=== PATIENT | male | born 1945 | race Caucasian/White ===

== ENCOUNTER → 2016-06-14 | Outpatient (CLI) | payer OTHER, MEDICARE ==
[2016-06-14 18:01] LABS: BASO % 0.6 %; BASO ABS # 0.05 K/uL (0-0.2); COMPLETE YES; EOS % 3.2 %; HEMATOCRIT 39.1 % (42-52); IG% 0.3 %; LYMPH ABS # 1.35 K/uL (1.2-3.4); MEAN CELL VOLUME 96.5 fL (80-100); MEAN CORPUSCULAR HEMOGLOBIN 32.1 pg (25-34); MEAN CORPUSCULAR HGB CONC 33.2 g/dl (32-36); MEAN PLATELET VOLUME 11.1 fL (7.4-10.4); MONO % 9.1 %; NEUT % 69.8 %; PLATELET COUNT 233 K/uL (130-400); RED BLOOD COUNT 4.05 M/uL (4.7-6.1); WHITE BLOOD COUNT 7.92 K/uL (4.8-10.8)
[2016-06-14 18:08] LABS: ALT/SGPT 17 U/L (12-78); BLOOD UREA NITROGEN 52 mg/dl (7-18); BUN/CREATININE RATIO 22.4 (10-20); CALCIUM 9.2 mg/dl (8.5-10.1); CARBON DIOXIDE 27 mmol/L (21-32); CHLORIDE 107 mmol/L (98-107); CHOLESTEROL 186 mg/dl (0-200); GLUCOSE 126 mg/dl (70-99); POTASSIUM 4.8 mmol/L (3.5-5.1); SODIUM 144 mmol/L (136-145); TRIGLYCERIDES 156 mg/dl (0-150); VERY LOW DENSITY LIPOPROT CALC 31 mg/dl
[2016-06-14 18:17] LABS: ALB/GLOB RATIO 0.8 (0.9-2); ALKALINE PHOSPHATASE 82 U/L (45-117); AST/SGOT 15 U/L (15-37); CHOLESTEROL/HDL RATIO 4.1; HDL CHOLESTEROL 45 mg/dl; LDL CHOLESTEROL CALCULATED 110 mg/dl
[2016-06-15 06:09] LABS: ESTIMATED AVERAGE GLUCOSE 174 mg/dl; HA1C FLAG Normal (Normal)
== END | disposition home or self-care (01) ==
LOC: C.LABMFLN 11:18
PROVIDERS: ATTEND Family Medicine
DX: E11.9 Type 2 diabetes mellitus without complications (principal); E03.9 Hypothyroidism, unspecified; E78.5 Hyperlipidemia, unspecified

== ENCOUNTER → 2016-09-15 | Outpatient (CLI) | payer OTHER, MEDICARE ==
[2016-09-15 18:10] LABS: THYROID STIMULATING HORMONE 2.48 uIu/ml (0.300-4.500)
== END | disposition home or self-care (01) ==
LOC: C.LABMFLN 07:29
PROVIDERS: ATTEND Family Medicine
DX: E03.9 Hypothyroidism, unspecified (principal)

== ENCOUNTER → 2016-12-24 | Outpatient (CLI) | payer OTHER, MEDICARE ==
[2016-12-24 18:03] LABS: BLOOD UREA NITROGEN 51 mg/dl (7-18); BUN/CREATININE RATIO 19.6 (10-20); CALCIUM 9.4 mg/dl (8.5-10.1); CARBON DIOXIDE 30 mmol/L (21-32); CHLORIDE 109 mmol/L (98-107); GLUCOSE 158 mg/dl (70-99); PHOSPHORUS 3.1 mg/dl (2.5-4.9); POTASSIUM 4.7 mmol/L (3.5-5.1); SODIUM 143 mmol/L (136-145)
[2016-12-25 06:19] LABS: ESTIMATED AVERAGE GLUCOSE 166 mg/dl; HA1C FLAG Normal (Normal)
== END | disposition home or self-care (01) ==
LOC: C.LABMFLN 13:08
PROVIDERS: ATTEND Family Medicine
DX: E11.22 Type 2 diabetes mellitus with diabetic chronic kidney disease (principal); N18.9 Chronic kidney disease, unspecified

== ENCOUNTER → 2017-04-13 | Outpatient (CLI) | payer OTHER, MEDICARE ==
[2017-04-13 17:56] LABS: BLOOD UREA NITROGEN 47 mg/dl (7-18); BUN/CREATININE RATIO 18.6 (10-20); CARBON DIOXIDE 29 mmol/L (21-32); CHLORIDE 108 mmol/L (98-107); CREATININE 2.51 mg/dl (0.60-1.40); GLUCOSE 171 mg/dl (70-99); PHOSPHORUS 3.3 mg/dl (2.5-4.9); POTASSIUM 4.5 mmol/L (3.5-5.1); SODIUM 140 mmol/L (136-145)
[2017-04-13 18:19] LABS: BASO % 0.8 %; BASO ABS # 0.05 K/uL (0-0.2); HEMATOCRIT 40.2 % (42-52); IG% 0.2 %; LYMPH % 15.4 %; LYMPH ABS # 0.96 K/uL (1.2-3.4); MEAN CELL VOLUME 99.8 fL (80-100); MEAN CORPUSCULAR HEMOGLOBIN 32.8 pg (25-34); MEAN CORPUSCULAR HGB CONC 32.8 g/dl (32-36); MEAN PLATELET VOLUME 11.6 fL (7.4-10.4); MONO % 7.5 %; NEUT % 72.1 %; PLATELET COUNT 212 K/uL (130-400); RED BLOOD COUNT 4.03 M/uL (4.7-6.1); WHITE BLOOD COUNT 6.25 K/uL (4.8-10.8)
[2017-04-13 19:20] LABS: ANISOCYTOSIS PRESENT; COMPLETE YES
[2017-04-14 07:00] LABS: ESTIMATED AVERAGE GLUCOSE 169 mg/dl; HA1C FLAG Normal (Normal)
== END | disposition home or self-care (01) ==
LOC: C.LABMFLN 11:10
PROVIDERS: ATTEND Family Medicine
DX: N18.9 Chronic kidney disease, unspecified (principal); E11.9 Type 2 diabetes mellitus without complications

== ENCOUNTER → 2017-07-28 | Outpatient (CLI) | payer OTHER, MEDICARE ==
[2017-07-28 18:00] LABS: BASO % 0.8 %; BASO ABS # 0.06 K/uL (0-0.2); EOS % 4.2 %; EOS ABS # 0.31 K/uL (0-0.5); HEMATOCRIT 39.8 % (42-52); IG# 0.01 K/uL (0.00-0.02); LYMPH % 14.4 %; LYMPH ABS # 1.06 K/uL (1.2-3.4); MEAN CELL VOLUME 99.5 fL (80-100); MEAN CORPUSCULAR HEMOGLOBIN 32.5 pg (25-34); MEAN CORPUSCULAR HGB CONC 32.7 g/dl (32-36); MEAN PLATELET VOLUME 11.4 fL (7.4-10.4); MONO % 8.8 %; MONO ABS # 0.65 K/uL (0.11-0.59); NEUT % 71.7 %; NEUT ABS # 5.27 K/uL (1.4-6.5); PLATELET COUNT 235 K/uL (130-400); RED CELL DISTRIBUTION WIDTH CV 14.1 % (11.5-14.5); RED CELL DISTRIBUTION WIDTH SD 51.1 fL (36.4-46.3); WHITE BLOOD COUNT 7.36 K/uL (4.8-10.8)
[2017-07-28 18:13] LABS: ALT/SGPT 19 U/L (12-78); AST/SGOT 15 U/L (15-37); BLOOD UREA NITROGEN 38 mg/dl (7-18); CALCIUM 9.2 mg/dl (8.5-10.1); CARBON DIOXIDE 29 mmol/L (21-32); CREATININE 2.21 mg/dl (0.60-1.40); GLUCOSE 147 mg/dl (70-99); SODIUM 141 mmol/L (136-145)
[2017-07-28 18:17] LABS: ALKALINE PHOSPHATASE 101 U/L (45-117); CHOLESTEROL 216 mg/dl (0-200); LDL CHOLESTEROL CALCULATED 133 mg/dl; TOTAL PROTEIN 7.3 gm/dl (6.4-8.2)
[2017-07-29 06:36] LABS: HEMOGLOBIN A1C 7.9 % (4.5-5.6)
== END | disposition home or self-care (01) ==
LOC: C.LABMFLN 16:15
PROVIDERS: ATTEND Family Medicine
DX: I25.10 Atherosclerotic heart disease of native coronary artery without angina pectoris (principal); E11.9 Type 2 diabetes mellitus without complications; E78.5 Hyperlipidemia, unspecified; E03.9 Hypothyroidism, unspecified

== ENCOUNTER 2020-01-13 00:45 | Inpatient (IN) ==
[2020-01-13 01:40] LABS: Basophils # (auto) 0.03 K/uL (0-0.2); Basophils % (auto) 0.5 %; Eosinophils # (auto) 0.28 K/uL (0-0.5); Eosinophils % (auto) 4.5 %; Hemoglobin 11.4 g/dL (14.0-18.0); Lymphocytes # (auto) 0.97 K/uL (1.2-3.4); Lymphocytes % (auto) 15.6 %; Mean Corpuscular Hemoglobin 31.7 pg (25-34); Mean Corpuscular Hgb Conc 32.6 g/dL (32-36); Mean Corpuscular Volume 97.2 fL (80-100); Monocytes # (auto) 0.34 K/uL (0.11-0.59); Monocytes % (auto) 5.5 %; Neutrophils # (auto) 4.61 K/uL (1.4-6.5); Neutrophils % (auto) 73.9 %; Platelet Count 188 K/uL (130-400); RDW Coefficient of Variation 15.3 % (11.5-14.5); RDW Standard Deviation 54.6 fL (36.4-46.3); White Blood Count 6.23 K/uL (4.8-10.8)
[2020-01-13 01:56] LABS: Calcium 8.3 mg/dl (8.5-10.1); Creatinine Clr Calc Pharmacy 16.7 ml/min; Est GFR (African American) 17.5; Est GFR (Non-African American) 15.1; Potassium 4.3 mmol/L (3.5-5.1)
[2020-01-13 02:08] LABS: Appearance Urine Clear (Clear); Bacteria Urine Automated Negative (Negative); Bilirubin Urine Negative (Negative); Blood Urine 3+ (Negative); Epithelial Cell Urine Auto 0-5 /lpf (0-5); Glucose Urine UA Trace (Negative); Ketones Urine Negative (Negative); Leukocyte Esterase Urine Negative (Negative); Nitrite Urine Negative (Negative); Protein Urine 3+ (Negative); RBC Urine Automated >30 /hpf (0-4); Specific Gravity Urine 1.015 (1.000-1.030); Urobilinogen Urine Negative (Negative)
[2020-01-13 02:13] LABS: Color Urine Red
--- NOTE | 2020-01-13 02:15 | Emergency Department Note ---
Impression & Plan Hematuria, Acute urinary retention ED Provider Note NAME: JORGE CHOI AGE: 74 SEX: M ARRIVES VIA: Walk-In INFORMANT: Patient, patient's ED PROVIDER(S): Kelly Kenny DO CHIEF COMPLAINT: Hematuria and urinary retention PLAN: Disposition: Admission to the [facility] for evaluation by urology Condition: Stable MEDICAL DECISION MAKING: Patient presents to the emergency department unable to urinate. The patient has a history of bladder cancer and underwent a scope [address] Awan. Since that time, he has had hematuria. Around 4 PM this evening, the patient noted that he was having difficulty urinating and that he could only pass dribbles of urine. Later on in the evening, the patient could not pass any urine and became quite uncomfortable. Bladder scan showed 240 mL's of urine but the patient was quite uncomfortable. A Rosa catheter was placed and he passed a large amount of urine Triage Nursing notes reviewed and agree them. Additional history obtained from the patient's who was at the bedside Prior medical records reviewed Vital Signs: reviewed and remarkable for hypertension Differential diagnosis: Urinary retention, hematuria, obstructive uropathy, anemia ER treatment provided: Rosa catheter placement, bladder scan, Rosa catheter irrigation, IV normal saline Laboratory studies: See below Imaging studies: Bladder scan: 240 mL's of urine HPI: 74/M arrives for evaluation of urinary retention. The patient has a history of bladder cancer and underwent a scope [address] Awan. Since that time he has had hematuria. Around 4 PM this evening, the patient noted that he was having difficulty urinating and that he could only pass dribbles of urine. Later on in the evening, the patient could not pass any urine and became quite uncomfortable. The patient became quite nauseated when trying to urinate. ROS: See above HPI for pertinent positives & negatives. A total of 10 systems reviewed and were otherwise negative. PAST MEDICAL HISTORY:See Below PAST SURGICAL HISTORY:See Below FAMILY HISTORY:See Below SOCIAL HISTORY:See Below HOME MEDICATIONS:See list ALLERGIES:See VITALS:See Below PHYSICAL EXAMINATION: HEENT: Head - normocephalic and atraumatic Pupils are equal, round, and reactive to light. Extraocular eye muscles are intact, and sclera are anicteric. Nose - moist nasal mucosa without discharge. Mouth - moist buccal mucosa. Oropharynx is nonerythematous and there is no tonsillar exudate or edema noted. Neck: Supple; no cervical lymphadenopathy Heart: Regular rate and rhythm. There is a normal S1 and S2 with no murmurs, clicks, or gallops appreciated. Lungs: Clear to auscultation bilaterally with no wheezes, rales, or rhonchi. Abdomen: Extremely distended and protuberant. Moderate tenderness to palpation in suprapubic region. There are normal bowel sounds. Extremities: No evidence of cyanosis, clubbing, or edema. There are easily palpable peripheral pulses. Skin: warm and dry with good turgor and no rashes. ED COURSE: Times/Reassessments: 0100: The patient was evaluated in room a 9. A complete history and physical was performed. Previous electronic medical records were reviewed. Nursing staff did a bladder scan and then placed a Rosa catheter. Large amount of blood and urine came from the bladder. They attempted irrigation but the bleeding persisted. Laboratory studies were drawn as above. The patient was mildly anemic. He had stopped his baby aspirin 2 days ago because of the persistent bleeding. He was anticipating the need for cautery according to the discussion he had with Dr. Awan earlier in the week. Patient was noted to have an increased BUN and creatinine compared to last week. He was given a bolus of IV normal saline solution. A continuous bladder irrigation set up was performed and the catheter was switched out. The patient will require admission to the [facility] and then evaluation by urology. The patient remained hemodynamically stable. Patient started to have increased pain and was given a dose of Dilaudid here in the emergency department prior to admission. Kelly Kenny DO Past Med/Surg History Medical History (Updated 01/14/20 @ 01:32 by Kelly Kenny DO) Acid reflux Adenomatous polyp of colon Benign essential hypertension Benign prostatic hyperplasia CAD (coronary atherosclerotic disease) Cancer HX BLADDER CANCER SURGERY-CHEMO/RADIATION [facility] 2017 Chronic kidney disease F/U DR LARA Chronic obstructive pulmonary disease RARELY NEED TO USE RESCUE INHALER. INCREASED SHORTNESS OF BREATH CURRENTLY, BUT DUE TO ANEMIA. Diabetes mellitus Diabetes mellitus, type 2 Generalized osteoarthritis of multiple sites Gout Gross hematuria Hearing loss History of stroke without residual deficits OCCURRED DURING AAA REPAIR [facility] 5-6 YRS 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-NO ISSUES SINCE Hyperlipidemia Hypothyroidism Kidney stones Passed x1 Malignant neoplasm of lateral wall of bladder (01/16/18) Past myocardial infarction Port-A-Cath in place CURRENT FUNCTIONING A-PORT IN PLACE Secondary hyperparathyroidism Vitamin D deficiency Surgical History H/O arthroscopy of knee H/O colonoscopy History of biopsy of bladder History of cardiac cath NO STENTS (~10 YEARS AGO)-NO ISSUES SINCE History of carpal tunnel release RIGHT History of cataract surgery BILATERAL History of cystoscopy S/P AAA (abdominal aortic aneurysm) repair Status post biopsy of kidney Family History Grandfather , in his eighties No problems noted. Grandmother , young cause unknown No problems noted. Grandfather , in his eighties No problems noted. Grandmother , did have breast cancer but in her eighties of unknown cause No problems noted. Father , He in his sixties had had three strokes and high blood pressure He had had a kidney removed perhaps from cancer No problems noted. Mother , in her mid seventies complications from smoking No problems noted. Daughter Age: 48 No problems noted. Daughter Age: 45 No problems noted. Daughter Age: 40 No problems noted. Brother , at age 7 of a stroke No problems noted. Social History Smoking Status: Current every day smoker Cigarettes Per Day: 10; Second Hand Exposure: No; Hx Alcohol Use: No Hx Substance Use: No Preferred Language: Slovenian Communication Ability: Effective Visual Impairment: No Limitations Senior Occupational Therapist Required: No Beliefs That Will Affect Care: None Current Living Situation: Alone current occupational status: retired Feels Safe at Home: Yes Safety Concerns: Feels Safe At This Time Allergies Allergies Allergy/AdvReac Type Severity Reaction Status Date / Time atorvastatin [From Lipitor] AdvReac muscle Verified 01/13/20 02:20 aches RADIOACTIVE NUCLEAR STRESS Allergy Unknown "BP WENT Uncoded 01/13/20 02:20 TEST DYE OUT OF WHACK" Home Meds Home Medications Medication Instructions Recorded Confirmed albuterol sulfate 2 puff INHALATION Q6H PRN 02/27/19 01/13/20 aspirin 81 mg PO QAM 08/14/19 01/13/20 amlodipine 2.5 mg tablet 2.5 mg PO DAILY@18 tab 10/22/19 01/13/20 Previous Rx's Medication Instructions Recorded allopurinol 300 mg tablet 300 mg PO QAM #90 tab 03/16/19 valsartan 160 mg tablet 160 mg PO QAM #90 tab 07/02/19 metoprolol succinate 100 mg 100 mg PO QPM #90 tab 07/09/19 tablet,extended release 24 hr lancets 33 gauge #100 ea 08/17/19 dulaglutide 0.75 mg/0.5 mL 0.75 mg SQ WEEKLY #2 ml 09/19/19 subcutaneous pen injector levothyroxine 100 mcg tablet 100 mcg PO DAILY #90 tab 09/19/19 blood sugar diagnostic #100 ea 10/08/19 rosuvastatin 20 mg tablet 20 mg PO DAILY #90 tab 12/04/19 Results & Data (ED) Vital Signs Vital Signs - 24 hr 01/13/20 02:28 01/13/20 04:30 Pulse Rate [Right Finger] 70 82 Respiratory Rate 16 16 Blood Pressure [Right Arm] 163/92 H 157/95 H Blood Pressure Mean [Right Arm] 115 115 Pulse Oximetry 97 96 Oxygen Delivery Method Room Air Room Air Laboratory Data Result diagrams: 01/13/20 12:20 01/13/20 12:26 Lab Results 01/13/20 01/13/20 01/13/20 Range/Units 01:20 01:28 01:31 WBC 6.23 (4.8-10.8) K/uL RBC 3.60 L (4.7-6.1) M/uL Hgb 11.4 L (14.0-18.0) g/dL Hct 35.0 L (42-52) % MCV 97.2 (80-100) fL MCH 31.7 (25-34) pg MCHC 32.6 (32-36) g/dL RDW Std Deviation 54.6 H (36.4-46.3) fL RDW Coeff of Josie 15.3 H (11.5-14.5) % Plt Count 188 (130-400) K/uL MPV 10.0 (7.4-10.4) fL Immature Gran % (Auto) 0.0 % Neut % (Auto) 73.9 % Lymph % (Auto) 15.6 % [place] % (Auto) 5.5 % Eos % (Auto) 4.5 % Baso % (Auto) 0.5 % Neut # (Auto) 4.61 (1.4-6.5) K/uL Lymph # (Auto) 0.97 L (1.2-3.4) K/uL [place] # (Auto) 0.34 (0.11-0.59) K/uL Eos # (Auto) 0.28 (0-0.5) K/uL Baso # (Auto) 0.03 (0-0.2) K/uL Immature Gran # (Auto) 0.00 (0.00-0.02) K/uL Sodium 145 (136-145) mmol/L Potassium 4.3 (3.5-5.1) mmol/L Chloride 113 H (98-107) mmol/L Carbon Dioxide 28 (21-32) mmol/L Anion Gap 4.0 (3-11) BUN 60 H (7-18) mg/dl Creatinine 3.76 H (0.6-1.4) mg/dl Est Cr Clr Drug Dosing 16.7 ml/min Est GFR ( Amer) 17.5 Est GFR (Non-Af Amer) 15.1 BUN/Creatinine Ratio 16.0 (10-20) Glucose 176 H (70-99) mg/dl Calcium 8.3 L (8.5-10.1) mg/dl Urine Color Red Urine Appearance Clear (Clear) Urine pH 7.0 (4.5-7.5) Ur Specific [place] 1.015 (1.000-1.030) Urine Protein 3+ H (Negative) Urine Glucose (UA) Trace H (Negative) Urine Ketones Negative (Negative) Urine Blood 3+ H (Negative) Urine Nitrite Negative (Negative) Urine Bilirubin Negative (Negative) Urine Urobilinogen Negative (Negative) Ur Leukocyte Esterase Negative (Negative) Urine WBC (Auto) 1-5 (0-5) /hpf Urine RBC (Auto) >30 H (0-4) /hpf U Hyaline Cast (Auto) 1-5 (0-5) /lpf U Epithel Cells (Auto) 0-5 (0-5) /lpf Urine Bacteria (Auto) Negative (Negative) Urine Crystals Not Reportable Administered Medications Allopurinol (Allopurinol 300 Mg Tab) 300 mg PO QAM [facility] Stop: 02/12/20 08:59 Last Admin: 01/13/20 09:40 Dose: 300 mg Documented by: [id number] Amlodipine Besylate (Amlodipine Besylate 5 Mg Tab) 2.5 mg PO DAILY@1800 [facility] Stop: 02/12/20 17:59 Last Admin: 01/13/20 17:59 Dose: 2.5 mg Documented by: [id number] Glucose (Glucose 40% Gel 15 Gm Tube) 15 - 30 gm PO UD PRN; Protocol PRN Reason: Hypoglycemia Protocol Stop: 02/12/20 06:34 Last Admin: 01/14/20 00:55 Dose: 15 gm Documented by: [id number] Ceftriaxone Sodium 1,000 mg/ (Dextrose) 50 mls @ 100 mls/hr IV Q24H JESSE; Protocol Stop: 01/23/20 07:59 Last Infusion: 01/13/20 08:47 Dose: 0 mls/hr Documented by: [id number] Admin: 01/13/20 08:15 Dose: 100 mls/hr Documented by: [id number] Sodium Chloride (Nss 1000ml) 1,000 mls @ 80 mls/hr IV .[id number] [facility] Stop: 02/12/20 06:34 Last Admin: 01/13/20 19:20 Dose: 80 mls/hr Documented by: [id number] Infusion: 01/13/20 19:20 Dose: 0 mls/hr Documented by: [id number] Admin: 01/13/20 07:55 Dose: 80 mls/hr Documented by: [id number] Insulin Glargine (Insulin Glargine Solostar 100 Units/Ml 3 Ml Pen) 13 units SC BID [facility] Stop: 02/12/20 08:59 Last Admin: 01/13/20 20:32 Dose: 13 units Documented by: [id number] Cosigned by: [id number] Admin: 01/13/20 09:41 Dose: 13 units Documented by: [id number] Cosigned by: [id number] Metoprolol Succinate (Metoprolol Succ 50mg Ext Rel Tab) 100 mg PO QPM [facility] Stop: 02/12/20 20:59 Last Admin: 01/13/20 19:22 Dose: 100 mg Documented by: [id number] Rosuvastatin Calcium (Rosuvastatin Calcium 20 Mg Tab) 20 mg PO DAILY@1800 [facility] Stop: 02/12/20 17:59 Last Admin: 01/13/20 17:59 Dose: 20 mg Documented by: [id number] Valsartan (Valsartan 80 Mg Tab) 160 mg PO QAM JESSE Stop: 02/12/20 08:59 Last Admin: 01/13/20 09:41 Dose: 160 mg Documented by: [id number] Discontinued Medications Hydromorphone HCl (Hydromorphone Inj 0.5 Mg/0.5 Ml Syr) 0.5 mg IV NOW STA Stop: 01/13/20 04:58 Last Admin: 01/13/20 05:17 Dose: 0.5 mg Documented by: [id number] Sodium Chloride (Nss) 500 mls @ 999 mls/hr IV .Q31M ONE Stop: 01/13/20 03:02 Last Infusion: 01/13/20 03:41 Dose: 0 mls/hr Documented by: [id number] Admin: 01/13/20 03:16 Dose: 999 mls/hr Documented by: [id number] Insulin Aspart (Insulin Aspart 100 Units/Ml 3 Ml Pen) 0 units SC ACHS JESSE Stop: 02/12/20 07:29 Last Admin: 01/13/20 20:32 Dose: Not Given Documented by: [id number] Cosigned by: [id number] Admin: 01/13/20 17:45 Dose: 5 units Documented by: [id number] Cosigned by: [id number] Admin: 01/13/20 12:46 Dose: 1 units Documented by: [id number] Cosigned by: [id number] Admin: 01/13/20 09:41 Dose: 2 units Documented by: [id number] Cosigned by: [id number] Insulin Human NPH (Insulin Human Nph) 20 units SC NOW ONE Stop: 01/13/20 16:31 Last Admin: 01/13/20 17:45 Dose: 20 units Documented by: [id number] Cosigned by: [id number] Lidocaine HCl (Lidocaine 2% Jelly 5 Ml Tube) Confirm Administered Dose 5 ml .ROUTE .STK-MED ONE Stop: 01/13/20 03:19 Last Admin: 01/13/20 03:20 Dose: 5 ml Documented by: [id number] Prednisone (Prednisone 20 Mg Tab) 40 mg PO NOW ONE Stop: 01/13/20 16:16 Last Admin: 01/13/20 17:06 Dose: 40 mg Documented by: [id number] Discharge Plan Visit Data Chief Complaint: Unable to Void Stated Complaint: UNABLE TO VOID ED Provider: Kelly Kenny Discharge Problem: Hematuria, Acute urinary retention Patient Disposition: Admitted As Inpatient Discharge Instructions Interventions: ED Discharge Assessment Last Done: 01/13/20 06:20 Discharge Problem: Hematuria Qualifiers: Hematuria type: gross Qualified Code(s): R31.0 - Gross hematuria
[2020-01-13] MEDS ORDERED: SODIUM CHLORIDE 0.9% 500 ML IV ONE (02:32)
[2020-01-13] MEDS ORDERED: LIDOCAINE 2% JELLY 5 ML TUBE ONE (03:18)
--- NOTE | 2020-01-13 04:46 | History & Physical Report ---
Date of Service January 13, 2020 Assessment & Plan (1) Gross hematuria: 74-year-old male with past medical history hyperlipidemia, coronary artery disease, hypertension, hypothyroidism, type 2 diabetes, chronic kidney disease stage IV, gout, BPH, T2 bladder cancer with TURBT in December 2017 and chemoradiation presents with concerns of hematuria and inability to void. Hematuria UA showing 3+ blood, >30 RBC with no markers of concern for infection Patient was seen by urology Dr. Awan on January 07, 2020 and had clear cystoscopy showing radiation cystitis, no papillary tumors, no active bleeding Most recent PSA was 0.551 last week We will start CBI here We will start IV Rocephin for now Holding ASA 81 mg Appreciate urology consult Concern for metastasis Recent CT on 12/24/19 showed: 2 sclerotic lesions in the bony pelvis that were highly concerning for osseous metastatic disease PET scan 01/07/20 showed: Mildly enlarged 12 mm FDG avid AP window lymph node and bilateral FDG avid adrenal nodules. No evidence of FDG avid abdominal or pelvic lymphadenopathy. The preceding described sclerotic skeletal lesions are not FDG avid Patient wants to see oncology as outpatient, however this has yet to happen. Appreciate oncology consult while inpatient ALESSANDRA in setting of CKD IV Creatinine 3.76 admission. Baseline creatinine ~2.2-3.0 mg/dL IVF with NSS@80 mls/hr. Avoid nephrotoxins where able Daily BMP HLD/CAD/HTN Continue amlodipine 2.5 mg, metoprolol succinate ER 100 mg, rosuvastatin 20 mg, valsartan 160 mg. Holding ASA 81 as above DM 2 A1c 6.30 November 2019 Holding home dulaglutide. Will place on SSI Hypothyroidism TSH WNL 0.756 December 2019 Continue levothyroxine 100 mcg Gout Continue allopurinol 300 mg Tobacco abuse Patient was strongly advised to quit smoking. Continue cessation education FEN/GI: HH/DM2 diet. NSS@80 DVT prophylaxis: Chemoprophylaxis deferred. SCDs Full code Dispo: MedSurg History of Present Illness Chief Complaint: Hematuria Primary Care Provider: Hilda Berry MD 74-year-old male with past medical history hyperlipidemia, coronary artery disease, hypertension, hypothyroidism, type 2 diabetes, chronic kidney disease stage IV, gout, BPH, T2 bladder cancer with TURBT in December 2017 and chemoradiation presents with concerns of hematuria and inability to void. Patient was seen by urology Dr. Awan on January 07, 2020 for cystoscopy (showing radiation cystitis, no papillary tumors, no active bleeding) for recurrent bleeding. Patient noted small amount of blood on rare occasions. Before in the prior several months he was well controlled. Earlier this year he had cauterization secondary to refractory bleeding. Since the cystoscopy patient notes ongoing worsening hematuria. Today patient noted an inability to urinate with last urination occurring about 4 PM, which prompted ER visit. Patient notes associated nausea when attempting to urinate and had some diarrhea in the ED. Patient otherwise denies any fevers, chills, sweats, dysuria, urinary urgency/frequency, other urethral discharge, abdominal pain, chest pain, shortness of breath, known sick contacts or recent travel anywhere. Patient with no other acute concerns or complaints. No pelvic injury. Recent CT on 12/24/19 showed: 2 sclerotic lesions in the bony pelvis that were highly concerning for osseous metastatic disease. Most recent PSA was 0.551 on 01/04/20. PET scan 01/07/20 showed: Mildly enlarged 12 mm FDG avid AP window lymph node and bilateral FDG avid adrenal nodules. No evidence of FDG avid abdominal or pelvic lymphadenopathy. The preceding described sclerotic skeletal lesions are not FDG avid. Plan was for patient to follow-up with oncology later this week, but this has not occurred yet. Pertinent labs: Hemoglobin 11.4, BUN 60, creatinine 3.76, glucose 176, otherwise largely unremarkable UA: 3+ blood, >30 RBC ER course: Rosa placed draining large amount of urine after bladder scan showed 240 mL of urine Social history: Tobacco1/2 pack/day smoker. Denies any alcohol or illicit drug use. Allergies Allergy/AdvReac Type Severity Reaction Status Date / Time atorvastatin [From Lipitor] AdvReac muscle Verified 01/13/20 02:20 aches RADIOACTIVE NUCLEAR STRESS Allergy Unknown "BP WENT Uncoded 01/13/20 02:20 TEST DYE OUT OF WHACK" Home Medications Home Medications Medication Instructions Recorded Confirmed Type albuterol sulfate 2 puff INHALATION Q6H PRN 02/27/19 01/13/20 History allopurinol 300 mg tablet 300 mg PO QAM #90 tab 03/16/19 01/13/20 Rx valsartan 160 mg tablet 160 mg PO QAM #90 tab 07/02/19 01/13/20 Rx metoprolol succinate 100 mg 100 mg PO QPM #90 tab 07/09/19 01/13/20 Rx tablet,extended release 24 hr aspirin 81 mg PO QAM 08/14/19 01/13/20 History lancets 33 gauge #100 ea 08/17/19 01/07/20 Rx dulaglutide 0.75 mg/0.5 mL 0.75 mg SQ WEEKLY #2 ml 09/19/19 01/13/20 Rx subcutaneous pen injector levothyroxine 100 mcg tablet 100 mcg PO DAILY #90 tab 09/19/19 01/13/20 Rx blood sugar diagnostic #100 ea 10/08/19 01/07/20 Rx amlodipine 2.5 mg tablet 2.5 mg PO DAILY@18 tab 10/22/19 01/13/20 History rosuvastatin 20 mg tablet 20 mg PO DAILY #90 tab 12/04/19 01/13/20 Rx Past Med/Surg History Medical History (Updated 01/14/20 @ 01:32 by Kelly Kenny DO) Acid reflux Adenomatous polyp of colon Benign essential hypertension Benign prostatic hyperplasia CAD (coronary atherosclerotic disease) Cancer HX BLADDER CANCER SURGERY-CHEMO/RADIATION [facility] 2018 Chronic kidney disease F/U DR LARA Chronic obstructive pulmonary disease RARELY NEED TO USE RESCUE INHALER. INCREASED SHORTNESS OF BREATH CURRENTLY, BUT DUE TO ANEMIA. Diabetes mellitus Diabetes mellitus, type 2 Generalized osteoarthritis of multiple sites Gout Gross hematuria Hearing loss History of stroke without residual deficits OCCURRED DURING AAA REPAIR [facility] 5-6 YRS 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-NO ISSUES SINCE Hyperlipidemia Hypothyroidism Kidney stones Passed x1 Malignant neoplasm of lateral wall of bladder (01/16/18) Past myocardial infarction Port-A-Cath in place CURRENT FUNCTIONING A-PORT IN PLACE Secondary hyperparathyroidism Vitamin D deficiency Surgical History H/O arthroscopy of knee H/O colonoscopy History of biopsy of bladder History of cardiac cath NO STENTS (~10 YEARS AGO)-NO ISSUES SINCE History of carpal tunnel release RIGHT History of cataract surgery BILATERAL History of cystoscopy S/P AAA (abdominal aortic aneurysm) repair Status post biopsy of kidney Family History Grandfather , in his eighties No problems noted. Grandmother , young cause unknown No problems noted. Grandfather , in his eighties No problems noted. Grandmother , did have breast cancer but in her eighties of unknown cause No problems noted. Father , He in his sixties had had three strokes and high blood pressure He had had a kidney removed perhaps from cancer No problems noted. Mother , in her mid seventies complications from smoking No problems noted. Daughter Age: 48 No problems noted. Daughter Age: 45 No problems noted. Daughter Age: 40 No problems noted. Brother , at age 7 of a stroke No problems noted. Social History Smoking Status: Current every day smoker Cigarettes Per Day: 10; Second Hand Exposure: No; Hx Alcohol Use: No Hx Substance Use: No Preferred Language: Sami Communication Ability: Effective Visual Impairment: No Limitations Deicer Finisher Required: No Beliefs That Will Affect Care: None Current Living Situation: Alone current occupational status: retired Feels Safe at Home: Yes Safety Concerns: Feels Safe At This Time Review of Systems Review of Systems: All systems reviewed & are unremarkable except as noted in HPI & below Results & Data Results & Data ([facility]) Vital Signs (Past 12 Hours) Vital Signs Temp Pulse Pulse Resp BP BP Pulse Ox 01/13/20 02:28 70 16 163/92 H 97 01/13/20 00:53 36.6 C 87 18 160/85 H 95 Laboratory Results Laboratory Results - last 24 hr 01/13/20 01/13/20 01/13/20 01:20 01:28 01:31 WBC 6.23 RBC 3.60 L Hgb 11.4 L Hct 35.0 L MCV 97.2 MCH 31.7 MCHC 32.6 RDW Std Deviation 54.6 H RDW Coeff of Josie 15.3 H Plt Count 188 MPV 10.0 Immature Gran % (Auto) 0.0 Neut % (Auto) 73.9 Lymph % (Auto) 15.6 [place] % (Auto) 5.5 Eos % (Auto) 4.5 Baso % (Auto) 0.5 Neut # (Auto) 4.61 Lymph # (Auto) 0.97 L [place] # (Auto) 0.34 Eos # (Auto) 0.28 Baso # (Auto) 0.03 Immature Gran # (Auto) 0.00 Sodium 145 Potassium 4.3 Chloride 113 H Carbon Dioxide 28 Anion Gap 4.0 BUN 60 H Creatinine 3.76 H Est Cr Clr Drug Dosing 16.7 Est GFR ( Amer) 17.5 Est GFR (Non-Af Amer) 15.1 BUN/Creatinine Ratio 16.0 Glucose 176 H Calcium 8.3 L Urine Color Red Urine Appearance Clear Urine pH 7.0 Ur Specific [place] 1.015 Urine Protein 3+ H Urine Glucose (UA) Trace H Urine Ketones Negative Urine Blood 3+ H Urine Nitrite Negative Urine Bilirubin Negative Urine Urobilinogen Negative Ur Leukocyte Esterase Negative Urine WBC (Auto) 1-5 Urine RBC (Auto) >30 H U Hyaline Cast (Auto) 1-5 U Epithel Cells (Auto) 0-5 Urine Bacteria (Auto) Negative Urine Crystals Not Reportable Code Status & VTE Plan Code Status Full Supervising Physician Co-Signing Physician Notes Attending addendum: I have physically seen this patient, have supervised the medical residents activities, and agree with the H&P unless as otherwise noted. Assessment and Plan: Gross hematuria- Start CBI Ceftriaxone 1 g IV daily Hold aspirin If bleeding persists give DDAVP Metastatic disease- Has outpatient oncology appointment scheduled. Consult oncology see inpatient. ALESSANDRA on CKD- Creatinine 3.76 upon admission with baseline 2.2-3.0. NSS 80 mils per hour. Repeat BMP in a.m. CAD/hypertension- Continue amlodipine, metoprolol succinate and valsartan with hold parameters. Hyperlipidemia- Continue simvastatin 20 mg daily Diabetes mellitus- Hold dulaglutide. Placed on Accu-Cheks before meals and at bedtime with NovoLog coverage for scale Remaining orders and notations as noted Resident Activity Tracking Resident Involvement: Resident Care Provided Care Provided: Adult [facility] Medicine
[2020-01-13] MEDS ORDERED: HYDROmorphone INJ 0.5 MG/0.5 ML SYR IV STA (04:57)
[2020-01-13] MEDS ORDERED: ACETAMINOPHEN 325 MG TAB PO PRN (06:35)
[2020-01-13] MEDS ORDERED: ALUMINUM/MAGNESIUM SUSP 30 ML UDC PO PRN (06:35)
[2020-01-13] MEDS ORDERED: ONDANSETRON INJ 2 MG/ML 2 ML VIAL IV PRN (06:35)
[2020-01-13] MEDS ORDERED: DEXTROSE 50% 50 ML SYRINGE IV PRN (06:35)
[2020-01-13] MEDS ORDERED: GLUCAGON FOR INJ 1 MG VIAL SQ PRN (06:35)
[2020-01-13] MEDS ORDERED: GLUCOSE 10 TABS/TUBE PO PRN (06:35)
[2020-01-13] MEDS ORDERED: ALBUTEROL HFA 8 GM INHALER INH PRN (06:35)
[2020-01-13] MEDS: SODIUM CHLORIDE 0.9% 1000ML 1,000 ML IV SCH ×2 (07:55→19:20)
[2020-01-13] MEDS: cefTRIAXone SODIUM 1,000 MG in DEXTROSE 5% 50 ML IV SCH (08:15)
[2020-01-13] MEDS ORDERED: ROSUVASTATIN CALCIUM 20 MG TAB PO SCH (09:00)
[2020-01-13] MEDS ORDERED: AMLODIPINE BESYLATE 5 MG TAB PO SCH (09:00)
[2020-01-13] MEDS: allopurinoL 300 MG TAB PO SCH (09:40)
[2020-01-13] MEDS: INSULIN GLARGINE SOLOSTAR 100 UNITS/ML 3 ML PEN SC SCH ×2 (09:41→20:32)
[2020-01-13] MEDS: VALSARTAN 80 MG TAB PO SCH (09:41)
[2020-01-13] MEDS: INSULIN ASPART 100 UNITS/ML 3 ML PEN SC SCH ×4 (09:41→20:32)
[2020-01-13] MEDS ORDERED: Nursing to Pharmacy Communication SCH (10:30)
--- NOTE | 2020-01-13 11:44 | Urology Consultation ---
Date of Consultation January 13, 2020 Assessment & Plan (1) Gross hematuria: Patient flushes easily and is on a medium drip of CBI. Patient wants Dr. Aawn informed LUCY of his condition - assured that I would sign out tonight. Will make patient NPO after midnight incase he would need an intervention based on his history. Continue PRN flushing by nursing staff Continue abx Present on Admission?: Yes History of Present Illness Reason for Consultation: Hematuria Patient with a history of gross hematuria in the past requiring clot evac and fulguration. He has had XRT in the past. He states that he had a cystoscopy in the office with Dr. Awan last Tuesday and things have worsened. Most of the history of is provided by the as the patient is visibly upset during the encounter. She states that he began to have pain last night and problems emptying his bladder. She took him to the ER. He was admitted and CBI started. He is having some small clots when he is irrigated by nursing. He is running at a medium drip. He has no pain unless the catheter is blocked. He reports that he had a fulguration in the spring with Dr. Awan. No SOB or CP. He denies fever, N/V. He is adamant that he wants Dr. Awan contacted regarding his case. Attending Physician: Eleuterio Alba, Allergies Allergy/AdvReac Type Severity Reaction Status Date / Time atorvastatin [From Lipitor] AdvReac muscle Verified 01/13/20 02:20 aches RADIOACTIVE NUCLEAR STRESS Allergy Unknown "BP WENT Uncoded 01/13/20 02:20 TEST DYE OUT OF WHACK" Home Medications Home Medications Medication Instructions Recorded Confirmed Type albuterol sulfate 2 puff INHALATION Q6H PRN 02/27/19 01/13/20 History allopurinol 300 mg tablet 300 mg PO QAM #90 tab 03/16/19 01/13/20 Rx valsartan 160 mg tablet 160 mg PO QAM #90 tab 07/02/19 01/13/20 Rx metoprolol succinate 100 mg 100 mg PO QPM #90 tab 07/09/19 01/13/20 Rx tablet,extended release 24 hr aspirin 81 mg PO QAM 08/14/19 01/13/20 History lancets 33 gauge #100 ea 08/17/19 01/07/20 Rx dulaglutide 0.75 mg/0.5 mL 0.75 mg SQ WEEKLY #2 ml 09/19/19 01/13/20 Rx subcutaneous pen injector levothyroxine 100 mcg tablet 100 mcg PO DAILY #90 tab 09/19/19 01/13/20 Rx blood sugar diagnostic #100 ea 10/08/19 01/07/20 Rx amlodipine 2.5 mg tablet 2.5 mg PO DAILY@18 tab 10/22/19 01/13/20 History rosuvastatin 20 mg tablet 20 mg PO DAILY #90 tab 12/04/19 01/13/20 Rx Patient History Medical History Acid reflux Adenomatous polyp of colon Benign essential hypertension Benign prostatic hyperplasia CAD (coronary atherosclerotic disease) Cancer HX BLADDER CANCER SURGERY-CHEMO/RADIATION [facility] 2017 Chronic kidney disease F/U DR LARA Chronic obstructive pulmonary disease RARELY NEED TO USE RESCUE INHALER. INCREASED SHORTNESS OF BREATH CURRENTLY, BUT DUE TO ANEMIA. Diabetes mellitus Diabetes mellitus, type 2 Generalized osteoarthritis of multiple sites Gout Gross hematuria Hearing loss History of stroke without residual deficits OCCURRED DURING [place] [facility] [place]6 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-NO ISSUES SINCE Hyperlipidemia Hypothyroidism Kidney stones Passed x1 Malignant neoplasm of lateral wall of bladder (01/16/18) Past myocardial infarction Port-A-Cath in place CURRENT FUNCTIONING A-PORT IN PLACE Secondary hyperparathyroidism Vitamin D deficiency Surgical History H/O arthroscopy of knee H/O colonoscopy History of biopsy of bladder History of cardiac cath NO STENTS (~10 YEARS AGO)-NO ISSUES SINCE History of carpal tunnel release RIGHT History of cataract surgery BILATERAL History of cystoscopy S/P AAA (abdominal aortic aneurysm) repair Status post biopsy of kidney Family History Grandfather , in his eighties No problems noted. Grandmother , young cause unknown No problems noted. Grandfather , in his eighties No problems noted. Grandmother , did have breast cancer but in her eighties of unknown cause No problems noted. Father , He in his sixties had had three strokes and high blood pressure He had had a kidney removed perhaps from cancer No problems noted. Mother , in her mid seventies complications from smoking No problems noted. Daughter Age: 48 No problems noted. Daughter Age: 45 No problems noted. Daughter Age: 40 No problems noted. Brother , at age 7 of a stroke No problems noted. 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 In the restroom there was about 100cc of urine in a container with small clots. I flushed the catheter with about 300 cc of saline. I removed about 30cc of small clot. He was uncomfortable during the flush. CBI restarted at a medium rate and completely clear. angry affect Results & Data ([facility]) Vital Signs (Past 12 Hours) Vital Signs Temp Pulse Pulse Resp BP BP Pulse Ox 01/13/20 06:29 36.8 C 87 16 165/86 H 98 01/13/20 06:20 76 16 145/73 H 96 01/13/20 05:44 79 14 135/79 95 01/13/20 04:30 82 16 157/95 H 96 01/13/20 02:28 70 16 163/92 H 97 01/13/20 00:53 36.6 C 87 18 160/85 H 95 PG Care Time/CCT Total # of Minutes Spent Total Time Spent with Patient: Total time spent is greater than 50% in coordination of care (as documented) at patient's floor/unit and/or counseling patient: Coding Level of Care Code 59453 Initial Inpt Care Lvl 3 Medical Decision Making High Complexity Diagnoses Gross hematuria R31.0 Time Spent (min) 30
--- NOTE | 2020-01-13 11:47 | Consultation Report ---
DATE OF CONSULTATION: 01/13/2020 HISTORY OF PRESENT ILLNESS: The patient is a 74-year-old man admitted for hematuria. He has a history of bladder cancer. In 2018, the patient had an evaluation for the left lower quadrant abdominal pain. His evaluation included a CT of the abdomen and pelvis. The CT scans showed evidence of diverticulitis, but also an area of nodular thickening at the lateral aspect on the right side of bladder. A cystoscopy was performed on 12/29/2017 showing a papillary bladder tumor on right lateral wall. On 01/16, patient underwent a TURBT with resection of all evidence of disease. Pathology showed a high-grade urothelial cancer with a clear cell appearance. Immunohistochemistry showed a GATA3 strongly positive. In summary, the patient was felt to have a urothelial cancer with clear cell features. Staging CT scans showed a 6 mm right upper lobe nodule and a 4 mm perifissural nodule in the right middle lobe. No metastatic disease was seen. It was elected to treat the patient with chemoradiation. He thus received mitomycin C along with 5-FU and radiation. The patient recently has been plagued with persistent hematuria. He was recystoscoped 6 days ago and no evidence of recurrent cancer was seen. The patient had a PET scan recently, which showed avid aortopulmonary window node as well as small avid areas in both adrenal glands. The patient it should be known has diabetes as well as chronic kidney disease. His urologist is Dr. Awan. IMPRESSION: 1. High-grade invasive bladder cancer diagnosed in 2018 as described above. 2. Status post chemoradiation therapy with mitomycin and 5-FU. 3. Hematuria, most likely due to effects of radiation therapy. 4. Avid lesions, aortopulmonary node as well as bilateral adrenal nodules. FOLLOWING RECOMMENDATIONS ARE MADE: 1. The patient should be seen by urology. 2. Repeat cystoscopy should be considered with the hope of cauterizing any bleeding lesion that is visualized. 3. A tapering course of prednisone should be initiated. Since the patient is diabetic, close monitoring of his glucoses will be necessary. 4. The patient should follow through on his appointment (as I understand it one has already been made) with interventional radiology at [place] to biopsy one of his PET avid lesions. 5. He will then follow up here at [facility].
[2020-01-13 12:34] LABS: Basophils # (auto) 0.03 K/uL (0-0.2); Basophils % (auto) 0.4 %; Eosinophils # (auto) 0.21 K/uL (0-0.5); Hematocrit (blood only) 35.1 % (42-52); Hemoglobin 11.2 g/dL (14.0-18.0); Immature Granulocytes # (auto) 0.01 K/uL (0.00-0.02); Immature Granulocytes % (auto) 0.1 %; Lymphocytes # (auto) 0.79 K/uL (1.2-3.4); Lymphocytes % (auto) 11.4 %; Mean Corpuscular Hemoglobin 31.3 pg (25-34); Mean Platelet Volume 10.3 fL (7.4-10.4); Monocytes # (auto) 0.71 K/uL (0.11-0.59); Monocytes % (auto) 10.3 %; Neutrophils # (auto) 5.17 K/uL (1.4-6.5); Neutrophils % (auto) 74.8 %; Platelet Count 203 K/uL (130-400); RDW Coefficient of Variation 15.4 % (11.5-14.5); RDW Standard Deviation 55.6 fL (36.4-46.3); Red Blood Count 3.58 M/uL (4.7-6.1); White Blood Count 6.92 K/uL (4.8-10.8)
[2020-01-13 12:44] LABS: Mean Corpuscular Hgb Conc 31.9 g/dL (32-36)
[2020-01-13 12:52] LABS: BUN Creatinine Ratio 16.2 (10-20); Calcium 8.5 mg/dl (8.5-10.1); Creatinine Clr Calc Pharmacy 20.4 ml/min; Est GFR (African American) 22.4; Est GFR (Non-African American) 19.4; Potassium 4.3 mmol/L (3.5-5.1)
[2020-01-13] MEDS ORDERED: predniSONE 20 MG TAB PO ONE (16:15)
[2020-01-13] MEDS ORDERED: INSULIN HUMAN NPH SC ONE (16:30)
[2020-01-13] MEDS: AMLODIPINE BESYLATE 5 MG TAB PO SCH (17:59)
[2020-01-13] MEDS: ROSUVASTATIN CALCIUM 20 MG TAB PO SCH (17:59)
[2020-01-13] MEDS: METOPROLOL SUCC 50MG EXT REL TAB PO SCH (19:22)
--- NOTE | 2020-01-13 20:10 | History & Physical Bridge Note ---
Date of Service January 13, 2020 History & Physical Bridge Note I have examined the patient, reviewed the History & Physical and in the interval since the performance of the History & Physical I have noted the following changes of clinical significance: patient feeling better this morning appreciate oncology and urology consults will start Prednisone for possible radiation cystitis plan for cystoscopy tomorrow to look for active bleeding that could be cauterized for the Prednisone, he is diabetic, so we will add NPH insulin 20 units at the same time as Prednisone check labs in the AM discharge will depend on cystoscopy results and recommendations from urology
[2020-01-14] MEDS ORDERED: Nursing to Pharmacy Communication SCH ×2 (00:45→11:45)
[2020-01-14] MEDS: GLUCOSE 40% GEL 15 GM TUBE PO PRN ×3 (00:55→10:14)
--- NOTE | 2020-01-14 05:13 | Billing Data ---
Date of Service January 14, 2020 Coding Level of Care Code 06830 Initial Inpt Care Lvl 3
[2020-01-14] MEDS: LEVOTHYROXINE SODIUM 100 MCG TABLET PO SCH (05:28)
[2020-01-14] MEDS ORDERED: INSULIN ASPART 100 UNITS/ML 3 ML PEN SC SCH (06:00)
[2020-01-14] MEDS: SODIUM CHLORIDE 0.9% 1000ML 1,000 ML IV SCH (07:11)
[2020-01-14] MEDS: cefTRIAXone SODIUM 1,000 MG in DEXTROSE 5% 50 ML IV SCH (07:56)
[2020-01-14] MEDS: VALSARTAN 80 MG TAB PO SCH (08:05)
[2020-01-14] MEDS: allopurinoL 300 MG TAB PO SCH (08:05)
[2020-01-14] MEDS ORDERED: INSULIN HUMAN NPH SC SCH (09:00)
[2020-01-14] MEDS ORDERED: predniSONE 20 MG TAB PO SCH (09:00)
[2020-01-14] MEDS: INSULIN GLARGINE SOLOSTAR 100 UNITS/ML 3 ML PEN SC SCH ×2 (09:57→21:08)
[2020-01-14 10:18] LABS: Hematocrit (blood only) 30.2 % (42-52); Mean Corpuscular Hemoglobin 31.8 pg (25-34); Mean Corpuscular Hgb Conc 33.1 g/dL (32-36); Mean Corpuscular Volume 96.2 fL (80-100); Mean Platelet Volume 10.6 fL (7.4-10.4); Platelet Count 198 K/uL (130-400); RDW Coefficient of Variation 15.3 % (11.5-14.5); RDW Standard Deviation 53.4 fL (36.4-46.3); Red Blood Count 3.14 M/uL (4.7-6.1); White Blood Count 8.54 K/uL (4.8-10.8)
[2020-01-14 10:52] LABS: Folate (Folic Acid) 10.39 ng/ml (>5.38)
[2020-01-14 11:02] LABS: BUN Creatinine Ratio 16.8 (10-20); Calcium 8.6 mg/dl (8.5-10.1); Creatinine Clr Calc Pharmacy 22.8 ml/min; Est GFR (African American) 25.7; Est GFR (Non-African American) 22.1; Ferritin 106.6 ng/ml (8-388); Magnesium 1.9 mg/dl (1.8-2.4); Potassium 3.8 mmol/L (3.5-5.1)
[2020-01-14] MEDS ORDERED: D5W AND 1/2NSS 1,000 ML IV SCH (11:15)
[2020-01-14] MEDS: INSULIN ASPART 100 UNITS/ML 3 ML PEN SC SCH ×3 (13:11→21:09)
--- NOTE | 2020-01-14 14:11 | Urology Progress Note ---
Date of Service January 14, 2020 Assessment & Plan (1) Gross hematuria: Patient was flushed after found to be in clot retention with CBI placed by ER. Patient had tolerated better after this. He is on minimal CBI at this point with good drainage and no clots. Urine is light pink with very low setting. Patient is tolerating without major problems or issues. Does have a history of considerable bleed with acute blood loss anemia. He is very anxious about this but overall is been doing well. He is also frustrated and concerned about his prednisone causing issues especially with his blood sugars. Discussed different options and concerns. Plan will be to continue may need to consider tapering but will allow medicine to decide further management. Patient is a longtime patient of Dr. Awan. We will plan to continue to monitor. We will plan for n.p.o. after midnight tonight with plans to intervene if patient is not cleared completely by tomorrow. Otherwise we will continue CBI with plans to titrate down clear. Flush if needed for clot removal Admission and Anticipated Discharge Date Admission Date: January 13, 2020 Subjective Patient admitted with clot retention and hematuria with history of bladder cancer with recent scope. Patient has had severe bleed and hematuria in the past. He currently has a catheter in place on CBI which is running at a minimal rate with a light pink urine. No major clots or issues. Had considerable issue last night after catheter was placed where the catheter would not drain but was still having CBI running. This causes considerable distention and discomfort. Patient has since been doing well after getting flushed and large amount of clots removed. Has not had considerable problems or issues. Patient is afebrile. H supportive therapy with with oral medications, IV medications, IV fluids, and oral intake. Is doing better without considerable increase in pain or major issues. Has not developed severe vomiting or other issues. Has not experienced fever or chills. Has been tolerating oral medications. Is tolerating fluids. Has noticed some frequency and urgency. Has not had severe pain in the back and flank. Does have occasional burning and irritation. No severe episodes or major changes. Patient is very interested in starting back to a diet. He has multiple questions related to his care. Patient is very frustrated with the prednisone which is caused some issues symptoms side effects and has increased his blood sugar which is caused some concern and anxiety. Review of Systems Review of Systems: All systems reviewed & are unremarkable except as noted in HPI & below Physical Exam Physical Exam: General: Alert in no acute distress. HEENT: Normocephalic Atraumatic. Inspection normal. Cranial Nerves 2-12 Grossly intact. Normal inspection of face. Normal inspection of neck. Psychologic: Normal affect. Anxious Respiratory: Nonlabored. No use of accessory muscles. No tachypnea or dyspnea. Cardiovascular: No tachycardia Skin: [place] and Dry. No rashes or visible lesions. Extremities/Lymphatics: No edema Abdomen: Soft Non-distended. No rebound or guarding. : Rosa in place draining light pink urine Results & Data ([facility]) Vital Signs (Past 12 Hours) Vital Signs Temp Pulse Resp BP Pulse Ox 01/14/20 07:07 36.8 C 84 16 168/93 H 95 PG Care Time/CCT Total # of Minutes Spent Total Time Spent with Patient: Total time spent is greater than 50% in coordination of care (as documented) at patient's floor/unit and/or counseling patient: Coding Level of Care Code 09873 Subseq Hosp Care Lvl 3 Diagnoses Gross hematuria R31.0
[2020-01-14] MEDS: AMLODIPINE BESYLATE 5 MG TAB PO SCH (17:15)
[2020-01-14] MEDS: ROSUVASTATIN CALCIUM 20 MG TAB PO SCH (17:16)
--- NOTE | 2020-01-14 18:05 | Hospitalist Progress Note ---
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 continue CBI. appreciate Dr Piper consultation. NPO after MN for potential cystoscopy tomorrow if hematuria persists. CBC in am. (2) Malignant neoplasm of lateral wall of bladder: s/p chemoradiation. now w/ radiation cystitis. (3) Radiation cystitis: ongoing. cont CBI. daily CBC. urology following - potential cystoscopy tomorrow for intervention if bleeding persists. placed on prednisone for such by heme/onc - will wean this. (4) Acute blood loss anemia: 2nd to radiation cystitis. cbc in am. checked b12/folate - b12 is low-normal & thus will supplement. MCV on cbc is high 90s despite blood loss suggesting mixed anemic picture. (5) Hypoglycemia: 2nd to NPO status in face of lantus and NPH dextrose infusion -- resolved his hypoglycemia; fluids d/c (6) Hypothyroidism: TSH 12/2019 wnl cont synthroid (7) Hyperlipidemia: cont statin (8) Diabetes mellitus: likely will not need NPH since we are weaning steroids cont lantus-novolog (9) Benign prostatic hyperplasia: ortiz in place (10) Benign essential hypertension: uncontrolled increase norvasc to 2.5mg BID cont ARB cautiously in face of CKD cont metoprolol xl (11) Chronic kidney disease, stage IV (severe): baseline Cr about 2.7 to 3/3.1 daily BMP while hospitalized follows with Dr Jose VILLALOBOS Nephrology (12) DVT prophylaxis: SCDs chemical means contraindicated in face of active urinary tract bleeding Admission and Anticipated Discharge Date Admission Date: January 13, 2020 Subjective patient with minimal lower abdominal / suprapubic discomfort. gross hematuria has been waxing/waning with CBI. no dyspnea. no chest pain. eating ok. he is frustrated by the hematuria. he is adamant that Dr Awan be the surgeon to intervene if needed. Review of Systems Constitutional: no fever, no chills, no fatigue and no anorexia Respiratory: no cough and no dyspnea Cardiovascular: no chest pain Gastrointestinal: no nausea and no vomiting Physical Exam Constitutional: well developed and well nourished; no acute distress and no altered mental status ENMT: external ear and nose normal, oropharynx normal Respiratory: normal respiratory effort, lungs clear to auscultation Cardiovascular: Rate/Rhythm: regular rate and regular rhythm Heart Sounds: normal S1 and normal S2; no murmur Vessels: posterior tibial pulses present and dorsalis pedis pulses present; no JVD Extremities: no edema Gastrointestinal (Abdomen): Inspection/Auscultation: abdomen not distended Percussion/Palpation: + abdomen tender (suprapubic ); no hepatosplenomegaly Skin: + pallor Psychiatric: A+Ox3, euthymic affect Results & Data Results & Data ([facility]) Vital Signs (Past 12 Hours) Vital Signs Temp Pulse Resp BP Pulse Ox 01/14/20 17:20 166/80 H 01/14/20 15:43 36.7 C 95 H 18 195/84 H 97 01/14/20 07:07 36.8 C 84 16 168/93 H 95 Laboratory Results Laboratory Results - last 24 hr 01/13/20 01/14/20 01/14/20 20:26 00:47 00:51 WBC RBC Hgb Hct MCV MCH MCHC RDW Std Deviation RDW Coeff of Josie Plt Count MPV Sodium Potassium Chloride Carbon Dioxide Anion Gap BUN Creatinine Est Cr Clr Drug Dosing Est GFR ( Amer) Est GFR (Non-Af Amer) BUN/Creatinine Ratio Glucose POC Glucose 131 H 63 L* 74 Calcium Magnesium Ferritin Vitamin B12 Folate 01/14/20 01/14/20 01/14/20 01:15 05:50 05:53 WBC RBC Hgb Hct MCV MCH MCHC RDW Std Deviation RDW Coeff of Josie Plt Count MPV Sodium Potassium Chloride Carbon Dioxide Anion Gap BUN Creatinine Est Cr Clr Drug Dosing Est GFR ( Amer) Est GFR (Non-Af Amer) BUN/Creatinine Ratio Glucose POC Glucose 95 68 L* 70 Calcium Magnesium Ferritin Vitamin B12 Folate 01/14/20 01/14/20 01/14/20 06:08 06:12 09:59 WBC 8.54 RBC 3.14 L Hgb 10.0 L Hct 30.2 L MCV 96.2 MCH 31.8 MCHC 33.1 RDW Std Deviation 53.4 H RDW Coeff of Josie 15.3 H Plt Count 198 MPV 10.6 H Sodium Potassium Chloride Carbon Dioxide Anion Gap BUN Creatinine Est Cr Clr Drug Dosing Est GFR ( Amer) Est GFR (Non-Af Amer) BUN/Creatinine Ratio Glucose POC Glucose 63 L* 71 Calcium Magnesium Ferritin Vitamin B12 Folate 01/14/20 01/14/20 01/14/20 09:59 09:59 10:00 WBC RBC Hgb Hct MCV MCH MCHC RDW Std Deviation RDW Coeff of Josie Plt Count MPV Sodium 147 H Potassium 3.8 Chloride 117 H Carbon Dioxide 24 Anion Gap 6.0 BUN 46 H Creatinine 2.74 H D Est Cr Clr Drug Dosing 22.8 Est GFR ( Amer) 25.7 Est GFR (Non-Af Amer) 22.1 BUN/Creatinine Ratio 16.8 Glucose 52 L* POC Glucose 60 L* Calcium 8.6 Magnesium 1.9 Ferritin 106.6 Vitamin B12 339 Folate 10.39 01/14/20 01/14/20 01/14/20 10:01 10:31 11:57 WBC RBC Hgb Hct MCV MCH MCHC RDW Std Deviation RDW Coeff of Josie Plt Count MPV Sodium Potassium Chloride Carbon Dioxide Anion Gap BUN Creatinine Est Cr Clr Drug Dosing Est GFR ( Amer) Est GFR (Non-Af Amer) BUN/Creatinine Ratio Glucose POC Glucose 66 L* 78 104 H Calcium Magnesium Ferritin Vitamin B12 Folate 01/14/20 17:14 WBC RBC Hgb Hct MCV MCH MCHC RDW Std Deviation RDW Coeff of Josie Plt Count MPV Sodium Potassium Chloride Carbon Dioxide Anion Gap BUN Creatinine Est Cr Clr Drug Dosing Est GFR ( Amer) Est GFR (Non-Af Amer) BUN/Creatinine Ratio Glucose POC Glucose 275 H Calcium Magnesium Ferritin Vitamin B12 Folate PG Care Time/CCT Total # of Minutes Spent Total Time Spent with Patient: Total time spent is greater than 50% in coordination of care (as documented) at patient's floor/unit and/or counseling patient: Coding Level of Care Code 68515 Subseq Hosp Care Lvl 3 Diagnoses Gross hematuria R31.0 Malignant neoplasm of lateral wall of bladder C67.2 Radiation cystitis N30.40 Acute blood loss anemia D62 Hypoglycemia E16.2 Hypothyroidism E03.9 Hypothyroidism type: acquired Hyperlipidemia E78.2 Hyperlipidemia type: mixed hyperlipidemia Diabetes mellitus E11.69 Diabetes mellitus type: type 2 Diabetes mellitus detention insulin use: without training development director use Diabetes mellitus complication status: with other specified complication Benign prostatic hyperplasia N40.1; R33.8 Lower urinary tract symptom presence: symptoms present Lower urinary tract symptom detail: urinary retention Benign essential hypertension I10 Chronic kidney disease, stage IV (severe) N18.4 DVT prophylaxis Z29.9 (1) Hypothyroidism Hypothyroidism type: acquired Qualified Code(s): E03.9 - Hypothyroidism, unspecified (2) Hyperlipidemia Hyperlipidemia type: mixed hyperlipidemia Qualified Code(s): E78.2 - Mixed hyperlipidemia (3) Diabetes mellitus Diabetes mellitus type: type 2 Diabetes mellitus training development director insulin use: without detention use Diabetes mellitus complication status: with other specified complication Qualified Code(s): E11.69 - Type 2 diabetes mellitus with other specified complication (4) Benign prostatic hyperplasia Lower urinary tract symptom presence: symptoms present Lower urinary tract symptom detail: urinary retention Qualified Code(s): N40.1 - Benign prostatic hyperplasia with lower urinary tract symptoms; R33.8 - Other retention of urine
[2020-01-14] MEDS: METOPROLOL SUCC 50MG EXT REL TAB PO SCH (21:11)
[2020-01-15] MEDS: HEPARIN 100 UNIT/ML 5ML FLUSH FLUSH PRN ×2 (05:45→22:02)
[2020-01-15 06:10] LABS: Hematocrit (blood only) 29.3 % (42-52); Hemoglobin 9.6 g/dL (14.0-18.0); Mean Corpuscular Hemoglobin 31.5 pg (25-34); Mean Corpuscular Hgb Conc 32.8 g/dL (32-36); Mean Corpuscular Volume 96.1 fL (80-100); Mean Platelet Volume 10.8 fL (7.4-10.4); Platelet Count 192 K/uL (130-400); RDW Coefficient of Variation 15.3 % (11.5-14.5); RDW Standard Deviation 53.3 fL (36.4-46.3); Red Blood Count 3.05 M/uL (4.7-6.1); White Blood Count 9.98 K/uL (4.8-10.8)
[2020-01-15] MEDS: LEVOTHYROXINE SODIUM 100 MCG TABLET PO SCH (06:22)
[2020-01-15] MEDS ORDERED: INSULIN ASPART 100 UNITS/ML 3 ML PEN SC SCH (06:30)
[2020-01-15] MEDS ORDERED: Nursing to Pharmacy Communication SCH ×2 (06:30→11:15)
[2020-01-15 06:47] LABS: BUN Creatinine Ratio 17.2 (10-20); Calcium 8.3 mg/dl (8.5-10.1); Creatinine Clr Calc Pharmacy 21.7 ml/min; Est GFR (African American) 24.2; Est GFR (Non-African American) 20.8; Potassium 3.6 mmol/L (3.5-5.1)
[2020-01-15] MEDS: AMLODIPINE BESYLATE 5 MG TAB PO SCH ×2 (09:02→21:30)
[2020-01-15] MEDS: CYANOCOBALAMIN 500 MCG TABLET (VITAMIN B-12) PO SCH (09:02)
[2020-01-15] MEDS: predniSONE 20 MG TAB PO SCH (09:02)
[2020-01-15] MEDS: allopurinoL 300 MG TAB PO SCH (09:02)
[2020-01-15] MEDS: VALSARTAN 80 MG TAB PO SCH (09:03)
[2020-01-15] MEDS: cefTRIAXone SODIUM 1,000 MG in DEXTROSE 5% 50 ML IV SCH (09:03)
[2020-01-15] MEDS: INSULIN GLARGINE SOLOSTAR 100 UNITS/ML 3 ML PEN SC SCH ×2 (10:20→21:32)
--- NOTE | 2020-01-15 10:20 | Urology Progress Note ---
Date of Service January 15, 2020 Assessment & Plan (1) Malignant neoplasm of lateral wall of bladder: Suspected metastatic bladder cancer, status post radiation to the bladder with refractory radiation cystitis Current bleeding is under control, however I have high suspicion that he will have recurrence I have suggested that we use alum irrigation now with the hope of limiting the likelihood of repeat bleeds in the near future likely will need at least 48hrs of treatment He is awaiting oncology evaluation at [facility] (adrenal lesions and bone lesions (not PET avid) Advance diet now Admission and Anticipated Discharge Date Admission Date: January 13, 2020 Subjective [id number] Patient admitted over the weekend with hematuria and retention Has been on continuous bladder irrigation for 3 days A long history of radiation cystitis secondary to substantial bladder cancer which was treated with primary radiation Most recent imaging (PET) showing PET avid lesions in adrenals - other sclerotic lesions in the bone did not prove to be PET avid - leaving some uncertaintly about his exact disease state at present. Pending eval with oncology at [facility] From an acute standpoint he is progressing His CBI is off at present and his urine is relatively clear I have fully anticipate that he will bleed again given his history, and have suggested we pursue alum irrigation now with the hope of preventing a repeat episode of bleeding in the near future Physical Exam Physical Exam: Urine relatively clear in the tubing, clears immediately when opening CBI Constitutional: well developed and well nourished Respiratory: no respiratory distress Cardiovascular: Extremities: no pedal edema Gastrointestinal (Abdomen): Inspection/Auscultation: abdomen normal to inspection Results & Data ([facility]) Vital Signs (Past 12 Hours) Vital Signs Temp Pulse Resp BP Pulse Ox 01/15/20 07:57 36.8 C 73 17 164/84 H 94 01/14/20 23:08 36.4 C L 76 15 156/81 H 95 PG Care Time/CCT Total # of Minutes Spent Total Time Spent with Patient: Total time spent is greater than 50% in coordination of care (as documented) at patient's floor/unit and/or counseling patient: Coding Level of Care Code 59899 Subseq Hosp Care Lvl 2 Diagnoses Malignant neoplasm of lateral wall of bladder C67.2
[2020-01-15] MEDS: AMMONIUM ALUM 30 GM in SODIUM CHLORIDE 0.9% IRRIG 3,000 ML IR SCH ×3 (12:24→22:58)
[2020-01-15] MEDS: INSULIN ASPART 100 UNITS/ML 3 ML PEN SC SCH ×3 (12:33→21:33)
[2020-01-15] MEDS ORDERED: OXYBUTYNIN CHLORIDE 5 MG TAB PO STA (18:33)
[2020-01-15] MEDS: SENNA 8.6 MG TAB PO SCH (18:42)
[2020-01-15] MEDS: HYDROCODONE/ACETAMOPHEN 5/325MG TAB PO PRN (18:43)
[2020-01-15] MEDS: POLYETHYLENE (MIRALAX) 17 GM PACK PO SCH (18:43)
[2020-01-15] MEDS: ROSUVASTATIN CALCIUM 20 MG TAB PO SCH (18:43)
[2020-01-15] MEDS: METOPROLOL SUCC 50MG EXT REL TAB PO SCH (21:31)
--- NOTE | 2020-01-15 21:46 | Hospitalist Progress Note ---
Date of Service January 15, 2020 Assessment & Plan (1) Radiation cystitis: ongoing. cont CBI. Alum infusion added by Dr Awan today to promote cessation of bleeding. 48-hour infusion of Alum advised by Dr Awan. daily CBC. potential cystoscopy next few days if bleeding worsens/persists. placed on prednisone for such by heme/onc - will stop after tomorrow AM's dose. (2) Gross hematuria: 2nd to radiation cystitis. continue CBI. appreciate [facility] urology assistance. as above. 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 now w/ radiation cystitis. see above. (4) Acute blood loss anemia: 2nd to radiation cystitis. H/H trending down but no indication for PRBCs at this time. checked b12/folate - b12 is low-normal & thus will supplement. cbc again in am. (5) Hypothyroidism: TSH 12/2019 wnl cont synthroid (6) Hyperlipidemia: cont statin (7) Diabetes mellitus: cont lantus-novolog controlled (8) Benign prostatic hyperplasia: ortiz in place (9) Benign essential hypertension: uncontrolled increase norvasc to 2.5mg BID today cont ARB cautiously in face of CKD cont metoprolol xl if needs additional control then norvasc 5mg BID (10) Chronic kidney disease, stage IV (severe): baseline Cr about 2.7 to 3/3.1 daily BMP while hospitalized - Cr today stable follows with Dr Garcia - [facility] Nephrology (11) DVT prophylaxis: SCDs chemical means contraindicated in face of active urinary tract bleeding significant other updated at bedside for constipation - senna with miralax Admission and Anticipated Discharge Date Admission Date: January 13, 2020 Subjective patient continues with bladder discomfort/spasms. also wants something for constipation. started on Alum infusion this am by Dr Awan to stop the hematuria. eating ok. denies dyspnea. Review of Systems Constitutional: no fever, no chills, no fatigue, no weakness and no anorexia Respiratory: + wheezing; no cough and no dyspnea Cardiovascular: no chest pain Gastrointestinal: as per Subjective / HPI; no nausea and no vomiting Physical Exam Constitutional: well developed and well nourished; no acute distress and no altered mental status ENMT: external ear and nose normal, oropharynx normal Respiratory: no respiratory distress Auscultation: + wheezes (end-exp - mild ); no crackles Cardiovascular: Rate/Rhythm: regular rate and regular rhythm Heart Sounds: normal S1 and normal S2; no murmur Vessels: posterior tibial pulses present and dorsalis pedis pulses present; no JVD Extremities: no edema Gastrointestinal (Abdomen): Inspection/Auscultation: + abdomen distended (suprapubic region ) Percussion/Palpation: + abdomen tender (suprapubic ); no guarding and no hepatosplenomegaly Skin: + pallor Psychiatric: A+Ox3, euthymic affect Results & Data Results & Data ([facility]) Vital Signs (Past 12 Hours) Vital Signs Temp Pulse Resp BP Pulse Ox 01/15/20 15:03 36.4 C L 77 18 164/88 H 94 Laboratory Results Laboratory Results - last 24 hr 01/15/20 01/15/20 01/15/20 05:50 05:50 05:50 WBC 9.98 RBC 3.05 L Hgb 9.6 L Hct 29.3 L MCV 96.1 MCH 31.5 MCHC 32.8 RDW Std Deviation 53.3 H RDW Coeff of Josie 15.3 H Plt Count 192 MPV 10.8 H Sodium 146 H Potassium 3.6 Chloride 115 H Carbon Dioxide 25 Anion Gap 6.0 BUN 50 H Creatinine 2.88 H Est Cr Clr Drug Dosing 21.7 Est GFR ( Amer) 24.2 Est GFR (Non-Af Amer) 20.8 BUN/Creatinine Ratio 17.2 Glucose 97 POC Glucose Calcium 8.3 L HIV 1&2 Ab/P24 Ag 4thGn Neg 01/15/20 01/15/20 01/15/20 06:22 09:19 11:33 WBC RBC Hgb Hct MCV MCH MCHC RDW Std Deviation RDW Coeff of Josie Plt Count MPV Sodium Potassium Chloride Carbon Dioxide Anion Gap BUN Creatinine Est Cr Clr Drug Dosing Est GFR ( Amer) Est GFR (Non-Af Amer) BUN/Creatinine Ratio Glucose POC Glucose 108 H 98 112 H Calcium HIV 1&2 Ab/P24 Ag 4thGn 01/15/20 01/15/20 17:05 20:24 WBC RBC Hgb Hct MCV MCH MCHC RDW Std Deviation RDW Coeff of Josie Plt Count MPV Sodium Potassium Chloride Carbon Dioxide Anion Gap BUN Creatinine Est Cr Clr Drug Dosing Est GFR ( Amer) Est GFR (Non-Af Amer) BUN/Creatinine Ratio Glucose POC Glucose 158 H 233 H Calcium HIV 1&2 Ab/P24 Ag 4thGn PG Care Time/CCT Total # of Minutes Spent Total Time Spent with Patient: Total time spent is greater than 50% in coordination of care (as documented) at patient's floor/unit and/or counseling p atient: Coding Level of Care Code 38240 Subseq Hosp Care Lvl 2 Diagnoses Radiation cystitis N30.40 Gross hematuria R31.0 Malignant neoplasm of lateral wall of bladder C67.2 Acute blood loss anemia D62 Hypothyroidism E03.9 Hypothyroidism type: acquired Hyperlipidemia E78.2 Hyperlipidemia type: mixed hyperlipidemia Diabetes mellitus E11.69 Diabetes mellitus type: type 2 Diabetes mellitus intermediate project manager insulin use: without intermediate project manager use Diabetes mellitus complication status: with other specified complication Benign prostatic hyperplasia N40.1; R33.8 Lower urinary tract symptom presence: symptoms present Lower urinary tract symptom detail: urinary retention Benign essential hypertension I10 Chronic kidney disease, stage IV (severe) N18.4 DVT prophylaxis Z29.9 (1) Hypothyroidism Hypothyroidism type: acquired Qualified Code(s): E03.9 - Hypothyroidism, unsp ecified (2) Hyperlipidemia Hyperlipidemia type: mixed hyperlipidemia Qualified Code(s): E78.2 - Mixed hyperlipidemia (3) Diabetes mellitus Diabetes mellitus type: type 2 Diabetes mellitus intermediate project manager insulin use: without fdc use Diabetes mellitus complication status: with other specified complication Qualified Code(s): E11.69 - Type 2 diabetes mellitus with other specified complication (4) Benign prostatic hyperplasia Lower urinary tract symptom presence: symptoms present Lower urinary tract symptom detail: urinary retention Qualified Code(s): N40.1 - Benign prostatic hyperplasia with lower urinary tract symptoms; R33.8 - Other retention of urine
[2020-01-15] MEDS ORDERED: MoRPHine SULFATE 2 MG/ML CARP IV STA (21:49)
[2020-01-16] MEDS: BELLADONNA/OPIUM SUPP 60 MG SUPP PR PRN (00:53)
[2020-01-16 01:57] LABS: Hematocrit (blood only) 30.1 % (42-52); Hemoglobin 9.8 g/dL (14.0-18.0); Mean Corpuscular Hemoglobin 31.4 pg (25-34); Mean Corpuscular Hgb Conc 32.6 g/dL (32-36); Mean Corpuscular Volume 96.5 fL (80-100); Mean Platelet Volume 10.7 fL (7.4-10.4); Platelet Count 220 K/uL (130-400); RDW Coefficient of Variation 15.4 % (11.5-14.5); RDW Standard Deviation 54.2 fL (36.4-46.3); Red Blood Count 3.12 M/uL (4.7-6.1); White Blood Count 12.13 K/uL (4.8-10.8)
[2020-01-16] MEDS: HYDROCODONE/ACETAMOPHEN 5/325MG TAB PO PRN ×3 (02:01→11:45)
[2020-01-16 02:17] LABS: Est GFR (African American) 18.3; Potassium 3.9 mmol/L (3.5-5.1)
[2020-01-16 02:18] LABS: BUN Creatinine Ratio 16.2 (10-20); Calcium 8.4 mg/dl (8.5-10.1); Creatinine Clr Calc Pharmacy 17.2 ml/min; Est GFR (Non-African American) 15.8
[2020-01-16] MEDS ORDERED: COUGH DROP (SUGAR FREE) LOZ 24 LOZ/1 BOX BUCCAL PRN (05:14)
[2020-01-16] MEDS ORDERED: MoRPHine SULFATE 2 MG/ML CARP IV STA (05:16)
[2020-01-16] MEDS: LEVOTHYROXINE SODIUM 100 MCG TABLET PO SCH (05:30)
[2020-01-16] MEDS: HEPARIN 100 UNIT/ML 5ML FLUSH FLUSH PRN ×4 (05:32→22:15)
[2020-01-16] MEDS: AMMONIUM ALUM 30 GM in SODIUM CHLORIDE 0.9% IRRIG 3,000 ML IR SCH ×4 (08:00→23:26)
--- NOTE | 2020-01-16 09:31 | Urology Progress Note ---
Date of Service January 16, 2020 Assessment & Plan (1) Hematuria: (2) Radiation cystitis: 74yo M with a hx of bladder cancer with gross hematuria related to radiation cystitis -Reviewed plan of care with Dr. Piper -Patient remains afebrile -Increased WBC and Cr - Will check a renal ultrasound today and continue to trend labs -Continue Alum infusion for at least 48 hours of treatment -Continue bladder scan and irrigation as needed -Oxybutynin 5mg as needed for bladder spasms/pain -Will continue to follow while inpatient Admission and Anticipated Discharge Date Admission Date: January 13, 2020 Subjective 74yo M with a hx of bladder cancer admitted on 01/12 with gross hematuria related to radiation cystitis Chart review: Afebrile BP 140/82, P66 WBC- 12.13 ( previously 9.98) HgB-9.8 (previously 9.6) Cr- 3.63 (previously 2.88) Bladder scan (01/14)- 21ml Patient alert, resting in bed Continues to have bladder discomfort/spams B&O Supp given overnight Denies fevers or chills Tolerating PO diet without nausea or vomiting Ortiz catheter intact, draining blood-tinged urine with Alum irrigation solution infusing into [address] way ortiz catheter LBM 01/13 Anxious to go home Review of Systems Constitutional: as per Subjective / HPI Gastrointestinal: as per Subjective / HPI Genitourinary: + as per Subjective / HPI Psychiatric: as per Subjective / HPI Physical Exam Constitutional: well developed and well nourished; no acute distress Respiratory: normal respiratory effort and able to speak in complete sentences Gastrointestinal (Abdomen): Inspection/Auscultation: abdomen normal to inspection; abdomen not distended Skin: Warm and dry, normal color Neurologic: moves all extremities and awake; not confused Psychiatric: A+Ox3, euthymic affect Genitourinary: Ortiz catheter intact, draining blood-tinged urine Results & Data ([facility]) Vital Signs (Past 12 Hours) Vital Signs Temp Pulse Resp BP BP Pulse Ox 01/16/20 07:28 36.5 C 66 17 140/82 98 01/15/20 23:08 36.4 C L 81 18 174/87 H 92 01/15/20 21:30 99 H 163/94 H PG Care Time/CCT Total # of Minutes Spent Total Time Spent with Patient: Total time spent is greater than 50% in coordination of care (as documented) at patient's floor/unit and/or counseling patient: Coding Level of Care Code 11234 Subseq Hosp Care Lvl 2 Diagnoses Hematuria R31.0 Hematuria type: gross Radiation cystitis N30.40 (1) Hematuria Hematuria type: gross Qualified Code(s): R31.0 - Gross hematuria
[2020-01-16] MEDS: AMLODIPINE BESYLATE 5 MG TAB PO SCH ×2 (09:47→21:29)
[2020-01-16] MEDS: VALSARTAN 80 MG TAB PO SCH (09:47)
[2020-01-16] MEDS: POLYETHYLENE (MIRALAX) 17 GM PACK PO SCH (09:47)
[2020-01-16] MEDS: SENNA 8.6 MG TAB PO SCH (09:48)
[2020-01-16] MEDS: allopurinoL 300 MG TAB PO SCH (09:48)
[2020-01-16] MEDS: INSULIN GLARGINE SOLOSTAR 100 UNITS/ML 3 ML PEN SC SCH ×2 (09:48→21:27)
[2020-01-16] MEDS: CYANOCOBALAMIN 500 MCG TABLET (VITAMIN B-12) PO SCH (09:48)
[2020-01-16] MEDS: predniSONE 20 MG TAB PO SCH (09:48)
[2020-01-16] MEDS: INSULIN ASPART 100 UNITS/ML 3 ML PEN SC SCH ×4 (09:49→21:37)
[2020-01-16] MEDS: OXYBUTYNIN CHLORIDE 5 MG TAB PO PRN ×2 (11:43→22:39)
--- NOTE | 2020-01-16 14:51 | Ultrasound Report ---
EXAMINATION: RENAL ULTRASOUND CLINICAL HISTORY: Elevated creatinine COMPARISON STUDY: CT scan the abdomen and pelvis dated 12/24/2019 FINDINGS: The right kidney measures 9.4 cm. The left kidney measures 10.5 cm. There is no evidence o f hydronephrosis. There are multiple small bilateral renal cysts measuring up to 2 cm in diameter. T he renal cortices are somewhat echogenic suggesting chronic renal disease. There is mild renal cortic al thinning. Patient was catheterized the time of scanning. The bladder was empty. IMPRESSION : 1. Bilateral renal cysts 2. Increased renal cortical echogenicity consistent with medical renal disease 3. No evidence of hydronephrosis ACT 112: Negative or not required by law. Electronically signed by: Olu Wen M.D. 01/16/2020 2:50 PM
[2020-01-16] MEDS ORDERED: bisacodyL 10 MG SUPP PR STA (16:36)
[2020-01-16] MEDS: MoRPHine SULFATE 2 MG/ML CARP IV PRN ×2 (16:54→22:12)
[2020-01-16] MEDS: ROSUVASTATIN CALCIUM 20 MG TAB PO SCH (16:54)
--- NOTE | 2020-01-16 21:21 | Hospitalist Progress Note ---
Date of Service January 16, 2020 Assessment & Plan (1) Radiation cystitis: ongoing. cont CBI. cont Alum infusion added by Dr Awan yesterday. plan is for 48-hour infusion (end-date tomorrow). daily CBC. potential cystoscopy next few days if bleeding worsens/persists. placed on prednisone for such by heme/onc - stop prednisone after today's dose. appreciate urology assistance. treat bladder spasms with oxybutinin prn, morphine prn; treat the constipation as well. (2) Acute kidney injury: baseline Cr high 2's/low 3's. now 3.6. renal u/s noted - no hydronephrosis despite the issues with bladder. BMP in am. avoid nephrotoxic agents. hold ARB. avoid hypotension. (3) Chronic kidney disease, stage IV (severe): baseline Cr about 2.7 to 3.1 daily BMP while hospitalized follows with Dr Garcia - [facility] [facility] - may need to involve him in his care if Cr worsens (4) Constipation: severe likely due to narcotics, etc may need x-rays to r/o ileus in face of bladder issues cont senna cont miralax give dulcolax suppos x 1 now if no results then KUB x-ray, enema, etc (5) Gross hematuria: 2nd to radiation cystitis. continue CBI. appreciate [facility] urology assistance. as above. 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 now w/ radiation cystitis. see above. (7) Acute blood loss anemia: 2nd to radiation cystitis. H/H trending down but no indication for PRBCs at this time. checked b12/folate - b12 was low-normal & thus will supplement. cbc again in am for stability. consider Fe replacement if any worsening H/H. (8) Hypothyroidism: TSH 12/2019 wnl cont synthroid (9) Hyperlipidemia: cont statin (10) Diabetes mellitus: cont lantus-novolog controlled today control should improve even further w/ stopping of prednisone (11) Benign prostatic hyperplasia: ortiz in place (12) Benign essential hypertension: uncontrolled increased norvasc to 2.5mg BID hold ARB due to rising Cr cont metoprolol xl if needs additional control then norvasc 5mg BID (13) DVT prophylaxis: SCDs chemical means contraindicated in face of active urinary tract bleeding significant other updated at bedside again today Admission and Anticipated Discharge Date Admission Date: January 13, 2020 Subjective patient c/o severe spasms of his bladder today. norco not helping. oxybutinin not helping. morphine did help last night. urine is clearing (hematuria improved) w/ use of CBI w/ alum. lower abdominal pain persists. c/o severe constipation as well - had "3 small balls" last night only. Review of Systems Constitutional: no fever, no chills, no fatigue and no anorexia Respiratory: + cough; no dyspnea Cardiovascular: no chest pain Gastrointestinal: + abdominal pain and + constipation; no nausea and no vomiting Physical Exam Constitutional: well developed, well nourished and + acute distress (when he has bladder spasms (these last about 10 seconds)); no altered mental status ENMT: external ear and nose normal, oropharynx normal Respiratory: no respiratory distress Auscultation: + wheezes (end-exp - mild ); no crackles Cardiovascular: Rate/Rhythm: regular rate and regular rhythm Heart Sounds: normal S1 and normal S2; no murmur Vessels: posterior tibial pulses present and dorsalis pedis pulses present; no JVD Extremities: no edema Gastrointestinal (Abdomen): Inspection/Auscultation: + abdomen distended (generalized tday) Percussion/Palpation: + abdomen tender (suprapubic ); no guarding and no hepatosplenomegaly Skin: + pallor Psychiatric: A+Ox3, euthymic affect Genitourinary: urine in ortiz bag clear today Results & Data Results & Data ([facility]) Vital Signs (Past 12 Hours) Vital Signs Temp Pulse Resp BP Pulse Ox 01/16/20 15:27 36.9 C 73 16 126/79 95 Laboratory Results Laboratory Results - last 24 hr 01/16/20 01/16/20 01/16/20 01:45 01:45 07:56 WBC 12.13 H RBC 3.12 L Hgb 9.8 L Hct 30.1 L MCV 96.5 MCH 31.4 MCHC 32.6 RDW Std Deviation 54.2 H RDW Coeff of Josie 15.4 H Plt Count 220 MPV 10.7 H Sodium 143 Potassium 3.9 Chloride 112 H Carbon Dioxide 24 Anion Gap 7.0 BUN 59 H Creatinine 3.63 H D Est Cr Clr Drug Dosing 17.2 Est GFR ( Amer) 18.3 Est GFR (Non-Af Amer) 15.8 BUN/Creatinine Ratio 16.2 Glucose 160 H POC Glucose 119 H Calcium 8.4 L 01/16/20 01/16/20 01/16/20 11:51 17:23 21:09 WBC RBC Hgb Hct MCV MCH MCHC RDW Std Deviation RDW Coeff of Josie Plt Count MPV Sodium Potassium Chloride Carbon Dioxide Anion Gap BUN Creatinine Est Cr Clr Drug Dosing Est GFR ( Amer) Est GFR (Non-Af Amer) BUN/Creatinine Ratio Glucose POC Glucose 115 H 168 H 133 H Calcium PG Care Time/CCT Total # of Minutes Spent Total Time Spent with Patient: Total time spent is greater than 50% in coordination of care (as documented) at patient's floor/unit and/or counseling patient: Coding Level of Care Code 45353 Subseq Hosp Care Lvl 3 Diagnoses Radiation cystitis N30.40 Acute kidney injury N17.9 Chronic kidney disease, stage IV (severe) N18.4 Constipation K59.09 Constipation type: other constipation type Gross hematuria R31.0 Malignant neoplasm of lateral wall of bladder C67.2 Acute blood loss anemia D62 Hypothyroidism E03.9 Hypothyroidism type: acquired Hyperlipidemia E78.2 Hyperlipidemia type: mixed hyperlipidemia Diabetes mellitus E11.69 Diabetes mellitus complication status: with other specified complication Diabetes mellitus extermination supervisor insulin use: without extermination supervisor use Diabetes mellitus type: type 2 Benign prostatic hyperplasia N40.1; R33.8 Lower urinary tract symptom detail: urinary retention Lower urinary tract symptom presence: symptoms present Benign essential hypertension I10 DVT prophylaxis Z29.9 (1) Benign prostatic hyperplasia Lower urinary tract symptom detail: urinary retention Lower urinary tract symptom presence: symptoms present Qualified Code(s): N40.1 - Benign prostatic hyperplasia with lower urinary tract symptoms; R33.8 - Other retention of urine (2) Diabetes mellitus Diabetes mellitus complication status: with other specified complication Diabetes mellitus extermination supervisor insulin use: without extermination supervisor use Diabetes mellitus type: type 2 Qualified Code(s): E11.69 - Type 2 diabetes mellitus with other specified complication (3) Hyperlipidemia Hyperlipidemia type: mixed hyperlipidemia Qualified Code(s): E78.2 - Mixed hyperlipidemia (4) Hypothyroidism Hypothyroidism type: acquired Qualified Code(s): E03.9 - Hypothyroidism, unspecified (5) Constipation Constipation type: other constipation type Qualified Code(s): K59.09 - Other constipation
[2020-01-16] MEDS: METOPROLOL SUCC 50MG EXT REL TAB PO SCH (21:32)
[2020-01-16] MEDS: bisacodyL 5 MG TABEC PO PRN (21:36)
[2020-01-17] MEDS: bisacodyL 5 MG TABEC PO PRN (03:05)
[2020-01-17] MEDS: AMMONIUM ALUM 30 GM in SODIUM CHLORIDE 0.9% IRRIG 3,000 ML IR SCH ×4 (03:42→21:15)
[2020-01-17] MEDS: BELLADONNA/OPIUM SUPP 60 MG SUPP PR PRN (03:51)
[2020-01-17] MEDS ORDERED: SOD PHOSPHATE/SOD BIPHOSPHATE ENEMA 132 ML BTL PR STA (04:01)
[2020-01-17] MEDS: OXYBUTYNIN CHLORIDE 5 MG TAB PO PRN ×2 (04:41→14:13)
[2020-01-17] MEDS: LEVOTHYROXINE SODIUM 100 MCG TABLET PO SCH (06:03)
[2020-01-17 06:25] LABS: Hematocrit (blood only) 30.1 % (42-52); Hemoglobin 9.9 g/dL (14.0-18.0); Mean Corpuscular Hemoglobin 31.5 pg (25-34); Mean Corpuscular Hgb Conc 32.9 g/dL (32-36); Mean Corpuscular Volume 95.9 fL (80-100); Mean Platelet Volume 11.2 fL (7.4-10.4); Platelet Count 224 K/uL (130-400); RDW Coefficient of Variation 15.7 % (11.5-14.5); RDW Standard Deviation 54.5 fL (36.4-46.3); Red Blood Count 3.14 M/uL (4.7-6.1); White Blood Count 15.42 K/uL (4.8-10.8)
[2020-01-17 07:23] LABS: BUN Creatinine Ratio 15.5 (10-20); Calcium 8.3 mg/dl (8.5-10.1); Creatinine Clr Calc Pharmacy 12.2 ml/min; Est GFR (African American) 12.1; Est GFR (Non-African American) 10.4; Potassium 4.2 mmol/L (3.5-5.1)
[2020-01-17] MEDS: MoRPHine SULFATE 2 MG/ML CARP IV PRN ×4 (08:02→22:25)
[2020-01-17] MEDS: AMLODIPINE BESYLATE 5 MG TAB PO SCH (08:13)
[2020-01-17] MEDS: VALSARTAN 80 MG TAB PO SCH (08:13)
[2020-01-17] MEDS: CYANOCOBALAMIN 500 MCG TABLET (VITAMIN B-12) PO SCH (08:14)
[2020-01-17] MEDS: SENNA 8.6 MG TAB PO SCH (08:14)
[2020-01-17] MEDS: allopurinoL 300 MG TAB PO SCH (08:15)
[2020-01-17] MEDS: POLYETHYLENE (MIRALAX) 17 GM PACK PO SCH (08:15)
[2020-01-17 08:38] LABS: Appearance Urine Clear (Clear); Bacteria Urine Automated Negative (Negative); Bilirubin Urine Negative (Negative); Blood Urine 3+ (Negative); Cast Urine Automated 0 /lpf (0-5); Color Urine Yellow; Glucose Urine UA Negative (Negative); Ketones Urine Negative (Negative); Leukocyte Esterase Urine 2+ (Negative); Nitrite Urine Negative (Negative); Protein Urine Trace (Negative); Urobilinogen Urine Negative (Negative)
[2020-01-17 08:58] LABS: RBC Urine Automated >30 /hpf (0-4)
[2020-01-17] MEDS: INSULIN ASPART 100 UNITS/ML 3 ML PEN SC SCH ×4 (09:23→20:58)
[2020-01-17] MEDS: INSULIN GLARGINE SOLOSTAR 100 UNITS/ML 3 ML PEN SC SCH (09:23)
[2020-01-17] MEDS ORDERED: LACTATED RINGER'S 500 ML IV ONE (09:59)
--- NOTE | 2020-01-17 10:13 | Nephrology Consultation ---
Date of Consultation January 17, 2020 Assessment & Plan (1) Acute kidney injury: Clinically consistent with post obstructive versus ATN. No obvious obstruction on US. Hematuria clearing. Valsartan has been appropriately held. Electrolytes are normal. Volume status acceptable. No emergent role for dialysis at this time. Rosuvastatin will be dose adjusted for kidney dysfunction (20 mg daily to 10 mg daily). CK added to AM labs. 500 ml LR bolus provided. Follow up labs ordered. If no evidence of renal recovery in next 1-2 days, may benefit from follow up cysto to completely exclude obstruction. (2) Chronic kidney disease, stage IV (severe): CKD IV A3. Baseline creatinine 2.6-3.2 mg/dL. Nephrotic range proteinuria. 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 I have followed Sawyer in the clinic, most recently September 2019. Sawyer has acknowledged the advanced nature of his kidney dysfunction and high calculated lifetime risk of requiring renal replacement therapy. He previously deferred formal pre- dialysis education. He has chronic anemia but has not required POLA therapy. Venofer infusions provided in the past. He has a history of hyperparathyroidism treated with calcitriol in the past. (3) Radiation cystitis: Treatment has included CBI + alum infusion as well as prednisone. Gross hematuria clearing. Urology following. No definitive plan for repeat cystoscopy at this time. (4) Gross hematuria: (5) Malignant neoplasm of lateral wall of bladder: As above. (6) Acute blood loss anemia: H/H stable. Tsat 31 and ferritin 106, acceptable. POLA therapy held pending monitoring. (7) Diabetes mellitus: (8) Benign prostatic hyperplasia: Rosa in place. (9) Benign essential hypertension: BP slightly low this AM, will monitor and adjust amlodipine and metoprolol as needed. Valsartan held. History of Present Illness Reason for Consultation: ALESSANDRA/CKD Requesting Physician: Kev Morales Attending Physician: Kev Morales History of Present Illness Mr. Sawyer Crews is a 74-year-old male with advanced chronic kidney disease. Creatinine at baseline has been ~2.6-3.2 mg/dL. Medial history is notable for muscle invasive bladder cancer and radiation cystitis. He thus received chemotherapy with mitomycin C and 5-FU. Unfortunately, he has continues to struggle with persistent hematuria. Thankfully, most recent cystoscopy did not show concerning tumor burden in the bladder. PET scan earlier this month demonstrated an avid aortopulmonary node as well as small areas in both adrenal glands. There are also a couple non-FDG avid bone lesions. Recent medical history includes gross hematuria requiring clot evacuation and fulguration. Sawyer underwent cystoscopy in the office with Dr. Awan on 01/06. He presented to the ER at [facility] on 01/12 with gross hematuria, lower pelvic pain, and urinary retention. He was admitted and CBI started with passage of clots. Aluminium irrigation then provided. Hematuria is clearing. No persistent clots at this time. Renal ultrasound obtained yesterday did not demonstrate any evidence of hydroureteronephrosis. Unfortunately, creatinine has been rising over the past few days (2.8 --> 3.6 --> 5.1 mg/dL). Thankfully, Sawyer feels well. He wants to go home. He denies any significant concerns at this time. Urine is clearing and he feels well. Appetite is good. No fevers or chills. Persistent bladder spasms and pain associated with the catheter but otherwise no complaints. Sawyer has CKD IV A3. He has had proteinuric kidney disease since at least 1989. Sawyer was initially evaluated in the nephrology clinic [place] [address] Laboy. In 2005, a kidney biopsy was obtained. At that time, proteinuria quantified at 3.7 grams/day. Biopsy demonstrated 12 glomeruli on LM (3 globally sclerosed and 2 with segmental sclerosis) with notable thickening of capillary loops and mesangial expansion. IFTA was mild. IF was negative. EM was limited due to sampling but demonstrated evidence of segmental sclerosis and fusion of foot processes consistent with FSGS. Sawyer has been managed with RAAS blockade and prospective monitoring. Despite having advanced CKD, kidney function had been relatively stable kidney function. He has had an episode of ALESSANDRA in the past related to partial obstruction from gross hematuria. He is treated for hypertension. CKD predominately consistent with secondary FSGS. Medical history is notable for diabetes mellitus II, hypertension, gout, bladder cancer, smoking history, and a history of kidney stones. He is being treated for hypothyroidism as well as BPH with some LUTS. Sawyer was diagnosed with T2 bladder cancer in December 2017. TURBT was performed on 01/16/18. The patient then received treatment with chemotherapy and radiation. Treatments started in February. IV infusions of mitomycin C and 5 FU. He tolerated treatments well. Sawyer was diagnosed with diabetes mellitus approximately 5 years ago. He does not have retinopathy or neuropathy. Sawyer underwent aneurysm repair in the past that was complicated by an acute CVA. He has residual visual filed defect. Sawyer has not been hypoalbuminemic. Blood pressure has been well controlled. Since admission, valsartan has been held and amlodipine increased for blood pressure control. Allergies Allergy/AdvReac Type Severity Reaction Status Date / Time atorvastatin [From Lipitor] AdvReac muscle Verified 01/13/20 02:20 aches RADIOACTIVE NUCLEAR STRESS Allergy Unknown "BP WENT Uncoded 01/13/20 02:20 TEST DYE OUT OF WHACK" Home Medications Home Medications Medication Instructions Recorded Confirmed Type albuterol sulfate 2 puff INHALATION Q6H PRN 02/27/19 01/13/20 History allopurinol 300 mg tablet 300 mg PO QAM #90 tab 03/16/19 01/13/20 Rx valsartan 160 mg tablet 160 mg PO QAM #90 tab 07/02/19 01/13/20 Rx metoprolol succinate 100 mg 100 mg PO QPM #90 tab 07/09/19 01/13/20 Rx tablet,extended release 24 hr aspirin 81 mg PO QAM 08/14/19 01/13/20 History lancets 33 gauge #100 ea 08/17/19 01/07/20 Rx dulaglutide 0.75 mg/0.5 mL 0.75 mg SQ WEEKLY #2 ml 09/19/19 01/13/20 Rx subcutaneous pen injector levothyroxine 100 mcg tablet 100 mcg PO DAILY #90 tab 09/19/19 01/13/20 Rx blood sugar diagnostic #100 ea 10/08/19 01/07/20 Rx amlodipine 2.5 mg tablet 2.5 mg PO DAILY@18 tab 10/22/19 01/13/20 History rosuvastatin 20 mg tablet 20 mg PO DAILY #90 tab 12/04/19 01/13/20 Rx Patient History Medical History Acid reflux Adenomatous polyp of colon Benign essential hypertension Benign prostatic hyperplasia CAD (coronary atherosclerotic disease) Cancer HX BLADDER CANCER SURGERY-CHEMO/RADIATION [facility] 2017 Chronic kidney disease F/U DR GARCIA Chronic obstructive pulmonary disease RARELY NEED TO USE RESCUE INHALER. INCREASED SHORTNESS OF BREATH CURRENTLY, BUT DUE TO ANEMIA. Diabetes mellitus Diabetes mellitus, type 2 Generalized osteoarthritis of multiple sites Gout Gross hematuria Hearing loss History of stroke without residual deficits OCCURRED DURING AAA REPAIR [facility] 5-6 YRS 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-NO ISSUES SINCE Hyperlipidemia Hypothyroidism Kidney stones Passed x1 Malignant neoplasm of lateral wall of bladder (01/16/18) Past myocardial infarction Port-A-Cath in place CURRENT FUNCTIONING A-PORT IN PLACE Secondary hyperparathyroidism Vitamin D deficiency Surgical History H/O arthroscopy of knee H/O colonoscopy History of biopsy of bladder History of cardiac cath NO STENTS (~10 YEARS AGO)-NO ISSUES SINCE History of carpal tunnel release RIGHT History of cataract surgery BILATERAL History of cystoscopy S/P AAA (abdominal aortic aneurysm) repair Status post biopsy of kidney Family History Grandfather , in his eighties No problems noted. Grandmother , young cause unknown No problems noted. Grandfather , in his eighties No problems noted. Grandmother , did have breast cancer but in her eighties of unknown cause No problems noted. Father , He in his sixties had had three strokes and high blood pressure He had had a kidney removed perhaps from cancer No problems noted. Mother , in her mid seventies complications from smoking No problems noted. Daughter Age: 48 No problems noted. Daughter Age: 45 No problems noted. Daughter Age: 40 No problems noted. Brother , at age 7 of a stroke No problems noted. Social History Smoking Status: Current every day smoker Cigarettes Per Day: 10; Second Hand Exposure: No; Hx Alcohol Use: No Hx Substance Use: No Preferred Language: Portuguese Communication Ability: Effective Visual Impairment: No Limitations Tile Sorter Required: No Beliefs That Will Affect Care: None Current Living Situation: Alone current occupational status: retired Feels Safe at Home: Yes Safety Concerns: Feels Safe At This Time Assistive Devices: None Review of Systems Review of Systems: All systems reviewed & are unremarkable except as noted in HPI & below Physical Exam 2 Constitutional: well developed; no acute distress and not edematous Eyes: + anicteric sclerae; no corneal abnormality ENMT: Mouth: no oral mucosal abnormality and oral mucous membranes not dry Neck: normal visual inspection and trachea midline Respiratory: normal respiratory effort Auscultation: lungs clear to auscultation bilaterally Cardiovascular: Rate/Rhythm: regular rate Heart Sounds: normal S1 and normal S2 Extremities: no edema R chest wall port-a-cath Gastrointestinal (Abdomen): Percussion/Palpation: abdomen soft; abdomen nonte nder Musculoskeletal: Extremities: no cyanosis and no clubbing Skin: normal turgor; no lesions Neurologic: Motor/Sensory: no tremor and no asterixis Psychiatric: Orientation: alert and oriented x 3 Genitourinary: urine catheter with slightly pink urine in bag Results & Data ([facility]) Vital Signs (Past 12 Hours) Vital Signs Temp Pulse Resp BP BP Pulse Ox 01/17/20 07:17 36.4 C L 91 H 18 93/49 L 93 01/16/20 23:24 36.4 C L 79 18 108/69 93 Laboratory Results Laboratory Results - last 24 hr 01/16/20 01/16/20 01/16/20 11:51 17:23 21:09 WBC RBC Hgb Hct MCV MCH MCHC RDW Std Deviation RDW Coeff of Josie Plt Count MPV Sodium Potassium Chloride Carbon Dioxide Anion Gap BUN Creatinine Est Cr Clr Drug Dosing Est GFR ( Amer) Est GFR (Non-Af Amer) BUN/Creatinine Ratio Glucose POC Glucose 115 H 168 H 133 H Calcium Total Creatine Kinase Urine Color Urine Appearance Urine pH Ur Specific [place] Urine Protein Urine Glucose (UA) Urine Ketones Urine Blood Urine Nitrite Urine Bilirubin Urine Urobilinogen Ur Leukocyte Esterase Urine WBC (Auto) Urine RBC (Auto) U Hyaline Cast (Auto) U Epithel Cells (Auto) Urine Bacteria (Auto) Urine Yeast 01/17/20 01/17/20 01/17/20 05:31 05:31 08:36 WBC 15.42 H RBC 3.14 L Hgb 9.9 L Hct 30.1 L MCV 95.9 MCH 31.5 MCHC 32.9 RDW Std Deviation 54.5 H RDW Coeff of Josie 15.7 H Plt Count 224 MPV 11.2 H Sodium 140 Potassium 4.2 Chloride 106 Carbon Dioxide 21 Anion Gap 13.0 H BUN 79 H Creatinine 5.11 H* D Est Cr Clr Drug Dosing 12.2 Est GFR ( Amer) 12.1 Est GFR (Non-Af Amer) 10.4 BUN/Creatinine Ratio 15.5 Glucose 70 POC Glucose 88 Calcium 8.3 L Total Creatine Kinase 211 Urine Color Urine Appearance Urine pH Ur Specific [place] Urine Protein Urine Glucose (UA) Urine Ketones Urine Blood Urine Nitrite Urine Bilirubin Urine Urobilinogen Ur Leukocyte Esterase Urine WBC (Auto) Urine RBC (Auto) U Hyaline Cast (Auto) U Epithel Cells (Auto) Urine Bacteria (Auto) Urine Yeast 01/17/20 Unknown WBC RBC Hgb Hct MCV MCH MCHC RDW Std Deviation RDW Coeff of Josie Plt Count MPV Sodium Potassium Chloride Carbon Dioxide Anion Gap BUN Creatinine Est Cr Clr Drug Dosing Est GFR ( Amer) Est GFR (Non-Af Amer) BUN/Creatinine Ratio Glucose POC Glucose Calcium Total Creatine Kinase Urine Color Yellow Urine Appearance Clear Urine pH 5.0 Ur Specific [place] 1.010 Urine Protein Trace H Urine Glucose (UA) Negative Urine Ketones Negative Urine Blood 3+ H Urine Nitrite Negative Urine Bilirubin Negative Urine Urobilinogen Negative Ur Leukocyte Esterase 2+ H Urine WBC (Auto) 1-5 Urine RBC (Auto) >30 H U Hyaline Cast (Auto) 0 U Epithel Cells (Auto) 5-10 H Urine Bacteria (Auto) Negative Urine Yeast Not Reportable Diagnostic Findings Renal US demonstrates cortical thinning, bilateral renal cysts, and increased renal cortical echogenicity consistent with medical renal disease PG Care Time/CCT Total # of Minutes Spent Total Time Spent with Patient: Total time spent is greater than 50% in coordination of care (as documented) at patient's floor/unit and/or counseling patient: Coding Level of Care Code 28302 Inpt Consult Level 5 Diagnoses Acute kidney injury N17.9 Chronic kidney disease, stage IV (severe) N18.4 Radiation cystitis N30.40 Gross hematuria R31.0 Malignant neoplasm of lateral wall of bladder C67.2 Acute blood loss anemia D62 Diabetes mellitus E11.69 Diabetes mellitus type: type 2 Diabetes mellitus assisted insulin use: without lobsterman use Diabetes mellitus complication status: with other specified complication Benign prostatic hyperplasia N40.1; R33.8 Lower urinary tract symptom presence: symptoms present Lower urinary tract symptom detail: urinary retention Benign essential hypertension I10 (1) Diabetes mellitus Diabetes mellitus type: type 2 Diabetes mellitus lobsterman insulin use: without assisted use Diabetes mellitus complication status: with other specified complication Qualified Code(s): E11.69 - Type 2 diabetes mellitus with other specified complication (2) Benign prostatic hyperplasia Lower urinary tract symptom presence: symptoms present Lower urinary tract symptom detail: urinary retention Qualified Code(s): N40.1 - Benign prostatic hyperplasia with lower urinary tract symptoms; R33.8 - Other retention of urine
[2020-01-17] MEDS: CARBOHYDRATES FOR HYPOGLYCEMIA PO PRN ×5 (11:57→18:12)
[2020-01-17] MEDS: HEPARIN 100 UNIT/ML 5ML FLUSH FLUSH PRN ×3 (12:32→16:36)
--- NOTE | 2020-01-17 12:35 | Urology Progress Note ---
Date of Service January 17, 2020 Assessment & Plan (1) Hematuria: Urine has largely cleared. Did have a considerable increase in his creatinine and is being followed by nephrology. Patient is extremely motivated to go home. He is not complaining of major issues. Is tolerating catheter. From urologic standpoint as long as patient remains clear and can tolerate catheter not necessarily need to be in the hospital. Did discuss his kidney function overall. He understands risks and is considering different options. Is going to speak further with hospitalist to discuss his options moving forward. We will continue to monitor. Call if any changes or issues Admission and Anticipated Discharge Date Admission Date: January 13, 2020 Subjective Patient with gross hematuria with history of radiation cystitis and bladder cancer. Was started in alum however his creatinine had increased. He has seen nephrology this morning. Patient is highly motivated to go home. He is ambulating. He is tolerating catheter. Has clear urine at this point without major problems or issues. Is not complaining of any major complaints or problems issues is mostly motivated to go home so he can rest as he states he is having pain discomfort from decreased activity and being in the hospital. No other major changes. No fevers or infection Review of Systems Review of Systems: All systems reviewed & are unremarkable except as noted in HPI & below Physical Exam Physical Exam: General: Alert in no acute distress. HEENT: Normocephalic Atraumatic. Inspection normal. Cranial Nerves 2-12 Grossly intact. Normal inspection of face. Normal inspection of neck. Psychologic: Normal affect. Respiratory: Nonlabored. No use of accessory muscles. No tachypnea or dyspnea. Cardiovascular: No tachycardia Skin: [place] and Dry. No rashes or visible lesions. Extremities/Lymphatics: No edema Abdomen: Soft Non-distended. No rebound or guarding. : Rosa in place draining clear urine without tinge or clots Results & Data ([facility]) Vital Signs (Past 12 Hours) Vital Signs Temp Pulse Resp BP Pulse Ox 01/17/20 07:17 36.4 C L 91 H 18 93/49 L 93 PG Care Time/CCT Total # of Minutes Spent Total Time Spent with Patient: Total time spent is greater than 50% in coordination of care (as documented) at patient's floor/unit and/or counseling patient: Coding Level of Care Code 44134 Subseq Hosp Care Lvl 3 Diagnoses Hematuria R31.0 Hematuria type: gross (1) Hematuria Hematuria type: gross Qualified Code(s): R31.0 - Gross hematuria
--- NOTE | 2020-01-17 16:03 | XRay Report ---
XR abdomen 2V w PA chest HISTORY: 74 years-old Male abd distension; ileus?? Generalized abdominal pain and distention with il eus COMPARISON: PET CT 01/07/2020 TECHNIQUE: PA view the chest with erect and supine views of the chest FINDINGS: Cardiac silhouette is enlarged. Unchanged positioning of the right IJ [id number] catheter. Calcifi ed plaque of the thoracic aortic arch. No pneumothorax, pleural effusion, airspace consolidation or o vert pulmonary edema. Minimal bibasilar atelectasis. Degenerative changes of the shoulders and spine. Mild convex right curvature of mid lumbar spine. No acute fracture. Bowel gas pattern is nonobstructi ve. There is moderate gaseous distention involving the left aspect of the transverse colon and stomac h. Moderate fecal retention of the right hemicolon. Numerous pelvic basin calcifications suggest phle boliths. Left nephrolithiasis without ureteral calculi identified. Nonobstructive bowel gas pattern w ithout pneumoperitoneum. Previously described skeletal lesions are not appreciated. IMPRESSION: 1. Cardiomegaly without acute process of the chest. 2. Nonobstructive bowel gas pattern without pneumoperitoneum. 3. Left nephrolithiasis. 4. Moderate fecal retention of the right hemicolon. ACT 112: Negative or not required by law. The above report was generated using voice recognition software. It may contain grammatical, syntax o r spelling errors. Electronically signed by: Rios Rosas M.D. 01/17/2020 4:02 PM
[2020-01-17] MEDS ORDERED: MAGNESIUM CITRATE 296 ML/BTL PO ONE (17:15)
[2020-01-17 17:18] LABS: BUN Creatinine Ratio 15.2 (10-20); Calcium 8.3 mg/dl (8.5-10.1); Est GFR (African American) 10.7; Est GFR (Non-African American) 9.2; Potassium 3.9 mmol/L (3.5-5.1)
[2020-01-17] MEDS ORDERED: STAT IV STA (17:52)
[2020-01-17] MEDS: ROSUVASTATIN CALCIUM 10 MG TAB PO SCH (17:56)
[2020-01-17] MEDS ORDERED: D5W AND NSS 1,000 ML IV SCH (18:00)
[2020-01-17] MEDS ORDERED: SODIUM BICARBONATE 8.4% 100 MEQ in DEXTROSE 5% 1,000 ML IV SCH (18:15)
--- NOTE | 2020-01-17 21:00 | Hospitalist Progress Note ---
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 gross hematuria improved with such; H/H stable last 2 days. Urology saw patient today - CBI and Alum d/c. 3-way ortiz to remain for now. prednisone weaned off (had been started by heme/onc earlier this week). appreciate urology assistance. treat bladder spasms with oxybutinin prn, morphine prn. (2) Hypoglycemia: now that prednisone has been d/c he likely will not need basal insulin. will d/c lantus completely. cont novolog for correction. if hypoglycemia persists then start Dextrose infusion. (3) Acute kidney injury: baseline Cr high 2's/low 3's. was 3.6 yesterday - now >5. renal u/s 01/16/20 - no hydronephrosis despite the issues with bladder. hold ARB. I formally consulted Dr Garcia today due to the ARF in setting of CKD stage 4. repeat u/a without casts. ALESSANDRA/ARF - 2nd to combination of intrinsic injury/ATN with obstructive issues ? concerning that Cr has worsened this rapidly in the last 48 hours. to start bicarbonate infusion in light of developing acidosis. mix bicarbonate in dextrose to maintain euglycemia. BMP am. (4) Chronic kidney disease, stage IV (severe): baseline Cr about 2.7 to 3.1 now with ALESSANDRA/ARF appreciate Dr Garcia's consultation and recs (5) Constipation: severe ongoing obtained abd x-rays today - moderate constipation, especially right-sided no ileus or SBO cont senna cont miralax mag citrate x 1 if not effective may need miralax "prep" or similar (6) Gross hematuria: 2nd to radiation cystitis. 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 now w/ radiation cystitis. see above. (8) Acute blood loss anemia: 2nd to radiation cystitis. CBC am. H/H have been acceptable last 2-3 days. (9) Hypothyroidism: TSH 12/2019 wnl cont synthroid (10) Hyperlipidemia: cont statin (11) Diabetes mellitus: now with hypoglycemia (had hyperglycemia with prednisone; but prednisone now discontinued) HOLD lantus dextrose infusion to maintain euglycemia (12) Benign prostatic hyperplasia: ortiz in place (13) Benign essential hypertension: BPs now low reduce amlodipine to 2.5mg daily (from BID dosing) HOLD ARB (14) DVT prophylaxis: SCDs chemical means contraindicated in face of active urinary tract bleeding significant other updated at bedside again today rising Cr is quite worrisome Admission and Anticipated Discharge Date Admission Date: January 13, 2020 Subjective patient feeling poorly today. having ongoing issues with constipation. did have BM this am but again it was scant amount (balls). gross hematuria much improved overnight and into this am. seen by urology - CBI with alum turned off this afternoon. ortiz to remain. he is upset that he will need the ortiz at discharge from hospital. patient ate good breakfast, but then wasn't hungry at lunch-time. Review of Systems Constitutional: no fever and no chills Respiratory: no cough and no dyspnea Cardiovascular: no chest pain Gastrointestinal: + abdominal pain (suprapubic ), + bloating, + constipation and + constant urge to pass stools; no nausea and no vomiting Genitourinary: + hematuria Physical Exam Constitutional: well developed and well nourished; no acute distress and no altered mental status ENMT: external ear and nose normal, oropharynx normal Respiratory: normal respiratory effort, lungs clear to auscultation no respiratory distress Auscultation: no crackles Cardiovascular: Rate/Rhythm: regular rate and regular rhythm Heart Sounds: normal S1 and normal S2; no murmur Vessels: posterior tibial pulses present and dorsalis pedis pulses present; no JVD Extremities: no edema Gastrointestinal (Abdomen): Inspection/Auscultation: + abdomen distended (generalized - worse than yesterday ) Percussion/Palpation: + abdomen tender (suprapubic ); no guarding and no hepatosplenomegaly Skin: + pallor Psychiatric: A+Ox3, euthymic affect Results & Data Results & Data ([facility]) Vital Signs (Past 12 Hours) Vital Signs Temp Pulse Resp BP Pulse Ox 01/17/20 20:07 36.6 C 83 16 114/67 96 01/17/20 16:21 36.8 C 77 16 123/74 98 Laboratory Results Laboratory Results - last 24 hr 01/16/20 01/17/20 01/17/20 21:09 05:31 05:31 WBC 15.42 H RBC 3.14 L Hgb 9.9 L Hct 30.1 L MCV 95.9 MCH 31.5 MCHC 32.9 RDW Std Deviation 54.5 H RDW Coeff of Josie 15.7 H Plt Count 224 MPV 11.2 H Sodium 140 Potassium 4.2 Chloride 106 Carbon Dioxide 21 Anion Gap 13.0 H BUN 79 H Creatinine 5.11 H* D Est Cr Clr Drug Dosing 12.2 Est GFR ( Amer) 12.1 Est GFR (Non-Af Amer) 10.4 BUN/Creatinine Ratio 15.5 Glucose 70 POC Glucose 133 H Calcium 8.3 L Total Creatine Kinase 211 Urine Color Urine Appearance Urine pH Ur Specific [place] Urine Protein Urine Glucose (UA) Urine Ketones Urine Blood Urine Nitrite Urine Bilirubin Urine Urobilinogen Ur Leukocyte Esterase Urine WBC (Auto) Urine RBC (Auto) U Hyaline Cast (Auto) U Epithel Cells (Auto) Urine Bacteria (Auto) Urine Yeast 01/17/20 01/17/20 01/17/20 08:36 11:57 12:16 WBC RBC Hgb Hct MCV MCH MCHC RDW Std Deviation RDW Coeff of Josie Plt Count MPV Sodium Potassium Chloride Carbon Dioxide Anion Gap BUN Creatinine Est Cr Clr Drug Dosing Est GFR ( Amer) Est GFR (Non-Af Amer) BUN/Creatinine Ratio Glucose POC Glucose 88 62 L* 66 L* Calcium Total Creatine Kinase Urine Color Urine Appearance Urine pH Ur Specific [place] Urine Protein Urine Glucose (UA) Urine Ketones Urine Blood Urine Nitrite Urine Bilirubin Urine Urobilinogen Ur Leukocyte Esterase Urine WBC (Auto) Urine RBC (Auto) U Hyaline Cast (Auto) U Epithel Cells (Auto) Urine Bacteria (Auto) Urine Yeast 01/17/20 01/17/20 01/17/20 12:31 16:32 17:20 WBC RBC Hgb Hct MCV MCH MCHC RDW Std Deviation RDW Coeff of Josie Plt Count MPV Sodium 139 Potassium 3.9 Chloride 107 Carbon Dioxide 19 L Anion Gap 13.0 H BUN 87 H Creatinine 5.66 H* D Est Cr Clr Drug Dosing 11.0 Est GFR ( Amer) 10.7 Est GFR (Non-Af Amer) 9.2 BUN/Creatinine Ratio 15.2 Glucose 50 L* POC Glucose 97 54 L* Calcium 8.3 L Total Creatine Kinase Urine Color Urine Appearance Urine pH Ur Specific [place] Urine Protein Urine Glucose (UA) Urine Ketones Urine Blood Urine Nitrite Urine Bilirubin Urine Urobilinogen Ur Leukocyte Esterase Urine WBC (Auto) Urine RBC (Auto) U Hyaline Cast (Auto) U Epithel Cells (Auto) Urine Bacteria (Auto) Urine Yeast 01/17/20 01/17/20 01/17/20 17:52 18:10 18:31 WBC RBC Hgb Hct MCV MCH MCHC RDW Std Deviation RDW Coeff of Josie Plt Count MPV Sodium Potassium Chloride Carbon Dioxide Anion Gap BUN Creatinine Est Cr Clr Drug Dosing Est GFR ( Amer) Est GFR (Non-Af Amer) BUN/Creatinine Ratio Glucose POC Glucose 68 L* 68 L* 80 Calcium Total Creatine Kinase Urine Color Urine Appearance Urine pH Ur Specific [place] Urine Protein Urine Glucose (UA) Urine Ketones Urine Blood Urine Nitrite Urine Bilirubin Urine Urobilinogen Ur Leukocyte Esterase Urine WBC (Auto) Urine RBC (Auto) U Hyaline Cast (Auto) U Epithel Cells (Auto) Urine Bacteria (Auto) Urine Yeast 01/17/20 01/17/20 20:49 Unknown WBC RBC Hgb Hct MCV MCH MCHC RDW Std Deviation RDW Coeff of Josie Plt Count MPV Sodium Potassium Chloride Carbon Dioxide Anion Gap BUN Creatinine Est Cr Clr Drug Dosing Est GFR ( Amer) Est GFR (Non-Af Amer) BUN/Creatinine Ratio Glucose POC Glucose 71 Calcium Total Creatine Kinase Urine Color Yellow Urine Appearance Clear Urine pH 5.0 Ur Specific [place] 1.010 Urine Protein Trace H Urine Glucose (UA) Negative Urine Ketones Negative Urine Blood 3+ H Urine Nitrite Negative Urine Bilirubin Negative Urine Urobilinogen Negative Ur Leukocyte Esterase 2+ H Urine WBC (Auto) 1-5 Urine RBC (Auto) >30 H U Hyaline Cast (Auto) 0 U Epithel Cells (Auto) 5-10 H Urine Bacteria (Auto) Negative Urine Yeast Not Reportable PG Care Time/CCT Total # of Minutes Spent Total Time Spent with Patient: Total time spent is greater than 50% in coordination of care (as documented) at patient's floor/unit and/or counseling patient: Coding Level of Care Code 71178 Subseq Hosp Care Lvl 3 Diagnoses Radiation cystitis N30.40 Hypoglycemia E16.2 Acute kidney injury N17.9 Chronic kidney disease, stage IV (severe) N18.4 Constipation K59.09 Constipation type: other constipation type Gross hematuria R31.0 Malignant neoplasm of lateral wall of bladder C67.2 Acute blood loss anemia D62 Hypothyroidism E03.9 Hypothyroidism type: acquired Hyperlipidemia E78.2 Hyperlipidemia type: mixed hyperlipidemia Diabetes mellitus E11.69 Diabetes mellitus type: type 2 Diabetes mellitus residential insulin use: without residential use Diabetes mellitus complication status: with other specified complication Benign prostatic hyperplasia N40.1; R33.8 Lower urinary tract symptom presence: symptoms present Lower urinary tract symptom detail: urinary retention Benign essential hypertension I10 DVT prophylaxis Z29.9 (1) Constipation Constipation type: other constipation type Qualified Code(s): K59.09 - Other constipation (2) Hypothyroidism Hypothyroidism type: acquired Qualified Code(s): E03.9 - Hypothyroidism, unspecified (3) Hyperlipidemia Hyperlipidemia type: mixed hyperlipidemia Qualified Code(s): E78.2 - Mixed hyperlipidemia (4) Diabetes mellitus Diabetes mellitus type: type 2 Diabetes mellitus machine long goods helper insulin use: without machine long goods helper use Diabetes mellitus complication status: with other specified complication Qualified Code(s): E11.69 - Type 2 diabetes mellitus with other specified complication (5) Benign prostatic hyperplasia Lower urinary tract symptom presence: symptoms present Lower urinary tract symptom detail: urinary retention Qualified Code(s): N40.1 - Benign prostatic hyperplasia with lower urinary tract symptoms; R33.8 - Other retention of urine
[2020-01-17] MEDS: METOPROLOL SUCC 50MG EXT REL TAB PO SCH (21:16)
[2020-01-17] MEDS: HYDROCODONE/ACETAMOPHEN 5/325MG TAB PO PRN (23:37)
[2020-01-18] MEDS: AMMONIUM ALUM 30 GM in SODIUM CHLORIDE 0.9% IRRIG 3,000 ML IR SCH (04:05)
[2020-01-18] MEDS: OXYBUTYNIN CHLORIDE 5 MG TAB PO PRN ×2 (04:09→11:36)
[2020-01-18] MEDS: LEVOTHYROXINE SODIUM 100 MCG TABLET PO SCH (05:37)
[2020-01-18 06:30] LABS: Hematocrit (blood only) 26.4 % (42-52); Hemoglobin 8.8 g/dL (14.0-18.0); Mean Corpuscular Hemoglobin 31.7 pg (25-34); Mean Corpuscular Hgb Conc 33.3 g/dL (32-36); Mean Platelet Volume 11.1 fL (7.4-10.4); Platelet Count 208 K/uL (130-400); RDW Coefficient of Variation 15.6 % (11.5-14.5); RDW Standard Deviation 53.9 fL (36.4-46.3); Red Blood Count 2.78 M/uL (4.7-6.1); White Blood Count 13.82 K/uL (4.8-10.8)
[2020-01-18 07:15] LABS: Albumin Level 2.9 gm/dl (3.4-5.0); BUN Creatinine Ratio 15.7 (10-20); Calcium 8.2 mg/dl (8.5-10.1); Creatinine Clr Calc Pharmacy 10.8 ml/min; Est GFR (African American) 10.4; Magnesium 2.2 mg/dl (1.8-2.4); Phosphorus 7.1 mg/dl (2.5-4.9); Potassium 3.9 mmol/L (3.5-5.1)
[2020-01-18] MEDS: CARBOHYDRATES FOR HYPOGLYCEMIA PO PRN (07:15)
[2020-01-18] MEDS: POLYETHYLENE (MIRALAX) 17 GM PACK PO SCH (07:55)
[2020-01-18] MEDS: allopurinoL 300 MG TAB PO SCH (07:56)
[2020-01-18] MEDS: CYANOCOBALAMIN 500 MCG TABLET (VITAMIN B-12) PO SCH (07:56)
[2020-01-18] MEDS: SENNA 8.6 MG TAB PO SCH (07:56)
[2020-01-18] MEDS: INSULIN ASPART 100 UNITS/ML 3 ML PEN SC SCH ×4 (08:22→22:39)
[2020-01-18] MEDS: DEXTROSE 10% IV SCH ×2 (08:29→22:47)
[2020-01-18] MEDS: SODIUM BICARBONATE IV SCH ×2 (08:29→22:47)
[2020-01-18] MEDS ORDERED: INSULIN GLARGINE SOLOSTAR 100 UNITS/ML 3 ML PEN SC SCH (09:00)
--- NOTE | 2020-01-18 10:29 | Urology Progress Note ---
Date of Service January 18, 2020 Assessment & Plan (1) Malignant neoplasm of lateral wall of bladder: radiation cystitis - bleeding seems to be well controlled now ALESSANDRA - much more concerning overall - plan for repeat imaging now (CT) to r/o obstruction - if his ALESSANDRA is felt to be obstructive yet there is no hydro on CT (no hydro on US earlier this week) - there is the possibility that fibrosis from the radiation maybe preventing upper tract dilation and hiding a true obstruction. In turn, consideration of nephrostomy tubes may be reasonable - I feel that stents would be very problematic for a variety of reasons - bleeding, low likelihood of success, etc. Admission and Anticipated Discharge Date Admission Date: January 13, 2020 Subjective Doing ok restarted CBI overnight relatively clear this AM Alum clamped when he was seen unfortunately, Cr continues to climb Review of Systems Review of Systems: All systems reviewed & are unremarkable except as noted in HPI & below Physical Exam Physical Exam: pacing the room catheter twisted around the iv pole urine mostly clear with some granular old clot Constitutional: well developed and well nourished Respiratory: no respiratory distress Cardiovascular: Extremities: no pedal edema Gastrointestinal (Abdomen): Inspection/Auscultation: abdomen normal to inspection Results & Data ([facility]) Vital Signs (Past 12 Hours) Vital Signs Temp Pulse Resp BP Pulse Ox 01/18/20 07:25 72 18 105/66 95 01/18/20 03:20 36.5 C 67 16 98/63 L 96 01/17/20 23:05 36.6 C 96 H 16 113/67 94 PG Care Time/CCT Total # of Minutes Spent Total Time Spent with Patient: Total time spent is greater than 50% in coordination of care (as documented) at patient's floor/unit and/or counseling patient: Coding Level of Care Code 92005 Subseq Hosp Care Lvl 2 Diagnoses Malignant neoplasm of lateral wall of bladder C67.2
--- NOTE | 2020-01-18 10:33 | Nephrology Progress Note ---
Date of Service January 18, 2020 Assessment & Plan (1) Acute kidney injury: Clinically consistent with post obstructive versus ATN. No obvious obstruction on US however. Hematuria persists with CBI clearing today. May require follow up cysto. Valsartan has been appropriately held. Electrolytes are normal. Volume status acceptable. No emergent role for dialysis at this time. I have discussed potential future indications with Sawyer in detail. Rosuvastatin dose reduced to 10 mg daily for kidney dysfunction. Medications are otherwise appropriately dosed for kidney function. Mild hyponatremia on hypotonic infusion. Once complete, I would switch mIVF to dextrose + isotonic balanced solution such as normosol. Follow up labs ordered for tomorrow. (2) Chronic kidney disease, stage IV (severe): CKD IV A3. Baseline creatinine 2.6-3.2 mg/dL. Nephrotic range proteinuria. 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 I have discussed the advanced nature of his kidney dysfunction and high lifetime risk of requiring renal replacement therapy. He previously deferred formal pre- dialysis education. He has chronic anemia but has not required POLA therapy. Venofer infusions provided in the past. Will provide a dose of Epogen 83786 units today. (3) Radiation cystitis: Treatment has included CBI + alum infusion as well as prednisone. Urology following. No definitive plan for repeat cystoscopy at this time. (4) Gross hematuria: (5) Malignant neoplasm of lateral wall of bladder: (6) Acute blood loss anemia: H/H stable. Tsat 31 and ferritin 106, acceptable. POLA therapy held pending monitoring. (7) Diabetes mellitus: (8) Benign prostatic hyperplasia: Rosa in place. (9) Benign essential hypertension: BP slightly low this AM, will monitor and adjust amlodipine and metoprolol as needed. Valsartan held. Admission and Anticipated Discharge Date Admission Date: January 13, 2020 Subjective No acute events overnight. CBI restarted overnight due to recurrent hematuria. Sawyer remains frustrated. Irritation from catheter noted. No fevers or chills. Constipated. Decreased appetite. Repeatedly told me that he thinks everything will work itself out if he can just go home. Hypoglycemia despite D10 infusion. Review of Systems Review of Systems: All systems reviewed & are unremarkable except as noted in HPI & below Physical Exam Constitutional: well developed; no acute distress and not edematous Eyes: + anicteric sclerae; no corneal abnormality ENMT: Mouth: no oral mucosal abnormality and oral mucous membranes not dry Neck: normal visual inspection and trachea midline Respiratory: normal respiratory effort Auscultation: lungs clear to auscultation bilaterally Cardiovascular: Rate/Rhythm: regular rate Heart Sounds: normal S1 and normal S2 Extremities: no edema Gastrointestinal (Abdomen): Percussion/Palpation: abdomen soft; abdomen nontender Musculoskeletal: Extremities: no cyanosis and no clubbing Skin: normal turgor; no lesions Neurologic: Motor/Sensory: no tremor and no asterixis Psychiatric: Orientation: alert and oriented x 3 Results & Data ([facility]) Vital Signs (Past 12 Hours) Vital Signs Temp Pulse Resp BP Pulse Ox 01/18/20 07:25 72 18 105/66 95 01/18/20 03:20 36.5 C 67 16 98/63 L 96 01/17/20 23:05 36.6 C 96 H 16 113/67 94 Laboratory Results Laboratory Results - last 24 hr 01/17/20 01/17/20 01/17/20 11:57 12:16 12:31 WBC RBC Hgb Hct MCV MCH MCHC RDW Std Deviation RDW Coeff of Josie Plt Count MPV Sodium Potassium Chloride Carbon Dioxide Anion Gap BUN Creatinine Est Cr Clr Drug Dosing Est GFR ( Amer) Est GFR (Non-Af Amer) BUN/Creatinine Ratio Glucose POC Glucose 62 L* 66 L* 97 Calcium Phosphorus Magnesium Albumin 01/17/20 01/17/20 01/17/20 16:32 17:20 17:52 WBC RBC Hgb Hct MCV MCH MCHC RDW Std Deviation RDW Coeff of Josie Plt Count MPV Sodium 139 Potassium 3.9 Chloride 107 Carbon Dioxide 19 L Anion Gap 13.0 H BUN 87 H Creatinine 5.66 H* D Est Cr Clr Drug Dosing 11.0 Est GFR ( Amer) 10.7 Est GFR (Non-Af Amer) 9.2 BUN/Creatinine Ratio 15.2 Glucose 50 L* POC Glucose 54 L* 68 L* Calcium 8.3 L Phosphorus Magnesium Albumin 01/17/20 01/17/20 01/17/20 18:10 18:31 20:49 WBC RBC Hgb Hct MCV MCH MCHC RDW Std Deviation RDW Coeff of Josie Plt Count MPV Sodium Potassium Chloride Carbon Dioxide Anion Gap BUN Creatinine Est Cr Clr Drug Dosing Est GFR ( Amer) Est GFR (Non-Af Amer) BUN/Creatinine Ratio Glucose POC Glucose 68 L* 80 71 Calcium Phosphorus Magnesium Albumin 01/18/20 01/18/20 01/18/20 05:23 05:23 07:48 WBC 13.82 H RBC 2.78 L Hgb 8.8 L Hct 26.4 L MCV 95.0 MCH 31.7 MCHC 33.3 RDW Std Deviation 53.9 H RDW Coeff of Josie 15.6 H Plt Count 208 MPV 11.1 H Sodium 135 L Potassium 3.9 Chloride 100 Carbon Dioxide 21 Anion Gap 14.0 H BUN 90 H Creatinine 5.78 H* Est Cr Clr Drug Dosing 10.8 Est GFR ( Amer) 10.4 Est GFR (Non-Af Amer) 9.0 BUN/Creatinine Ratio 15.7 Glucose 44 L* POC Glucose 52 L* Calcium 8.2 L Phosphorus 7.1 H Magnesium 2.2 Albumin 2.9 L 01/18/20 08:23 WBC RBC Hgb Hct MCV MCH MCHC RDW Std Deviation RDW Coeff of Josie Plt Count MPV Sodium Potassium Chloride Carbon Dioxide Anion Gap BUN Creatinine Est Cr Clr Drug Dosing Est GFR ( Amer) Est GFR (Non-Af Amer) BUN/Creatinine Ratio Glucose POC Glucose 64 L* Calcium Phosphorus Magnesium Albumin PG Care Time/CCT Total # of Minutes Spent Total Time Spent with Patient: Total time spent is greater than 50% in coordination of care (as documented) at patient's floor/unit and/or counseling patient: Coding Level of Care Code 28173 Subseq Hosp Care Lvl 3 Diagnoses Acute kidney injury N17.9 Chronic kidney disease, stage IV (severe) N18.4 Radiation cystitis N30.40 Gross hematuria R31.0 Malignant neoplasm of lateral wall of bladder C67.2 Acute blood loss anemia D62 Diabetes mellitus E11.69 Diabetes mellitus type: type 2 Diabetes mellitus retirement insulin use: without equipment operator intermodal yard use Diabetes mellitus complication status: with other specified complication Benign prostatic hyperplasia N40.1; R33.8 Lower urinary tract symptom presence: symptoms present Lower urinary tract symptom detail: urinary retention Benign essential hypertension I10 (1) Diabetes mellitus Diabetes mellitus type: type 2 Diabetes mellitus equipment operator intermodal yard insulin use: without equipment operator intermodal yard use Diabetes mellitus complication status: with other specified complication Qualified Code(s): E11.69 - Type 2 diabetes mellitus with other specified complication (2) Benign prostatic hyperplasia Lower urinary tract symptom presence: symptoms present Lower urinary tract symptom detail: urinary retention Qualified Code(s): N40.1 - Benign prostatic hyperplasia with lower urinary tract symptoms; R33.8 - Other retention of urine
--- NOTE | 2020-01-18 10:42 | CT Scan Report ---
CT SCAN OF THE ABDOMEN AND PELVIS WITHOUT CONTRAST CLINICAL HISTORY: Elevated Creatinine ABDOMINAL DISTENTION, GENERALIZED ABDOMINAL PAIN, HISTORY OF BL ADDER CARCINOMA. COMPARISON STUDY: 12/24/2019 TECHNIQUE: CT scan of the abdomen and pelvis was performed from the lung bases to the proximal femurs . Images are reviewed in the axial, sagittal, and coronal planes. IV contrast was not administered fo r this examination. A dose lowering technique was utilized adhering to the principles of ALARA. CT DOSE: 491.89 mGy.cm FINDINGS: Lower chest: The heart is enlarged. There are coronary artery calcifications. There is minor basilar atelectasis. There is trace pericardial fluid. Liver: The unenhanced liver is normal in size, contour, and attenuation. There is no intrahepatic magaly iary ductal dilatation. Gallbladder: Unremarkable. Spleen: Normal in size and attenuation. Pancreas: Unremarkable. Adrenal glands: There is a 3.5 cm left adrenal nodule, likely representing an adenoma. There is a 14 mm right adrenal nodule also likely represent an adenoma. Kidneys: There are renal vascular calcifications. In addition there is a 5 mm lower pole left renal c alculus. There are bilateral low-density renal masses which cannot be further characterized on this n oncontrast study but statistically represent cysts. There is no hydronephrosis. No ureteral calculi a re visualized. Bowel: There are no transition zones to indicate bowel obstruction. There is colonic diverticulosis. There is no evidence of acute diverticulitis. There are no findings to indicate acute appendicitis. Peritoneum: There is no intraperitoneal free air or abdominal ascites. Is a fat-containing umbilical hernia Vasculature: There is no evidence of abdominal aortic aneurysm. There are aortoiliac atheromatous [place] nges. Adenopathy: None. Pelvic viscera: There is an indwelling Rosa catheter. There is a thick-walled bladder. There is a shaver spected bladder mass, possibly necrotic as there are areas of gas present. There is also gas present within the bladder wall. There is a small left posterior lateral bladder diverticulum. There is infil tration of the perivesical fat. Skeletal structures: No destructive osseous lesions are seen. IMPRESSION: 1. No evidence of bowel obstruction. No evidence of free air 2. Nonobstructing lower pole 5 mm left renal calculus 3. No significant hydronephrosis 4. Stable bilateral adrenal nodules likely representing adenomatous 5. Markedly abnormal bladder characterized by bladder wall thickening, infiltration of perivesical fa t, and gas present within the bladder and bladder wall. Given the history of a bladder neoplasm, this could represent a necrotic tumor. Infection must also be considered with foci of emphysematous cysti tis not excluded. ACT 112: Negative or not required by law. Electronically signed by: Olu Wen M.D. 01/18/2020 10:41 AM
[2020-01-18] MEDS: HYDROCODONE/ACETAMOPHEN 5/325MG TAB PO PRN ×2 (11:42→15:53)
[2020-01-18] MEDS ORDERED: EPOETIN ALFA 20,000 UNITS/ML VIAL SQ ONE (12:00)
--- NOTE | 2020-01-18 15:29 | Hospitalist Progress Note ---
Date of Service January 18, 2020 Assessment & Plan (1) Acute kidney injury: baseline Cr high 2's/low 3's. creatinine has risen significantly in the last 48 hours, now 5.8 today. quite worrisome. renal u/s 01/16/20 - no hydronephrosis despite the issues with bladder. CT today without hydronephrosis but, speaking with urology, there appears to be significant clot in the bladder. ALESSANDRA/ARF - 2nd to combination of intrinsic injury/ATN with obstructive issues ? no casts on u/a, however. continue bicarbonate infusion. thus far no hyperkalemia and volume status is appropriate. BMP in am. NPO after MN for possible cystoscopy in am. Appreciate Dr Garcia's consultation and recommendations. 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 treated this week with CBI and Alum (Tuesday-). both stopped yesterday but had recurrent bleeding. bleeding improved overnight; CBI shut off again today. H/H trending down. treat bladder spasms with oxybutinin prn, morphine prn. urology recommending NPO after MN tonight with possible cystoscopy tomorrow AM. (3) Gross hematuria: see above in "radiation cystitis" H/H trending down, repeat CBC in am. If Hb approaches 8 recommend PRBCs. (4) Hypoglycemia: 2nd to lantus. lantus now d/c. novolog on hold as well. hypoglycemia persisted even with D5 containing fluids. increase dextrose to 10% (mixed with bicarbonate). 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 now w/ radiation cystitis. see above. (8) Acute blood loss anemia: 2nd to radiation cystitis. Hb today 8.8; was 11.4 at admission. CBC in am. Tx at level of 8 or less. Consider IV Venofer as well. (9) Hypothyroidism: TSH 12/2019 wnl cont synthroid (10) Hyperlipidemia: cont statin (11) Diabetes mellitus: most recent a1c 6.7% now with hypoglycemia (had hyperglycemia with prednisone; but prednisone now discontinued) HOLD lantus HOLD novolog dextrose infusion to maintain euglycemia (12) Benign prostatic hyperplasia: ortiz in place (13) Benign essential hypertension: BPs now low HOLD amlodipine HOLD ARB (14) Hemorrhoids: anusol cream q6h anusol suppository q6h prn bowel maintenance (15) DVT prophylaxis: SCDs chemical means contraindicated in face of active urinary tract bleeding significant other updated at bedside again today Admission and Anticipated Discharge Date Admission Date: January 13, 2020 Subjective last pm patient developed gross hematuria again. on-call urology contacted -- CBI restarted; Alum resumed. urine cleared by this am - seen by urology and CBI shut off again. patient continues with bladder spasms, ongoing constipation and straining (although had small BM this am), and overall just is uncomfortable in his lower abdomen. has been able to tolerate meals without nausea/emesis, however. he now has irritated hemorrhoids. he is frustrated by his lack of progress and simply wants to go home. Review of Systems Constitutional: no fever and no chills Respiratory: + cough and + dyspnea on exertion (baseline); no dyspnea Cardiovascular: no chest pain Physical Exam Constitutional: well developed and well nourished; no acute distress and no altered mental status ENMT: external ear and nose normal, oropharynx normal Respiratory: normal respiratory effort, lungs clear to auscultation no respiratory distress Auscultation: no crackles and no wheezes Cardiovascular: Rate/Rhythm: regular rate and regular rhythm Heart Sounds: normal S1 and normal S2; no murmur Vessels: posterior tibial pulses present and dorsalis pedis pulses present; no JVD Extremities: + edema (<1+ b/l ) Gastrointestinal (Abdomen): Inspection/Auscultation: + abdomen distended (generalized - similar to yesterday) Percussion/Palpation: + abdomen tender (suprapubic region mainly ); no guarding and no hepatosplenomegaly Skin: + pallor Psychiatric: A+Ox3, euthymic affect Results & Data Results & Data ([facility]) Vital Signs (Past 12 Hours) Vital Signs Pulse Resp BP Pulse Ox 01/18/20 07:25 72 18 105/66 95 Laboratory Results Laboratory Results - last 24 hr 01/17/20 01/17/20 01/17/20 16:32 17:20 17:52 WBC RBC Hgb Hct MCV MCH MCHC RDW Std Deviation RDW Coeff of Josie Plt Count MPV Sodium 139 Potassium 3.9 Chloride 107 Carbon Dioxide 19 L Anion Gap 13.0 H BUN 87 H Creatinine 5.66 H* D Est Cr Clr Drug Dosing 11.0 Est GFR ( Amer) 10.7 Est GFR (Non-Af Amer) 9.2 BUN/Creatinine Ratio 15.2 Glucose 50 L* POC Glucose 54 L* 68 L* Calcium 8.3 L Phosphorus Magnesium Albumin 01/17/20 01/17/20 01/17/20 18:10 18:31 20:49 WBC RBC Hgb Hct MCV MCH MCHC RDW Std Deviation RDW Coeff of Josie Plt Count MPV Sodium Potassium Chloride Carbon Dioxide Anion Gap BUN Creatinine Est Cr Clr Drug Dosing Est GFR ( Amer) Est GFR (Non-Af Amer) BUN/Creatinine Ratio Glucose POC Glucose 68 L* 80 71 Calcium Phosphorus Magnesium Albumin 01/18/20 01/18/20 01/18/20 05:23 05:23 07:48 WBC 13.82 H RBC 2.78 L Hgb 8.8 L Hct 26.4 L MCV 95.0 MCH 31.7 MCHC 33.3 RDW Std Deviation 53.9 H RDW Coeff of Josie 15.6 H Plt Count 208 MPV 11.1 H Sodium 135 L Potassium 3.9 Chloride 100 Carbon Dioxide 21 Anion Gap 14.0 H BUN 90 H Creatinine 5.78 H* Est Cr Clr Drug Dosing 10.8 Est GFR ( Amer) 10.4 Est GFR (Non-Af Amer) 9.0 BUN/Creatinine Ratio 15.7 Glucose 44 L* POC Glucose 52 L* Calcium 8.2 L Phosphorus 7.1 H Magnesium 2.2 Albumin 2.9 L 01/18/20 01/18/20 08:23 11:48 WBC RBC Hgb Hct MCV MCH MCHC RDW Std Deviation RDW Coeff of Josie Plt Count MPV Sodium Potassium Chloride Carbon Dioxide Anion Gap BUN Creatinine Est Cr Clr Drug Dosing Est GFR ( Amer) Est GFR (Non-Af Amer) BUN/Creatinine Ratio Glucose POC Glucose 64 L* 74 Calcium Phosphorus Magnesium Albumin PG Care Time/CCT Total # of Minutes Spent Total Time Spent with Patient: Total time spent is greater than 50% in coordination of care (as documented) at patient's floor/unit and/or counseling patient: Coding Level of Care Code 72690 Subseq Hosp Care Lvl 3 Diagnoses Acute kidney injury N17.9 Radiation cystitis N30.40 Gross hematuria R31.0 Hypoglycemia E16.2 Chronic kidney disease, stage IV (severe) N18.4 Constipation K59.09 Constipation type: other constipation type Malignant neoplasm of lateral wall of bladder C67.2 Acute blood loss anemia D62 Hypothyroidism E03.9 Hypothyroidism type: acquired Hyperlipidemia E78.2 Hyperlipidemia type: mixed hyperlipidemia Diabetes mellitus E11.69 Diabetes mellitus complication status: with other specified complication 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 insulin use: without detention use Diabetes mellitus type: type 2 Benign prostatic hyperplasia N40.1; R33.8 Lower urinary tract symptom detail: urinary retention Lower urinary tract symptom presence: symptoms present Benign essential hypertension I10 Hemorrhoids K64.9 Hemorrhoid type: unspecified DVT prophylaxis Z29.9 (1) Benign prostatic hyperplasia Lower urinary tract symptom detail: urinary retention Lower urinary tract symptom presence: symptoms present Qualified Code(s): N40.1 - Benign prostatic hyperplasia with lower urinary tract symptoms; R33.8 - Other retention of urine (2) Diabetes mellitus Diabetes mellitus complication status: with other specified complication Diabetes mellitus detention insulin use: without terminal make up operator use Diabetes mellitus type: type 2 Qualified Code(s): E11.69 - Type 2 diabetes mellitus with other specified complication (3) Hyperlipidemia Hyperlipidemia type: mixed hyperlipidemia Qualified Code(s): E78.2 - Mixed hyperlipidemia (4) Hypothyroidism Hypothyroidism type: acquired Qualified Code(s): E03.9 - Hypothyroidism, unspecified (5) Constipation Constipation type: other constipation type Qualified Code(s): K59.09 - Other constipation (6) Hemorrhoids Hemorrhoid type: unspecified Qualified Code(s): K64.9 - Unspecified hemorrhoids
[2020-01-18] MEDS: ROSUVASTATIN CALCIUM 10 MG TAB PO SCH (18:17)
--- NOTE | 2020-01-18 20:08 | Anesthesiology Consultation ---
Date of Service January 18, 2020 Assessment & Plan Chart Review Chart Review: Acceptable Risk for Surgery Will need COVID-19 test preoperatively. Ordered. Consults Requested none History Surgery Operation Date: 01/19/20 10:30 Proposed Procedures p Cystoscopy, clot evacuation - Santosh Piper DO Height/Weight Height: 5 ft 4 in Weight: 76.4 kg Allergies Allergy/AdvReac Type Severity Reaction Status Date / Time atorvastatin [From Lipitor] AdvReac muscle Verified 01/13/20 02:20 aches RADIOACTIVE NUCLEAR STRESS Allergy Unknown "BP WENT Uncoded 01/13/20 02:20 TEST DYE OUT OF WHACK" Medications Home Medications Medication Instructions Recorded Confirmed Last Taken albuterol sulfate 2 puff INHALATION Q6H PRN 02/27/19 01/13/20 Unknown allopurinol 300 mg tablet 300 mg PO QAM #90 tab 03/16/19 01/13/20 08/17/19 04:30 valsartan 160 mg tablet 160 mg PO QAM #90 tab 07/02/19 01/13/20 08/16/19 07:00 metoprolol succinate 100 mg 100 mg PO QPM #90 tab 07/09/19 01/13/20 08/16/19 19:00 tablet,extended release 24 hr aspirin 81 mg PO QAM 08/14/19 01/13/20 08/10/19 07:00 lancets 33 gauge #100 ea 08/17/19 01/07/20 Unknown dulaglutide 0.75 mg/0.5 mL 0.75 mg SQ WEEKLY #2 ml 09/19/19 01/13/20 Unknown subcutaneous pen injector levothyroxine 100 mcg tablet 100 mcg PO DAILY #90 tab 09/19/19 01/13/20 Unknown blood sugar diagnostic #100 ea 10/08/19 01/07/20 Unknown amlodipine 2.5 mg tablet 2.5 mg PO DAILY@18 tab 10/22/19 01/13/20 Unknown rosuvastatin 20 mg tablet 20 mg PO DAILY #90 tab 12/04/19 01/13/20 Unknown Active Medications Generic Name Dose Route Start Last Admin Trade Name Freq PRN Reason Stop Dose Admin Hydrocodone Bitart/Acetaminophen 1 tab 01/15/20 18:16 01/18/20 15:53 Hydrocodone/Acetamophen 5/325mg Tab PO 01/29/20 18:15 1 tab Q4H PRN Administration Pain Allopurinol 300 mg 01/13/20 09:00 01/18/20 07:56 Allopurinol 300 Mg Tab PO 02/12/20 08:59 300 mg QAM JESSE Administration Belladonna Alkaloids/Opium 60 mg 01/16/20 00:34 01/17/20 03:51 Belladonna/Opium Supp 60 Mg Supp GA 01/30/20 00:33 60 mg Q8H PRN Administration spasms Bisacodyl 5 mg 01/16/20 20:17 01/17/20 03:05 Bisacodyl 5 Mg Tabec PO 02/15/20 20:16 5 mg Q6H PRN Administration Constipation Cyanocobalamin 1,000 mcg 01/15/20 09:00 01/18/20 07:56 Cyanocobalamin 500 Mcg Tablet (Vitamin B-12) PO 02/14/20 08:59 1,000 mcg QAM JESSE Administration Glucose 15 - 30 gm 01/13/20 06:35 01/14/20 10:14 Glucose 40% Gel 15 Gm Tube PO 02/12/20 06:34 15 gm UD PRN Administration Hypoglycemia Protocol Protocol Heparin Sodium (Porcine) 5 ml 01/14/20 00:45 01/17/20 16:36 Heparin 100 Unit/Ml 5ml Flush FLUSH 02/13/20 00:44 5 ml PRN PRN Administration Flush Sodium Bicarbonate 100 meq/ 1,100 mls @ 75 mls/hr 01/18/20 08:45 01/18/20 08:29 Dextrose IV 02/17/20 08:44 75 mls/hr .[id number] JESSE Administration Insulin Aspart 0 units 01/15/20 11:30 01/18/20 18:02 Insulin Aspart 100 Units/Ml 3 Ml Pen SC 02/14/20 11:29 Not Given ACHS JESSE Levothyroxine Sodium 100 mcg 01/14/20 06:30 01/18/20 05:37 Levothyroxine Sodium 100 Mcg Tablet PO 02/13/20 06:29 100 mcg DAILYBB JESSE Administration Menthol 1 shante 01/16/20 05:14 01/16/20 05:30 Cough Drop (Sugar Free) Shante 24 Shante/1 Box BUCCAL 02/15/20 05:13 1 shante PRN PRN Administration nursing decision Metoprolol Succinate 100 mg 01/13/20 21:00 01/17/20 21:16 Metoprolol Succ 50mg Ext Rel Tab PO 02/12/20 20:59 100 mg QPM JESSE Administration Miscellaneous 15 - 30 gm 01/13/20 06:35 01/18/20 07:15 Carbohydrates For Hypoglycemia PO 02/12/20 06:34 30 gm UD PRN Administration Hypoglycemia Protocol Morphine Sulfate 2 mg 01/16/20 16:37 01/17/20 22:25 Morphine Sulfate 2 Mg/Ml Carp IV 01/30/20 16:36 2 mg Q3H PRN Administration Pain Oxybutynin Chloride 5 mg 01/16/20 10:48 01/18/20 11:36 Oxybutynin Chloride 5 Mg Tab PO 02/15/20 10:47 5 mg TID PRN Administration Bladder pain Polyethylene Glycol 17 gm 01/15/20 18:00 01/18/20 07:55 Polyethylene (Miralax) 17 Gm Pack PO 02/14/20 17:59 17 gm DAILY JESSE Administration Rosuvastatin Calcium 10 mg 01/17/20 18:00 01/18/20 18:17 Rosuvastatin Calcium 10 Mg Tab PO 02/16/20 17:59 10 mg DAILY@1800 JESSE Administration Sennosides 17.2 mg 01/15/20 17:45 01/18/20 07:56 Senna 8.6 Mg Tab PO 02/14/20 17:44 17.2 mg QAM JESSE Administration Valsartan 160 mg 01/13/20 09:00 01/17/20 08:13 Valsartan 80 Mg Tab PO 02/12/20 08:59 Not Given QAM JESSE NPO Date Last Intake of Fluids: 01/14/20 Time Last Intake of Fluids: 05:58 Last Intake of Fluids Comment: glucose gel Date Last Intake of Solids: 01/14/20 Time Last Intake of Solids: 00:00 Past Medical History Medical History Acid reflux Adenomatous polyp of colon Benign essential hypertension Benign prostatic hyperplasia CAD (coronary atherosclerotic disease) Cancer HX BLADDER CANCER SURGERY-CHEMO/RADIATION [facility] 2018 Chronic kidney disease F/U DR LARA Chronic obstructive pulmonary disease RARELY NEED TO USE RESCUE INHALER. INCREASED SHORTNESS OF BREATH CURRENTLY, BUT DUE TO ANEMIA. Diabetes mellitus Diabetes mellitus, type 2 Generalized osteoarthritis of multiple sites Gout Gross hematuria Hearing loss History of stroke without residual deficits OCCURRED DURING AAA REPAIR [facility] 5-6 YRS 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-NO ISSUES SINCE Hyperlipidemia Hypothyroidism Kidney stones Passed x1 Malignant neoplasm of lateral wall of bladder (01/16/18) Past myocardial infarction Port-A-Cath in place CURRENT FUNCTIONING A-PORT IN PLACE Secondary hyperparathyroidism Vitamin D deficiency Past Family History Family History Grandfather , in his eighties No problems noted. Grandmother , young cause unknown No problems noted. Grandfather , in his eighties No problems noted. Grandmother , did have breast cancer but in her eighties of unknown cause No problems noted. Father , He in his sixties had had three strokes and high blood pressure He had had a kidney removed perhaps from cancer No problems noted. Mother , in her mid seventies complications from smoking No problems noted. Daughter Age: 48 No problems noted. Daughter Age: 45 No problems noted. Daughter Age: 40 No problems noted. Brother , at age 7 of a stroke No problems noted. Past Surgical History Surgical History H/O arthroscopy of knee H/O colonoscopy History of biopsy of bladder History of cardiac cath NO STENTS (~10 YEARS AGO)-NO ISSUES SINCE History of carpal tunnel release RIGHT History of cataract surgery BILATERAL History of cystoscopy S/P AAA (abdominal aortic aneurysm) repair Status post biopsy of kidney Social History Smoking Status: Current every day smoker tobacco type: cigarettes Smoking cigarettes per day: 10 Hx Alcohol Use: No Hx Substance Use: No substance use type: does not use Physical Exam Vital Signs Last Vital Signs Temp 37 C 01/18/20 15:47 Pulse 93 H 01/18/20 15:47 Resp 16 01/18/20 15:47 BP 105/53 L 01/18/20 15:47 Pulse Ox 95 01/18/20 15:47 Testing Laboratory Results 01/18/20 05:23 01/18/20 05:23 Urine Color Yellow 01/17/20 Unknown Urine Appearance Clear (Clear) 01/17/20 Unknown Urine pH 5.0 (4.5-7.5) 01/17/20 Unknown Ur Specific [place] 1.010 (1.000-1.030) 01/17/20 Unknown Urine Protein Trace (Negative) H 01/17/20 Unknown Urine Glucose (UA) Negative (Negative) 01/17/20 Unknown Urine Ketones Negative (Negative) 01/17/20 Unknown Urine Nitrite Negative (Negative) 01/17/20 Unknown Ur Leukocyte Esterase 2+ (Negative) H 01/17/20 Unknown Urine WBC (Auto) 1-5 /hpf (0-5) 01/17/20 Unknown Urine RBC (Auto) >30 /hpf (0-4) H 01/17/20 Unknown U Hyaline Cast (Auto) 0 /lpf (0-5) 01/17/20 Unknown U Epithel Cells (Auto) 5-10 /lpf (0-5) H 01/17/20 Unknown Urine Bacteria (Auto) Negative (Negative) 01/17/20 Unknown 01/18/20 01/18/20 01/18/20 17:10 11:48 08:23 POC Glucose 97 74 64 L*
[2020-01-18] MEDS ORDERED: HYDROCORTISONE ACETATE 25 MG SUPP PR PRN (21:05)
[2020-01-18] MEDS: METOPROLOL SUCC 50MG EXT REL TAB PO SCH (22:04)
[2020-01-18] MEDS: HYDROCORTISONE HC 2.5% CRM 30GM TUBE EXT SCH (22:18)
[2020-01-19] MEDS: HYDROCORTISONE HC 2.5% CRM 30GM TUBE EXT SCH ×4 (03:51→20:53)
[2020-01-19 06:15] LABS: Hematocrit (blood only) 25.9 % (42-52); Hemoglobin 8.6 g/dL (14.0-18.0); Mean Corpuscular Hemoglobin 31.3 pg (25-34); Mean Corpuscular Hgb Conc 33.2 g/dL (32-36); Mean Corpuscular Volume 94.2 fL (80-100); Mean Platelet Volume 11.3 fL (7.4-10.4); Platelet Count 200 K/uL (130-400); RDW Coefficient of Variation 15.5 % (11.5-14.5); Red Blood Count 2.75 M/uL (4.7-6.1)
[2020-01-19] MEDS: LEVOTHYROXINE SODIUM 100 MCG TABLET PO SCH (06:25)
[2020-01-19 06:52] LABS: BUN Creatinine Ratio 15.6 (10-20); Calcium 7.6 mg/dl (8.5-10.1); Creatinine Clr Calc Pharmacy 11.5 ml/min; Est GFR (African American) 11.2; Est GFR (Non-African American) 9.7; Potassium 3.9 mmol/L (3.5-5.1)
--- NOTE | 2020-01-19 08:10 | Anesthesiology Consultation ---
Date of Service January 19, 2020 Assessment & Plan (1) Encounter for pre-operative examination: Chart Review Chart Review: Acceptable Risk for Surgery Consults Requested none ASA ASA4 Proposed Anesthesia Anesthesia Type: General Risk / Benefits Reviewed With: PT / POA / Parent / Guardian, Accepts Plan and Informed Consent Obtained History Surgery Operation Date: 01/19/20 10:30 Proposed Procedures p Cystoscopy, clot evacuation - Santosh Piper, DO Height/Weight Height: 5 ft 4 in Weight: 76.4 kg Allergies Allergy/AdvReac Type Severity Reaction Status Date / Time atorvastatin [From Lipitor] AdvReac muscle Verified 01/13/20 02:20 aches RADIOACTIVE NUCLEAR STRESS Allergy Unknown "BP WENT Uncoded 01/13/20 02:20 TEST DYE OUT OF WHACK" Medications Home Medications Medication Instructions Recorded Confirmed Last Taken albuterol sulfate 2 puff INHALATION Q6H PRN 02/27/19 01/13/20 Unknown allopurinol 300 mg tablet 300 mg PO QAM #90 tab 03/16/19 01/13/20 08/17/19 04:30 valsartan 160 mg tablet 160 mg PO QAM #90 tab 07/02/19 01/13/20 08/16/19 07:00 metoprolol succinate 100 mg 100 mg PO QPM #90 tab 07/09/19 01/13/20 08/16/19 19:00 tablet,extended release 24 hr aspirin 81 mg PO QAM 08/14/19 01/13/20 08/10/19 07:00 lancets 33 gauge #100 ea 08/17/19 01/07/20 Unknown dulaglutide 0.75 mg/0.5 mL 0.75 mg SQ WEEKLY #2 ml 09/19/19 01/13/20 Unknown subcutaneous pen injector levothyroxine 100 mcg tablet 100 mcg PO DAILY #90 tab 09/19/19 01/13/20 Unknown blood sugar diagnostic #100 ea 10/08/19 01/07/20 Unknown amlodipine 2.5 mg tablet 2.5 mg PO DAILY@18 tab 10/22/19 01/13/20 Unknown rosuvastatin 20 mg tablet 20 mg PO DAILY #90 tab 12/04/19 01/13/20 Unknown Active Medications Generic Name Dose Route Start Last Admin Trade Name Freq PRN Reason Stop Dose Admin Hydrocodone Bitart/Acetaminophen 1 tab 01/15/20 18:16 01/18/20 15:53 Hydrocodone/Acetamophen 5/325mg Tab PO 01/29/20 18:15 1 tab Q4H PRN Administration Pain Allopurinol 300 mg 01/13/20 09:00 01/18/20 07:56 Allopurinol 300 Mg Tab PO 02/12/20 08:59 300 mg QAM JESSE Administration Belladonna Alkaloids/Opium 60 mg 01/16/20 00:34 01/17/20 03:51 Belladonna/Opium Supp 60 Mg Supp RI 01/30/20 00:33 60 mg Q8H PRN Administration spasms Bisacodyl 5 mg 01/16/20 20:17 01/17/20 03:05 Bisacodyl 5 Mg Tabec PO 02/15/20 20:16 5 mg Q6H PRN Administration Constipation Cyanocobalamin 1,000 mcg 01/15/20 09:00 01/18/20 07:56 Cyanocobalamin 500 Mcg Tablet (Vitamin B-12) PO 02/14/20 08:59 1,000 mcg QAM JESSE Administration Glucose 15 - 30 gm 01/13/20 06:35 01/14/20 10:14 Glucose 40% Gel 15 Gm Tube PO 02/12/20 06:34 15 gm UD PRN Administration Hypoglycemia Protocol Protocol Heparin Sodium (Porcine) 5 ml 01/14/20 00:45 01/17/20 16:36 Heparin 100 Unit/Ml 5ml Flush FLUSH 02/13/20 00:44 5 ml PRN PRN Administration Flush Hydrocortisone 1 appln 01/18/20 21:15 01/19/20 03:51 Hydrocortisone Hc 2.5% Crm 30gm Tube EXT 02/17/20 21:14 Not Given Q6H JESSE Hydrocortisone 25 mg 01/18/20 21:05 01/19/20 04:39 Hydrocortisone Acetate 25 Mg Supp RI 02/17/20 21:04 25 mg Q6H PRN Administration Hemorrhoids Sodium Bicarbonate 100 meq/ 1,100 mls @ 75 mls/hr 01/18/20 08:45 01/18/20 22:47 Dextrose IV 02/17/20 08:44 75 mls/hr .[id number] JESSE Administration Insulin Aspart 0 units 01/15/20 11:30 01/18/20 22:39 Insulin Aspart 100 Units/Ml 3 Ml Pen SC 02/14/20 11:29 Not Given ACHS JESSE Levothyroxine Sodium 100 mcg 01/14/20 06:30 01/19/20 06:25 Levothyroxine Sodium 100 Mcg Tablet PO 02/13/20 06:29 Not Given DAILYBB JESSE Menthol 1 shante 01/16/20 05:14 01/16/20 05:30 Cough Drop (Sugar Free) Shante 24 Shante/1 Box BUCCAL 02/15/20 05:13 1 shante PRN PRN Administration nursing decision Metoprolol Succinate 100 mg 01/13/20 21:00 01/18/20 22:04 Metoprolol Succ 50mg Ext Rel Tab PO 02/12/20 20:59 100 mg QPM JESSE Administration Miscellaneous 15 - 30 gm 01/13/20 06:35 01/18/20 07:15 Carbohydrates For Hypoglycemia PO 02/12/20 06:34 30 gm UD PRN Administration Hypoglycemia Protocol Morphine Sulfate 2 mg 01/16/20 16:37 01/17/20 22:25 Morphine Sulfate 2 Mg/Ml Carp IV 01/30/20 16:36 2 mg Q3H PRN Administration Pain Oxybutynin Chloride 5 mg 01/16/20 10:48 01/18/20 11:36 Oxybutynin Chloride 5 Mg Tab PO 02/15/20 10:47 5 mg TID PRN Administration Bladder pain Polyethylene Glycol 17 gm 01/15/20 18:00 01/18/20 07:55 Polyethylene (Miralax) 17 Gm Pack PO 02/14/20 17:59 17 gm DAILY JESSE Administration Rosuvastatin Calcium 10 mg 01/17/20 18:00 01/18/20 18:17 Rosuvastatin Calcium 10 Mg Tab PO 02/16/20 17:59 10 mg DAILY@1800 JESSE Administration Sennosides 17.2 mg 01/15/20 17:45 01/18/20 07:56 Senna 8.6 Mg Tab PO 02/14/20 17:44 17.2 mg QAM JESSE Administration Valsartan 160 mg 01/13/20 09:00 01/17/20 08:13 Valsartan 80 Mg Tab PO 02/12/20 08:59 Not Given QAM JESSE NPO Date Last Intake of Fluids: 01/18/20 Time Last Intake of Fluids: 00:00 Last Intake of Fluids Comment: glucose gel Date Last Intake of Solids: 01/18/20 Time Last Intake of Solids: 00:00 Past Medical History Medical History Acid reflux Adenomatous polyp of colon Benign essential hypertension Benign prostatic hyperplasia CAD (coronary atherosclerotic disease) Cancer HX BLADDER CANCER SURGERY-CHEMO/RADIATION [facility] 2017 Chronic kidney disease F/U DR LARA Chronic obstructive pulmonary disease RARELY NEED TO USE RESCUE INHALER. INCREASED SHORTNESS OF BREATH CURRENTLY, BUT DUE TO ANEMIA. Diabetes mellitus Diabetes mellitus, type 2 Generalized osteoarthritis of multiple sites Gout Gross hematuria Hearing loss History of stroke without residual deficits OCCURRED DURING AAA REPAIR [facility] [place] 5-6 YRS 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-NO ISSUES SINCE Hyperlipidemia Hypothyroidism Kidney stones Passed x1 Malignant neoplasm of lateral wall of bladder (01/16/18) Past myocardial infarction Port-A-Cath in place CURRENT FUNCTIONING A-PORT IN PLACE Secondary hyperparathyroidism Vitamin D deficiency Exercise / Class Metabolic Activity II 4-5 Yardwork/Stairs/Walk up hill Past Family History Family History Grandfather , in his eighties No problems noted. Grandmother , young cause unknown No problems noted. Grandfather , in his eighties No problems noted. Grandmother , did have breast cancer but in her eighties of unknown cause No problems noted. Father , He in his sixties had had three strokes and high blood pressure He had had a kidney removed perhaps from cancer No problems noted. Mother , in her mid seventies complications from smoking No problems noted. Daughter Age: 48 No problems noted. Daughter Age: 45 No problems noted. Daughter Age: 40 No problems noted. Brother , at age 7 of a stroke No problems noted. Past Surgical History Surgical History H/O arthroscopy of knee H/O colonoscopy History of biopsy of bladder History of cardiac cath NO STENTS (~10 YEARS AGO)-NO ISSUES SINCE History of carpal tunnel release RIGHT History of cataract surgery BILATERAL History of cystoscopy S/P AAA (abdominal aortic aneurysm) repair Status post biopsy of kidney Past Anesthesia History No Hx of Anesthesia Complications and No Family Hx of Anesthesia Complications History of PONV No Hx of PONV and No Hx of Motion Sickness Social History Smoking Status: Current every day smoker tobacco type: cigarettes Smoking cigarettes per day: 10 Hx Alcohol Use: No Hx Substance Use: No substance use type: does not use Physical Exam Vital Signs Last Vital Signs Temp 98.6 F 01/19/20 07:18 Pulse 74 01/19/20 07:18 Resp 18 01/19/20 07:18 BP 116/69 01/19/20 07:18 Pulse Ox 95 01/19/20 07:18 ENMT Mouth: no dentition abnormality Thyromental Distance: > or= 3.5 Finger Breadths Mallampati Class: II Neck normal visual inspection Respiratory normal respiratory effort Auscultation: lungs clear to auscultation bilaterally Cardiovascular Rate/Rhythm: regular rate and regular rhythm Testing Laboratory Results 01/19/20 05:43 01/19/20 05:43 Urine Color Yellow 01/17/20 Unknown Urine Appearance Clear (Clear) 01/17/20 Unknown Urine pH 5.0 (4.5-7.5) 01/17/20 Unknown Ur Specific [place] 1.010 (1.000-1.030) 01/17/20 Unknown Urine Protein Trace (Negative) H 01/17/20 Unknown Urine Glucose (UA) Negative (Negative) 01/17/20 Unknown Urine Ketones Negative (Negative) 01/17/20 Unknown Urine Nitrite Negative (Negative) 01/17/20 Unknown Ur Leukocyte Esterase 2+ (Negative) H 01/17/20 Unknown Urine WBC (Auto) 1-5 /hpf (0-5) 01/17/20 Unknown Urine RBC (Auto) >30 /hpf (0-4) H 01/17/20 Unknown U Hyaline Cast (Auto) 0 /lpf (0-5) 01/17/20 Unknown U Epithel Cells (Auto) 5-10 /lpf (0-5) H 01/17/20 Unknown Urine Bacteria (Auto) Negative (Negative) 01/17/20 Unknown 01/18/20 20:56 POC Glucose 90 Electrocardiogram Date: 08/17/19 Normal sinus rhythm, rate 74 bpm Poor R wave progression, consider anterior IA vs. lead placement vs. LVH Mild ST elevations in the inferior leads, unchanged from prior Abnormal ECG When compared with ECG of 03-JAN-2018 11:04, No significant change was found Confirmed by Juarez Conway ([id number]) on 08/17/2019 3:25:29 PM
[2020-01-19] MEDS ORDERED: ONDANSETRON INJ 2 MG/ML 2 ML VIAL ONE (08:15)
[2020-01-19] MEDS ORDERED: DEXAMETHASONE SOD INJ 4 MG/ML VIAL ONE (08:15)
[2020-01-19] MEDS ORDERED: PROPOFOL IV EMULSION 10 MG/ML 20 ML VIAL IV ONE (08:15)
[2020-01-19] MEDS ORDERED: LIDOCAINE HCL 2% 2 ML VIAL/AMP(20MG/ML) INFIL ONE (08:15)
[2020-01-19] MEDS ORDERED: ePHEDrine sulfate 50 MG/ML AMP IV PRN (08:22)
[2020-01-19] MEDS ORDERED: fentaNYL citrate 100 MCG/2 ML VIAL IV PRN (08:22)
[2020-01-19] MEDS ORDERED: ATROPINE SULFATE 0.1 MG/ML 10ML SYR IV PRN (08:22)
[2020-01-19] MEDS ORDERED: ONDANSETRON INJ 2 MG/ML 2 ML VIAL IV PRN (08:22)
--- NOTE | 2020-01-19 08:32 | Urology Progress Note ---
Date of Service January 19, 2020 Assessment & Plan (1) Malignant neoplasm of lateral wall of bladder: Repeat CT completed. Patient found to have some clot material and air within bladder. Continues to have major bothersome lower urinary tract issues. Has not had full return of bowel function. Is n.p.o. Risk and benefits are discussed at length for intervention. Patient has worsening renal function with concern for obstruction Risks and benefits discussed at length for procedure. These include bleeding, infection, injury to surrounding tissues or organs, and risks associated with anesthesia. Patient states understanding and agrees to proceed. Will sign consent and schedule. Plan for cystoscopy with clot evacuation and possible fulguration Admission and Anticipated Discharge Date Admission Date: January 13, 2020 Subjective Patient with history of bladder cancer with history of multiple episodes of clot retention and continued issues with intermittent bleeding and need for CBI as well as worsening renal function which continues to fluctuate without considerable improvement. Patient has had worsening issues over the last few months. Patient continues to have problems with clots still remaining bladder on most recent CT scan. Had previously been ambulating regularly. Continues to have a slow return of bowel function. Patient was tolerating diet up until n.p.o. at midnight Review of Systems Review of Systems: All systems reviewed & are unremarkable except as noted in HPI & below Physical Exam Physical Exam: General: Alert in no acute distress. HEENT: Normocephalic Atraumatic. Inspection normal. Cranial Nerves 2-12 Grossly intact. Normal inspection of face. Normal inspection of neck. Psychologic: Normal affect. Respiratory: Nonlabored. No use of accessory muscles. No tachypnea or dyspnea. Cardiovascular: No tachycardia Skin: [place] and Dry. No rashes or visible lesions. Extremities/Lymphatics: No edema Abdomen: Soft Non-distended. No rebound or guarding. : Rosa in place draining light red urine Results & Data ([facility]) Vital Signs (Past 12 Hours) Vital Signs Temp Pulse Pulse Resp BP BP Pulse Ox 01/19/20 07:18 37.0 C 74 18 116/69 95 01/18/20 23:24 37.3 C 79 18 131/88 94 01/18/20 22:00 105 H 132/67 PG Care Time/CCT Total # of Minutes Spent Total Time Spent with Patient: Total time spent is greater than 50% in coordination of care (as documented) at patient's floor/unit and/or counseling patient: Coding Level of Care Code 83680 Subseq Hosp Care Lvl 3 Diagnoses Malignant neoplasm of lateral wall of bladder C67.2
[2020-01-19] MEDS: INSULIN ASPART 100 UNITS/ML 3 ML PEN SC SCH ×4 (08:33→20:54)
[2020-01-19] MEDS ORDERED: SODIUM CHLORIDE 0.9% INJ 10 ML VIAL ONE (08:54)
[2020-01-19] MEDS ORDERED: CEFAZOLIN 250 MG/ML 1 GM VIAL ONE (08:54)
[2020-01-19] MEDS ORDERED: BELLADONNA/OPIUM SUPP 60 MG SUPP PR ONE (09:14)
[2020-01-19] MEDS: allopurinoL 300 MG TAB PO SCH (09:26)
[2020-01-19] MEDS: POLYETHYLENE (MIRALAX) 17 GM PACK PO SCH (09:26)
[2020-01-19] MEDS: SENNA 8.6 MG TAB PO SCH (09:26)
[2020-01-19] MEDS: CYANOCOBALAMIN 500 MCG TABLET (VITAMIN B-12) PO SCH (09:26)
--- NOTE | 2020-01-19 09:42 | Operative Report ---
PG Post Operative Report Pre & Post Diagnosis Operation Date: 01/19/20 10:30 Pre-Op Diagnosis: HEMATURIA Post-Op Diagnosis: HEMATURIA I identified the patient and participated in the time-out.: Yes Procedure Operation Date: 01/19/20 10:30 Actual Procedures p Cystoscopy, clot evacuation, Fulguration, TURP/TURBT (bladder neck) - Santosh Piper DO Surgeon Santosh Piper, II, DO Fruit [employer] None Estimated Blood Loss 5 Findings Consistent with Post-Op Diagnosis Bleeding lesion at 11-1 oclock position of bladder neck and prostatic urethra. Multiple irritated and bleeding areas through bladder. Large thick coagulated clot material. Specimens Resected Bladder neck/prostate lesions Drains [address] Anesthesia Type MAC Complications none Disposition Disposition: Recovery Room Indications Patient with bladder cancer with bleeding due to irritation with lesions and hematuria. Risks and benefits discussed at length. Description of Procedure Patient was consented and brought back to the operating room. Patient was placed under anesthesia in the supine position and moved to the dorsal lithotomy position. Patient was prepped and draped in the regular sterile fashion. A time out was completed. A 30degree Cystoscope was placed into the bladder and the entire bladder was examined. A considerable amount of very thick clot material was irrigated multiple times to clear the bladder. The UO's were identified as well as the bladder neck, trigone, dome, and the other important landmarks. Multiple areas of healing with sloughing tissue and moderate ulceration with mild bleeding were noted. The lesions and areas of concern were identified and area/size was assessed. A considerable area was at the prostate urethra/bladder neck at the 11 to 1 oclock position. The resection scope with the fine bipolar loop was selected. The entire lesion was assessed. The lesion was resected. The resected tissue was removed and sent for analysis. The resection bed and edges of the resection were fulgurated and the entire area inspected. Approx 16 areas on the posterior wall, dome, and trigone were also found to be irritated and ulcerated. Sloughing tissue was removed and the underlying areas were fulgurated. All bleeding was controlled. The bladder was inspected a final time. The bladder was emptied. The scope was removed. A [address] catheter was placed. The patient was cleaned, aroused from anesthesia, and transferred to the pacu in stable condition having tolerated the procedure well with no complications. I was present and participated in all aspects of the procedure. The patient will be monitored in the PACU until transferred. I attest to the content of the Intraoperative Record and any orders documented therein. Any exceptions are noted below.
--- NOTE | 2020-01-19 10:14 | Anesthesiology Progress Note ---
Date of Service January 19, 2020 Anesthesia Post Procedure Vital Signs Vital Signs: Temp Pulse Pulse Pulse Resp BP BP 01/19/20 10:05 95 H 25 H 129/73 01/19/20 09:55 90 19 138/87 01/19/20 09:45 93 H 20 147/70 H 01/19/20 09:38 97.9 F 92 H 18 137/89 01/19/20 07:18 98.6 F 74 18 116/69 01/18/20 23:24 99.1 F 79 18 131/88 01/18/20 22:00 105 H 132/67 01/18/20 15:47 98.6 F 93 H 16 105/53 L Pulse Ox 01/19/20 10:05 93 01/19/20 09:55 100 01/19/20 09:45 96 01/19/20 09:38 96 01/19/20 07:18 95 01/18/20 23:24 94 01/18/20 22:00 01/18/20 15:47 95 Pain Intensity Abdomen: Pain Intensity: 10 Pelvic: Pain Intensity: 9 Transfer of Care Handoff Completed per policy Notes Mental Status: alert / awake / arousable and participated in evaluation Patient Amnestic to Procedure: Yes Nausea / Vomiting: adequately controlled Pain: adequately controlled Airway Patency, RR, SpO2: stable & adequate BP & HR: stable & adequate Hydration State: stable & adequate Anesthetic Complications: no major complications apparent and Pt Satisfied with anesthetic care
--- NOTE | 2020-01-19 10:51 | Nephrology Progress Note ---
Date of Service January 19, 2020 Assessment & Plan (1) Acute kidney injury: * Obstructive uropathy due to bladder CA (h/o chemo, rad tx) * Cr increased following cystoscopy w/ fulguration * Required follow up cystoscopy 01/18 w/ evacuation of clot * Remains on CBI * Volume status and electrolyte balance remain acceptable at this time (2) Chronic kidney disease, stage IV (severe): * CKD IV A3 w/ baseline Cr 2.6-3.2 mg/dL due to secondary FSGS and/or diabetic nephropathy (3) Acute blood loss anemia: * H/H stable * Tsat 31 and ferritin 106, acceptable * Epogen 20,000 units SQ admin 01/18/20 (4) Benign essential hypertension: * Valsartan held * BP acceptable at this time. No change to current BP regimen Admission and Anticipated Discharge Date Admission Date: January 13, 2020 Subjective Mr. Crews was seen & examined in his hospital room this morning. He has just returned from the OR. CBI continues. Clear urine is present in ortiz collection bag. Mr. Crews voices no medical concerns. Review of Systems Constitutional: no fever Eyes: no problem reported Ear, Nose, Mouth, Throat: no problem reported Respiratory: no dyspnea Cardiovascular: no chest pain, no palpitations and no edema Gastrointestinal: no abdominal pain and no diarrhea/loose stools Musculoskeletal: no back pain Integumentary: no rash Neurologic: no dizziness and no confusion Physical Exam Constitutional: not in distress Eyes: PERRL and EOM intact bilaterally ENMT: external ear and nose normal, oropharynx normal Neck: trachea midline, no thyromegaly Respiratory: normal respiratory effort, lungs clear to auscultation Cardiovascular: RRR, no murmur, no edema Gastrointestinal (Abdomen): normal bowel sounds, soft, nontender, no hepatosplenomegaly Musculoskeletal: Extremities: no cyanosis Skin: no rashes, warm and dry Neurologic: awake; not confused Results & Data ([facility]) Vital Signs (Past 12 Hours) Vital Signs Temp Pulse Pulse Pulse Resp BP BP 01/19/20 10:15 37.1 C 90 19 114/65 01/19/20 10:05 95 H 25 H 129/73 01/19/20 09:55 90 19 138/87 01/19/20 09:45 93 H 20 147/70 H 01/19/20 09:38 36.6 C 92 H 18 137/89 01/19/20 07:18 37.0 C 74 18 116/69 01/18/20 23:24 37.3 C 79 18 131/88 Pulse Ox 01/19/20 10:15 94 01/19/20 10:05 93 01/19/20 09:55 100 01/19/20 09:45 96 01/19/20 09:38 96 01/19/20 07:18 95 01/18/20 23:24 94 Laboratory Results Laboratory Tests 01/18/20 01/19/20 01/19/20 05:23 05:43 05:43 WBC 13.80 H Hgb 8.6 L Hct 25.9 L Plt Count 200 Sodium 136 Potassium 3.9 Chloride 100 Carbon Dioxide 28 BUN 85 H Creatinine 5.44 H* D Glucose 128 H Calcium 7.6 L Albumin 2.9 L PG Care Time/CCT Total # of Minutes Spent Total Time Spent with Patient: Total time spent is greater than 50% in coordination of care (as documented) at patient's floor/unit and/or counseling patient: Coding Level of Care Code 91053 Subseq Hosp Care Lvl 3 Diagnoses Acute kidney injury N17.9 Chronic kidney disease, stage IV (severe) N18.4 Acute blood loss anemia D62 Benign essential hypertension I10
--- NOTE | 2020-01-19 12:19 | Hospitalist Progress Note ---
Date of Service January 19, 2020 Assessment & Plan (1) Acute kidney injury: Baseline Cr 2-3. - Peaked at 5.8 on 01/17 - Renal u/s on 01/16/20 - no hydronephrosis despite the issues with bladder. - Down slightly today at 5.4; discussed with nephrology. Hoping this is a post-renal/obstructive and now that clot has been evacuated will improve. - Continue bicarbonate infusion. 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 - S/p cystoscopy and clot evacuation by Dr. Piper on 01/18. Per operative note, there was considerable areas of ulceration and one area was removed and sent to pathology. Other areas were fulgurated. - Continue CBI per urology - Follow up pathology from 01/18 cystoscopy (3) Diabetes mellitus: Most recent a1c was 6.7%. - Now with hypoglycemia (had hyperglycemia with prednisone; but prednisone now discontinued). - Holding Lantus & Novolog - Dextrose infusion to maintain euglycemia -> Blood sugars have been 100 - 130 in last 24 hours. (4) Constipation: CT a/p on 01/17 was w/o ileus or obstruction. - Cont senna & Miralax - Ongoing - but modestly improved today. Formed BM. (5) Acute blood loss anemia: 2nd to radiation cystitis & hematuria. Hgb was 11.4 at admission. - Hgb was 8.6 today. - Will give one dose of IV iron today. (6) Benign essential hypertension: BP has been 115-160/50-80 in the last 1-2 days. - Continue amlodipine & beta-reynaldo - Hold ARB for ALESSANDRA. (Had been ongoing). (7) Chronic kidney disease, stage IV (severe): Baseline Cr about 2.7 to 3.1. - Now with ALESSANDRA/ARF as above. 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 - See above. (9) Hypothyroidism: TSH in 12/2019 was wnl. - Cont Synthroid 100 mcg daily (10) Hyperlipidemia: - Cont statin (11) Benign prostatic hyperplasia: Rosa in place at present. - Monitor for retention after Rosa out. (12) Hemorrhoids: No active bleeding at present. - Continue Anusol cream q6h & Anusol suppository q6h PRN - Bowel maintenance (13) DVT prophylaxis: SCDs - Chemical means contraindicated in face of active urinary tract bleeding Admission and Anticipated Discharge Date Admission Date: January 13, 2020 Subjective Pleasant this morning. No pain after cystoscopy. Had BM today as well. Reports no fevers/chills, chest pain, shortness of breath, abdominal pain, nausea, or vomiting. Physical Exam Constitutional: WD/WN, vitals as above Eyes: EOM intact bilaterally; no conjunctival abnormality ENMT: external ear and nose normal, oropharynx normal Neck: trachea midline, no thyromegaly normal visual inspection Respiratory: normal respiratory effort, lungs clear to auscultation no resp iratory distress Cardiovascular: RRR, no murmur, no edema Gastrointestinal (Abdomen): Inspection/Auscultation: abdomen normal to inspection; abdomen not distended Musculoskeletal: no cyanosis or clubbing, extremities motor strength 5/5 Skin: no rashes, warm and dry Neurologic: moves all extremities and awake Psychiatric: Orientation: alert, oriented to person and cooperative Genitourinary: + penis abnormality (Rosa in place) Results & Data Results & Data ([facility]) Vital Signs (Past 12 Hours) Vital Signs Temp Pulse Pulse Pulse Resp BP Pulse Ox 01/19/20 11:30 36.9 C 85 20 123/76 98 01/19/20 11:04 37.2 C 90 20 119/57 L 94 01/19/20 10:30 37.0 C 92 H 15 116/69 94 01/19/20 10:15 37.1 C 90 19 114/65 94 01/19/20 10:05 95 H 25 H 129/73 93 01/19/20 09:55 90 19 138/87 100 01/19/20 09:45 93 H 20 147/70 H 96 01/19/20 09:38 36.6 C 92 H 18 137/89 96 01/19/20 07:18 37.0 C 74 18 116/69 95 PG Care Time/CCT Total # of Minutes Spent Total Time Spent with Patient: Total time spent is greater than 50% in coordination of care (as documented) at patient's floor/unit and/or counseling patient: Coding Level of Care Code 16640 Subseq Hosp Care Lvl 3 Diagnoses Acute kidney injury N17.9 Radiation cystitis N30.40 Diabetes mellitus E11.69 Diabetes mellitus type: type 2 Diabetes mellitus retirement insulin use: without retirement use Diabetes mellitus complication status: with other specified complication Constipation K59.09 Constipation type: other constipation type Acute blood loss anemia D62 Benign essential hypertension I10 Chronic kidney disease, stage IV (severe) N18.4 Malignant neoplasm of lateral wall of bladder C67.2 Hypothyroidism E03.9 Hypothyroidism type: acquired Hyperlipidemia E78.2 Hyperlipidemia type: mixed hyperlipidemia Benign prostatic hyperplasia N40.1; R33.8 Lower urinary tract symptom presence: symptoms present Lower urinary tract symptom detail: urinary retention Hemorrhoids K64.9 Hemorrhoid type: unspecified DVT prophylaxis Z29.9 (1) Constipation Constipation type: other constipation type Qualified Code(s): K59.09 - Other constipation (2) Hypothyroidism Hypothyroidism type: acquired Qualified Code(s): E03.9 - Hypothyroidism, unspecified (3) Hyperlipidemia Hyperlipidemia type: mixed hyperlipidemia Qualified Code(s): E78.2 - Mixed hyperlipidemia (4) Diabetes mellitus Diabetes mellitus type: type 2 Diabetes mellitus retirement insulin use: without retirement use Diabetes mellitus complication status: with other specified complication Qualified Code(s): E11.69 - Type 2 diabetes mellitus with other specified complication (5) Benign prostatic hyperplasia Lower urinary tract symptom presence: symptoms present Lower urinary tract symptom detail: urinary retention Qualified Code(s): N40.1 - Benign prostatic hyperplasia with lower urinary tract symptoms; R33.8 - Other retention of urine (6) Hemorrhoids Hemorrhoid type: unspecified Qualified Code(s): K64.9 - Unspecified hemorrhoids
[2020-01-19] MEDS ORDERED: IRON SUCROSE 300 MG in SODIUM CHLORIDE 0.9% 250 ML IV STA (12:20)
[2020-01-19] MEDS: SODIUM BICARBONATE IV SCH (13:49)
[2020-01-19] MEDS: DEXTROSE 10% IV SCH (13:49)
[2020-01-19] MEDS: ROSUVASTATIN CALCIUM 10 MG TAB PO SCH (17:51)
[2020-01-19] MEDS: METOPROLOL SUCC 50MG EXT REL TAB PO SCH (20:52)
[2020-01-19] MEDS ORDERED: PHARMACY GLYCEMIC MGMT CONSULT PRN (23:46)
[2020-01-20] MEDS: SODIUM BICARBONATE 8.4% 100 MEQ in DEXTROSE 5% 1,000 ML IV SCH ×2 (00:34→14:07)
[2020-01-20] MEDS: INSULIN ASPART 100 UNITS/ML 3 ML PEN SC SCH ×7 (00:35→21:15)
[2020-01-20] MEDS: HYDROCORTISONE HC 2.5% CRM 30GM TUBE EXT SCH ×4 (03:38→20:16)
[2020-01-20] MEDS: LEVOTHYROXINE SODIUM 100 MCG TABLET PO SCH (05:48)
[2020-01-20 06:09] LABS: Hematocrit (blood only) 24.8 % (42-52); Hemoglobin 8.1 g/dL (14.0-18.0); Mean Corpuscular Hemoglobin 31.4 pg (25-34); Mean Corpuscular Hgb Conc 32.7 g/dL (32-36); Mean Corpuscular Volume 96.1 fL (80-100); Mean Platelet Volume 10.9 fL (7.4-10.4); Platelet Count 196 K/uL (130-400); RDW Coefficient of Variation 15.9 % (11.5-14.5); RDW Standard Deviation 55.5 fL (36.4-46.3); Red Blood Count 2.58 M/uL (4.7-6.1); White Blood Count 11.38 K/uL (4.8-10.8)
[2020-01-20 07:02] LABS: Albumin Globulin Ratio 0.7 (0.9-2); Albumin Level 2.3 gm/dl (3.4-5.0); BUN Creatinine Ratio 15.3 (10-20); Bilirubin,Total 0.2 mg/dl (0.2-1); Calcium 8.1 mg/dl (8.5-10.1); Creatinine Clr Calc Pharmacy 12.7 ml/min; Est GFR (African American) 12.6; Est GFR (Non-African American) 10.9; Globulin 3.4 gm/dl (2.5-4.0); Magnesium 2.4 mg/dl (1.8-2.4); Potassium 3.6 mmol/L (3.5-5.1); Total Protein 5.7 gm/dl (6.4-8.2)
[2020-01-20] MEDS: POLYETHYLENE (MIRALAX) 17 GM PACK PO SCH (10:03)
[2020-01-20] MEDS: SENNA 8.6 MG TAB PO SCH (10:03)
[2020-01-20] MEDS: allopurinoL 300 MG TAB PO SCH (10:05)
[2020-01-20] MEDS: AMLODIPINE BESYLATE 5 MG TAB PO SCH (10:05)
[2020-01-20] MEDS: CYANOCOBALAMIN 500 MCG TABLET (VITAMIN B-12) PO SCH (10:06)
--- NOTE | 2020-01-20 10:57 | Nephrology Progress Note ---
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 One dose IV iron administered 01/20/20 * Epogen 20,000 units SQ admin 01/18/20 (4) Benign essential hypertension: * Continue to hold Valsartan * BP acceptable at this time. No change to current BP regimen Admission and Anticipated Discharge Date Admission Date: January 13, 2020 Subjective Mr. Crews was seen & examined in his hospital room this morning. CBI continues. Clear urine is present in ortiz collection bag. Mr. Crews voices no medical concerns. Review of Systems Constitutional: no fever Eyes: no problem reported Ear, Nose, Mouth, Throat: no problem reported Respiratory: no dyspnea Cardiovascular: no chest pain and no edema Gastrointestinal: no abdominal pain and no diarrhea/loose stools Musculoskeletal: no back pain Integumentary: no rash Neurologic: no dizziness and no confusion Physical Exam Constitutional: not in distress Eyes: PERRL, conjunctivae normal, anicteric sclerae PERRL and EOM intact bilaterally ENMT: external ear and nose normal, oropharynx normal Neck: trachea midline, no thyromegaly Respiratory: normal respiratory effort, lungs clear to auscultation Cardiovascular: RRR, no murmur, no edema Gastrointestinal (Abdomen): normal bowel sounds, soft, nontender, no hepatosplenomegaly Musculoskeletal: no cyanosis or clubbing, extremities motor strength 5/5 Extremities: no cyanosis Skin: no rashes, warm and dry Neurologic: awake; not confused Results & Data ([facility]) Vital Signs (Past 12 Hours) Vital Signs Temp Pulse Resp BP Pulse Ox 01/20/20 07:31 36.7 C 20 159/80 H 94 01/20/20 03:42 36.6 C 79 16 147/85 H 95 Laboratory Results Laboratory Tests 01/20/20 01/20/20 05:30 05:30 WBC 11.38 H Hgb 8.1 L Hct 24.8 L Plt Count 196 Sodium 145 D Potassium 3.6 Chloride 107 Carbon Dioxide 30 BUN 75 H Creatinine 4.92 H* D Glucose 111 H PG Care Time/CCT Total # of Minutes Spent Total Time Spent with Patient: Total time spent is greater than 50% in coordination of care (as documented) at patient's floor/unit and/or counseling patient: Coding Level of Care Code 81009 Subseq Hosp Care Lvl 3 Diagnoses Acute kidney injury N17.9 Chronic kidney disease, stage IV (severe) N18.4 Acute blood loss anemia D62 Benign essential hypertension I10
--- NOTE | 2020-01-20 11:01 | Urology Progress Note ---
Date of Service January 20, 2020 Assessment & Plan (1) Hematuria: (2) Radiation cystitis: Postop day1 status post clot evacuation with a resection of bladder neck/prostate and fulguration of multiple bladder lesions. Patient tolerated without considerable problems or issues. Creatinine has slightly improved this morning. Is tolerating minimal CBI at this point. Plan will be to turn off CBI and allow patient to continue to clear. May be able to remove catheter prior to discharge however will need to monitor urine output as well as kidney function over time. At this point will defer plans for discharge and further management to primary team and nephrology from a urological standpoint can maintain catheter and continue with drainage. Otherwise we will continue to monitor and would be available if any further issues or major concerns. Call if any changes or problems. Admission and Anticipated Discharge Date Admission Date: January 13, 2020 Subjective Postop from clot evacuation and fulguration and resection of bladder neck/prostate for obstruction issues. Patient has been tolerating well. Has noticed some frequency and urgency. Has not had severe pain in the back and flank. Does have occasional burning and irritation. No severe episodes or major changes. No new nausea or vomiting. Had tolerated anesthesia without major problems. Patient has CBI running at a very minimal with very light pink urine. Will turn off completely this morning Creatinine has slightly improved. Patient had a large ball of clot/material within the bladder that was irrigated at time of procedure Review of Systems Review of Systems: All systems reviewed & are unremarkable except as noted in HPI & below Physical Exam Physical Exam: General: Alert in no acute distress. HEENT: Normocephalic Atraumatic. Inspection normal. Cranial Nerves 2-12 Grossly intact. Normal inspection of face. Normal inspection of neck. Psychologic: Normal affect. Respiratory: Nonlabored. No use of accessory muscles. No tachypnea or dyspnea. Cardiovascular: No tachycardia Skin: Brethren and Dry. No rashes or visible lesions. Extremities/Lymphatics: No edema Abdomen: Soft Non-distended. No rebound or guarding. : Rosa in place with CBI off with extremely mild pink tinge Results & Data ([facility]) Vital Signs (Past 12 Hours) Vital Signs Temp Pulse Resp BP Pulse Ox 01/20/20 07:31 36.7 C 20 159/80 H 94 01/20/20 03:42 36.6 C 79 16 147/85 H 95 PG Care Time/CCT Total # of Minutes Spent Total Time Spent with Patient: Total time spent is greater than 50% in coordination of care (as documented) at patient's floor/unit and/or counseling patient: Coding Level of Care Code 23779 Subseq Hosp Care Lvl 3 Diagnoses Hematuria R31.0 Hematuria type: gross Radiation cystitis N30.40 (1) Hematuria Hematuria type: gross Qualified Code(s): R31.0 - Gross hematuria
--- NOTE | 2020-01-20 12:44 | Hospitalist Progress Note ---
Date of Service January 20, 2020 Assessment & Plan (1) Acute kidney injury: Baseline Cr 2-3. - Peaked at 5.8 on 01/17 - Renal u/s on 01/16/20 - no hydronephrosis despite the issues with bladder. - Down slightly today at 4.9; discussed with nephrology today. - Stop bicarbonate infusion. 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 - S/p cystoscopy and clot evacuation by Dr. Piper on 01/18. Per operative note, there was considerable areas of ulceration and one area was removed and sent to pathology. Other areas were fulgurated. - Stopped CBI per urology on 01/19. - Follow up pathology from 01/18 cystoscopy (3) Diabetes mellitus: Most recent A1c was 6.7%. - Now with hypoglycemia (had hyperglycemia with prednisone; but prednisone now discontinued). - Held Lantus - Sliding scale insulin - Dextrose infusion to maintain euglycemia -> Blood sugars jumped up to 400s in last 24 hours. Stopped dextrose infusion. Will hold off on Lantus for now given recent lows. (4) Constipation: CT a/p on 01/17 was w/o ileus or obstruction. - Cont senna & Miralax - Ongoing - but modestly improved today. Formed BM. (5) Acute blood loss anemia: 2nd to radiation cystitis & hematuria. Hgb was 11.4 at admission. - Hgb was 8.1 today. (6) Benign essential hypertension: BP has been 115-160/50-80 in the last 1-2 days. - Continue amlodipine & beta-reynaldo - Hold ARB for ALESSANDRA. (Had been ongoing). (7) Chronic kidney disease, stage IV (severe): Baseline Cr about 2.7 to 3.1. - Now with ALESSANDRA/ARF as above. 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 - See above. (9) Hypothyroidism: TSH in 12/2019 was wnl. - Cont Synthroid 100 mcg daily (10) Hyperlipidemia: - Cont statin (11) Benign prostatic hyperplasia: Rosa in place at present. - Monitor for retention after Rosa out. (12) Hemorrhoids: No active bleeding at present. - Continue Anusol cream q6h & Anusol suppository q6h PRN - Bowel maintenance (13) DVT prophylaxis: SCDs - Chemical means contraindicated in face of active urinary tract bleeding Admission and Anticipated Discharge Date Admission Date: January 13, 2020 Subjective Feeling well today. No major concerns. Very much wants to go home. Reports no fevers/chills, chest pain, shortness of breath, abdominal pain, nausea, or vomiting. Physical Exam Constitutional: WD/WN, vitals as above Eyes: EOM intact bilaterally; no conjunctival abnormality ENMT: external ear and nose normal, oropharynx normal Neck: trachea midline, no thyromegaly normal visual inspection Respiratory: normal respiratory effort, lungs clear to auscultation no respiratory distress Cardiovascular: RRR, no murmur, no edema Gastrointestinal (Abdomen): Inspection/Auscultation: abdomen normal to inspection; abdomen not distended Musculoskeletal: no cyanosis or clubbing, extremities motor strength 5/5 Skin: no rashes, warm and dry Neurologic: moves all extremities and awake Psychiatric: Orientation: alert, oriented to person and cooperative Genitourinary: + penis abnormality (Rosa in place) Results & Data Results & Data ([facility]) Vital Signs (Past 12 Hours) Vital Signs Temp Pulse Pulse Resp BP Pulse Ox 01/20/20 12:04 36.7 C 78 20 124/69 94 01/20/20 07:31 36.7 C 20 159/80 H 94 01/20/20 03:42 36.6 C 79 16 147/85 H 95 PG Care Time/CCT Total # of Minutes Spent Total Time Spent with Patient: Total time spent is greater than 50% in coordination of care (as documented) at patient's floor/unit and/or counseling patient: Coding Level of Care Code 02193 Subseq Hosp Care Lvl 2 Diagnoses Acute kidney injury N17.9 Radiation cystitis N30.40 Diabetes mellitus E11.69 Diabetes mellitus complication status: with other specified complication 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: without laborer marine terminal use Diabetes mellitus type: type 2 Constipation K59.09 Constipation type: other constipation type Acute blood loss anemia D62 Benign essential hypertension I10 Chronic kidney disease, stage IV (severe) N18.4 Malignant neoplasm of lateral wall of bladder C67.2 Hypothyroidism E03.9 Hypothyroidism type: acquired Hyperlipidemia E78.2 Hyperlipidemia type: mixed hyperlipidemia Benign prostatic hyperplasia N40.1; R33.8 Lower urinary tract symptom detail: urinary retention Lower urinary tract symptom presence: symptoms present Hemorrhoids K64.9 Hemorrhoid type: unspecified DVT prophylaxis Z29.9 (1) Benign prostatic hyperplasia Lower urinary tract symptom detail: urinary retention Lower urinary tract symptom presence: symptoms present Qualified Code(s): N40.1 - Benign prostatic hyperplasia with lower urinary tract symptoms; R33.8 - Other retention of urine (2) Diabetes mellitus Diabetes mellitus complication status: with other specified complication 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
--- NOTE | 2020-01-20 14:28 | Pharmacy Report ---
Glycemic Control Consultation - Date of Service January 20, 2020 - Scope Scope: Glycemic Pharmacist consulted for glycemic control and to write orders per [facility] inpatient glycemic control protocol. - Objective Weight: 76.4 kg Accuchecks BSG (last 24hrs): 01/19/20 01/19/20 01/19/20 17:15 17:17 20:42 Glucose POC Glucose 386 H* 387 H* 417 H* 01/19/20 01/19/20 01/20/20 20:49 23:07 00:17 Glucose POC Glucose 411 H* 329 H* 288 H 01/20/20 01/20/20 01/20/20 03:38 05:30 08:56 Glucose 111 H POC Glucose 183 H 209 H 01/20/20 11:49 Glucose POC Glucose 284 H Laboratory Data (last 24hrs): 01/20/20 05:30 Potassium 3.6 Carbon Dioxide 30 Anion Gap 8.0 Creatinine 4.92 H* D Est Cr Clr Drug Dosing 12.7 - Recent Pertinent Medications Outpatient Anti-diabetic Regimen: * Victoza 1.8 mg * A1c = 6.7 % 12/24/19 The patient is currently receiving: * Basal insulin: Lantus -- units every -- hours * Correctional Insulin: Novolog Correction per scale ACHS Goal Range: Low 110 mg/dL - High 140 mg/dL Correction Factor: 30 mg/dL/unit * Prandial insulin: Per carb ratio of 1 unit per 10 grams CHO consumed * Oral Agents: Risk Factors for Insulin Resistance: * IVF: D10 with bicarbonate @ 75 cc/hr that is changed to D5 with bicarbonate @ 75 cc/hr; now stopped * Diet: T2DM - Assessment & Plan Assessment & Plan: ASSESSMENT: * Mr Crews is a 74 y/o M with a PMH of T2DM on one injectable medication as an outpatient. * Patient's hospitalization has been complicated by hyperglycemia with steroids and then hypoglycemia once steroids stopped. Patient was started on D10W with bicarbonate for two days then blood sugars increased to over 400 mg/dL yesterday evening. Infusion was changed to D5 yesterday evening and blood sugars improved. Currently BSGs are in the 200s mg/dL. * Fasting this morning was 209 mg/dL -- did not provide Lantus due to severe lows and dextrose infusion. * Tightened Novolog to weight-based stress of 2 for lunch. * Provided d/c'ed dextrose infusion which should improve blood sugars. Expect that patient may need some Lantus (~10 units) starting tomorrow since he is on one injectable at home and HbA1C is 6.7%. PLAN FOR INPATIENT GLYCEMIC CONTROL: * Bolus insulin * NovoLog per scale ACHS or Q6hrs while NPO * Goal Range: Low 110 mg/dL - High 140 mg/dL * Correction Factor: 30 mg/dL/unit * Nutritional / Prandial insulin per carb ratio of 1 unit per 10 grams CHO consumed * Please note that the plan above was derived based on current level of insulin resistance and hospital stress. These recommendations are appropriate for inpatient admission only. Plan of care upon discharge will need to be reassessed to avoid potential outpatient hypo/hyperglycemia. Thank you.
[2020-01-20] MEDS ORDERED: LIDOCAINE 2% JELLY 5 ML TUBE EXT PRN (15:45)
[2020-01-20] MEDS: CARBOHYDRATES FOR HYPOGLYCEMIA PO PRN (17:17)
[2020-01-20] MEDS: ROSUVASTATIN CALCIUM 10 MG TAB PO SCH (17:58)
[2020-01-20] MEDS: METOPROLOL SUCC 50MG EXT REL TAB PO SCH (20:15)
[2020-01-21] MEDS: HYDROCORTISONE HC 2.5% CRM 30GM TUBE EXT SCH ×2 (02:01→10:13)
[2020-01-21] MEDS: HEPARIN 100 UNIT/ML 5ML FLUSH FLUSH PRN ×2 (05:44→11:43)
[2020-01-21] MEDS: LEVOTHYROXINE SODIUM 100 MCG TABLET PO SCH (06:16)
[2020-01-21 06:23] LABS: Hematocrit (blood only) 27.5 % (42-52); Mean Corpuscular Hemoglobin 32.1 pg (25-34); Mean Corpuscular Hgb Conc 32.7 g/dL (32-36); Mean Corpuscular Volume 98.2 fL (80-100); Platelet Count 238 K/uL (130-400); RDW Standard Deviation 56.2 fL (36.4-46.3); White Blood Count 12.84 K/uL (4.8-10.8)
[2020-01-21 06:45] LABS: BUN Creatinine Ratio 14.9 (10-20); Calcium 7.8 mg/dl (8.5-10.1); Creatinine Clr Calc Pharmacy 14.8 ml/min; Est GFR (African American) 15.2; Est GFR (Non-African American) 13.1; Magnesium 2.2 mg/dl (1.8-2.4); Potassium 3.6 mmol/L (3.5-5.1)
[2020-01-21] MEDS ORDERED: INSULIN GLARGINE SOLOSTAR 100 UNITS/ML 3 ML PEN SC SCH (09:00)
--- NOTE | 2020-01-21 09:39 | Nephrology Progress Note ---
Date of Service January 21, 2020 Assessment & Plan (1) Acute kidney injury: * Obstructive uropathy due to bladder CA (h/o chemo, rad tx) * Required follow up cystoscopy 01/18 w/ evacuation of clot * Cr continues to trend down (Cr 4.9 --> 4.2) * Remains on CBI * Volume status and electrolyte balance remain acceptable at this time (2) Chronic kidney disease, stage IV (severe): * CKD IV A3 w/ baseline Cr 2.6 - 3.2 mg/dL due to secondary FSGS and/or di abetic nephropathy (3) Acute blood loss anemia: * H/H stable * Tsat 31 and ferritin 106. One dose IV iron administered 01/20/20 * Epogen 20,000 units SQ admin 01/18/20 (4) Benign essential hypertension: * Continue to hold Valsartan * BP acceptable at this time. No change to current BP regimen Admission and Anticipated Discharge Date Admission Date: January 13, 2020 Subjective Mr. Crews was seen & examined in his hospital room this morning. CBI continues. Blood tinged urine is present in ortiz collection bag. Mr. Crews voices no medical concerns. Review of Systems Constitutional: no fever Eyes: no problem reported Ear, Nose, Mouth, Throat: no problem reported Respiratory: no dyspnea Cardiovascular: no chest pain and no edema Gastrointestinal: no abdominal pain and no diarrhea/loose stools Musculoskeletal: no back pain Integumentary: no rash Neurologic: no dizziness and no confusion Physical Exam Constitutional: not in distress Eyes: PERRL, conjunctivae normal, anicteric sclerae PERRL and EOM intact bilaterally ENMT: external ear and nose normal, oropharynx normal Neck: trachea midline, no thyromegaly Respiratory: normal respiratory effort, lungs clear to auscultation Cardiovascular: RRR, no murmur, no edema Gastrointestinal (Abdomen): normal bowel sounds, soft, nontender, no hepatosplenomegaly Musculoskeletal: no cyanosis or clubbing, extremities motor strength 5/5 Extremities: no cyanosis Skin: no rashes, warm and dry Neurologic: awake; not confused Results & Data ([facility]) Vital Signs (Past 12 Hours) Vital Signs Temp Pulse Resp BP Pulse Ox 01/21/20 08:43 36.7 C 99 H 22 143/71 H 88 L 09/27/20 23:22 37.1 C 93 H 20 131/71 91 Laboratory Results Laboratory Tests 01/21/20 01/21/20 05:44 05:44 WBC 12.84 H Hgb 9.0 L Hct 27.5 L Plt Count 238 Sodium 147 H Potassium 3.6 Chloride 109 H Carbon Dioxide 32 BUN 63 H Creatinine 4.22 H D Glucose 215 H PG Care Time/CCT Total # of Minutes Spent Total Time Spent with Patient: Total time spent is greater than 50% in coordination of care (as documented) at patient's floor/unit and/or counseling patient: Coding Level of Care Code 23647 Subseq Hosp Care Lvl 3 Diagnoses Acute kidney injury N17.9 Chronic kidney disease, stage IV (severe) N18.4 Acute blood loss anemia D62 Benign essential hypertension I10
[2020-01-21] MEDS: SENNA 8.6 MG TAB PO SCH (10:04)
[2020-01-21] MEDS: POLYETHYLENE (MIRALAX) 17 GM PACK PO SCH (10:04)
[2020-01-21] MEDS: CYANOCOBALAMIN 500 MCG TABLET (VITAMIN B-12) PO SCH (10:05)
[2020-01-21] MEDS: allopurinoL 300 MG TAB PO SCH (10:05)
[2020-01-21] MEDS: AMLODIPINE BESYLATE 5 MG TAB PO SCH (10:05)
[2020-01-21] MEDS: INSULIN ASPART 100 UNITS/ML 3 ML PEN SC SCH ×2 (10:08→13:12)
--- NOTE | 2020-01-21 12:12 | Pharmacy Report ---
Pharmacy Glycemic Short Note 2 - Date of Service January 21, 2020 - Glycemic Short BSG Results (Last 24 hours): OUTPATIENT ANTIDIABETIC REGIMEN: * Victoza 1.8 mg * A1c = 6.7% 12/24/19 ASSESSMENT: 01/20: * BSGs elevated yesterday with exception of dinner: [phone] mg/dL * Received a total of 18 units of insulin yesterday (all bolus) * Patient had a hypoglycemic event at dinner time when BSG was 59 mg/dL. Treated with 15 gm CHO and BSG improved to 74 mg/dL. Patient does appear to be very labile. Believe hypoglycemia may have occurred secondary to stacking of Novolog doses as AM dose was administered a little later than usual. Spoke with attending physician today regarding patient and BSG control. * Fasting BSG this AM was uncontrolled at 208 mg/dL. * Planned to give a small dose of basal insulin but order was discontinued by attending. After discussion, will monitor BSGs throughout today and if they would continue to trend upwards then attending is okay with a small Lantus dose. * Lunchtime BSG was elevated at 255 mg/dL. 01/19: * Mr Cerws is a 74 y/o M with a PMH of T2DM on one injectable medication as an outpatient. * Patient's hospitalization has been complicated by hyperglycemia with steroids and then hypoglycemia once steroids stopped. Patient was started on D10W with bicarbonate for two days then blood sugars increased to over 400 mg/dL yesterday evening. Infusion was changed to D5 yesterday evening and blood sugars improved. Currently BSGs are in the 200s mg/dL. * Fasting this morning was 209 mg/dL -- did not provide Lantus due to severe lows and dextrose infusion. * Tightened Novolog to weight-based stress of 2 for lunch. * Provided d/c'ed dextrose infusion which should improve blood sugars. Expect that patient may need some Lantus (~10 units) starting tomorrow since he is on one injectable at home and HbA1C is 6.7%. PLAN FOR INPATIENT GLYCEMIC CONTROL: * Basal insulin - initiated * Lantus 10 units SQ x 1 * Bolus insulin - tightened CF/CR * NovoLog per scale ACHS or Q6hrs while NPO * Goal Range: Low 110 mg/dL - High 140 mg/dL * Correction Factor: 30 mg/dL/unit * Nutritional / Prandial insulin per carb ratio of 1 unit per 10 grams CHO consumed PLAN FOR DISCHARGE: * A1c of 6.7% demonstrates excellent outpatient control of T2DM on Victoza monotherapy. * Given age and comorbidities, would recommend a goal A1c < 8.0%. * Continue Victoza monotherapy upon discharge. Patient should SMBG at least 2 x day and follow up with PCP closely in the event that patient begins to have hypoglycemia.
[2020-01-21] MEDS ORDERED: INSULIN GLARGINE SOLOSTAR 100 UNITS/ML 3 ML PEN SC ONE (12:45)
[2020-01-21 15:14] VITALS: BP 165/77; PULSE 85; TEMP 98.2; O2SAT 97
--- NOTE | 2020-01-21 16:34 | Urology Progress Note ---
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 -Patient status post cystoscopy, clot evacuation, fulguration, and TURP/TURBT (bladder neck) on 01/[address] Piper. -He is clinically progressing post procedure. -Creatinine has improved, does have an outpatient follow-up scheduled with nephrology. -Rosa catheter discontinued today, voiding spontaneously. Discussed signs/symptoms to monitor for after discharge. -Will arrange outpatient follow-up with urology service for continued care. -Patient planning to be discharged this evening. -He is agreeable to monitor symptoms closely and call the office with any changes/worsening of symptoms post discharge. Admission and Anticipated Discharge Date Admission Date: January 13, 2020 Subjective Patient status post cystoscopy, clot evacuation, fulguration, and TURP/TURBT (bladder neck) on 01/[address] Piper. Patient feeling good overall. Denies fevers or chills. Denies nausea or vomiting. No reported flank pain. Rosa catheter was removed today, patient has been voiding small amounts of yellow/pink tinged urine. PVRs after voiding were minimal. Does report some dysuria and hesitancy, otherwise voiding okay. He is anxious to go home this evening, discharged by primary team. Chart review: Afebrile. Wbc 12.84 (previously 11.38) Hgb 9.0 (previously 8.1) Creatinine 4.22 (previously 4.92) Denies additional urologic concerns today. Review of Systems Constitutional: as per Subjective / HPI; no fever and no chills Gastrointestinal: as per Subjective / HPI; no nausea and no vomiting Genitourinary: + as per Subjective / HPI Physical Exam Constitutional: well developed and well nourished; no acute distress and not ill appearing Respiratory: normal respiratory effort and able to speak in complete sentences; no respiratory distress and no audible wheezes Gastrointestinal (Abdomen): Inspection/Auscultation: abdomen normal to inspection; abdomen not distended Percussion/Palpation: abdomen soft; abdomen nontender and no guarding Psychiatric: Orientation: alert, oriented x 3 and cooperative Affect: euthymic affect Genitourinary: no CVA tenderness Urine clear yellow, slightly pink-tinged. No visible clots. Results & Data ([facility]) Vital Signs (Past 12 Hours) Vital Signs Temp Pulse Pulse Resp BP Pulse Ox 01/21/20 15:26 36.8 C 78 85 18 165/77 H 97 01/21/20 15:14 36.8 C 85 18 165/77 H 97 01/21/20 10:02 71 163/85 H 01/21/20 08:43 36.7 C 99 H 22 143/71 H 88 L PG Care Time/CCT Total # of Minutes Spent Total Time Spent with Patient: Total time spent is greater than 50% in c oordination of care (as documented) at patient's floor/unit and/or counseling patient: Coding Level of Care Code 81697 Subseq Hosp Care Lvl 2 Diagnoses Hematuria R31.0 Hematuria type: gross Radiation cystitis N30.40 (1) Hematuria Hematuria type: gross Qualified Code(s): R31.0 - Gross hematuria
--- NOTE | 2020-01-21 16:51 | Discharge Summary ---
Date of Service January 21, 2020 Admission HPI Per Admitting Provider 74-year-old male with past medical history hyperlipidemia, coronary artery disease, hypertension, hypothyroidism, type 2 diabetes, chronic kidney disease stage IV, gout, BPH, T2 bladder cancer with TURBT in December 2017 and chemoradiation presents with concerns of hematuria and inability to void. Patient was seen by urology Dr. Awan on January 07, 2020 for cystoscopy (showing radiation cystitis, no papillary tumors, no active bleeding) for recurrent bleeding. Patient noted small amount of blood on rare occasions. Before in the prior several months he was well controlled. Earlier this year he had cauterization secondary to refractory bleeding. Since the cystoscopy patient notes ongoing worsening hematuria. Today patient noted an inability to urinate with last urination occurring about 4 PM, which prompted ER visit. Patient notes associated nausea when attempting to urinate and had some diarrhea in the ED. Patient otherwise denies any fevers, chills, sweats, dysuria, urinary urgency/frequency, other urethral discharge, abdominal pain, chest pain, shortness of breath, known sick contacts or recent travel anywhere. Patient with no other acute concerns or complaints. No pelvic injury. Recent CT on 12/24/19 showed: 2 sclerotic lesions in the bony pelvis that were highly concerning for osseous metastatic disease. Most recent PSA was 0.551 on 01/04/20. PET scan 01/07/20 showed: Mildly enlarged 12 mm FDG avid AP window lymph node and bilateral FDG avid adrenal nodules. No evidence of FDG avid abdominal or pelvic lymphadenopathy. The preceding described sclerotic skeletal lesions are not FDG avid. Plan was for patient to follow-up with oncology later this week, but this has not occurred yet. Pertinent labs: Hemoglobin 11.4, BUN 60, creatinine 3.76, glucose 176, otherwise largely unremarkable UA: 3+ blood, >30 RBC ER course: Rosa placed draining large amount of urine after bladder scan showed 240 mL of urine Social history: Tobacco1/2 pack/day smoker. Denies any alcohol or illicit drug use. Principal Diagnosis Radiation cystitis Discharge Exam Constitutional WD/WN, vitals as above Eyes EOM intact bilaterally; no conjunctival abnormality ENMT external ear and nose normal, oropharynx normal Neck trachea midline, no thyromegaly normal visual inspection Respiratory normal respiratory effort, lungs clear to auscultation no respiratory distress Cardiovascular RRR, no murmur, no edema Gastrointestinal (Abdomen) Inspection/Auscultation: abdomen normal to inspection; abdomen not distended Musculoskeletal no cyanosis or clubbing, extremities motor strength 5/5 Skin no rashes, warm and dry Neurologic moves all extremities and awake Psychiatric Orientation: alert, oriented to person and cooperative Genitourinary + penis abnormality (Rosa in place) Discharge Data Allergies Allergy/AdvReac Type Severity Reaction Status Date / Time Iodinated Contrast Media AdvReac Intermediate Hypertensio Verified 01/21/20 07:33 n atorvastatin [From Lipitor] AdvReac Mild muscle Verified 01/21/20 07:33 aches Consultations 01/13/20 03:58 ED Decision to Admit Stat 01/13/20 06:35 Consult Oncology Routine Consult Urology Routine 01/17/20 08:22 Consult Nephrology Routine Procedures Performed Operation Date: 01/19/20 10:30 Actual Procedures s Cystoscopy, clot evacuation, Fulguration, (Not Applicable) - Santosh Ppier DO p TURP(Not Applicable) - Santosh Piper DO Ordered Studies 01/16/20 14:00 US renal/blad retro comp Routine 01/18/20 09:56 CT abd pelvis wo con Stat Hospital Course (1) Acute kidney injury: Baseline Cr 2-3. - Peaked at 5.8 on 01/17 - Renal u/s on 01/16/20 - no hydronephrosis despite the issues with bladder. - By discharge, down to 4.2 with normal Bicarb. Nephrology was ok with discharge and follow up BMP as outpatient. Making good urine. 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 - S/p cystoscopy and clot evacuation by Dr. Piper on 01/18. Per operative note, there was considerable areas of ulceration and one area was removed and sent to pathology. Other areas were fulgurated. - Stopped CBI per urology on 01/19. - Follow up pathology from 01/18 cystoscopy - On 01/20, catheter was removed with urology approval. He was able to void without issue. PVR was 25 mL after void. He very much wanted to go home, and specialists agreed it was acceptable to discharge. He will follow up with urology in the office. (3) Diabetes mellitus: Most recent A1c was 6.7%. - Had very high ups and downs as his Lantus was adjusted. In the end, given his great A1c, no change on discharge. (4) Constipation: CT a/p on 01/17 was w/o ileus or obstruction. - Cont senna & Miralax - Ongoing - but modestly improved today. Formed BM. (5) Acute blood loss anemia: 2nd to radiation cystitis & hematuria. Hgb was 11.4 at admission. - Hgb was 9.0 on discharge. No indication that bleeding was fast enough to require transfusion, and bleeding was improving by discharge. (6) Benign essential hypertension: BP has been 115-160/50-80 in the last 1-2 days. - Continue amlodipine & beta-reynaldo - Held ARB for ALESSANDRA; can restart on discharge. (7) Chronic kidney disease, stage IV (severe): Baseline Cr about 2.7 to 3.1. - Now with ALESSANDRA/ARF as above. 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 - See above. (9) Hypothyroidism: TSH in 12/2019 was wnl. - Cont Synthroid 100 mcg daily (10) Hyperlipidemia: - Cont statin (11) Benign prostatic hyperplasia: Rosa in place at present. - No retention after removal of catheter. (12) Hemorrhoids: No active bleeding at present. - Continue Anusol cream q6h & Anusol suppository q6h PRN - Bowel maintenance (13) DVT prophylaxis: SCDs - Chemical means contraindicated in face of active urinary tract bleeding Total Time Total Time Spent Total Time Spent (In Minutes): 35 Total Time Includes: Examination of the Patient, Discharge Planning, Medication Reconciliation and Communication With Other Providers Discharge Plan Discharge Items Patient Disposition: Home - Self-Care Reason For Visit: HEMATURIA Discharge Diagnosis: Radiation cystitis / irritation of the bladder from radiation treatment Activity: Resume your previous activity Non-emergency contact: Primary Care Provider and Urologist Call non-emergency contact if: your symptoms worsen, your pain is not controlled and your temperature is above 101 Follow-up/Referrals: Lennox Awan MD [Family Provider] - (A community advocate from [facility] will be in touch with you to inform you of your upcoming appt. Office was closed at your time of discharge.) Hilda Berry MD [Primary Care Provider] - 01/25/20 11:30 am () Cody Garcia DO [Physician] - 01/25/20 3:20 pm (Please see Dr. Garcia in 2 weeks for a kidney check.) Diet: Carb Consistent or DM2 Addtl Attending Provider Instructions: Mr. Crews, You were admitted to the hospital with blood in the urine. This was caused by irritation of your bladder from your prior radiation treatments. Dr. Piper removed quite a bit of blood clot from your bladder and tried to remove some of the inflamed/irritated tissue. Please follow up with Dr. Piper or another provider in the urology office in the next 1-2 weeks to be sure your bladder is healing well. Please hold your baby aspirin (81 mg) for now until you are cleared by Dr. Awan or Dr. Piper to restart it. We wouldn't want it to cause more bladder bleeding. If you stop urinating, have more suprapubic pain, start having darker red urine (more bleeding), please call their office right away or come back to the hospital. Please follow up with Dr. Garcia in 2 weeks to check on your kidneys. Pending Studies at Discharge: Yes Studies:: Bladder tissue results Stand-Alone Forms: My [facility] [employer] Apps, Smoking Cessation Medications and DC Order Prescriptions: Continued allopurinol 300 mg tablet 300 mg PO QAM Qty: 90 RF: 3 valsartan 160 mg tablet 160 mg PO QAM Qty: 90 RF: 3 Hold Instructions: Home Medication placed on hold at Doctor's office metoprolol succinate 100 mg tablet extended release 24 hr 100 mg PO QPM Qty: 90 RF: 3 (DME) lancets [OneTouch Delica Lancets] 33 gauge misc See Dose Instructions .ROUTE .MEDSUPPLY Qty: 100 RF: 5 levothyroxine [Synthroid] 100 mcg tablet 100 mcg PO DAILY Qty: 90 RF: 3 (DME) OneTouch Verio test strips Strip See Dose Instructions .ROUTE .MEDSUPPLY Qty: 100 RF: 5 rosuvastatin 20 mg tablet 20 mg PO DAILY Qty: 90 RF: 3 Trulicity 0.75 mg/0.5 mL pen injector 0.75 mg SQ WEEKLY Qty: 2 RF: 0 amlodipine 2.5 mg tablet 2.5 mg PO DAILY@18 RF: 0 albuterol sulfate 90 mcg/actuation Hfa Aerosol Inhaler 2 puff INHALATION Q6H PRN (Reason: Wheezing) RF: 0 Discontinued aspirin 81 mg Tablet,Delayed Release (Dr/Ec) 81 mg PO QAM RF: 0 Discharge Orders: Discharge Order (Routine); Ordered 01/21/20 Ordered By: Raymond Ornelas Admission Data Admit Date/Time: 01/13/20 05:37 Attending Provider: Raymond Ornelas Admit Provider: Wilfrido Montero Primary Care Provider: Hilda Berry Other Providers: Raymond Ornelas ; Arun Cobb ; Lon Khan ; Nancy Mas ; Cody Garica Other Interventions: Discharge Summary Assessment (RN) Last Done: 01/21/20 15:26 Coding Level of Care Code D/C Day Management >30 mins Diagnoses Acute kidney injury N17.9 Radiation cystitis N30.40 Diabetes mellitus E11.69 Diabetes mellitus type: type 2 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: without c2 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 technician use Diabetes mellitus complication status: with other specified complication Constipation K59.09 Constipation type: other constipation type Acute blood loss anemia D62 Benign essential hypertension I10 Chronic kidney disease, stage IV (severe) N18.4 Malignant neoplasm of lateral wall of bladder C67.2 Hypothyroidism E03.9 Hypothyroidism type: acquired Hyperlipidemia E78.2 Hyperlipidemia type: mixed hyperlipidemia Benign prostatic hyperplasia N40.1; R33.8 Lower urinary tract symptom presence: symptoms present Lower urinary tract symptom detail: urinary retention Hemorrhoids K64.9 Hemorrhoid type: unspecified DVT prophylaxis Z29.9
== END 2020-01-21 16:43 | disposition home or self-care (01) | DRG 665 ==
LOC: ED 00:45 → 3N 05:37 → SUATTDRO 05:37 → 3N 06:20

== ENCOUNTER 2021-02-02 12:38 | Observation (INO) ==
[2021-02-02] MEDS ORDERED: STAT IV Infusion **Titration per Protocol STA (13:00)
[2021-02-02] MEDS ORDERED: dilTIAZem HCl 5 MG/ML 5 ML VIAL IV STA (13:00)
[2021-02-02] MEDS ORDERED: SODIUM CHLORIDE 0.9% 1000ML 500 ML IV ONE ×2 (13:00→13:44)
[2021-02-02] MEDS: dilTIAZem HCL 125 MG in DEXTROSE 5% 100 ML IV SCH ×2 (13:15→21:11)
--- NOTE | 2021-02-02 13:35 | Emergency Department Note ---
Impression & Plan Atrial fibrillation with rapid ventricular response, Acute dehydration, Neutropenia, Anemia, Hypomagnesemia ED Provider Note NAME: JORGE CHOI AGE: 75 SEX: M : 1945 ARRIVES VIA: Walk-In INFORMANT: [Patient][family] ED PROVIDER(S): [Jun Mays MD] CHIEF COMPLAINT: Weakness HISTORY OF PRESENT ILLNESS: The patient is a 75-year-old male who presents to the ED with 5 days of fatigue, weakness and exertional shortness of breath. He has had some nausea. He is undergoing chemotherapy for bladder cancer. Last chemo was on 21 January, around 12 days ago. The patient feels his heart race at times with exertion. He has no chest pain. He has had no cough or cold or congestion. No diarrhea. The patient thinks the chemotherapy has put him down. His thinks he is dehydrated. The patient was at the [facility]. He received IV Zofran for nausea, he was given 1 L of IV saline, he was referred to the ED. He was noted to be tachycardic at the [facility]. Of note, the patient is vaccinated against COVID-19, no recent exposures. REVIEW OF SYSTEMS: See HPI for pertinent positives and negatives. A total of ten systems were reviewed and were otherwise negative. PMHx/PSHx: See Below SOCIAL HISTORY: See Below. PHYSICAL EXAM: GENERAL: Patient is in no acute distress. HEENT: No acute trauma, normocephalic atraumatic, mucous membranes dry, no nasal congestion, no scleral icterus. NECK: No stridor, no adenopathy, no meningismus, trachea is midline. LUNGS: Clear to auscultation bilaterally, no wheeze, no rhonchi, breath sounds equal. HEART: Tachycardic and irregular, no murmurs. ABDOMEN: Soft, nontender, bowel sounds positive, no hernias, no peritonitis. EXTREMITIES: No cyanosis or edema, full range of motion of all the joints without pain or difficulty, no signs for acute trauma. NEUROLOGIC: Oriented x 3, no acute motor or sensory deficits, no focal weakness. SKIN: No rash, no jaundice, no diaphoresis. DIFFERENTIAL DIAGNOSIS: Infection, dehydration, metabolic abnormality, hypo/hyperglycemia, electrolyte disturbance, anemia, hypoxia, cardiac sources, atrial fibrillation, SVT, atrial flutter, intracerebral event, toxicologic issues, stroke, TIA, as well as other pathologies. EMERGENCY DEPARTMENT COURSE/PROCEDURES: ECG: Indication was tachycardia. The ECG shows a rapid atrial fibrillation. The rate is 168. There is no ST elevation, no PVCs. The QTc is 488. Continuous Cardiac Monitoring: An order was placed for continuous cardiac monitoring. The monitor shows a rate of 145 with rapid atrial fibrillation. Critical Care Note: I have personally spent 45 minutes of critical care time in the direct management of this patient. This includes bedside care, interpretation of diagnostic studies, and testing, discussion with consultants, patient, and family members, and other required patient management activities. This 45 minutes is in excess of all separately billable procedures. MEDICAL DECISION MAKING: The patient does have a low white count, he is neutropenic, likely from his chemotherapy. He has a low hemoglobin as well, again likely from his chemotherapy. His platelet count was normal. No coagulopathy. Renal panel testing shows an elevation to the creatinine, he does have renal insufficiency but today's value is slightly higher than baseline--I suspect he is dehydrated. Calcium and magnesium were both somewhat low. ECG showed a rapid atrial fibr illation, no acute ischemia. Chest film did not show pneumonia or CHF. No concerning liver enzyme elevation. The patient appeared to be in a euthyroid state. Cardiac troponin testing did return slightly elevated, this certainly would be consistent with cardiac injury or strain from the rapid atrial fibrillation. Covid testing returned negative. The patient had received some IV saline prior to arrival. He received additional IV saline while here in the ER, I ordered for 1 L. Patient was given IV magnesium. He was given a bolus of IV diltiazem and placed on a diltiazem drip. The patient has improved with the above medications. His heart rate has improved. I do think a hospital stay is warranted. He has new onset atrial fibrillation. He is dehydrated. He is neutropenic and anemic. I did speak with the patient and case management. The on-call hospitalist has been consulted. 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 CAD (coronary atherosclerotic disease) Cancer HX BLADDER CANCER SURGERY-CHEMO/RADIATION [facility] 2017 Chronic obstructive pulmonary disease Diabetes mellitus, type 2 Generalized osteoarthritis of multiple sites Gout Hearing loss History of stroke without residual deficits OCCURRED DURING AAA REPAIR [facility] 5-6 YRS 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-NO ISSUES SINCE Hyperlipidemia Hypothyroidism Insomnia Kidney stones Passed x1 Malignant neoplasm of lateral wall of bladder (01/16/18) Past myocardial infarction Port-A-Cath in place CURRENT FUNCTIONING A-PORT IN PLACE Secondary hyperparathyroidism Vitamin D deficiency Surgical History H/O arthroscopy of knee H/O colonoscopy History of biopsy of bladder History of cardiac cath NO STENTS (~10 YEARS AGO)-NO ISSUES SINCE History of carpal tunnel release RIGHT History of cataract surgery BILATERAL History of cystoscopy History of lymph node biopsy S/P AAA (abdominal aortic aneurysm) repair Status post biopsy of kidney Family History Grandfather , in his eighties No problems noted. Grandmother , young cause unknown No problems noted. Grandfather , in his eighties No problems noted. Grandmother , did have breast cancer but in her eighties of unknown cause No problems noted. Father , He in his sixties had had three strokes and high blood pressure He had had a kidney removed perhaps from cancer Stroke Mother , in her mid seventies complications from smoking No problems noted. Daughter Age: 49 No problems noted. Daughter Age: 46 No problems noted. Daughter Age: 42 No problems noted. Brother , at age 7 of a stroke Stroke Other No family history of adverse response to anesthesia No family history of bleeding disorder Social History Smoking Status: Current some day smoker Tobacco Type: Cigarettes Age Started Using Tobacco: 10; packs per day: 0.5; Cigarettes Per Day: 10; Second Hand Exposure: Yes (Both parents smoked); Hx Alcohol Use: No Hx Substance Use: No Preferred Language: Czech Communication Ability: Effective Visual Impairment: Partially Limited Hearing Ability: Use of Hearing Aid Master Yacht Required: No Beliefs That Will Affect Care: None marital status: Current Living Situation: Alone current occupational status: retired How many Children do You have: 3 Feels Safe at Home: Yes Childhood Exposure to Second-Hand Smoke: Yes (Both parents smoked ) Diet Comment: Diabetic diet caffeine: Yes (Coffee tea) during the past year weight has: remained stable Dental Care, Regularly: No Physical Activity Frequency: Does not Exercise Seatbelt Use: always Sunscreen Use: No Do you think of yourself as: straight/heterosexual Assistive Devices: Denture - Upper, Denture - Lower, Glasses and Hearing Aid - Bilateral Allergies Allergies Allergy/AdvReac Type Severity Reaction Status Date / Time Iodinated Contrast Media AdvReac Intermediate Hypertensio Verified 02/02/21 14:31 n atorvastatin [From Lipitor] AdvReac Mild muscle Verified 02/02/21 14:31 aches Home Meds Home Medications Medication Instructions Recorded Confirmed calcitriol 0.25 mcg capsule 0.25 mcg PO UD 02/02/21 02/02/21 cinacalcet 30 mg tablet (Sensipar) 30 mg PO UD 02/02/21 02/02/21 Previous Rx's Medication Instructions Recorded dulaglutide 0.75 mg/0.5 mL 0.75 mg SQ WEEKLY #2 ml 09/19/19 subcutaneous pen injector (Trulicity) allopurinol 300 mg tablet 300 mg PO QAM #90 tab 03/11/20 albuterol sulfate 90 mcg/actuation 2 puff INHALATION QID PRN #18 g 05/22/20 aerosol inhaler (Ventolin HFA) metoprolol succinate 100 mg 100 mg PO QPM #90 tab 07/22/20 tablet,extended release 24 hr vitamin B complex-vitamin C-folic 1 tab PO DAILY #90 tab 08/29/20 acid 0.8 mg tablet (Nephro-Abbie) levothyroxine 100 mcg tablet 100 mcg PO DAILY #90 tab 09/26/20 (Synthroid) amlodipine 10 mg tablet 10 mg PO DAILY #90 tab 12/03/20 rosuvastatin 20 mg tablet 20 mg PO DAILY #90 tab 12/17/20 Results & Data (ED) Vital Signs Vital Signs - 24 hr 02/02/21 12:48 02/02/21 13:50 02/02/21 13:51 Temperature 36.6 C Temperature Source Temporal Artery Scan Oral Pulse Rate 168 H Pulse Rate [Right Finger] Pulse Rhythm Irregular Pulse Rhythm [Right Finger] Pulse Strength [Right Finger] Respiratory Rate 18 Respiratory Effort / Characteristics Spontaneous Respiratory Depth Respiratory Pattern Regular Blood Pressure 108/69 Blood Pressure [Right Arm] Blood Pressure Mean 82 Blood Pressure Mean [Right Arm] Blood Pressure Position [Right Arm] Pulse Oximetry 96 Oxygen Delivery Method Room Air Room Air Room Air Sepsis Recent Fever Within 48 Hours No Sepsis New/Unexplained Change in Mental Status No Sepsis Action Taken by Nursing No Action Required 02/02/21 15:00 Temperature Temperature Source Pulse Rate Pulse Rate [Right Finger] 120 H Pulse Rhythm Pulse Rhythm [Right Finger] Irregular Pulse Strength [Right Finger] Normal Respiratory Rate 16 Respiratory Effort / Characteristics Non-Labored Respiratory Depth Normal Respiratory Pattern Regular Blood Pressure Blood Pressure [Right Arm] 122/79 Blood Pressure Mean Blood Pressure Mean [Right Arm] 93 Blood Pressure Position [Right Arm] Lying Pulse Oximetry 96 Oxygen Delivery Method Room Air Sepsis Recent Fever Within 48 Hours Sepsis New/Unexplained Change in Mental Status Sepsis Action Taken by Snf Medications Current Medication List: was personally reviewed by me Laboratory Data Attestation: I reviewed the patient's lab results. Result diagrams: 02/02/21 14:15 02/02/21 14:15 Lab Results 02/02/21 02/02/21 02/02/21 Range/Units 13:49 13:49 14:15 WBC 0.99 L* (4.8-10.8) K/uL RBC 2.22 L (4.7-6.1) M/uL Hgb 7.3 L (14.0-18.0) g/dL Hct 21.3 L (42-52) % MCV 95.9 (80-100) fL MCH 32.9 (25-34) pg MCHC 34.3 (32-36) g/dL RDW Std Deviation 47.1 H (36.4-46.3) fL RDW Coeff of Josie 13.6 (11.5-14.5) % Plt Count 177 (130-400) K/uL MPV 10.2 (7.4-10.4) fL Absolute Nucleated RBC 0.10 H (0-0) K/uL Nucleated RBC % (auto) 10.4 % Neutrophils % (Manual) 64.2 % Lymphocytes % (Manual) 11.9 % Monocytes % (Manual) 16.4 % Basophils % (Manual) 1.5 % Metamyelocytes % (Man) 1.5 % Myelocytes % (Man) 1.5 % Blast Cells % (Manual) 3.0 % Neutrophils # (Manual) 0.64 L (1.4-6.5) K/uL Total Absolute Neuts 0.64 L* (1.4-6.5) K/uL Lymphocytes # (Manual) 0.12 L (1.2-3.4) K/uL Total Abs Lymphocytes 0.12 L (1.2-3.4) K/uL Monocytes # (Manual) 0.16 (0.11-0.59) K/uL Basophils # (Manual) 0.01 (0-0.2) K/uL Metamyelocytes # (Man) 0.01 H (0-0) K/uL Myelocytes # (Manual) 0.01 H (0-0) K/uL Blast Cells # (Man) 0.03 H (0-0) K/uL Dohle Bodies 1+ Giant Platelets 1+ PT (9.0-12.0) Seconds INR (0.9-1.1) APTT (21.0-31.0) Seconds PTT Ratio Sodium (136-145) mmol/L Potassium (3.5-5.1) mmol/L Chloride (98-107) mmol/L Carbon Dioxide (21-32) mmol/L Anion Gap (3-11) BUN (7-18) mg/dl Creatinine (0.6-1.4) mg/dl Est Cr Clr Drug Dosing Est GFR ( Amer) ml/min Est GFR (Non-Af Amer) ml/min BUN/Creatinine Ratio (10-20) Glucose (70-99) mg/dl Calcium (8.5-10.1) mg/dl Magnesium (1.8-2.4) mg/dl Total Bilirubin (0.2-1) mg/dl AST (15-37) U/L ALT (12-78) U/L Alkaline Phosphatase (45-117) U/L Troponin I (0-0.045) ng/ml Total Protein (6.4-8.2) gm/dl Albumin (3.4-5.0) gm/dl Globulin (2.5-4.0) gm/dl Albumin/Globulin Ratio (0.9-2) TSH (0.300-4.500) uIu/ml COVID-19 Eval Order Covid19 at [facility] SARS-CoV-2 (PCR) NEGATIVE (Negative) 02/02/21 02/02/21 Range/Units 14:15 14:15 WBC (4.8-10.8) K/uL RBC (4.7-6.1) M/uL Hgb (14.0-18.0) g/dL Hct (42-52) % MCV (80-100) fL MCH (25-34) pg MCHC (32-36) g/dL RDW Std Deviation (36.4-46.3) fL RDW Coeff of Josie (11.5-14.5) % Plt Count (130-400) K/uL MPV (7.4-10.4) fL Absolute Nucleated RBC (0-0) K/uL Nucleated RBC % (auto) % Neutrophils % (Manual) % Lymphocytes % (Manual) % Monocytes % (Manual) % Basophils % (Manual) % Metamyelocytes % (Man) % Myelocytes % (Man) % Blast Cells % (Manual) % Neutrophils # (Manual) (1.4-6.5) K/uL Total Absolute Neuts (1.4-6.5) K/uL Lymphocytes # (Manual) (1.2-3.4) K/uL Total Abs Lymphocytes (1.2-3.4) K/uL Monocytes # (Manual) (0.11-0.59) K/uL Basophils # (Manual) (0-0.2) K/uL Metamyelocytes # (Man) (0-0) K/uL Myelocytes # (Manual) (0-0) K/uL Blast Cells # (Man) (0-0) K/uL Dohle Bodies Giant Platelets PT 10.6 (9.0-12.0) Seconds INR 1.0 (0.9-1.1) APTT 34.7 H (21.0-31.0) Seconds PTT Ratio 1.3 Sodium 141 (136-145) mmol/L Potassium 4.4 (3.5-5.1) mmol/L Chloride 115 H (98-107) mmol/L Carbon Dioxide 19 L (21-32) mmol/L Anion Gap 7.0 (3-11) BUN 43 H (7-18) mg/dl Creatinine 3.69 H D (0.6-1.4) mg/dl Est Cr Clr Drug Dosing Not Reportable Est GFR ( Amer) 17.8 ml/min Est GFR (Non-Af Amer) 15.3 ml/min BUN/Creatinine Ratio 11.6 (10-20) Glucose 212 H (70-99) mg/dl Calcium 7.9 L (8.5-10.1) mg/dl Magnesium 1.7 L (1.8-2.4) mg/dl Total Bilirubin 0.3 (0.2-1) mg/dl AST 22 (15-37) U/L ALT 42 (12-78) U/L Alkaline Phosphatase 74 (45-117) U/L Troponin I 0.154 H* (0-0.045) ng/ml Total Protein 5.8 L (6.4-8.2) gm/dl Albumin 1.9 L (3.4-5.0) gm/dl Globulin 3.9 (2.5-4.0) gm/dl Albumin/Globulin Ratio 0.5 L (0.9-2) TSH 1.380 (0.300-4.500) uIu/ml COVID-19 Eval Order SARS-CoV-2 (PCR) (Negative) Administered Medications Diltiazem HCl 125 mg/ Dextrose 125 mls @ 10 mls/hr IV .[id number] [facility]; Protocol Stop: 03/04/21 12:59 Last Titration: 02/02/21 14:16 Dose: 15 mg/hr, 15 mls/hr Documented by: [id number] Cosigned by: [id number] Titration: 02/02/21 13:20 Dose: 10 mg/hr, 10 mls/hr Documented by: [id number] Cosigned by: [id number] Admin: 02/02/21 13:15 Dose: 5 mg/hr, 5 mls/hr Documented by: [id number] Cosigned by: [id number] Discontinued Medications Diltiazem HCl (Diltiazem Hcl 5 Mg/Ml 5 Ml Vial) 15 mg IV NOW STA Stop: 02/02/21 13:01 Last Admin: 02/02/21 13:05 Dose: 15 mg Documented by: [id number] Cosigned by: [id number] Sodium Chloride (Nss 1000ml) 500 mls @ 999 mls/hr IV .Q31M ONE Stop: 02/02/21 13:30 Last Infusion: 02/02/21 14:22 Dose: 0 mls/hr Documented by: [id number] Admin: 02/02/21 13:11 Dose: 999 mls/hr Documented by: [id number] Magnesium Sulfate/Dextrose (Magnesium Sulfate / D5w) 1 gm in 100 mls @ 100 mls/hr IV NOW STA Stop: 02/02/21 14:43 Last Infusion: 02/02/21 16:06 Dose: 0 mls/hr Documented by: [id number] Admin: 02/02/21 14:07 Dose: 100 mls/hr Documented by: [id number] Sodium Chloride (Nss 1000ml) 500 mls @ 999 mls/hr IV .Q31M ONE Stop: 02/02/21 14:14 Last Admin: 02/02/21 14:07 Dose: Not Given Documented by: [id number] Imaging Data Radiologist's Impression: Chest X-Ray 02/02/21 12:51 XR chest 1V portable CLINICAL HISTORY: Atypical chest pain. COMPARISON STUDY: Chest CT September 24, 2020. FINDINGS: The right internal jugular [id number] is in place. Lung volumes are normal. Lungs are clear. There is no pneumothorax or pleural effusion. Cardiomegaly is unchanged. Mediastinal contours are normal. There is no evidence for pulmonary edema. IMPRESSION: No acute cardiopulmonary findings. ACT 112: Negative or not required by law. Electronically signed by: Bunny Hilario M.D. 02/02/2021 1:36 PM Discharge Plan Visit Data Chief Complaint: Arrhythmia/Palpitations Stated Complaint: HIGH HEART RATE ED Provider: Jun Mays Discharge Problem: Atrial fibrillation with rapid ventricular response, Acute dehydration, Vini tropenia, Anemia, Hypomagnesemia Patient Disposition: Admitted As Inpatient Condition: Fair Forms Stand Alone Forms: My [facility] Prescriptions Prescriptions: No Action allopurinol 300 mg tablet 300 mg PO QAM Qty: 90 RF: 3 metoprolol succinate 100 mg tablet extended release 24 hr 100 mg PO QPM Qty: 90 RF: 3 Nephro-Abbie 0.8 mg tablet 1 tab PO DAILY Qty: 90 RF: 3 levothyroxine [Synthroid] 100 mcg tablet 100 mcg PO DAILY Qty: 90 RF: 3 rosuvastatin 20 mg tablet 20 mg PO DAILY Qty: 90 RF: 3 Trulicity 0.75 mg/0.5 mL pen injector 0.75 mg SQ WEEKLY Qty: 2 RF: 0 albuterol sulfate [Ventolin HFA] 90 mcg/actuation HFA aerosol inhaler 2 puff inhalation QID PRN (Reason: shortness of breath or wheezing) Qty: 18 RF: 2 amlodipine 10 mg tablet 10 mg PO DAILY Qty: 90 RF: 3 calcitriol 0.25 mcg capsule 0.25 mcg PO UD RF: 0 cinacalcet [Sensipar] 30 mg tablet 30 mg PO UD RF: 0 Referrals Referrals: Hilda Berry MD [Primary Care Provider] - Discharge Problem: Neutropenia Qualifiers: Neutropenia type: secondary to cancer chemotherapy Qualified Code(s): D70.1 - Agranulocytosis secondary to cancer chemotherapy Anemia Qualifiers: Anemia type: unspecified type Qualified Code(s): D64.9 - Anemia, unspecified
--- NOTE | 2021-02-02 13:38 | XRay Report ---
XR chest 1V portable CLINICAL HISTORY: Atypical chest pain. COMPARISON STUDY: Chest CT September 24, 2020. FINDINGS: The right internal jugular [id number] is in place. Lung volumes are normal. Lungs are cl ear. There is no pneumothorax or pleural effusion. Cardiomegaly is unchanged. Mediastinal contours ar e normal. There is no evidence for pulmonary edema. IMPRESSION: No acute cardiopulmonary findings. ACT 112: Negative or not required by law. Electronically signed by: Bunny Hilario M.D. 02/02/2021 1:36 PM
[2021-02-02] MEDS ORDERED: MAGNESIUM SULFATE / D5W 1 GM/100 ML BAG IV STA (13:44)
[2021-02-02 14:32] LABS: Hematocrit (blood only) 21.3 % (42-52); Hemoglobin 7.3 g/dL (14.0-18.0); Mean Corpuscular Hemoglobin 32.9 pg (25-34); Mean Corpuscular Hgb Conc 34.3 g/dL (32-36); Mean Corpuscular Volume 95.9 fL (80-100); Mean Platelet Volume 10.2 fL (7.4-10.4); Nucleated RBC % (auto) 10.4 %; Platelet Count 177 K/uL (130-400); RDW Coefficient of Variation 13.6 % (11.5-14.5); RDW Standard Deviation 47.1 fL (36.4-46.3); Red Blood Count 2.22 M/uL (4.7-6.1); White Blood Count 0.99 K/uL (4.8-10.8)
[2021-02-02 14:40] LABS: Partial Thromboplastin Ratio 1.3; Partial Thromboplastin Time 34.7 Seconds (21.0-31.0); Prothrombin Time 10.6 Seconds (9.0-12.0)
--- NOTE | 2021-02-02 14:40 | Electrocardiogram Report ---
Test Reason : Blood Pressure : / mmHG Vent. Rate : 168 BPM Atrial Rate : 352 BPM P-R Int : 000 ms QRS Dur : 074 ms QT Int : 292 ms P-R-T Axes : 000 028 053 degrees QTc Int : 488 ms Possible Atrial flutter with variable A-V block Nonspecific ST and T wave abnormality Abnormal ECG When compared with ECG of 17-AUG-2019 05:53, Atrial flutter has replaced Sinus rhythm Vent. rate has increased BY 94 BPM Non-specific change in ST segment in Inferior leads ST now depressed in Anterior leads Confirmed by Scot Madrid ([id number]) on 02/02/2021 2:40:14 PM Referred By: Chiquis Barragan Confirmed By:Scot Madrid
[2021-02-02 14:44] LABS: Alanine Aminotransferase 42 U/L (12-78); Albumin Level 1.9 gm/dl (3.4-5.0); Aspartate Aminotransferase 22 U/L (15-37); BUN Creatinine Ratio 11.6 (10-20); Blood Urea Nitrogen 43 mg/dl (7-18); Calcium 7.9 mg/dl (8.5-10.1); Carbon Dioxide 19 mmol/L (21-32); Chloride 115 mmol/L (98-107); Est GFR (African American) 17.8 ml/min; Est GFR (Non-African American) 15.3 ml/min; Glucose 212 mg/dl (70-99); Magnesium 1.7 mg/dl (1.8-2.4); Potassium 4.4 mmol/L (3.5-5.1); Sodium 141 mmol/L (136-145)
[2021-02-02 15:23] LABS: Dohle Bodies 1+; Giant Platelets 1+
[2021-02-02 15:25] LABS: ALC (manual) 0.12 K/uL (1.2-3.4); ANC (manual) 0.64 K/uL (1.4-6.5); Basophils # (manual) 0.01 K/uL (0-0.2); Basophils % (manual) 1.5 %; Blast # (manual) 0.03 K/uL (0-0); Lymphocytes # (manual) 0.12 K/uL (1.2-3.4); Lymphocytes % (manual) 11.9 %; Metamyelocytes # (manual) 0.01 K/uL (0-0); Metamyelocytes % (manual) 1.5 %; Monocytes # (manual) 0.16 K/uL (0.11-0.59); Monocytes % (manual) 16.4 %; Myelocytes # (manual) 0.01 K/uL (0-0); Myelocytes % (manual) 1.5 %; Neutrophils # (manual) 0.64 K/uL (1.4-6.5); Neutrophils % (manual) 64.2 %
--- NOTE | 2021-02-02 15:31 | History & Physical Report ---
Date of Service February 02, 2021 Assessment & Plan (1) Atrial fibrillation with rapid ventricular response: Plan: Admit to a PCU bed Continue Cardizem drip as noted. Patient is also on Toprol-XL 100 mg daily, will continue this as well Will start heparin drip as well, [id number] score is 4 based on available information, will need to discuss long-term anticoagulant with the patient prior to discharge Check 2D echo Correct anemia as discussed below Follow magnesium Check TSH, fasting lipids We will ask cardiology to evaluate for further recommendations (2) Pancytopenia due to antineoplastic chemotherapy: Plan: This is likely secondary to chemotherapy, exacerbated by hemodilution check Fe/TIBC Monitor WBC count, may need to consider neutropenic precautions at this worsens I did obtain informed consent from the patient for blood transfusion. Will infuse 1 unit packed red blood cells and follow CBC Will ask heme-onc to evaluate further recommendations. Patient follows with Dr. Allan (3) Hypertension: Plan: Appears to be stable at this juncture, continue to monitor on medications including metoprolol and amlodipine (4) Diabetes mellitus, type 2: Plan: Patient is on dulaglutide, will hold for now Start sliding scale insulin Check hemoglobin A1c (5) CAD (coronary atherosclerotic disease): Plan: Continue Crestor or pharmacy equivalent Check a fasting lipid panel (6) Malignant neoplasm of lateral wall of bladder: Plan: Heme-onc follow-up as noted above History of Present Illness Chief Complaint: Atrial fibrillation Primary Care Provider: Hilda Berry MD This is a 75-year-old male with past medical history of bladder cancer, type 2 diabetes mellitus, hypertension that presents today with atrial fibrillation. Patient is a somewhat limited historian, is at bedside. Patient tells me he has been feeling quite poorly for approximately 1 week. This is mostly characterized as lethargy and generalized weakness. He has had a significant nausea which is worsened over the past 48 hours. He has been having difficulty ambulating over this time as well. He denies any shortness of breath, palpitations, or chest pain. Patient was somewhat resistant to seeking medical attention went to the cancer center this morning I will received IV Zofran as well as some IV hydration. He was significantly tachycardic at that time and they recommended that he come to the emergency room for further evaluation. In the ER, he was found to be in rapid atrial fibrillation with a rate of 168. He had been given a bolus dose of diltiazem 15 mg x 1 and started on a drip. At the time my evaluation, he remained in atrial fibrillation with a rate between 120 and 140. Blood pressure was low normal but is improved to 122/79. Laboratory work reveals some pancytopenia with minimal neutropenia. Patient is now being admitted for treatment of new onset atrial fibrillation. Of note, after IV hydration in the ER, I noted that his laboratory work to change considerably and is anemia worse with a hemoglobin of 7.3. I did discuss with the patient he is agreeable to packed red blood cell transfusion. Allergies Allergy/AdvReac Type Severity Reaction Status Date / Time Iodinated Contrast Media AdvReac Intermediate Hypertensio Verified 02/02/21 14:31 n atorvastatin [From Lipitor] AdvReac Mild muscle Verified 02/02/21 14:31 aches Home Medications Medication Instructions Recorded Confirmed Type dulaglutide 0.75 mg/0.5 mL 0.75 mg SQ WEEKLY #2 ml 09/19/19 02/02/21 Rx subcutaneous pen injector (Trulicity) allopurinol 300 mg tablet 300 mg PO QAM #90 tab 03/11/20 02/02/21 Rx albuterol sulfate 90 mcg/actuation 2 puff INHALATION QID PRN #18 g 05/22/20 02/02/21 Rx aerosol inhaler (Ventolin HFA) metoprolol succinate 100 mg 100 mg PO QPM #90 tab 07/22/20 02/02/21 Rx tablet,extended release 24 hr vitamin B complex-vitamin C-folic 1 tab PO DAILY #90 tab 08/29/20 02/02/21 Rx acid 0.8 mg tablet (Nephro-Abbie) levothyroxine 100 mcg tablet 100 mcg PO DAILY #90 tab 09/26/20 02/02/21 Rx (Synthroid) amlodipine 10 mg tablet 10 mg PO DAILY #90 tab 12/03/20 02/02/21 Rx rosuvastatin 20 mg tablet 20 mg PO DAILY #90 tab 12/17/20 02/02/21 Rx calcitriol 0.25 mcg capsule 0.25 mcg PO UD 02/02/21 02/02/21 History cinacalcet 30 mg tablet (Sensipar) 30 mg PO UD 02/02/21 02/02/21 History 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 CAD (coronary atherosclerotic disease) Cancer HX BLADDER CANCER SURGERY-CHEMO/RADIATION [facility] 2017 Chronic obstructive pulmonary disease Diabetes mellitus, type 2 Generalized osteoarthritis of multiple sites Gout Hearing loss History of stroke without residual deficits OCCURRED DURING AAA REPAIR [facility] [place] 5-6 YRS 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-NO ISSUES SINCE Hyperlipidemia Hypothyroidism Insomnia Kidney stones Passed x1 Malignant neoplasm of lateral wall of bladder (01/16/18) Past myocardial infarction Port-A-Cath in place CURRENT FUNCTIONING A-PORT IN PLACE Secondary hyperparathyroidism Vitamin D deficiency Surgical History H/O arthroscopy of knee H/O colonoscopy History of biopsy of bladder History of cardiac cath NO STENTS (~10 YEARS AGO)-NO ISSUES SINCE History of carpal tunnel release RIGHT History of cataract surgery BILATERAL History of cystoscopy History of lymph node biopsy S/P AAA (abdominal aortic aneurysm) repair Status post biopsy of kidney Family History Grandfather , in his eighties No problems noted. Grandmother , young cause unknown No problems noted. Grandfather , in his eighties No problems noted. Grandmother , did have breast cancer but in her eighties of unknown cause No problems noted. Father , He in his sixties had had three strokes and high blood pressure He had had a kidney removed perhaps from cancer Stroke Mother , in her mid seventies complications from smoking No problems noted. Daughter Age: 49 No problems noted. Daughter Age: 46 No problems noted. Daughter Age: 42 No problems noted. Brother , at age 7 of a stroke Stroke Other No family history of adverse response to anesthesia No family history of bleeding disorder Social History Smoking Status: Current some day smoker Tobacco Type: Cigarettes Age Started Using Tobacco: 10; packs per day: 0.5; Cigarettes Per Day: 10; Second Hand Exposure: Yes (Both parents smoked); Hx Alcohol Use: No Hx Substance Use: No Preferred Language: Scottish Communication Ability: Effective Visual Impairment: Partially Limited Hearing Ability: Use of Hearing Aid Tool And Die Technician Required: No Beliefs That Will Affect Care: None marital status: Current Living Situation: Alone current occupational status: retired How many Children do You have: 3 Feels Safe at Home: Yes Childhood Exposure to Second-Hand Smoke: Yes (Both parents smoked ) Diet Comment: Diabetic diet caffeine: Yes (Coffee tea) during the past year weight has: remained stable Dental Care, Regularly: No Physical Activity Frequency: Does not Exercise Seatbelt Use: always Sunscreen Use: No Do you think of yourself as: straight/heterosexual Assistive Devices: Denture - Upper, Denture - Lower, Glasses and Hearing Aid - Bilateral Review of Systems Constitutional: + fatigue, + malaise, + weakness and + anorexia; no weight loss and no weight gain Eyes: as per Subjective / HPI Respiratory: no cough, no chest congestion, no dyspnea and no dyspnea on exertion Cardiovascular: no chest pain, no orthopnea, no palpitations, no lightheadedness and no edema Gastrointestinal: no abdominal pain, no nausea, no vomiting, no constipation and no diarrhea/loose stools Musculoskeletal: no back pain, no neck pain, no joint pain, no stiffness and no myalgia Integumentary: no rash Neurologic: no gait abnormality, no unsteadiness, no falls and no generalized weakness Physical Exam Constitutional: cooperative; no acute distress Neck: trachea midline, no thyromegaly Respiratory: normal respiratory effort Auscultation: + wheezes; no crackles, no rales and no rhonchi Cardiovascular: Rate/Rhythm: + tachycardic and + irregularly irregular Heart Sounds: normal S1 and normal S2 Gastrointestinal (Abdomen): Inspection/Auscultation: abdomen normal to inspec tion Percussion/Palpation: abdomen soft; abdomen nontender, no guarding, abdomen not rigid and no hepatosplenomegaly Skin: no rashes, warm and dry Results & Data Results & Data ([facility]) Vital Signs (Past 12 Hours) Vital Signs Temp Pulse Pulse Resp BP BP Pulse Ox 02/02/21 15:00 120 H 16 122/79 96 02/02/21 12:48 36.6 C 168 H 18 108/69 96 Laboratory Results Laboratory Results WBC 0.99 K/uL (4.8-10.8) L* 02/02/21 14:15 RBC 2.22 M/uL (4.7-6.1) L 02/02/21 14:15 Hgb 7.3 g/dL (14.0-18.0) L 02/02/21 14:15 Hct 21.3 % (42-52) L 02/02/21 14:15 MCV 95.9 fL (80-100) 02/02/21 14:15 MCH 32.9 pg (25-34) 02/02/21 14:15 MCHC 34.3 g/dL (32-36) 02/02/21 14:15 RDW Std Deviation 47.1 fL (36.4-46.3) H 02/02/21 14:15 RDW Coeff of Josie 13.6 % (11.5-14.5) 02/02/21 14:15 Plt Count 177 K/uL (130-400) 02/02/21 14:15 MPV 10.2 fL (7.4-10.4) 02/02/21 14:15 Absolute Nucleated RBC 0.10 K/uL (0-0) H 02/02/21 14:15 Nucleated RBC % (auto) 10.4 % 02/02/21 14:15 Neutrophils % (Manual) 64.2 % 02/02/21 14:15 Lymphocytes % (Manual) 11.9 % 02/02/21 14:15 Monocytes % (Manual) 16.4 % 02/02/21 14:15 Basophils % (Manual) 1.5 % 02/02/21 14:15 Metamyelocytes % (Man) 1.5 % 02/02/21 14:15 Myelocytes % (Man) 1.5 % 02/02/21 14:15 Blast Cells % (Manual) 3.0 % 02/02/21 14:15 Neutrophils # (Manual) 0.64 K/uL (1.4-6.5) L 02/02/21 14:15 Total Absolute Neuts 0.64 K/uL (1.4-6.5) L* 02/02/21 14:15 Lymphocytes # (Manual) 0.12 K/uL (1.2-3.4) L 02/02/21 14:15 Total Abs Lymphocytes 0.12 K/uL (1.2-3.4) L 02/02/21 14:15 Monocytes # (Manual) 0.16 K/uL (0.11-0.59) 02/02/21 14:15 Basophils # (Manual) 0.01 K/uL (0-0.2) 02/02/21 14:15 Metamyelocytes # (Man) 0.01 K/uL (0-0) H 02/02/21 14:15 Myelocytes # (Manual) 0.01 K/uL (0-0) H 02/02/21 14:15 Blast Cells # (Man) 0.03 K/uL (0-0) H 02/02/21 14:15 Dohle Bodies 1+ 02/02/21 14:15 Giant Platelets 1+ 02/02/21 14:15 PT 10.6 Seconds (9.0-12.0) 02/02/21 14:15 INR 1.0 (0.9-1.1) 02/02/21 14:15 APTT 34.7 Seconds (21.0-31.0) H 02/02/21 14:15 PTT Ratio 1.3 02/02/21 14:15 Sodium 141 mmol/L (136-145) 02/02/21 14:15 Potassium 4.4 mmol/L (3.5-5.1) 02/02/21 14:15 Chloride 115 mmol/L (98-107) H 02/02/21 14:15 Carbon Dioxide 19 mmol/L (21-32) L 02/02/21 14:15 Anion Gap 7.0 (3-11) 02/02/21 14:15 BUN 43 mg/dl (7-18) H 02/02/21 14:15 Creatinine 3.69 mg/dl (0.6-1.4) H D 02/02/21 14:15 Est Cr Clr Drug Dosing Not Reportable 02/02/21 14:15 Est GFR ( Amer) 17.8 ml/min 02/02/21 14:15 Est GFR (Non-Af Amer) 15.3 ml/min 02/02/21 14:15 BUN/Creatinine Ratio 11.6 (10-20) 02/02/21 14:15 Glucose 212 mg/dl (70-99) H 02/02/21 14:15 Calcium 7.9 mg/dl (8.5-10.1) L 02/02/21 14:15 Magnesium 1.7 mg/dl (1.8-2.4) L 02/02/21 14:15 AST 22 U/L (15-37) 02/02/21 14:15 ALT 42 U/L (12-78) 02/02/21 14:15 Albumin 1.9 gm/dl (3.4-5.0) L 02/02/21 14:15 COVID-19 Eval Order Covid19 at [facility] 02/02/21 13:49 Impressions Chest X-Ray 02/02/21 12:51 XR chest 1V portable CLINICAL HISTORY: Atypical chest pain. COMPARISON STUDY: Chest CT September 24, 2020. FINDINGS: The right internal jugular [id number] is in place. Lung volumes are normal. Lungs are clear. There is no pneumothorax or pleural effusion. Cardiomegaly is unchanged. Mediastinal contours are normal. There is no evidence for pulmonary edema. IMPRESSION: No acute cardiopulmonary findings. ACT 112: Negative or not required by law. Electronically signed by: Bunny Hilario M.D. 02/02/2021 1:36 PM PG Care Time/CCT Total # of Minutes Spent Total Time Spent with Patient: Total time spent is greater than 50% in coordination of care (as documented) at patient's floor/unit and/or counseling patient: Coding Level of Care Code 97384 Initial Inpt Care Lvl 3 Diagnoses Hypertension I10 Diabetes mellitus, type 2 E11.9 CAD (coronary atherosclerotic disease) I25.10 Malignant neoplasm of lateral wall of bladder C67.2 Pancytopenia due to antineoplastic chemotherapy D61.810; T45.1X5A Atrial fibrillation with rapid ventricular response I48.91
[2021-02-02 16:08] LABS: Albumin Globulin Ratio 0.5 (0.9-2); Alkaline Phosphatase 74 U/L (45-117); Bilirubin,Total 0.3 mg/dl (0.2-1); Globulin 3.9 gm/dl (2.5-4.0); Total Protein 5.8 gm/dl (6.4-8.2); Troponin I 0.154 ng/ml (0-0.045)
[2021-02-02] MEDS ORDERED: METOPROLOL SUCC 50MG EXT REL TAB PO SCH (21:51)
[2021-02-02] MEDS ORDERED: ACETAMINOPHEN 325 MG TAB PO PRN (21:51)
[2021-02-02] MEDS ORDERED: SODIUM CHLORIDE 0.9% 250 ML IV PRN (21:51)
[2021-02-02] MEDS ORDERED: ONDANSETRON INJ 2 MG/ML 2 ML VIAL IV PRN (21:51)
[2021-02-02] MEDS ORDERED: GLUCAGON FOR INJ 1 MG VIAL SQ PRN (21:51)
[2021-02-02] MEDS ORDERED: SODIUM CHLORIDE 0.9% 1000ML 1,000 ML IV SCH (21:51)
[2021-02-02] MEDS ORDERED: GLUCOSE 40% GEL 15 GM TUBE PO PRN (21:51)
[2021-02-02] MEDS ORDERED: DEXTROSE 50% 50 ML SYRINGE IV PRN (21:51)
[2021-02-02] MEDS ORDERED: CARBOHYDRATES FOR HYPOGLYCEMIA PO PRN (21:51)
[2021-02-02] MEDS ORDERED: GLUCOSE 10 TABS/TUBE PO PRN (21:51)
[2021-02-02] MEDS ORDERED: ALBUTEROL HFA 8 GM INHALER INH PRN (21:51)
[2021-02-02 22:56] LABS: Iron 31 mcg/dl (35-175); Total Iron Binding Capacity 146 mcg/dl (250-450)
[2021-02-02] MEDS: INSULIN GLARGINE SOLOSTAR 100 UNITS/ML 3 ML PEN SC SCH (23:14)
[2021-02-02] MEDS: INSULIN ASPART 100 UNITS/ML 3 ML PEN SC SCH (23:21)
[2021-02-03] MEDS ORDERED: HEPARIN 100 UNIT/ML 5ML FLUSH FLUSH PRN (01:33)
[2021-02-03 04:25] VITALS: TEMP 97.5
[2021-02-03] MEDS ORDERED: LEVOTHYROXINE SODIUM 100 MCG TABLET PO SCH (06:30)
[2021-02-03 07:06] LABS: Hematocrit (blood only) 24.4 % (42-52); Hemoglobin 8.4 g/dL (14.0-18.0); Mean Corpuscular Hemoglobin 31.5 pg (25-34); Mean Corpuscular Hgb Conc 34.4 g/dL (32-36); Mean Corpuscular Volume 91.4 fL (80-100); Mean Platelet Volume 10.4 fL (7.4-10.4); Nucleated RBC # (auto) 0.16 K/uL (0-0); Nucleated RBC % (auto) 7.7 %; Platelet Count 218 K/uL (130-400); RDW Coefficient of Variation 14.4 % (11.5-14.5); RDW Standard Deviation 48.2 fL (36.4-46.3); Red Blood Count 2.67 M/uL (4.7-6.1); White Blood Count 2.09 K/uL (4.8-10.8)
[2021-02-03 07:13] LABS: Estimated Average Glucose 163 mg/dl; Hemoglobin A1C 7.3 % (4.5-5.6)
[2021-02-03 07:22] LABS: BUN Creatinine Ratio 13.2 (10-20); Calcium 8.2 mg/dl (8.5-10.1); Creatinine Clr Calc Pharmacy 15.8 ml/min; Est GFR (African American) 16.7 ml/min; Est GFR (Non-African American) 14.4 ml/min; Potassium 4.4 mmol/L (3.5-5.1)
[2021-02-03 07:46] LABS: ALC (manual) 0.22 K/uL (1.2-3.4); ANC (manual) 1.44 K/uL (1.4-6.5); Dohle Bodies 1+; Eosinophils # (manual) 0.02 K/uL (0-0.5); Eosinophils % (manual) 0.9 %; Giant Platelets 1+; Lymphocytes # (manual) 0.22 K/uL (1.2-3.4); Lymphocytes % (manual) 10.4 %; Metamyelocytes # (manual) 0.07 K/uL (0-0); Metamyelocytes % (manual) 3.5 %; Monocytes # (manual) 0.27 K/uL (0.11-0.59); Myelocytes # (manual) 0.07 K/uL (0-0); Myelocytes % (manual) 3.5 %; Neutrophils # (manual) 1.44 K/uL (1.4-6.5); Neutrophils % (manual) 68.7 %; Polychromasia 1+
[2021-02-03] MEDS: INSULIN ASPART 100 UNITS/ML 3 ML PEN SC SCH ×2 (08:09→12:07)
[2021-02-03] MEDS: INSULIN GLARGINE SOLOSTAR 100 UNITS/ML 3 ML PEN SC SCH (08:10)
[2021-02-03] MEDS ORDERED: amLODIPine BESYLATE 5 MG TAB PO SCH (09:00)
[2021-02-03] MEDS ORDERED: NEPHROCAPS PO SCH (09:00)
[2021-02-03] MEDS ORDERED: allopurinoL 300 MG TAB PO SCH (09:00)
--- NOTE | 2021-02-03 09:47 | Cardiology Consultation ---
Date of Consultation February 03, 2021 Assessment & Plan (1) Atrial fibrillation with rapid ventricular response: He spontaneously converted to normal sinus rhythm. He has been feeling better symptomatically since converting to sinus. Recommend weaning off the diltiazem drip and titrating his PO Toprol XL for better rate control of any future episodes of the arrhythmia. He does have an elevated CHADSVASc score, and anticoagulation therapy is therefore indicated for stroke risk reduction. He is hesitant to begin an anticoagulant. He is also anemic secondary to chemotherapy and has intermittent hematuria related to his bladder CA. Would therefore be very cautious with starting long-term anticoagulation therapy and would monitor blood counts closely as an outpatient. He has been ordered an echocardiogram, which is still pending. (2) CAD (coronary atherosclerotic disease): He reportedly has a history of nonobstructive CAD. His troponin was mildly elevated upon arrival, which is likely secondary to demand ischemia. He denies angina. Continue risk factor modification. (3) Benign essential hypertension: BP is elevated this morning but has been well controlled otherwise. Recommend weaning the diltiazem drip and titrating Toprol XL, as noted above. (4) Hyperlipidemia: Continue statin therapy. Patient discussed with Dr. Madrid. History of Present Illness Reason for Consultation: atrial fibrillation with RVR Requesting Physician: Dr. Blanco History of Present Illness Mr. Crews is a 75-year-old male with a past medical history significant for AAA with repair in 2012, remote history of atrial fibrillation, diabetes mellitus on insulin, hypertension, dyslipidemia, tobacco abuse, CKD stage IV, and metastatic bladder cancer who was admitted yesterday in the setting of atrial fibrillation with RVR. The patient has bladder CA with metastasis to the mediastinum. He is currently undergoing chemotherapy and was in the cancer center yesterday when he was noted to be tachycardic. The patient reports that he had been feeling poorly for about a week. He noted significant weakness and fatigue as well as shortness of breath. He noted palpitations where he felt as though his heart was pounding and had some mild lightheadedness. He denies syncope, chest pain, edema, or cerebrovascular symptoms. He notes intermittent hematuria secondary to his bladder cancer. He denies melena or hematochezia. He was administered a bolus of diltiazem and initiated on a diltiazem drip with spontaneous conversion to sinus rhythm. He reports that he has been feeling much better symptomatically since converting to sinus rhythm. He was also noted to be pancytopenic secondary to his chemotherapy. His hemoglobin was 7.3 on arrival and was transfused 1 unit PRBC with improvement in his hemoglobin to 8.4 today. Family history: Father and brother with history of stroke. Social history: He currently smokes 1 pack every 2-3 days. He has a longstanding history of smoking dating back to the age of 12 or 13 at up to 2 ppd. No current alcohol use. Allergies Allergy/AdvReac Type Severity Reaction Status Date / Time Iodinated Contrast Media AdvReac Intermediate Hypertensio Verified 02/02/21 14:31 n atorvastatin [From Lipitor] AdvReac Mild muscle Verified 02/02/21 14:31 aches Home Medications Medication Instructions Recorded Confirmed Type dulaglutide 0.75 mg/0.5 mL 0.75 mg SQ WEEKLY #2 ml 09/19/19 02/02/21 Rx subcutaneous pen injector (Trulicity) allopurinol 300 mg tablet 300 mg PO QAM #90 tab 03/11/20 02/02/21 Rx albuterol sulfate 90 mcg/actuation 2 puff INHALATION QID PRN #18 g 05/22/20 02/02/21 Rx aerosol inhaler (Ventolin HFA) metoprolol succinate 100 mg 100 mg PO QPM #90 tab 07/22/20 02/02/21 Rx tablet,extended release 24 hr vitamin B complex-vitamin C-folic 1 tab PO DAILY #90 tab 08/29/20 02/02/21 Rx acid 0.8 mg tablet (Nephro-Abbie) levothyroxine 100 mcg tablet 100 mcg PO DAILY #90 tab 09/26/20 02/02/21 Rx (Synthroid) amlodipine 10 mg tablet 10 mg PO DAILY #90 tab 12/03/20 02/02/21 Rx rosuvastatin 20 mg tablet 20 mg PO DAILY #90 tab 12/17/20 02/02/21 Rx calcitriol 0.25 mcg capsule 0.25 mcg PO UD 02/02/21 02/02/21 History cinacalcet 30 mg tablet (Sensipar) 30 mg PO UD 02/02/21 02/02/21 History Patient History Medical History Acid reflux Adenomatous polyp of colon Benign essential hypertension Benign prostatic hyperplasia 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 CAD (coronary atherosclerotic disease) Cancer HX BLADDER CANCER SURGERY-CHEMO/RADIATION [facility] 2017 Chronic obstructive pulmonary disease Diabetes mellitus, type 2 Generalized osteoarthritis of multiple sites Gout Hearing loss History of stroke without residual deficits OCCURRED D[place] [facility] 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-NO ISSUES SINCE Hyperlipidemia Hypothyroidism Insomnia Kidney stones Passed x1 Malignant neoplasm of lateral wall of bladder (01/16/18) Past myocardial infarction Port-A-Cath in place CURRENT FUNCTIONING A-PORT IN PLACE Secondary hyperparathyroidism Vitamin D deficiency Surgical History H/O arthroscopy of knee H/O colonoscopy History of biopsy of bladder History of cardiac cath NO STENTS (~10 YEARS AGO)-NO ISSUES SINCE History of carpal tunnel release RIGHT History of cataract surgery BILATERAL History of cystoscopy History of lymph node biopsy S/P AAA (abdominal aortic aneurysm) repair Status post biopsy of kidney Family History Grandfather , in his eighties No problems noted. Grandmother , young cause unknown No problems noted. Grandfather , in his eighties No problems noted. Grandmother , did have breast cancer but in her eighties of unknown cause No problems noted. Father , He in his sixties had had three strokes and high blood pressure He had had a kidney removed perhaps from cancer Stroke Mother , in her mid seventies complications from smoking No problems noted. Daughter Age: 49 No problems noted. Daughter Age: 46 No problems noted. Daughter Age: 42 No problems noted. Brother , at age 7 of a stroke Stroke Other No family history of adverse response to anesthesia No family history of bleeding disorder Social History Smoking Status: Current every day smoker Tobacco Type: Cigarettes Age Started Using Tobacco: 10; packs per day: 0.5; Cigarettes Per Day: 10; Second Hand Exposure: Yes (Both parents smoked); Hx Alcohol Use: No Hx Substance Use: No Preferred Language: Northern Irish Communication Ability: Effective Visual Impairment: Partially Limited Hearing Ability: Use of Hearing Aid Major Account Representative Required: No Beliefs That Will Affect Care: None marital status: Current Living Situation: Alone current occupational status: retired How many Children do You have: 3 Other Information That Helps Us Care for You: No Feels Safe at Home: Yes Safety Concerns: Feels Safe At This Time Childhood Exposure to Second-Hand Smoke: Yes (Both parents smoked ) Diet Comment: Diabetic diet caffeine: Yes (Coffee tea) during the past year weight has: remained stable Dental Care, Regularly: No Physical Activity Frequency: Does not Exercise Seatbelt Use: always Sunscreen Use: No Do you think of yourself as: straight/heterosexual Assistive Devices: Denture - Upper, Denture - Lower, Glasses and Hearing Aid - Bilateral Review of Systems Review of Systems: As noted in HPI. All other ROS are reviewed and otherwise negative at this time. Physical Exam Physical Exam: Constitutional: Alert, oriented, in no acute distress HEENT: Head is atraumatic and normocephalic. EOMs intact. Sclera non-icteric. Face is symmetric. No perioral cyanosis. Mucous membranes moist Neck: Supple, no JVD Pulmonary: Normal respiratory effort, scattered wheezing Cardiac: Regular rate and rhythm, normal S1 and S2, no gallops, no rubs, no murmurs Extremities: No edema. No clubbing or cyanosis. Pulses intact Abdomen: Normal bowel sounds, soft, non-tender, no abdominal masses palpated Skin: Normal skin color, turgor, and pigmentation. No rash or skin lesions Neurological: Oriented to person, place, and time Results & Data ([facility]) Vital Signs (Past 12 Hours) Vital Signs Temp Pulse Pulse Resp BP BP Pulse Ox 02/03/21 07:50 97.5 F L 65 20 151/89 H 93 02/03/21 04:10 97.5 F L 70 18 168/83 H 96 02/03/21 03:35 97.7 F 69 16 149/83 H 96 02/03/21 02:35 97.7 F 62 18 139/79 96 02/03/21 01:35 97.3 F L 70 16 124/71 97 02/03/21 01:05 97.5 F L 69 16 121/74 96 02/03/21 00:50 97.5 F L 68 18 116/75 96 02/03/21 00:34 97.7 F 70 18 149/71 H 98 02/02/21 21:51 97.7 F 81 20 134/71 96 Laboratory Results Laboratory Results WBC 2.09 K/uL (4.8-10.8) L 02/03/21 06:28 RBC 2.67 M/uL (4.7-6.1) L 02/03/21 06:28 Hgb 8.4 g/dL (14.0-18.0) L 02/03/21 06:28 Hct 24.4 % (42-52) L 02/03/21 06:28 MCV 91.4 fL (80-100) 02/03/21 06:28 MCH 31.5 pg (25-34) 02/03/21 06:28 MCHC 34.4 g/dL (32-36) 02/03/21 06:28 RDW Std Deviation 48.2 fL (36.4-46.3) H 02/03/21 06:28 RDW Coeff of Josie 14.4 % (11.5-14.5) 02/03/21 06:28 Plt Count 218 K/uL (130-400) 02/03/21 06:28 MPV 10.4 fL (7.4-10.4) 02/03/21 06:28 Absolute Nucleated RBC 0.16 K/uL (0-0) H 02/03/21 06:28 Nucleated RBC % (auto) 7.7 % 02/03/21 06:28 Neutrophils % (Manual) 68.7 % 02/03/21 06:28 Lymphocytes % (Manual) 10.4 % 02/03/21 06:28 Monocytes % (Manual) 13.0 % 02/03/21 06:28 Eosinophils % (Manual) 0.9 % 02/03/21 06:28 Basophils % (Manual) 1.5 % 02/02/21 14:15 Metamyelocytes % (Man) 3.5 % 02/03/21 06:28 Myelocytes % (Man) 3.5 % 02/03/21 06:28 Blast Cells % (Manual) 3.0 % 02/02/21 14:15 Neutrophils # (Manual) 1.44 K/uL (1.4-6.5) 02/03/21 06:28 Total Absolute Neuts 1.44 K/uL (1.4-6.5) 02/03/21 06:28 Lymphocytes # (Manual) 0.22 K/uL (1.2-3.4) L 02/03/21 06:28 Total Abs Lymphocytes 0.22 K/uL (1.2-3.4) L 02/03/21 06:28 Monocytes # (Manual) 0.27 K/uL (0.11-0.59) 02/03/21 06:28 Eosinophils # (Manual) 0.02 K/uL (0-0.5) 02/03/21 06:28 Basophils # (Manual) 0.01 K/uL (0-0.2) 02/02/21 14:15 Metamyelocytes # (Man) 0.07 K/uL (0-0) H 02/03/21 06:28 Myelocytes # (Manual) 0.07 K/uL (0-0) H 02/03/21 06:28 Blast Cells # (Man) 0.03 K/uL (0-0) H 02/02/21 14:15 Dohle Bodies 1+ 02/03/21 06:28 Giant Platelets 1+ 02/03/21 06:28 Polychromasia 1+ 02/03/21 06:28 PT 10.6 Seconds (9.0-12.0) 02/02/21 14:15 INR 1.0 (0.9-1.1) 02/02/21 14:15 APTT 34.7 Seconds (21.0-31.0) H 02/02/21 14:15 PTT Ratio 1.3 02/02/21 14:15 Sodium 145 mmol/L (136-145) 02/03/21 06:28 Potassium 4.4 mmol/L (3.5-5.1) 02/03/21 06:28 Chloride 116 mmol/L (98-107) H 02/03/21 06:28 Carbon Dioxide 20 mmol/L (21-32) L 02/03/21 06:28 Anion Gap 9.0 (3-11) 02/03/21 06:28 BUN 51 mg/dl (7-18) H 02/03/21 06:28 Creatinine 3.88 mg/dl (0.6-1.4) H 02/03/21 06:28 Est Cr Clr Drug Dosing 15.8 ml/min 02/03/21 06:28 Est GFR ( Amer) 16.7 ml/min 02/03/21 06:28 Est GFR (Non-Af Amer) 14.4 ml/min 02/03/21 06:28 BUN/Creatinine Ratio 13.2 (10-20) 02/03/21 06:28 Glucose 171 mg/dl (70-99) H 02/03/21 06:28 POC Glucose 174 mg/dl (70-99) H 02/03/21 07:08 Estimat Average Glucose 163 mg/dl 02/03/21 06:28 Hemoglobin A1c 7.3 % (4.5-5.6) H 02/03/21 06:28 Calcium 8.2 mg/dl (8.5-10.1) L 02/03/21 06:28 Magnesium 1.7 mg/dl (1.8-2.4) L 02/02/21 14:15 Iron 31 mcg/dl (35-175) L 02/02/21 22:12 TIBC 146 mcg/dl (250-450) L 02/02/21 22:12 Total Bilirubin 0.3 mg/dl (0.2-1) 02/02/21 14:15 AST 22 U/L (15-37) 02/02/21 14:15 ALT 42 U/L (12-78) 02/02/21 14:15 Alkaline Phosphatase 74 U/L (45-117) 02/02/21 14:15 Troponin I 0.154 ng/ml (0-0.045) H* 02/02/21 14:15 Total Protein 5.8 gm/dl (6.4-8.2) L 02/02/21 14:15 Albumin 1.9 gm/dl (3.4-5.0) L 02/02/21 14:15 Globulin 3.9 gm/dl (2.5-4.0) 02/02/21 14:15 Albumin/Globulin Ratio 0.5 (0.9-2) L 02/02/21 14:15 Triglycerides 87 mg/dl (0-150) 02/03/21 06:28 Cholesterol 116 mg/dl (0-200) 02/03/21 06:28 LDL Cholesterol, Calc 60 mg/dl 02/03/21 06:28 VLDL Cholesterol, Calc 17 mg/dl 02/03/21 06:28 HDL Cholesterol 39 mg/dl 02/03/21 06:28 Cholesterol/HDL Ratio 3 02/03/21 06:28 TSH 1.380 uIu/ml (0.300-4.500) 02/02/21 14:15 COVID-19 Eval Order Covid19 at [facility] 02/02/21 13:49 SARS-CoV-2 (PCR) NEGATIVE (Negative) 02/02/21 13:49 Blood Type O Positive 02/02/21 22:12 Antibody Screen NEGATIVE 02/02/21 22:12 Crossmatch See Detail 02/02/21 22:12 Diagnostic Findings Chest X-Ray 02/02/21 12:51 XR chest 1V portable CLINICAL HISTORY: Atypical chest pain. COMPARISON STUDY: Chest CT September 24, 2020. FINDINGS: The right internal jugular [id number] is in place. Lung volumes are normal. Lungs are clear. There is no pneumothorax or pleural effusion. Cardiomegaly is unchanged. Mediastinal contours are normal. There is no evidence for pulmonary edema. IMPRESSION: No acute cardiopulmonary findings. Telemetry: Sinus rhythm in the 60s-70s ECG 02/02/21 @ 12:53: Atrial fibrillation vs flutter at [address]- T wave abnormality. ECG 02/02/21 @ 18:49: Sinus rhythm at 86 bpm. Possible inferior AR. Poor R wave progression. ECG today: Sinus rhythm at 66 bpm. Possible inferior AR. PG Care Time/CCT Total # of Minutes Spent Total Time Spent with Patient: Total time spent is greater than 50% in coordination of care (as documented) at patient's floor/unit and/or counseling patient: Coding Level of Care Code 51016 Initial Inpt Care Lvl 3 Diagnoses Atrial fibrillation with rapid ventricular response I48.91 CAD (coronary atherosclerotic disease) I25.10 Benign essential hypertension I10 Hyperlipidemia E78.2 Hyperlipidemia type: mixed hyperlipidemia (1) Hyperlipidemia Hyperlipidemia type: mixed hyperlipidemia Qualified Code(s): E78.2 - Mixed hyperlipidemia
--- NOTE | 2021-02-03 10:09 | Consultation Report ---
MEDICAL ONCOLOGY CONSULTATION DATE OF CONSULTATION: 02/03/2021. REASON FOR CONSULTATION: A 75-year-old gentleman with metastatic high-grade urothelial carcinoma. HISTORY OF PRESENT ILLNESS: Mr. Sawyer Crews is a very pleasant 75-year-old gentleman well known to [facility], originally a patient of Dr. Bryant Espitia, more recently seen by our physician extenders aft er diagnosis of metastatic high-grade urothelial carcinoma. This gentleman recently started salvage gemcitabine and carboplatin. Last dose administered on 01/21/2021. For the most part, he tolerated chemo initially; however, not uncommonly began to feel some of the effects of treatment characterized as generalized weakness with lethargy and just overall feeling poorly. During the previous 48 hours from admission, he was experiencing nausea. He apparently contacted our office, received IV Zofran and hydration at [facility] when he developed tachycardia. He was subsequently sent to the emergency room a nd found to be in rapid atrial fibrillation with a ventricular rate near 170. He was administered di ltiazem and started on drip. His heart rate has returned to normal at bedside, presently around 70 b eats per minute. His hemoglobin was also quite low on admission. Again, this gentleman was original ly diagnosed with stage II urothelial carcinoma with clear cell features in the right lateral bladde r wall in December of 2017 and had been on surveillance. He in September of this year underwent CT scan of the chest, abdomen and pelvis, which showed interval enlargement of the previously seen prevascula r mediastinal lymph node and a prevascular lymph node measuring 2.0 x 1.2 cm. He underwent robotic b iopsy and excision at the [facility]. Pathology was consistent with high-grade urothelia l carcinoma. Thus, the rationale for current treatment. PAST MEDICAL HISTORY: Significant for secondary hyperparathyroidism, coronary artery disease, bladde r cancer, renal stones, hypothyroidism, hyperlipidemia, gout, osteoarthritis, type 2 diabetes mellitu s, benign prostatic hyperplasia, gastroesophageal reflux disease. PAST SURGICAL HISTORY: Includes arthroscopy of the knee, colonoscopy, history of superficial bladder tumors excised, history of carpal tunnel release, cataract surgery, cystoscopy, abdominal aortic ane urysm repair. CURRENT MEDICATIONS: Include dulaglutide 0.75 mg subcu q. weekly, allopurinol 300 mg p.o. q. daily, albuterol 2 puffs inhaled q.i.d. p.r.n., metoprolol 100 mg p.o. q. daily, vitamin B complex 1 tablet p.o. q. daily, levothyroxine 100 mcg p.o. q. daily, amlodipine 10 mg p.o. q. daily, rosuvastatin 20 m g p.o.q. daily, calcitriol 0.25 mcg p.o. UD, and Sensipar 30 mg p.o. UD. ALLERGIES: IV CONTRAST AND ATORVASTATIN. FAMILY HISTORY: Father in his 60s from CVA and hypertension and had a history of kidney cancer. Mother in her 70s, complications for smoking. SOCIAL HISTORY: The patient is . He lives independently. He is an active smoker, half pack per day. Negative for alcohol. REVIEW OF SYSTEMS: GENERAL: Positive for asthenia, generalized weakness, tachycardia, atrial fibrillation, nausea, nega tive for fevers, chills, or sweats. SKIN: No rashes or lesions. No history of dermatoses. HEENT: Negative for headaches, lightheadedness, or dizziness. No dysphagia or sore throat. LYMPHATICS: No history of lymphoproliferative disease. CARDIAC: Positive history of coronary artery disease, no angina or palpitations. PULMONARY: Negative for COPD. He is not short of breath, dyspneic, or orthopneic. No cough or hemo ptysis. GASTROINTESTINAL: Negative for abdominal pain. Positive for nausea. No diarrhea or constipation, he matochezia or melena stools. GENITOURINARY: Positive for history of bladder cancer. Positive for BPH. No current hematuria, dys uria, urinary incontinence. PSYCHIATRIC: Negative for anxiety, depression, or psychoses. ENDOCRINE: Positive for type 2 diabetes mellitus and hypothyroidism. MUSCULOSKELETAL: No arthralgias or myalgias. No focal muscle weakness. NEUROLOGIC: Negative for seizure, stroke, or migraine headache. HEMATOLOGIC: Positive for pancytopenia attributable to treatment effect. PHYSICAL EXAMINATION: GENERAL: A very pleasant 75-year-old gentleman, awake, alert, and appropriate, in no acute distress. VITAL SIGNS: Temperature 36.4, pulse 79, respiratory rate 18, blood pressure 168/83. SKIN: Warm, dry, noncyanotic without petechiae, rash, or ecchymosis. HEENT: Head atraumatic, normocephalic. Eyes: PERRLA. EOMI. Sclerae are nonicteric. No conjunctiv al injection. Nares are patent without rhinorrhea or discharge. Throat clear. Tongue midline. Muc ous membranes are moist. NECK: Supple without JVD or thyromegaly. LYMPHATICS: No cervical, supraclavicular, axillary, or inguinal palpable nodes. HEART: Regular rate and rhythm. No clicks, rubs, murmurs, or gallops. LUNGS: Clear to auscultation bilaterally. ABDOMEN: Soft, nontender, nondistended, without palpable hepatosplenomegaly. EXTREMITIES: No clubbing, cyanosis, or edema. MUSCULOSKELETAL: Strength and pulses are equal in all 4 quadrants. NEUROLOGIC: He is awake, alert, and oriented x3. Cranial nerves are grossly intact. LABORATORY DATA: WBC count 2090, hemoglobin 8.4, platelet count 218,000, absolute neutrophil count 6 40,000. Sodium 145, potassium 4.4, chloride 116, carbon dioxide 20, BUN 51, creatinine 3.88. His ir on is low at 31, magnesium 1.7, albumin 1.9. IMPRESSION: 1. Atrial fibrillation with rapid ventricular response. 2. Metastatic high-grade urothelial carcinoma. 3. Pancytopenia attributable to chemotherapeutic effect. 4. Neutropenia. 5. Hypoalbuminemia. 6. Iron deficiency/anemia of chronic renal insufficiency. 7. Chronic kidney disease. PLAN: Mr. Crews is a very pleasant 75-year-old gentleman well known to [facility], currently under our car e, newly diagnosed metastatic high-grade urothelial carcinoma. He was recently started on salvage ge mcitabine and carboplatin. This regimen generally is not terribly myelosuppressive, but certainly in his case his WBCs and hemoglobin both fell precipitously. Thus, we will need to consider dose reduc tion. I would recommend 25% with incorporation of granulocyte colony stimulating growth factor in shaver bsequent courses moving forward. As for his current issues, his cardiac rhythm seems to have stabili zed. I would correct his electrolytes. I would like him to receive a dose of iron sucrose before he departs today or within the next 24 hours. His nutritional status needs to be addressed and I agree with medical management otherwise. We will advise Chiquis Barragan who is managing Mr. Crews of the patient's admission and any of these outstanding issues that would need to be addressed upon discharg e. I have nothing further to add at this point. Thank you very much for allowing me to participate in his care. Job ID: [id number]
[2021-02-03 11:51] VITALS: BP 149/90; O2SAT 96
--- NOTE | 2021-02-03 12:38 | Discharge Summary ---
Date of Service February 03, 2021 Admission HPI Per Admitting Provider This is a 75-year-old male with past medical history of bladder cancer, type 2 diabetes mellitus, hypertension that presents today with atrial fibrillation. Patient is a somewhat limited historian, is at bedside. Patient tells me he has been feeling quite poorly for approximately 1 week. This is mostly characterized as lethargy and generalized weakness. He has had a significant nausea which is worsened over the past 48 hours. He has been having difficulty ambulating over this time as well. He denies any shortness of breath, palpitations, or chest pain. Patient was somewhat resistant to seeking medical attention went to the cancer center this morning I will received IV Zofran as well as some IV hydration. He was significantly tachycardic at that time and they recommended that he come to the emergency room for further evaluation. In the ER, he was found to be in rapid atrial fibrillation with a rate of 168. He had been given a bolus dose of diltiazem 15 mg x 1 and started on a drip. At the time my evaluation, he remained in atrial fibrillation with a rate between 120 and 140. Blood pressure was low normal but is improved to 122/79. Laboratory work reveals some pancytopenia with minimal neutropenia. Patient is now being admitted for treatment of new onset atrial fibrillation. Of note, after IV hydration in the ER, I noted that his laboratory work to change considerably and is anemia worse with a hemoglobin of 7.3. I did discuss with the patient he is agreeable to packed red blood cell transfusion. Principal Diagnosis Paroxysmal atrial fibrillation with rapid response Discharge Exam General: well developed, well nourished, frail elderly male, no distress EENT: hoarse voice Neck: supple, trachea midline, normal thyroid Lungs: clear to auscultation bilaterally, normal respiratory effort, no accessory muscle use, no distress Heart: regular S1 and S2, no murmur, peripheral pulses normal, capillary refill normal, no edema Abdomen: soft, NT, ND, + BS, no hepatomegaly, normal to percussion Extremities: normal in appearance, no cyanosis, no petechiae, strength is 5/5 bilaterally Neuro: awake, cooperative, moves all extremities, no focal motor deficits, CN II-XII intact, sensation in extremities intact, normal speech Skin: warm, dry, no rash, normal turgor Psych: Awake, alert oriented x 3, euthymic affect Discharge Data Allergies Allergy/AdvReac Type Severity Reaction Status Date / Time Iodinated Contrast Media AdvReac Intermediate Hypertensio Verified 02/02/21 14:31 n atorvastatin [From Lipitor] AdvReac Mild muscle Verified 02/02/21 14:31 aches Consultations 02/02/21 13:51 ED Decision to Admit Stat 02/02/21 21:51 Consult Cardiology Routine Consult Hematology Routine Hospital Course (1) Atrial fibrillation with rapid ventricular response: converted to normal sinus rhythm on Cardizem drip and he got Toprol 100mg last evening he admits he was not taking the Toprol at home as prescribed told him it is very important that he take that cardiology discussed pros and cons of anticoagulation he wants to hold off given his ongoing chemotherapy and pancytopenia, that seems reasonable understands he is at risk of stroke without it echocardiogram with intact LV function he can follow up with cardiology in the future, Dr. Madrid (2) Pancytopenia due to antineoplastic chemotherapy: This is likely secondary to chemotherapy, exacerbated by hemodilution WBC is 2k, Hb is 8, plts normal he has a follow up with oncology office tomorrow, expecting to hold off on treatment (3) Hypertension: continue metoprolol and amlodipine (4) Diabetes mellitus, type 2: Patient is on dulaglutide, resume on discharge Novolog SS while admitted (5) CAD (coronary atherosclerotic disease): Continue Crestor or pharmacy equivalent Check a fasting lipid panel (6) Malignant neoplasm of lateral wall of bladder: Heme-onc follow-up as noted above Total Time Total Time Spent Total Time Spent (In Minutes): 25 Total Time Includes: Examination of the Patient, Discharge Planning, Medication Reconciliation and Communication With Other Providers Discharge Plan Discharge Items Patient Disposition: Home - Self-Care Reason For Visit: ATRIAL FIB Discharge Diagnosis: Atrial fibrillation Condition on Discharge: Good Goals: control heart rate and rhythm with metoprolol Activity: Resume your previous activity Driving/Machine Use: No limitations Weightbearing: Full weightbearing Non-emergency contact: Primary Care Provider Call non-emergency contact if: you have any medication questions Follow-up/Referrals: Hilda Berry MD [Primary Care Provider] - (one week) Diet: Carb Consistent or DM2 Addtl Attending Provider Instructions: Medications: - METOPROLOL: you NEED to take this medication every night, 100mg, will help control heart rate and keep you in normal rhythm, do not miss doses you got a dose last night, due this evening Atrial fibrillation: converted to normal rhythm for several hours can be discharged to home, continue on metoprolol XL 100mg every evening, take this evening discussed anticoagulation with Dr. Madrid, do NOT recommend blood thinner at this time due to chemotherapy, anemia, risk of bleeding echocardiogram shows that heart function is intact Pending Studies at Discharge: No Stand-Alone Forms: My [facility] [place], Smoking Cessation Medications and DC Order Prescriptions: Continued allopurinol 300 mg tablet 300 mg PO QAM Qty: 90 RF: 3 metoprolol succinate 100 mg tablet extended release 24 hr 100 mg PO QPM Qty: 90 RF: 3 Nephro-Abbie 0.8 mg tablet 1 tab PO DAILY Qty: 90 RF: 3 levothyroxine [Synthroid] 100 mcg tablet 100 mcg PO DAILY Qty: 90 RF: 3 rosuvastatin 20 mg tablet 20 mg PO DAILY Qty: 90 RF: 3 Trulicity 0.75 mg/0.5 mL pen injector 0.75 mg SQ WEEKLY Qty: 2 RF: 0 albuterol sulfate [Ventolin HFA] 90 mcg/actuation HFA aerosol inhaler 2 puff inhalation QID PRN (Reason: shortness of breath or wheezing) Qty: 18 RF: 2 amlodipine 10 mg tablet 10 mg PO DAILY Qty: 90 RF: 3 calcitriol 0.25 mcg capsule 0.25 mcg PO UD RF: 0 cinacalcet [Sensipar] 30 mg tablet 30 mg PO UD RF: 0 Discharge Orders: Discharge Order (Routine); Ordered 02/03/21 Ordered By: Eleuterio Alba Admission Data Admit Date/Time: 02/02/21 15:58 Attending Provider: Eleuterio Alba Admit Provider: Александр Blanco Primary Care Provider: Hilda Berry Other Providers: Александр Blanco ; Scot Madrid ; Rashi Allan V. Coding Level of Care Code 69641 OBS Care - Discharge Diagnoses Atrial fibrillation with rapid ventricular response I48.91 Pancytopenia due to antineoplastic chemotherapy D61.810; T45.1X5A Hypertension I10 Diabetes mellitus, type 2 E11.9 CAD (coronary atherosclerotic disease) I25.10 Malignant neoplasm of lateral wall of bladder C67.2
[2021-02-03 12:47] VITALS: PULSE 110
--- NOTE | 2021-02-03 14:44 | XCELERA ---
[id number]
--- NOTE | 2021-02-03 15:16 | Electrocardiogram Report ---
Test Reason : Blood Pressure : / mmHG Vent. Rate : 086 BPM Atrial Rate : 086 BPM P-R Int : 192 ms QRS Dur : 072 ms QT Int : 380 ms P-R-T Axes : 052 006 073 degrees QTc Int : 454 ms Normal sinus rhythm Possible Inferior infarct , age undetermined Poor R wave progression, consider anterior GA vs. lead placement vs. LVH Abnormal ECG When compared with ECG of 02-FEB-2021 12:53, Sinus rhythm has replaced Atrial flutter Vent. rate has decreased BY 82 BPM Borderline criteria for Inferior infarct are now Present Confirmed by Scot Madrid ([id number]) on 02/03/2021 3:15:50 PM Referred By: Chiquis Barragan Confirmed By:Scot Madrid
--- NOTE | 2021-02-03 15:26 | Electrocardiogram Report ---
Test Reason : Blood Pressure : / mmHG Vent. Rate : 066 BPM Atrial Rate : 066 BPM P-R Int : 000 ms QRS Dur : 072 ms QT Int : 430 ms P-R-T Axes : 000 004 048 degrees QTc Int : 450 ms Poor data quality, interpretation may be adversely affected Normal sinus rhythm Poor R wave progression, consider anterior VT vs. lead placement vs. LVH Abnormal ECG When compared with ECG of 02-FEB-2021 18:49, (unconfirmed) No significant change Confirmed by Scot Madrid ([id number]) on 02/03/2021 3:25:49 PM Referred By: Chiquis Barragan Confirmed By:Scot Madrid
[2021-02-03] MEDS ORDERED: ROSUVASTATIN CALCIUM 20 MG TAB PO SCH (18:00)
[2021-02-04] MEDS ORDERED: CALCITRIOL 0.25 MCG CAPSULE PO SCH (09:00)
[2021-02-04] MEDS ORDERED: CINACALCET HCL 30 MG TAB PO SCH (09:00)
== END 2021-02-03 13:18 | disposition home or self-care (01) ==
LOC: ED 12:38 → 2S 15:58 → INTOOBSV 15:58 → SUATTDRO 15:58 → 2S 21:05

== ENCOUNTER 2021-11-16 03:18 | Inpatient (IN) ==
[2021-11-16] MEDS ORDERED: FAMOTIDINE 20MG IV PUSH 20 MG/5 ML SYR IV STA (03:39)
[2021-11-16] MEDS ORDERED: SODIUM CHLORIDE 0.9% 500 ML IV STA (03:39)
[2021-11-16] MEDS ORDERED: ONDANSETRON INJ 2 MG/ML 2 ML VIAL IV STA (03:39)
--- NOTE | 2021-11-16 03:44 | Emergency Department Note ---
History of Present Illness General Chief complaint: Diarrhea Stated complaint: DIARRHEA,ABDOMINAL PAIN,SHAKING Time Seen by Provider: 11/16/21 03:30 History of Present Illness This 76-year-old with a history of bladder cancer no longer on chemotherapy presents to the ER complaining of abdominal discomfort nausea and diarrhea for the past few days Location: Abdomen Quality: Nauseated Severity: Moderate Duration: Past 2 days Timing: Started 2 days ago Context: Symptoms got much worse and patient came in Modifying factors: better with nothing; worse with eating patient states everything just runs right through him. The diarrhea is got much worse. He has a history of GI bleed earlier this year and required multiple units of blood. Patient denies any black or blood in the stool. No recent ant ibiotics. No well water. Patient also feels quite nauseated. He has a right nephrostomy tube present. No problems with his urine. Patient denies chest pain, dyspnea, fevers, flulike illness. No bad smell to the diarrhea. Home Medications Medication Instructions Recorded Confirmed Type dulaglutide 0.75 mg/0.5 mL 0.75 mg (0.5 mL) subcut WEEKLY #2 09/19/19 10/30/21 Rx subcutaneous pen injector mL (Trulicity) albuterol sulfate 90 mcg/actuation 2 puff inhalation QID PRN 05/22/20 10/30/21 Rx aerosol inhaler (Ventolin HFA) shortness of breath or wheezing #18 grams calcitriol 0.25 mcg capsule 0.25 mcg PO QPM 07/17/21 10/30/21 History metoprolol succinate 100 mg 100 mg PO QPM #90 tabs 07/30/21 10/30/21 Rx tablet,extended release 24 hr rosuvastatin 5 mg tablet 5 mg PO DAILY #90 tabs 08/21/21 10/30/21 Rx cinacalcet 30 mg tablet (Sensipar) 30 mg PO 3XWK 09/18/21 10/30/21 History amlodipine 2.5 mg tablet 2.5 mg PO DAILY 09/23/21 10/30/21 History allopurinol 300 mg tablet 300 mg PO DAILY #90 tabs 10/12/21 10/30/21 Rx levothyroxine 100 mcg tablet 100 mcg PO QAM #90 tabs 10/12/21 10/30/21 Rx (Synthroid) fluticasone propionate 50 2 spray intranasal DAILY #15.8 mL 10/19/21 10/30/21 Rx mcg/actuation nasal spray,suspension cetirizine 10 mg tablet 10 mg PO BID #30 tabs 10/30/21 10/30/21 Rx prednisone 10 mg tablet 10 mg PO .COMPLEX #20 tabs 10/30/21 10/30/21 Rx Allergies Allergy/AdvReac Type Severity Reaction Status Date / Time Iodinated Contrast Media AdvReac Intermediate Hypertensio Verified 10/19/21 10:56 n atorvastatin [From Lipitor] AdvReac Mild muscle Verified 10/19/21 10:56 aches Past Med/Surg History Medical History Acid reflux Acute duodenal ulcer with hemorrhage Adenomatous polyp of colon Anemia Atrial fibrillation with rapid ventricular response Benign essential hypertension Benign prostatic hyperplasia 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 Blood loss anemia CAD (coronary atherosclerotic disease) Chronic kidney disease STAGE IV Chronic obstructive pulmonary disease Diabetes mellitus, type 2 Diarrhea Hearing loss History of blood transfusion 01/2021 [facility] History of stroke without residual deficits OCCURRED DURING AAA REPA[place] [facility] [place] 5[place]6 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-NO ISSUES SINCE Hyperlipidemia Hypothyroidism Past myocardial infarction Port-A-Cath in place Secondary hyperparathyroidism Subclavian artery aneurysm Vocal fold paralysis, left Surgical History H/O arthroscopy of knee H/O transurethral destruction of bladder lesion 08/17/2019 History of biopsy of bladder History of cardiac cath History of carpal tunnel release RIGHT History of cataract surgery BILATERAL History of colonoscopy History of cystoscopy 01/19/2020 History of lymph node biopsy Nephrostomy status R PCN placed by IR 10/23/2021 S/P AAA (abdominal aortic aneurysm) repair Status post biopsy of kidney Family History Grandfather , in his eighties No problems noted. Grandmother , young cause unknown No problems noted. Grandfather , in his eighties No problems noted. Grandmother , did have breast cancer but in her eighties of unknown cause No problems noted. Father , He in his sixties had had three strokes and high blood pressure He had had a kidney removed perhaps from cancer Stroke Mother , in her mid seventies complications from smoking No problems noted. Daughter Age: 50 No problems noted. Daughter Age: 47 No problems noted. Daughter Age: 42 No problems noted. Brother , at age 7 of a stroke Stroke Grandmother (Maternal) Breast cancer Other No family history of adverse response to anesthesia No family history of bleeding disorder Denies family history of Ovarian cancer Prostate cancer Myocardial infarction Colorectal cancer Social History Smoking Status: Current every day smoker Tobacco Type: Cigarettes Age Started Using Tobacco: 10; packs per day: 0.5; Cigarettes Per Day: 10; Second Hand Exposure: No; Hx Alcohol Use: No Hx Substance Use: No Preferred Language: Croatian Communication Ability: Effective Visual Impairment: Partially Limited Hearing Ability: Use of Hearing Aid 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 Beliefs That Will Affect Care: None marital status: Current Living Situation: Alone current occupational status: retired How many Children do You have: 3 Feels Safe at Home: Yes Childhood Exposure to Second-Hand Smoke: Yes (Both parents smoked ) Diet Comment: Diabetic diet caffeine: Yes (Coffee tea) during the past year weight has: remained stable Dental Care, Regularly: No Physical Activity Frequency: Does not Exercise Seatbelt Use: always Sunscreen Use: No Do you think of yourself as: straight/heterosexual Assistive Devices: Denture - Upper, Denture - Lower, Glasses and Hearing Aid - Bilateral Review of Systems A total of 10 systems reviewed and were otherwise negative Physical Exam Vital Signs Vital Signs - 24 hr 11/16/21 03:22 11/16/21 04:29 11/16/21 05:00 Temperature 36.7 C Temperature Source Temporal Artery Scan Pulse Rate 82 69 69 Respiratory Rate 20 20 17 Respiratory Effort / Characteristics Non-Labored Spontaneous Respiratory Depth Normal Blood Pressure 155/85 H 155/82 H 177/91 H Blood Pressure Mean 108 106 119 Blood Pressure Position Sitting Pulse Oximetry 97 100 99 Oxygen Delivery Method Room Air Room Air Room Air Sepsis Recent Fever Within 48 Hours No Sepsis New/Unexplained Change in Mental Status N/A Sepsis Action Taken by Nursing No Action Required VITALS: Vitals are noted on the nurse's note and reviewed by myself. Vital signs stable. GENERAL: Pleasant gentleman, in no acute distress, nondiaphoretic, well- developed well-nourished. SKIN: The skin was without rashes, erythema, edema, or bruising. There is no tenting of the skin. Capillary reflex less than 2 seconds. HEAD: Normocephalic atraumatic. EARS: External auditory canals clear, EYES: Pupils equal round and reactive to light and accommodation. Conjunctivae without injection, sclerae without icterus. Extraocular movements intact. NOSE: Patent, turbinates without inflammation or discharge. MOUTH: Mucous membranes moist. Pharynx without erythema or exudate. Uvula midline. Airway patent. Tongue does not deviate. NECK: Supple without nuchal rigidity. No lymphadenopathy. No thyromegaly. Cervical spine is nontender. No JVD. HEART: Regular rate and rhythm LUNGS: Clear to auscultation bilaterally without wheezes, rales or rhonchi. No retractions or accessory muscle use. ABDOMEN: Positive bowel sounds x 4. Normal tympanic percussion. Soft, mild diffuse tenderness, without masses or organomegaly. Arteaga sign negative. No guarding or rebound tenderness. No CVA tenderness Rectal exam: Dark brown stool guaiac positive nurse chicken raiser present MUSCULOSKELETAL: No muscle atrophy, erythema, or edema noted. NEURO: Patient was alert and oriented to person place and time. Normal sensation to light and sharp touch. No focal neurological deficits. Course Administered Medications Discontinued Medications Sodium Chloride (Nss) 500 mls @ 999 mls/hr IV .Q31M STA Stop: 11/16/21 04:09 Last Infusion: 11/16/21 04:59 Dose: 0 mls/hr Documented By: Admin: 11/16/21 04:28 Dose: 999 mls/hr Documented By: DP Famotidine (Pepcid 20mg Iv Push) 20 mg in 5 mls @ 2.5 mls/min IV NOW STA Stop: 11/16/21 03:40 Last Admin: 11/16/21 04:08 Dose: 2.5 mls/min Documented By: DP Pantoprazole Sodium 80 mg/ (Dextrose) 100 mls @ 400 mls/hr IV ONE STA Stop: 11/16/21 04:48 Last Admin: 11/16/21 05:20 Dose: 400 mls/hr Documented By: MARISELA Ondansetron HCl (Ondansetron Inj 2 Mg/Ml 2 Ml Vial) 4 mg IV NOW STA Stop: 11/16/21 03:40 Last Admin: 11/16/21 04:11 Dose: 4 mg Documented By: MARISELA Phenazopyridine HCl (Phenazopyridine Hcl 200 Mg Tab) 200 mg PO NOW STA Stop: 11/16/21 05:11 Last Admin: 11/16/21 05:19 Dose: 200 mg Documented By: MARISELA Phenazopyridine HCl (Phenazopyridine Hcl 200 Mg Tab) 200 mg PO NOW STA Stop: 11/16/21 05:13 Last Admin: 11/16/21 05:20 Dose: Not Given Documented By: MARISELA Medical Decision Making Medical Records Attestation: I reviewed the patient's medical records. Home Medications Current Medication List: was personally reviewed by me Laboratory Data Attestation: I reviewed the patient's lab results. Result diagrams: 11/16/21 03:50 11/16/21 03:50 Lab Results 11/16/21 11/16/21 11/16/21 Range/Units 03:50 03:50 03:58 WBC 5.91 (4.8-10.8) K/ul RBC 2.54 L (4.63-6.08) M/uL Hgb 7.7 L (14.0-18.0) g/dl POC Hgb 8.2 L (14.0-18.0) g/dl Hct 24.9 L (40.1-51.0) % POC Hct 24 L (42-52) % MCV 98.0 (80.0-100.0) fL MCH 30.3 (25.0-34.0) pg MCHC 30.9 L (32.0-36.0) g/dL RDW Std Deviation 58.9 H (36.4-46.3) fL RDW Coeff of Josie 16.6 H (11.5-14.5) % Plt Count 152 (130-400) K/uL MPV 11.6 (9.4-12.4) fL Immature Gran % (Auto) 0.3 % Neut % (Auto) 73.8 % Lymph % (Auto) 10.2 % Day % (Auto) 9.8 % Eos % (Auto) 5.1 % Baso % (Auto) 0.8 % Neut # (Auto) 4.36 (1.4-6.5) K/uL Lymph # (Auto) 0.60 L (1.2-3.4) K/uL Day # (Auto) 0.58 (0.24-0.82) K/uL Eos # (Auto) 0.30 (0-0.50) K/uL Baso # (Auto) 0.05 (0-0.2) K/uL Immature Gran # (Auto) 0.02 (0.00-0.02) K/uL Polychromasia 1+ Tear Drop Cells 1+ Ovalocytes 1+ POC Sodium 143 (135-144) mmol/L Sodium 142 (136-145) mmol/L POC Potassium 4.6 (3.3-5.0) mmol/L Potassium 4.5 (3.5-5.1) mmol/L POC Chloride 114 H (101-112) mmol/L Chloride 112 H (98-107) mmol/L Carbon Dioxide 20 L (21-32) mmol/L POC Total CO2 19 L (24-31) mmol/L Anion Gap 10 (3-11) POC Anion Gap 16.0 (16-25) mmol/L POC BUN 66 H (7-18) mg/dl BUN 67 H (6-23) mg/dl Creatinine 4.26 H (0.6-1.4) mg/dl POC Creatinine 5.1 H* (0.6-1.3) mg/dl Est Cr Clr Drug Dosing 12.7 ml/min Est GFR ( Amer) 14.8 ml/min Est GFR (Non-Af Amer) 12.8 ml/min BUN/Creatinine Ratio 15.7 (10-20) Glucose 113 H (70-99(Fasting)) mg/dl POC Glucose (other) 115 H (70-99) mg/dl Calcium 7.5 L (8.5-10.1) mg/dl POC Ioniz Calcium Dave 1.09 L (1.12-1.32) mmol/l Phosphorus 4.8 (2.5-4.9) mg/dl Magnesium 1.4 L (1.7-2.4) mg/dl Total Bilirubin 0.3 (0.2-1.0) mg/dl AST 9 L (13-39) U/L ALT 8 (7-52) U/L Alkaline Phosphatase 74 (34-104) U/L Total Protein 5.7 L (6.0-8.3) gm/dl Albumin 3.0 L (3.4-5.0) gm/dl Globulin 2.7 (2.5-4.0) gm/dl Albumin/Globulin Ratio 1.1 (0.9-2) Lipase 70 (11-82) U/L Urine Color Urine Appearance (Clear) Urine pH (4.5-7.5) Ur Specific [place] (1.000-1.030) Urine Protein (Negative) Urine Glucose (UA) (Negative) Urine Ketones (Negative) Urine Blood (Negative) Urine Nitrite (Negative) Urine Bilirubin (Negative) Urine Urobilinogen (Negative) Ur Leukocyte Esterase (Negative) Urine WBC (Auto) (0-5) /hpf Urine RBC (Auto) (0-4) /hpf U Hyaline Cast (Auto) (0-5) /lpf U Epithel Cells (Auto) (0-5) /lpf Urine Bacteria (Auto) (Negative) Urine Yeast SARS-CoV-2, RNA, NAAT (NEGATIVE) 11/16/21 11/16/21 Range/Units 04:22 05:03 WBC (4.8-10.8) K/ul RBC (4.63-6.08) M/uL Hgb (14.0-18.0) g/dl POC Hgb (14.0-18.0) g/dl Hct (40.1-51.0) % POC Hct (42-52) % MCV (80.0-100.0) fL MCH (25.0-34.0) pg MCHC (32.0-36.0) g/dL RDW Std Deviation (36.4-46.3) fL RDW Coeff of Josie (11.5-14.5) % Plt Count (130-400) K/uL MPV (9.4-12.4) fL Immature Gran % (Auto) % Neut % (Auto) % Lymph % (Auto) % Day % (Auto) % Eos % (Auto) % Baso % (Auto) % Neut # (Auto) (1.4-6.5) K/uL Lymph # (Auto) (1.2-3.4) K/uL Day # (Auto) (0.24-0.82) K/uL Eos # (Auto) (0-0.50) K/uL Baso # (Auto) (0-0.2) K/uL Immature Gran # (Auto) (0.00-0.02) K/uL Polychromasia Tear Drop Cells Ovalocytes POC Sodium (135-144) mmol/L Sodium (136-145) mmol/L POC Potassium (3.3-5.0) mmol/L Potassium (3.5-5.1) mmol/L POC Chloride (101-112) mmol/L Chloride (98-107) mmol/L Carbon Dioxide (21-32) mmol/L POC Total CO2 (24-31) mmol/L Anion Gap (3-11) POC Anion Gap (16-25) mmol/L POC BUN (7-18) mg/dl BUN (6-23) mg/dl Creatinine (0.6-1.4) mg/dl POC Creatinine (0.6-1.3) mg/dl Est Cr Clr Drug Dosing ml/min Est GFR ( Amer) ml/min Est GFR (Non-Af Amer) ml/min BUN/Creatinine Ratio (10-20) Glucose (70-99(Fasting)) mg/dl POC Glucose (other) (70-99) mg/dl Calcium (8.5-10.1) mg/dl POC Ioniz Calcium Dave (1.12-1.32) mmol/l Phosphorus (2.5-4.9) mg/dl Magnesium (1.7-2.4) mg/dl Total Bilirubin (0.2-1.0) mg/dl AST (13-39) U/L ALT (7-52) U/L Alkaline Phosphatase (34-104) U/L Total Protein (6.0-8.3) gm/dl Albumin (3.4-5.0) gm/dl Globulin (2.5-4.0) gm/dl Albumin/Globulin Ratio (0.9-2) Lipase (11-82) U/L Urine Color Yellow Urine Appearance Turbid A (Clear) Urine pH 6.5 (4.5-7.5) Ur Specific [place] 1.015 (1.000-1.030) Urine Protein 3+ H (Negative) Urine Glucose (UA) Negative (Negative) Urine Ketones Negative (Negative) Urine Blood 2+ H (Negative) Urine Nitrite Negative (Negative) Urine Bilirubin Negative (Negative) Urine Urobilinogen Negative (Negative) Ur Leukocyte Esterase 3+ H (Negative) Urine WBC (Auto) >30 H (0-5) /hpf Urine RBC (Auto) 0-4 (0-4) /hpf U Hyaline Cast (Auto) 0 (0-5) /lpf U Epithel Cells (Auto) 10-20 H (0-5) /lpf Urine Bacteria (Auto) Negative (Negative) Urine Yeast Not Reportable SARS-CoV-2, RNA, NAAT NEGATIVE (NEGATIVE) Imaging Data Attestation: I personally reviewed and interpreted this imaging study as follows: MDM Narrative Prior records/ancillary studies reviewed. Triage Nursing notes reviewed. Additional history obtained from the family. The patient's history was concerning for nausea, diarrhea, and abdominal pain. Differential diagnosis: Etiologies such as gastroenteritis, food borne illness, infections, appendicitis, diverticulitis, inflammatory bowel disease, obstruction, GI bleed, biliary pathology, as well as others were entertained. Physical examination findings: As above. Abdominal examination revealed mild diffuse tenderness. Vital signs reviewed and revealed stable. ER treatment provided: IV hydration NSS. Zofran, Pepcid, Protonix, magnesium On reassessment the patient felt better. Patient was tolerating p.o. intake. Diagnostics interpretation by me: EKG ordered for weakness EKG: Normal sinus, Q waves in the inferior leads, no acute ST-T wave changes. Impression normal sinus rhythm with Q waves in the inferior leads interpreted by myself I think arrhythmia is unlikely. EKG shows normal sinus rhythm with no interval abnormalities such as QT prolongation or WPW. There are no findings to suggest Brugada syndrome. Cardiac monitoring in the emergency department reveals no tachycardic or bradycardic dysrhythmia. Hypertrophic cardiomyopathy was considered but there are no clear historical elements pointing toward this. EKG is not suggestive. The QRS voltage is not extremely large The labs revealed worsening anemia, stable creatinine per chart review Hemoccult positive Hypomagnesia Imaging studies: Preliminary Findings Only See Final Report For Complete Findings CT ABDOMEN & PELVIS Without Contrast: Limited evaluation in the absence of contrast. Thickening of the and rectum extending from the transverse colon to the rectum. This is most prominent at the rectum with adjacent inflammatory change. Findings are concerning for proctocolitis. No evidence of bowel obstruction. No evidence of free air. Hiatal hernia with thickening which may be reactive in nature. Embolization retried the expected location of the gastroduodenal artery. Loop of bowel within the falciform ligament. Right nephroureteral stent noted with proximal coil in the right renal pelvis and distal coil within the bladder. Adjacent stranding noted which may be reactive in nature. Infection not excluded. No evidence of hydronephrosis. Diffuse irregular bladder wall thickening. Findings may relate to reported history of neoplasm. Contour abnormality within the inferior pole the posterior left kidney measuring up to 2.6 cm. Consider MRI if there is further concern. Radiologist: Zeus Vang MD Consultation: A consultation was placed with the hospitalist. The case was discussed and diagnostics were reviewed. The patient was evaluated in the ER for further treatment. This appears to be consistent with diarrhea with blood in the stool worsening anemia and hypomagnesia. Patient was typed and screened. He was medicated as above. He was given magnesium. Medicine will evaluate for admission. By the evaluation outlined above emergent etiologies such as appendicitis, diverticulitis, obstruction, cardiac sources, mesenteric ischemia, aortic pathology, inflammatory bowel disease, renal colic, PUD, biliary pathology, UTI, as well as others were deemed relatively unlikely. The pt informed about the findings as listed above. All questions were answered and pleased with the treatment. The chart was completed utilizing [employer] Speech voice recognition software. Grammatical errors, random word insertions, pronoun errors, and incomplete sentences are an occassional consequence of this system due to software l imitations, ambient noise, and hardware issues. Any formal questions or concerns about the content, text, or information contained within the body of this dictation should be directly addressed to the physician virtual customer assistant for clarification. Impression & Plan Acute GI bleeding, Diarrhea, Hypomagnesemia Discharge Plan Visit Data Chief Complaint: Diarrhea Stated Complaint: DIARRHEA,ABDOMINAL PAIN,SHAKING ED Provider: Felecia Moses ED Midlevel Provider: Hilda Russo Discharge Problem: Acute GI bleeding, Diarrhea, Hypomagnesemia Patient Disposition: Admitted As Inpatient Condition: Fair
--- NOTE | 2021-11-16 04:13 | Emergency Department Note ---
ED Visit Note I agree with the diagnosis and management decisions and have been personally involved in the case. Please see Marcelina Russo PA-C's notes for further details of the history, physical and visit. .
[2021-11-16 04:14] LABS: iSTAT Creatinine 5.1 mg/dl (0.6-1.3); iSTAT Hemoglobin 8.2 g/dl (14.0-18.0); iSTAT Ionized Calcium 1.09 mmol/l (1.12-1.32); iSTAT Potassium 4.6 mmol/L (3.3-5.0)
[2021-11-16 04:18] LABS: Basophils # (auto) 0.05 K/uL (0-0.2); Basophils % (auto) 0.8 %; Eosinophils % (auto) 5.1 %; Hematocrit (blood only) 24.9 % (40.1-51.0); Hemoglobin 7.7 g/dl (14.0-18.0); Immature Granulocytes # (auto) 0.02 K/uL (0.00-0.02); Immature Granulocytes % (auto) 0.3 %; Lymphocytes % (auto) 10.2 %; Mean Corpuscular Hemoglobin 30.3 pg (25.0-34.0); Mean Corpuscular Hgb Conc 30.9 g/dL (32.0-36.0); Mean Platelet Volume 11.6 fL (9.4-12.4); Monocytes # (auto) 0.58 K/uL (0.24-0.82); Monocytes % (auto) 9.8 %; Neutrophils # (auto) 4.36 K/uL (1.4-6.5); Neutrophils % (auto) 73.8 %; Platelet Count 152 K/uL (130-400); RDW Coefficient of Variation 16.6 % (11.5-14.5); RDW Standard Deviation 58.9 fL (36.4-46.3); Red Blood Count 2.54 M/uL (4.63-6.08); White Blood Count 5.91 K/ul (4.8-10.8)
[2021-11-16] MEDS ORDERED: PANTOprazole 80 MG in DEXTROSE 5% 100 ML IV STA (04:34)
[2021-11-16 04:38] LABS: Albumin Globulin Ratio 1.1 (0.9-2); BUN Creatinine Ratio 15.7 (10-20); Bilirubin,Total 0.3 mg/dl (0.2-1.0); Calcium 7.5 mg/dl (8.5-10.1); Creatinine Clr Calc Pharmacy 12.7 ml/min; Est GFR (African American) 14.8 ml/min; Est GFR (Non-African American) 12.8 ml/min; Globulin 2.7 gm/dl (2.5-4.0); Magnesium 1.4 mg/dl (1.7-2.4); Phosphorus 4.8 mg/dl (2.5-4.9); Potassium 4.5 mmol/L (3.5-5.1); Total Protein 5.7 gm/dl (6.0-8.3)
[2021-11-16 04:43] LABS: Ovalocytes 1+; Polychromasia 1+; Tear Drop Cells 1+
[2021-11-16] MEDS: MAGNESIUM SULFATE / D5W 1 GM/100 ML BAG IV SCH ×2 (05:00→07:07)
[2021-11-16 05:05] LABS: Appearance Urine Turbid (Clear); Bacteria Urine Automated Negative (Negative); Bilirubin Urine Negative (Negative); Blood Urine 2+ (Negative); Color Urine Yellow; Glucose Urine UA Negative (Negative); Ketones Urine Negative (Negative); Leukocyte Esterase Urine 3+ (Negative); Nitrite Urine Negative (Negative); Protein Urine 3+ (Negative); Specific Gravity Urine 1.015 (1.000-1.030); Urobilinogen Urine Negative (Negative); WBC Urine Automated >30 /hpf (0-5); pH Urine 6.5 (4.5-7.5)
[2021-11-16] MEDS ORDERED: PHENAZOPYRIDINE HCL 200 MG TAB PO STA ×2 (05:10→05:12)
[2021-11-16 05:27] LABS: Cast Urine Automated 0 /lpf (0-5); RBC Urine Automated 0-4 /hpf (0-4)
--- NOTE | 2021-11-16 05:41 | History & Physical Report ---
Date of Service November 16, 2021 Assessment & Plan (1) Acute GI bleeding: Plan: Acute GI bleeding/proctocolitis- CT with inflammation of colon from transverse colon to rectum No history of C. difficile, and no recent antibiotic exposures No questionable food ingestions Stool PCR ordered and pending H&H every 6 hours Patient reports having diarrhea ever since he had the acute duodenal ulcer with hemorrhaging on 09/09/2021 at [facility]. He reports needing more than 10 units of PRBCs during that admission Patient was scheduled for endoscopy on 11/28/2021 with [facility] gastroenterology, who will be consulted this admission Type and screen pending The symptoms that brought him in today, were acute shaking that developed after his last BM this morning while at home (2) Proctocolitis with rectal bleeding: Plan: Zosyn 4.5 g IV every 8 hours, to cover proctocolitis and UTI infections, until further results of studies pending (3) Diarrhea: Plan: Chronic diarrhea as noted (4) Hypomagnesemia: Plan: Magnesium 1.4 upon admission Has ordered 2 g magnesium sulfate IV from the ED Repeat laboratories in the a.m. (5) Chronic kidney disease, stage IV (severe): Plan: Creatinine 4.26 upon admission, with range 4.08-6.53 Follow laboratories every morning Follows with Dr. Cody Garcia nephrology (6) Malignant neoplasm of lateral wall of bladder: Plan: Bladder cancer/UTI/right nephroureteral stent/bladder wall thickness- Follow urine culture and sensitivity Antibiotics as above (7) UTI (urinary tract infection): (8) Hypertension: Plan: While n.p.o., will hold amlodipine 2.5 mg daily, metoprolol succinate 100 mg daily Lopressor 5 mg IV every 4 hours as needed systolic blood pressure greater than 160 (9) Acute duodenal ulcer with hemorrhage: Plan: Acute duodenal ulcer with hemorrhage/GERD-detected on 09/09/2021 at [facility] Required at least 10 units PRBCs per patient's account Protonix 40 mg IV twice daily (10) Subclavian artery aneurysm: Plan: He was just seen at [facility] last week, and reportedly is to undergo repair, but he was going to wait until January to allow healing from previous duodenal ulcer (11) Diabetes mellitus, type 2: Plan: Hold dulaglutide Place on Accu-Cheks before meals and at bedtime/every 6 hours, with NovoLog coverage per scale (12) Secondary hyperparathyroidism: (13) Hyperlipidemia: Plan: Holding rosuvastatin while n.p.o. (14) Hypothyroidism: Plan: Holding levothyroxine 1 p.o. (15) CAD (coronary atherosclerotic disease): Plan: No acute issues (16) Benign prostatic hyperplasia: Plan: Monitor urine output (17) Acid reflux: Plan: See above History of Present Illness Chief Complaint: The patient presents to the emergency department with 3 days of persistent diarrhea. After a diarrheal episode early this morning, he developed severe shakes, which scared him, and he and his came to the emergency department for assessment Primary Care Provider: Hilda Berry MD The patient is a 76-year-old male with a past medical history including SNHL, ETD, chronic diarrhea, acute duodenal ulcer with hemorrhage requiring transfusion, blood loss anemia, left vocal cord paralysis, radiation cystitis, CKD stage IV, hypertension, subclavian artery aneurysm, bladder cancer metastasized to lung, diabetes mellitus type 2, past [place], secondary hyperparathyroidism, kidney stones, status post AAA repair, hypothyroidism, hyperlipidemia, history of stroke without residual deficits, gout, CAD, BPH, acid reflux and malignant neoplasm of lateral wall of bladder. The patient repo rts that he has had chronic diarrhea since his duodenal ulcer bleeding on 09/09/2021 at [facility]. He reports being scheduled for a repeat endoscopy on 11/28/2021 with [facility], having recently been seen by RHODA Montelongo. Allergies Allergy/AdvReac Type Severity Reaction Status Date / Time Iodinated Contrast Media AdvReac Intermediate Hypertensio Verified 10/19/21 10:56 n atorvastatin [From Lipitor] AdvReac Mild muscle Verified 10/19/21 10:56 aches Home Medications Medication Instructions Recorded Confirmed Type dulaglutide 0.75 mg/0.5 mL 0.75 mg (0.5 mL) subcut WEEKLY #2 09/19/19 10/30/21 Rx subcutaneous pen injector mL (Trulicity) albuterol sulfate 90 mcg/actuation 2 puff inhalation QID PRN 05/22/20 10/30/21 Rx aerosol inhaler (Ventolin HFA) shortness of breath or wheezing #18 grams calcitriol 0.25 mcg capsule 0.25 mcg PO QPM 07/17/21 10/30/21 History metoprolol succinate 100 mg 100 mg PO QPM #90 tabs 07/30/21 10/30/21 Rx tablet,extended release 24 hr rosuvastatin 5 mg tablet 5 mg PO DAILY #90 tabs 08/21/21 10/30/21 Rx cinacalcet 30 mg tablet (Sensipar) 30 mg PO 3XWK 09/18/21 10/30/21 History amlodipine 2.5 mg tablet 2.5 mg PO DAILY 09/23/21 10/30/21 History allopurinol 300 mg tablet 300 mg PO DAILY #90 tabs 10/12/21 10/30/21 Rx levothyroxine 100 mcg tablet 100 mcg PO QAM #90 tabs 10/12/21 10/30/21 Rx (Synthroid) fluticasone propionate 50 2 spray intranasal DAILY #15.8 mL 10/19/21 10/30/21 Rx mcg/actuation nasal spray,suspension cetirizine 10 mg tablet 10 mg PO BID #30 tabs 10/30/21 10/30/21 Rx prednisone 10 mg tablet 10 mg PO .COMPLEX #20 tabs 10/30/21 10/30/21 Rx Past Med/Surg History Medical History Acid reflux Acute duodenal ulcer with hemorrhage Adenomatous polyp of colon Anemia Atrial fibrillation with rapid ventricular response Benign essential hypertension Benign prostatic hyperplasia 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 Blood loss anemia CAD (coronary atherosclerotic disease) Chronic kidney disease STAGE IV Chronic obstructive pulmonary disease Diabetes mellitus, type 2 Diarrhea Hearing loss History of blood transfusion 01/2021 [facility] History of stroke without residual deficits [place]CCUR[place] D[place] [facility] 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-NO ISSUES SINCE Hyperlipidemia Hypothyroidism Past myocardial infarction Port-A-Cath in place Secondary hyperparathyroidism Subclavian artery aneurysm Vocal fold paralysis, left Surgical History H/O arthroscopy of knee H/O transurethral destruction of bladder lesion 08/17/2019 History of biopsy of bladder History of cardiac cath History of carpal tunnel release RIGHT History of cataract surgery BILATERAL History of colonoscopy History of cystoscopy 01/19/2020 History of lymph node biopsy Nephrostomy status R PCN placed by IR 10/23/2021 S/P AAA (abdominal aortic aneurysm) repair Status post biopsy of kidney Family History Grandfather , in his eighties No problems noted. Grandmother , young cause unknown No problems noted. Grandfather , in his eighties No problems noted. Grandmother , did have breast cancer but in her eighties of unknown cause No problems noted. Father , He in his sixties had had three strokes and high blood pressure He had had a kidney removed perhaps from cancer Stroke Mother , in her mid seventies complications from smoking No problems noted. Daughter Age: 50 No problems noted. Daughter Age: 47 No problems noted. Daughter Age: 42 No problems noted. Brother , at age 7 of a stroke Stroke Grandmother (Maternal) Breast cancer Other No family history of adverse response to anesthesia No family history of bleeding disorder Denies family history of Ovarian cancer Prostate cancer Myocardial infarction Colorectal cancer Social History Smoking Status: Current every day smoker Tobacco Type: Cigarettes Age Started Using Tobacco: 10; packs per day: 0.5; Cigarettes Per Day: 10; Second Hand Exposure: No; Hx Alcohol Use: No Hx Substance Use: No Preferred Language: Malay Communication Ability: Effective Visual Impairment: Partially Limited Hearing Ability: Use of Hearing Aid Bicycle Designer Required: No Beliefs That Will Affect Care: None marital status: Current Living Situation: Alone current occupational status: retired How many Children do You have: 3 Feels Safe at Home: Yes Childhood Exposure to Second-Hand Smoke: Yes (Both parents smoked ) Diet Comment: Diabetic diet caffeine: Yes (Coffee tea) during the past year weight has: remained stable Dental Care, Regularly: No Physical Activity Frequency: Does not Exercise Seatbelt Use: always Sunscreen Use: No Do you think of yourself as: straight/heterosexual Assistive Devices: Denture - Upper, Denture - Lower, Glasses and Hearing Aid - Bilateral Review of Systems Review of Systems: The patient denies chest pain, palpitations, shortness of breath, dyspnea on exertion, cough, lower extremity swelling, sore throat, fevers, chills, sweats, nausea, vomiting blood in urine, lightheadedness, dizziness, headache, memory loss, loss of consciousness, imbalance, focal weakness, numbness or tingling in arms or legs, generalized arthralgias or myalgias, neck pain, or night sweats. The review of systems is otherwise negative other than for that already noted above, and at least 10 systems have been reviewed. Physical Exam Physical Exam: The patient is awake, alert and oriented 3, well developed and well nourished, normocephalic and atraumatic, lying in bed and in no acute distress. HEENT--PERRL, EOMI, mucous membranes and oropharynx normal. Neck--supple. No JVD. No bruits. Thyroid normal, trachea midline, no adenopathy. Heart--normal S1 and S2. No murmurs, rubs or gallops. Lungs--clear bilaterally, no respiratory distress, no accessory muscle use. Abdomen--hyperactive bowel sounds and soft. Nontender. Nondistended. Extremities--no cyanosis or clubbing. No edema. Dermatologic--normal skin turgor, normal color, no abnormal lymph nodes, no rash. Neurologic--cranial nerves II through XII grossly intact. Rheumatologic--normal range of motion. Psychiatric--normal affect. Results & Data Results & Data ([facility]) Vital Signs (Past 12 Hours) Vital Signs Temp Pulse Resp BP Pulse Ox O2 Del Method 11/16/21 05:00 69 17 177/91 H 99 Room Air 11/16/21 04:29 69 20 155/82 H 100 Room Air 11/16/21 03:22 36.7 C 82 20 155/85 H 97 Room Air Laboratory Results Laboratory Results WBC 5.91 K/ul (4.8-10.8) 11/16/21 03:50 RBC 2.54 M/uL (4.63-6.08) L 11/16/21 03:50 Hgb 7.7 g/dl (14.0-18.0) L 11/16/21 03:50 POC Hgb 8.2 g/dl (14.0-18.0) L 11/16/21 03:58 Hct 24.9 % (40.1-51.0) L 11/16/21 03:50 POC Hct 24 % (42-52) L 11/16/21 03:58 MCV 98.0 fL (80.0-100.0) 11/16/21 03:50 MCH 30.3 pg (25.0-34.0) 11/16/21 03:50 MCHC 30.9 g/dL (32.0-36.0) L 11/16/21 03:50 RDW Std Deviation 58.9 fL (36.4-46.3) H 11/16/21 03:50 RDW Coeff of Josie 16.6 % (11.5-14.5) H 11/16/21 03:50 Plt Count 152 K/uL (130-400) 11/16/21 03:50 MPV 11.6 fL (9.4-12.4) 11/16/21 03:50 Immature Gran % (Auto) 0.3 % 11/16/21 03:50 Neut % (Auto) 73.8 % 11/16/21 03:50 Lymph % (Auto) 10.2 % 11/16/21 03:50 [place] % (Auto) 9.8 % 11/16/21 03:50 Eos % (Auto) 5.1 % 11/16/21 03:50 Baso % (Auto) 0.8 % 11/16/21 03:50 Neut # (Auto) 4.36 K/uL (1.4-6.5) 11/16/21 03:50 Lymph # (Auto) 0.60 K/uL (1.2-3.4) L 11/16/21 03:50 [place] # (Auto) 0.58 K/uL (0.24-0.82) 11/16/21 03:50 Eos # (Auto) 0.30 K/uL (0-0.50) 11/16/21 03:50 Baso # (Auto) 0.05 K/uL (0-0.2) 11/16/21 03:50 Immature Gran # (Auto) 0.02 K/uL (0.00-0.02) 11/16/21 03:50 Polychromasia 1+ 11/16/21 03:50 Tear Drop Cells 1+ 11/16/21 03:50 Ovalocytes 1+ 11/16/21 03:50 POC Sodium 143 mmol/L (135-144) 11/16/21 03:58 Sodium 142 mmol/L (136-145) 11/16/21 03:50 POC Potassium 4.6 mmol/L (3.3-5.0) 11/16/21 03:58 Potassium 4.5 mmol/L (3.5-5.1) 11/16/21 03:50 POC Chloride 114 mmol/L (101-112) H 11/16/21 03:58 Chloride 112 mmol/L (98-107) H 11/16/21 03:50 Carbon Dioxide 20 mmol/L (21-32) L 11/16/21 03:50 POC Total CO2 19 mmol/L (24-31) L 11/16/21 03:58 Anion Gap 10 (3-11) 11/16/21 03:50 POC Anion Gap 16.0 mmol/L (16-25) 11/16/21 03:58 POC BUN 66 mg/dl (7-18) H 11/16/21 03:58 BUN 67 mg/dl (6-23) H 11/16/21 03:50 Creatinine 4.26 mg/dl (0.6-1.4) H 11/16/21 03:50 POC Creatinine 5.1 mg/dl (0.6-1.3) H* 11/16/21 03:58 Est Cr Clr Drug Dosing 12.7 ml/min 11/16/21 03:50 Est GFR ( Amer) 14.8 ml/min 11/16/21 03:50 Est GFR (Non-Af Amer) 12.8 ml/min 11/16/21 03:50 BUN/Creatinine Ratio 15.7 (10-20) 11/16/21 03:50 Glucose 113 mg/dl (70-99(Fasting)) H 11/16/21 03:50 POC Glucose (other) 115 mg/dl (70-99) H 11/16/21 03:58 Calcium 7.5 mg/dl (8.5-10.1) L 11/16/21 03:50 POC Ioniz Calcium Dave 1.09 mmol/l (1.12-1.32) L 11/16/21 03:58 Phosphorus 4.8 mg/dl (2.5-4.9) 11/16/21 03:50 Magnesium 1.4 mg/dl (1.7-2.4) L 11/16/21 03:50 Total Bilirubin 0.3 mg/dl (0.2-1.0) 11/16/21 03:50 AST 9 U/L (13-39) L 11/16/21 03:50 ALT 8 U/L (7-52) 11/16/21 03:50 Alkaline Phosphatase 74 U/L (34-104) 11/16/21 03:50 Total Protein 5.7 gm/dl (6.0-8.3) L 11/16/21 03:50 Albumin 3.0 gm/dl (3.4-5.0) L 11/16/21 03:50 Globulin 2.7 gm/dl (2.5-4.0) 11/16/21 03:50 Albumin/Globulin Ratio 1.1 (0.9-2) 11/16/21 03:50 Lipase 70 U/L (11-82) 11/16/21 03:50 Urine Color Yellow 11/16/21 04:22 Urine Appearance Turbid (Clear) A 11/16/21 04:22 Urine pH 6.5 (4.5-7.5) 11/16/21 04:22 Ur Specific [place] 1.015 (1.000-1.030) 11/16/21 04:22 Urine Protein 3+ (Negative) H 11/16/21 04:22 Urine Glucose (UA) Negative (Negative) 11/16/21 04:22 Urine Ketones Negative (Negative) 11/16/21 04:22 Urine Blood 2+ (Negative) H 11/16/21 04:22 Urine Nitrite Negative (Negative) 11/16/21 04:22 Urine Bilirubin Negative (Negative) 11/16/21 04:22 Urine Urobilinogen Negative (Negative) 11/16/21 04:22 Ur Leukocyte Esterase 3+ (Negative) H 11/16/21 04:22 Urine WBC (Auto) >30 /hpf (0-5) H 11/16/21 04:22 Urine RBC (Auto) 0-4 /hpf (0-4) 11/16/21 04:22 U Hyaline Cast (Auto) 0 /lpf (0-5) 11/16/21 04:22 U Epithel Cells (Auto) 10-20 /lpf (0-5) H 11/16/21 04:22 Urine Bacteria (Auto) Negative (Negative) 11/16/21 04:22 Urine Yeast Not Reportable 11/16/21 04:22 SARS-CoV-2, RNA, NAAT NEGATIVE (NEGATIVE) 11/16/21 05:03 Diagnostic Findings Preliminary Findings Only See Final Report For Complete Findings CT ABDOMEN & PELVIS Without Contrast: Limited evaluation in the absence of contrast. Thickening of the and rectum extending from the transverse colon to the rectum. This is most prominent at the rectum with adjacent inflammatory change. Findings are concerning for proctocolitis. No evidence of bowel obstruction. No evidence of free air. Hiatal hernia with thickening which may be reactive in nature. Embolization retried the expected location of the gastroduodenal artery. Loop of bowel within the falciform ligament. Right nephroureteral stent noted with proximal coil in the right renal pelvis and distal coil within the bladder. Adjacent stranding noted which may be reactive in nature. Infection not excluded. No evidence of hydronephrosis. Diffuse irregular bladder wall thickening. Findings may relate to reported history of neoplasm. Contour abnormality within the inferior pole the posterior left kidney measuring up to 2.6 cm. Consider MRI if there is further concern. Radiologist: Zeus Vang MD Study ready at 04:37 and initial results transmitted at 04:55 *This report constitutes a preliminary interpretation only. Non-acute findings felt to be unrelated to the clinical presentation may not be discussed in this report. The study will be interpreted and a final report will be generated by the local Radiologist the following shift. To reach the [facility] radiology department call [phone]. If a discrepancy is found between the preliminary and final interpretations of this study, please notify us via our Client Portal at [email or web address], under QA Exams. You can also fax this report with a description of the discrepancy, or include the final report, to our daytime fax number [phone]. If faxing, please indicate the severity of discrepancy using one of the following categories: [ ] 1 - Agree/Informational [ ] 2 - Unlikely to Affect Management [ ] 3 - Possible Eventual Change of Management [ ] 4 - Probable Immediate Change of Management Code Status & VTE Plan Code Status Full code VTE Prophylaxis Plan VTE Prophylaxis will be ordered: Yes PG Care Time/CCT Total # of Minutes Spent Total Time Spent with Patient: Total time spent is greater than 50% in coordination of care (as documented) at patient's floor/unit and/or counseling patient: Coding Level of Care Code 89916 Initial Inpt Care Lvl 3 Diagnoses Acute GI bleeding K92.2 Proctocolitis with rectal bleeding K52.9; K62.5 Diarrhea R19.7 Hypomagnesemia E83.42 Chronic kidney disease, stage IV (severe) N18.4 Malignant neoplasm of lateral wall of bladder C67.2 UTI (urinary tract infection) N39.0 Hypertension I10 Acute duodenal ulcer with hemorrhage K26.0 Subclavian artery aneurysm I72.8 Diabetes mellitus, type 2 E11.9 Secondary hyperparathyroidism N25.81 Hyperlipidemia E78.2 Hyperlipidemia type: mixed hyperlipidemia Hypothyroidism E03.9 Hypothyroidism type: acquired CAD (coronary atherosclerotic disease) I25.10 Benign prostatic hyperplasia N40.1; R33.8 Lower urinary tract symptom presence: symptoms present Lower urinary tract symptom detail: urinary retention Acid reflux K21.9 (1) Hyperlipidemia Hyperlipidemia type: mixed hyperlipidemia Qualified Code(s): E78.2 - Mixed hyperlipidemia (2) Hypothyroidism Hypothyroidism type: acquired Qualified Code(s): E03.9 - Hypothyroidism, unspecified (3) Benign prostatic hyperplasia Lower urinary tract symptom presence: symptoms present Lower urinary tract symptom detail: urinary retention Qualified Code(s): N40.1 - Benign prostatic hyperplasia with lower urinary tract symptoms; R33.8 - Other retention of urine
[2021-11-16] MEDS ORDERED: HEPARIN 100 UNIT/ML 5ML FLUSH ONE ×2 (05:56→06:05)
[2021-11-16] MEDS ORDERED: ONDANSETRON INJ 2 MG/ML 2 ML VIAL IV PRN (06:07)
[2021-11-16] MEDS ORDERED: ACETAMINOPHEN 325 MG TAB PO PRN (06:07)
[2021-11-16] MEDS ORDERED: GLUCOSE 10 TAB/TUBE PO PRN (06:10)
[2021-11-16] MEDS ORDERED: GLUCOSE 40% GEL 15 GM TUBE PO PRN (06:10)
[2021-11-16] MEDS ORDERED: DEXTROSE 50% 50 ML SYRINGE IV PRN (06:10)
[2021-11-16] MEDS ORDERED: GLUCAGON FOR INJ 1 MG VIAL SQ PRN (06:10)
[2021-11-16] MEDS ORDERED: CARBOHYDRATES FOR HYPOGLYCEMIA PO PRN (06:10)
[2021-11-16] MEDS ORDERED: SODIUM CHLORIDE 0.9% 1000ML 1,000 ML IV SCH (06:45)
[2021-11-16] MEDS ORDERED: PIPERACILLIN/TAZOBACTAM 4.5 GM in DEXTROSE 5% 100 ML IV SCH (06:45)
[2021-11-16] MEDS ORDERED: PIPERACILLIN/TAZOBACTAM 4.5 GM in DEXTROSE 5% 100 ML IV ONE (07:00)
[2021-11-16 07:29] LABS: Hemoglobin 8.1 g/dl (14.0-18.0)
[2021-11-16] MEDS: INSULIN ASPART PER UNIT SC SCH ×4 (08:05→21:31)
[2021-11-16] MEDS: METOPROLOL TARTRATE 1 MG/ML VIAL IV SCH ×2 (08:09→20:00)
[2021-11-16] MEDS: PANTOprazole 40 MG in SYRINGE 0 ML IV SCH ×2 (08:39→20:03)
--- NOTE | 2021-11-16 08:50 | CT Scan Report ---
ABDOMEN AND PELVIS CT WITHOUT CONTRAST CT DOSE: 356.19 mGy.cm HISTORY: Acute weakness with diarrhea. History of bladder carcinoma. pain, D, hx bladder CA TECHNIQUE: Multiaxial CT images of the abdomen and pelvis were performed without contrast. A dose lo wering technique was utilized adhering to the principles of ALARA. COMPARISON STUDY: PET CT 11/11/2021. FINDINGS: Cardiomegaly with coronary arterial calcifications. Trace pericardial effusion. The lung ba ses are generally clear. There is no pneumatosis or pneumoperitoneum. The unenhanced spleen, pancreas and gallbladder appear unremarkable. Hypodense bilateral adrenal gland lesions are redemonstrated an d appear stable from the prior study measuring up to 3.1 cm on the left and 1.3 cm on the right. Unre markable liver. Cortical thinning of the bilateral kidneys. Subcentimeter bilateral renal calcifications are redemons trated which are likely vascular. Nonobstructing renal calculi could appear similarly. Simple and mil dly hyperdense bilateral renal lesions are again noted suggestive of simple and complex cysts. These however are incompletely characterized on this noncontrast study. There is mild right-sided hydrouret eronephrosis with right-sided percutaneous nephrostomy which appears to be in satisfactory positionin g. Mild urothelial thickening of the right renal collecting system and ureter with mild adjacent infl ammatory stranding. No ureteral calculi are identified. Moderate urinary bladder wall thickening with partial distention and perivesicular stranding. Mild prostamegaly. Soft tissue thickening involves t he lateral right aspect of the urinary bladder. Extensive atherosclerosis of the abdominal aorta and branch vessels. 9 mm right iliac chain lymph nod e on image 248 series 3 is similar in size to the prior study with mild adjacent stranding. There is no definite new or progressive lymphadenopathy identified. Embolization coils are noted within the region of the gastroduodenal artery. Nonspecific distal esoph ageal wall thickening. Colonic diverticulosis. There is mild wall thickening noted throughout the madhav ority of the colon, most pronounced within the mid transverse colon to the rectum. Mild associated pe rirectal and pericolonic inflammatory stranding. No CT evidence of acute appendicitis. Degenerative c hanges of the spine, pelvis and hips. IMPRESSION: 1. Wall thickening of the colon and rectum is suggestive of a nonspecific proctocolitis. 2. No bowel obstruction or pneumoperitoneum. 3. Right-sided percutaneous nephroureteral stent in place with unchanged mild hydroureteronephrosis. Urothelial thickening of the right renal pelvis and ureter may represent associated infection. Correl ate with urinalysis. 4. Urinary bladder wall thickening with perivesicular stranding redemonstrated. 5. Unchanged right iliac chain lymph node. No new or progressive lymphadenopathy. 6. Additional findings as above. ACT 112: Negative or not required by law. The above report was generated using voice recognition software. It may contain grammatical, syntax o r spelling errors. Dictated: 11/16/2021 8:10 AM Transcribed: 11/16/2021 8:38 AM Juanita [id number] [email or web address] Electronically signed by: Elroy Rosas M.D. 11/16/2021 8:48 AM
[2021-11-16] MEDS ORDERED: METOPROLOL TARTRATE 1 MG/ML VIAL IV PRN (12:13)
--- NOTE | 2021-11-16 12:45 | Gastrointestinal Consultation ---
Date of Consultation November 16, 2021 Assessment & Plan (1) Acute GI bleeding: (2) Diarrhea: Plan 76-year-old male with a past medical history including SNHL, ETD, chronic diarrhea, acute duodenal ulcer with hemorrhage requiring transfusion, blood loss anemia, left vocal cord paralysis, radiation cystitis, CKD stage IV, hypertension, subclavian artery aneurysm, bladder cancer metastasized to lung, diabetes mellitus type 2, past VT, secondary hyperparathyroidism, kidney stones, status post AAA repair, hypothyroidism, hyperlipidemia, history of stroke without residual deficits, gout, CAD, BPH, acid reflux and malignant neoplasm of lateral wall of bladder. The patient reports that he has had chronic diarrhea issues since he had a duodenal ulcer bleed on 09/09/2021 at [facility]. He had EGD at that time revealing 2 large duodenal ulcers. He was then transferred to [facility] for IR intervention where he had embolization coils placed at that time. He did have on and off diarrhea since that time. He had diarrhea for the past 3 days and felt weak so proceeded to the ED where he tested heme negative and found to be anemic. He has not had any more bowel movements since admission per patient and . - discussed case with Dr. Espinosa who advised on plan. - await stool studies that have been ordered for diarrhea. - Will plan for egd for tomorrow. Keep NPO after midnight. - monitor H/H and transfuse as needed. - continue protonix 40mg bid. Supervising Physician Co-Signing Physician Notes I personally evaluated the patient and agree with the findings as documented by Zaki Mac PAC Exam: Constitutional: WD/WN, vitals as above General: EOM intact bilaterally Neck: normal visual inspection Respiratory: normal respiratory effort, lungs clear to auscultation Cardiovascular: RRR, no murmur, no edema Gastrointestinal: abdomennormal to inspection, nondistended, soft, nontender, no hepatosplenomegaly Musculoskeletal: no cyanosis, head normal to inspection Skin: no rashes, warm and dry Neurologic: moves all extremities Psychiatric: A and O x3, euthymic affect also with dysphagia in addition to gi bleeding, EGD tomorrow with dilation and tx of possible bleeding ulcer. History of Present Illness Reason for Consultation: proctocolitis, anemia, history of duodenal ulcer Requesting Physician: Dr. Cobb Attending Physician: Kev Oliver MD History of Present Illness 76-year-old male with a past medical history including SNHL, ETD, chronic diarrhea, acute duodenal ulcer with hemorrhage requiring transfusion, blood loss anemia, left vocal cord paralysis, radiation cystitis, CKD stage IV, hypertension, subclavian artery aneurysm, bladder cancer metastasized to lung, diabetes mellitus type 2, past VT, secondary hyperparathyroidism, kidney stones, status post AAA repair, hypothyroidism, hyperlipidemia, history of stroke without residual deficits, gout, CAD, BPH, acid reflux and malignant neoplasm of lateral wall of bladder. The patient reports that he has had chronic diarrhea issues since he had a duodenal ulcer bleed on 09/09/2021 at [facility]. He had EGD at that time revealing 2 large duodenal ulcers. He was then transferred to [facility] for IR intervention where he had embolization coils placed. He tells me that since that time he has had diarrhea off and on. using imodium. He has been doing well on this until about 3 days ago when Diarrhea worsened. He tells me he has 4 Bowel movements a day. no brbpr. stools have been black. He woke up last night with a large loose bowel movement and felt weak, nauseated, and shaky so he proceeded to the ED for evaluation. In ED he had rectal exam showing dark brown, heme positive stools. He denies any vomiting, heartburn, dysphagia, abdominal pain. Allergies Allergy/AdvReac Type Severity Reaction Status Date / Time Iodinated Contrast Media AdvReac Intermediate Hypertensio Verified 10/19/21 10:56 n atorvastatin [From Lipitor] AdvReac Mild muscle Verified 10/19/21 10:56 aches Home Medications Medication Instructions Recorded Confirmed Type dulaglutide 0.75 mg/0.5 mL 0.75 mg (0.5 mL) subcut WEEKLY #2 09/19/19 11/16/21 Rx subcutaneous pen injector mL (Trulicity) albuterol sulfate 90 mcg/actuation 2 puff inhalation QID PRN 05/22/20 11/16/21 Rx aerosol inhaler (Ventolin HFA) shortness of breath or wheezing #18 grams calcitriol 0.25 mcg capsule 0.25 mcg PO QPM 07/17/21 11/16/21 History metoprolol succinate 100 mg 100 mg PO QPM #90 tabs 07/30/21 11/16/21 Rx tablet,extended release 24 hr allopurinol 300 mg tablet 300 mg PO DAILY #90 tabs 10/12/21 11/16/21 Rx levothyroxine 100 mcg tablet 100 mcg PO QAM #90 tabs 10/12/21 11/16/21 Rx (Synthroid) cetirizine 10 mg capsule 10 mg PO DAILY 11/16/21 11/16/21 History cinacalcet 30 mg tablet 30 mg PO 3XWK 11/16/21 11/16/21 History fluticasone propionate 50 2 spray intranasal PRN Dyspnea 11/16/21 History mcg/actuation nasal spray,suspension lactobacillus combination no.4 3 3,000 mmu cells PO DAILY 11/16/21 11/16/21 History billion cell capsule (Probiotic) rosuvastatin 5 mg tablet 5 mg PO QPM 11/16/21 11/16/21 History Patient History Medical History Acid reflux Acute duodenal ulcer with hemorrhage Adenomatous polyp of colon Anemia Atrial fibrillation with rapid ventricular response Benign essential hypertension Benign prostatic hyperplasia 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 Blood loss anemia CAD (coronary atherosclerotic disease) Chronic kidney disease STAGE IV Chronic obstructive pulmonary disease Diabetes mellitus, type 2 Diarrhea Hearing loss History of blood transfusion 01/2021 [facility] History of stroke without residual deficits OCCURRED DURING [place] 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-NO ISSUES SINCE Hyperlipidemia Hypothyroidism Past myocardial infarction Port-A-Cath in place Secondary hyperparathyroidism Subclavian artery aneurysm Vocal fold paralysis, left Surgical History H/O arthroscopy of knee H/O transurethral destruction of bladder lesion 08/17/2019 History of biopsy of bladder History of cardiac cath History of carpal tunnel release RIGHT History of cataract surgery BILATERAL History of colonoscopy History of cystoscopy 01/19/2020 History of lymph node biopsy Nephrostomy status R PCN placed by IR 10/23/2021 S/P AAA (abdominal aortic aneurysm) repair Status post biopsy of kidney Family History Grandfather , in his eighties No problems noted. Grandmother , young cause unknown No problems noted. Grandfather , in his eighties No problems noted. Grandmother , did have breast cancer but in her eighties of unknown cause No problems noted. Father , He in his sixties had had three strokes and high blood pressure He had had a kidney removed perhaps from cancer Stroke Mother , in her mid seventies complications from smoking No problems noted. Daughter Age: 50 No problems noted. Daughter Age: 47 No problems noted. Daughter Age: 42 No problems noted. Brother , at age 7 of a stroke Stroke Grandmother (Maternal) Breast cancer Other No family history of adverse response to anesthesia No family history of bleeding disorder Denies family history of Ovarian cancer Prostate cancer Myocardial infarction Colorectal cancer Social History Smoking Status: Current every day smoker Tobacco Type: Cigarettes Age Started Using Tobacco: 10; packs per day: 0.5; Cigarettes Per Day: 10; Second Hand Exposure: No; Do You Dip or Chew Tobacco: No; Tobacco Cessation Education Requested by Patient: No Hx Alcohol Use: No Hx Substance Use: No Preferred Language: Divehi Communication Ability: Effective Visual Impairment: Partially Limited Hearing Ability: Use of Hearing Aid Packing Machine Feeder Required: No Beliefs That Will Affect Care: None marital status: Current Living Situation: Alone current occupational status: retired How many Children do You have: 3 Other Information That Helps Us Care for You: No Feels Safe at Home: Yes Safety Concerns: Feels Safe At This Time Childhood Exposure to Second-Hand Smoke: Yes (Both parents smoked ) Diet Comment: Diabetic diet caffeine: Yes (Coffee tea) during the past year weight has: remained stable Dental Care, Regularly: No Physical Activity Frequency: Does not Exercise Seatbelt Use: always Sunscreen Use: No Do you think of yourself as: straight/heterosexual Assistive Devices: Denture - Upper, Denture - Lower, Glasses and Hearing Aid - Bilateral Review of Systems Constitutional: no fever, no chills, no sweats and no body aches Physical Exam Constitutional: WD/WN, vitals as above Eyes: + anicteric sclerae and PERRL ENMT: external ear and nose normal, oropharynx normal Respiratory: normal respiratory effort, lungs clear to auscultation Cardiovascular: RRR, no murmur, no edema Gastrointestinal (Abdomen): normal bowel sounds, soft, nontender, no hepatosplenomegaly Skin: no rashes, warm and dry Psychiatric: A+Ox3, euthymic affect Results & Data ([facility]) Vital Signs (Past 12 Hours) Vital Signs Temp Pulse Pulse Resp BP BP Pulse Ox 11/16/21 11:21 36.3 C L 68 16 161/81 H 96 11/16/21 09:51 11/16/21 09:51 20 11/16/21 08:11 68 20 156/86 H 97 11/16/21 08:09 70 153/86 H 11/16/21 07:02 76 20 152/92 H 97 11/16/21 06:23 79 23 178/92 H 96 11/16/21 06:15 76 23 166/83 H 99 11/16/21 05:00 69 17 177/91 H 99 11/16/21 04:29 69 20 155/82 H 100 11/16/21 03:22 36.7 C 82 20 155/85 H 97 O2 Del Method 11/16/21 11:21 Room Air 11/16/21 09:51 Room Air 11/16/21 09:51 Room Air 11/16/21 08:11 Room Air 11/16/21 08:09 11/16/21 07:02 11/16/21 06:23 Room Air 11/16/21 06:15 Room Air 11/16/21 05:00 Room Air 11/16/21 04:29 Room Air 11/16/21 03:22 Room Air Diagnostic Findings ABDOMEN AND PELVIS CT WITHOUT CONTRAST CT DOSE: 356.19 mGy.cm HISTORY: Acute weakness with diarrhea. History of bladder carcinoma. pain, D, hx bladder CA TECHNIQUE: Multiaxial CT images of the abdomen and pelvis were performed without contrast. A dose lowering technique was utilized adhering to the principles of ALARA. COMPARISON STUDY: PET CT 11/11/2021. FINDINGS: Cardiomegaly with coronary arterial calcifications. Trace pericardial effusion. The lung bases are generally clear. There is no pneumatosis or pneumoperitoneum. The unenhanced spleen, pancreas and gallbladder appear unremarkable. Hypodense bilateral adrenal gland lesions are redemonstrated and appear stable from the prior study measuring up to 3.1 cm on the left and 1.3 cm on the right. Unremarkable liver. Cortical thinning of the bilateral kidneys. Subcentimeter bilateral renal calcifications are redemonstrated which are likely vascular. Nonobstructing renal calculi could appear similarly. Simple and mildly hyperdense bilateral renal lesions are again noted suggestive of simple and complex cysts. These however are incompletely characterized on this noncontrast study. There is mild right-sided hydroureteronephrosis with right-sided percutaneous nephrostomy which appears to be in satisfactory positioning. Mild urothelial thickening of the right renal collecting system and ureter with mild adjacent inflammatory stranding. No ureteral calculi are identified. Moderate urinary bladder wall thickening with partial distention and perivesicular stranding. Mild prostamegaly. Soft tissue thickening involves the lateral right aspect of the urinary bladder. Extensive atherosclerosis of the abdominal aorta and branch vessels. 9 mm right iliac chain lymph node on image 248 series 3 is similar in size to the prior study with mild adjacent stranding. There is no definite new or progressive lymphadenopathy identified. Embolization coils are noted within the region of the gastroduodenal artery. Nonspecific distal esophageal wall thickening. Colonic diverticulosis. There is mild wall thickening noted throughout the majority of the colon, most pronounced within the mid transverse colon to the rectum. Mild associated perirectal and pericolonic inflammatory stranding. No CT evidence of acute appendicitis. Degenerative changes of the spine, pelvis and hips. IMPRESSION: 1. Wall thickening of the colon and rectum is suggestive of a nonspecific proctocolitis. 2. No bowel obstruction or pneumoperitoneum. 3. Right-sided percutaneous nephroureteral stent in place with unchanged mild hydroureteronephrosis. Urothelial thickening of the right renal pelvis and ureter may represent associated infection. Correlate with urinalysis. 4. Urinary bladder wall thickening with perivesicular stranding redemonstrated. 5. Unchanged right iliac chain lymph node. No new or progressive lymphadenopathy. 6. Additional findings as above. PG Care Time/CCT Total # of Minutes Spent Total Time Spent with Patient: Total time spent is greater than 50% in coordination of care (as documented) at patient's floor/unit and/or counseling patient: Coding Level of Care Code 58057 Initial Inpt Care Lvl 3 Diagnoses Acute GI bleeding K92.2 Diarrhea R19.7
[2021-11-16] MEDS: allopurinoL 300 MG TAB PO SCH (13:29)
[2021-11-16] MEDS: CETIRIZINE HCL 10 MG TABLET PO SCH (13:29)
--- NOTE | 2021-11-16 14:12 | Communication Note ---
Date of Service: November 16, 2021 Patient admitted the same day therefore he was seen and examined but I will not be billing for this encounter. Hgb stable 7.7 -> 8.1. Abdo SNT. Had one BM since admission - black. GI planning on EGD tomorrow. NPO after midnight. Of note: Has percutaneous urostomy but currently capped per interventional radiology. He does note dysuria since capping the urostomy however no bacteria on urine micro. Urine culture pending. CT - Urothelial thickening of the right renal pelvis and ureter may represent associated infection. Currently on Zosyn for proctocolitis which is adequate coverage.
[2021-11-16 14:23] LABS: Hematocrit (blood only) 23.4 % (40.1-51.0); Hemoglobin 7.2 g/dl (14.0-18.0)
--- NOTE | 2021-11-16 14:40 | Electrocardiogram Report ---
Test Reason : Blood Pressure : / mmHG Vent. Rate : 066 BPM Atrial Rate : 066 BPM P-R Int : 154 ms QRS Dur : 076 ms QT Int : 414 ms P-R-T Axes : 000 -13 033 degrees QTc Int : 434 ms Normal sinus rhythm Inferior infarct (cited on or before 16-NOV-2021) Anterior infarct , age undetermined Abnormal ECG When compared with ECG of 03-FEB-2021 06:29, Questionable change in initial forces of Inferior leads Nonspecific T wave abnormality no longer evident in Anterior leads Confirmed by Lauro Chandra ([id number]) on 11/16/2021 2:40:22 PM Referred By: REFERRED SELF Confirmed By:Lauro Chandra
[2021-11-16] MEDS: PIPERACILLIN/TAZOBACTAM 3.375 GM in DEXTROSE 5% 100 ML IV SCH (16:30)
[2021-11-16] MEDS: ROSUVASTATIN CALCIUM 5 MG TAB PO SCH (20:03)
[2021-11-16] MEDS: CALCITRIOL 0.25 MCG CAPSULE PO SCH (20:03)
[2021-11-16 20:42] LABS: Hemoglobin 8.1 g/dl (14.0-18.0)
[2021-11-17] MEDS: PIPERACILLIN/TAZOBACTAM 3.375 GM in DEXTROSE 5% 100 ML IV SCH ×2 (03:22→16:16)
[2021-11-17] MEDS: LEVOTHYROXINE SODIUM 100 MCG TABLET PO SCH ×2 (05:39→08:36)
[2021-11-17 06:08] LABS: Basophils # (auto) 0.03 K/uL (0-0.2); Basophils % (auto) 0.6 %; Eosinophils # (auto) 0.22 K/uL (0-0.50); Eosinophils % (auto) 4.6 %; Hematocrit (blood only) 23.8 % (40.1-51.0); Hemoglobin 7.5 g/dl (14.0-18.0); Immature Granulocytes # (auto) 0.01 K/uL (0.00-0.02); Immature Granulocytes % (auto) 0.2 %; Lymphocytes # (auto) 0.43 K/uL (1.2-3.4); Mean Corpuscular Hemoglobin 30.6 pg (25.0-34.0); Mean Corpuscular Hgb Conc 31.5 g/dL (32.0-36.0); Mean Corpuscular Volume 97.1 fL (80.0-100.0); Mean Platelet Volume 11.4 fL (9.4-12.4); Monocytes # (auto) 0.43 K/uL (0.24-0.82); Neutrophils # (auto) 3.67 K/uL (1.4-6.5); Neutrophils % (auto) 76.6 %; Platelet Count 162 K/uL (130-400); RDW Coefficient of Variation 16.4 % (11.5-14.5); RDW Standard Deviation 58.5 fL (36.4-46.3); Red Blood Count 2.45 M/uL (4.63-6.08); White Blood Count 4.79 K/ul (4.8-10.8)
[2021-11-17 06:42] LABS: RBC Morphology Unremarkable
[2021-11-17 06:53] LABS: Albumin Globulin Ratio 1.1 (0.9-2); Albumin Level 2.8 gm/dl (3.4-5.0); BUN Creatinine Ratio 12.4 (10-20); Bilirubin,Total 0.3 mg/dl (0.2-1.0); Calcium 7.7 mg/dl (8.5-10.1); Est GFR (African American) 13.8 ml/min; Est GFR (Non-African American) 11.9 ml/min; Globulin 2.6 gm/dl (2.5-4.0); Magnesium 1.8 mg/dl (1.7-2.4); Potassium 4.6 mmol/L (3.5-5.1); Total Protein 5.4 gm/dl (6.0-8.3)
[2021-11-17 07:22] LABS: Estimated Average Glucose 143 mg/dl; Hemoglobin A1C 6.6 % (4.5-5.6)
[2021-11-17] MEDS: INSULIN ASPART PER UNIT SC SCH ×4 (08:02→19:47)
[2021-11-17] MEDS: allopurinoL 300 MG TAB PO SCH (08:36)
[2021-11-17] MEDS: CETIRIZINE HCL 10 MG TABLET PO SCH (08:37)
--- NOTE | 2021-11-17 08:54 | History & Physical Bridge Note ---
Date of Service November 17, 2021 History & Physical Bridge Note I have examined the patient, reviewed the History & Physical and in the interval since the performance of the History & Physical I have noted the following changes of clinical significance: no changes noted Patient tells me he has had 2 dark bowel movements since last night. hgb dropped from 8.1 to 7.5 today. he has been NPO since midnight. He denies any dysphagia today but did mention to MD yesterday that this has been an issue. he denies any nausea, vomiting, abdominal pain, heartburn, brbpr, chest pain, shortness of breath. he is planned for egd today.
[2021-11-17] MEDS: PANTOprazole 40 MG in SYRINGE 0 ML IV SCH ×2 (08:57→19:50)
--- NOTE | 2021-11-17 11:32 | Hospitalist Progress Note ---
Date of Service November 17, 2021 Assessment & Plan (1) Acute GI bleeding: Plan: Acute GI bleeding/proctocolitis- Wall thickening of the colon and rectum suggestive of proctocolitis -continue on intravenous Zosyn No history of C. difficile, and no recent antibiotic exposures No questionable food ingestions Stool PCR negative for infective etiology CBC daily -hemoglobin appears to be stable without needing blood transfusion Patient reports having diarrhea ever since he had the acute duodenal ulcer with hemorrhaging on 09/09/2021 at [facility]. He reports needing more than 10 units of PRBCs during that admission EGD later today with gastroenterology (2) Acute duodenal ulcer with hemorrhage: Plan: Acute duodenal ulcer with hemorrhage/GERD-detected on 09/09/2021 at [facility] Required at least 10 units PRBCs per patient's account Protonix 40 mg IV twice daily EGD later today (3) Proctocolitis with rectal bleeding: Plan: Zosyn 4.5 g IV every 8 hours, to cover proctocolitis and UTI infections (4) UTI (urinary tract infection): Plan: Possible diagnosis with dysuria. Continue intravenous Zosyn as above. Awaiting urine culture. (5) Diarrhea: Plan: Chronic diarrhea as noted (6) Hypomagnesemia: Plan: Resolved at 1.8 today. (7) Chronic kidney disease, stage IV (severe): Plan: Creatinine 4.26 upon admission, with range 4.08-6.53 Follow laboratories every morning - stable, will restart on slow IV fluids due to mild increase today Follows with Dr. Cody Garcia nephrology (8) Malignant neoplasm of lateral wall of bladder: Plan: Bladder cancer/UTI/right nephroureteral stent/bladder wall thickness- Follow urine culture and sensitivity Antibiotics as above (9) Hypertension: Plan: Patient reports not taking his metoprolol succinate at home. We will treat with hydralazine 10 mg IV every 4 hourly as needed for systolic blood pressure greater than 180 (10) Subclavian artery aneurysm: Plan: He was just seen at [facility] last week, and reportedly is to undergo repair, but he was going to wait until January to allow healing from previous duodenal ulcer (11) Diabetes mellitus, type 2: Plan: Hold dulaglutide Place on Accu-Cheks before meals and at bedtime/every 6 hours, with NovoLog coverage per scale (12) Secondary hyperparathyroidism: (13) Hyperlipidemia: Plan: Restart rosuvastatin 5 mg p.o. every afternoon (14) Hypothyroidism: Plan: Restart levothyroxine 100 mcg p.o. daily (15) CAD (coronary atherosclerotic disease): Plan: No acute issues (16) Benign prostatic hyperplasia: Plan: Monitor urine output (17) Acid reflux: Plan: See above Plan VTE prophylaxis -contraindicated given acute GI bleed Diet -NPO pending EGD Disposition -continued admission on PCU Admission and Anticipated Discharge Date Admission Date: November 16, 2021 Subjective Additional 2 melanic BM today. No nausea, vomiting, abdominal pain. Continued dysuria. Awaiting EGD when seen. Review of Systems Review of Systems: All systems reviewed & are unremarkable except as noted in Subjective Physical Exam Constitutional: WD/WN, vitals as above Eyes: + anicteric sclerae and PERRL ENMT: external ear and nose normal, oropharynx normal Respiratory: normal respiratory effort, lungs clear to auscultation Cardiovascular: RRR, no murmur, no edema Gastrointestinal (Abdomen): normal bowel sounds, soft, nontender, no hepatosplenomegaly Skin: no rashes, warm and dry Psychiatric: A+Ox3, euthymic affect Results & Data Results & Data ([facility]) Vital Signs (Past 12 Hours) Vital Signs Temp Pulse Pulse Resp BP Pulse Ox O2 Del Method 11/17/21 07:52 66 11/17/21 07:52 Room Air 11/17/21 07:27 36.6 C 75 16 171/85 H 96 Room Air 11/17/21 03:25 36.6 C 74 12 169/83 H 98 Room Air PG Care Time/CCT Total # of Minutes Spent Total Time Spent with Patient: Total time spent is greater than 50% in coordination of care (as documented) at patient's floor/unit and/or counseling patient: Coding Level of Care Code 14317 Subseq Hosp Care Lvl 2 Diagnoses Acute GI bleeding K92.2 Acute duodenal ulcer with hemorrhage K26.0 Proctocolitis with rectal bleeding K52.9; K62.5 UTI (urinary tract infection) N39.0 Diarrhea R19.7 Hypomagnesemia E83.42 Chronic kidney disease, stage IV (severe) N18.4 Malignant neoplasm of lateral wall of bladder C67.2 Hypertension I10 Subclavian artery aneurysm I72.8 Diabetes mellitus, type 2 E11.9 Secondary hyperparathyroidism N25.81 Hyperlipidemia E78.2 Hyperlipidemia type: mixed hyperlipidemia Hypothyroidism E03.9 Hypothyroidism type: acquired CAD (coronary atherosclerotic disease) I25.10 Benign prostatic hyperplasia N40.1; R33.8 Lower urinary tract symptom detail: urinary retention Lower urinary tract symptom presence: symptoms present Acid reflux K21.9 (1) Benign prostatic hyperplasia Lower urinary tract symptom detail: urinary retention Lower urinary tract symptom presence: symptoms present Qualified Code(s): N40.1 - Benign prostatic hyperplasia with lower urinary tract symptoms; R33.8 - Other retention of urine (2) Hyperlipidemia Hyperlipidemia type: mixed hyperlipidemia Qualified Code(s): E78.2 - Mixed hyperlipidemia (3) Hypothyroidism Hypothyroidism type: acquired Qualified Code(s): E03.9 - Hypothyroidism, unspecified
[2021-11-17] MEDS: LACTATED RINGER'S 1,000 ML IV SCH ×2 (11:45→19:48)
[2021-11-17] MEDS ORDERED: LIDOCAINE 2% MPF LOCAL 5 ML VIAL INFIL ONE (14:18)
[2021-11-17] MEDS ORDERED: PROPOFOL IV EMULSION 10 MG/ML 20 ML VIAL IV ONE (14:18)
--- NOTE | 2021-11-17 14:37 | Anesthesiology Consultation ---
Date of Service November 17, 2021 Assessment & Plan Chart Review Chart Review: Acceptable Risk for Surgery and Patient NOT seen in Pre Admission Testing Consults Requested none ASA ASA4 Proposed Anesthesia Anesthesia Type: MAC Risk / Benefits Reviewed With: PT / POA / Parent / Guardian, Accepts Plan and Informed Consent Obtained History Surgery Operation Date: 11/17/21 16:30 Proposed Procedures p Esophagogastroduodenoscopy Dr. Jesús Espinosa MD Height/Weight Height: 5 ft 4 in Weight: 69.1 kg Allergies Allergy/AdvReac Type Severity Reaction Status Date / Time Iodinated Contrast Media AdvReac Intermediate Hypertensio Verified 11/17/21 14:31 n atorvastatin [From Lipitor] AdvReac Mild muscle Verified 11/17/21 14:31 aches Medications Home Medications Medication Instructions Recorded Confirmed Last Taken dulaglutide 0.75 mg/0.5 mL 0.75 mg (0.5 mL) subcut WEEKLY #2 09/19/19 11/16/21 11/15/21 subcutaneous pen injector mL (Trulicity) albuterol sulfate 90 mcg/actuation 2 puff inhalation QID PRN 05/22/20 11/16/21 02/01/21 aerosol inhaler (Ventolin HFA) shortness of breath or wheezing #18 grams calcitriol 0.25 mcg capsule 0.25 mcg PO QPM 07/17/21 11/16/21 11/15/21 metoprolol succinate 100 mg 100 mg PO QPM #90 tabs 07/30/21 11/16/21 11/15/21 tablet,extended release 24 hr allopurinol 300 mg tablet 300 mg PO DAILY #90 tabs 10/12/21 11/16/21 11/15/21 levothyroxine 100 mcg tablet 100 mcg PO QAM #90 tabs 10/12/21 11/16/21 11/15/21 (Synthroid) cetirizine 10 mg capsule 10 mg PO DAILY 11/16/21 11/16/21 11/15/21 cinacalcet 30 mg tablet 30 mg PO 3XWK 11/16/21 11/16/21 11/13/21 fluticasone propionate 50 2 spray intranasal PRN Dyspnea 11/16/21 Unknown mcg/actuation nasal spray,suspension lactobacillus combination no.4 3 3,000 mmu cells PO DAILY 11/16/21 11/16/21 11/15/21 billion cell capsule (Probiotic) rosuvastatin 5 mg tablet 5 mg PO QPM 11/16/21 11/16/21 11/15/21 Active Medications Generic Name Dose Route Start Last Admin Trade Name Shahrzad PRN Reason Stop Dose Admin Allopurinol 300 mg 11/16/21 12:15 11/17/21 08:36 Allopurinol 300 Mg Tab PO 12/16/21 12:14 300 mg DAILY JESSE Administration Calcitriol 0.25 mcg 11/16/21 21:00 11/16/21 20:03 Calcitriol 0.25 Mcg Capsule PO 12/16/21 20:59 0.25 mcg QPM JESSE Administration Cetirizine HCl 10 mg 11/16/21 12:30 11/17/21 08:37 Cetirizine Hcl 10 Mg Tablet PO 12/16/21 12:29 10 mg DAILY JESSE Administration Pantoprazole Sodium 40 mg/ 10 mls @ 5 mls/min 11/16/21 09:00 11/17/21 08:57 Syringe IV 12/16/21 08:59 5 mls/min BID JESSE Administration Piperacillin Sod/Tazobactam 115 mls @ 28.75 mls/hr 11/16/21 15:00 11/17/21 07:22 Sod 3.375 gm/ Dextrose IV 11/26/21 14:59 Infused Q12H JESSE Infusion Protocol Lactated Ringer's 1,000 mls @ 100 mls/hr 11/17/21 11:30 11/17/21 11:45 Lr IV 11/18/21 07:29 100 mls/hr .Q10H JESSE Administration Insulin Aspart 0 units 11/16/21 07:30 11/17/21 11:52 Insulin Aspart Per Unit SC 12/16/21 07:29 Not Given ACHS JESSE Levothyroxine Sodium 100 mcg 11/17/21 06:30 11/17/21 08:36 Levothyroxine Sodium 100 Mcg Tablet PO 12/17/21 06:29 100 mcg DAILYBB JESSE Administration Rosuvastatin Calcium 5 mg 11/16/21 21:00 11/16/21 20:03 Rosuvastatin Calcium 5 Mg Tab PO 12/16/21 20:59 5 mg QPM JESSE Administration NPO Date Last Intake of Fluids: 11/17/21 Time Last Intake of Fluids: 08:30 Date Last Intake of Solids: 11/16/21 Time Last Intake of Solids: 17:00 Past Medical History Medical History Acid reflux Acute duodenal ulcer with hemorrhage Adenomatous polyp of colon Anemia Atrial fibrillation with rapid ventricular response Benign essential hypertension Benign prostatic hyperplasia 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 Blood loss anemia CAD (coronary atherosclerotic disease) Chronic kidney disease STAGE IV Chronic obstructive pulmonary disease Diabetes mellitus, type 2 Diarrhea Hearing loss History of blood transfusion 01/2021 [facility] History of stroke without residual deficits OCCURRED DURING AAA REPAIR [facility] [place] 5-6 YRS 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-NO ISSUES SINCE Hyperlipidemia Hypothyroidism Past myocardial infarction Port-A-Cath in place Secondary hyperparathyroidism Subclavian artery aneurysm Vocal fold paralysis, left Exercise / Class Metabolic Activity II 4-5 Yardwork/Stairs/Walk up hill Past Family History Family History Grandfather , in his eighties No problems noted. Grandmother , young cause unknown No problems noted. Grandfather , in his eighties No problems noted. Grandmother , did have breast cancer but in her eighties of unknown cause No problems noted. Father , He in his sixties had had three strokes and high blood pressure He had had a kidney removed perhaps from cancer Stroke Mother , in her mid seventies complications from smoking No problems noted. Daughter Age: 50 No problems noted. Daughter Age: 47 No problems noted. Daughter Age: 42 No problems noted. Brother , at age 7 of a stroke Stroke Grandmother (Maternal) Breast cancer Other No family history of adverse response to anesthesia No family history of bleeding disorder Denies family history of Ovarian cancer Prostate cancer Myocardial infarction Colorectal cancer Past Surgical History Surgical History H/O arthroscopy of knee H/O transurethral destruction of bladder lesion 08/17/2019 History of biopsy of bladder History of cardiac cath History of carpal tunnel release RIGHT History of cataract surgery BILATERAL History of colonoscopy History of cystoscopy 01/19/2020 History of lymph node biopsy Nephrostomy status R PCN placed by IR 10/23/2021 S/P AAA (abdominal aortic aneurysm) repair Status post biopsy of kidney Past Anesthesia History No Hx of Anesthesia Complications and No Family Hx of Anesthesia Complications History of PONV No Hx of PONV and No Hx of Motion Sickness Social History Smoking Status: Current every day smoker tobacco type: cigarettes Smoking cigarettes per day: 10 Do You Dip or Chew Tobacco: No Hx Alcohol Use: No Hx Substance Use: No substance use type: does not use Physical Exam Vital Signs Last Vital Signs Temp 36.8 C 11/17/21 14:21 Pulse 83 11/17/21 14:21 Resp 16 11/17/21 14:21 BP 186/81 H 11/17/21 14:21 Pulse Ox 99 11/17/21 14:21 O2 Del Method 11/17/21 14:21 ENMT Mouth: no dentition abnormality Thyromental Distance: > or= 3.5 Finger Breadths Mallampati Class: II Neck normal visual inspection Respiratory normal respiratory effort Auscultation: lungs clear to auscultation bilaterally Cardiovascular Rate/Rhythm: regular rate and regular rhythm Chest (Breasts) Chest: + vascular access device or port Psychiatric Orientation: alert Testing Laboratory Results 11/17/21 05:32 11/17/21 05:32 Hemoglobin A1c 6.6 % (4.5-5.6) H 11/17/21 05:32 Urine Color Yellow 11/16/21 04:22 Urine Appearance Turbid (Clear) A 11/16/21 04:22 Urine pH 6.5 (4.5-7.5) 11/16/21 04:22 Ur Specific Donald 1.015 (1.000-1.030) 11/16/21 04:22 Urine Protein 3+ (Negative) H 11/16/21 04:22 Urine Glucose (UA) Negative (Negative) 11/16/21 04:22 Urine Ketones Negative (Negative) 11/16/21 04:22 Urine Nitrite Negative (Negative) 11/16/21 04:22 Ur Leukocyte Esterase 3+ (Negative) H 11/16/21 04:22 Urine WBC (Auto) >30 /hpf (0-5) H 11/16/21 04:22 Urine RBC (Auto) 0-4 /hpf (0-4) 11/16/21 04:22 U Hyaline Cast (Auto) 0 /lpf (0-5) 07/25/22 04:22 U Epithel Cells (Auto) 10-20 /lpf (0-5) H 11/16/21 04:22 Urine Bacteria (Auto) Negative (Negative) 11/16/21 04:22 Blood Type O Positive 11/16/21 05:35 Antibody Screen NEGATIVE 11/16/21 05:35 11/16/21 04:22 Urine Culture - Preliminary Urine,Clean Catch Pin-point growth present, reincubating. 11/17/21 11/17/21 11/17/21 11:30 07:17 06:18 POC Glucose 78 90 97
--- NOTE | 2021-11-17 15:09 | GI REPORT ---
Patient Name: Sawyer Crews Procedure Date: 11/17/2021 2:32 PM Date of : 1945 Admit Type: Inpatient Age: 76 Gender: Male Attending MD: Ortega Espinosa MD Procedure: Upper GI endoscopy Providers: Ortega Espinosa MD Referring MD: Kev Oliver Md Indications: Dysphagia, Melena Medicines: Monitored Anesthesia Care Complications: No immediate complications. Estimated blood loss: None. Estimated Blood Loss: Estimated blood loss: none. Procedure: Pre-Anesthesia Assessment: - Prior Anticoagulants: The patient has taken no previous anticoagulant or antiplatelet agents. - ASA Grade Assessment: II - A patient with mild systemic disease. After obtaining informed consent, the endoscope was passed under direct vision. Throughout the procedure, the patient's blood pressure, pulse, and oxygen saturations were monitored continuously. The Endoscope was introduced through the mouth, and advanced to the second part of duodenum. The upper GI endoscopy was accomplished without difficulty. The patient tolerated the procedure well. Findings: No endoscopic abnormality was evident in the esophagus to explain the patient's complaint of dysphagia. there were significant possibly hyperperistaltic contractions however. Diffuse moderate inflammation characterized by erythema and shallow ulcerations was found in the stomach. Biopsies were taken with a cold forceps for Helicobacter pylori testing. Estimated blood loss: none. One non-bleeding cratered duodenal ulcer with no stigmata of bleeding was found in the duodenal bulb. Diffuse mildly erythematous mucosa without active bleeding and with no stigmata of bleeding was found in the duodenal bulb. The second portion of the duodenum was normal. A medium-sized hiatal hernia was present. Impression: - No endoscopic esophageal abnormality to explain patient's dysphagia. - Gastritis. Biopsied. - Non-bleeding duodenal ulcer with no stigmata of bleeding. - Erythematous duodenopathy. - Normal second portion of the duodenum. Recommendation: - [facility] care. clear liquid diet today and tomorrow colonoscopy on 11/19 prep with golytely 4 L starting at 6 pm on saturday 11/18 -consider starting diltiazem 60 mg QID for esophageal spasms to help with his dysphagia. -will need outpatient esophageal manometry protonix 40 mg BID Ortega Espinosa MD 11/17/2021 3:08:34 PM This report has been signed electronically. Note Initiated On: 11/17/2021 2:32 PM Number of Addenda: 0 I attest to the content of the Intraoperative Record and orders documented therein, exceptions below {[id number]}
[2021-11-17] MEDS ORDERED: HEPARIN 100 UNIT/ML 5ML FLUSH ONE (15:18)
--- NOTE | 2021-11-17 15:18 | Anesthesiology Progress Note ---
Date of Service November 17, 2021 Anesthesia Post Procedure Vital Signs Vital Signs: Temp Pulse Pulse Resp BP BP Pulse Ox 11/17/21 15:04 85 16 144/83 H 98 11/17/21 14:21 98.2 F 83 16 186/81 H 99 11/17/21 12:16 97.7 F 75 16 175/87 H 98 11/17/21 07:52 66 11/17/21 07:52 11/17/21 07:27 97.9 F 75 16 171/85 H 96 11/16/21 22:17 65 11/17/21 03:25 97.9 F 74 12 169/83 H 98 11/16/21 21:00 11/16/21 23:21 98.2 F 70 20 158/79 H 97 11/16/21 20:05 97.7 F 80 18 92/57 L 98 11/16/21 19:55 98.1 F 71 22 159/78 H 93 11/16/21 16:00 77 11/16/21 15:34 98.2 F 72 18 169/82 H 179/81 H 97 O2 Del Method 11/17/21 15:04 Room Air 11/17/21 14:21 Room Air 11/17/21 12:16 Room Air 11/17/21 07:52 11/17/21 07:52 Room Air 11/17/21 07:27 Room Air 11/16/21 22:17 11/17/21 03:25 Room Air 11/16/21 21:00 Room Air 11/16/21 23:21 Room Air 11/16/21 20:05 Room Air 11/16/21 19:55 Room Air 11/16/21 16:00 11/16/21 15:34 Room Air Transfer of Care Handoff Completed per policy Notes Mental Status: alert / awake / arousable and participated in evaluation Patient Amnestic to Procedure: Yes Nausea / Vomiting: adequately controlled Pain: adequately controlled Airway Patency, RR, SpO2: stable & adequate BP & HR: stable & adequate Hydration State: stable & adequate Anesthetic Complications: no major complications apparent and Pt Satisfied with anesthetic care
[2021-11-17] MEDS: hydrALAZINE HCL 20 MG/ML VIAL IV PRN (18:40)
[2021-11-17] MEDS: CALCITRIOL 0.25 MCG CAPSULE PO SCH (19:50)
[2021-11-17] MEDS: ROSUVASTATIN CALCIUM 5 MG TAB PO SCH (19:50)
[2021-11-17] MEDS ORDERED: LIDOCAINE 4% CREAM 15 GM TUBE EXT PRN (20:07)
[2021-11-17 21:48] LABS: Adenovirus F 40/41 PCR Not Detected (NotDetected); Astrovirus PCR Not Detected (NotDetected); Campylobacter PCR Not Detected (NotDetected); Clostridium diff Toxin A/B PCR Not Detected (NotDetected); Cryptosporidium PCR Not Detected (NotDetected); Cyclospora cayetanensis PCR Not Detected (NotDetected); Entamoeba histolytica PCR Not Detected (NotDetected); Enteroaggregative E.coli(EAEC) Not Detected (NotDetected); Enteropathogenic E.coli (EPEC) Not Detected (NotDetected); Enterotoxigenic E.coli (ETEC) Not Detected (NotDetected); Giardia lamblia PCR Not Detected (NotDetected); Norovirus GI/GII PCR Not Detected (NotDetected); Plesiomonas shigelloides PCR Not Detected (NotDetected); Rotavirus A PCR Not Detected (NotDetected); Salmonella PCR Not Detected (NotDetected); Sapovirus PCR Not Detected (NotDetected); Shiga-like Toxin E.coli (STEC) Not Detected (NotDetected); Shigella/Enteroinvasive E.coli Not Detected (NotDetected); Vibrio cholerae PCR Not Detected (NotDetected); Vibrio species PCR Not Detected (NotDetected); Yersinia enterocolitica PCR Not Detected (NotDetected)
[2021-11-18] MEDS: PIPERACILLIN/TAZOBACTAM 3.375 GM in DEXTROSE 5% 100 ML IV SCH ×2 (02:16→15:32)
[2021-11-18] MEDS: LEVOTHYROXINE SODIUM 100 MCG TABLET PO SCH (06:39)
[2021-11-18] MEDS: allopurinoL 300 MG TAB PO SCH (07:40)
[2021-11-18] MEDS: CETIRIZINE HCL 10 MG TABLET PO SCH (07:40)
[2021-11-18 08:11] LABS: Basophils # (auto) 0.03 K/uL (0-0.2); Basophils % (auto) 0.6 %; Eosinophils # (auto) 0.33 K/uL (0-0.50); Eosinophils % (auto) 6.5 %; Hematocrit (blood only) 24.3 % (40.1-51.0); Hemoglobin 7.5 g/dl (14.0-18.0); Immature Granulocytes # (auto) 0.02 K/uL (0.00-0.02); Immature Granulocytes % (auto) 0.4 %; Lymphocytes # (auto) 0.38 K/uL (1.2-3.4); Lymphocytes % (auto) 7.5 %; Mean Corpuscular Hemoglobin 30.2 pg (25.0-34.0); Mean Corpuscular Hgb Conc 30.9 g/dL (32.0-36.0); Mean Platelet Volume 11.2 fL (9.4-12.4); Monocytes # (auto) 0.37 K/uL (0.24-0.82); Monocytes % (auto) 7.3 %; Neutrophils # (auto) 3.95 K/uL (1.4-6.5); Neutrophils % (auto) 77.7 %; Platelet Count 162 K/uL (130-400); RDW Coefficient of Variation 16.7 % (11.5-14.5); RDW Standard Deviation 59.9 fL (36.4-46.3); Red Blood Count 2.48 M/uL (4.63-6.08); White Blood Count 5.08 K/ul (4.8-10.8)
[2021-11-18] MEDS: INSULIN ASPART PER UNIT SC SCH ×4 (08:15→20:35)
[2021-11-18] MEDS: PANTOprazole 40 MG in SYRINGE 0 ML IV SCH ×2 (08:22→20:52)
[2021-11-18 08:40] LABS: Ovalocytes 1+
[2021-11-18 08:46] LABS: Albumin Globulin Ratio 1.1 (0.9-2); Albumin Level 2.8 gm/dl (3.4-5.0); BUN Creatinine Ratio 10.7 (10-20); Bilirubin,Total 0.3 mg/dl (0.2-1.0); Calcium 7.9 mg/dl (8.5-10.1); Creatinine Clr Calc Pharmacy 11.6 ml/min; Est GFR (African American) 13.3 ml/min; Est GFR (Non-African American) 11.5 ml/min; Globulin 2.6 gm/dl (2.5-4.0); Magnesium 1.8 mg/dl (1.7-2.4); Potassium 4.3 mmol/L (3.5-5.1); Total Protein 5.4 gm/dl (6.0-8.3)
--- NOTE | 2021-11-18 09:24 | Gastroenterology Progress Note ---
Date of Service November 18, 2021 Assessment & Plan (1) Anemia: Plan 76-year-old male with a past medical history including SNHL, ETD, chronic diarrhea, acute duodenal ulcer with hemorrhage requiring transfusion, blood loss anemia, left vocal cord paralysis, radiation cystitis, CKD stage IV, hypertension, subclavian artery aneurysm, bladder cancer metastasized to lung, diabetes mellitus type 2, past PR, secondary hyperparathyroidism, kidney stones, status post AAA repair, hypothyroidism, hyperlipidemia, history of stroke without residual deficits, gout, CAD, BPH, acid reflux and malignant neoplasm of lateral wall of bladder. The patient reports that he has had chronic diarrhea i ssues since he had a duodenal ulcer bleed on 09/09/2021 at [facility]. He had EGD at that time revealing 2 large duodenal ulcers. He was then transferred to [facility] for IR intervention where he had embolization coils placed at that time. He did have on and off diarrhea since that time. He had diarrhea for the 3 days prior to admission and felt weak so proceeded to the ED where he tested heme negative and found to be anemic. S/p egd 11/17/21 showing gastritis, nonbleeding duodenal ulcer, erythematous duodenopathy. hgb stable at 7.5 today. stool studies unremarkable. Dr. Espinosa is recommending colonoscopy for further evaluation and he is agreeable. Will prep today and plan for colonoscopy for tomorrow. - Will plan for colonoscopy for tomorrow. continue clears today. - monitor H/H, and transfuse as needed. - continue protonix 40mg bid. Admission and Anticipated Discharge Date Admission Date: November 16, 2021 Subjective Patient is s/p egd 11/17/21 gastritis, nonbleeding duodenal ulcer, erythematous duodenopathy. hgb has been stable at 7.5. He has had another bowel movement but no blood or melena that he noticed. he had liquid breakfast which he tolerated. he denies any current nausea, vomiting, heartburn, dysphagia. Dr. Espinosa recommending colonoscopy to further evaluation. patient is agreeable to have done tomorrow. Review of Systems Review of Systems: All systems reviewed & are unremarkable except as noted in Subjective Physical Exam Constitutional: WD/WN, vitals as above Eyes: + anicteric sclerae and PERRL ENMT: external ear and nose normal, oropharynx normal Respiratory: normal respiratory effort, lungs clear to auscultation Cardiovascular: RRR, no murmur, no edema Gastrointestinal (Abdomen): normal bowel sounds, soft, nontender, no hepatosplenomegaly Skin: no rashes, warm and dry Psychiatric: A+Ox3, euthymic affect Results & Data Results & Data ([facility]) Vital Signs (Past 12 Hours) Vital Signs Temp Pulse Pulse Resp BP BP Pulse Ox 11/18/21 07:35 36.6 C 87 14 152/81 H 96 11/18/21 06:00 11/17/21 22:22 107 H 11/18/21 03:01 36.8 C 92 H 18 149/84 H 96 11/17/21 23:03 37.0 C 93 H 20 149/72 H 97 Pulse Ox O2 Del Method O2 Del Method 11/18/21 07:35 Room Air 11/18/21 06:00 96 Room Air 11/17/21 22:22 11/18/21 03:01 Room Air 11/17/21 23:03 PG Care Time/CCT Total # of Minutes Spent Total Time Spent with Patient: Total time spent is greater than 50% in coordination of care (as documented) at patient's floor/unit and/or counseling patient: Coding Level of Care Code 83251 Subseq Hosp Care Lvl 3 Diagnoses Anemia D64.9 Anemia type: unspecified type (1) Anemia Anemia type: unspecified type Qualified Code(s): D64.9 - Anemia, unspecified
--- NOTE | 2021-11-18 13:38 | Hospitalist Progress Note ---
Date of Service November 18, 2021 Assessment & Plan (1) Acute GI bleeding: Plan: Acute GI bleeding/proctocolitis- Wall thickening of the colon and rectum suggestive of proctocolitis - will switch to IV ceftriaxone + metronidazole for total duration of 5 days Stool PCR negative for infective etiology CBC daily - hemoglobin appears to be stable without needing blood transfusion, current Hgb 7.5. Patient reports having diarrhea ever since he had the acute duodenal ulcer with hemorrhaging on 09/09/2021 at [facility]. He reports needing more than 10 units of PRBCs during that admission EGD - gastritis, non-bleeding duodenal ulcer with no stigmata of bleeding, erythematous duodenopathy. Continue Protonix 40 mg IV twice daily Planning on colonoscopy tomorrow (2) Acute duodenal ulcer with hemorrhage: Plan: As above (3) Proctocolitis with rectal bleeding: Plan: IV ceftriaxone and metronidazole as above pending coloscopy findings (4) UTI (urinary tract infection): Plan: Possible diagnosis given dysuria but given this has not improved with an tibiotics unclear what is causing this. Urine culture with mixed pedro Will consult urology (5) Diarrhea: Plan: Chronic diarrhea as noted. Consider Imodium following colonoscopy. Continue lactobacillus (6) Hypomagnesemia: Plan: Resolved at 1.8 today. (7) Chronic kidney disease, stage IV (severe): Plan: Creatinine 4.26 upon admission, with range 4.08-6.53 Follow laboratories every morning - stable, will restart on slow IV fluids due to mild increase today Follows with Dr. Cody Garcia nephrology (8) Malignant neoplasm of lateral wall of bladder: Plan: Bladder cancer/UTI/right nephroureteral stent/bladder wall thickness- Urostomy currently clamped. (9) Hypertension: Plan: Patient reports not taking his metoprolol succinate at home. We will treat with hydralazine 10 mg IV every 4 hourly as needed for systolic blood pressure greater than 180. In August he was prescribed amlodipine 10mg PO daily which I suspect was stopped at the time of his GI bleed Will restart this at half his previous dose with amlodipine 5mg PO daily (10) Subclavian artery aneurysm: Plan: He was just seen at [facility] last week, and reportedly is to undergo repair, but he was going to wait until January to allow healing from previous duodenal ulcer (11) Diabetes mellitus, type 2: Plan: Hold dulaglutide Not needing any insulin this admission Will stop BSG ACHS at this time (12) Secondary hyperparathyroidism: (13) Hyperlipidemia: Plan: Continue rosuvastatin 5 mg p.o. every afternoon (14) Hypothyroidism: Plan: Continue levothyroxine 100 mcg p.o. daily (15) CAD (coronary atherosclerotic disease): Plan: No acute issues (16) Benign prostatic hyperplasia: Plan: Monitor urine output (17) Acid reflux: Plan: See above Plan VTE prophylaxis - contraindicated given acute GI bleed Diet -N clear liquids, NPO @ midnight Disposition - stable for transfer to med/surg Admission and Anticipated Discharge Date Admission Date: November 16, 2021 Subjective No abdominal pain, fever or chills. Watery black stool. Still having mild dysuria. Urine culture showing mixed hrowth. With regards to his anemia he denies any chest pain, shortness of breath of dizziness. Review of Systems Review of Systems: All systems reviewed & are unremarkable except as noted in Subjective Physical Exam Constitutional: WD/WN, vitals as above Respiratory: normal respiratory effort, lungs clear to auscultation Cardiovascular: RRR, no murmur, no edema Gastrointestinal (Abdomen): normal bowel sounds, soft, nontender, no hepatosplenomegaly Skin: no rashes, warm and dry Psychiatric: A+Ox3, euthymic affect Results & Data Results & Data ([facility]) Vital Signs (Past 12 Hours) Vital Signs Temp Pulse Pulse Resp BP BP Pulse Ox 11/18/21 11:40 36.8 C 71 14 156/84 H 97 11/18/21 07:30 95 H 11/18/21 09:44 11/18/21 07:35 36.6 C 87 14 152/81 H 96 11/18/21 06:00 11/18/21 03:01 36.8 C 92 H 18 149/84 H 96 Pulse Ox O2 Del Method O2 Del Method 11/18/21 11:40 Room Air 11/18/21 07:30 11/18/21 09:44 Room Air 11/18/21 07:35 Room Air 11/18/21 06:00 96 Room Air 11/18/21 03:01 Room Air PG Care Time/CCT Total # of Minutes Spent Total Time Spent with Patient: Total time spent is greater than 50% in coordination of care (as documented) at patient's floor/unit and/or counseling patient: Coding Level of Care Code 58663 Subseq Hosp Care Lvl 2 Diagnoses Acute GI bleeding K92.2 Acute duodenal ulcer with hemorrhage K26.0 Proctocolitis with rectal bleeding K52.9; K62.5 UTI (urinary tract infection) N39.0 Diarrhea R19.7 Hypomagnesemia E83.42 Chronic kidney disease, stage IV (severe) N18.4 Malignant neoplasm of lateral wall of bladder C67.2 Hypertension I10 Subclavian artery aneurysm I72.8 Diabetes mellitus, type 2 E11.9 Secondary hyperparathyroidism N25.81 Hyperlipidemia E78.2 Hyperlipidemia type: mixed hyperlipidemia Hypothyroidism E03.9 Hypothyroidism type: acquired CAD (coronary atherosclerotic disease) I25.10 Benign prostatic hyperplasia N40.1; R33.8 Lower urinary tract symptom detail: urinary retention Lower urinary tract symptom presence: symptoms present Acid reflux K21.9 (1) Benign prostatic hyperplasia Lower urinary tract symptom detail: urinary retention Lower urinary tract symptom presence: symptoms present Qualified Code(s): N40.1 - Benign prostatic hyperplasia with lower urinary tract symptoms; R33.8 - Other retention of urine (2) Hyperlipidemia Hyperlipidemia type: mixed hyperlipidemia Qualified Code(s): E78.2 - Mixed hyperlipidemia (3) Hypothyroidism Hypothyroidism type: acquired Qualified Code(s): E03.9 - Hypothyroidism, unspecified
[2021-11-18] MEDS: metroNIDAZOLE 500 MG/100 ML BAG IV SCH ×2 (15:47→23:58)
[2021-11-18] MEDS: cefTRIAXone SODIUM 2,000 MG in DEXTROSE 5% 50 ML IV SCH (15:47)
[2021-11-18] MEDS: LAVAGE SOLUTION 4000ML PO SCH (17:30)
[2021-11-18] MEDS: hydrALAZINE HCL 20 MG/ML VIAL IV PRN (20:51)
[2021-11-18] MEDS: CALCITRIOL 0.25 MCG CAPSULE PO SCH (20:52)
[2021-11-18] MEDS: ROSUVASTATIN CALCIUM 5 MG TAB PO SCH (20:52)
--- NOTE | 2021-11-18 22:02 | Urology Consultation ---
Date of Consultation November 18, 2021 Assessment & Plan (1) Dysuria: Patient has been admitted on the hospitalist service primarily to undergo GI work-up. From a urology perspective we recommend the following: His underlying dysuria and urinary frequency may be due to underlying radiation cystitis as well as irritation from his ureteral nephrostomy tube Recommend treating the patient symptomatically. Modalities such as analgesics, oxybutynin, or Belladonna & Opium suppositories can be attempted. Patient's most recent urine culture did not reveal urinary tract infection. If there is ongoing concern the patient may have an underlying urinary tract infection a repeat urine culture can be collected If these measures fail to improve the patient's dysuria consideration can be given to uncapping his ureter nephrostomy tube to see if this alleviates any of his symptoms. Supervising Physician Co-Signing Physician Notes I have discussed Mr. Crews's case with Blair Klein PA-C and agree with the above documentation. Several possible explanations for urinary symptoms include radiation cystitis, irritation from nephroureteral catheter, lower suspicion for infection. For now would treat based on symptoms using Ty lenol/oxybutynin, belladonna and opium suppositories as needed. Would also be reasonable to try uncapping nephrostomy tube if he was not having irritation prior to the capping trial. History of Present Illness Attending Physician: Kev Oliver MD History of Present Illness 76-year-old male who was admitted to [facility] on 11/16/2021 secondary to chronic diarrhea. Patient notes that he has had this diarrhea since he was diagnosed with a bleeding duodenal ulcer on 09/09/2021 at [facility]. Patient presented to the emergency department secondary to diarrhea as noted above and he was noted to be anemic and therefore admission was recommended. He is currently undergoing a GI evaluation for this problem and there is a plan for a colonoscopy tomorrow. The patient notes that he does have significant urologic history is a history of bladder cancer. Patient says that he has had radiation therapy that concluded approximately 5 years ago. Patient says approximately 3 weeks ago he had to have a percutaneous right nephroureterostomy tube placed which was done at [facility]. He said that this was performed as he had deterioration his right kidney function. Patient states a few days ago they decided to The nephr oureterostomy tube as his renal function was improving. He does note however that since his nephrostomy tube has been capped he has had dysuria as well as urinary frequency. He denies hematuria. He denies any nausea or vomiting. He denies any fevers, shakes, or chills. Patient reports that he does follow locally with Dr. Eloy Awan of urology. Patient's chart was reviewed and most recent visit with Dr. Awan was on 07/21/2021 at which time patient underwent a cystoscopy. The cystoscopy was being performed secondary to hydronephrosis. The cystoscopy revealed that patient had findings consistent with radiation cystitis and attempts to perform stent placement were unsuccessful due to either tumor or scar tissue. For this reason that the patient was referred for the nephroureterostomy tube described above. According to notes that were reviewed the patient initially refused to have this procedure done but ultimately consented as his renal function continued to deteriorate. Since admission to [facility] currently the patient has undergone labs and imaging which I independently reviewed. He did undergo a CT scan of the abdomen and pelvis that showed findings consistent with a nonspecific proctocolitis. He was noted to have a right percutaneous nephrostomy nephroureteral stent in place with mild hydroureteronephrosis that was present on previous scans. There is thickened and perivascular stranding of the urinary bladder as well as urothelial thickening of the right renal pelvis. Most recent labs from today and include include a CBC and which white blood cell count was normal. His hemoglobin and hematocrit were 7.5 and 24.3 and platelet count is normal. Chemistry profile did show a normal sodium and potassium with a BUN and creatinine of 50 and 4.6. This level of creatinine was near patient's current baseline. Patient did have a urinalysis on 11/16/2021 that showed turbid urine with 2+ blood and 3+ leukocyte Estrace. It was negative for nitrites and did show greater than 30 white blood cells per high-power field. No bacteria was noted on the study. A urine culture was performed that was showing more than 3 types of organisms all of moderate count with probable skin pedro. At the time of my interview the patient was resting comfortably in bed and he was in no distress. Allergies Allergy/AdvReac Type Severity Reaction Status Date / Time Iodinated Contrast Media AdvReac Intermediate Hypertensio Verified 11/17/21 14:31 n atorvastatin [From Lipitor] AdvReac Mild muscle Verified 11/17/21 14:31 aches Home Medications Medication Instructions Recorded Confirmed Type dulaglutide 0.75 mg/0.5 mL 0.75 mg (0.5 mL) subcut WEEKLY #2 09/19/19 11/16/21 Rx subcutaneous pen injector mL (Trulicity) albuterol sulfate 90 mcg/actuation 2 puff inhalation QID PRN 05/22/20 11/16/21 Rx aerosol inhaler (Ventolin HFA) shortness of breath or wheezing #18 grams calcitriol 0.25 mcg capsule 0.25 mcg PO QPM 07/17/21 11/16/21 History metoprolol succinate 100 mg 100 mg PO QPM #90 tabs 07/30/21 11/16/21 Rx tablet,extended release 24 hr allopurinol 300 mg tablet 300 mg PO DAILY #90 tabs 10/12/21 11/16/21 Rx levothyroxine 100 mcg tablet 100 mcg PO QAM #90 tabs 10/12/21 11/16/21 Rx (Synthroid) cetirizine 10 mg capsule 10 mg PO DAILY 11/16/21 11/16/21 History cinacalcet 30 mg tablet 30 mg PO 3XWK 11/16/21 11/16/21 History fluticasone propionate 50 2 spray intranasal PRN Dyspnea 11/16/21 History mcg/actuation nasal spray,suspension lactobacillus combination no.4 3 3,000 mmu cells PO DAILY 11/16/21 11/16/21 History billion cell capsule (Probiotic) rosuvastatin 5 mg tablet 5 mg PO QPM 11/16/21 11/16/21 History Patient History Medical History Acid reflux Acute duodenal ulcer with hemorrhage Adenomatous polyp of colon Anemia Atrial fibrillation with rapid ventricular response Benign essential hypertension Benign prostatic hyperplasia 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 Blood loss anemia CAD (coronary atherosclerotic disease) Chronic kidney disease STAGE IV Chronic obstructive pulmonary disease Diabetes mellitus, type 2 Diarrhea Hearing loss History of blood transfusion 01/2021 [facility] History of stroke without residual deficits OCCURRED DURING AAA REPAIR [facility] 5-6 YRS 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-NO ISSUES SINCE Hyperlipidemia Hypothyroidism Past myocardial infarction Port-A-Cath in place Secondary hyperparathyroidism Subclavian artery aneurysm Vocal fold paralysis, left Surgical History H/O arthroscopy of knee H/O transurethral destruction of bladder lesion 08/17/2019 History of biopsy of bladder History of cardiac cath History of carpal tunnel release RIGHT History of cataract surgery BILATERAL History of colonoscopy History of cystoscopy 01/19/2020 History of lymph node biopsy Nephrostomy status R PCN placed by IR 10/23/2021 S/P AAA (abdominal aortic aneurysm) repair Status post biopsy of kidney Family History Grandfather , in his eighties No problems noted. Grandmother , young cause unknown No problems noted. Grandfather , in his eighties No problems noted. Grandmother , did have breast cancer but in her eighties of unknown cause No problems noted. Father , He in his sixties had had three strokes and high blood pressure He had had a kidney removed perhaps from cancer Stroke Mother , in her mid seventies complications from smoking No problems noted. Daughter Age: 50 No problems noted. Daughter Age: 47 No problems noted. Daughter Age: 42 No problems noted. Brother , at age 7 of a stroke Stroke Grandmother (Maternal) Breast cancer Other No family history of adverse response to anesthesia No family history of bleeding disorder Denies family history of Ovarian cancer Prostate cancer Myocardial infarction Colorectal cancer Social History Smoking Status: Current every day smoker Tobacco Type: Cigarettes Age Started Using Tobacco: 10; packs per day: 0.5; Cigarettes Per Day: 10; Second Hand Exposure: No; Do You Dip or Chew Tobacco: No; Tobacco Cessation Education Requested by Patient: No Hx Alcohol Use: No Hx Substance Use: No Preferred Language: [place]al[place] Communication Ability: Effective Visual Impairment: Partially Limited Hearing Ability: Use of Hearing Aid Automatic Clipper And Stripper Required: No Beliefs That Will Affect Care: None marital status: Current Living Situation: Alone current occupational status: retired How many Children do You have: 3 Other Information That Helps Us Care for You: No Feels Safe at Home: Yes Safety Concerns: Feels Safe At This Time Childhood Exposure to Second-Hand Smoke: Yes (Both parents smoked ) Diet Comment: Diabetic diet caffeine: Yes (Coffee tea) during the past year weight has: remained stable Dental Care, Regularly: No Physical Activity Frequency: Does not Exercise Seatbelt Use: always Sunscreen Use: No Do you think of yourself as: straight/heterosexual Assistive Devices: None Review of Systems Constitutional: no fever and no chills Eyes: no eye pain Ear, Nose, Mouth, Throat: no ear pain Respiratory: no cough Cardiovascular: no chest pain Gastrointestinal: + diarrhea/loose stools; no abdominal pain, no nausea and no vomiting Genitourinary: no dysuria Musculoskeletal: no back pain Integumentary: no rash Neurologic: no localized weakness Physical Exam Constitutional: WD/WN, vitals as above Eyes: no conjunctival abnormality ENMT: Ears: no hearing impairment Mouth: no oropharynx abnormality Neck: trachea midline Respiratory: normal respiratory effort; no respiratory distress and no labored breathing Cardiovascular: Rate/Rhythm: regular rate and regular rhythm Gastrointestinal (Abdomen): Abdomen soft, nonrigid, nontender, nondistended. There is no pain with palpation in the region of the abdomen. Musculoskeletal: No calf tenderness Skin: no rashes Neurologic: moves all extremities Psychiatric: A+Ox3, euthymic affect Genitourinary: no CVA tenderness A right cutaneous ureteral nephrostomy tube is present in the right flank. There is no pus or drainage from the insertion site. The surrounding skin does not appear erythematous. No signs of infection. Results & Data ([facility]) Vital Signs (Past 12 Hours) Vital Signs Temp Pulse Pulse Pulse Resp BP Pulse Ox 11/18/21 19:46 11/18/21 19:23 36.8 C 96 H 16 181/86 H 96 11/18/21 15:25 36.4 C L 82 20 166/78 H 98 11/18/21 14:52 84 11/18/21 11:40 36.8 C 71 14 156/84 H 97 O2 Del Method 11/18/21 19:46 Room Air 11/18/21 19:23 Room Air 11/18/21 15:25 Room Air 11/18/21 14:52 11/18/21 11:40 Room Air PG Care Time/CCT Total # of Minutes Spent Total Time Spent with Patient: Total time spent is greater than 50% in coordination of care (as documented) at patient's floor/unit and/or counseling patient: Coding Level of Care Code 93172 Inpt Consult Level 5 Diagnoses Dysuria R30.0
[2021-11-19] MEDS: LAVAGE SOLUTION 4000ML PO SCH (01:59)
[2021-11-19] MEDS: LEVOTHYROXINE SODIUM 100 MCG TABLET PO SCH (05:57)
[2021-11-19 07:51] LABS: Basophils # (auto) 0.05 K/uL (0-0.2); Basophils % (auto) 1.2 %; Eosinophils # (auto) 0.33 K/uL (0-0.50); Eosinophils % (auto) 7.7 %; Hematocrit (blood only) 24.7 % (40.1-51.0); Hemoglobin 7.8 g/dl (14.0-18.0); Immature Granulocytes # (auto) 0.01 K/uL (0.00-0.02); Immature Granulocytes % (auto) 0.2 %; Lymphocytes # (auto) 0.48 K/uL (1.2-3.4); Lymphocytes % (auto) 11.2 %; Mean Corpuscular Hemoglobin 30.7 pg (25.0-34.0); Mean Corpuscular Hgb Conc 31.6 g/dL (32.0-36.0); Mean Corpuscular Volume 97.2 fL (80.0-100.0); Monocytes # (auto) 0.45 K/uL (0.24-0.82); Monocytes % (auto) 10.5 %; Neutrophils # (auto) 2.98 K/uL (1.4-6.5); Neutrophils % (auto) 69.2 %; Platelet Count 159 K/uL (130-400); RDW Coefficient of Variation 16.4 % (11.5-14.5); RDW Standard Deviation 59.3 fL (36.4-46.3); Red Blood Count 2.54 M/uL (4.63-6.08)
[2021-11-19] MEDS: CETIRIZINE HCL 10 MG TABLET PO SCH (08:13)
[2021-11-19] MEDS: allopurinoL 300 MG TAB PO SCH (08:13)
[2021-11-19 08:14] LABS: Albumin Level 2.8 gm/dl (3.4-5.0); Bilirubin,Total 0.3 mg/dl (0.2-1.0); Calcium 7.9 mg/dl (8.5-10.1); Creatinine Clr Calc Pharmacy 12.1 ml/min; Est GFR (African American) 13.9 ml/min; Globulin 2.7 gm/dl (2.5-4.0); Magnesium 1.6 mg/dl (1.7-2.4); Potassium 3.9 mmol/L (3.5-5.1); Total Protein 5.5 gm/dl (6.0-8.3)
[2021-11-19] MEDS: metroNIDAZOLE 500 MG/100 ML BAG IV SCH ×2 (08:14→15:55)
[2021-11-19] MEDS: PANTOprazole 40 MG in SYRINGE 0 ML IV SCH (08:14)
[2021-11-19 08:22] LABS: Ovalocytes 1+
--- NOTE | 2021-11-19 08:47 | History & Physical Bridge Note ---
Date of Service November 19, 2021 History & Physical Bridge Note I have examined the patient, reviewed the History & Physical and in the interval since the performance of the History & Physical I have noted the following changes of clinical significance: Patient is refusing to move forward with his colonoscopy. He notes that he doesn't want to wait until 2 PM for his procedure. Discussed the risk of not moving forward and not completely evaluating his anemia. Patient notes, "I don't care, I'm leaving this hospital." Patient was refusing bowel prep overnight so it is likely he has a suboptimal prep. Per nursing documentation, while giving him his prep he noted to nursing that they should not even bother pouring it because he was not going to drink it. It appears the RN overnight educated patient about the importance of a good bowel prep. He claims to me that he did the bowel prep, however he did not c ooperate with elaborating further details about quality of his prep. Discussed with RN. Notified hospitalist physician. After my encounter, endoscopy unit was notified by RN that patient is now agreeable to moving forward. Keep NPO and move forward with colonoscopy if patient is agreeable this afternoon.
[2021-11-19] MEDS ORDERED: amLODIPine BESYLATE 5 MG TAB PO SCH (09:00)
[2021-11-19] MEDS ORDERED: METOPROLOL TARTRATE 1 MG/ML VIAL IV STA ×2 (10:11→10:34)
[2021-11-19] MEDS ORDERED: METOPROLOL TARTRATE 50 MG TAB PO STA (11:43)
--- NOTE | 2021-11-19 13:00 | Anesthesiology Consultation ---
Date of Service November 19, 2021 Assessment & Plan (1) Encounter for pre-operative examination: Chart Review Chart Review: Acceptable Risk for Surgery and Patient NOT seen in Pre Admission Testing Consults Requested none Additional Notes afib with RVR noted earlier this morning, treated successfully with beta reynaldo therapy and rate controlled appropriately History Surgery Operation Date: 11/17/21 16:30 Proposed Procedures p Esophagogastroduodenoscopy Dr. Jesús Espinosa MD Operation Date: 11/19/21 16:30 Proposed Procedures p Colonoscopy Dr. Jesús Espinosa MD Height/Weight Height: 5 ft 4 in Weight: 68.4 kg Allergies Allergy/AdvReac Type Severity Reaction Status Date / Time Iodinated Contrast Media AdvReac Intermediate Hypertensio Verified 11/17/21 14:31 n atorvastatin [From Lipitor] AdvReac Mild muscle Verified 11/17/21 14:31 aches Medications Home Medications Medication Instructions Recorded Confirmed Last Taken dulaglutide 0.75 mg/0.5 mL 0.75 mg (0.5 mL) subcut WEEKLY #2 09/19/19 11/16/21 11/15/21 subcutaneous pen injector mL (Trulicity) albuterol sulfate 90 mcg/actuation 2 puff inhalation QID PRN 05/22/20 11/16/21 02/01/21 aerosol inhaler (Ventolin HFA) shortness of breath or wheezing #18 grams calcitriol 0.25 mcg capsule 0.25 mcg PO QPM 07/17/21 11/16/21 11/15/21 metoprolol succinate 100 mg 100 mg PO QPM #90 tabs 07/30/21 11/16/21 11/15/21 tablet,extended release 24 hr allopurinol 300 mg tablet 300 mg PO DAILY #90 tabs 10/12/21 11/16/21 11/15/21 levothyroxine 100 mcg tablet 100 mcg PO QAM #90 tabs 10/12/21 11/16/21 11/15/21 (Synthroid) cetirizine 10 mg capsule 10 mg PO DAILY 11/16/21 11/16/21 11/15/21 cinacalcet 30 mg tablet 30 mg PO 3XWK 11/16/21 11/16/21 11/13/21 fluticasone propionate 50 2 spray intranasal PRN Dyspnea 11/16/21 Unknown mcg/actuation nasal spray,suspension lactobacillus combination no.4 3 3,000 mmu cells PO DAILY 11/16/21 11/16/21 11/15/21 billion cell capsule (Probiotic) rosuvastatin 5 mg tablet 5 mg PO QPM 11/16/21 11/16/21 11/15/21 Active Medications Generic Name Dose Route Start Last Admin Trade Name Freq PRN Reason Stop Dose Admin Allopurinol 300 mg 11/16/21 12:15 11/19/21 08:13 Allopurinol 300 Mg Tab PO 12/16/21 12:14 300 mg DAILY JESSE Administration Amlodipine Besylate 5 mg 11/19/21 09:00 11/19/21 08:12 Amlodipine Besylate 5 Mg Tab PO 12/19/21 08:59 5 mg QAM JESSE Administration Calcitriol 0.25 mcg 11/16/21 21:00 11/18/21 20:52 Calcitriol 0.25 Mcg Capsule PO 12/16/21 20:59 0.25 mcg QPM JESSE Administration Cetirizine HCl 10 mg 11/16/21 12:30 11/19/21 08:13 Cetirizine Hcl 10 Mg Tablet PO 12/16/21 12:29 10 mg DAILY JESSE Administration Hydralazine HCl 10 mg 11/17/21 18:27 11/18/21 20:51 Hydralazine Hcl 20 Mg/Ml Vial IV 12/17/21 18:26 10 mg Q4H PRN Administration sBP > 180 Pantoprazole Sodium 40 mg/ 10 mls @ 5 mls/min 11/16/21 09:00 11/19/21 08:14 Syringe IV 12/16/21 08:59 5 mls/min BID JESSE Administration Ceftriaxone Sodium 2,000 mg/ 70 mls @ 100 mls/hr 11/18/21 15:15 11/18/21 17:15 Dextrose IV 11/20/21 15:14 Infused Q24H JESSE Infusion Protocol Metronidazole 500 mg in 100 mls @ 100 mls/hr 11/18/21 15:30 11/19/21 10:11 Flagyl IV 11/20/21 15:29 Infused Q8H JESSE Infusion Levothyroxine Sodium 100 mcg 11/17/21 06:30 11/19/21 05:57 Levothyroxine Sodium 100 Mcg Tablet PO 12/17/21 06:29 100 mcg DAILYBB JESSE Administration Lidocaine 1 appln 11/17/21 20:07 11/17/21 22:57 Lidocaine 4% Cream 15 Gm Tube EXT 12/17/21 20:06 1 appln Q8H PRN Administration Affected Skin Folds Rosuvastatin Calcium 5 mg 11/16/21 21:00 11/18/21 20:52 Rosuvastatin Calcium 5 Mg Tab PO 12/16/21 20:59 5 mg QPM JESSE Administration NPO Date Last Intake of Fluids: 11/17/21 Time Last Intake of Fluids: 08:30 Date Last Intake of Solids: 11/16/21 Time Last Intake of Solids: 17:00 Past Medical History Medical History Acid reflux Acute duodenal ulcer with hemorrhage Adenomatous polyp of colon Anemia Atrial fibrillation with rapid ventricular response Benign essential hypertension Benign prostatic hyperplasia 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 Blood loss anemia CAD (coronary atherosclerotic disease) Chronic kidney disease STAGE IV Chronic obstructive pulmonary disease Diabetes mellitus, type 2 Diarrhea Hearing loss History of blood transfusion 01/2021 [facility] History of stroke without residual deficits OCCURRED DURING AAA REPAIR [facility] 5-6 YRS 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-NO ISSUES SINCE Hyperlipidemia Hypothyroidism Past myocardial infarction Port-A-Cath in place Secondary hyperparathyroidism Subclavian artery aneurysm Vocal fold paralysis, left Past Family History Family History Grandfather , in his eighties No problems noted. Grandmother , young cause unknown No problems noted. Grandfather , in his eighties No problems noted. Grandmother , did have breast cancer but in her eighties of unknown cause No problems noted. Father , He in his sixties had had three strokes and high blood pressure He had had a kidney removed perhaps from cancer Stroke Mother , in her mid seventies complications from smoking No problems noted. Daughter Age: 50 No problems noted. Daughter Age: 47 No problems noted. Daughter Age: 42 No problems noted. Brother , at age 7 of a stroke Stroke Grandmother (Maternal) Breast cancer Other No family history of adverse response to anesthesia No family history of bleeding disorder Denies family history of Ovarian cancer Prostate cancer Myocardial infarction Colorectal cancer Past Surgical History Surgical History H/O arthroscopy of knee H/O transurethral destruction of bladder lesion 08/17/2019 History of biopsy of bladder History of cardiac cath History of carpal tunnel release RIGHT History of cataract surgery BILATERAL History of colonoscopy History of cystoscopy 01/19/2020 History of lymph node biopsy Nephrostomy status R PCN placed by IR 10/23/2021 S/P AAA (abdominal aortic aneurysm) repair Status post biopsy of kidney Social History Smoking Status: Current every day smoker tobacco type: cigarettes Smoking cigarettes per day: 10 Do You Dip or Chew Tobacco: No Hx Alcohol Use: No Hx Substance Use: No substance use type: does not use Physical Exam Vital Signs Last Vital Signs Temp 98.4 F 11/19/21 10:17 Pulse 96 H 11/19/21 11:08 Resp 16 11/19/21 10:17 BP 132/61 11/19/21 10:17 Pulse Ox 95 11/19/21 10:17 O2 Del Method 11/19/21 11:03 Testing Laboratory Results 11/19/21 07:18 11/19/21 07:18 Hemoglobin A1c 6.6 % (4.5-5.6) H 11/17/21 05:32 Urine Color Yellow 11/16/21 04:22 Urine Appearance Turbid (Clear) A 11/16/21 04:22 Urine pH 6.5 (4.5-7.5) 11/16/21 04:22 Ur Specific [place] 1.015 (1.000-1.030) 11/16/21 04:22 Urine Protein 3+ (Negative) H 11/16/21 04:22 Urine Glucose (UA) Negative (Negative) 11/16/21 04:22 Urine Ketones Negative (Negative) 11/16/21 04:22 Urine Nitrite Negative (Negative) 11/16/21 04:22 Ur Leukocyte Esterase 3+ (Negative) H 11/16/21 04:22 Urine WBC (Auto) >30 /hpf (0-5) H 11/16/21 04:22 Urine RBC (Auto) 0-4 /hpf (0-4) 11/16/21 04:22 U Hyaline Cast (Auto) 0 /lpf (0-5) 11/16/21 04:22 U Epithel Cells (Auto) 10-20 /lpf (0-5) H 11/16/21 04:22 Urine Bacteria (Auto) Negative (Negative) 11/16/21 04:22 Blood Type O Positive 11/16/21 05:35 Antibody Screen NEGATIVE 11/16/21 05:35 11/16/21 04:22 Urine Culture - Final Urine,Clean Catch More than three types of organisms present, all moderate counts mixed probable skin pedro. No further identifications or sensitivities to follow. 11/19/21 11/19/21 11:17 07:00 POC Glucose 98 92
--- NOTE | 2021-11-19 14:00 | Communication Note ---
Date of Service: November 19, 2021 Attempted to see patient at bedside this afternoon, however he was off the floor for procedure. Chart reviewed. 76yo M admitted for acute GI bleed/proctocolitis undergoing GI work-up. Urology consulted for dysuria. From a urology perspective we recommend the following- His underlying urinary symptoms may be due to underlying radiation cystitis, irritation from nephroureteral catheter, lower suspicion for infection. Recommend treating the patient symptomatically with analgesics, oxybutynin, or Belladonna & Opium suppositories as needed. Patient's most recent urine culture did not reveal UTI. If there is ongoing concern the patient may have an underlying urinary tract infection, a repeat urine culture can be collected. It would also be reasonable to try uncapping nephrostomy tube if he was not having irritation prior to the capping trial. Plan for outpatient follow-up with urology as scheduled. Urology will sign-off. Please contact us with any further questions, concerns, or changes in patient status. Agree with note above. Attempted to round with TEENA but patient was getting GI procedure.
--- NOTE | 2021-11-19 14:59 | GI REPORT ---
Patient Name: Sawyer Crews Procedure Date: 11/19/2021 1:38 PM Date of : 1945 Admit Type: Inpatient Age: 76 Gender: Male Attending MD: Ortega Espinosa MD Procedure: Colonoscopy Providers: Ortega Espinosa MD Referring MD: Edvin Monroe M.d. Indications: Hematochezia, Melena Medicines: Monitored Anesthesia Care Complications: No immediate complications. Estimated blood loss: None. Estimated Blood Loss: Estimated blood loss: none. Procedure: Pre-Anesthesia Assessment: - Prior Anticoagulants: The patient has taken no previous anticoagulant or antiplatelet agents. - ASA Grade Assessment: III - A patient with severe systemic disease. After I obtained informed consent, the scope was passed under direct vision. Throughout the procedure, the patient's blood pressure, pulse, and oxygen saturations were monitored continuously. The scope was introduced through the anus and advanced to the cecum, identified by appendiceal orifice and ileocecal valve. The colonoscopy was performed without difficulty. The patient tolerated the procedure well. The quality of the bowel preparation was poor. Findings: A 11 mm polyp was found in the sigmoid colon. The polyp was pedunculated. The polyp was removed with a hot snare. Resection and retrieval were complete. To prevent bleeding after the polypectomy, two hemostatic clips were successfully placed. There was no bleeding at the end of the procedure. A 5 mm polyp was found in the ascending colon. The polyp was sessile. The polyp was removed with a cold snare. Resection was complete, but the polyp tissue was not retrieved. Estimated blood loss: none. A 4 mm polyp was found in the descending colon. The polyp was sessile. The polyp was removed with a cold snare. Resection and retrieval were complete. Estimated blood loss: none. A 4 mm polyp was found in the transverse colon. The polyp was sessile. The polyp was removed with a cold snare. Resection and retrieval were complete. Estimated blood loss: none. Multiple small and large-mouthed diverticula were found in the sigmoid colon and descending colon. A single large localized angioectasia without bleeding was found in the cecum. Coagulation for hemostasis using argon plasma at 1.2 liters/minute and 30 herrera was successful. Estimated blood loss: none. Impression: - Preparation of the colon was poor. - One 11 mm polyp in the sigmoid colon, removed with a hot snare. Resected and retrieved. Clips were placed. - One 5 mm polyp in the ascending colon, removed with a cold snare. Complete resection. Polyp tissue not retrieved. - One 4 mm polyp in the descending colon, removed with a cold snare. Resected and retrieved. - One 4 mm polyp in the transverse colon, removed with a cold snare. Resected and retrieved. - Severe diverticulosis in the sigmoid colon and in the descending colon. - A single non-bleeding colonic angioectasia. Treated with argon plasma coagulation (APC). Recommendation: - [facility]. - Await pathology results. - Advance diet as tolerated today. if stable from cardiac/afib perspective, ok for discharge from GI perspective, will defer to primary team. Ortega Espinosa MD 11/19/2021 2:58:45 PM This report has been signed electronically. Note Initiated On: 11/19/2021 1:38 PM Number of Addenda: 0 I attest to the content of the Intraoperative Record and orders documented therein, exceptions below {[id number]}
[2021-11-19] MEDS: cefTRIAXone SODIUM 2,000 MG in DEXTROSE 5% 50 ML IV SCH (15:54)
[2021-11-19 16:12] VITALS: BP 114/68; TEMP 97.3; O2SAT 94
[2021-11-19] MEDS ORDERED: ADVANCED PROBIOTIC 1250 MG CAPSULE PO SCH (16:30)
--- NOTE | 2021-11-19 16:48 | Electrocardiogram Report ---
Test Reason : Blood Pressure : / mmHG Vent. Rate : 092 BPM Atrial Rate : 092 BPM P-R Int : 202 ms QRS Dur : 078 ms QT Int : 366 ms P-R-T Axes : 044 -16 023 degrees QTc Int : 452 ms Normal sinus rhythm Low voltage QRS Old Inferior infarct (cited on or before 16-NOV-2021) Old Anterior infarct (cited on or before 16-NOV-2021) Abnormal ECG When compared with ECG of 19-NOV-2021 11:59, No significant change Confirmed by Radames Astorga ([id number]) on 11/19/2021 4:48:32 PM Referred By: REFERRED SELF Confirmed By:Radames Astorga
--- NOTE | 2021-11-19 16:50 | Anesthesiology Progress Note ---
Date of Service November 19, 2021 Anesthesia Post Procedure Vital Signs Vital Signs: Temp Pulse Pulse Pulse Resp BP BP 11/19/21 16:21 96 H 11/19/21 16:11 36.3 C L 91 H 14 114/68 11/19/21 15:26 82 18 147/79 H 11/19/21 15:11 82 18 111/74 11/19/21 14:56 81 18 99/59 L 11/19/21 13:30 36.8 C 84 18 146/74 H 11/19/21 11:08 96 H 11/19/21 11:03 11/19/21 10:47 134 H 11/19/21 10:22 161 H 11/19/21 10:17 36.9 C 161 H 16 132/61 11/19/21 07:49 36.6 C 89 16 173/74 H 11/19/21 07:48 102 H 11/19/21 06:00 11/19/21 03:43 36.9 C 101 H 16 149/79 H 11/18/21 22:17 110 H 11/19/21 00:28 37.0 C 109 H 16 115/68 11/18/21 19:46 11/18/21 19:23 36.8 C 96 H 16 181/86 H Pulse Ox Pulse Ox O2 Del Method O2 Del Method 11/19/21 16:21 11/19/21 16:11 94 Room Air 11/19/21 15:26 97 Room Air 11/19/21 15:11 95 Room Air 11/19/21 14:56 96 Room Air 11/19/21 13:30 96 Room Air 11/19/21 11:08 11/19/21 11:03 Room Air 11/19/21 10:47 11/19/21 10:22 11/19/21 10:17 95 Room Air 11/19/21 07:49 98 Room Air 11/19/21 07:48 11/19/21 06:00 96 Room Air 11/19/21 03:43 97 Room Air 11/18/21 22:17 11/19/21 00:28 96 Room Air 11/18/21 19:46 Room Air 11/18/21 19:23 96 Room Air Pain Intensity Abdomen: Pain Intensity: 3 Transfer of Care Handoff Completed per policy Notes Mental Status: alert / awake / arousable Patient Amnestic to Procedure: Yes Nausea / Vomiting: adequately controlled Pain: adequately controlled Airway Patency, RR, SpO2: stable & adequate BP & HR: stable & adequate Hydration State: stable & adequate Anesthetic Complications: no major complications apparent
[2021-11-19 16:55] VITALS: PULSE 91
--- NOTE | 2021-11-19 17:07 | Discharge Summary ---
Date of Service November 19, 2021 Admission HPI Per Admitting Provider The patient is a 76-year-old male with a past medical history including SNHL, ETD, chronic diarrhea, acute duodenal ulcer with hemorrhage requiring transfusion, blood loss anemia, left vocal cord paralysis, radiation cystitis, CKD stage IV, hypertension, subclavian artery aneurysm, bladder cancer metastasized to lung, diabetes mellitus type 2, past CO, secondary hyperparathyroidism, kidney stones, status post AAA repair, hypothyroidism, hyperlipidemia, history of stroke without residual deficits, gout, CAD, BPH, acid reflux and malignant neoplasm of lateral wall of bladder. The patient reports that he has had chronic diarrhea since his duodenal ulcer bleeding on 09/09/2021 at [facility]. He reports being scheduled for a repeat endoscopy on 11/28/2021 with [facility], having recently been seen by RHODA Montelongo. Principal Diagnosis Acute GI bleeding Discharge Exam Constitutional: WD/WN, vitals as above Respiratory: normal respiratory effort, lungs clear to auscultation Cardiovascular: RRR, no murmur, no edema Gastrointestinal (Abdomen): normal bowel sounds, soft, nontender, no hepa tosplenomegaly Skin: no rashes, warm and dry Psychiatric: A+Ox3, euthymic affect Discharge Data Allergies Allergy/AdvReac Type Severity Reaction Status Date / Time Iodinated Contrast Media AdvReac Intermediate Hypertensio Verified 11/17/21 14:31 n atorvastatin [From Lipitor] AdvReac Mild muscle Verified 11/17/21 14:31 aches Consultations 11/16/21 05:12 ED Decision to Admit Stat 11/16/21 06:44 Consult Gastroenterology Routine 11/18/21 21:31 Consult Urology Routine Procedures Performed Operation Date: 11/17/21 16:30 Actual Procedures p EGD Biopsy Cytology - Ortega Espinosa MD Operation Date: 11/19/21 16:30 Actual Procedures p Colonoscopy Polypectomy - Ortega Espinosa MD Ordered Studies 11/16/21 03:39 CT abd pelvis wo con Urgent Hospital Course (1) Acute GI bleeding: Acute GI bleeding/proctocolitis- Wall thickening of the colon and rectum suggestive of proctocolitis - will switch to IV ceftriaxone + metronidazole for total duration of 5 days Stool PCR negative for infective etiology CBC daily - hemoglobin appears to be stable without needing blood transfusion, current Hgb 7.5. Patient reports having diarrhea ever since he had the acute duodenal ulcer with hemorrhaging on 09/09/2021 at [facility]. He reports needing more than 10 units of PRBCs during that admission EGD - gastritis, non-bleeding duodenal ulcer with no stigmata of bleeding, erythematous duodenopathy. TREATED ON Protonix 40 mg IV twice daily, will transtion to PO. Colonscopy results noted below: Preparation of the colon was poor. - One 11 mm polyp in the sigmoid colon, removed with a hot snare. Resected and retrieved. Clips were placed. - One 5 mm polyp in the ascending colon, removed with a cold snare. Complete resection. Polyp tissue not retrieved. - One 4 mm polyp in the descending colon, removed with a cold snare. Resected and retrieved. - One 4 mm polyp in the transverse colon, removed with a cold snare. Resected and retrieved. - Severe diverticulosis in the sigmoid colon and in the descending colon. - A single non-bleeding colonic angioectasia. Treated with argon plasma coagulation (APC). (2) Acute duodenal ulcer with hemorrhage: As above (3) Proctocolitis with rectal bleeding: IV ceftriaxone and metronidazole / however antibitoics will be discontinued at discharge due to no infection noted on colonoscopy. (4) UTI (urinary tract infection): Possible diagnosis given dysuria but given this has not improved with antibiotics unclear what is causing this. Urine culture with mixed pedro Will consult urology (5) Diarrhea: Chronic diarrhea as noted. Consider Imodium following colonoscopy. Continue lactobacillus (6) Hypomagnesemia: Resolved (7) Chronic kidney disease, stage IV (severe): Creatinine 4.26 upon admission, with range 4.08-6.53 Follow laboratories every morning - stable, will restart on slow IV fluids due to mild increase today Follows with Dr. Cody Garcia nephrology (8) Malignant neoplasm of lateral wall of bladder: Bladder cancer/UTI/right nephroureteral stent/bladder wall thickness- Urostomy currently clamped. (9) Hypertension: Patient reports not taking his metoprolol succinate at home. We will treat with hydralazine 10 mg IV every 4 hourly as needed for systolic blood pressure greater than 180. In August he was prescribed amlodipine 10mg PO daily which I suspect was stopped at the time of his GI bleed Will restart this at half his previous dose with amlodipine 5mg PO daily (10) Subclavian artery aneurysm: He was just seen at [facility] last week, and reportedly is to undergo repair, but he was going to wait until January to allow healing from previous duodenal ulcer (11) Diabetes mellitus, type 2: held PO meds, will resume home regiemn at discharge. (12) Secondary hyperparathyroidism: (13) Hyperlipidemia: Continued rosuvastatin 5 mg p.o. every afternoon during hospital stay/ (14) Hypothyroidism: Continue levothyroxine 100 mcg p.o. daily (15) CAD (coronary atherosclerotic disease): No acute issues (16) Benign prostatic hyperplasia: Urine output was stable during stay. (17) Acid reflux: See above Total Time Total Time Spent Total Time Spent (In Minutes): 35 Discharge Plan Discharge Items Patient Disposition: Home - Self-Care Reason For Visit: DIARRHEA,ABDOMINAL PAIN,SHAKING Discharge Diagnosis: diarrhea Condition on Discharge: Fair Activity: Resume your previous activity Non-emergency contact: Primary Care Provider Call non-emergency contact if: you have any medication questions Follow-up/Referrals: Hilda Berry MD [Primary Care Provider] - Diet: Low Fiber Addtl Attending Provider Instructions: Please take medications as prescribed below. Recommend followup with GI in 1 month. Recommend followup with Urology in 1 month. If symptoms do not improve with oxybutynin, please call for a sooner appointment. Recommend followup with your PCP in 1-2 weeks. Will need to recheck your blood work. Pending Studies at Discharge: No Stand-Alone Forms: My [facility], Smoking Cessation Medications and DC Order Prescriptions: New oxybutynin chloride 5 mg tablet extended release 24 hr 5 mg PO DAILY Qty: 30 0RF pantoprazole [Protonix] 40 mg tablet,delayed release (DR/EC) 40 mg PO BID Qty: 60 0RF ferrous sulfate 325 mg (65 mg iron) tablet 325 mg PO .mwf Qty: 14 0RF Rx Instructions: Take one tablet Tuesday Continued metoprolol succinate 100 mg tablet extended release 24 hr 100 mg PO QPM Qty: 90 3RF Label Comments: 08/14/19 - PT STATES CURRENTLY NOT TAKING MEDICATION Trulicity 0.75 mg/0.5 mL pen injector 0.75 mg SQ WEEKLY Qty: 2 0RF Rx Instructions: PT TAKES ON TUESDAY albuterol sulfate [Ventolin HFA] 90 mcg/actuation HFA aerosol inhaler 2 puff inhalation QID PRN (Reason: shortness of breath or wheezing) Qty: 18 2 RF allopurinol 300 mg tablet 300 mg PO DAILY Qty: 90 3RF levothyroxine [Synthroid] 100 mcg tablet 100 mcg PO QAM Qty: 90 3RF calcitriol 0.25 mcg capsule 0.25 mcg PO QPM fluticasone propionate 50 mcg/actuation spray,suspension 2 spray intranasal PRN (Reason: Dyspnea) Rx Instructions: uses for sob rosuvastatin 5 mg Tablet 5 mg PO QPM cinacalcet 30 mg Tablet 30 mg PO [id number] Rx Instructions: tue cetirizine 10 mg Capsule 10 mg PO DAILY Probiotic 3 billion cell Capsule 3,000 mmu cells PO DAILY Rx Instructions: administer with a meal Discharge Orders: Discharge Order (Routine); Ordered 11/19/21 Ordered By: Edvin Monroe Admission Data Admit Date/Time: 11/16/21 05:51 Attending Provider: Edvin Monroe Admit Provider: Arun Cobb Primary Care Provider: Hilda Berry. Other Providers: Arun Cobb ; Ortega Espinosa ; Franklyn Martin Other Interventions: Discharge Summary Assessment (RN) Last Done: 11/19/21 16:54 Coding Level of Care Code D/C DAY MANAGEMENT >30 MINS Diagnoses Acute GI bleeding K92.2 Acute duodenal ulcer with hemorrhage K26.0 Proctocolitis with rectal bleeding K52.9; K62.5 UTI (urinary tract infection) N39.0 Diarrhea R19.7 Hypomagnesemia E83.42 Chronic kidney disease, stage IV (severe) N18.4 Malignant neoplasm of lateral wall of bladder C67.2 Hypertension I10 Subclavian artery aneurysm I72.8 Diabetes mellitus, type 2 E11.9 Secondary hyperparathyroidism N25.81 Hyperlipidemia E78.2 Hyperlipidemia type: mixed hyperlipidemia Hypothyroidism E03.9 Hypothyroidism type: acquired CAD (coronary atherosclerotic disease) I25.10 Benign prostatic hyperplasia N40.1; R33.8 Lower urinary tract symptom detail: urinary retention Lower urinary tract symptom presence: symptoms present Acid reflux K21.9
== END 2021-11-19 17:49 | disposition home or self-care (01) | DRG 386 ==
LOC: ED 03:18 → SUATTDRO 05:51 → ASUINP 05:51 → 2S 06:22

== ENCOUNTER 2021-11-29 00:23 | Inpatient (IN) ==
[2021-11-29 02:43] LABS: Appearance Urine Turbid (Clear); Bilirubin Urine Negative (Negative); Blood Urine 3+ (Negative); Color Urine Red; Glucose Urine UA Trace (Negative); Ketones Urine Negative (Negative); Protein Urine 3+ (Negative); Specific Gravity Urine 1.025 (1.000-1.030); Urobilinogen Urine Negative (Negative)
[2021-11-29 02:44] LABS: Leukocyte Esterase Urine 1+ (Negative); Nitrite Urine Negative (Negative)
[2021-11-29 02:46] LABS: Albumin Globulin Ratio 1.1 (0.9-2); Albumin Level 3.3 gm/dl (3.4-5.0); BUN Creatinine Ratio 12.6 (10-20); Bilirubin,Total 0.3 mg/dl (0.2-1.0); Calcium 7.8 mg/dl (8.5-10.1); Creatinine Clr Calc Pharmacy 13.1 ml/min; Est GFR (African American) 15.4 ml/min; Est GFR (Non-African American) 13.3 ml/min; Total Protein 6.3 gm/dl (6.0-8.3)
[2021-11-29 02:48] LABS: RBC Urine >30 /hpf (0-4)
[2021-11-29 02:49] LABS: Bacteria Urine Negative (Negative); Epithelial Cell Urine 0-5 /lpf (0-5); WBC Urine >30 /hpf (0-5)
[2021-11-29 03:09] LABS: Basophils # (auto) 0.03 K/uL (0-0.2); Basophils % (auto) 0.4 %; Eosinophils # (auto) 0.22 K/uL (0-0.50); Eosinophils % (auto) 3.2 %; Hematocrit (blood only) 22.4 % (40.1-51.0); Immature Granulocytes # (auto) 0.08 K/uL (0.00-0.02); Immature Granulocytes % (auto) 1.2 %; Lymphocytes # (auto) 0.61 K/uL (1.2-3.4); Lymphocytes % (auto) 8.8 %; Mean Corpuscular Hemoglobin 30.6 pg (25.0-34.0); Mean Corpuscular Hgb Conc 31.3 g/dL (32.0-36.0); Mean Corpuscular Volume 97.8 fL (80.0-100.0); Mean Platelet Volume 10.9 fL (9.4-12.4); Monocytes # (auto) 0.76 K/uL (0.24-0.82); Neutrophils # (auto) 5.23 K/uL (1.4-6.5); Neutrophils % (auto) 75.4 %; Nucleated RBC # (auto) 0.03 K/uL (0-0); Nucleated RBC % (auto) 0.4 %; Platelet Count 198 K/uL (130-400); RDW Coefficient of Variation 17.4 % (11.5-14.5); RDW Standard Deviation 60.6 fL (36.4-46.3); Red Blood Count 2.29 M/uL (4.63-6.08); White Blood Count 6.93 K/ul (4.8-10.8)
[2021-11-29 03:28] LABS: Anisocytosis Present; Basophilic Stippling 1+; Polychromasia 1+; Tear Drop Cells 1+
[2021-11-29] MEDS ORDERED: LIDOCAINE 2% JELLY 5 ML TUBE EXT ONE (04:02)
[2021-11-29] MEDS ORDERED: fentaNYL citrate 100 MCG/2 ML VIAL IV PRN (04:50)
[2021-11-29] MEDS ORDERED: SODIUM CHLORIDE 0.9% 250 ML IV PRN ×2 (05:15→06:07)
--- NOTE | 2021-11-29 05:22 | Emergency Department Note ---
History of Present Illness General Chief complaint: Hematuria Stated complaint: BLOOD IN URINE Time Seen by Provider: 11/29/21 02:04 Source: patient and family Mode of arrival: ambulatory Limitations: no limitations History of Present Illness Provider complaint: Unable to urinate, blood in urine This is a 76-year-old male presents emergency department with concern for inability to urinate and recent blood in his urine. Patient does have a history of bladder cancer and is being treated by urology. He has previously had blood in his urine and needed cauterization in his bladder. He states he has been intermittently seeing blood in his urine over the last several weeks. He states he did notice clots with urination earlier today and then this evening between 9 and 10:00 was unable to urinate. He began noticing lower abdominal pain and pressure. Patient does have a right-sided percutaneous nephrostomy tube. He states that was capped 3 weeks ago. When he realized his symptoms were worsening and he was unable to urinate normally, with the assistance of family they uncapped his nephrostomy tube and hooked up a bag and were able to drain 200 mL. Patient states this coming week he was scheduled to see Dr. Martinez for labs as well as a blood transfusion as his counts have been running low, between 8 and 9. He was then scheduled to start chemotherapy again later this week. Patient denies fevers, chills, chest pain, shortness of breath or cough. He states he did feel more fatigued over the last several days and was a little more unsteady on his feet. Patient does not take any antiplatelet or anticoagulation therapy as he recently had bleeding stomach ulcers. Pt seen during a time of high acuity and national emergency pandemic while wearing PPE. Home Medications Medication Instructions Recorded Confirmed Type dulaglutide 0.75 mg/0.5 mL 0.75 mg (0.5 mL) subcut WEEKLY #2 09/19/19 11/29/21 Rx subcutaneous pen injector mL (Trulicity) albuterol sulfate 90 mcg/actuation 2 puff inhalation QID PRN 05/22/20 11/29/21 Rx aerosol inhaler (Ventolin HFA) shortness of breath or wheezing #18 grams calcitriol 0.25 mcg capsule 0.25 mcg PO QPM 07/17/21 11/29/21 History metoprolol succinate 100 mg 100 mg PO QPM #90 tabs 07/30/21 11/29/21 Rx tablet,extended release 24 hr levothyroxine 100 mcg tablet 100 mcg PO QAM #90 tabs 10/12/21 11/29/21 Rx (Synthroid) cetirizine 10 mg capsule 10 mg PO QAM 11/16/21 11/29/21 History cinacalcet 30 mg tablet 30 mg PO 3XWK 11/16/21 11/29/21 History fluticasone propionate 50 2 spray intranasal DAILY PRN 11/16/21 11/29/21 History mcg/actuation nasal Dyspnea spray,suspension lactobacillus combination no.4 3 3,000 mmu cells PO QAM 11/16/21 11/29/21 History billion cell capsule (Probiotic) rosuvastatin 5 mg tablet 5 mg PO QPM 11/16/21 11/29/21 History pantoprazole 40 mg tablet,delayed 40 mg PO BID #60 tabs 11/19/21 11/29/21 Rx release (Protonix) allopurinol 300 mg tablet 300 mg PO QAM 11/29/21 11/29/21 History ferrous sulfate 325 mg (65 mg 325 mg PO 3XWK 11/29/21 11/29/21 History iron) tablet oxybutynin chloride 5 mg 5 mg PO QAM 11/29/21 11/29/21 History tablet,extended release 24 hr tamsulosin 0.4 mg capsule 0.4 mg PO BID 11/29/21 11/29/21 History Allergies Allergy/AdvReac Type Severity Reaction Status Date / Time Iodinated Contrast Media AdvReac Intermediate Hypertensio Verified 11/29/21 02:32 n atorvastatin [From Lipitor] AdvReac Mild muscle Verified 11/29/21 02:32 aches Past Med/Surg History Medical History Acid reflux Acute duodenal ulcer with hemorrhage Adenomatous polyp of colon Anemia Atrial fibrillation with rapid ventricular response Benign essential hypertension Benign prostatic hyperplasia 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 Blood loss anemia CAD (coronary atherosclerotic disease) Chronic kidney disease STAGE IV Chronic obstructive pulmonary disease Diabetes mellitus, type 2 Diarrhea Hearing loss History of blood transfusion 01/2021 [facility] History of stroke without residual deficits OCCURRED DURING AAA REPAIR [facility] 5-6 YRS 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-NO ISSUES SINCE Hyperlipidemia Hypothyroidism Past myocardial infarction Port-A-Cath in place Secondary hyperparathyroidism Subclavian artery aneurysm Vocal fold paralysis, left Surgical History H/O arthroscopy of knee H/O transurethral destruction of bladder lesion 08/17/2019 History of biopsy of bladder History of cardiac cath History of carpal tunnel release RIGHT History of cataract surgery BILATERAL History of colonoscopy History of cystoscopy 01/19/2020 History of esophagogastroduodenoscopy (EGD) History of lymph node biopsy Nephrostomy status R PCN placed by IR 10/23/2021 S/P AAA (abdominal aortic aneurysm) repair Status post biopsy of kidney Family History Grandfather , in his eighties No problems noted. Grandmother , young cause unknown No problems noted. Grandfather , in his eighties No problems noted. Grandmother , did have breast cancer but in her eighties of unknown cause No problems noted. Father , He in his sixties had had three strokes and high blood pressure He had had a kidney removed perhaps from cancer Stroke Mother , in her mid seventies complications from smoking No problems noted. Daughter Age: 50 No problems noted. Daughter Age: 47 No problems noted. Daughter Age: 42 No problems noted. Brother , at age 7 of a stroke Stroke Grandmother (Maternal) Breast cancer Other No family history of adverse response to anesthesia No family history of bleeding disorder Denies family history of Ovarian cancer Prostate cancer Myocardial infarction Colorectal cancer Social History Smoking Status: Former smoker Tobacco Type: Cigarettes Age Started Using Tobacco: 10; packs per day: 0.5; Cigarettes Per Day: 10; Second Hand Exposure: No; Hx Alcohol Use: No Hx Substance Use: No Preferred Language: [place]er Communication Ability: Effective Visual Impairment: Partially Limited Hearing Ability: Use of Hearing Aid Ampoule Filler Required: No Beliefs That Will Affect Care: None marital status: Current Living Situation: Alone current occupational status: retired How many Children do You have: 3 Feels Safe at Home: Yes Childhood Exposure to Second-Hand Smoke: Yes (Both parents smoked ) Diet Comment: Diabetic diet caffeine: Yes (Coffee tea) during the past year weight has: remained stable Dental Care, Regularly: No Physical Activity Frequency: Does not Exercise Seatbelt Use: always Sunscreen Use: No Do you think of yourself as: straight/heterosexual Assistive Devices: None Review of Systems A total of 10 systems reviewed and were otherwise negative All systems reviewed & are unremarkable except as noted in HPI & below Physical Exam Vital Signs Vital Signs - 24 hr 11/29/21 05:56 Pulse Rate [Apical] 69 Respiratory Rate 16 Respiratory Effort / Characteristics Non-Labored Respiratory Depth Normal Respiratory Pattern Regular Blood Pressure [Right Arm] 155/76 H Blood Pressure Mean [Right Arm] 102 Blood Pressure Position [Right Arm] Lying Pulse Oximetry 97 Oxygen Delivery Method Room Air GENERAL: alert, well appearing, well nourished, no distress, non-toxic EYE EXAM: normal conjunctiva, PERRL and EOM's grossly intact OROPHARYNX: no exudate, no erythema, lips, buccal mucosa, and tongue normal and mucous membranes are moist NECK: supple, no nuchal rigidity, no adenopathy, non-tender LUNGS: Clear to auscultation. Normal chest wall mechanics, no w/r/r HEART: no murmurs, S1 normal and S2 normal ABDOMEN: abdomen soft, non-tender, normo-active bowel sounds, no masses, no rebound or guarding. BACK: Back is symmetrical on inspection and there is no deformity, no midline tenderness, no CVA tenderness. Right-sided percutaneous nephrostomy tube noted in the right low back, skin site without erythema, bleeding, or discharge. Attached bag does have obvious hematuria. SKIN: no rashes and no bruising UPPER EXTREMITIES: upper extremities are grossly normal. FROM, nml pulses b/l. LOWER EXTREMITIES: No pitting edema. FROM, nml pulses b/l. NEURO EXAM: Normal sensorium, cranial nerves II-XII grossly intact, normal speech, no gross weakness of arms, no gross weakness of legs. Gross sensation intact. Course Course 050: Three-way catheter was placed and several blood clots able to be irrigated from out of the bladder. 704: Discussed with Dr. Piper, urology. Administered Medications Hydromorphone HCl (Hydromorphone Inj 0.5 Mg/0.5 Ml Syr) 0.1 mg IV Q6H PRN PRN Reason: Severe Pain Stop: 12/13/21 09:51 Last Admin: 11/29/21 23:03 Dose: 0.1 mg Documented By: Admin: 11/29/21 14:30 Dose: 0.1 mg Documented By: REGINA Sodium Chloride (Nss 1000ml) 1,000 mls @ 125 mls/hr IV .Q8H [facility] Stop: 11/30/21 06:14 Last Admin: 11/29/21 22:33 Dose: 125 mls/hr Documented By: SHANI Insulin Aspart (Insulin Aspart Per Unit) 0 units SC ACHS JESSE Stop: 12/29/21 16:29 Last Admin: 11/29/21 20:41 Dose: Not Given Documented By: SHANI Co-signed By: FROILAN Admin: 11/29/21 16:50 Dose: Not Given Documented By: WAQAR Insulin Glargine (Lantus Per Unit Charge) 6 units SQ BID [facility] Stop: 12/29/21 20:59 Last Admin: 11/29/21 20:45 Dose: 6 units Documented By: SHANI Co-signed By: FROILAN Levothyroxine Sodium (Levothyroxine Sodium 100 Mcg Tablet) 100 mcg PO QAM [facility] Stop: 12/29/21 09:59 Last Admin: 11/29/21 14:31 Dose: 100 mcg Documented By: REGINA Metoprolol Succinate (Metoprolol Succ 50mg Ext Rel Tab) 100 mg PO QPM [facility] Stop: 12/29/21 20:59 Last Admin: 11/29/21 20:45 Dose: 100 mg Documented By: SHANI Rosuvastatin Calcium (Rosuvastatin Calcium 5 Mg Tab) 5 mg PO QPM JESSE Stop: 12/29/21 20:59 Last Admin: 11/29/21 20:44 Dose: 5 mg Documented By: SHANI Tamsulosin HCl (Tamsulosin Hcl 0.4 Mg Cap) 0.4 mg PO BID [facility] Stop: 12/29/21 09:51 Last Admin: 11/29/21 20:44 Dose: 0.4 mg Documented By: Admin: 11/29/21 14:31 Dose: 0.4 mg Documented By: REGINA Discontinued Medications Fentanyl Citrate (Fentanyl Citrate 100 Mcg/2 Ml Vial) 50 mcg IV Q15M PRN PRN Reason: Pain Stop: 12/13/21 04:49 Last Admin: 11/29/21 04:55 Dose: 50 mcg Documented By: KADE Hydromorphone HCl (Hydromorphone Inj 0.5 Mg/0.5 Ml Syr) Confirm Administered Dose 0.5 mg .ROUTE .STK-MED ONE Stop: 11/29/21 07:44 Last Admin: 11/29/21 07:46 Dose: 0.1 mg Documented By: REGINA Sodium Chloride (Nss 1000ml) 1,000 mls @ 125 mls/hr IV .Q8H [facility]ESSE Stop: 12/29/21 06:44 Last Admin: 11/29/21 12:22 Dose: Not Given Documented By: REGINA Ceftriaxone Sodium (Rocephin) 1,000 mg in 50 mls @ 100 mls/hr IV NOW STA Stop: 11/29/21 07:35 Last Infusion: 11/29/21 09:55 Dose: 0 mls/hr Documented By: Admin: 11/29/21 09:19 Dose: 100 mls/hr Documented By: REGINA Sodium Chloride (Nss 1000ml) 1,000 mls @ 125 mls/hr IV .Q8H JESSE Stop: 11/29/21 20:29 Last Infusion: 11/29/21 22:35 Dose: 0 mls/hr Documented By: Admin: 11/29/21 14:32 Dose: 125 mls/hr Documented By: REGINA Lidocaine HCl (Lidocaine 2% Jelly 5 Ml Tube) 5 ml EXT NOW ONE Stop: 11/29/21 04:03 Last Admin: 11/29/21 04:18 Dose: 5 ml Documented By: KADE Critical Care Time Critical Care Time: Yes Total Critical Care Time: 38 Critical care of 38 min performed to assess and manage high likelihood of life- threatening anemia, involving labs and imaging performed with assessment to evaluate anemia and hematuria diagnosis with frequent reassessment. This time includes bedside time, treatment discussions with patient/family/consultants, documentation time and excludes procedure time. Medical Decision Making Differential Diagnosis Urinary retention, UTI, ALESSANDRA, bladder cancer, prostatitis, trauma, as well as others were considered Medical Records Attestation: I reviewed the patient's medical records. Home Medications Current Medication List: was personally reviewed by me Laboratory Data Attestation: I reviewed the patient's lab results. Result diagrams: 11/29/21 10:55 11/29/21 02:06 Lab Results 11/29/21 11/29/21 11/29/21 Range/Units 02:06 02:06 02:50 WBC 6.93 (4.8-10.8) K/ul RBC 2.29 L (4.63-6.08) M/uL Hgb 7.0 L (14.0-18.0) g/dl Hct 22.4 L (40.1-51.0) % MCV 97.8 (80.0-100.0) fL MCH 30.6 (25.0-34.0) pg MCHC 31.3 L (32.0-36.0) g/dL RDW Std Deviation 60.6 H (36.4-46.3) fL RDW Coeff of Josie 17.4 H (11.5-14.5) % Plt Count 198 (130-400) K/uL MPV 10.9 (9.4-12.4) fL Immature Gran % (Auto) 1.2 % Neut % (Auto) 75.4 % Lymph % (Auto) 8.8 % Sharkey % (Auto) 11.0 % Eos % (Auto) 3.2 % Baso % (Auto) 0.4 % Neut # (Auto) 5.23 (1.4-6.5) K/uL Lymph # (Auto) 0.61 L (1.2-3.4) K/uL Sharkey # (Auto) 0.76 (0.24-0.82) K/uL Eos # (Auto) 0.22 (0-0.50) K/uL Baso # (Auto) 0.03 (0-0.2) K/uL Immature Gran # (Auto) 0.08 H (0.00-0.02) K/uL Absolute Nucleated RBC 0.03 H (0-0) K/uL Nucleated RBC % (auto) 0.4 % Polychromasia 1+ Basophilic Stippling 1+ Anisocytosis Present Tear Drop Cells 1+ Sodium 138 (136-145) mmol/L Potassium 4.0 (3.5-5.1) mmol/L Chloride 110 H (98-107) mmol/L Carbon Dioxide 16 L (21-32) mmol/L Anion Gap 12 H (3-11) BUN 52 H (6-23) mg/dl Creatinine 4.13 H (0.6-1.4) mg/dl Est Cr Clr Drug Dosing 13.1 ml/min Est GFR ( Amer) 15.4 ml/min Est GFR (Non-Af Amer) 13.3 ml/min BUN/Creatinine Ratio 12.6 (10-20) Glucose 204 H (70-99(Fasting)) mg/dl Calcium 7.8 L (8.5-10.1) mg/dl Total Bilirubin 0.3 (0.2-1.0) mg/dl AST 16 (13-39) U/L ALT 6 L (7-52) U/L Alkaline Phosphatase 76 (34-104) U/L Total Protein 6.3 (6.0-8.3) gm/dl Albumin 3.3 L (3.4-5.0) gm/dl Globulin 3.0 (2.5-4.0) gm/dl Albumin/Globulin Ratio 1.1 (0.9-2) Urine Color Red Urine Appearance Turbid A (Clear) Urine pH 7.0 (4.5-7.5) Ur Specific [place] 1.025 (1.000-1.030) Urine Protein 3+ H (Negative) Urine Glucose (UA) Trace H (Negative) Urine Ketones Negative (Negative) Urine Blood 3+ H (Negative) Urine Nitrite Negative (Negative) Urine Bilirubin Negative (Negative) Urine Urobilinogen Negative (Negative) Ur Leukocyte Esterase 1+ H (Negative) Urine RBC >30 H (0-4) /hpf Urine WBC >30 H (0-5) /hpf Ur Epithelial Cells 0-5 (0-5) /lpf Urine Bacteria Negative (Negative) SARS-CoV-2, RNA, NAAT (NEGATIVE) Blood Type Antibody Screen Crossmatch 11/29/21 11/29/21 Range/Units 04:04 05:57 WBC (4.8-10.8) K/ul RBC (4.63-6.08) M/uL Hgb (14.0-18.0) g/dl Hct (40.1-51.0) % MCV (80.0-100.0) fL MCH (25.0-34.0) pg MCHC (32.0-36.0) g/dL RDW Std Deviation (36.4-46.3) fL RDW Coeff of Josie (11.5-14.5) % Plt Count (130-400) K/uL MPV (9.4-12.4) fL Immature Gran % (Auto) % Neut % (Auto) % Lymph % (Auto) % Sharkey % (Auto) % Eos % (Auto) % Baso % (Auto) % Neut # (Auto) (1.4-6.5) K/uL Lymph # (Auto) (1.2-3.4) K/uL Sharkey # (Auto) (0.24-0.82) K/uL Eos # (Auto) (0-0.50) K/uL Baso # (Auto) (0-0.2) K/uL Immature Gran # (Auto) (0.00-0.02) K/uL Absolute Nucleated RBC (0-0) K/uL Nucleated RBC % (auto) % Polychromasia Basophilic Stippling Anisocytosis Tear Drop Cells Sodium (136-145) mmol/L Potassium (3.5-5.1) mmol/L Chloride (98-107) mmol/L Carbon Dioxide (21-32) mmol/L Anion Gap (3-11) BUN (6-23) mg/dl Creatinine (0.6-1.4) mg/dl Est Cr Clr Drug Dosing ml/min Est GFR ( Amer) ml/min Est GFR (Non-Af Amer) ml/min BUN/Creatinine Ratio (10-20) Glucose (70-99(Fasting)) mg/dl Calcium (8.5-10.1) mg/dl Total Bilirubin (0.2-1.0) mg/dl AST (13-39) U/L ALT (7-52) U/L Alkaline Phosphatase (34-104) U/L Total Protein (6.0-8.3) gm/dl Albumin (3.4-5.0) gm/dl Globulin (2.5-4.0) gm/dl Albumin/Globulin Ratio (0.9-2) Urine Color Urine Appearance (Clear) Urine pH (4.5-7.5) Ur Specific [place] (1.000-1.030) Urine Protein (Negative) Urine Glucose (UA) (Negative) Urine Ketones (Negative) Urine Blood (Negative) Urine Nitrite (Negative) Urine Bilirubin (Negative) Urine Urobilinogen (Negative) Ur Leukocyte Esterase (Negative) Urine RBC (0-4) /hpf Urine WBC (0-5) /hpf Ur Epithelial Cells (0-5) /lpf Urine Bacteria (Negative) SARS-CoV-2, RNA, NAAT NEGATIVE (NEGATIVE) Blood Type O Positive Antibody Screen NEGATIVE Crossmatch See Detail MDM Narrative An order was placed for continuous cardiac monitoring. The monitor shows a rate of 72__ with _normal sinus_ rhythm. This is a 76-year-old male who presents due to concern for inability to void. Patient with history of chronic kidney disease, recent intermittent hematuria, and indwelling percutaneous nephrostomy tube. Patient was afebrile and hemodynamically stable on arrival. No evidence of acute urinary retention on bladder scan. Patient did uncap his PERC nephrostomy tube and did have 200 mL of drainage from that which did relieve his initial symptoms. A three-way catheter was placed and irrigation begun with removal of several clots. Patient also found to have significant anemia. While he does have a history of anemia this was worse compared to prior and due to concern for ongoing blood loss, I did discuss with him transfusion of a unit. Patient was in agreement and signed consent form. Case discussed with hospitalist for additional evaluation and management. Urology also consulted, and additionally advised empiric antibiotics as a precaution. Patient remained hemodynamically stable in the emergency room. Renal function stable compared to prior. Blood transfusion started while patient still in the emergency room. Impression & Plan Hematuria, Anemia, Unable to void, CKD (chronic kidney disease) Discharge Plan Visit Data Chief Complaint: Hematuria Stated Complaint: BLOOD IN URINE ED Provider: Marifer Ocasio Discharge Problem: Hematuria, Anemia, Unable to void, CKD (chronic kidney disease) Patient Disposition: Admitted As Inpatient Discharge Instructions Interventions: ED Discharge Assessment Last Done: 11/29/21 15:54
--- NOTE | 2021-11-29 05:34 | History & Physical Report ---
Date of Service November 29, 2021 Assessment & Plan (1) Hematuria: Plan: 76 year old male w/ bladder cancer w/ lung mets, BPH, CAD, HTN, HLD, DM2, GI bleeding ([facility] admission 11/16/21-11/19/21), and CKD4 who presents w/ hematuria and obstructive urinary symptoms. - continue prn manual irrigation - ortiz inserted by ED - urine culture pending. no systemic symptoms of infection such as fever/chills - consult urology - NPO - pain control w/ prn dilaudid 0.1mg IV q6h prn for severe pain. d/c'd fentanyl IV (2) Anemia: Plan: transfuse 1u now for Hb of 7.0. likely 2/2 hematuria which may be 2/2 bladder cancer - recent [facility] admission for GI bleeding, though less likely etiology of current anemia (3) Chronic kidney disease, stage IV (severe): Plan: Avoid nephrotoxic agents. Renally dose meds. (4) Diabetes mellitus, type 2: Plan: monitor bsgs for now. weekly dulaglutide injections as outpatient (5) 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: Plan: follows oncology as outpatient (6) Hypothyroidism: Plan: - continue home levothyroxine (7) Hyperlipidemia: Plan: - continue home statin (8) History of stroke without residual deficits: Plan: noted (9) CAD (coronary atherosclerotic disease): Plan: - continue home statin (10) Benign essential hypertension: Plan: - continue home regimen (11) Acid reflux: Plan: - continue home regimen Plan Diet, fluids:NPO, other dialysis renal diet when diet resumed. no iv fluids. ppx: SCDs. Hold chemoppx in setting of hematuria and significant anemia code: full dispo: med surg History of Present Illness Chief Complaint: hematuria Primary Care Provider: Hilda Berry MD 76 year old male w/ bladder cancer w/ lung mets, BPH, CAD, HTN, HLD, DM2, GI bleeding ([facility] admission 11/16/21-11/19/21), and CKD4 who presents w/ hematuria and obstructive urinary symptoms. He has had intermittent gross hematuria x 2 days. During 11/28/21, he passed some clots and has been unable to urinate. Denies illness symptoms like fever/chills. No bloody or black stool. Denies anemia symptoms other than slight lightheadedness. Last meds last PM. + dysuria, new. He uncapped his nephrostomy tube site and attached to bag w/ some relief after 200mL drainage. ED course: pain control w/ Fentanyl IV. Ortiz insertion. VSS. Wbc 6.93. Hb 7.0, has been 7s-8s in past month. AG 12. Cr 4.13, at baseline. UA turbid >30 wbc. urine culture pending. Allergies Allergy/AdvReac Type Severity Reaction Status Date / Time Iodinated Contrast Media AdvReac Intermediate Hypertensio Verified 11/29/21 02:32 n atorvastatin [From Lipitor] AdvReac Mild muscle Verified 11/29/21 02:32 aches Home Medications Medication Instructions Recorded Confirmed Type dulaglutide 0.75 mg/0.5 mL 0.75 mg (0.5 mL) subcut WEEKLY #2 09/19/19 11/29/21 Rx subcutaneous pen injector mL (Trulicity) albuterol sulfate 90 mcg/actuation 2 puff inhalation QID PRN 05/22/20 11/29/21 Rx aerosol inhaler (Ventolin HFA) shortness of breath or wheezing #18 grams calcitriol 0.25 mcg capsule 0.25 mcg PO QPM 07/17/21 11/29/21 History metoprolol succinate 100 mg 100 mg PO QPM #90 tabs 07/30/21 11/29/21 Rx tablet,extended release 24 hr levothyroxine 100 mcg tablet 100 mcg PO QAM #90 tabs 10/12/21 11/29/21 Rx (Synthroid) cetirizine 10 mg capsule 10 mg PO QAM 11/16/21 11/29/21 History cinacalcet 30 mg tablet 30 mg PO 3XWK 11/16/21 11/29/21 History fluticasone propionate 50 2 spray intranasal DAILY PRN 11/16/21 11/29/21 History mcg/actuation nasal Dyspnea spray,suspension lactobacillus combination no.4 3 3,000 mmu cells PO QAM 11/16/21 11/29/21 History billion cell capsule (Probiotic) rosuvastatin 5 mg tablet 5 mg PO QPM 11/16/21 11/29/21 History pantoprazole 40 mg tablet,delayed 40 mg PO BID #60 tabs 11/19/21 11/29/21 Rx release (Protonix) allopurinol 300 mg tablet 300 mg PO QAM 11/29/21 11/29/21 History ferrous sulfate 325 mg (65 mg 325 mg PO 3XWK 11/29/21 11/29/21 History iron) tablet oxybutynin chloride 5 mg 5 mg PO QAM 11/29/21 11/29/21 History tablet,extended release 24 hr tamsulosin 0.4 mg capsule 0.4 mg PO BID 11/29/21 11/29/21 History Past Med/Surg History Medical History Acid reflux Acute duodenal ulcer with hemorrhage Adenomatous polyp of colon Anemia Atrial fibrillation with rapid ventricular response Benign essential hypertension Benign prostatic hyperplasia 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 Blood loss anemia CAD (coronary atherosclerotic disease) Chronic kidney disease STAGE IV Chronic obstructive pulmonary disease Diabetes mellitus, type 2 Diarrhea Hearing loss History of blood transfusion 01/2021 [facility] History of stroke without residual deficits OCCURRED DURING AAA REPAIR [facility] [place] 5-6 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-NO ISSUES SINCE Hyperlipidemia Hypothyroidism Past myocardial infarction Port-A-Cath in place Secondary hyperparathyroidism Subclavian artery aneurysm Vocal fold paralysis, left Surgical History H/O arthroscopy of knee H/O transurethral destruction of bladder lesion 08/17/2019 History of biopsy of bladder History of cardiac cath History of carpal tunnel release RIGHT History of cataract surgery BILATERAL History of colonoscopy History of cystoscopy 01/19/2020 History of esophagogastroduodenoscopy (EGD) History of lymph node biopsy Nephrostomy status R PCN placed by IR 10/23/2021 S/P AAA (abdominal aortic aneurysm) repair Status post biopsy of kidney Family History Grandfather , in his eighties No problems noted. Grandmother , young cause unknown No problems noted. Grandfather , in his eighties No problems noted. Grandmother , did have breast cancer but in her eighties of unknown cause No problems noted. Father , He in his sixties had had three strokes and high blood pressure He had had a kidney removed perhaps from cancer Stroke Mother , in her mid seventies complications from smoking No problems noted. Daughter Age: 50 No problems noted. Daughter Age: 47 No problems noted. Daughter Age: 42 No problems noted. Brother , at age 7 of a stroke Stroke Grandmother (Maternal) Breast cancer Other No family history of adverse response to anesthesia No family history of bleeding disorder Denies family history of Ovarian cancer Prostate cancer Myocardial infarction Colorectal cancer Social History Smoking Status: Former smoker Tobacco Type: Cigarettes Age Started Using Tobacco: 10; packs per day: 0.5; Cigarettes Per Day: 10; Second Hand Exposure: No; Hx Alcohol Use: No Hx Substance Use: No Preferred Language: Belgian Communication Ability: Effective Visual Impairment: Partially Limited Hearing Ability: Use of Hearing Aid Equip Tech Required: No Beliefs That Will Affect Care: None marital status: Current Living Situation: Alone current occupational status: retired How many Children do You have: 3 Feels Safe at Home: Yes Childhood Exposure to Second-Hand Smoke: Yes (Both parents smoked ) Diet Comment: Diabetic diet caffeine: Yes (Coffee tea) during the past year weight has: remained stable Dental Care, Regularly: No Physical Activity Frequency: Does not Exercise Seatbelt Use: always Sunscreen Use: No Do you think of yourself as: straight/heterosexual Assistive Devices: None Review of Systems Review of Systems: All systems reviewed & are unremarkable except as noted in HPI & below Denies confusion. Physical Exam Physical Exam: General: Grossly A&O. NAD. Cooperative. HEENT: Atraumatic, normocephalic. EOMI Pulm: CTAB. Mildly diminished at bases. Mild wheezes. No significant crackles. No accessory muscle use. Cardiac: RRR, -mrg. Radial pulses intact and symmetrical. 1 to 2+ pretibial ble. Abdominal: Nontender, nondistended, soft. Integ. Mild abrasions at bilat shins. Msk: Moving all extrem. Results & Data Results & Data ([facility]) Vital Signs (Past 12 Hours) Vital Signs Temp Pulse Resp BP Pulse Ox O2 Del Method 11/29/21 00:32 36.3 C L 83 16 114/67 98 Room Air Laboratory Results Cardiac Enzymes 11/29/21 Range/Units 02:06 AST 16 (13-39) U/L CBC 11/29/21 Range/Units 02:50 WBC 6.93 (4.8-10.8) K/ul RBC 2.29 L (4.63-6.08) M/uL Hgb 7.0 L (14.0-18.0) g/dl Hct 22.4 L (40.1-51.0) % Plt Count 198 (130-400) K/uL Neut # (Auto) 5.23 (1.4-6.5) K/uL Lymph # (Auto) 0.61 L (1.2-3.4) K/uL [place] # (Auto) 0.76 (0.24-0.82) K/uL Eos # (Auto) 0.22 (0-0.50) K/uL Baso # (Auto) 0.03 (0-0.2) K/uL Comprehensive Metabolic Panel 11/29/21 Range/Units 02:06 Sodium 138 (136-145) mmol/L Potassium 4.0 (3.5-5.1) mmol/L Chloride 110 H (98-107) mmol/L Carbon Dioxide 16 L (21-32) mmol/L BUN 52 H (6-23) mg/dl Creatinine 4.13 H (0.6-1.4) mg/dl Glucose 204 H (70-99(Fasting)) mg/dl Calcium 7.8 L (8.5-10.1) mg/dl AST 16 (13-39) U/L ALT 6 L (7-52) U/L Alkaline Phosphatase 76 (34-104) U/L Total Protein 6.3 (6.0-8.3) gm/dl Albumin 3.3 L (3.4-5.0) gm/dl Intake and Output 11/28/21 11/28/21 11/29/21 14:59 22:59 06:59 Other: Weight 70.2 kg Weight Measurement Method Chair Scale Patient Weight 11/29/21 06:59 Weight 70.2 kg Code Status & VTE Plan Code Status full VTE Prophylaxis Plan VTE Prophylaxis will be ordered: Yes Supervising Physician Co-Signing Physician Notes Attending addendum: I have physically seen this patient, have supervised the medical residents activities, and agree with the H&P unless as otherwise noted. Assessment and Plan: Gross hematuria- Ortiz placed in ED Continue manual irrigation as needed Follow urine culture sensitivities Empiric IV antibiotics Pain control with Dilaudid as noted Urology consulted Anemia- Hemoglobin 7.0, unit lower than his baseline Transfuse 1 PRBCs now Repeat laboratories in a.m. CKD stage IV- Gentle rehydration Avoiding nephrotoxic agents Diabetes mellitus- Hold weekly dulaglutide Placed on Accu-Cheks before meals and at bedtime with NovoLog coverage per scale Metastatic bladder cancer to lung- Following with oncology Remaining orders and notations as noted Resident Activity Tracking Resident Involvement: Resident Care Provided Care Provided: Adult Hospital Medicine (1) Anemia Anemia type: unspecified type Qualified Code(s): D64.9 - Anemia, unspecified (2) Hyperlipidemia Hyperlipidemia type: mixed hyperlipidemia Qualified Code(s): E78.2 - Mixed hyperlipidemia (3) Hypothyroidism Hypothyroidism type: acquired Qualified Code(s): E03.9 - Hypothyroidism, unspecified
[2021-11-29] MEDS ORDERED: SODIUM CHLORIDE 0.9% 1000ML 1,000 ML IV SCH ×3 (06:45→22:15)
[2021-11-29] MEDS ORDERED: cefTRIAXone SODIUM 1,000 MG/50 ML BAG IV STA (07:06)
[2021-11-29] MEDS ORDERED: HYDROmorphone INJ 0.5 MG/0.5 ML SYR ONE (07:43)
--- NOTE | 2021-11-29 10:19 | Hospitalist Progress Note ---
Date of Service November 29, 2021 Assessment & Plan (1) Hematuria: Plan: 76 year old male w/ bladder cancer w/ lung mets, BPH, CAD, HTN, HLD, DM2, GI bleeding ([facility] admission 11/16/21-11/19/21), and CKD4 who presents w/ hematuria and obstructive urinary symptoms. - UA- +blood, leukocyte esterase, 30+ WBCs, 30+ RBCs - Ceftriaxone x1 dose given in ED - Rosa catheter in place, draining blood-tinged urine - UCx pending - Urology consulted- recommend continuing IVF, antibiotic therapy - Suspect symptoms are secondary to active bladder cancer in background of previous radiation cystitis - Pt currently hemodynamically stable without any systemic symptoms - Continue ceftriaxone, NSS 1000 ml x1 bag (2) Anemia: Plan: -Hgb 7.0 on admission, most likely due to recent hematuria -S/p 1u pRBC transfusion in ED, Hgb 7.7 after -Trend CBC (3) Chronic kidney disease, stage IV (severe): Plan: -Cr 4.13 on admission, baseline appears 3-4 -Avoid nephrotoxic agents. Renally dose meds. (4) Diabetes mellitus, type 2: Plan: -Home regimen- weekly dulaglutide injections -MARY ALICE Do (5) 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 Hold chemoprophylaxis in setting of hematuria and significant anemia code: full dispo: medical/surgical Admission and Anticipated Discharge Date Admission Date: November 29, 2021 Supervising Physician Co-Signing Physician Notes I personally examined the patient and verified all stanton points of history and exam, discussed case, and agree with decision making with Dr Austin. Seen in follow-up from early a.m. admission Still with hematuria, but pain better. Otherwise as above, appreciate urology input. Subjective No acute events overnight. Pt evaluated while receiving blood transfusion. He denies any acute complaints aside from ongoing hematuria and some discomfort due to the catheter. No pain or current dysuria, though he did have painful burning urination less than 2 days prior. No other acute complaints. Review of Systems Review of Systems: All systems reviewed & are unremarkable except as noted in HPI & below Physical Exam Physical Exam: General: Grossly A&O. NAD. Cooperative. HEENT: Atraumatic, normocephalic. EOMI, moist mucous membranes Pulm: CTAB. Mildly diminished at bases, mild expiratory wheezes. No significant crackles. No accessory muscle use. Cardiac: RRR, normal S1 and S2, no murmurs noted Abdominal: Soft, nondistended, +suprapubic tenderness : Rosa draining urine + blood, R nephrostomy tube draining urine Results & Data Results & Data ([facility]) Vital Signs (Past 12 Hours) Vital Signs Temp Pulse Pulse Resp BP BP Pulse Ox 11/29/21 09:50 105 H 17 111/74 98 11/29/21 09:19 62 17 168/79 H 98 11/29/21 07:57 104 H 17 115/76 97 11/29/21 07:42 36.8 C 69 17 133/82 97 11/29/21 07:12 36.8 C 69 17 133/82 99 11/29/21 06:57 36.8 C 69 16 133/68 99 11/29/21 05:56 69 16 155/76 H 97 11/29/21 06:41 36.8 C 71 16 133/67 98 11/29/21 00:32 36.3 C L 83 16 114/67 98 O2 Del Method 11/29/21 09:50 Room Air 11/29/21 09:19 Room Air 11/29/21 07:57 Room Air 11/29/21 07:42 11/29/21 07:12 11/29/21 06:57 11/29/21 05:56 Room Air 11/29/21 06:41 11/29/21 00:32 Room Air Resident Activity Tracking Resident Involvement: Resident Care Provided Care Provided: Adult Hospital Medicine (1) Anemia Anemia type: unspecified type Qualified Code(s): D64.9 - Anemia, unspecified (2) Hypothyroidism Hypothyroidism type: acquired Qualified Code(s): E03.9 - Hypothyroidism, unspecified
[2021-11-29 11:15] LABS: Hemoglobin 7.7 g/dl (14.0-18.0); Mean Corpuscular Hgb Conc 32.1 g/dL (32.0-36.0); Mean Corpuscular Volume 93.4 fL (80.0-100.0); Mean Platelet Volume 10.9 fL (9.4-12.4); Nucleated RBC # (auto) 0.03 K/uL (0-0); Nucleated RBC % (auto) 0.5 %; Platelet Count 183 K/uL (130-400); RDW Coefficient of Variation 18.8 % (11.5-14.5); RDW Standard Deviation 63.4 fL (36.4-46.3); Red Blood Count 2.57 M/uL (4.63-6.08); White Blood Count 5.73 K/ul (4.8-10.8)
--- NOTE | 2021-11-29 11:27 | Urology Consultation ---
Date of Consultation November 29, 2021 Assessment & Plan (1) Hematuria: (2) UTI (urinary tract infection): (3) Dysuria: (4) Hydronephrosis: (5) Blood loss anemia: (6) Radiation cystitis: (7) Past myocardial infarction: (8) S/P AAA (abdominal aortic aneurysm) repair: (9) History of stroke without residual deficits: (10) Malignant neoplasm of lateral wall of bladder: Plan Patient of Dr. Awan. History [place] [facility] [place]. Previously had obstruction and hydronephrosis. Has neph Tube in place. Was clamped and draining to bladder with development of GH. History of significant bleeding and blood loss from Radiation Cystitis. Developed clot retention. Unable to void. Neph Tube was unclamped by family and relieved some of issue. Draining significant from Neph Tube at this time. Still significant urinary issues. Trouble voiding. Had catheter placed and irrigated. Imaging was reviewed and interpreted by myself. Significant issue with likely exacerbation of known issue.s obstruction. Neph tube in good position. Labs monitoring. Significant CKD with mild ALESSANDRA. Cr. typically over 4. Hydration. Improving with symptom control. Draining well with catheter in place after irrigation. Plan for supportive care. Monitoring of labs. Will need to consider options with Neph Tube. will need supportive care and abx for now. Patient's complex medical and surgical history is reviewed and summarized above. All imaging was reviewed interpreted by myself. Lab work was reviewed and assessed. Patient's creatinine has been in better level than typical. We will plan to continue to monitor and plan for continued supportive care History of Present Illness Attending Physician: Arun Cobb MD History of Present Illness Consult for urinary issues with hematuria. Patient has mild to moderate discomfort in pelvis and groin going to back and side in waves. Is dealing with acute illness. Has been deconditioned from this. Has decreased mobility significantly with acute issues. Denies significant previous episodes of hematuria. Is still able to void. Has had some minor urinary issues in the past. No severe nausea or vomiting. Currently no fevers. No significant family history of malignancy. Very well-known patient to the urology service with multiple issues in the past. Patient has had significant issues with gross hematuria. Has a history of metastatic UC C. Had radiation. Has been following with Dr. Awan for a number of years. Allergies Allergy/AdvReac Type Severity Reaction Status Date / Time Iodinated Contrast Media AdvReac Intermediate Hypertensio Verified 11/29/21 02:32 n atorvastatin [From Lipitor] AdvReac Mild muscle Verified 11/29/21 02:32 aches Home Medications Medication Instructions Recorded Confirmed Type dulaglutide 0.75 mg/0.5 mL 0.75 mg (0.5 mL) subcut WEEKLY #2 09/19/19 11/29/21 Rx subcutaneous pen injector mL (Trulicity) albuterol sulfate 90 mcg/actuation 2 puff inhalation QID PRN 05/22/20 11/29/21 Rx aerosol inhaler (Ventolin HFA) shortness of breath or wheezing #18 grams calcitriol 0.25 mcg capsule 0.25 mcg PO QPM 07/17/21 11/29/21 History metoprolol succinate 100 mg 100 mg PO QPM #90 tabs 07/30/21 11/29/21 Rx tablet,extended release 24 hr levothyroxine 100 mcg tablet 100 mcg PO QAM #90 tabs 10/12/21 11/29/21 Rx (Synthroid) cetirizine 10 mg capsule 10 mg PO QAM 11/16/21 11/29/21 History cinacalcet 30 mg tablet 30 mg PO 3XWK 11/16/21 11/29/21 History fluticasone propionate 50 2 spray intranasal DAILY PRN 11/16/21 11/29/21 History mcg/actuation nasal Dyspnea spray,suspension lactobacillus combination no.4 3 3,000 mmu cells PO QAM 11/16/21 11/29/21 History billion cell capsule (Probiotic) rosuvastatin 5 mg tablet 5 mg PO QPM 11/16/21 11/29/21 History pantoprazole 40 mg tablet,delayed 40 mg PO BID #60 tabs 11/19/21 11/29/21 Rx release (Protonix) allopurinol 300 mg tablet 300 mg PO QAM 11/29/21 11/29/21 History ferrous sulfate 325 mg (65 mg 325 mg PO 3XWK 11/29/21 11/29/21 History iron) tablet oxybutynin chloride 5 mg 5 mg PO QAM 11/29/21 11/29/21 History tablet,extended release 24 hr tamsulosin 0.4 mg capsule 0.4 mg PO BID 11/29/21 11/29/21 History Patient History Medical History Acid reflux Acute duodenal ulcer with hemorrhage Adenomatous polyp of colon Anemia Atrial fibrillation with rapid ventricular response Benign essential hypertension Benign prostatic hyperplasia 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 Blood loss anemia CAD (coronary atherosclerotic disease) Chronic kidney disease STAGE IV Chronic obstructive pulmonary disease Diabetes mellitus, type 2 Diarrhea Hearing loss History of blood transfusion 01/2021 [facility] History of stroke without residual deficits OCCURRED DURING AAA REPAIR [facility] [place] 5-6 YRS 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-NO ISSUES SINCE Hyperlipidemia Hypothyroidism Past myocardial infarction Port-A-Cath in place Secondary hyperparathyroidism Subclavian artery aneurysm Vocal fold paralysis, left Surgical History H/O arthroscopy of knee H/O transurethral destruction of bladder lesion 08/17/2019 History of biopsy of bladder History of cardiac cath History of carpal tunnel release RIGHT History of cataract surgery BILATERAL History of colonoscopy History of cystoscopy 01/19/2020 History of esophagogastroduodenoscopy (EGD) History of lymph node biopsy Nephrostomy status R PCN placed by IR 10/23/2021 S/P AAA (abdominal aortic aneurysm) repair Status post biopsy of kidney Family History Grandfather , in his eighties No problems noted. Grandmother , young cause unknown No problems noted. Grandfather , in his eighties No problems noted. Grandmother , did have breast cancer but in her eighties of unknown cause No problems noted. Father , He in his sixties had had three strokes and high blood pressure He had had a kidney removed perhaps from cancer Stroke Mother , in her mid seventies complications from smoking No problems noted. Daughter Age: 50 No problems noted. Daughter Age: 47 No problems noted. Daughter Age: 42 No problems noted. Brother , at age 7 of a stroke Stroke Grandmother (Maternal) Breast cancer Other No family history of adverse response to anesthesia No family history of bleeding disorder Denies family history of Ovarian cancer Prostate cancer Myocardial infarction Colorectal cancer Social History Smoking Status: Current every day smoker Tobacco Type: Cigarettes Age Started Using Tobacco: 10; packs per day: 0.5; Cigarettes Per Day: 10; Second Hand Exposure: No; Hx Alcohol Use: No Hx Substance Use: No Preferred Language: Luxembourgish Communication Ability: Effective Visual Impairment: Partially Limited Hearing Ability: Use of Hearing Aid Casino Cashier Required: No Beliefs That Will Affect Care: None marital status: Current Living Situation: Alone current occupational status: retired How many Children do You have: 3 Feels Safe at Home: Yes Childhood Exposure to Second-Hand Smoke: Yes (Both parents smoked ) Diet Comment: Diabetic diet caffeine: Yes (Coffee tea) during the past year weight has: remained stable Dental Care, Regularly: No Physical Activity Frequency: Does not Exercise Seatbelt Use: always Sunscreen Use: No Do you think of yourself as: straight/heterosexual Assistive Devices: None Review of Systems Review of Systems: All systems reviewed & are unremarkable except as noted in HPI & below Physical Exam Physical Exam: General: Alert and oriented x 3 in no acute distress. Advanced age. HEENT: Normocephalic Atraumatic. Inspection normal. Cranial Nerves 2-12 Grossly intact. Nares are clear. Neck is supple. Normal inspection of face. Normal inspection of neck. Neurologic: No deficits on inspection. Baseline for motor function and sensory. Psychologic: Normal affect. Respiratory: Nonlabored. No use of accessory muscles. No tachypnea or dyspnea. Cardiovascular: No tachycardia Skin: [place] and Dry. No rashes or visible lesions. Extremities: Moving without issues. No motor deficits on inspection Lymphatics: No edema Abdomen: Soft Non-distended. Neph Tube in place. Drainging clear urine. No rebound or guarding. Results & Data ([facility]) Vital Signs (Past 12 Hours) Vital Signs Temp Pulse Pulse Resp BP BP Pulse Ox 11/29/21 10:29 65 17 169/80 H 98 11/29/21 09:50 105 H 17 111/74 98 11/29/21 09:19 62 17 168/79 H 98 11/29/21 07:57 104 H 17 115/76 97 11/29/21 07:42 36.8 C 69 17 133/82 97 11/29/21 07:12 36.8 C 69 17 133/82 99 11/29/21 06:57 36.8 C 69 16 133/68 99 08/07/22 05:56 69 16 155/76 H 97 11/29/21 06:41 36.8 C 71 16 133/67 98 11/29/21 00:32 36.3 C L 83 16 114/67 98 O2 Del Method 11/29/21 10:29 Room Air 11/29/21 09:50 Room Air 11/29/21 09:19 Room Air 11/29/21 07:57 Room Air 11/29/21 07:42 11/29/21 07:12 11/29/21 06:57 11/29/21 05:56 Room Air 11/29/21 06:41 11/29/21 00:32 Room Air PG Care Time/CCT Total # of Minutes Spent Total Time Spent with Patient: Total time spent is greater than 50% in coordination of care (as documented) at patient's floor/unit and/or counseling patient: Coding Level of Care Code 80586 Inpt Consult Level 5 Diagnoses Hematuria R31.9 UTI (urinary tract infection) N39.0 Dysuria R30.0 Hydronephrosis N13.30 Blood loss anemia D50.0 Radiation cystitis N30.40 Past myocardial infarction I25.2 S/P AAA (abdominal aortic aneurysm) repair Z98.890; Z86.79 History of stroke without residual deficits Z86.73 Malignant neoplasm of lateral wall of bladder C67.2
[2021-11-29] MEDS ORDERED: GLUCAGON FOR INJ 1 MG VIAL SQ PRN (12:26)
[2021-11-29] MEDS ORDERED: DEXTROSE 50% 50 ML SYRINGE IV PRN (12:26)
[2021-11-29] MEDS ORDERED: GLUCOSE 10 TAB/TUBE PO PRN (12:26)
[2021-11-29] MEDS ORDERED: GLUCOSE 40% GEL 15 GM TUBE PO PRN (12:26)
[2021-11-29] MEDS: HYDROmorphone INJ 0.5 MG/0.5 ML SYR IV PRN ×2 (14:30→23:03)
[2021-11-29] MEDS: LEVOTHYROXINE SODIUM 100 MCG TABLET PO SCH (14:31)
[2021-11-29] MEDS: TAMSULOSIN HCL 0.4 MG CAP PO SCH ×2 (14:31→20:44)
[2021-11-29] MEDS: INSULIN ASPART PER UNIT SC SCH ×2 (16:50→20:41)
--- NOTE | 2021-11-29 20:15 | Billing Data ---
Date of Service November 29, 2021 Coding Level of Care Code 81299 Initial Inpt Care Lvl 3
[2021-11-29] MEDS: ROSUVASTATIN CALCIUM 5 MG TAB PO SCH (20:44)
[2021-11-29] MEDS: LANTUS PER UNIT CHARGE SQ SCH (20:45)
[2021-11-29] MEDS: METOPROLOL SUCC 50MG EXT REL TAB PO SCH (20:45)
[2021-11-30 06:25] LABS: BUN Creatinine Ratio 12.2 (10-20); Calcium 7.2 mg/dl (8.5-10.1); Creatinine Clr Calc Pharmacy 14.1 ml/min; Est GFR (African American) 16.7 ml/min; Est GFR (Non-African American) 14.4 ml/min; Potassium 3.7 mmol/L (3.5-5.1)
[2021-11-30 06:27] LABS: Hematocrit (blood only) 21.2 % (40.1-51.0); Hemoglobin 6.8 g/dl (14.0-18.0); Mean Corpuscular Hgb Conc 32.1 g/dL (32.0-36.0); Mean Corpuscular Volume 93.4 fL (80.0-100.0); Mean Platelet Volume 11.1 fL (9.4-12.4); Nucleated RBC # (auto) 0.03 K/uL (0-0); Nucleated RBC % (auto) 0.5 %; Platelet Count 173 K/uL (130-400); RDW Coefficient of Variation 18.9 % (11.5-14.5); RDW Standard Deviation 63.8 fL (36.4-46.3); Red Blood Count 2.27 M/uL (4.63-6.08); White Blood Count 6.14 K/ul (4.8-10.8)
[2021-11-30] MEDS ORDERED: SODIUM CHLORIDE 0.9% 250 ML IV PRN (06:36)
[2021-11-30] MEDS ORDERED: POTASSIUM CHLORIDE CRTAB 20 MEQ TABCR PO STA (07:11)
--- NOTE | 2021-11-30 07:27 | Hospitalist Progress Note ---
Date of Service November 30, 2021 Assessment & Plan (1) Hematuria: Plan: 76 year old male w/ bladder cancer w/ lung mets, BPH, CAD, HTN, HLD, DM2, GI bleeding ([facility] admission 11/16/21-11/19/21), and CKD4 who presents w/ hematuria and obstructive urinary symptoms. - UA on admission- +blood, leukocyte esterase, 30+ WBCs, 30+ RBCs - Ceftriaxone x1 dose given in ED - Rosa catheter in place, draining blood-tinged urine- continue manual irrigation of clots - UCx preliminary negative, await final reports - Urology consulted -Recommend continuing IVF, antibiotic therapy - Suspect symptoms are secondary to active bladder cancer in background of previous radiation cystitis - Pt currently hemodynamically stable without any systemic symptoms - Continue ceftriaxone until UCx final negative (2) Anemia: Plan: -Hgb 7.0 on admission, most likely due to recent hematuria -S/p 1u pRBC transfusion in ED, Hgb 7.7 after -Hgb 7.7 to 6.8 today, 1u pRBC administered with Hgb improved to 8.1 -Trend CBC (3) Chronic kidney disease, stage IV (severe): Plan: -Cr 4.13 on admission, baseline appears 3-4 -Cr 3.9 today, at baseline -Trend BMP (4) Diabetes mellitus, type 2: Plan: -Home regimen- weekly dulaglutide injections -MARY ALICE Do (5) 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 Hold chemoprophylaxis in setting of hematuria and significant anemia code: full dispo: medical/surgical Admission and Anticipated Discharge Date Admission Date: November 29, 2021 Supervising Physician Co-Signing Physician Notes I also saw the patient and confirmed stanton portions of the history and physical examination. Agree with the impression and plan as noted in the resident documentation. Upon our mid afternoon exam, the patient was resting comfortably in bed with a friend at bedside. He had no new complaints. Exam 121/71, 63, 20, 36.7, 92% on room air Heart regular Respirations nonlabored Abdomen soft. Nontender. Data WBC 7.54, hemoglobin 8.1, platelet 173 BUN 47, creatinine 3.86 Assessment and Plan Gross hematuria secondary to bladder cancer with pulmonary metastatic disease Obstructive uropathy Urology consultation appreciated Continue ceftriaxone, urine culture pending Pain control with Dilaudid as noted Acute blood loss anemia Hemoglobin 7.0, unit lower than his baseline Status post a second unit of packed red blood cells this admission, current hemoglobin 8.1 Trend CBC Additional per resident documentation Subjective No acute events overnight Hgb noted earlier this AM to be 6.9, 1u pRBC ordered. Pt evaluated while receiving blood transfusion. He denies any acute complaints aside from ongoing hematuria and some moderate discomfort around catheter. Denies any abdominal pain or other urinary symptoms at present. Review of Systems Review of Systems: Per subjective Physical Exam Physical Exam: General: well-appearing, laying in bed, no acute distress HEENT: Atraumatic, normocephalic. EOMI, moist mucous membranes Pulm: CTAB. Mildly diminished at bases, mild expiratory wheezes, no crackles or increased work of breathing Cardiac: RRR, normal S1 and S2, no murmurs noted Abdominal: Soft, nondistended, nontender, no suprapubic tenderness : Rosa draining urine + blood, R nephrostomy tube draining urine Skin: no pallor or cyanosis of extremities Results & Data Results & Data ([facility]) Vital Signs (Past 12 Hours) Vital Signs Temp Pulse Pulse Resp BP BP Pulse Ox 11/30/21 07:14 36.8 C 70 18 141/67 H 95 11/30/21 04:39 67 11/30/21 04:39 11/30/21 02:57 36.8 C 67 18 158/78 H 96 11/29/21 20:39 36.7 C 70 18 163/79 H 97 O2 Del Method 11/30/21 07:14 11/30/21 04:39 11/30/21 04:39 Room Air 11/30/21 02:57 11/29/21 20:39 Room Air Resident Activity Tracking Resident Involvement: Resident Care Provided Care Provided: Adult Hospital Medicine (1) Anemia Anemia type: unspecified type Qualified Code(s): D64.9 - Anemia, unspecified (2) Hypothyroidism Hypothyroidism type: acquired Qualified Code(s): E03.9 - Hypothyroidism, unspecified
[2021-11-30] MEDS: LANTUS PER UNIT CHARGE SQ SCH ×2 (08:43→21:06)
[2021-11-30] MEDS: INSULIN ASPART PER UNIT SC SCH ×4 (08:43→21:06)
[2021-11-30] MEDS: cefTRIAXone SODIUM 1,000 MG in DEXTROSE 5% 50 ML IV SCH (08:43)
[2021-11-30] MEDS: LEVOTHYROXINE SODIUM 100 MCG TABLET PO SCH (08:44)
[2021-11-30] MEDS: TAMSULOSIN HCL 0.4 MG CAP PO SCH ×2 (08:44→21:03)
--- NOTE | 2021-11-30 11:05 | Urology Progress Note ---
Date of Service November 30, 2021 Assessment & Plan (1) Hematuria: Plan 76yo M with a hx of bladder ca w/lung mets and right neph tube admitted with gross hematuria and obstructive urinary symptoms. - Afebrile. - Labs reviewed - WBC 6.14, Creatinine down to 3.86 (previous 4.13), Hemoglobin 6.8 (receiving transfusion this AM). - Urine culture 11/29 prelim no growth. - Rosa catheter intact, draining w/hematuria. - Right neph tube intact, draining w/hematuria. Plan- - No acute urological intervention warranted at this time. - Continue Rosa catheter. Okay to gently hand irrigate prn clots, retention, suprapubic pain. - Maintain right nephrostomy tube. Okay to flush/aspirate prn. - Continue supportive care and antibiotic therapy, follow culture. - Continue to trend labs, transfuse as felt necessary per primary team. - Urology will follow. Admission and Anticipated Discharge Date Admission Date: November 29, 2021 Supervising Physician Co-Signing Physician Notes Discussed patient with TEENA. Agree with plan. Subjective Patient examined at bedside this AM. Awake, resting in bed on arrival. No acute distress. Currently receiving a blood transfusion. Rsoa catheter intact draining dark red urine. Right nephrostomy tube intact, draining dark red urine. Denies dysuria. Denies abdominal, flank, or suprapubic pain. No fevers or chills. Denies nausea or vomiting. Nursing irrigated Rosa catheter overnight due to pain/fullness. After removing clots from tubing, pt reported the pressure was better. Pt bladder scannedmultiple times by nursing with no more than 2 ml. Rosa catheter output overnight 850 mL. Right nephrostomy tube output overnight 100 mL Review of Systems Constitutional: as per Subjective / HPI Gastrointestinal: as per Subjective / HPI Genitourinary: + as per Subjective / HPI Physical Exam Constitutional: no acute distress Respiratory: no respiratory distress and no labored breathing Gastrointestinal (Abdomen): Percussion/Palpation: abdomen soft; abdomen nontender Neurologic: awake Psychiatric: Orientation: alert, oriented x 3 and cooperative Genitourinary: Rosa catheter intact, draining with hematuria. Right nephrostomy tube intact, draining with hematuria. Results & Data ([facility]) Vital Signs (Past 12 Hours) Vital Signs Temp Pulse Pulse Resp BP BP Pulse Ox 11/30/21 09:35 36.7 C 71 19 157/89 H 96 11/30/21 09:15 36.9 C 71 19 164/80 H 96 11/30/21 08:15 36.9 C 71 18 154/78 H 94 11/30/21 07:45 36.8 C 62 19 163/83 H 94 11/30/21 07:30 36.9 C 62 18 160/74 H 95 11/30/21 07:14 36.8 C 70 18 141/67 H 95 11/30/21 04:39 67 11/30/21 04:39 11/30/21 02:57 36.8 C 67 18 158/78 H 96 O2 Del Method 11/30/21 09:35 11/30/21 09:15 11/30/21 08:15 11/30/21 07:45 11/30/21 07:30 11/30/21 07:14 11/30/21 04:39 11/30/21 04:39 Room Air 11/30/21 02:57 PG Care Time/CCT Total # of Minutes Spent Total Time Spent with Patient: Total time spent is greater than 50% in coordination of care (as documented) at patient's floor/unit and/or counseling patient: Coding Level of Care Code 84383 Subseq Hosp Care Lvl 2 Diagnoses Hematuria R31.9
[2021-11-30 12:41] LABS: Basophils # (auto) 0.06 K/uL (0-0.2); Basophils % (auto) 0.8 %; Eosinophils % (auto) 2.7 %; Hematocrit (blood only) 25.5 % (40.1-51.0); Hemoglobin 8.1 g/dl (14.0-18.0); Immature Granulocytes # (auto) 0.04 K/uL (0.00-0.02); Immature Granulocytes % (auto) 0.5 %; Lymphocytes # (auto) 0.63 K/uL (1.2-3.4); Lymphocytes % (auto) 8.4 %; Mean Corpuscular Hemoglobin 28.7 pg (25.0-34.0); Mean Corpuscular Hgb Conc 31.8 g/dL (32.0-36.0); Mean Corpuscular Volume 90.4 fL (80.0-100.0); Mean Platelet Volume 10.9 fL (9.4-12.4); Monocytes # (auto) 0.69 K/uL (0.24-0.82); Monocytes % (auto) 9.2 %; Neutrophils # (auto) 5.92 K/uL (1.4-6.5); Neutrophils % (auto) 78.4 %; Nucleated RBC # (auto) 0.03 K/uL (0-0); Nucleated RBC % (auto) 0.4 %; Platelet Count 173 K/uL (130-400); RDW Coefficient of Variation 20.7 % (11.5-14.5); Red Blood Count 2.82 M/uL (4.63-6.08); White Blood Count 7.54 K/ul (4.8-10.8)
[2021-11-30] MEDS: HYDROmorphone INJ 0.5 MG/0.5 ML SYR IV PRN (13:08)
[2021-11-30 13:14] LABS: Anisocytosis Present; Ovalocytes 1+; Polychromasia 1+; Tear Drop Cells 1+
[2021-11-30] MEDS: ACETAMINOPHEN 500 MG TAB PO SCH ×2 (13:40→21:02)
[2021-11-30] MEDS: ROSUVASTATIN CALCIUM 5 MG TAB PO SCH (21:03)
[2021-11-30] MEDS: METOPROLOL SUCC 50MG EXT REL TAB PO SCH (21:03)
[2021-12-01] MEDS: ACETAMINOPHEN 500 MG TAB PO SCH ×3 (05:49→20:56)
--- NOTE | 2021-12-01 06:57 | Hospitalist Progress Note ---
Date of Service December 01, 2021 Assessment & Plan (1) Hematuria: Plan: 76 year old male w/ bladder cancer w/ lung mets, BPH, CAD, HTN, HLD, DM2, GI bleeding ([facility] admission 11/16/21-11/19/21), and CKD4 who presents w/ hematuria and obstructive urinary symptoms. - UA on admission- +blood, leukocyte esterase, 30+ WBCs, 30+ RBCs - Suspect symptoms are secondary to active bladder cancer in background of previous radiation cystitis - Rosa catheter in place, draining blood-tinged urine- continue manual irrigation of clots - UCx final negative, ceftriaxone completed 11/29-12/01 - Urology consulted -Recommend transfusion and overnight monitoring -If Hgb drops tomorrow, will obtain CTAP -May require surgical intervention pending CTAP results - Pt currently hemodynamically stable without any systemic symptoms (2) Anemia: Plan: -Hgb 7.0 on admission, most likely due to recent hematuria -S/p 1u pRBC transfusion in ED on 11/29, Hgb 7.7 after -Hgb 7.7 to 6.8, 1u pRBC administered with Hgb improved to 8.1 on 11/30 -Hgb 8.1 to 6.9 on 12/01, receiving 2u pRBC -Trend CBC (3) Chronic kidney disease, stage IV (severe): Plan: -Cr 4.13 on admission, baseline appears 3-4 -Cr 3.9 to 4.2 today, slightly above baseline -Trend BMP (4) Diabetes mellitus, type 2: Plan: -Home regimen- weekly dulaglutide injections -MARY ALICE Do (5) 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 Hold chemoprophylaxis in setting of hematuria and significant anemia code: full dispo: medical/surgical Admission and Anticipated Discharge Date Admission Date: November 29, 2021 Supervising Physician Co-Signing Physician Notes I also saw the patient and confirmed stanton portions of the history and physical examination. Agree with the impression and plan as noted in the resident documentation. I also discussed the case with the urology data virtualization consultant. Exam 157/81, 61, 18, 36.7, 96% on room air Heart regular Respirations nonlabored Abdomen soft. Nontender. Data Repeat hemoglobin 6.7 BUN 50, creatinine 4.19 Assessment and Plan Gross hematuria secondary to bladder cancer with pulmonary metastatic disease Obstructive uropathy Urology consultation appreciated Completes course of ceftriaxone today, urine culture negative Pain control with Dilaudid as noted Acute blood loss anemia Hemoglobin 6.7 today Transfused 2 units Trend CBC Additional per resident documentation Subjective No acute events overnight. Pt reports passing less clots in urine, notes he's been bleeding less. Denies any dypsnea, abdominal pain, chest pain or lightheadedness. No dysuria. Review of Systems Review of Systems: Per subjective Physical Exam Physical Exam: General: well-appearing, laying in bed, no acute distress HEENT: Atraumatic, normocephalic. EOMI, moist mucous membranes Pulm: CTAB. Mildly diminished at bases, mild expiratory wheezes, no crackles or increased work of breathing Cardiac: RRR, normal S1 and S2, no murmurs noted Abdominal: Soft, nondistended, nontender, no suprapubic tenderness : Rosa draining urine + blood, R nephrostomy tube draining blood/urine Skin: no pallor or cyanosis of extremities Results & Data Results & Data ([facility]) Vital Signs (Past 12 Hours) Vital Signs Temp Pulse Resp BP Pulse Ox O2 Del Method 12/01/21 06:31 36.5 C 60 18 139/76 96 Room Air 11/30/21 23:35 36.7 C 56 L 18 158/77 H 98 Room Air Resident Activity Tracking Resident Involvement: Resident Care Provided Care Provided: Adult Hospital Medicine (1) Anemia Anemia type: unspecified type Qualified Code(s): D64.9 - Anemia, unspecified (2) Hypothyroidism Hypothyroidism type: acquired Qualified Code(s): E03.9 - Hypothyroidism, unspecified
[2021-12-01] MEDS: INSULIN ASPART PER UNIT SC SCH ×4 (08:48→20:57)
[2021-12-01] MEDS: TAMSULOSIN HCL 0.4 MG CAP PO SCH ×2 (08:49→20:55)
[2021-12-01] MEDS: LEVOTHYROXINE SODIUM 100 MCG TABLET PO SCH (08:50)
[2021-12-01] MEDS: cefTRIAXone SODIUM 1,000 MG in DEXTROSE 5% 50 ML IV SCH (08:51)
[2021-12-01] MEDS: LANTUS PER UNIT CHARGE SQ SCH ×2 (09:01→20:57)
[2021-12-01 10:52] LABS: Hematocrit (blood only) 22.2 % (40.1-51.0); Hemoglobin 6.9 g/dl (14.0-18.0); Mean Corpuscular Hgb Conc 31.1 g/dL (32.0-36.0); Mean Corpuscular Volume 93.3 fL (80.0-100.0); Mean Platelet Volume 10.7 fL (9.4-12.4); Platelet Count 151 K/uL (130-400); RDW Coefficient of Variation 20.9 % (11.5-14.5); RDW Standard Deviation 69.6 fL (36.4-46.3); Red Blood Count 2.38 M/uL (4.63-6.08); White Blood Count 5.46 K/ul (4.8-10.8)
[2021-12-01 11:04] LABS: BUN Creatinine Ratio 11.9 (10-20); Calcium 7.9 mg/dl (8.5-10.1); Est GFR (African American) 15.1 ml/min; Est GFR (Non-African American) 13.1 ml/min; Potassium 4.2 mmol/L (3.5-5.1)
--- NOTE | 2021-12-01 11:36 | Urology Progress Note ---
Date of Service December 01, 2021 Assessment & Plan (1) Hematuria: Plan: Advanced bladder cancer status post radiation Refractory hematuria Right nephroureteral stent placement Indwelling Rosa catheter Unfortunate hemoglobin dropped again today and he likely requires repeat transfusion His creatinine has improved since placement of the nephrostomy tube, numbers have risen slightly today He has not been reimaged since his arrival for this hospitalization Plan: 1. Transfuse today 2. Observe overnight 3. If hemoglobin drops again tomorrow, CT abdomen pelvisNoncon 4. If remains unstable or has significant clot within the bladder I would consider surgical intervention on (cysto, fulg, clot evac) Admission and Anticipated Discharge Date Admission Date: November 29, 2021 Subjective Doing okay overall Does not appear to be particularly uncomfortable but reports that he is doing "terribly" Nephrostomy tube in place, draining bloody urine, Rosa catheter in place draining slightly clear but still bloody urine Asking about a definitive plan Physical Exam Physical Exam: Nephrostomy tube with dark blood, this was irrigated and flushed easily, after disconnecting the bag/tubing from the nephrostomy itself there is drainage of urine implying obstruction of the tubing. After irrigation does appear to be draining better Rosa with bloody urine in the bag but relatively light-colored urine within the tubing. Results & Data ([facility]) Vital Signs (Past 12 Hours) Vital Signs Temp Pulse Resp BP Pulse Ox O2 Del Method 12/01/21 06:31 36.5 C 60 18 139/76 96 Room Air 11/30/21 23:35 36.7 C 56 L 18 158/77 H 98 Room Air PG Care Time/CCT Total # of Minutes Spent Total Time Spent with Patient: Total time spent is greater than 50% in coordination of care (as documented) at patient's floor/unit and/or counseling patient: Coding Level of Care Code 43321 Subseq Hosp Care Lvl 3 Diagnoses Hematuria R31.9
[2021-12-01] MEDS ORDERED: SODIUM CHLORIDE 0.9% 250 ML IV PRN (11:40)
[2021-12-01 11:47] LABS: Hematocrit (blood only) 21.5 % (40.1-51.0); Hemoglobin 6.7 g/dl (14.0-18.0)
[2021-12-01 19:32] LABS: Hematocrit (blood only) 27.4 % (40.1-51.0)
[2021-12-01] MEDS: METOPROLOL SUCC 50MG EXT REL TAB PO SCH (20:54)
[2021-12-01] MEDS: ROSUVASTATIN CALCIUM 5 MG TAB PO SCH (20:55)
[2021-12-02] MEDS: ACETAMINOPHEN 500 MG TAB PO SCH ×3 (05:31→21:31)
[2021-12-02 06:46] LABS: Hematocrit (blood only) 28.6 % (40.1-51.0); Hemoglobin 9.2 g/dl (14.0-18.0); Mean Corpuscular Hemoglobin 29.8 pg (25.0-34.0); Mean Corpuscular Hgb Conc 32.2 g/dL (32.0-36.0); Mean Corpuscular Volume 92.6 fL (80.0-100.0); Platelet Count 141 K/uL (130-400); RDW Coefficient of Variation 18.6 % (11.5-14.5); RDW Standard Deviation 62.4 fL (36.4-46.3); Red Blood Count 3.09 M/uL (4.63-6.08); White Blood Count 5.75 K/ul (4.8-10.8)
[2021-12-02 07:08] LABS: BUN Creatinine Ratio 12.5 (10-20); Calcium 7.8 mg/dl (8.5-10.1); Creatinine Clr Calc Pharmacy 13.3 ml/min; Est GFR (African American) 15.6 ml/min; Est GFR (Non-African American) 13.4 ml/min; Potassium 4.1 mmol/L (3.5-5.1)
[2021-12-02] MEDS: INSULIN ASPART PER UNIT SC SCH ×4 (08:26→21:31)
[2021-12-02] MEDS: TAMSULOSIN HCL 0.4 MG CAP PO SCH ×2 (08:27→21:30)
[2021-12-02] MEDS: LEVOTHYROXINE SODIUM 100 MCG TABLET PO SCH (08:27)
[2021-12-02] MEDS: LANTUS PER UNIT CHARGE SQ SCH ×2 (08:27→21:32)
--- NOTE | 2021-12-02 08:38 | Urology Progress Note ---
Date of Service December 02, 2021 Assessment & Plan (1) Hematuria: (2) Radiation cystitis: (3) 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: Plan Advanced bladder cancer with radiation cystitis Refractory hematuria Several units of blood transfused over the past several days Plan for n.p.o. at midnight Cystoscopy, fulguration of bleeding vessels tomorrow I hope that the blood draining from the nephrostomy tube is siphoning from the bladder and not bleeding from the kidney itselftreatment of bleeding from the kidney is considerably more challenging Admission and Anticipated Discharge Date Admission Date: November 29, 2021 Subjective 2 units of blood transfused yesterday Appropriate rise in hemoglobin Creatinine remains relatively stable at 4 Subjectively doing okayreports some bladder spasms Continues to have bloody discharge from both his nephrostomy tube and his catheter Physical Exam Physical Exam: blood in urine from both catheter and nephrostomy Results & Data ([facility]) Vital Signs (Past 12 Hours) Vital Signs Temp Pulse Resp BP Pulse Ox O2 Del Method 12/02/21 07:48 36.6 C 58 L 18 186/79 H 98 Room Air 12/01/21 23:28 36.4 C L 63 20 97 Room Air PG Care Time/CCT Total # of Minutes Spent Total Time Spent with Patient: Total time spent is greater than 50% in coordination of care (as documented) at patient's floor/unit and/or counseling patient: Coding Level of Care Code 93644 Subseq Hosp Care Lvl 2 Diagnoses Hematuria R31.9 Radiation cystitis N30.40 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 C67.9; C78.00
--- NOTE | 2021-12-02 09:42 | Hospitalist Progress Note ---
Date of Service December 02, 2021 Assessment & Plan (1) Hematuria: Plan: 76 year old male w/ bladder cancer w/ lung mets, BPH, CAD, HTN, HLD, DM2, GI bleeding ([facility] admission 11/16/21-11/19/21), and CKD4 who presents w/ hematuria and obstructive urinary symptoms. - UA on admission- +blood, leukocyte esterase, 30+ WBCs, 30+ RBCs - Suspect symptoms are secondary to active bladder cancer in background of previous radiation cystitis - Rosa catheter in place, draining blood-tinged urine- continue manual irrigation of clots - UCx final negative, ceftriaxone completed 11/29-12/01 - Urology consulted -Plan for cystoscopy, clot evacuation, fulguration of bleeding vessels in OR 12/03 - Pt currently hemodynamically stable without any systemic symptoms (2) Anemia: Plan: -Hgb 7.0 on admission, most likely due to recent hematuria -S/p 1u pRBC transfusion in ED on 11/29, Hgb 7.7 after -Hgb 7.7 to 6.8, 1u pRBC administered with Hgb improved to 8.1 on 11/30 -Hgb 8.1 to 6.9 on 12/01, receiving 2u pRBC with improvement to 9.0 -Hgb 9.2 today -Trend CBC (3) Chronic kidney disease, stage IV (severe): Plan: -Cr 4.13 on admission, baseline appears 3-4 -Cr 4.2 to 4.1 today, slightly above baseline -Trend BMP (4) Diabetes mellitus, type 2: Plan: -Home regimen- weekly dulaglutide injections -MARY ALICE Do (5) 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 Hold chemoprophylaxis in setting of hematuria and significant anemia code: full dispo: medical/surgical Admission and Anticipated Discharge Date Admission Date: November 29, 2021 Supervising Physician Co-Signing Physician Notes I also saw the patient and confirmed stanton portions of the history and physical examination. Agree with the impression and plan as noted in the resident documentation. I also discussed the case with the urology cosmetic consultant. The patient notes a little bit more bladder spasm and discomfort from this today as compared to yesterday. Exam , 58, 18, 36.6, 90% room air Heart regular Respirations nonlabored Abdomen soft. Nontender. Data Hemoglobin 9.2 today after 2 units of packed red blood cells yesterday Creatinine 4.09, down from 4.19 yesterday. Assessment and Plan Gross hematuria secondary to bladder cancer, metastatic to lung Radiation cystitis Obstructive uropathy N.p.o. after midnight Cystoscopy, fulguration of bleeding vessels tomorrow Acute blood loss anemia Status post 2 units of packed red blood cells yesterday Trend CBC Additional per resident documentation Subjective No acute events overnight. Pt feels his bleeding has improved but notes moderate discomfort when he does urinate. Denies abdominal pain, passage of large clots, dysuria, nausea/vomiting, chest pain, dyspnea. Review of Systems Review of Systems: Per subjective Physical Exam Physical Exam: General: well-appearing, laying in bed, no acute distress HEENT: Atraumatic, normocephalic. EOMI, moist mucous membranes Pulm: CTAB. Mildly diminished at bases, mild expiratory wheezes, no crackles or increased work of breathing Cardiac: RRR, normal S1 and S2, no murmurs noted Abdominal: Soft, no suprapubic tenderness, mild distension and diffuse tendernes s : Rosa draining urine + blood, R nephrostomy tube draining blood/urine Skin: no pallor or cyanosis of extremities Results & Data Results & Data ([facility]) Vital Signs (Past 12 Hours) Vital Signs Temp Pulse Resp BP Pulse Ox O2 Del Method 12/02/21 07:48 36.6 C 58 L 18 186/79 H 98 Room Air 12/01/21 23:28 36.4 C L 63 20 97 Room Air Resident Activity Tracking Resident Involvement: Resident Care Provided Care Provided: Adult Hospital Medicine (1) Anemia Anemia type: unspecified type Qualified Code(s): D64.9 - Anemia, unspecified (2) Hypothyroidism Hypothyroidism type: acquired Qualified Code(s): E03.9 - Hypothyroidism, unspecified
[2021-12-02] MEDS: oxyCODONE HCL IR 5 MG TAB (IMMEDIATE RELEASE) PO PRN ×2 (10:46→18:31)
[2021-12-02] MEDS ORDERED: PHENAZOPYRIDINE HCL 200 MG TAB PO STA (11:26)
--- NOTE | 2021-12-02 17:59 | Anesthesiology Consultation ---
Date of Service December 02, 2021 Assessment & Plan Chart Review Chart Review: Acceptable Risk for Surgery and Patient NOT seen in Pre Admission Testing History Surgery Operation Date: 12/03/21 07:15 Proposed Procedures p Cystoscopy, Clot Evacation, Fulguration for Hematuria - Juarez Awan MD Height/Weight Height: 5 ft 4 in Weight: 70.4 kg Allergies Allergy/AdvReac Type Severity Reaction Status Date / Time Iodinated Contrast Media AdvReac Intermediate Hypertensio Verified 11/29/21 02:32 n atorvastatin [From Lipitor] AdvReac Mild muscle Verified 11/29/21 02:32 aches Medications Home Medications Medication Instructions Recorded Confirmed Last Taken dulaglutide 0.75 mg/0.5 mL 0.75 mg (0.5 mL) subcut WEEKLY #2 09/19/19 11/29/21 11/22/21 subcutaneous pen injector mL (Trulicity) albuterol sulfate 90 mcg/actuation 2 puff inhalation QID PRN 05/22/20 11/29/21 02/01/21 aerosol inhaler (Ventolin HFA) shortness of breath or wheezing #18 grams calcitriol 0.25 mcg capsule 0.25 mcg PO QPM 07/17/21 11/29/21 11/28/21 metoprolol succinate 100 mg 100 mg PO QPM #90 tabs 07/30/21 11/29/21 11/28/21 tablet,extended release 24 hr levothyroxine 100 mcg tablet 100 mcg PO QAM #90 tabs 10/12/21 11/29/21 11/28/21 (Synthroid) cetirizine 10 mg capsule 10 mg PO QAM 11/16/21 11/29/21 11/28/21 cinacalcet 30 mg tablet 30 mg PO 3XWK 11/16/21 11/29/21 11/27/21 fluticasone propionate 50 2 spray intranasal DAILY PRN 11/16/21 11/29/21 Unknown mcg/actuation nasal Dyspnea spray,suspension lactobacillus combination no.4 3 3,000 mmu cells PO QAM 11/16/21 11/29/21 11/28/21 billion cell capsule (Probiotic) rosuvastatin 5 mg tablet 5 mg PO QPM 11/16/21 11/29/21 11/28/21 pantoprazole 40 mg tablet,delayed 40 mg PO BID #60 tabs 11/19/21 11/29/21 11/28/21 release (Protonix) allopurinol 300 mg tablet 300 mg PO QAM 11/29/21 11/29/21 11/28/21 ferrous sulfate 325 mg (65 mg 325 mg PO 3XWK 11/29/21 11/29/21 11/27/21 iron) tablet oxybutynin chloride 5 mg 5 mg PO QAM 11/29/21 11/29/21 11/28/21 tablet,extended release 24 hr tamsulosin 0.4 mg capsule 0.4 mg PO BID 11/29/21 11/29/21 11/28/21 Active Medications Generic Name Dose Route Start Last Admin Trade Name Freq PRN Reason Stop Dose Admin Acetaminophen 1,000 mg 11/30/21 14:00 12/02/21 14:06 Acetaminophen 500 Mg Tab PO 12/30/21 13:59 Not Given Q8H JESSE Hydromorphone HCl 0.1 mg 11/29/21 09:52 11/30/21 13:08 Hydromorphone Inj 0.5 Mg/0.5 Ml Syr IV 12/13/21 09:51 0.1 mg Q6H PRN Administration Severe Pain Insulin Aspart 0 units 11/29/21 16:30 12/02/21 17:31 Insulin Aspart Per Unit SC 12/29/21 16:29 5 units ACHS JESSE Administration Insulin Glargine 6 units 11/29/21 21:00 12/02/21 08:27 Lantus Per Unit Charge SQ 12/29/21 20:59 6 units BID JESSE Administration Levothyroxine Sodium 100 mcg 11/29/21 10:00 12/02/21 08:27 Levothyroxine Sodium 100 Mcg Tablet PO 12/29/21 09:59 100 mcg QAM JESSE Administration Metoprolol Succinate 100 mg 11/29/21 21:00 12/01/21 20:54 Metoprolol Succ 50mg Ext Rel Tab PO 12/29/21 20:59 100 mg QPM JESSE Administration Oxycodone HCl 5 mg 12/02/21 10:10 12/02/21 10:46 Oxycodone Hcl Ir 5 Mg Tab (Immediate Release) PO 12/16/21 10:09 5 mg Q6H PRN Administration Pain Rosuvastatin Calcium 5 mg 08/07/22 21:00 12/01/21 20:55 Rosuvastatin Calcium 5 Mg Tab PO 12/29/21 20:59 5 mg QPM JESSE Administration Tamsulosin HCl 0.4 mg 11/29/21 09:52 12/02/21 08:27 Tamsulosin Hcl 0.4 Mg Cap PO 12/29/21 09:51 0.4 mg BID JESSE Administration Past Medical History Medical History Acid reflux Acute duodenal ulcer with hemorrhage Adenomatous polyp of colon Anemia Atrial fibrillation with rapid ventricular response Benign essential hypertension Benign prostatic hyperplasia 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 Blood loss anemia CAD (coronary atherosclerotic disease) Chronic kidney disease STAGE IV Chronic obstructive pulmonary disease Diabetes mellitus, type 2 Diarrhea Hearing loss History of blood transfusion 01/2021 [facility] History of stroke without residual deficits OCCURRED DURING AAA REPAIR [facility] 5-6 YRS 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-NO ISSUES SINCE Hyperlipidemia Hypothyroidism Past myocardial infarction Port-A-Cath in place Secondary hyperparathyroidism Subclavian artery aneurysm Vocal fold paralysis, left Past Family History Family History Grandfather , in his eighties No problems noted. Grandmother , young cause unknown No problems noted. Grandfather , in his eighties No problems noted. Grandmother , did have breast cancer but in her eighties of unknown cause No problems noted. Father , He in his sixties had had three strokes and high blood pressure He had had a kidney removed perhaps from cancer Stroke Mother , in her mid seventies complications from smoking No problems noted. Daughter Age: 50 No problems noted. Daughter Age: 47 No problems noted. Daughter Age: 42 No problems noted. Brother , at age 7 of a stroke Stroke Grandmother (Maternal) Breast cancer Other No family history of adverse response to anesthesia No family history of bleeding disorder Denies family history of Ovarian cancer Prostate cancer Myocardial infarction Colorectal cancer Past Surgical History Surgical History H/O arthroscopy of knee H/O transurethral destruction of bladder lesion 08/17/2019 History of biopsy of bladder History of cardiac cath History of carpal tunnel release RIGHT History of cataract surgery BILATERAL History of colonoscopy History of cystoscopy 01/19/2020 History of esophagogastroduodenoscopy (EGD) History of lymph node biopsy Nephrostomy status R PCN placed by IR 10/23/2021 S/P AAA (abdominal aortic aneurysm) repair Status post biopsy of kidney Social History Smoking Status: Former smoker tobacco type: cigarettes Smoking cigarettes per day: 10 Do You Dip or Chew Tobacco: No Hx Alcohol Use: No Hx Substance Use: No substance use type: does not use Physical Exam Vital Signs Last Vital Signs Temp 36.3 C L 12/02/21 16:05 Pulse 62 12/02/21 16:05 Resp 18 12/02/21 16:05 BP 170/74 H 12/02/21 16:05 Pulse Ox 95 12/02/21 16:05 O2 Del Method 12/02/21 16:05 Testing Laboratory Results 12/02/21 06:07 12/02/21 06:07 Urine Color Red 11/29/21 02:06 Urine Appearance Turbid (Clear) A 11/29/21 02:06 Urine pH 7.0 (4.5-7.5) 11/29/21 02:06 Ur Specific [place] 1.025 (1.000-1.030) 11/29/21 02:06 Urine Protein 3+ (Negative) H 11/29/21 02:06 Urine Glucose (UA) Trace (Negative) H 11/29/21 02:06 Urine Ketones Negative (Negative) 11/29/21 02:06 Urine Nitrite Negative (Negative) 11/29/21 02:06 Ur Leukocyte Esterase 1+ (Negative) H 11/29/21 02:06 Urine RBC >30 /hpf (0-4) H 11/29/21 02:06 Urine WBC >30 /hpf (0-5) H 11/29/21 02:06 Ur Epithelial Cells 0-5 /lpf (0-5) 11/29/21 02:06 Blood Type O Positive 11/29/21 04:04 Antibody Screen NEGATIVE 11/29/21 04:04 11/29/21 02:06 Urine Culture - Final Urine,Clean Catch No growth - less than 1,000 colonies/mL. 12/02/21 12/02/21 12/02/21 17:01 11:39 07:26 POC Glucose 176 H 95 73
[2021-12-02] MEDS: ROSUVASTATIN CALCIUM 5 MG TAB PO SCH (21:30)
[2021-12-02] MEDS: METOPROLOL SUCC 50MG EXT REL TAB PO SCH (21:30)
[2021-12-03] MEDS: ACETAMINOPHEN 500 MG TAB PO SCH ×3 (05:49→21:32)
[2021-12-03] MEDS ORDERED: PROPOFOL IV EMULSION 10 MG/ML 20 ML VIAL IV ONE (06:56)
[2021-12-03] MEDS ORDERED: LIDOCAINE 2% MPF LOCAL 5 ML VIAL INFIL ONE (06:56)
[2021-12-03] MEDS ORDERED: ONDANSETRON INJ 2 MG/ML 2 ML VIAL ONE (06:56)
[2021-12-03] MEDS ORDERED: fentaNYL citrate 100 MCG/2 ML VIAL ONE (06:56)
--- NOTE | 2021-12-03 07:05 | Urology Progress Note ---
Date of Service December 03, 2021 Assessment & Plan (1) Hematuria: Plan Plan for cystoscopy, clot evacuation fulguration this morning Risk, benefits, expectations reviewed again this morning Admission and Anticipated Discharge Date Admission Date: November 29, 2021 Subjective 76-year-old male with refractory radiation cystitis secondary to metastatic bladder cancer and prior radiation to the bladder He has a right nephroureteral stent in place and has been siphoning blood from the bladder through the nephrostomy tube He is required several units of blood during this hospitalization He is stable currently we will plan for cystoscopy, fulguration, clot evacuation this morning in an effort to try to limit further bleeding Physical Exam Constitutional: well developed and well nourished Neck: neck nontender Respiratory: normal respiratory effort; no respiratory distress and does not use accessory muscles Cardiovascular: Rate/Rhythm: regular rate Vessels: radial pulses present Extremities: no edema Gastrointestinal (Abdomen): Inspection/Auscultation: abdomen normal to inspection Percussion/Palpation: abdomen soft; abdomen nontender and no guarding Musculoskeletal: Head/Neck/Chest: normocephalic and head atraumatic Extremities: extremities normal to inspection Skin: no rashes and no lesions Trauma: no evidence of skin trauma Neurologic: awake; not obtunded Speech / Cognition: normal speech Motor/Sensory: no tremor Psychiatric: Orientation: alert and oriented x 3 Genitourinary: no CVA tenderness Lymphatic: no lymphadenopathy Results & Data ([facility]) Vital Signs (Past 12 Hours) Vital Signs Temp Pulse Resp BP Pulse Ox O2 Del Method 12/03/21 06:50 36.7 C 68 18 158/79 H 98 Room Air 12/02/21 23:07 36.5 C 91 H 18 151/70 H 96 Room Air PG Care Time/CCT Total # of Minutes Spent Total Time Spent with Patient: Total time spent is greater than 50% in coordination of care (as documented) at patient's floor/unit and/or counseling patient: Coding Level of Care Code 83731 Subseq Hosp Care Lvl 2 Diagnoses Hematuria R31.9
[2021-12-03 07:10] LABS: Hemoglobin 8.3 g/dl (14.0-18.0); Mean Corpuscular Hemoglobin 29.9 pg (25.0-34.0); Mean Corpuscular Hgb Conc 31.9 g/dL (32.0-36.0); Mean Corpuscular Volume 93.5 fL (80.0-100.0); Mean Platelet Volume 11.4 fL (9.4-12.4); Platelet Count 144 K/uL (130-400); RDW Coefficient of Variation 18.5 % (11.5-14.5); RDW Standard Deviation 63.1 fL (36.4-46.3); Red Blood Count 2.78 M/uL (4.63-6.08); White Blood Count 5.83 K/ul (4.8-10.8)
[2021-12-03] MEDS ORDERED: cefTRIAXone SODIUM 1,000 MG in DEXTROSE 5% 50 ML IV STA (07:16)
[2021-12-03] MEDS ORDERED: PROMETHAZINE HCL 12.5 MG in SODIUM CHLORIDE 0.9% 50 ML IV PRN (07:26)
[2021-12-03] MEDS ORDERED: ONDANSETRON INJ 2 MG/ML 2 ML VIAL IV PRN (07:26)
[2021-12-03] MEDS ORDERED: HYDROmorphone INJ 2 MG/ML SYR/VIAL IV PRN (07:26)
[2021-12-03] MEDS ORDERED: fentaNYL citrate 100 MCG/2 ML VIAL IV PRN (07:26)
[2021-12-03] MEDS ORDERED: ePHEDrine sulfate 50 MG/ML AMP IV PRN (07:26)
[2021-12-03] MEDS ORDERED: ATROPINE SULFATE 0.1 MG/ML 10ML SYR IV PRN (07:26)
[2021-12-03 07:34] LABS: BUN Creatinine Ratio 12.7 (10-20); Calcium 7.7 mg/dl (8.5-10.1); Creatinine Clr Calc Pharmacy 13.2 ml/min; Est GFR (African American) 15.5 ml/min; Est GFR (Non-African American) 13.4 ml/min; Potassium 4.3 mmol/L (3.5-5.1)
[2021-12-03] MEDS ORDERED: ePHEDrine sulfate 50 MG/ML AMP ONE (08:10)
[2021-12-03] MEDS ORDERED: PHENYLEPHRINE HCL 10 MG/ML VIAL ONE (08:10)
--- NOTE | 2021-12-03 08:19 | Operative Report ---
PG Post Operative Report Pre & Post Diagnosis Operation Date: 12/03/21 07:15 Pre-Op Diagnosis: Hematuria Post-Op Diagnosis: Hematuria I identified the patient and participated in the time-out.: Yes Procedure Operation Date: 12/03/21 07:15 Actual Procedures p Cystoscopy, Clot Evacation, Fulguration for Hematuria - Juarez Awan MD Surgeon Juarez Awan MD Glass Fitter none Estimated Blood Loss 0 Findings Consistent with Post-Op Diagnosis Specimens none Description of Procedure The patient was identified in the preoperative holding area, appropriate informed consents were reviewed and completed and the patient was transferred to the operative suite. Upon arrival, appropriate antibiotics and anesthesia were administered and the patient was placed in dorsal lithotomy position and prepped and draped in sterile fashion. To be in the case to pass a 27 Monegasque resectoscope per urethra. Inspection revealed a healthy-appearing urethra and small prostate. Upon entering the bladder he has clear radiation cystitis but visualization was compromised because he had a significant amount of intravesical clot. I shall evacuated the clotremoving in excess of 500 cc of. Reinspection at that time allow better visualization of the bladder wall and he clearly has circumferential radiation cystitis. There is a right nephroureteral stent visualized penetrating into the bladder. The area immediately around the stent appeared to be the most inflamed and irritated and the most likely source of active bleeding. This tissue was quite mounded but did not have the typical papillary architecture of the bladder tumor. Utilizing a button electrode I began to cauterize this area around the right UO and all other areas that showed active bleeding. A significant portion of the bladder was treatedlikely 20%. Hemostasis was excellent at the conclusion of the case. I saw no active bleeding coming through the ne phroureteral stent or from the right orifice. I hope that all of his bleeding has been from the bladder itself and is just simply been siphoning through his right nephroureteral stent. I elected to leave him without a catheter for fear that the catheter will provoke further bleeding. He was reversed of anesthesia and taken to the recovery room in stable condition. There were no complications. I attest to the content of the Intraoperative Record and any orders documented therein. Any exceptions are noted below.
[2021-12-03] MEDS: INSULIN ASPART PER UNIT SC SCH ×4 (08:42→21:32)
--- NOTE | 2021-12-03 08:50 | Anesthesiology Progress Note ---
Date of Service December 03, 2021 Anesthesia Post Procedure Vital Signs Vital Signs: Temp Pulse Pulse Resp BP Pulse Ox O2 Del Method 12/03/21 08:40 36.3 C L 72 16 152/88 H 100 Room Air 12/03/21 08:30 74 16 162/86 H 100 Nasal Cannula 12/03/21 08:21 36.0 C L 61 12 122/66 100 Nasal Cannula 12/03/21 06:50 36.7 C 68 18 158/79 H 98 Room Air 12/02/21 23:07 36.5 C 91 H 18 151/70 H 96 Room Air 12/02/21 16:05 36.3 C L 62 18 170/74 H 95 Room Air 12/02/21 12:15 Room Air O2 Flow Rate 12/03/21 08:40 12/03/21 08:30 2 12/03/21 08:21 2 12/03/21 06:50 12/02/21 23:07 12/02/21 16:05 12/02/21 12:15 Pain Intensity Penis: Pain Intensity: 7 Transfer of Care Handoff Completed per policy Notes Mental Status: alert / awake / arousable and participated in evaluation Patient Amnestic to Procedure: Yes Nausea / Vomiting: adequately controlled Pain: adequately controlled Airway Patency, RR, SpO2: stable & adequate BP & HR: stable & adequate Hydration State: stable & adequate Anesthetic Complications: no major complications apparent
[2021-12-03] MEDS ORDERED: FLUTICASONE PROPIONATE NA SPR 16 GM BTL PRN (09:03)
[2021-12-03] MEDS ORDERED: ALBUTEROL HFA 8 GM INHALER INH PRN (09:03)
[2021-12-03] MEDS: LEVOTHYROXINE SODIUM 100 MCG TABLET PO SCH (09:05)
[2021-12-03] MEDS: TAMSULOSIN HCL 0.4 MG CAP PO SCH ×2 (09:05→21:31)
[2021-12-03] MEDS: LANTUS PER UNIT CHARGE SQ SCH (09:05)
[2021-12-03] MEDS: PANTOprazole 40 MG TAB PO SCH ×2 (09:38→21:32)
[2021-12-03] MEDS: oxyCODONE HCL IR 5 MG TAB (IMMEDIATE RELEASE) PO PRN ×2 (09:38→21:31)
[2021-12-03] MEDS: OXYBUTYNIN CHLORIDE XL 5 MG TABCR PO SCH (09:39)
[2021-12-03] MEDS: ADVANCED PROBIOTIC 1250 MG CAPSULE PO SCH (09:39)
[2021-12-03] MEDS: CETIRIZINE HCL 10 MG TABLET PO SCH (09:39)
[2021-12-03] MEDS: allopurinoL 300 MG TAB PO SCH (09:39)
--- NOTE | 2021-12-03 09:49 | Hospitalist Progress Note ---
Date of Service December 03, 2021 Assessment & Plan (1) Hematuria: Plan: 76 year old male w/ bladder cancer w/ lung mets, BPH, CAD, HTN, HLD, DM2, GI bleeding ([facility] admission 11/16/21-11/19/21), and CKD4 who presents w/ hematuria and obstructive urinary symptoms. - UA on admission- +blood, leukocyte esterase, 30+ WBCs, 30+ RBCs - Suspect symptoms are secondary to active bladder cancer in background of previous radiation cystitis - UCx final negative, ceftriaxone completed 11/29-12/01 - Urology consulted -S/p cystoscopy, clot evacuation, fulguration of bleeding vessels on 12/03 -Chronic radiation cystitis noted -Clot evacuated- 500 cc -Cauterization of bleeding vessels performed- about 20% of bladder cauterized -Pt tolerated procedure well with adequate hemostasis - Pt currently hemodynamically stable postoperatively without any systemic symptoms (2) Anemia: Plan: -Hgb 7.0 on admission, most likely due to recent hematuria -S/p 1u pRBC transfusion in ED on 11/29, Hgb 7.7 after -Hgb 7.7 to 6.8, 1u pRBC administered with Hgb improved to 8.1 on 11/30 -Hgb 8.1 to 6.9 on 12/01, receiving 2u pRBC with improvement to 9.0 -Hgb 8.3 today prior to OR, will recheck later today -Trend CBC (3) Chronic kidney disease, stage IV (severe): Plan: -Cr 4.13 on admission, baseline appears 3-4 -Cr stable at 4.1 today -Trend BMP (4) Diabetes mellitus, type 2: Plan: -Home regimen- weekly dulaglutide injections -MARY ALICE Do (5) 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 Hold chemoprophylaxis in setting of recent OR procedure code: full dispo: medical/surgical Admission and Anticipated Discharge Date Admission Date: November 29, 2021 Supervising Physician Co-Signing Physician Notes I also saw the patient and confirmed stanton portions of the history and physical examination. Agree with the impression and plan as noted in the resident documentation. I also discussed the case with the urology hospice care sales consultant. The patient notes a little bit more bladder spasm and discomfort from this today as compared to yesterday. Exam 156/78, 65, 18, 36.4, 96% on room air Heart regular Respirations nonlabored Abdomen soft. Nontender. Data Hemoglobin 8.3, platelet count 144 Assessment and Plan Gross hematuria secondary to bladder cancer, metastatic to lung Radiation cystitis Obstructive uropathy S/p cystoscopy, clot evacuation, fulguration of bleeding vessels today If CBC stable, should be ready for discharge tomorrow Acute blood loss anemia CBC stable today Recheck in a.m. Additional per resident documentation Subjective No acute events overnight. Pt seen shortly after returning from OR cystoscopy with clot evacuation and vessel fulguration. He reports general discomfort around his entire body and some moderate burning of head of penis. Denies dypnea, lightheadedness, chest pain, abdominal pain. Review of Systems Review of Systems: Per subjective Physical Exam Physical Exam: General: well-appearing, laying in bed, appears mildly uncomfortable and laying still HEENT: Atraumatic, normocephalic. EOMI, moist mucous membranes Pulm: Mildly diminished at bases, mild expiratory wheezes, no crackles or incre ased work of breathing Cardiac: RRR, normal S1 and S2, no murmurs noted Abdominal: Soft, mild diffuse tenderness but no guarding or rebound : R nephrostomy tube draining blood/urine, no Rosa catheter in place Skin: no pallor or cyanosis of extremities Results & Data Results & Data ([facility]) Vital Signs (Past 12 Hours) Vital Signs Temp Pulse Pulse Resp BP Pulse Ox O2 Del Method 12/03/21 08:40 36.3 C L 72 16 152/88 H 100 Room Air 12/03/21 08:30 74 16 162/86 H 100 Nasal Cannula 12/03/21 08:21 36.0 C L 61 12 122/66 100 Nasal Cannula 12/03/21 06:50 36.7 C 68 18 158/79 H 98 Room Air 12/02/21 23:07 36.5 C 91 H 18 151/70 H 96 Room Air O2 Flow Rate 12/03/21 08:40 12/03/21 08:30 2 12/03/21 08:21 2 12/03/21 06:50 12/02/21 23:07 Resident Activity Tracking Resident Involvement: Resident Care Provided Care Provided: Adult Hospital Medicine (1) Anemia Anemia type: unspecified type Qualified Code(s): D64.9 - Anemia, unspecified (2) Hypothyroidism Hypothyroidism type: acquired Qualified Code(s): E03.9 - Hypothyroidism, unspecified
[2021-12-03] MEDS: CARBOHYDRATES FOR HYPOGLYCEMIA PO PRN ×2 (16:35→17:06)
[2021-12-03] MEDS ORDERED: CALCITRIOL 0.25 MCG CAPSULE PO SCH (21:00)
[2021-12-03] MEDS: ROSUVASTATIN CALCIUM 5 MG TAB PO SCH (21:32)
[2021-12-03] MEDS: METOPROLOL SUCC 50MG EXT REL TAB PO SCH (21:32)
[2021-12-03] MEDS ORDERED: LACTATED RINGER'S 500 ML IV ONE (22:08)
[2021-12-03 23:05] VITALS: BP 143/69; PULSE 63; TEMP 97.7; O2SAT 95
[2021-12-04] MEDS: ACETAMINOPHEN 500 MG TAB PO SCH (05:57)
[2021-12-04 06:17] LABS: Hematocrit (blood only) 25.5 % (40.1-51.0); Mean Corpuscular Hemoglobin 29.5 pg (25.0-34.0); Mean Corpuscular Hgb Conc 31.4 g/dL (32.0-36.0); Mean Corpuscular Volume 94.1 fL (80.0-100.0); Mean Platelet Volume 10.9 fL (9.4-12.4); Platelet Count 133 K/uL (130-400); RDW Coefficient of Variation 18.3 % (11.5-14.5); RDW Standard Deviation 62.7 fL (36.4-46.3); Red Blood Count 2.71 M/uL (4.63-6.08); White Blood Count 5.76 K/ul (4.8-10.8)
[2021-12-04 07:09] LABS: BUN Creatinine Ratio 12.4 (10-20); Calcium 7.6 mg/dl (8.5-10.1); Creatinine Clr Calc Pharmacy 13.2 ml/min; Est GFR (African American) 15.4 ml/min; Est GFR (Non-African American) 13.3 ml/min; Potassium 4.5 mmol/L (3.5-5.1)
[2021-12-04] MEDS: TAMSULOSIN HCL 0.4 MG CAP PO SCH (08:28)
[2021-12-04] MEDS: PANTOprazole 40 MG TAB PO SCH (08:28)
[2021-12-04] MEDS: ADVANCED PROBIOTIC 1250 MG CAPSULE PO SCH (08:28)
[2021-12-04] MEDS: OXYBUTYNIN CHLORIDE XL 5 MG TABCR PO SCH (08:28)
[2021-12-04] MEDS: allopurinoL 300 MG TAB PO SCH (08:28)
[2021-12-04] MEDS: INSULIN ASPART PER UNIT SC SCH (08:32)
[2021-12-04] MEDS: LEVOTHYROXINE SODIUM 100 MCG TABLET PO SCH (08:33)
[2021-12-04] MEDS: CETIRIZINE HCL 10 MG TABLET PO SCH (08:36)
[2021-12-04] MEDS ORDERED: LANTUS PER UNIT CHARGE SQ SCH (09:00)
--- NOTE | 2021-12-04 09:23 | Urology Progress Note ---
Date of Service December 04, 2021 Assessment & Plan (1) Hematuria: Plan: Metastatic TCC with radiation cystitis and an indwelling right nephroureteral stent Overall doing quite well now status post cystoscopy, clot evacuation and fulguration Labs are relatively stable I think is reasonable to His nephrostomy tube I think he is stable for discharge home today Admission and Anticipated Discharge Date Admission Date: November 29, 2021 Subjective Postop day #1 status post cystoscopy, clot evacuation and fulguration Doing quite well He has his catheter out He has been siphoning most of his urine through his right nephrostomy tube Physical Exam Physical Exam: Urine in the nephrostomy bag is clear Comfortable appearing Abdomen soft Results & Data ([facility]) Vital Signs (Past 12 Hours) Vital Signs Temp Pulse Resp BP Pulse Ox O2 Del Method 12/03/21 23:04 36.5 C 63 18 143/69 H 95 Room Air 12/03/21 21:30 36.4 C L 68 16 163/81 H 96 Room Air PG Care Time/CCT Total # of Minutes Spent Total Time Spent with Patient: Total time spent is greater than 50% in coordination of care (as documented) at patient's floor/unit and/or counseling patient: Coding Level of Care Code 82835 Subseq Hosp Care Lvl 2 Diagnoses Hematuria R31.9
[2021-12-04] MEDS ORDERED: HEPARIN 100 UNIT/ML 5ML FLUSH FLUSH PRN (10:01)
--- NOTE | 2021-12-04 11:16 | Discharge Summary ---
Date of Service December 04, 2021 Admission HPI Per Admitting Provider 76 year old male w/ bladder cancer w/ lung mets, BPH, CAD, HTN, HLD, DM2, GI bleeding ([facility] admission 11/16/21-11/19/21), and CKD4 who presents w/ hematuria and obstructive urinary symptoms. He has had intermittent gross hematuria x 2 days. During 11/28/21, he passed some clots and has been unable to urinate. Denies illness symptoms like fever/chills. No bloody or black stool. Denies anemia symptoms other than slight lightheadedness. Last meds last PM. + dysuria, new. He uncapped his nephrostomy tube site and attached to bag w/ some relief after 200mL drainage. ED course: pain control w/ Fentanyl IV. Rosa insertion. VSS. Wbc 6.93. Hb 7.0, has been 7s-8s in past month. AG 12. Cr 4.13, at baseline. UA turbid >30 wbc. urine culture pending. Admission Exam Per Admitting Provider General: Grossly A&O. NAD. Cooperative. HEENT: Atraumatic, normocephalic. EOMI Pulm: CTAB. Mildly diminished at bases. Mild wheezes. No significant crackles. No accessory muscle use. Cardiac: RRR, -mrg. Radial pulses intact and symmetrical. 1 to 2+ pretibial ble. Abdominal: Nontender, nondistended, soft. Integ. Mild abrasions at bilat shins. Msk: Moving all extrem. Principal Diagnosis Hematuria due to irritation from nephroureteral stent Discharge Exam General: well-appearing, sitting up in chair in normal clothes HEENT: Moist mucous membranes Pulm: Mildly diminished at bases, mild expiratory wheezes, no crackles or increased work of breathing Cardiac: RRR, normal S1 and S2, no murmurs noted Abdominal: Soft, nontender, nondistended : no Rosa catheter in place Skin: no pallor or cyanosis of extremities Discharge Data Allergies Allergy/AdvReac Type Severity Reaction Status Date / Time Iodinated Contrast Media AdvReac Intermediate Hypertensio Verified 11/29/21 02:32 n atorvastatin [From Lipitor] AdvReac Mild muscle Verified 11/29/21 02:32 aches Consultations 11/29/21 06:07 ED Decision to Admit Stat 08/07/22 06:23 Consult Urology Routine Procedures Performed Operation Date: 12/03/21 07:15 Actual Procedures p Cystoscopy, Clot Evacation, Fulguration for Hematuria - Juarez Awan MD Hospital Course (1) Hematuria: 76 year old male w/ bladder cancer w/ lung mets, BPH, CAD, HTN, HLD, DM2, GI bleeding ([facility] admission 11/16/21-11/19/21), and CKD4 who presents w/ hematuria and obstructive urinary symptoms. - UA on admission- +blood, leukocyte esterase, 30+ WBCs, 30+ RBCs - Suspect symptoms are secondary to active bladder cancer in background of previous radiation cystitis - UCx final negative, ceftriaxone completed 11/29-12/01 - Urology consulted -S/p cystoscopy, clot evacuation, fulguration of bleeding vessels on 12/03 -Chronic radiation cystitis noted -Clot evacuated- 500 cc -Cauterization of bleeding vessels performed- about 20% of bladder cauterized -Pt tolerated procedure well with adequate hemostasis -Nephrostomy tube capped at time of discharge, voiding adequately post-procedure -Pt hemodynamically stable postoperatively without any systemic symptoms at time of discharge -F/u with urology as outpatient (2) Anemia: -Hgb 7.0 on admission, most likely due to recent hematuria. Baseline appears 9- 10 -S/p 1u pRBC transfusion in ED on 11/29, Hgb 7.7 after -Hgb 7.7 to 6.8, 1u pRBC administered with Hgb improved to 8.1 on 11/30 -Hgb 8.1 to 6.9 on 12/01, receiving 2u pRBC with improvement to 9.0 -Hgb 8.0 stable on day of discharge -Recheck hemoglobin at PCP f/u (3) Chronic kidney disease, stage IV (severe): -Cr 4.13 on admission, baseline appears 3-4 -Cr stable at 4.1 today (4) Diabetes mellitus, type 2: -Home regimen- weekly dulaglutide injections (5) 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: follows oncology as outpatient (6) Hypothyroidism: - continued home levothyroxine (7) CAD (coronary atherosclerotic disease): - continued home rosuvastatin, metoprolol (8) Benign essential hypertension: - continued home metoprolol 100 mg daily (9) Acid reflux: - continued home pantoprazole 40 mg PO BID Total Time Total Time Spent Total Time Spent (In Minutes): 30 Discharge Plan Discharge Items Patient Disposition: Home - Self-Care Reason For Visit: BLOOD IN URINE Discharge Diagnosis: Hematuria due to nephrostomy tube irritation Activity: Resume your previous activity Non-emergency contact: Primary Care Provider and Urologist Call non-emergency contact if: you have any medication questions, your symptoms worsen, your pain is worsening and you have a fever Follow-up/Referrals: Juarez Awan MD [Physician] - Hilda Berry MD [Primary Care Provider] - 12/14/21 11:30 am Diet: Carb Consistent or DM2 Addtl Attending Provider Instructions: You were admitted to the hospital for hematuria/blood in urine. Urology discovered the bleeding was most likely due to the nephrostomy tube's insertion into the bladder, which caused some irritation of the lining around it. The area was cauterized and your nephrostomy tube was clamped and removed. There shouldn't be any further bleeding but it is important to rest and recover slowly. A discharge summary will be sent to your primary care physician to ensure continuity of care. Please bring this discharge summary with you to your next office appointment so that your provider can review it at that time. Follow-up appointments: Make a follow-up appointment with your PCP within the next week. It is very important that you follow up with them shortly after discharge from the hospital. You should also see urology soon for a follow up appointment with Dr. Awan Medications: Your medication list has been reviewed and reconciled upon discharge to ensure accuracy and continuity of care. An updated list of all your medications is included with your hospital discharge paperwork. Please review this list closely, and make note of any changes. Take your medications as instructed; do not skip a dose of your medicines. Make sure all of your doctors know every medicine you are taking (including rhip-oic-womyoio medicines, vitamins, and supplements). Call your primary care provider before taking any new medicines (including aqfc-pxn-njpbery medicines, vitamins, and supplements), because some of these may interact with your current medications, or may make your symptoms worse. Tell your primary care provider if you cannot afford your medications. CONTACT YOUR PRIMARY CARE PROVIDER if you experience any of the following: Abdominal pain Nausea/vomiting Painful urination Blood in urine Difficulty following your treatment plan, or difficulty taking medications CALL 911 OR GO TO THE EMERGENCY DEPARTMENT if you experience any of the following: Sudden, severe abdominal pain or nausea/vomiting Severe chest pain, or chest pain that radiates (moves) to your jaw or arm Sudden, severe shortness of breath or difficulty breathing Thank you for allowing us to participate in your care. Pending Studies at Discharge: No Stand-Alone Forms: My [facility], Smoking Cessation Medications and DC Order Prescriptions: Continued metoprolol succinate 100 mg tablet extended release 24 hr 100 mg PO QPM Qty: 90 3RF Label Comments: 08/14/19 - PT STATES CURRENTLY NOT TAKING MEDICATION Trulicity 0.75 mg/0.5 mL pen injector 0.75 mg SQ WEEKLY Qty: 2 0RF Rx Instructions: PT TAKES ON TUESDAY albuterol sulfate [Ventolin HFA] 90 mcg/actuation HFA aerosol inhaler 2 puff inhalation QID PRN (Reason: shortness of breath or wheezing) Qty: 18 2RF levothyroxine [Synthroid] 100 mcg tablet 100 mcg PO QAM Qty: 90 3RF calcitriol 0.25 mcg capsule 0.25 mcg PO QPM fluticasone propionate 50 mcg/actuation spray,suspension 2 spray intranasal DAILY PRN (Reason: Dyspnea) Rx Instructions: uses for sob rosuvastatin 5 mg Tablet 5 mg PO QPM cinacalcet 30 mg Tablet 30 mg PO 3XWK Rx Instructions: tue cetirizine 10 mg Capsule 10 mg PO QAM Probiotic 3 billion cell Capsule 3,000 mmu cells PO QAM Rx Instructions: administer with a meal pantoprazole [Protonix] 40 mg tablet,delayed release (DR/EC) 40 mg PO BID Qty: 60 0RF tamsulosin 0.4 mg Capsule 0.4 mg PO BID ferrous sulfate 325 mg (65 mg iron) tablet 325 mg PO 3XWK Rx Instructions: Take one tablet Tuesday oxybutynin chloride 5 mg tablet extended release 24hr 5 mg PO QAM allopurinol 300 mg tablet 300 mg PO QAM Discharge Orders: Discharge Order (Routine); Ordered 12/04/21 Ordered By: Marysol Solis/Other Patient Handouts: Understanding Pouchitis, What is Hematuria? Admission Data Admit Date/Time: 11/29/21 06:23 Attending Provider: Harsh Dunaway Admit Provider: Raghavendra Theodore Primary Care Provider: Hilda Berry Other Providers: Arun Cobb ; Santosh Piper Other Interventions: Discharge Summary Assessment (RN) Last Done: 12/04/21 09:41 Supervising Physician Co-Signing Physician Notes Patient seen and examined independently of PGY-2 Dr. Austin. Agree with history, exam findings, assessment and plan of care as outlined. In brief, Mr. Crews is a 76 year old male with history of bladder cancer with lung mets, BPH, CAD, HTN, DM, GI bleed (October 2021) and CKD Stage 4 admitted with hematuria and obstructive uropathy. 1. Hematuria. Secondary to active bladder cancer and prior radiation cystitis. S/p cystoscopy with clot evacuation and fulguration of bleeding vessels on 12/03. Able to urinate and doing well. 2. Anemia secondary to blood loss. 3. CKD, stage 4. Baseline Cr 3-4. 4. DM. basal bolus insulin. Resume home meds on discharge. 5. Bladder cancer with mets to the lung. Follows with oncology as an outpati ent. 6. CAD, HTN. Continue rosuvastatin, metoprolol Dispo: discharge home today. I personally spent 25 minutes discharge planning for this patient. Resident Activity Tracking Resident Involvement: Resident Care Provided Care Provided: Adult Hospital Medicine
== END 2021-12-04 11:28 | disposition home or self-care (01) | DRG 669 ==
LOC: ED 00:23 → SUATTDRO 06:23 → EDINP 06:23 → 2N 15:54

== ENCOUNTER 2021-12-27 23:16 | Inpatient (IN) ==
--- NOTE | 2021-12-27 23:49 | Emergency Department Note ---
History of Present Illness General Chief complaint: Weakness Stated complaint: WEAKNESS, PAIN ALL OVER Time Seen by Provider: 12/27/21 23:33 History of Present Illness Maximum Pain Intensity: 5 76-year-old male presents emergency department generalized weakness, diarrhea, history of anemia, history of treatment for cancer. Patient was seen 3 days ago, was treated for anemia had received blood and was treated for hypocalcemia and received calcium. Patient went home he has been very weak continued diarrhea unable to ambulate now. was concerned due to his generalized weakness. Patient denies any recent infection except for diarrhea. There are no other complaints from the patient at this time Home Medications Medication Instructions Recorded Confirmed Type dulaglutide 0.75 mg/0.5 mL 0.75 mg (0.5 mL) subcut WEEKLY #2 09/19/19 12/28/21 Rx subcutaneous pen injector mL (Trulicity) albuterol sulfate 90 mcg/actuation 2 puff inhalation QID PRN 05/22/20 12/28/21 Rx aerosol inhaler (Ventolin HFA) shortness of breath or wheezing #18 grams calcitriol 0.25 mcg capsule 0.25 mcg PO QPM 07/17/21 12/28/21 History metoprolol succinate 100 mg 100 mg PO QPM #90 tabs 07/30/21 12/28/21 Rx tablet,extended release 24 hr levothyroxine 100 mcg tablet 100 mcg PO QAM #90 tabs 10/12/21 12/28/21 Rx (Synthroid) cetirizine 10 mg capsule 10 mg PO QAM 11/16/21 12/28/21 History cinacalcet 30 mg tablet 30 mg PO 3XWK 11/16/21 12/28/21 History fluticasone propionate 50 2 spray intranasal DAILY PRN 11/16/21 12/28/21 History mcg/actuation nasal Dyspnea spray,suspension lactobacillus combination no.4 3 3,000 mmu cells PO QAM 11/16/21 12/28/21 History billion cell capsule (Probiotic) pantoprazole 40 mg tablet,delayed 40 mg PO BID #60 tabs 11/19/21 12/28/21 Rx release (Protonix) allopurinol 300 mg tablet 300 mg PO QAM 11/29/21 12/28/21 History ferrous sulfate 325 mg (65 mg 325 mg PO 3XWK 11/29/21 12/28/21 History iron) tablet oxybutynin chloride 5 mg 5 mg PO QAM 11/29/21 12/28/21 History tablet,extended release 24 hr tamsulosin 0.4 mg capsule 0.4 mg PO BID 11/29/21 12/28/21 History rosuvastatin 5 mg tablet 5 mg PO QPM #90 tabs 12/10/21 12/28/21 Rx Carboplatin Tabs 1 tab PO .NAUSEA PRN prn after 12/24/21 12/28/21 History chemo Gemcitabine Pill 1 tab PO DIRECTED 12/24/21 12/28/21 History olanzapine 2.5 mg tablet 2.5 mg PO DIRECTED 12/24/21 12/28/21 History Allergies Allergy/AdvReac Type Severity Reaction Status Date / Time Iodinated Contrast Media AdvReac Intermediate Hypertensio Verified 12/28/21 00:51 n atorvastatin [From Lipitor] AdvReac Mild muscle Verified 12/28/21 00:51 aches Past Med/Surg History Medical History Acid reflux Acute duodenal ulcer with hemorrhage Adenomatous polyp of colon Atrial fibrillation with rapid ventricular response Benign essential hypertension Benign prostatic hyperplasia 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 Blood loss anemia CAD (coronary atherosclerotic disease) Chronic kidney disease STAGE IV Chronic obstructive pulmonary disease Diabetes mellitus, type 2 Diarrhea Hearing loss History of blood transfusion 01/2021 [facility] History of stroke without residual deficits OCCURRED DURING AAA REPAIR [facility] [place] 5[place]6 Y[place] 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-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 SINCE Hyperlipidemia Hypothyroidism Past myocardial infarction Port-A-Cath in place Secondary hyperparathyroidism Subclavian artery aneurysm Vocal fold paralysis, left Surgical History H/O arthroscopy of knee H/O transurethral destruction of bladder lesion 08/17/2019 History of biopsy of bladder History of cardiac cath History of carpal tunnel release RIGHT History of cataract surgery BILATERAL History of colonoscopy History of cystoscopy 01/19/2020 History of esophagogastroduodenoscopy (EGD) History of lymph node biopsy Nephrostomy status R PCN placed by IR 10/23/2021 S/P AAA (abdominal aortic aneurysm) repair Status post biopsy of kidney Family History Grandfather , in his eighties No problems noted. Grandmother , young cause unknown No problems noted. Grandfather , in his eighties No problems noted. Grandmother , did have breast cancer but in her eighties of unknown cause No problems noted. Father , He in his sixties had had three strokes and high blood pressure He had had a kidney removed perhaps from cancer Stroke Mother , in her mid seventies complications from smoking No problems noted. Daughter Age: 50 No problems noted. Daughter Age: 47 No problems noted. Daughter Age: 42 No problems noted. Brother , at age 7 of a stroke Stroke Grandmother (Maternal) Breast cancer Other No family history of adverse response to anesthesia No family history of bleeding disorder Denies family history of Ovarian cancer Prostate cancer Myocardial infarction Colorectal cancer Social History Smoking Status: Current every day smoker Tobacco Type: Cigarettes Age Started Using Tobacco: 10; packs per day: 0.5; Cigarettes Per Day: 10; Second Hand Exposure: No; Hx Alcohol Use: No Hx Substance Use: No Preferred Language: Chinese Communication Ability: Effective Visual Impairment: Partially Limited Hearing Ability: Use of Hearing Aid 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 Beliefs That Will Affect Care: None marital status: Current Living Situation: Alone current occupational status: retired How many Children do You have: 3 Feels Safe at Home: Yes Childhood Exposure to Second-Hand Smoke: Yes (Both parents smoked ) Diet Comment: Diabetic diet caffeine: Yes (Coffee tea) during the past year weight has: remained stable Dental Care, Regularly: No Physical Activity Frequency: Does not Exercise Seatbelt Use: always Sunscreen Use: No Do you think of yourself as: straight/heterosexual Assistive Devices: None Review of Systems A total of 10 systems reviewed and were otherwise negative Constitutional: + chills and + weakness Respiratory: no cough Cardiovascular: no chest pain Gastrointestinal: + nausea and + diarrhea/loose stools Neurologic: + generalized weakness Hematologic / Lymphatic: no easy bleeding Physical Exam Vital Signs Vital Signs - 24 hr 12/27/21 23:24 12/28/21 00:14 12/28/21 01:08 Temperature 37.1 C Temperature Source Temporal Artery Scan Pulse Rate 136 H 117 H Pulse Rate [Finger] Pulse Rate from SpO2 Sensor Pulse Rhythm [Finger] Pulse Strength [Finger] Respiratory Rate 20 17 Respiratory Effort / Characteristics Non-Labored Spontaneous Respiratory Depth Normal Blood Pressure 102/69 Blood Pressure [Left Arm] Blood Pressure Mean 80 Blood Pressure Mean [Left Arm] Blood Pressure Position [Left Arm] Pulse Oximetry 100 96 Oxygen Delivery Method Room Air Room Air Room Air Sepsis Recent Fever Within 48 Hours No Sepsis New/Unexplained Change in Mental Status No Sepsis Action Taken by Nursing No Action Required 12/27/21 23:59 12/28/21 00:29 12/28/21 01:30 Temperature Temperature Source Pulse Rate Pulse Rate [Finger] Pulse Rate from SpO2 Sensor Pulse Rhythm [Finger] Pulse Strength [Finger] Respiratory Rate Respiratory Effort / Characteristics Non-Labored Non-Labored Non-Labored Respiratory Depth Blood Pressure Blood Pressure [Left Arm] Blood Pressure Mean Blood Pressure Mean [Left Arm] Blood Pressure Position [Left Arm] Pulse Oximetry 99 Oxygen Delivery Method Room Air Room Air Room Air Sepsis Recent Fever Within 48 Hours Sepsis New/Unexplained Change in Mental Status Sepsis Action Taken by Nursing 12/28/21 00:32 12/28/21 00:45 12/28/21 01:00 Temperature Temperature Source Pulse Rate 115 H 118 H Pulse Rate [Finger] Pulse Rate from SpO2 Sensor Pulse Rhythm [Finger] Pulse Strength [Finger] Respiratory Rate 20 20 Respiratory Effort / Characteristics Respiratory Depth Blood Pressure 111/64 Blood Pressure [Left Arm] Blood Pressure Mean 79 Blood Pressure Mean [Left Arm] Blood Pressure Position [Left Arm] Pulse Oximetry 99 99 Oxygen Delivery Method Sepsis Recent Fever Within 48 Hours Sepsis New/Unexplained Change in Mental Status Sepsis Action Taken by Nursing 12/28/21 01:00 12/28/21 01:08 12/28/21 01:08 Temperature Temperature Source Pulse Rate 118 H 116 H Pulse Rate [Finger] Pulse Rate from SpO2 Sensor Pulse Rhythm [Finger] Pulse Strength [Finger] Respiratory Rate 17 17 Respiratory Effort / Characteristics Respiratory Depth Blood Pressure 112/71 Blood Pressure [Left Arm] Blood Pressure Mean 84 Blood Pressure Mean [Left Arm] Blood Pressure Position [Left Arm] Pulse Oximetry 98 99 Oxygen Delivery Method Sepsis Recent Fever Within 48 Hours Sepsis New/Unexplained Change in Mental Status Sepsis Action Taken by Nursing 12/28/21 01:15 12/28/21 01:15 12/28/21 01:30 Temperature Temperature Source Pulse Rate 128 H Pulse Rate [Finger] Pulse Rate from SpO2 Sensor Pulse Rhythm [Finger] Pulse Strength [Finger] Respiratory Rate 19 Respiratory Effort / Characteristics Respiratory Depth Blood Pressure 136/89 136/80 Blood Pressure [Left Arm] Blood Pressure Mean 104 98 Blood Pressure Mean [Left Arm] Blood Pressure Position [Left Arm] Pulse Oximetry 98 Oxygen Delivery Method Sepsis Recent Fever Within 48 Hours Sepsis New/Unexplained Change in Mental Status Sepsis Action Taken by Nursing 12/28/21 01:30 12/28/21 02:00 12/28/21 01:45 Temperature Temperature Source Pulse Rate 130 H Pulse Rate [Finger] Pulse Rate from SpO2 Sensor 124 H Pulse Rhythm [Finger] Pulse Strength [Finger] Respiratory Rate 11 L Respiratory Effort / Characteristics Non-Labored Respiratory Depth Blood Pressure 131/81 Blood Pressure [Left Arm] Blood Pressure Mean 97 Blood Pressure Mean [Left Arm] Blood Pressure Position [Left Arm] Pulse Oximetry 98 Oxygen Delivery Method Room Air Sepsis Recent Fever Within 48 Hours Sepsis New/Unexplained Change in Mental Status Sepsis Action Taken by Nursing 12/28/21 01:45 12/28/21 02:00 12/28/21 02:00 Temperature Temperature Source Pulse Rate 121 H 105 H Pulse Rate [Finger] Pulse Rate from SpO2 Sensor Pulse Rhythm [Finger] Pulse Strength [Finger] Respiratory Rate 20 22 Respiratory Effort / Characteristics Respiratory Depth Blood Pressure 147/85 H Blood Pressure [Left Arm] Blood Pressure Mean 105 Blood Pressure Mean [Left Arm] Blood Pressure Position [Left Arm] Pulse Oximetry 99 99 Oxygen Delivery Method Sepsis Recent Fever Within 48 Hours Sepsis New/Unexplained Change in Mental Status Sepsis Action Taken by Nursing 12/28/21 02:15 12/28/21 02:15 12/28/21 02:30 Temperature Temperature Source Pulse Rate 99 H Pulse Rate [Finger] Pulse Rate from SpO2 Sensor Pulse Rhythm [Finger] Pulse Strength [Finger] Respiratory Rate 16 Respiratory Effort / Characteristics Non-Labored Respiratory Depth Blood Pressure 119/73 Blood Pressure [Left Arm] Blood Pressure Mean 88 Blood Pressure Mean [Left Arm] Blood Pressure Position [Left Arm] Pulse Oximetry 99 99 Oxygen Delivery Method Room Air Sepsis Recent Fever Within 48 Hours Sepsis New/Unexplained Change in Mental Status Sepsis Action Taken by Nursing 12/28/21 03:07 12/28/21 03:08 12/28/21 03:40 Temperature Temperature Source Pulse Rate Pulse Rate [Finger] 110 H 117 H Pulse Rate from SpO2 Sensor Pulse Rhythm [Finger] Regular Pulse Strength [Finger] Normal Respiratory Rate 18 20 Respiratory Effort / Characteristics Non-Labored Non-Labored Non-Labored Spontaneous Respiratory Depth Normal Normal Blood Pressure Blood Pressure [Left Arm] 126/81 116/84 Blood Pressure Mean Blood Pressure Mean [Left Arm] 96 94 Blood Pressure Position [Left Arm] Sitting Pulse Oximetry 99 100 99 Oxygen Delivery Method Room Air Sepsis Recent Fever Within 48 Hours Sepsis New/Unexplained Change in Mental Status Sepsis Action Taken by Nursing 12/28/21 03:40 Temperature Temperature Source Pulse Rate Pulse Rate [Finger] Pulse Rate from SpO2 Sensor Pulse Rhythm [Finger] Pulse Strength [Finger] Respiratory Rate Respiratory Effort / Characteristics Non-Labored Spontaneous Respiratory Depth Blood Pressure Blood Pressure [Left Arm] Blood Pressure Mean Blood Pressure Mean [Left Arm] Blood Pressure Position [Left Arm] Pulse Oximetry 99 Oxygen Delivery Method Room Air Sepsis Recent Fever Within 48 Hours Sepsis New/Unexplained Change in Mental Status Sepsis Action Taken by Nursing GENERAL: Patient is awake alert in no acute distress patient is resting comfortably and showing no signs of anxiety EYES: The conjunctivae are clear. The pupils are round and reactive. EARS, NOSE, MOUTH AND THROAT: The nose is without any evidence of any deformity. Mucous membranes are moist. Tongue is midline. NECK: The neck is nontender and supple. RESPIRATORY: Normal respiratory effort is noted there is no evidence of wheezing rhonchi or rales CARDIOVASCULAR: Tachycardic normal S1 normal S2. A port in the right anterior chest wall GASTROINTESTINAL: The abdomen is soft. Abdomen is nontender. PELVIS: The Pelvis is stable. No tenderness to palpation is noted. BACK: No midline tenderness or or step-off noted range of motion in flexion extension as well as rotation no signs of muscle spasm noted; a nephrostomy tube present in the right flank MUSCULOSKELETAL/EXTREMITIES: There is no evidence of gross deformity full range of motion is noted in the hips and shoulders. SKIN: There is no obvious evidence of any rash. There are no petechiae, pallor or cyanosis noted. Abrasions to the anterior shins bilaterally NEUROLOGIC: Patient is awake alert and oriented x3 strength is symmetric Course Reevaluation(s) Reevaluation #1: Patient was started on IV fluids. Patient has a history of pancytopenia patient is not significantly anemic. Patient has an elevated creatinine which seems to be at baseline. Case was discussed with the hospitalist for admission Time: 03:44 Medical Decision Making Medical Records Attestation: I reviewed the patient's medical records. Home Medications Current Medication List: was personally reviewed by me Laboratory Data Attestation: I reviewed the patient's lab results. Result diagrams: 12/28/21 00:05 12/28/21 00:05 Lab Results 12/28/21 12/28/21 12/28/21 Range/Units 00:05 00:05 00:05 WBC 0.39 L* (4.8-10.8) K/ul RBC 2.75 L (4.63-6.08) M/uL Hgb 8.2 L (14.0-18.0) g/dl Hct 25.5 L (40.1-51.0) % MCV 92.7 (80.0-100.0) fL MCH 29.8 (25.0-34.0) pg MCHC 32.2 (32.0-36.0) g/dL RDW Std Deviation 58.2 H (36.4-46.3) fL RDW Coeff of Josie 16.9 H (11.5-14.5) % Plt Count 12 L* (130-400) K/uL Immature Gran % (Auto) Cancelled Neut % (Auto) Cancelled Lymph % (Auto) Cancelled [place] % (Auto) Cancelled Eos % (Auto) Cancelled Baso % (Auto) Cancelled Neut # (Auto) Cancelled Lymph # (Auto) Cancelled [place] # (Auto) Cancelled Eos # (Auto) Cancelled Baso # (Auto) Cancelled Immature Gran # (Auto) Cancelled Neutrophils % (Manual) Cancelled Band Neutrophils % Cancelled Lymphocytes % (Manual) Cancelled Prolymphocyte % Cancelled Reactive Lymphs % (Man) Cancelled Monocytes % (Manual) Cancelled Eosinophils % (Manual) Cancelled Basophils % (Manual) Cancelled Metamyelocytes % (Man) Cancelled Myelocytes % (Man) Cancelled Promyelocytes % (Man) Cancelled Blast Cells % (Manual) Cancelled Plasma Cell % (Manual) Cancelled Other Cells % Cancelled Nucleated RBC % Cancelled Neutrophils # (Manual) Cancelled Band Neutrophils # Cancelled Total Absolute Neuts Cancelled Lymphocytes # (Manual) Cancelled Prolymphocyte # Cancelled Reactive Lymphs # Cancelled Total Abs Lymphocytes Cancelled Monocytes # (Manual) Cancelled Eosinophils # (Manual) Cancelled Basophils # (Manual) Cancelled Metamyelocytes # (Man) Cancelled Myelocytes # (Manual) Cancelled Promyelocytes # (Man) Cancelled Blast Cells # (Man) Cancelled Plasma Cell # (Manual) Cancelled Other Cells # Cancelled Nucleated RBCs # (Man) Cancelled Hypersegmented Neuts Cancelled Hyposegmented Neuts Cancelled Hypogranular Neuts Cancelled Large Granular Lymphs Cancelled # Lrg Granular Lymphs Cancelled Hairy Cells Cancelled Smudge Cells Cancelled Toxic Granulation Cancelled Toxic Vacuolation Cancelled Dohle Bodies Cancelled Ludin Rods Cancelled Hypogranular Platelets Cancelled Clumped Platelets Cancelled Giant Platelets Cancelled Platelet Satelliting Cancelled RBC Morphology Cancelled Polychromasia Cancelled Hypochromasia Cancelled Poikilocytosis Cancelled Basophilic Stippling Cancelled Anisocytosis Cancelled Microcytosis Cancelled Macrocytosis Cancelled Spherocytes Cancelled Pappenheimer Bodies Cancelled Sickle Cells Cancelled Target Cells Cancelled Tear Drop Cells Cancelled Ovalocytes Cancelled Stomatocytes Cancelled Barrera-Sayre Bodies Cancelled Echinocytes Cancelled Acanthocytes (Spur) Cancelled Rouleaux Cancelled RBC Agglutinates Cancelled Schistocytes Cancelled Sezary Cell Cancelled PT 10.9 (9.0-12.0) Seconds INR 1.0 (0.9-1.1) APTT 44.7 H (21.0-31.0) Seconds PTT Ratio 1.6 Sodium 141 (136-145) mmol/L Potassium 4.0 (3.5-5.1) mmol/L Chloride 117 H (98-107) mmol/L Carbon Dioxide 12 L (21-32) mmol/L Anion Gap 12 H (3-11) BUN 67 H (6-23) mg/dl Creatinine 5.10 H* (0.6-1.4) mg/dl Est Cr Clr Drug Dosing Not Reportable Est GFR ( Amer) 11.9 ml/min Est GFR (Non-Af Amer) 10.3 ml/min BUN/Creatinine Ratio 13.1 (10-20) Glucose 160 H (70-99(Fasting)) mg/dl Lactate (0.4-2.0) mmol/L Calcium 8.2 L (8.5-10.1) mg/dl Magnesium 1.4 L (1.7-2.4) mg/dl Total Bilirubin 0.5 (0.2-1.0) mg/dl AST 13 (13-39) U/L ALT 12 (7-52) U/L Alkaline Phosphatase 77 (34-104) U/L Total Protein 5.4 L (6.0-8.3) gm/dl Albumin 3.0 L (3.4-5.0) gm/dl Globulin 2.4 L (2.5-4.0) gm/dl Albumin/Globulin Ratio 1.3 (0.9-2) Urine Color Urine Appearance (Clear) Urine pH (4.5-7.5) Ur Specific [place] (1.000-1.030) Urine Protein (Negative) Urine Glucose (UA) (Negative) Urine Ketones (Negative) Urine Blood (Negative) Urine Nitrite (Negative) Urine Bilirubin (Negative) Urine Urobilinogen (Negative) Ur Leukocyte Esterase (Negative) Urine WBC (Auto) (0-5) /hpf Urine RBC (Auto) (0-4) /hpf U Hyaline Cast (Auto) (0-5) /lpf U Epithel Cells (Auto) (0-5) /lpf Urine Bacteria (Auto) (Negative) SARS-CoV-2, RNA, NAAT (NEGATIVE) Blood Parasites ID Cancelled Blood Type Antibody Screen 12/28/21 12/28/21 12/28/21 Range/Units 00:11 00:11 00:19 WBC (4.8-10.8) K/ul RBC (4.63-6.08) M/uL Hgb (14.0-18.0) g/dl Hct (40.1-51.0) % MCV (80.0-100.0) fL MCH (25.0-34.0) pg MCHC (32.0-36.0) g/dL RDW Std Deviation (36.4-46.3) fL RDW Coeff of Josie (11.5-14.5) % Plt Count (130-400) K/uL Immature Gran % (Auto) Neut % (Auto) Lymph % (Auto) [place] % (Auto) Eos % (Auto) Baso % (Auto) Neut # (Auto) Lymph # (Auto) [place] # (Auto) Eos # (Auto) Baso # (Auto) Immature Gran # (Auto) Neutrophils % (Manual) Band Neutrophils % Lymphocytes % (Manual) Prolymphocyte % Reactive Lymphs % (Man) Monocytes % (Manual) Eosinophils % (Manual) Basophils % (Manual) Metamyelocytes % (Man) Myelocytes % (Man) Promyelocytes % (Man) Blast Cells % (Manual) Plasma Cell % (Manual) Other Cells % Nucleated RBC % Neutrophils # (Manual) Band Neutrophils # Total Absolute Neuts Lymphocytes # (Manual) Prolymphocyte # Reactive Lymphs # Total Abs Lymphocytes Monocytes # (Manual) Eosinophils # (Manual) Basophils # (Manual) Metamyelocytes # (Man) Myelocytes # (Manual) Promyelocytes # (Man) Blast Cells # (Man) Plasma Cell # (Manual) Other Cells # Nucleated RBCs # (Man) Hypersegmented Neuts Hyposegmented Neuts Hypogranular Neuts Large Granular Lymphs # Lrg Granular Lymphs Hairy Cells Smudge Cells Toxic Granulation Toxic Vacuolation Dohle Bodies Ludin Rods Hypogranular Platelets Clumped Platelets Giant Platelets Platelet Satelliting RBC Morphology Polychromasia Hypochromasia Poikilocytosis Basophilic Stippling Anisocytosis Microcytosis Macrocytosis Spherocytes Pappenheimer Bodies Sickle Cells Target Cells Tear Drop Cells Ovalocytes Stomatocytes Barrera-Sayre Bodies Echinocytes Acanthocytes (Spur) Rouleaux RBC Agglutinates Schistocytes Sezary Cell PT (9.0-12.0) Seconds INR (0.9-1.1) APTT (21.0-31.0) Seconds PTT Ratio Sodium (136-145) mmol/L Potassium (3.5-5.1) mmol/L Chloride (98-107) mmol/L Carbon Dioxide (21-32) mmol/L Anion Gap (3-11) BUN (6-23) mg/dl Creatinine (0.6-1.4) mg/dl Est Cr Clr Drug Dosing Est GFR ( Amer) ml/min Est GFR (Non-Af Amer) ml/min BUN/Creatinine Ratio (10-20) Glucose (70-99(Fasting)) mg/dl Lactate 0.7 (0.4-2.0) mmol/L Calcium (8.5-10.1) mg/dl Magnesium (1.7-2.4) mg/dl Total Bilirubin (0.2-1.0) mg/dl AST (13-39) U/L ALT (7-52) U/L Alkaline Phosphatase (34-104) U/L Total Protein (6.0-8.3) gm/dl Albumin (3.4-5.0) gm/dl Globulin (2.5-4.0) gm/dl Albumin/Globulin Ratio (0.9-2) Urine Color Urine Appearance (Clear) Urine pH (4.5-7.5) Ur Specific [place] (1.000-1.030) Urine Protein (Negative) Urine Glucose (UA) (Negative) Urine Ketones (Negative) Urine Blood (Negative) Urine Nitrite (Negative) Urine Bilirubin (Negative) Urine Urobilinogen (Negative) Ur Leukocyte Esterase (Negative) Urine WBC (Auto) (0-5) /hpf Urine RBC (Auto) (0-4) /hpf U Hyaline Cast (Auto) (0-5) /lpf U Epithel Cells (Auto) (0-5) /lpf Urine Bacteria (Auto) (Negative) SARS-CoV-2, RNA, NAAT NEGATIVE (NEGATIVE) Blood Parasites ID Blood Type O Positive Antibody Screen NEGATIVE 12/28/21 Range/Units 02:31 WBC (4.8-10.8) K/ul RBC (4.63-6.08) M/uL Hgb (14.0-18.0) g/dl Hct (40.1-51.0) % MCV (80.0-100.0) fL MCH (25.0-34.0) pg MCHC (32.0-36.0) g/dL RDW Std Deviation (36.4-46.3) fL RDW Coeff of Josie (11.5-14.5) % Plt Count (130-400) K/uL Immature Gran % (Auto) Neut % (Auto) Lymph % (Auto) [place] % (Auto) Eos % (Auto) Baso % (Auto) Neut # (Auto) Lymph # (Auto) [place] # (Auto) Eos # (Auto) Baso # (Auto) Immature Gran # (Auto) Neutrophils % (Manual) Band Neutrophils % Lymphocytes % (Manual) Prolymphocyte % Reactive Lymphs % (Man) Monocytes % (Manual) Eosinophils % (Manual) Basophils % (Manual) Metamyelocytes % (Man) Myelocytes % (Man) Promyelocytes % (Man) Blast Cells % (Manual) Plasma Cell % (Manual) Other Cells % Nucleated RBC % Neutrophils # (Manual) Band Neutrophils # Total Absolute Neuts Lymphocytes # (Manual) Prolymphocyte # Reactive Lymphs # Total Abs Lymphocytes Monocytes # (Manual) Eosinophils # (Manual) Basophils # (Manual) Metamyelocytes # (Man) Myelocytes # (Manual) Promyelocytes # (Man) Blast Cells # (Man) Plasma Cell # (Manual) Other Cells # Nucleated RBCs # (Man) Hypersegmented Neuts Hyposegmented Neuts Hypogranular Neuts Large Granular Lymphs # Lrg Granular Lymphs Hairy Cells Smudge Cells Toxic Granulation Toxic Vacuolation Dohle Bodies Ludin Rods Hypogranular Platelets Clumped Platelets Giant Platelets Platelet Satelliting RBC Morphology Polychromasia Hypochromasia Poikilocytosis Basophilic Stippling Anisocytosis Microcytosis Macrocytosis Spherocytes Pappenheimer Bodies Sickle Cells Target Cells Tear Drop Cells Ovalocytes Stomatocytes Barrera-Sayre Bodies Echinocytes Acanthocytes (Spur) Rouleaux RBC Agglutinates Schistocytes Sezary Cell PT (9.0-12.0) Seconds INR (0.9-1.1) APTT (21.0-31.0) Seconds PTT Ratio Sodium (136-145) mmol/L Potassium (3.5-5.1) mmol/L Chloride (98-107) mmol/L Carbon Dioxide (21-32) mmol/L Anion Gap (3-11) BUN (6-23) mg/dl Creatinine (0.6-1.4) mg/dl Est Cr Clr Drug Dosing Est GFR ( Amer) ml/min Est GFR (Non-Af Amer) ml/min BUN/Creatinine Ratio (10-20) Glucose (70-99(Fasting)) mg/dl Lactate (0.4-2.0) mmol/L Calcium (8.5-10.1) mg/dl Magnesium (1.7-2.4) mg/dl Total Bilirubin (0.2-1.0) mg/dl AST (13-39) U/L ALT (7-52) U/L Alkaline Phosphatase (34-104) U/L Total Protein (6.0-8.3) gm/dl Albumin (3.4-5.0) gm/dl Globulin (2.5-4.0) gm/dl Albumin/Globulin Ratio (0.9-2) Urine Color Yellow Urine Appearance Clear (Clear) Urine pH 5.5 (4.5-7.5) Ur Specific [place] 1.015 (1.000-1.030) Urine Protein 3+ H (Negative) Urine Glucose (UA) Trace H (Negative) Urine Ketones Negative (Negative) Urine Blood 3+ H (Negative) Urine Nitrite Negative (Negative) Urine Bilirubin Negative (Negative) Urine Urobilinogen Negative (Negative) Ur Leukocyte Esterase Trace H (Negative) Urine WBC (Auto) 5-10 H (0-5) /hpf Urine RBC (Auto) >30 H (0-4) /hpf U Hyaline Cast (Auto) 1-5 (0-5) /lpf U Epithel Cells (Auto) >30 H (0-5) /lpf Urine Bacteria (Auto) Negative (Negative) SARS-CoV-2, RNA, NAAT (NEGATIVE) Blood Parasites ID Blood Type Antibody Screen Imaging Data Attestation: I personally reviewed and interpreted this imaging study as follows: ECG Data Attestation: I personally reviewed and interpreted this ECG as follows: Additional Comments: EKG interpreted by me sinus tachycardia rate of 125, left axis deviation, inferior infarct age-indeterminate no obvious ST segment elevation or depression MDM Narrative Medical decision making differential diagnosis includes sepsis, metabolic derangement, dehydration, anemia infectious diarrhea. Plan is to check sepsis protocol. This is a 76-year-old male who presents with pancytopenia is currently receiving treatment for bladder cancer he has been having diarrhea and generalized weakness. Patient is pancytopenic he has chronic renal insufficiency his electrolytes seem to have improved from prior. Patient will be admitted for generalized weakness and pancytopenia. The case was discussed with the hospitalist who understands the evaluation Impression & Plan Weakness, Diarrhea, Pancytopenia, Renal failure Discharge Plan Visit Data Chief Complaint: Weakness Stated Complaint: WEAKNESS, PAIN ALL OVER ED Provider: Harpreet Gunter Discharge Problem: Weakness, Diarrhea, Pancytopenia, Renal failure Patient Disposition: Admitted As Inpatient Forms Stand Alone Forms: My [facility] Prescriptions Prescriptions: No Action metoprolol succinate 100 mg tablet extended release 24 hr 100 mg PO QPM Qty: 90 3RF Label Comments: 08/14/19 - PT STATES CURRENTLY NOT TAKING MEDICATION rosuvastatin 5 mg tablet 5 mg PO QPM Qty: 90 3RF Trulicity 0.75 mg/0.5 mL pen injector 0.75 mg SQ WEEKLY Qty: 2 0RF Rx Instructions: PT TAKES ON TUESDAY albuterol sulfate [Ventolin HFA] 90 mcg/actuation HFA aerosol inhaler 2 puff inhalation QID PRN (Reason: shortness of breath or wheezing) Qty: 18 2RF levothyroxine [Synthroid] 100 mcg tablet 100 mcg PO QAM Qty: 90 3RF calcitriol 0.25 mcg capsule 0.25 mcg PO QPM fluticasone propionate 50 mcg/actuation spray,suspension 2 spray intranasal DAILY PRN (Reason: Dyspnea) Rx Instructions: uses for sob cinacalcet 30 mg Tablet 30 mg PO 3XWK Rx Instructions: tue cetirizine 10 mg Capsule 10 mg PO QAM Probiotic 3 billion cell Capsule 3,000 mmu cells PO QAM Rx Instructions: administer with a meal pantoprazole [Protonix] 40 mg tablet,delayed release (DR/EC) 40 mg PO BID Qty: 60 0RF tamsulosin 0.4 mg Capsule 0.4 mg PO BID ferrous sulfate 325 mg (65 mg iron) tablet 325 mg PO 3XWK Rx Instructions: Take one tablet Tuesday oxybutynin chloride 5 mg tablet extended release 24hr 5 mg PO QAM allopurinol 300 mg tablet 300 mg PO QAM olanzapine 2.5 mg Tablet 2.5 mg PO DIRECTED Rx Instructions: take for 4 nights after chemo Carboplatin Tabs 1 tab PO .NAUSEA PRN (Reason: prn after chemo) Gemcitabine Pill 1 tab PO DIRECTED Referrals Referrals: Hilda Berry MD [Primary Care Provider] -
[2021-12-28 00:43] LABS: Partial Thromboplastin Ratio 1.6; Partial Thromboplastin Time 44.7 Seconds (21.0-31.0); Prothrombin Time 10.9 Seconds (9.0-12.0)
[2021-12-28 00:53] LABS: Hematocrit (blood only) 25.5 % (40.1-51.0); Hemoglobin 8.2 g/dl (14.0-18.0); Mean Corpuscular Hemoglobin 29.8 pg (25.0-34.0); Mean Corpuscular Hgb Conc 32.2 g/dL (32.0-36.0); Mean Corpuscular Volume 92.7 fL (80.0-100.0); Platelet Count 12 K/uL (130-400); RDW Coefficient of Variation 16.9 % (11.5-14.5); RDW Standard Deviation 58.2 fL (36.4-46.3); Red Blood Count 2.75 M/uL (4.63-6.08); White Blood Count 0.39 K/ul (4.8-10.8)
[2021-12-28 01:21] LABS: Alanine Aminotransferase 12 U/L (7-52); Albumin Globulin Ratio 1.3 (0.9-2); Alkaline Phosphatase 77 U/L (34-104); Anion Gap 12 (3-11); Aspartate Aminotransferase 13 U/L (13-39); BUN Creatinine Ratio 13.1 (10-20); Bilirubin,Total 0.5 mg/dl (0.2-1.0); Blood Urea Nitrogen 67 mg/dl (6-23); Calcium 8.2 mg/dl (8.5-10.1); Carbon Dioxide 12 mmol/L (21-32); Chloride 117 mmol/L (98-107); Globulin 2.4 gm/dl (2.5-4.0); Glucose 160 mg/dl (70-99(Fasting)); Magnesium 1.4 mg/dl (1.7-2.4); Sodium 141 mmol/L (136-145); Total Protein 5.4 gm/dl (6.0-8.3)
[2021-12-28 01:32] LABS: Est GFR (African American) 11.9 ml/min; Est GFR (Non-African American) 10.3 ml/min
[2021-12-28 02:50] LABS: Appearance Urine Clear (Clear); Bacteria Urine Automated Negative (Negative); Bilirubin Urine Negative (Negative); Blood Urine 3+ (Negative); Color Urine Yellow; Epithelial Cell Urine Auto >30 /lpf (0-5); Glucose Urine UA Trace (Negative); Ketones Urine Negative (Negative); Leukocyte Esterase Urine Trace (Negative); Nitrite Urine Negative (Negative); Protein Urine 3+ (Negative); RBC Urine Automated >30 /hpf (0-4); Specific Gravity Urine 1.015 (1.000-1.030); Urobilinogen Urine Negative (Negative); pH Urine 5.5 (4.5-7.5)
--- NOTE | 2021-12-28 03:11 | History & Physical Report ---
Date of Service December 28, 2021 Assessment & Plan (1) Sepsis: Plan: 76 year old male w/ bladder cancer w/ lung mets on chemotherapy, BPH, CAD, HTN, HLD, DM2, GI bleed, CKD4, and recent admission due to obstructive urinary symptoms (11/29-12/04) who presents due to several days of generalized weakness, diarrhea. Weakness/diarrhea meeting 2 out of 4 SIRS criteria Likely that weakness is more related to cancer/chemo, chronically low blood counts Diarrhea reportedly somewhat worse as of late, but has been a chronic issue since about August However, with meeting SIRS criteria (tachycardic, leukopenia) he is irene hnically septic and with a low white count will have to initiate empiric antibiotics Initiate daptomycin due to current kidney function, no respiratory symptoms at this time if he did develop respiratory symptoms could consider linezolid instead Initiate cefepime Blood cultures obtained in ED prior to antibiotic initiation if negative at 48 hours can discontinue antibiotics Stool PCR testing ordered Admit to med telemetry PT OT ordered Thrombocytopenia Platelet count at 12 on arrival With technically meeting sepsis criteria, will initiate 1 unit platelet transfusion at this time Blood consent obtained and in chart Recheck with a.m. labs Leukopenia Neutropenic precautions Differential added onto CBC Neupogen SQ ordered Recheck with a.m. labs Anemia Hemoglobin 8.2 Continue home ferrous sulfate Continue to monitor, transfuse for hemoglobin under 7 Hypomagnesemia Magnesium 1.4 on admission Replete with 2 g mag sulfate Recheck with a.m. labs Diabetes Hold home meds Glycemic consult CKD stage V Monitor kidney function Renally dose medications, avoid nephrotoxins Gout Continue home allopurinol Allergic rhinitis Continue home cetirizine and fluticasone nasal spray Hyperparathyroidism Continue Cinacalcet Hypothyroidism Continue home levothyroxine Hypertension/CAD/hyperlipidemia Continue home metoprolol and rosuvastatin BPH Continue home tamsulosin Overactive bladder Continue home oxybutynin DVT prophylaxis: SCDs, chemoprophylaxis contraindicated in the setting of thrombocytopenia Diet: DM 2 Dispo: Admit to med telemetry, PT/OT to assess needs for home CODE STATUS: Full (2) Pancytopenia: (3) Chemotherapy-induced fatigue: (4) CKD (chronic kidney disease) stage 5, GFR less than 15 ml/min: (5) Hypomagnesemia: (6) Diarrhea: (7) Hypertension: (8) 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: (9) Diabetes mellitus, type 2: (10) Hypothyroidism: (11) Hyperlipidemia: (12) CAD (coronary atherosclerotic disease): History of Present Illness Primary Care Provider: Hilda Berry MD 76 year old male w/ bladder cancer w/ lung mets on chemotherapy, BPH, CAD, HTN, HLD, DM2, GI bleed, CKD4, and recent admission due to obstructive urinary symptoms (11/29-12/04) who presents due to several days of generalized weakness, diarrhea. He was seen in the emergency department 3 days ago for similar symptoms. He was found to be anemic with a hemoglobin of 6.7 and thus, received transfusion with 1 unit PRBCs. He was discharged home after transfusion with his oncologist on board with the plan. However, weakness has continued at home as well as diarrhea. He comes in with family as he feels he is unable to function at home. Denies chest pain, palpitations, nausea, vomiting, fever, chills, shortness of breath, coughing, abdominal pain, rashes, headache, dizziness, urinary symptoms. Upon arrival to to the ED today, patient found to be tachycardic up to the 130s at times. Vital signs within normal limits otherwise. Lab work significant for pancytopenia with white blood count of 0.39, hemoglobin 8.2, platelet count 12. BUN of 67 and creatinine of 5.10. Magnesium 1.4. Urinalysis with 3+ blood, trace leuk esterase, negative nitrites. Chest x-ray negative. Allergies Allergy/AdvReac Type Severity Reaction Status Date / Time Iodinated Contrast Media AdvReac Intermediate Hypertensio Verified 12/28/21 00:51 n atorvastatin [From Lipitor] AdvReac Mild muscle Verified 12/28/21 00:51 aches Home Medications Medication Instructions Recorded Confirmed Type dulaglutide 0.75 mg/0.5 mL 0.75 mg (0.5 mL) subcut WEEKLY #2 09/19/19 12/28/21 Rx subcutaneous pen injector mL (Trulicity) albuterol sulfate 90 mcg/actuation 2 puff inhalation QID PRN 05/22/20 12/28/21 Rx aerosol inhaler (Ventolin HFA) shortness of breath or wheezing #18 grams calcitriol 0.25 mcg capsule 0.25 mcg PO QPM 07/17/21 12/28/21 History metoprolol succinate 100 mg 100 mg PO QPM #90 tabs 07/30/21 12/28/21 Rx tablet,extended release 24 hr levothyroxine 100 mcg tablet 100 mcg PO QAM #90 tabs 10/12/21 12/28/21 Rx (Synthroid) cetirizine 10 mg capsule 10 mg PO QAM 11/16/21 12/28/21 History cinacalcet 30 mg tablet 30 mg PO 3XWK 11/16/21 12/28/21 History fluticasone propionate 50 2 spray intranasal DAILY PRN 11/16/21 12/28/21 History mcg/actuation nasal Dyspnea spray,suspension lactobacillus combination no.4 3 3,000 mmu cells PO QAM 11/16/21 12/28/21 History billion cell capsule (Probiotic) pantoprazole 40 mg tablet,delayed 40 mg PO BID #60 tabs 11/19/21 12/28/21 Rx release (Protonix) allopurinol 300 mg tablet 300 mg PO QAM 11/29/21 12/28/21 History ferrous sulfate 325 mg (65 mg 325 mg PO 3XWK 11/29/21 12/28/21 History iron) tablet oxybutynin chloride 5 mg 5 mg PO QAM 11/29/21 12/28/21 History tablet,extended release 24 hr tamsulosin 0.4 mg capsule 0.4 mg PO BID 11/29/21 12/28/21 History rosuvastatin 5 mg tablet 5 mg PO QPM #90 tabs 12/10/21 12/28/21 Rx Carboplatin Tabs 1 tab PO .NAUSEA PRN prn after 12/24/21 12/28/21 History chemo Gemcitabine Pill 1 tab PO DIRECTED 12/24/21 12/28/21 History olanzapine 2.5 mg tablet 2.5 mg PO DIRECTED 12/24/21 12/28/21 History Past Med/Surg History Medical History Acid reflux Acute duodenal ulcer with hemorrhage Adenomatous polyp of colon Atrial fibrillation with rapid ventricular response Benign essential hypertension Benign prostatic hyperplasia 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 Blood loss anemia CAD (coronary atherosclerotic disease) Chronic kidney disease STAGE IV Chronic obstructive pulmonary disease Diabetes mellitus, type 2 Diarrhea Hearing loss History of blood transfusion 01/2021 [facility] History of stroke without residual deficits OCCURRED DURING AAA REPAIR [facility] 5-6 YRS 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-NO ISSUES SINCE Hyperlipidemia Hypothyroidism Past myocardial infarction Port-A-Cath in place Secondary hyperparathyroidism Subclavian artery aneurysm Vocal fold paralysis, left Surgical History H/O arthroscopy of knee H/O transurethral destruction of bladder lesion 08/17/2019 History of biopsy of bladder History of cardiac cath History of carpal tunnel release RIGHT History of cataract surgery BILATERAL History of colonoscopy History of cystoscopy 01/19/2020 History of esophagogastroduodenoscopy (EGD) History of lymph node biopsy Nephrostomy status R PCN placed by IR 10/23/2021 S/P AAA (abdominal aortic aneurysm) repair Status post biopsy of kidney Family History Grandfather , in his eighties No problems noted. Grandmother , young cause unknown No problems noted. Grandfather , in his eighties No problems noted. Grandmother , did have breast cancer but in her eighties of unknown cause No problems noted. Father , He in his sixties had had three strokes and high blood pressure He had had a kidney removed perhaps from cancer Stroke Mother , in her mid seventies complications from smoking No problems noted. Daughter Age: 50 No problems noted. Daughter Age: 47 No problems noted. Daughter Age: 42 No problems noted. Brother , at age 7 of a stroke Stroke Grandmother (Maternal) Breast cancer Other No family history of adverse response to anesthesia No family history of bleeding disorder Denies family history of Ovarian cancer Prostate cancer Myocardial infarction Colorectal cancer Social History Smoking Status: Current every day smoker Tobacco Type: Cigarettes Age Started Using Tobacco: 10; packs per day: 0.5; Cigarettes Per Day: 10; Second Hand Exposure: No; Do You Dip or Chew Tobacco: No; Hx Alcohol Use: No Hx Substance Use: No Preferred Language: Portuguese Communication Ability: Effective Visual Impairment: Partially Limited Hearing Ability: Use of Hearing Aid Assistant Credit Manager Required: No Beliefs That Will Affect Care: None marital status: Current Living Situation: Significant Other current occupational status: retired How many Children do You have: 3 Other Information That Helps Us Care for You: No Feels Safe at Home: Yes Safety Concerns: Feels Safe At This Time Childhood Exposure to Second-Hand Smoke: Yes (Both parents smoked ) Diet Comment: Diabetic diet caffeine: Yes (Coffee tea) during the past year weight has: remained stable Dental Care, Regularly: No Physical Activity Frequency: Does not Exercise Seatbelt Use: always Sunscreen Use: No Do you think of yourself as: straight/heterosexual Assistive Devices: None Review of Systems Review of Systems: Per HPI Physical Exam Physical Exam: GENERAL: A&Ox3. NAD. HEENT: PERRL, EOMI. Moist mucous membranes. NECK: No JVD. No lymphadenopathy. CHEST/LUNGS: CTAB A/P. No crackles, wheezes, rales, rhonchi. Port in right anterior chest wall, C/D/I. HEART: Tachycardic, regular rhythm. No m/g/r. No carotid bruits. ABDOMEN: NT/ND, soft. BS+ x4 EXTREMITIES: No cyanosis, no clubbing, no edema SKIN: Warm and dry. No rashes or lesions. PSYCHIATRIC: Euthymic affect, no SI, no pressured speech, no hallucinations NEUROLOGIC: No FND. CN II-XII grossly intact. Results & Data Results & Data ([facility]) Vital Signs (Past 12 Hours) Vital Signs Temp Pulse Pulse Resp BP BP Pulse Ox 12/28/21 03:08 110 H 18 126/81 100 12/28/21 03:07 99 12/28/21 02:30 99 12/28/21 02:15 99 H 16 99 12/28/21 02:15 119/73 12/28/21 02:00 105 H 22 99 12/28/21 02:00 147/85 H 12/28/21 01:45 121 H 20 99 12/28/21 01:45 131/81 12/28/21 02:00 12/28/21 01:30 130 H 11 L 98 12/28/21 01:30 136/80 12/28/21 01:15 128 H 19 98 12/28/21 01:15 136/89 12/28/21 01:08 112/71 12/28/21 01:08 116 H 17 99 12/28/21 01:00 118 H 17 98 12/28/21 01:00 111/64 12/28/21 00:45 118 H 20 99 12/28/21 00:32 115 H 20 99 12/28/21 01:30 12/28/21 00:29 12/27/21 23:59 99 12/28/21 01:08 12/28/21 00:14 117 H 17 96 12/27/21 23:24 37.1 C 136 H 20 102/69 100 O2 Del Method 12/28/21 03:08 Room Air 12/28/21 03:07 12/28/21 02:30 Room Air 12/28/21 02:15 12/28/21 02:15 12/28/21 02:00 12/28/21 02:00 12/28/21 01:45 12/28/21 01:45 12/28/21 02:00 Room Air 12/28/21 01:30 12/28/21 01:30 12/28/21 01:15 12/28/21 01:15 12/28/21 01:08 12/28/21 01:08 12/28/21 01:00 12/28/21 01:00 12/28/21 00:45 12/28/21 00:32 12/28/21 01:30 Room Air 12/28/21 00:29 Room Air 12/27/21 23:59 Room Air 12/28/21 01:08 Room Air 12/28/21 00:14 Room Air 12/27/21 23:24 Room Air Code Status & VTE Plan VTE Prophylaxis Plan VTE Prophylaxis will be ordered: Yes Supervising Physician Co-Signing Physician Notes Attending addendum: I have physically seen this patient, have supervised the medical residents activities, and agree with the H&P unless as otherwise noted. Assessment and Plan: Sepsis/neutropenic infection/weakness/diarrhea- WBC 0.39 on admission, added differential to develop ANC Give Neupogen 480 mcg subcu x1 now Empiric broad-spectrum IV antibiotics with daptomycin IV and cefepime IV Follow urine culture sensitivity Follow blood culture sensitivities Stool PCR testing Gentle IV fluid rehydration Serial CBC with differential, chemistry profile and magnesium levels Hypomagnesemia- Magnesium 1.4, likely secondary to stool loss Give IV replacement recheck laboratories in a.m. Diabetes mellitus- Holding oral medications Glycemic consult ordered by resident Remaining orders and notations as noted Resident Activity Tracking Resident Involvement: Resident Care Provided Care Provided: Adult Hospital Medicine (1) Hyperlipidemia Hyperlipidemia type: mixed hyperlipidemia Qualified Code(s): E78.2 - Mixed hyperlipidemia (2) Hypothyroidism Hypothyroidism type: acquired Qualified Code(s): E03.9 - Hypothyroidism, unspecified
[2021-12-28] MEDS ORDERED: [UNRECOGNIZED DRUG - OTHER] PO SCH (04:40)
[2021-12-28] MEDS ORDERED: OLANZAPINE 2.5 MG TAB PO SCH (04:40)
[2021-12-28] MEDS ORDERED: CARBOPLATIN PO PRN (04:40)
[2021-12-28] MEDS ORDERED: PHARMACY GLYCEMIC MGMT CONSULT PRN (04:40)
[2021-12-28] MEDS ORDERED: SODIUM CHLORIDE 0.9% 1000ML 1,000 ML IV SCH (04:40)
[2021-12-28] MEDS ORDERED: ONDANSETRON INJ 2 MG/ML 2 ML VIAL IV PRN (04:40)
[2021-12-28] MEDS ORDERED: FLUTICASONE PROPIONATE NA SPR 16 GM BTL PRN (04:40)
[2021-12-28] MEDS ORDERED: ALBUTEROL HFA 8 GM INHALER INH PRN (04:40)
[2021-12-28] MEDS ORDERED: POLYETHYLENE (MIRALAX) 17 GM PACK PO PRN (04:40)
[2021-12-28] MEDS ORDERED: CEFEPIME 2,000 MG in SYRINGE 0 ML IV STA (05:12)
[2021-12-28] MEDS: MAGNESIUM SULFATE / D5W 1 GM/100 ML BAG IV SCH ×2 (05:24→10:17)
[2021-12-28] MEDS ORDERED: CEFEPIME 2,000 MG/20 ML VIAL ONE (05:28)
[2021-12-28] MEDS ORDERED: GLUCOSE 10 TAB/TUBE PO PRN (05:30)
[2021-12-28] MEDS ORDERED: GLUCAGON FOR INJ 1 MG VIAL IM PRN (05:30)
[2021-12-28] MEDS ORDERED: GLUCOSE 40% GEL 15 GM TUBE PO PRN (05:30)
[2021-12-28] MEDS ORDERED: DEXTROSE 50% 50 ML SYRINGE IV PRN (05:30)
[2021-12-28] MEDS ORDERED: DAPTOmycin 350 MG in SYRINGE 0 ML IV SCH (06:00)
--- NOTE | 2021-12-28 06:14 | Billing Data ---
Date of Service December 28, 2021 Coding Level of Care Code 62428 Initial Inpt Care Lvl 3
[2021-12-28 06:24] LABS: Hematocrit (blood only) 24.2 % (40.1-51.0); Hemoglobin 7.9 g/dl (14.0-18.0); Mean Corpuscular Hemoglobin 29.8 pg (25.0-34.0); Mean Corpuscular Hgb Conc 32.6 g/dL (32.0-36.0); Mean Corpuscular Volume 91.3 fL (80.0-100.0); Platelet Count 12 K/uL (130-400); RDW Coefficient of Variation 16.8 % (11.5-14.5); RDW Standard Deviation 57.5 fL (36.4-46.3); Red Blood Count 2.65 M/uL (4.63-6.08); White Blood Count 0.33 K/ul (4.8-10.8)
[2021-12-28] MEDS ORDERED: LEVOTHYROXINE SODIUM 100 MCG TABLET PO SCH (06:30)
[2021-12-28 06:49] LABS: Albumin Globulin Ratio 1.2 (0.9-2); Albumin Level 2.8 gm/dl (3.4-5.0); BUN Creatinine Ratio 13.4 (10-20); Bilirubin,Total 0.5 mg/dl (0.2-1.0); Calcium 8.1 mg/dl (8.5-10.1); Creatinine Clr Calc Pharmacy 12.1 ml/min; Est GFR (African American) 12.3 ml/min; Est GFR (Non-African American) 10.6 ml/min; Globulin 2.3 gm/dl (2.5-4.0); Magnesium 1.6 mg/dl (1.7-2.4); Potassium 4.1 mmol/L (3.5-5.1); Total Protein 5.1 gm/dl (6.0-8.3)
--- NOTE | 2021-12-28 06:54 | XRay Report ---
XR chest 1V portable CLINICAL HISTORY: SEPSIS COMPARISON STUDY: Chest CT March 05, 2021. Chest radiograph December 24, 2021. FINDINGS: Right internal jugular [id number] is in place. Old left eighth rib fracture is noted. Th ere is a small right pleural effusion. Cardiomegaly is unchanged. No evidence for pulmonary edema. No consolidation to suggest pneumonia. IMPRESSION: 1. No consolidation to suggest pneumonia. 2. Small right pleural effusion. 3. Cardiomegaly without evidence for pulmonary edema. ACT 112: Negative or not required by law. Electronically signed by: Bunny Hilario M.D. 12/28/2021 6:52 AM
--- NOTE | 2021-12-28 07:42 | Electrocardiogram Report ---
Test Reason : Blood Pressure : / mmHG Vent. Rate : 125 BPM Atrial Rate : 083 BPM P-R Int : 000 ms QRS Dur : 072 ms QT Int : 326 ms P-R-T Axes : 000 -36 071 degrees QTc Int : 470 ms Poor data quality, interpretation may be adversely affected Atrial fibrillation Left axis deviation Low voltage QRS Abnormal ECG Confirmed by Juarez Conway ([id number]) on 12/28/2021 7:41:40 AM Referred By: REFERRED SELF Confirmed By:Kulwant Conway
[2021-12-28] MEDS ORDERED: MAGNESIUM SULFATE / D5W 1 GM/100 ML BAG IV ONE (08:12)
[2021-12-28] MEDS ORDERED: SODIUM BICARBONATE 8.4% 100 MEQ in WATER, STERILE 1,000 ML IV SCH (08:15)
[2021-12-28] MEDS: PANTOprazole 40 MG TAB PO SCH ×2 (08:25→20:43)
[2021-12-28] MEDS: INSULIN ASPART PER UNIT SC SCH ×4 (08:29→20:51)
[2021-12-28] MEDS: allopurinoL 300 MG TAB PO SCH (08:57)
[2021-12-28] MEDS: METOPROLOL SUCC 50MG EXT REL TAB PO SCH (08:57)
[2021-12-28] MEDS: ADVANCED PROBIOTIC 1250 MG CAPSULE PO SCH (08:58)
[2021-12-28] MEDS: OXYBUTYNIN CHLORIDE XL 5 MG TABCR PO SCH (08:58)
[2021-12-28] MEDS: CINACALCET HCL 30 MG TAB PO SCH (08:58)
[2021-12-28] MEDS: TAMSULOSIN HCL 0.4 MG CAP PO SCH ×2 (08:58→20:41)
[2021-12-28] MEDS: CETIRIZINE HCL 10 MG TABLET PO SCH (08:58)
[2021-12-28] MEDS: FERROUS SULFATE 325 MG TAB PO SCH (08:59)
[2021-12-28] MEDS ORDERED: FILGRASTIM 480 MCG/1.6 ML VIAL SC ONE (09:00)
[2021-12-28] MEDS: CARBOHYDRATES FOR HYPOGLYCEMIA PO PRN (11:32)
[2021-12-28 12:10] LABS: Adenovirus F 40/41 PCR Not Detected (NotDetected); Astrovirus PCR Not Detected (NotDetected); Campylobacter PCR Not Detected (NotDetected); Clostridium diff Toxin A/B PCR Not Detected (NotDetected); Cryptosporidium PCR Not Detected (NotDetected); Cyclospora cayetanensis PCR Not Detected (NotDetected); Entamoeba histolytica PCR Not Detected (NotDetected); Enteroaggregative E.coli(EAEC) Not Detected (NotDetected); Enteropathogenic E.coli (EPEC) Not Detected (NotDetected); Enterotoxigenic E.coli (ETEC) Not Detected (NotDetected); Giardia lamblia PCR Not Detected (NotDetected); Norovirus GI/GII PCR Not Detected (NotDetected); Plesiomonas shigelloides PCR Not Detected (NotDetected); Rotavirus A PCR Not Detected (NotDetected); Salmonella PCR Not Detected (NotDetected); Sapovirus PCR Not Detected (NotDetected); Shiga-like Toxin E.coli (STEC) Not Detected (NotDetected); Shigella/Enteroinvasive E.coli Not Detected (NotDetected); Vibrio cholerae PCR Not Detected (NotDetected); Vibrio species PCR Not Detected (NotDetected); Yersinia enterocolitica PCR Not Detected (NotDetected)
--- NOTE | 2021-12-28 14:18 | XRay Report ---
XR foot RT min 3V routine CLINICAL HISTORY: recent fall, pain, eval Fx COMPARISON: None FINDINGS: Alignment of the right foot is anatomic. No acute fracture. There is an old, healed fractu re the distal shaft of the right fifth metatarsal. Moderate vascular calcification is noted. Mild deg enerative changes are noted within multiple articulations of the right foot. IMPRESSION: No acute fracture or dislocation within the right foot. ACT 112: Negative or not required by law. Electronically signed by: Bunny Hilario M.D. 12/28/2021 2:17 PM
--- NOTE | 2021-12-28 14:20 | XRay Report ---
XR foot LT min 3V routine CLINICAL HISTORY: recent fall, pain, eval Fx COMPARISON: None FINDINGS: Alignment of the left foot is anatomic with the exception of hallux valgus. Tarsometatarsa l joints are intact. There is no acute fracture. Mild to moderate degenerative changes within multipl e articulations of the left foot are present. There is posterior calcaneal spurring. IMPRESSION: No acute fracture or dislocation within the left foot. ACT 112: Negative or not required by law. Electronically signed by: Bunny Hilario M.D. 12/28/2021 2:18 PM
--- NOTE | 2021-12-28 14:46 | CT Scan Report ---
CT OF THE CHEST WITHOUT IV CONTRAST CLINICAL HISTORY: bladder ca, weakness; eval pulm mets, etc COMPARISON STUDY: Chest CT March 05, 2021. Chest radiograph December 27, 2021. PET/CT November 11. CT DOSE: 849.33 mGy.cm TECHNIQUE: Axial images of the chest were obtained without IV contrast. Images were reviewed in the axial, sagittal, and coronal planes. IV contrast was not administered for this examination. Automat ed exposure control was utilized for the study. A dose lowering technique was utilized adhering to t he principles of ALARA. FINDINGS: An ill-defined enlarged left supraclavicular lymph node measures approximately 3.2 x 2.4 c m. This is suboptimally assessed on this exam due to motion artifact. This has likely increased in si ze since CT of November 12, 2019. Enlarged prevascular node measures 1.7 x 1.3 cm. This is either unchang ed or slightly decreased since prior PET/CT. Cardiomegaly is noted. There is extensive coronary arter y calcification There is a small pericardial effusion. No pneumothorax or pleural effusion is noted. No suspicious pulmonary nodules are noted although sensitivity is diminished given respiratory motion artifact on this exam. There is no consolidation to suggest pneumonia. Several old left-sided rib fr actures are noted. No suspicious lesions within the bony defect of the abdomen and pelvis CT will be reported separately. IMPRESSION: 1. No consolidation to suggest pneumonia. 2. Cardiomegaly. Small pericardial effusion. 3. Left supraclavicular and mediastinal pathologic lymphadenopathy. Minimal change, as above, since C T of November 11, 2021. ACT 112: Negative or not required by law. Electronically signed by: Bunny Hilario M.D. 12/28/2021 2:44 PM
--- NOTE | 2021-12-28 15:01 | CT Scan Report ---
CT OF THE ABDOMEN AND PELVIS WITHOUT CONTRAST CLINICAL HISTORY: known bladder ca; severe diarrhea COMPARISON STUDY: PET/CT November 11, 2021. CT of the abdomen and pelvis November 16, 2021. TECHNIQUE: Axial images of the abdomen and pelvis were obtained without IV contrast. Images were revi ewed in the axial, sagittal, and coronal planes. Automated exposure control was utilized for the brandi dy. A dose lowering technique was utilized adhering to the principles of ALARA. FINDINGS: Please note that the chest CT will be reported separately. A small pericardial effusion has developed since CT of November 16, 2021. No pneumatosis, free air or portal venous gas is present. Evalu ation of the abdomen and pelvis is suboptimal on this unenhanced exam. Liver, adrenal glands and panc reas are unremarkable. Bilateral adrenal nodules are unchanged from earlier exams. There is no eviden ce for a bowel obstruction. There is mild wall thickening of the colon and rectum with mild pericolon ic/perirectal stranding, similar to prior exam. Numerous bilateral renal lesions are noted. These are suboptimally assessed on this unenhanced exam. A 2 cm lesion within lower pole of the left kidney me asures above water attenuation but probably reflects a cyst when correlating with prior PET/CT. Marke d bilateral renal cortical thinning is noted. Right nephroureteral stent is appropriately positioned. Moderate right hydronephrosis has progressed. There is adjacent perinephric and periureteral thicken ing. Asymmetric right lateral bladder wall thickening is noted. There is also asymmetric soft tissue along the right aspect the bladder, adjacent to the right seminal vesicle. A mildly enlarged right co mmon iliac chain lymph node is unchanged. No additional enlarged abdominal or pelvic lymph nodes are noted. Sclerotic sacral lesion is unchanged. There is extensive aortoiliac atherosclerotic plaque. IMPRESSION: 1. Right nephroureteral stent in place. Increase in moderate right hydronephrosis with adjacent stran ding. No ureteral calculi. Persistent asymmetric right lateral bladder wall thickening with asymmetri c soft tissue adjacent to the right aspect of the bladder. This may reflect neoplasm. 2. Mild colonic and rectal wall thickening with adjacent stranding, similar to prior exam. This repre sents a nonspecific proctocolitis. No bowel obstruction. 3. No change in a mildly enlarged right common iliac chain lymph node. 4. Small pericardial effusion. ACT 112: Negative or not required by law. Electronically signed by: Bunny Hilario M.D. 12/28/2021 2:58 PM
[2021-12-28] MEDS: KETOCONAZOLE 2% CR 15 GM TUBE EXT SCH ×2 (15:27→20:44)
[2021-12-28] MEDS: FIRST - Mouthwash BLM 119 ML PO SCH ×3 (17:11→20:42)
[2021-12-28 19:46] LABS: Partial Thromboplastin Ratio 1.4; Partial Thromboplastin Time 37.3 Seconds (21.0-31.0); Prothrombin Time 10.9 Seconds (9.0-12.0)
[2021-12-28 20:01] LABS: BUN Creatinine Ratio 13.1 (10-20); Calcium 7.7 mg/dl (8.5-10.1); Creatinine Clr Calc Pharmacy 12.4 ml/min; Est GFR (African American) 12.5 ml/min; Est GFR (Non-African American) 10.8 ml/min; Potassium 3.9 mmol/L (3.5-5.1)
--- NOTE | 2021-12-28 20:08 | Urology Consultation ---
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 Patient has had a considerable issue in the past with obstruction of the renal system with hydronephrosis and hydroureter. Has neph tube from an outlying facility. Patient has had now multiple admissions from her illness related to the current management with chemotherapy. Patient has pancytopenia with significantly lowered white count. Has had a major issue with diarrhea and electrolyte abnormalities as well as abdominal pain illness most recently. This is led to this current admission. During further work-up and scanning patient was found to have increasing hydronephrosis with nephrostomy tube still in place. Nephrostomy tube has been clamped by the outlying facility. Has had issues with obstruction in the past that has been relieved with the nephrostomy tube being reengaged. Discussed options with patient. Had discussed directly with the hospitalist team earlier prior to initiating with the patient as well. Discussed different options. Have reviewed nephrology's options and recommendations. Reviewed this with patient as well. Will be reasonable to consider unclamping of nephrostomy tube to see if drainage improves. Discussed this with patient. We will plan to do this first thing in the morning to see if patient's issues improved with it. If patient continues to having worsening pain especially renal colic or major issues could consider unclamping sooner. Patient does have a moderate ALESSANDRA however this is improving. Has significant CKD at baseline. Typically runs between 3.9 and 4 with his creatinine. Is currently up to 4.9. Have been up and above 5 earlier in admission. We will plan to continue with hydration and supportive care. Patient's complicated medical and surgical history was reviewed and summarized above. All imaging was reviewed interpreted by myself. Had personally evaluated the CT scan and imaging. Discussed extensively with patient. Coordinated with the hospitalist team as well as the nephrology review. Patient's electrolytes and creatinine were reviewed by myself. Patient's ongoing issues with pancytopenia were also reviewed. Is currently having mild tachycardia without major other abnormality. We will plan to continue with observation for now and consider unclamping of nephrostomy tube in the AM Patient will likely need follow-up with Dr. Awan who is his urologist in the area to discuss different options as well as long-term plans and options for management if issues become more severe with the drainage situation. History of Present Illness Attending Physician: Kev Morales History of Present Illness New consultation for well-known patient with metastatic bladder cancer. Patient has had obstructive issues from this. Has nephrostomy tube in place that has been capped since the middle part of the summer. Patient has now had 2 admissions with issues related to deconditioning and issues with chemotherapy. Has continue to have issues with flank pain and ALESSANDRA. Has had obstruction of neph tube and issues related to this. Admitted with Deconditioning and issues related to diarrhea and fatigue. Has electrolyte abnormality with issues. Pancytopenic with concern for possible sepsis with infection. Patient intermittent onsent of acute exacerbation of issues related to pain and discomfort. Pain can be sudden with onset of pain into flank going down and radiating into groin and back in waves comes and goes. Can be severe at times. Discussed and reviewed patient's family history. Also, discussed patient's medical surgery history and no major changes or new issues have developed since last admission. Patient was admitted and is undergoing observation. Allergies Allergy/AdvReac Type Severity Reaction Status Date / Time Iodinated Contrast Media AdvReac Intermediate Hypertensio Verified 12/28/21 00:51 n atorvastatin [From Lipitor] AdvReac Mild muscle Verified 12/28/21 00:51 aches Home Medications Medication Instructions Recorded Confirmed Type dulaglutide 0.75 mg/0.5 mL 0.75 mg (0.5 mL) subcut WEEKLY #2 09/19/19 12/28/21 Rx subcutaneous pen injector mL (Trulicity) albuterol sulfate 90 mcg/actuation 2 puff inhalation QID PRN 05/22/20 12/28/21 Rx aerosol inhaler (Ventolin HFA) shortness of breath or wheezing #18 grams calcitriol 0.25 mcg capsule 0.25 mcg PO QPM 07/17/21 12/28/21 History metoprolol succinate 100 mg 100 mg PO QPM #90 tabs 07/30/21 12/28/21 Rx tablet,extended release 24 hr levothyroxine 100 mcg tablet 100 mcg PO QAM #90 tabs 10/12/21 12/28/21 Rx (Synthroid) cetirizine 10 mg capsule 10 mg PO QAM 11/16/21 12/28/21 History cinacalcet 30 mg tablet 30 mg PO 3XWK 11/16/21 12/28/21 History fluticasone propionate 50 2 spray intranasal DAILY PRN 11/16/21 12/28/21 History mcg/actuation nasal Dyspnea spray,suspension lactobacillus combination no.4 3 3,000 mmu cells PO QAM 11/16/21 12/28/21 History billion cell capsule (Probiotic) pantoprazole 40 mg tablet,delayed 40 mg PO BID #60 tabs 11/19/21 12/28/21 Rx release (Protonix) allopurinol 300 mg tablet 300 mg PO QAM 11/29/21 12/28/21 History ferrous sulfate 325 mg (65 mg 325 mg PO 3XWK 11/29/21 12/28/21 History iron) tablet oxybutynin chloride 5 mg 5 mg PO QAM 11/29/21 12/28/21 History tablet,extended release 24 hr tamsulosin 0.4 mg capsule 0.4 mg PO BID 11/29/21 12/28/21 History rosuvastatin 5 mg tablet 5 mg PO QPM #90 tabs 12/10/21 12/28/21 Rx Carboplatin Tabs 1 tab PO .NAUSEA PRN prn after 12/24/21 12/28/21 History chemo Gemcitabine Pill 1 tab PO DIRECTED 12/24/21 12/28/21 History olanzapine 2.5 mg tablet 2.5 mg PO DIRECTED 12/24/21 12/28/21 History Patient History Medical History Acid reflux Acute duodenal ulcer with hemorrhage Adenomatous polyp of colon Atrial fibrillation with rapid ventricular response Benign essential hypertension Benign prostatic hyperplasia 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 Blood loss anemia CAD (coronary atherosclerotic disease) Chronic kidney disease STAGE IV Chronic obstructive pulmonary disease Diabetes mellitus, type 2 Diarrhea Hearing loss History of blood transfusion 01/2021 [facility] History of stroke without residual deficits OCCURRED DURING AAA REPAIR [facility] [place] 5-6 YRS 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-NO ISSUES SINCE Hyperlipidemia Hypothyroidism Past myocardial infarction Port-A-Cath in place Secondary hyperparathyroidism Subclavian artery aneurysm Vocal fold paralysis, left Surgical History H/O arthroscopy of knee H/O transurethral destruction of bladder lesion 08/17/2019 History of biopsy of bladder History of cardiac cath History of carpal tunnel release RIGHT History of cataract surgery BILATERAL History of colonoscopy History of cystoscopy 01/19/2020 History of esophagogastroduodenoscopy (EGD) History of lymph node biopsy Nephrostomy status R PCN placed by IR 10/23/2021 S/P AAA (abdominal aortic aneurysm) repair Status post biopsy of kidney Family History Grandfather , in his eighties No problems noted. Grandmother , young cause unknown No problems noted. Grandfather , in his eighties No problems noted. Grandmother , did have breast cancer but in her eighties of unknown cause No problems noted. Father , He in his sixties had had three strokes and high blood pressure He had had a kidney removed perhaps from cancer Stroke Mother , in her mid seventies complications from smoking No problems noted. Daughter Age: 50 No problems noted. Daughter Age: 47 No problems noted. Daughter Age: 42 No problems noted. Brother , at age 7 of a stroke Stroke Grandmother (Maternal) Breast cancer Other No family history of adverse response to anesthesia No family history of bleeding disorder Denies family history of Ovarian cancer Prostate cancer Myocardial infarction Colorectal cancer Social History Smoking Status: Current every day smoker Tobacco Type: Cigarettes Age Started Using Tobacco: 10; packs per day: 0.5; Cigarettes Per Day: 10; Second Hand Exposure: No; Hx Alcohol Use: No Hx Substance Use: No Preferred Language: [place] Communication Ability: Effective Visual Impairment: Partially Limited Hearing Ability: Use of Hearing Aid Tool Chaser Required: No Beliefs That Will Affect Care: None marital status: Current Living Situation: Significant Other current occupational status: retired How many Children do You have: 3 Feels Safe at Home: Yes Childhood Exposure to Second-Hand Smoke: Yes (Both parents smoked ) Diet Comment: Diabetic diet caffeine: Yes (Coffee tea) during the past year weight has: remained stable Dental Care, Regularly: No Physical Activity Frequency: Does not Exercise Seatbelt Use: always Sunscreen Use: No Do you think of yourself as: straight/heterosexual Assistive Devices: None Review of Systems Review of Systems: All systems reviewed & are unremarkable except as noted in HPI & below Physical Exam Physical Exam: General: Alert and oriented x 3 in no acute distress. Chronic illness. Deconditioned HEENT: Normocephalic Atraumatic. Inspection normal. Cranial Nerves 2-12 Grossly intact. Nares are clear. Neck is supple. Normal inspection of face. Normal inspection of neck. Neurologic: No deficits on inspection. Baseline for motor function and sensory. Psychologic: Normal affect. Respiratory: Nonlabored. No use of accessory muscles. No tachypnea or dyspnea. Cardiovascular: No tachycardia Skin: [place] and Dry. No rashes or visible lesions. Extremities: Moving without issues. No motor deficits on inspection Lymphatics: No edema Abdomen: Soft. No rebound or guarding. Clamped/Capped nephrostomy tube on flank Results & Data ([facility]) Vital Signs (Past 12 Hours) Vital Signs Temp Pulse Pulse Resp BP BP Pulse Ox 12/28/21 19:40 36.6 C 97 H 18 130/76 98 12/28/21 10:41 36.5 C 105 H 16 112/72 98 12/28/21 16:00 36.6 C 104 H 16 137/80 99 12/28/21 16:54 14 97 12/28/21 14:43 106 H 12/28/21 11:00 16 98 12/28/21 11:30 16 98 12/28/21 12:00 16 98 12/28/21 12:30 16 95 12/28/21 12:54 15 95 12/28/21 10:30 16 98 12/28/21 10:00 16 98 12/28/21 09:30 15 97 12/28/21 09:00 15 97 12/28/21 08:30 16 98 12/28/21 10:00 36.5 C 105 H 16 112/72 98 12/28/21 09:41 36.5 C 102 H 16 128/83 981 H 12/28/21 09:40 36.4 C L 103 H 125/72 98 12/28/21 08:40 37.0 C 113 H 16 122/65 98 12/28/21 08:10 37.0 C 118 H 16 147/83 H 98 O2 Del Method 12/28/21 19:40 Room Air 12/28/21 10:41 12/28/21 16:00 Room Air 12/28/21 16:54 Room Air 12/28/21 14:43 12/28/21 11:00 Room Air 12/28/21 11:30 Room Air 12/28/21 12:00 Room Air 12/28/21 12:30 Room Air 12/28/21 12:54 Room Air 12/28/21 10:30 Room Air 12/28/21 10:00 Room Air 12/28/21 09:30 Room Air 12/28/21 09:00 Room Air 12/28/21 08:30 Room Air 12/28/21 10:00 12/28/21 09:41 12/28/21 09:40 12/28/21 08:40 12/28/21 08:10 PG Care Time/CCT Total # of Minutes Spent Total Time Spent with Patient: Total time spent is greater than 50% in coordination of care (as documented) at patient's floor/unit and/or counseling patient: Coding Level of Care Code 80799 Inpt Consult Level 4 Diagnoses Sepsis A41.9 Pancytopenia D61.818 Chemotherapy-induced fatigue R53.83; T45.1X5A CKD (chronic kidney disease) stage 5, GFR less than 15 ml/min N18.5 Hypomagnesemia E83.42 Diarrhea R19.7 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 C67.9; C78.00
[2021-12-28 20:14] LABS: Platelet Count 22 K/uL (130-400)
--- NOTE | 2021-12-28 20:23 | Hospitalist Progress Note ---
Date of Service December 28, 2021 Assessment & Plan (1) Chemotherapy-induced fatigue: Plan: patient complains of chronic, progressive weakness. MULTIFACTORIAL - bladder ca, pancytopenia from chemotherapy, decompensated hypothyroidism, diarrhea, malnutrition, deconditioning, acute/chronic renal failure -- all to blame for his weakness. will need PT, OT while here. lives alone - has had recent falls. (2) Antineoplastic chemotherapy induced pancytopenia: Plan: last chemo about 7-10 days ago per patient's family. severe pancytopenia. s/p neupogen today. s/p 1 unit of platelets. repeat platelet count following transfusion improved to the 20s. Hb 7.9. repeat CBC w/ diff am. neutropenic precautions. hopefully approaching gentry. to be complete check a folate/b12 level in am. (3) Diarrhea: Plan: present for several months. severe at times, ongoing. stool biofire negative. colonoscopy by [facility] late October with severe diverticular disease present and multiple polyps. at that time no colitis seen on colonoscopy. CT a/p obtained today - continues with findings concerning for distal colitis. radiation induced? (but typical radiation colitis findings were NOT seen on colonoscopy in October) CMV colitis? other cause? will add colestipol 1gm BID. will ask [facility] to see in am for additional recs. (4) Acute renal failure superimposed on stage 5 chronic kidney disease, not on chronic dialysis: Plan: Creatinine was about 4 in late October/early November. Now about 5. Nephrostomy tube was capped in early November. Creatinine since then has slowly risen. CT abd/pelvis today shows worsening hydronephrosis on right side since the nephrostomy tube was capped. spoke with urology - they will provide consultation. possible uncapping of his nephrostomy tube and placing to drainage. hopefully there would be some improvement in renal function with such. today - give 1 L of sodium bicarbonate infusion. serial BMPs. acidosis combination of progressive renal disease and diarrhea. of note - follows with Dr Garcia in nephrology clinic. low threshold to consult him as well. patient consistently has stated he would not want hemodialysis if he ever was recommended such. (5) Colitis: Plan: as seen on CT today. radiation induced? CMV? diverticulitis? ischemic? (but non-bloody stools) will ask [facility] to see in consult for any other recs. add colestipol 1gm BID. of note - stool BioFire negative. (6) Prolonged PTT: Plan: last 3 PTTs have all been prolonged. INR is normal. he is not on anticoagulation or heparin. factor deficiency? acquired inhibitor or lupus anticoagulant? start with mixing study and go from there. (7) Sepsis: Plan: admitting providers concerned about such. however, no infectious source found on CT imaging today, stool BioFire, etc. [id number] blood cultures are pending. remains on empiric cefepime + daptomycin. if cultures remain negative and he is afebrile then stop IV abx. 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: Plan: I recommended to patient to undergo CT chest/abd/pelvis to assess for worsening cancer in light of #1 above CTs obtained; it appears that his bladder ca is stable radiographically he just had chemotherapy about 7-10 days ago managed by Dr Martinez at [facility] has new small pericardial effusion - that could simply be from his progressive renal disease but can't rule out malignant effusion despite CT results clearly his chemotherapy is causing significant morbidity/weakness/fatigue/failure to thrive (11) Diabetes mellitus, type 2: Plan: with hypoglycemia this am hold novolog unlikely to need any therapy liberalize his diet (12) Hypothyroidism: Plan: last 3 TSH levels all high increase levothyroxine to 125mcg daily repeat TSH 6 weeks (13) Hyperlipidemia: Plan: statin (14) CAD (coronary atherosclerotic disease): Plan: no ischemic symptoms at this time cont betablocker cont statin (15) Rapid atrial fibrillation: Plan: presented in rapid a.fib has h/o PAF per records NOT an anticoagulation candidate due to prior GI bleeding, severe thrombocytopenia, etc move his metoprolol succinate from HS to AM dosing add CCB if needed (16) Candidal diaper rash: Plan: nystatin powder TID (17) Tinea pedis: Plan: ketoconazole cream BID (18) Pericardial effusion: Plan: small, as seen on CT today likely due to progressive renal disease cannot rule out effusion from his cancer should be followed over time (19) Bilateral foot pain: Plan: x-rays without fractures etiology? (20) History of duodenal ulcer: Plan: 10/2021 EGD with such cont PPI twice daily Plan daughter extensively updated at bedside pt's significant other extensively updated at bedside multiple visits to bedside today complex care coordination of this very sick gentleman total time today 75 minutes Admission and Anticipated Discharge Date Admission Date: December 28, 2021 Subjective patient w/ multiple complaints including - 1. weakness - chronic but progressive, having falls at home, injured his feet with one of the falls 2. diarrhea - severe, multiple times each day; "explosive", liquid; perirectal area very sore due to such; present for weeks 3. rash in groin 4. rash on feet 5. pain in feet b/l 6. pain over right flank where nephrostomy tube is present; hurts mainly with moving and activity, sometimes at rest; sharp, colicky Physical Exam Physical Exam: gen - weak-appearing, NAD mouth - MM slightly dry; irritation/mucositis right corner of mouth neck - no JVD heart - tachy, irregular, s1 s2 lungs - CTA b/l abd - soft NT ND BS+ back - nephrostomy tube site on right flank without drainage or cellulitis skin - tinea pedis b/l feet; candidal rash b/l groin ext - no edema, pulses 2+ b/l musculo - b/l feet without deformity; I am unable to elicit pain with palpation of either foot psych - restricted affect, a/o x 3 Results & Data Results & Data ([facility]) Vital Signs (Past 12 Hours) Vital Signs Temp Pulse Pulse Resp BP BP Pulse Ox 12/28/21 19:40 36.6 C 97 H 18 130/76 98 12/28/21 10:41 36.5 C 105 H 16 112/72 98 12/28/21 16:00 36.6 C 104 H 16 137/80 99 12/28/21 16:54 14 97 12/28/21 14:43 106 H 12/28/21 11:00 16 98 12/28/21 11:30 16 98 12/28/21 12:00 16 98 12/28/21 12:30 16 95 12/28/21 12:54 15 95 12/28/21 10:30 16 98 12/28/21 10:00 16 98 12/28/21 09:30 15 97 12/28/21 09:00 15 97 12/28/21 08:30 16 98 12/28/21 10:00 36.5 C 105 H 16 112/72 98 12/28/21 09:41 36.5 C 102 H 16 128/83 981 H 12/28/21 09:40 36.4 C L 103 H 125/72 98 12/28/21 08:40 37.0 C 113 H 16 122/65 98 O2 Del Method 12/28/21 19:40 Room Air 12/28/21 10:41 12/28/21 16:00 Room Air 12/28/21 16:54 Room Air 12/28/21 14:43 12/28/21 11:00 Room Air 12/28/21 11:30 Room Air 12/28/21 12:00 Room Air 12/28/21 12:30 Room Air 12/28/21 12:54 Room Air 12/28/21 10:30 Room Air 12/28/21 10:00 Room Air 12/28/21 09:30 Room Air 12/28/21 09:00 Room Air 12/28/21 08:30 Room Air 12/28/21 10:00 12/28/21 09:41 12/28/21 09:40 12/28/21 08:40 Laboratory Results Laboratory Results - last 24 hr 12/28/21 12/28/21 12/28/21 00:05 00:05 00:05 WBC 0.39 L* RBC 2.75 L Hgb 8.2 L Hct 25.5 L MCV 92.7 MCH 29.8 MCHC 32.2 RDW Std Deviation 58.2 H RDW Coeff of Josie 16.9 H Plt Count 12 L* Immature Gran % (Auto) Cancelled Neut % (Auto) Cancelled Lymph % (Auto) Cancelled Sharkey % (Auto) Cancelled Eos % (Auto) Cancelled Baso % (Auto) Cancelled Neut # (Auto) Cancelled Lymph # (Auto) Cancelled Sharkey # (Auto) Cancelled Eos # (Auto) Cancelled Baso # (Auto) Cancelled Immature Gran # (Auto) Cancelled Neutrophils % (Manual) Cancelled Band Neutrophils % Cancelled Lymphocytes % (Manual) Cancelled Prolymphocyte % Cancelled Reactive Lymphs % (Man) Cancelled Monocytes % (Manual) Cancelled Eosinophils % (Manual) Cancelled Basophils % (Manual) Cancelled Metamyelocytes % (Man) Cancelled Myelocytes % (Man) Cancelled Promyelocytes % (Man) Cancelled Blast Cells % (Manual) Cancelled Plasma Cell % (Manual) Cancelled Other Cells % Cancelled Nucleated RBC % Cancelled Neutrophils # (Manual) Cancelled Band Neutrophils # Cancelled Total Absolute Neuts Cancelled Lymphocytes # (Manual) Cancelled Prolymphocyte # Cancelled Reactive Lymphs # Cancelled Total Abs Lymphocytes Cancelled Monocytes # (Manual) Cancelled Eosinophils # (Manual) Cancelled Basophils # (Manual) Cancelled Metamyelocytes # (Man) Cancelled Myelocytes # (Manual) Cancelled Promyelocytes # (Man) Cancelled Blast Cells # (Man) Cancelled Plasma Cell # (Manual) Cancelled Other Cells # Cancelled Nucleated RBCs # (Man) Cancelled Hypersegmented Neuts Cancelled Hyposegmented Neuts Cancelled Hypogranular Neuts Cancelled Large Granular Lymphs Cancelled # Lrg Granular Lymphs Cancelled Hairy Cells Cancelled Smudge Cells Cancelled Toxic Granulation Cancelled Toxic Vacuolation Cancelled Dohle Bodies Cancelled Ludin Rods Cancelled Hypogranular Platelets Cancelled Clumped Platelets Cancelled Giant Platelets Cancelled Platelet Satelliting Cancelled RBC Morphology Cancelled Polychromasia Cancelled Hypochromasia Cancelled Poikilocytosis Cancelled Basophilic Stippling Cancelled Anisocytosis Cancelled Microcytosis Cancelled Macrocytosis Cancelled Spherocytes Cancelled Pappenheimer Bodies Cancelled Sickle Cells Cancelled Target Cells Cancelled Tear Drop Cells Cancelled Ovalocytes Cancelled Stomatocytes Cancelled Barrera-Century Bodies Cancelled Echinocytes Cancelled Acanthocytes (Spur) Cancelled Rouleaux Cancelled RBC Agglutinates Cancelled Schistocytes Cancelled Sezary Cell Cancelled PT 10.9 INR 1.0 APTT 44.7 H PTT Ratio 1.6 PT Mix Interpretation PTT Mix Interpretation Sodium 141 Potassium 4.0 Chloride 117 H Carbon Dioxide 12 L Anion Gap 12 H BUN 67 H Creatinine 5.10 H* Est Cr Clr Drug Dosing Not Reportable Est GFR ( Amer) 11.9 Est GFR (Non-Af Amer) 10.3 BUN/Creatinine Ratio 13.1 Glucose 160 H POC Glucose Lactate Calcium 8.2 L Magnesium 1.4 L Total Bilirubin 0.5 AST 13 ALT 12 Alkaline Phosphatase 77 Total Protein 5.4 L Albumin 3.0 L Globulin 2.4 L Albumin/Globulin Ratio 1.3 Urine Color Urine Appearance Urine pH Ur Specific [place] Urine Protein Urine Glucose (UA) Urine Ketones Urine Blood Urine Nitrite Urine Bilirubin Urine Urobilinogen Ur Leukocyte Esterase Urine WBC (Auto) Urine RBC (Auto) U Hyaline Cast (Auto) U Epithel Cells (Auto) Urine Bacteria (Auto) Nasal Screen MRSA (PCR) Stl C. cayetanensis PCR Stool Rotavirus A PCR Stl Adenov F 40/41 PCR Stool Astrovirus (PCR) Stool Campylobacter PCR Stl C. diff Tox A/B PCR Stool Cryptosporidium PCR Stl E.coli Shiga Tox PCR Stl Enterotoxigenic E PCR Stool EPEC (PCR) Stool EAEC (PCR) Stl E. histolytica PCR Stool Giardia Lamblia PCR Stool Salmonella PCR Stool Sapovirus (PCR) Stl P. shigelloides PCR Stl Shigella/EIEC PCR St Y.enterocolitica PCR Stool Vibrio (PCR) Stl Vibrio cholerae PCR Stl Norovirus GI/GII PCR SARS-CoV-2, RNA, NAAT Blood Parasites ID Cancelled Blood Type Antibody Screen 12/28/21 12/28/21 12/28/21 00:11 00:11 00:19 WBC RBC Hgb Hct MCV MCH MCHC RDW Std Deviation RDW Coeff of Josie Plt Count Immature Gran % (Auto) Neut % (Auto) Lymph % (Auto) Sharkey % (Auto) Eos % (Auto) Baso % (Auto) Neut # (Auto) Lymph # (Auto) Sharkey # (Auto) Eos # (Auto) Baso # (Auto) Immature Gran # (Auto) Neutrophils % (Manual) Band Neutrophils % Lymphocytes % (Manual) Prolymphocyte % Reactive Lymphs % (Man) Monocytes % (Manual) Eosinophils % (Manual) Basophils % (Manual) Metamyelocytes % (Man) Myelocytes % (Man) Promyelocytes % (Man) Blast Cells % (Manual) Plasma Cell % (Manual) Other Cells % Nucleated RBC % Neutrophils # (Manual) Band Neutrophils # Total Absolute Neuts Lymphocytes # (Manual) Prolymphocyte # Reactive Lymphs # Total Abs Lymphocytes Monocytes # (Manual) Eosinophils # (Manual) Basophils # (Manual) Metamyelocytes # (Man) Myelocytes # (Manual) Promyelocytes # (Man) Blast Cells # (Man) Plasma Cell # (Manual) Other Cells # Nucleated RBCs # (Man) Hypersegmented Neuts Hyposegmented Neuts Hypogranular Neuts Large Granular Lymphs # Lrg Granular Lymphs Hairy Cells Smudge Cells Toxic Granulation Toxic Vacuolation Dohle Bodies Ludin Rods Hypogranular Platelets Clumped Platelets Giant Platelets Platelet Satelliting RBC Morphology Polychromasia Hypochromasia Poikilocytosis Basophilic Stippling Anisocytosis Microcytosis Macrocytosis Spherocytes Pappenheimer Bodies Sickle Cells Target Cells Tear Drop Cells Ovalocytes Stomatocytes Barrera-Century Bodies Echinocytes Acanthocytes (Spur) Rouleaux RBC Agglutinates Schistocytes Sezary Cell PT INR APTT PTT Ratio PT Mix Interpretation PTT Mix Interpretation Sodium Potassium Chloride Carbon Dioxide Anion Gap BUN Creatinine Est Cr Clr Drug Dosing Est GFR ( Amer) Est GFR (Non-Af Amer) BUN/Creatinine Ratio Glucose POC Glucose Lactate 0.7 Calcium Magnesium Total Bilirubin AST ALT Alkaline Phosphatase Total Protein Albumin Globulin Albumin/Globulin Ratio Urine Color Urine Appearance Urine pH Ur Specific [place] Urine Protein Urine Glucose (UA) Urine Ketones Urine Blood Urine Nitrite Urine Bilirubin Urine Urobilinogen Ur Leukocyte Esterase Urine WBC (Auto) Urine RBC (Auto) U Hyaline Cast (Auto) U Epithel Cells (Auto) Urine Bacteria (Auto) Nasal Screen MRSA (PCR) Stl C. cayetanensis PCR Stool Rotavirus A PCR Stl Adenov F 40/41 PCR Stool Astrovirus (PCR) Stool Campylobacter PCR Stl C. diff Tox A/B PCR Stool Cryptosporidium PCR Stl E.coli Shiga Tox PCR Stl Enterotoxigenic E PCR Stool EPEC (PCR) Stool EAEC (PCR) Stl E. histolytica PCR Stool Giardia Lamblia PCR Stool Salmonella PCR Stool Sapovirus (PCR) Stl P. shigelloides PCR Stl Shigella/EIEC PCR St Y.enterocolitica PCR Stool Vibrio (PCR) Stl Vibrio cholerae PCR Stl Norovirus GI/GII PCR SARS-CoV-2, RNA, NAAT NEGATIVE Blood Parasites ID Blood Type O Positive Antibody Screen NEGATIVE 12/28/21 12/28/21 12/28/21 02:31 05:26 05:26 WBC 0.33 L* RBC 2.65 L Hgb 7.9 L Hct 24.2 L MCV 91.3 MCH 29.8 MCHC 32.6 RDW Std Deviation 57.5 H RDW Coeff of Josie 16.8 H Plt Count 12 L* Immature Gran % (Auto) Cancelled Neut % (Auto) Cancelled Lymph % (Auto) Cancelled Sharkey % (Auto) Cancelled Eos % (Auto) Cancelled Baso % (Auto) Cancelled Neut # (Auto) Cancelled Lymph # (Auto) Cancelled Sharkey # (Auto) Cancelled Eos # (Auto) Cancelled Baso # (Auto) Cancelled Immature Gran # (Auto) Cancelled Neutrophils % (Manual) Cancelled Band Neutrophils % Cancelled Lymphocytes % (Manual) Cancelled Prolymphocyte % Cancelled Reactive Lymphs % (Man) Cancelled Monocytes % (Manual) Cancelled Eosinophils % (Manual) Cancelled Basophils % (Manual) Cancelled Metamyelocytes % (Man) Cancelled Myelocytes % (Man) Cancelled Promyelocytes % (Man) Cancelled Blast Cells % (Manual) Cancelled Plasma Cell % (Manual) Cancelled Other Cells % Cancelled Nucleated RBC % Cancelled Neutrophils # (Manual) Cancelled Band Neutrophils # Cancelled Total Absolute Neuts Cancelled Lymphocytes # (Manual) Cancelled Prolymphocyte # Cancelled Reactive Lymphs # Cancelled Total Abs Lymphocytes Cancelled Monocytes # (Manual) Cancelled Eosinophils # (Manual) Cancelled Basophils # (Manual) Cancelled Metamyelocytes # (Man) Cancelled Myelocytes # (Manual) Cancelled Promyelocytes # (Man) Cancelled Blast Cells # (Man) Cancelled Plasma Cell # (Manual) Cancelled Other Cells # Cancelled Nucleated RBCs # (Man) Cancelled Hypersegmented Neuts Cancelled Hyposegmented Neuts Cancelled Hypogranular Neuts Cancelled Large Granular Lymphs Cancelled # Lrg Granular Lymphs Cancelled Hairy Cells Cancelled Smudge Cells Cancelled Toxic Granulation Cancelled Toxic Vacuolation Cancelled Dohle Bodies Cancelled Ludin Rods Cancelled Hypogranular Platelets Cancelled Clumped Platelets Cancelled Giant Platelets Cancelled Platelet Satelliting Cancelled RBC Morphology Cancelled Polychromasia Cancelled Hypochromasia Cancelled Poikilocytosis Cancelled Basophilic Stippling Cancelled Anisocytosis Cancelled Microcytosis Cancelled Macrocytosis Cancelled Spherocytes Cancelled Pappenheimer Bodies Cancelled Sickle Cells Cancelled Target Cells Cancelled Tear Drop Cells Cancelled Ovalocytes Cancelled Stomatocytes Cancelled Barrera-Century Bodies Cancelled Echinocytes Cancelled Acanthocytes (Spur) Cancelled Rouleaux Cancelled RBC Agglutinates Cancelled Schistocytes Cancelled Sezary Cell Cancelled PT INR APTT PTT Ratio PT Mix Interpretation PTT Mix Interpretation Sodium 141 Potassium 4.1 Chloride 118 H Carbon Dioxide 14 L Anion Gap 9 BUN 67 H Creatinine 4.99 H* Est Cr Clr Drug Dosing 12.1 Est GFR ( Amer) 12.3 Est GFR (Non-Af Amer) 10.6 BUN/Creatinine Ratio 13.4 Glucose 126 H POC Glucose Lactate Calcium 8.1 L Magnesium 1.6 L Total Bilirubin 0.5 AST 11 L ALT 11 Alkaline Phosphatase 72 Total Protein 5.1 L Albumin 2.8 L Globulin 2.3 L Albumin/Globulin Ratio 1.2 Urine Color Yellow Urine Appearance Clear Urine pH 5.5 Ur Specific [place] 1.015 Urine Protein 3+ H Urine Glucose (UA) Trace H Urine Ketones Negative Urine Blood 3+ H Urine Nitrite Negative Urine Bilirubin Negative Urine Urobilinogen Negative Ur Leukocyte Esterase Trace H Urine WBC (Auto) 5-10 H Urine RBC (Auto) >30 H U Hyaline Cast (Auto) 1-5 U Epithel Cells (Auto) >30 H Urine Bacteria (Auto) Negative Nasal Screen MRSA (PCR) Stl C. cayetanensis PCR Stool Rotavirus A PCR Stl Adenov F 40/41 PCR Stool Astrovirus (PCR) Stool Campylobacter PCR Stl C. diff Tox A/B PCR Stool Cryptosporidium PCR Stl E.coli Shiga Tox PCR Stl Enterotoxigenic E PCR Stool EPEC (PCR) Stool EAEC (PCR) Stl E. histolytica PCR Stool Giardia Lamblia PCR Stool Salmonella PCR Stool Sapovirus (PCR) Stl P. shigelloides PCR Stl Shigella/EIEC PCR St Y.enterocolitica PCR Stool Vibrio (PCR) Stl Vibrio cholerae PCR Stl Norovirus GI/GII PCR SARS-CoV-2, RNA, NAAT Blood Parasites ID Cancelled Blood Type Antibody Screen 12/28/21 12/28/21 12/28/21 05:34 07:18 09:56 WBC RBC Hgb Hct MCV MCH MCHC RDW Std Deviation RDW Coeff of Josie Plt Count Immature Gran % (Auto) Neut % (Auto) Lymph % (Auto) Sharkey % (Auto) Eos % (Auto) Baso % (Auto) Neut # (Auto) Lymph # (Auto) Sharkey # (Auto) Eos # (Auto) Baso # (Auto) Immature Gran # (Auto) Neutrophils % (Manual) Band Neutrophils % Lymphocytes % (Manual) Prolymphocyte % Reactive Lymphs % (Man) Monocytes % (Manual) Eosinophils % (Manual) Basophils % (Manual) Metamyelocytes % (Man) Myelocytes % (Man) Promyelocytes % (Man) Blast Cells % (Manual) Plasma Cell % (Manual) Other Cells % Nucleated RBC % Neutrophils # (Manual) Band Neutrophils # Total Absolute Neuts Lymphocytes # (Manual) Prolymphocyte # Reactive Lymphs # Total Abs Lymphocytes Monocytes # (Manual) Eosinophils # (Manual) Basophils # (Manual) Metamyelocytes # (Man) Myelocytes # (Manual) Promyelocytes # (Man) Blast Cells # (Man) Plasma Cell # (Manual) Other Cells # Nucleated RBCs # (Man) Hypersegmented Neuts Hyposegmented Neuts Hypogranular Neuts Large Granular Lymphs # Lrg Granular Lymphs Hairy Cells Smudge Cells Toxic Granulation Toxic Vacuolation Dohle Bodies Ludin Rods Hypogranular Platelets Clumped Platelets Giant Platelets Platelet Satelliting RBC Morphology Polychromasia Hypochromasia Poikilocytosis Basophilic Stippling Anisocytosis Microcytosis Macrocytosis Spherocytes Pappenheimer Bodies Sickle Cells Target Cells Tear Drop Cells Ovalocytes Stomatocytes Barrera-Century Bodies Echinocytes Acanthocytes (Spur) Rouleaux RBC Agglutinates Schistocytes Sezary Cell PT INR APTT PTT Ratio PT Mix Interpretation PTT Mix Interpretation Sodium Potassium Chloride Carbon Dioxide Anion Gap BUN Creatinine Est Cr Clr Drug Dosing Est GFR ( Amer) Est GFR (Non-Af Amer) BUN/Creatinine Ratio Glucose POC Glucose 141 H Lactate Calcium Magnesium Total Bilirubin AST ALT Alkaline Phosphatase Total Protein Albumin Globulin Albumin/Globulin Ratio Urine Color Urine Appearance Urine pH Ur Specific [place] Urine Protein Urine Glucose (UA) Urine Ketones Urine Blood Urine Nitrite Urine Bilirubin Urine Urobilinogen Ur Leukocyte Esterase Urine WBC (Auto) Urine RBC (Auto) U Hyaline Cast (Auto) U Epithel Cells (Auto) Urine Bacteria (Auto) Nasal Screen MRSA (PCR) Negative Stl C. cayetanensis PCR Not Detected Stool Rotavirus A PCR Not Detected Stl Adenov F 40/41 PCR Not Detected Stool Astrovirus (PCR) Not Detected Stool Campylobacter PCR Not Detected Stl C. diff Tox A/B PCR Not Detected Stool Cryptosporidium PCR Not Detected Stl E.coli Shiga Tox PCR Not Detected Stl Enterotoxigenic E PCR Not Detected Stool EPEC (PCR) Not Detected Stool EAEC (PCR) Not Detected Stl E. histolytica PCR Not Detected Stool Giardia Lamblia PCR Not Detected Stool Salmonella PCR Not Detected Stool Sapovirus (PCR) Not Detected Stl P. shigelloides PCR Not Detected Stl Shigella/EIEC PCR Not Detected St Y.enterocolitica PCR Not Detected Stool Vibrio (PCR) Not Detected Stl Vibrio cholerae PCR Not Detected Stl Norovirus GI/GII PCR Not Detected SARS-CoV-2, RNA, NAAT Blood Parasites ID Blood Type Antibody Screen 12/28/21 12/28/21 12/28/21 11:30 11:31 11:59 WBC RBC Hgb Hct MCV MCH MCHC RDW Std Deviation RDW Coeff of Josie Plt Count Immature Gran % (Auto) Neut % (Auto) Lymph % (Auto) Sharkey % (Auto) Eos % (Auto) Baso % (Auto) Neut # (Auto) Lymph # (Auto) Sharkey # (Auto) Eos # (Auto) Baso # (Auto) Immature Gran # (Auto) Neutrophils % (Manual) Band Neutrophils % Lymphocytes % (Manual) Prolymphocyte % Reactive Lymphs % (Man) Monocytes % (Manual) Eosinophils % (Manual) Basophils % (Manual) Metamyelocytes % (Man) Myelocytes % (Man) Promyelocytes % (Man) Blast Cells % (Manual) Plasma Cell % (Manual) Other Cells % Nucleated RBC % Neutrophils # (Manual) Band Neutrophils # Total Absolute Neuts Lymphocytes # (Manual) Prolymphocyte # Reactive Lymphs # Total Abs Lymphocytes Monocytes # (Manual) Eosinophils # (Manual) Basophils # (Manual) Metamyelocytes # (Man) Myelocytes # (Manual) Promyelocytes # (Man) Blast Cells # (Man) Plasma Cell # (Manual) Other Cells # Nucleated RBCs # (Man) Hypersegmented Neuts Hyposegmented Neuts Hypogranular Neuts Large Granular Lymphs # Lrg Granular Lymphs Hairy Cells Smudge Cells Toxic Granulation Toxic Vacuolation Dohle Bodies Ludin Rods Hypogranular Platelets Clumped Platelets Giant Platelets Platelet Satelliting RBC Morphology Polychromasia Hypochromasia Poikilocytosis Basophilic Stippling Anisocytosis Microcytosis Macrocytosis Spherocytes Pappenheimer Bodies Sickle Cells Target Cells Tear Drop Cells Ovalocytes Stomatocytes Barrera-Century Bodies Echinocytes Acanthocytes (Spur) Rouleaux RBC Agglutinates Schistocytes Sezary Cell PT INR APTT PTT Ratio PT Mix Interpretation PTT Mix Interpretation Sodium Potassium Chloride Carbon Dioxide Anion Gap BUN Creatinine Est Cr Clr Drug Dosing Est GFR ( Amer) Est GFR (Non-Af Amer) BUN/Creatinine Ratio Glucose POC Glucose 69 L* 67 L* 63 L* Lactate Calcium Magnesium Total Bilirubin AST ALT Alkaline Phosphatase Total Protein Albumin Globulin Albumin/Globulin Ratio Urine Color Urine Appearance Urine pH Ur Specific [place] Urine Protein Urine Glucose (UA) Urine Ketones Urine Blood Urine Nitrite Urine Bilirubin Urine Urobilinogen Ur Leukocyte Esterase Urine WBC (Auto) Urine RBC (Auto) U Hyaline Cast (Auto) U Epithel Cells (Auto) Urine Bacteria (Auto) Nasal Screen MRSA (PCR) Stl C. cayetanensis PCR Stool Rotavirus A PCR Stl Adenov F 40/41 PCR Stool Astrovirus (PCR) Stool Campylobacter PCR Stl C. diff Tox A/B PCR Stool Cryptosporidium PCR Stl E.coli Shiga Tox PCR Stl Enterotoxigenic E PCR Stool EPEC (PCR) Stool EAEC (PCR) Stl E. histolytica PCR Stool Giardia Lamblia PCR Stool Salmonella PCR Stool Sapovirus (PCR) Stl P. shigelloides PCR Stl Shigella/EIEC PCR St Y.enterocolitica PCR Stool Vibrio (PCR) Stl Vibrio cholerae PCR Stl Norovirus GI/GII PCR SARS-CoV-2, RNA, NAAT Blood Parasites ID Blood Type Antibody Screen 12/28/21 12/28/21 12/28/21 12:34 14:05 16:47 WBC RBC Hgb Hct MCV MCH MCHC RDW Std Deviation RDW Coeff of Josie Plt Count Immature Gran % (Auto) Neut % (Auto) Lymph % (Auto) Sharkey % (Auto) Eos % (Auto) Baso % (Auto) Neut # (Auto) Lymph # (Auto) Sharkey # (Auto) Eos # (Auto) Baso # (Auto) Immature Gran # (Auto) Neutrophils % (Manual) Band Neutrophils % Lymphocytes % (Manual) Prolymphocyte % Reactive Lymphs % (Man) Monocytes % (Manual) Eosinophils % (Manual) Basophils % (Manual) Metamyelocytes % (Man) Myelocytes % (Man) Promyelocytes % (Man) Blast Cells % (Manual) Plasma Cell % (Manual) Other Cells % Nucleated RBC % Neutrophils # (Manual) Band Neutrophils # Total Absolute Neuts Lymphocytes # (Manual) Prolymphocyte # Reactive Lymphs # Total Abs Lymphocytes Monocytes # (Manual) Eosinophils # (Manual) Basophils # (Manual) Metamyelocytes # (Man) Myelocytes # (Manual) Promyelocytes # (Man) Blast Cells # (Man) Plasma Cell # (Manual) Other Cells # Nucleated RBCs # (Man) Hypersegmented Neuts Hyposegmented Neuts Hypogranular Neuts Large Granular Lymphs # Lrg Granular Lymphs Hairy Cells Smudge Cells Toxic Granulation Toxic Vacuolation Dohle Bodies Ludin Rods Hypogranular Platelets Clumped Platelets Giant Platelets Platelet Satelliting RBC Morphology Polychromasia Hypochromasia Poikilocytosis Basophilic Stippling Anisocytosis Microcytosis Macrocytosis Spherocytes Pappenheimer Bodies Sickle Cells Target Cells Tear Drop Cells Ovalocytes Stomatocytes Barrera-Century Bodies Echinocytes Acanthocytes (Spur) Rouleaux RBC Agglutinates Schistocytes Sezary Cell PT INR APTT PTT Ratio PT Mix Interpretation PTT Mix Interpretation Sodium Potassium Chloride Carbon Dioxide Anion Gap BUN Creatinine Est Cr Clr Drug Dosing Est GFR ( Amer) Est GFR (Non-Af Amer) BUN/Creatinine Ratio Glucose POC Glucose 77 106 H 89 Lactate Calcium Magnesium Total Bilirubin AST ALT Alkaline Phosphatase Total Protein Albumin Globulin Albumin/Globulin Ratio Urine Color Urine Appearance Urine pH Ur Specific [place] Urine Protein Urine Glucose (UA) Urine Ketones Urine Blood Urine Nitrite Urine Bilirubin Urine Urobilinogen Ur Leukocyte Esterase Urine WBC (Auto) Urine RBC (Auto) U Hyaline Cast (Auto) U Epithel Cells (Auto) Urine Bacteria (Auto) Nasal Screen MRSA (PCR) Stl C. cayetanensis PCR Stool Rotavirus A PCR Stl Adenov F 40/41 PCR Stool Astrovirus (PCR) Stool Campylobacter PCR Stl C. diff Tox A/B PCR Stool Cryptosporidium PCR Stl E.coli Shiga Tox PCR Stl Enterotoxigenic E PCR Stool EPEC (PCR) Stool EAEC (PCR) Stl E. histolytica PCR Stool Giardia Lamblia PCR Stool Salmonella PCR Stool Sapovirus (PCR) Stl P. shigelloides PCR Stl Shigella/EIEC PCR St Y.enterocolitica PCR Stool Vibrio (PCR) Stl Vibrio cholerae PCR Stl Norovirus GI/GII PCR SARS-CoV-2, RNA, NAAT Blood Parasites ID Blood Type Antibody Screen 12/28/21 12/28/21 12/28/21 19:17 19:17 19:17 WBC RBC Hgb Hct MCV MCH MCHC RDW Std Deviation RDW Coeff of Josie Plt Count 22 L* D Immature Gran % (Auto) Neut % (Auto) Lymph % (Auto) Sharkey % (Auto) Eos % (Auto) Baso % (Auto) Neut # (Auto) Lymph # (Auto) Sharkey # (Auto) Eos # (Auto) Baso # (Auto) Immature Gran # (Auto) Neutrophils % (Manual) Band Neutrophils % Lymphocytes % (Manual) Prolymphocyte % Reactive Lymphs % (Man) Monocytes % (Manual) Eosinophils % (Manual) Basophils % (Manual) Metamyelocytes % (Man) Myelocytes % (Man) Promyelocytes % (Man) Blast Cells % (Manual) Plasma Cell % (Manual) Other Cells % Nucleated RBC % Neutrophils # (Manual) Band Neutrophils # Total Absolute Neuts Lymphocytes # (Manual) Prolymphocyte # Reactive Lymphs # Total Abs Lymphocytes Monocytes # (Manual) Eosinophils # (Manual) Basophils # (Manual) Metamyelocytes # (Man) Myelocytes # (Manual) Promyelocytes # (Man) Blast Cells # (Man) Plasma Cell # (Manual) Other Cells # Nucleated RBCs # (Man) Hypersegmented Neuts Hyposegmented Neuts Hypogranular Neuts Large Granular Lymphs # Lrg Granular Lymphs Hairy Cells Smudge Cells Toxic Granulation Toxic Vacuolation Dohle Bodies Ludin Rods Hypogranular Platelets Clumped Platelets Giant Platelets Platelet Satelliting RBC Morphology Polychromasia Hypochromasia Poikilocytosis Basophilic Stippling Anisocytosis Microcytosis Macrocytosis Spherocytes Pappenheimer Bodies Sickle Cells Target Cells Tear Drop Cells Ovalocytes Stomatocytes Barrera-Century Bodies Echinocytes Acanthocytes (Spur) Rouleaux RBC Agglutinates Schistocytes Sezary Cell PT 10.9 INR 1.0 APTT 37.3 H PTT Ratio 1.4 PT Mix Interpretation Pending PTT Mix Interpretation Pending Sodium 141 Potassium 3.9 Chloride 116 H Carbon Dioxide 14 L Anion Gap 11 BUN 64 H Creatinine 4.90 H* Est Cr Clr Drug Dosing 12.4 Est GFR ( Amer) 12.5 Est GFR (Non-Af Amer) 10.8 BUN/Creatinine Ratio 13.1 Glucose 84 POC Glucose Lactate Calcium 7.7 L Magnesium Total Bilirubin AST ALT Alkaline Phosphatase Total Protein Albumin Globulin Albumin/Globulin Ratio Urine Color Urine Appearance Urine pH Ur Specific [place] Urine Protein Urine Glucose (UA) Urine Ketones Urine Blood Urine Nitrite Urine Bilirubin Urine Urobilinogen Ur Leukocyte Esterase Urine WBC (Auto) Urine RBC (Auto) U Hyaline Cast (Auto) U Epithel Cells (Auto) Urine Bacteria (Auto) Nasal Screen MRSA (PCR) Stl C. cayetanensis PCR Stool Rotavirus A PCR Stl Adenov F PCR Stool Astrovirus (PCR) Stool Campylobacter PCR Stl C. diff Tox A/B PCR Stool Cryptosporidium PCR Stl E.coli Shiga Tox PCR Stl Enterotoxigenic E PCR Stool EPEC (PCR) Stool EAEC (PCR) Stl E. histolytica PCR Stool Giardia Lamblia PCR Stool Salmonella PCR Stool Sapovirus (PCR) Stl P. shigelloides PCR Stl Shigella/EIEC PCR St Y.enterocolitica PCR Stool Vibrio (PCR) Stl Vibrio cholerae PCR Stl Norovirus GI/GII PCR SARS-CoV-2, RNA, NAAT Blood Parasites ID Blood Type Antibody Screen 12/28/21 20:09 WBC RBC Hgb Hct MCV MCH MCHC RDW Std Deviation RDW Coeff of Josie Plt Count Immature Gran % (Auto) Neut % (Auto) Lymph % (Auto) Sharkey % (Auto) Eos % (Auto) Baso % (Auto) Neut # (Auto) Lymph # (Auto) Sharkey # (Auto) Eos # (Auto) Baso # (Auto) Immature Gran # (Auto) Neutrophils % (Manual) Band Neutrophils % Lymphocytes % (Manual) Prolymphocyte % Reactive Lymphs % (Man) Monocytes % (Manual) Eosinophils % (Manual) Basophils % (Manual) Metamyelocytes % (Man) Myelocytes % (Man) Promyelocytes % (Man) Blast Cells % (Manual) Plasma Cell % (Manual) Other Cells % Nucleated RBC % Neutrophils # (Manual) Band Neutrophils # Total Absolute Neuts Lymphocytes # (Manual) Prolymphocyte # Reactive Lymphs # Total Abs Lymphocytes Monocytes # (Manual) Eosinophils # (Manual) Basophils # (Manual) Metamyelocytes # (Man) Myelocytes # (Manual) Promyelocytes # (Man) Blast Cells # (Man) Plasma Cell # (Manual) Other Cells # Nucleated RBCs # (Man) Hypersegmented Neuts Hyposegmented Neuts Hypogranular Neuts Large Granular Lymphs # Lrg Granular Lymphs Hairy Cells Smudge Cells Toxic Granulation Toxic Vacuolation Dohle Bodies Ludin Rods Hypogranular Platelets Clumped Platelets Giant Platelets Platelet Satelliting RBC Morphology Polychromasia Hypochromasia Poikilocytosis Basophilic Stippling Anisocytosis Microcytosis Macrocytosis Spherocytes Pappenheimer Bodies Sickle Cells Target Cells Tear Drop Cells Ovalocytes Stomatocytes Barrera-Century Bodies Echinocytes Acanthocytes (Spur) Rouleaux RBC Agglutinates Schistocytes Sezary Cell PT INR APTT PTT Ratio PT Mix Interpretation PTT Mix Interpretation Sodium Potassium Chloride Carbon Dioxide Anion Gap BUN Creatinine Est Cr Clr Drug Dosing Est GFR ( Amer) Est GFR (Non-Af Amer) BUN/Creatinine Ratio Glucose POC Glucose 88 Lactate Calcium Magnesium Total Bilirubin AST ALT Alkaline Phosphatase Total Protein Albumin Globulin Albumin/Globulin Ratio Urine Color Urine Appearance Urine pH Ur Specific [place] Urine Protein Urine Glucose (UA) Urine Ketones Urine Blood Urine Nitrite Urine Bilirubin Urine Urobilinogen Ur Leukocyte Esterase Urine WBC (Auto) Urine RBC (Auto) U Hyaline Cast (Auto) U Epithel Cells (Auto) Urine Bacteria (Auto) Nasal Screen MRSA (PCR) Stl C. cayetanensis PCR Stool Rotavirus A PCR Stl Adenov F 40/41 PCR Stool Astrovirus (PCR) Stool Campylobacter PCR Stl C. diff Tox A/B PCR Stool Cryptosporidium PCR Stl E.coli Shiga Tox PCR Stl Enterotoxigenic E PCR Stool EPEC (PCR) Stool EAEC (PCR) Stl E. histolytica PCR Stool Giardia Lamblia PCR Stool Salmonella PCR Stool Sapovirus (PCR) Stl P. shigelloides PCR Stl Shigella/EIEC PCR St Y.enterocolitica PCR Stool Vibrio (PCR) Stl Vibrio cholerae PCR Stl Norovirus GI/GII PCR SARS-CoV-2, RNA, NAAT Blood Parasites ID Blood Type Antibody Screen PG Care Time/CCT Total # of Minutes Spent Total Time Spent with Patient: Total time spent is greater than 50% in coordination of care (as documented) at patient's floor/unit and/or counseling patient: Prolonged Care Time Prolonged Care Time: Yes Total Prolonged Care Time: 75 Coding Level of Care Code 36912 Subseq Hosp Care Lvl 3 (25 - SIGNIFICANT, SEPARATELY IDENTIFIABLE ) Diagnoses Chemotherapy-induced fatigue R53.83; T45.1X5A Antineoplastic chemotherapy induced pancytopenia D61.810; T45.1X5A Diarrhea R19.7 Acute renal failure superimposed on stage 5 chronic kidney disease, not on chronic dialysis N17.9; N18.5 Colitis K52.9 Prolonged PTT R79.1 Sepsis A41.9 Hypomagnesemia E83.42 Hypertension I10 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 C67.9; C78.00 Diabetes mellitus, type 2 E11.9 Hypothyroidism E03.9 Hypothyroidism type: acquired Hyperlipidemia E78.2 Hyperlipidemia type: mixed hyperlipidemia CAD (coronary atherosclerotic disease) I25.10 Rapid atrial fibrillation I48.91 Candidal diaper rash B37.2; L22 Tinea pedis B35.3 Pericardial effusion I31.3 Bilateral foot pain M79.671; M79.672 History of duodenal ulcer Z87.19 Additional Codes Prolonged Care Time - Prolonged Care Time: Yes ([id number]) Time Spent (min) 75 (1) Hyperlipidemia Hyperlipidemia type: mixed hyperlipidemia Qualified Code(s): E78.2 - Mixed hyperlipidemia (2) Hypothyroidism Hypothyroidism type: acquired Qualified Code(s): E03.9 - Hypothyroidism, unspecified
[2021-12-28] MEDS: CALCITRIOL 0.25 MCG CAPSULE PO SCH (20:43)
[2021-12-28] MEDS: ROSUVASTATIN CALCIUM 5 MG TAB PO SCH (20:43)
[2021-12-28] MEDS ORDERED: METOPROLOL SUCC 50MG EXT REL TAB PO SCH (21:00)
[2021-12-28] MEDS: COLESTIPOL HCL 1 GM TAB PO SCH (21:56)
[2021-12-28] MEDS: ACETAMINOPHEN 325 MG TAB PO PRN (22:18)
[2021-12-29] MEDS: CEFEPIME 1,000 MG in SYRINGE 0 ML IV SCH (06:04)
[2021-12-29] MEDS: FIRST - Mouthwash BLM 119 ML PO SCH ×5 (06:04→16:42)
[2021-12-29] MEDS: LEVOTHYROXINE SODIUM 125 MCG TABLET PO SCH (06:06)
[2021-12-29 07:56] LABS: Hematocrit (blood only) 21.7 % (40.1-51.0); Hemoglobin 7.1 g/dl (14.0-18.0); Mean Corpuscular Hemoglobin 30.1 pg (25.0-34.0); Mean Corpuscular Hgb Conc 32.7 g/dL (32.0-36.0); Mean Corpuscular Volume 91.9 fL (80.0-100.0); Mean Platelet Volume 9.1 fL (9.4-12.4); Platelet Count 18 K/uL (130-400); RDW Coefficient of Variation 16.9 % (11.5-14.5); Red Blood Count 2.36 M/uL (4.63-6.08); White Blood Count 0.48 K/ul (4.8-10.8)
[2021-12-29 08:00] LABS: BUN Creatinine Ratio 13.3 (10-20); Calcium 7.6 mg/dl (8.5-10.1); Creatinine Clr Calc Pharmacy 10.9 ml/min; Est GFR (African American) 12.3 ml/min; Est GFR (Non-African American) 10.6 ml/min; Potassium 3.9 mmol/L (3.5-5.1)
[2021-12-29 08:01] LABS: Albumin Globulin Ratio 1.2 (0.9-2); Albumin Level 2.6 gm/dl (3.4-5.0); BUN Creatinine Ratio 13.2 (10-20); Bilirubin,Total 0.5 mg/dl (0.2-1.0); Calcium 7.6 mg/dl (8.5-10.1); Creatinine Clr Calc Pharmacy 10.8 ml/min; Est GFR (African American) 12.2 ml/min; Est GFR (Non-African American) 10.5 ml/min; Globulin 2.2 gm/dl (2.5-4.0); Magnesium 1.7 mg/dl (1.7-2.4); Potassium 3.8 mmol/L (3.5-5.1); Total Protein 4.8 gm/dl (6.0-8.3)
[2021-12-29 08:10] LABS: Folate (Folic Acid) 13.73 ng/ml (>5.38)
[2021-12-29] MEDS ORDERED: STAT IV STA (08:39)
[2021-12-29] MEDS ORDERED: SODIUM CHLORIDE 0.9% 250 ML IV PRN (08:41)
[2021-12-29] MEDS ORDERED: FILGRASTIM 480 MCG/1.6 ML VIAL SC ONE ×2 (08:43)
[2021-12-29] MEDS ORDERED: SODIUM BICARBONATE 8.4% 150 MEQ in DEXTROSE 5% 1,000 ML IV SCH (08:45)
[2021-12-29] MEDS: ADVANCED PROBIOTIC 1250 MG CAPSULE PO SCH (08:52)
[2021-12-29] MEDS: PANTOprazole 40 MG TAB PO SCH ×2 (08:53→21:13)
[2021-12-29] MEDS: TAMSULOSIN HCL 0.4 MG CAP PO SCH ×2 (08:54→21:14)
[2021-12-29] MEDS: allopurinoL 300 MG TAB PO SCH (08:55)
[2021-12-29] MEDS: METOPROLOL SUCC 50MG EXT REL TAB PO SCH (08:55)
[2021-12-29] MEDS: CETIRIZINE HCL 10 MG TABLET PO SCH (08:55)
[2021-12-29] MEDS: OXYBUTYNIN CHLORIDE XL 5 MG TABCR PO SCH (08:56)
[2021-12-29] MEDS: NYSTATIN POWDER 15GM BTL EXT SCH ×3 (08:56→21:12)
[2021-12-29] MEDS: KETOCONAZOLE 2% CR 15 GM TUBE EXT SCH ×2 (08:58→21:13)
[2021-12-29] MEDS: INSULIN ASPART PER UNIT SC SCH ×4 (09:01→21:13)
--- NOTE | 2021-12-29 09:11 | Gastrointestinal Consultation ---
Date of Consultation December 29, 2021 History of Present Illness Reason for Consultation: Colitis on CT, ongoing diarrhea Requesting Physician: Maurizio Morales Attending Physician: Hannah Burrows MD History of Present Illness Patient is a 76 year old male with history of bladder cancer with lung metastasis on chemotherapy, BPH, CAD, HTN, HLD, DM2, CKD4, and recent admission due to obstructive urinary symptoms (11/29/21-12/04/21) who presented to the ED due to several days of generalized weakness. He also notes that he has had diarrhea since August 2021. Upon admission he had CT showing mild colonic and rectal wall thickening with adjacent stranding similiar to prior exam representing a nonspecific proctocolitis. Stool biofire testing was unremarkable. The patient tells me that he has not had any further diarrhea since admission. Nursing tells me that he had 2 bowel movements yesterday. no bleeding or melena per patient. no bleeding or melena reported per nursing. He does admit to some dysphagia. Patient denies any current issues with nausea, vomiting, heartburn, abdominal pain, melena, or bright red blood per rectum. EGD - 11/17/21 gastritis, nonbleeding duodenal ulcer, erythematous duodenopathy. COLO - 11/19/21 poor prep, colon polyps, diverticulosis, and nonbleeding angioectasia treated with APC. Allergies Allergy/AdvReac Type Severity Reaction Status Date / Time Iodinated Contrast Media AdvReac Intermediate Hypertensio Verified 12/28/21 00:51 n atorvastatin [From Lipitor] AdvReac Mild muscle Verified 12/28/21 00:51 aches Home Medications Medication Instructions Recorded Confirmed Type dulaglutide 0.75 mg/0.5 mL 0.75 mg (0.5 mL) subcut WEEKLY #2 09/19/19 12/28/21 Rx subcutaneous pen injector mL (Trulicity) albuterol sulfate 90 mcg/actuation 2 puff inhalation QID PRN 05/22/20 12/28/21 Rx aerosol inhaler (Ventolin HFA) shortness of breath or wheezing #18 grams calcitriol 0.25 mcg capsule 0.25 mcg PO QPM 07/17/21 12/28/21 History metoprolol succinate 100 mg 100 mg PO QPM #90 tabs 07/30/21 12/28/21 Rx tablet,extended release 24 hr levothyroxine 100 mcg tablet 100 mcg PO QAM #90 tabs 10/12/21 12/28/21 Rx (Synthroid) cetirizine 10 mg capsule 10 mg PO QAM 11/16/21 12/28/21 History cinacalcet 30 mg tablet 30 mg PO 3XWK 11/16/21 12/28/21 History fluticasone propionate 50 2 spray intranasal DAILY PRN 11/16/21 12/28/21 History mcg/actuation nasal Dyspnea spray,suspension lactobacillus combination no.4 3 3,000 mmu cells PO QAM 11/16/21 12/28/21 History billion cell capsule (Probiotic) pantoprazole 40 mg tablet,delayed 40 mg PO BID #60 tabs 11/19/21 12/28/21 Rx release (Protonix) allopurinol 300 mg tablet 300 mg PO QAM 11/29/21 12/28/21 History ferrous sulfate 325 mg (65 mg 325 mg PO 3XWK 11/29/21 12/28/21 History iron) tablet oxybutynin chloride 5 mg 5 mg PO QAM 11/29/21 12/28/21 History tablet,extended release 24 hr tamsulosin 0.4 mg capsule 0.4 mg PO BID 11/29/21 12/28/21 History rosuvastatin 5 mg tablet 5 mg PO QPM #90 tabs 12/10/21 12/28/21 Rx Carboplatin Tabs 1 tab PO .NAUSEA PRN prn after 12/24/21 12/28/21 History chemo Gemcitabine Pill 1 tab PO DIRECTED 12/24/21 12/28/21 History olanzapine 2.5 mg tablet 2.5 mg PO DIRECTED 12/24/21 12/28/21 History Patient History Medical History Acid reflux Acute duodenal ulcer with hemorrhage Adenomatous polyp of colon Atrial fibrillation with rapid ventricular response Benign essential hypertension Benign prostatic hyperplasia 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 Blood loss anemia CAD (coronary atherosclerotic disease) Chronic kidney disease STAGE IV Chronic obstructive pulmonary disease Diabetes mellitus, type 2 Diarrhea Hearing loss History of blood transfusion 01/2021 [facility] History of stroke without residual deficits OCCURRED DURING AAA REPAIR [facility] [place] 5-6 YRS 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-NO ISSUES SINCE Hyperlipidemia Hypothyroidism Past myocardial infarction Port-A-Cath in place Secondary hyperparathyroidism Subclavian artery aneurysm Vocal fold paralysis, left Surgical History H/O arthroscopy of knee H/O transurethral destruction of bladder lesion 08/17/2019 History of biopsy of bladder History of cardiac cath History of carpal tunnel release RIGHT History of cataract surgery BILATERAL History of colonoscopy History of cystoscopy 01/19/2020 History of esophagogastroduodenoscopy (EGD) History of lymph node biopsy Nephrostomy status R PCN placed by IR 10/23/2021 S/P AAA (abdominal aortic aneurysm) repair Status post biopsy of kidney Family History Grandfather , in his eighties No problems noted. Grandmother , young cause unknown No problems noted. Grandfather , in his eighties No problems noted. Grandmother , did have breast cancer but in her eighties of unknown cause No problems noted. Father , He in his sixties had had three strokes and high blood pressure He had had a kidney removed perhaps from cancer Stroke Mother , in her mid seventies complications from smoking No problems noted. Daughter Age: 50 No problems noted. Daughter Age: 47 No problems noted. Daughter Age: 42 No problems noted. Brother , at age 7 of a stroke Stroke Grandmother (Maternal) Breast cancer Other No family history of adverse response to anesthesia No family history of bleeding disorder Denies family history of Ovarian cancer Prostate cancer Myocardial infarction Colorectal cancer Social History Smoking Status: Current every day smoker Tobacco Type: Cigarettes Age Started Using Tobacco: 10; packs per day: 0.5; Cigarettes Per Day: 10; Second Hand Exposure: No; Hx Alcohol Use: No Hx Substance Use: No Preferred Language: German Communication Ability: Effective Visual Impairment: Partially Limited Hearing Ability: Use of Hearing Aid 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 Required: No Beliefs That Will Affect Care: None marital status: Current Living Situation: Significant Other current occupational status: retired How many Children do You have: 3 Feels Safe at Home: Yes Childhood Exposure to Second-Hand Smoke: Yes (Both parents smoked ) Diet Comment: Diabetic diet caffeine: Yes (Coffee tea) during the past year weight has: remained stable Dental Care, Regularly: No Physical Activity Frequency: Does not Exercise Seatbelt Use: always Sunscreen Use: No Do you think of yourself as: straight/heterosexual Assistive Devices: None Review of Systems Review of Systems: All systems reviewed & are unremarkable except as noted in HPI & below Physical Exam Constitutional: WD/WN, vitals as above Eyes: + anicteric sclerae Respiratory: normal respiratory effort, lungs clear to auscultation Cardiovascular: RRR, no murmur, no edema Gastrointestinal (Abdomen): normal bowel sounds, soft, nontender, no hepatosplenomegaly Skin: no rashes, warm and dry Psychiatric: Orientation: alert and oriented x 3 Results & Data ([facility]) Vital Signs (Past 12 Hours) Vital Signs Temp Pulse Pulse Resp BP BP Pulse Ox 12/29/21 05:13 18 12/29/21 03:32 36.7 C 73 18 134/70 96 12/28/21 22:21 107 H 12/28/21 23:34 37.2 C 93 H 20 127/80 97 O2 Del Method 12/29/21 05:13 Room Air 12/29/21 03:32 Room Air 12/28/21 22:21 12/28/21 23:34 Room Air Diagnostic Findings CT OF THE ABDOMEN AND PELVIS WITHOUT CONTRAST 12/28/21 CLINICAL HISTORY: known bladder ca; severe diarrhea COMPARISON STUDY: PET/CT November 11, 2021. CT of the abdomen and pelvis November 16, 2021. TECHNIQUE: Axial images of the abdomen and pelvis were obtained without IV contrast. Images were reviewed in the axial, sagittal, and coronal planes. Automated exposure control was utilized for the study. A dose lowering technique was utilized adhering to the principles of ALARA. FINDINGS: Please note that the chest CT will be reported separately. A small pericardial effusion has developed since CT of November 16, 2021. No pneumatosis, free air or portal venous gas is present. Evaluation of the abdomen and pelvis is suboptimal on this unenhanced exam. Liver, adrenal glands and pancreas are unremarkable. Bilateral adrenal nodules are unchanged from earlier exams. There is no evidence for a bowel obstruction. There is mild wall thickening of the colon and rectum with mild pericolonic/perirectal stranding, similar to prior exam. Numerous bilateral renal lesions are noted. These are suboptimally assessed on this unenhanced exam. A 2 cm lesion within lower pole of the left kidney measures above water attenuation but probably reflects a cyst when correlating with prior PET/CT. Marked bilateral renal cortical thinning is noted. Right nephroureteral stent is appropriately positioned. Moderate right hydronephrosis has progressed. There is adjacent perinephric and periureteral thickening. Asymmetric right lateral bladder wall thickening is noted. There is also asymmetric soft tissue along the right aspect the bladder, adjacent to the right seminal vesicle. A mildly enlarged right common iliac chain lymph node is unchanged. No additional enlarged abdominal or pelvic lymph nodes are noted. Sclerotic sacral lesion is unchanged. There is extensive aortoiliac atherosclerotic plaque. IMPRESSION: 1. Right nephroureteral stent in place. Increase in moderate right hydronephrosis with adjacent stranding. No ureteral calculi. Persistent asymmetric right lateral bladder wall thickening with asymmetric soft tissue adjacent to the right aspect of the bladder. This may reflect neoplasm. 2. Mild colonic and rectal wall thickening with adjacent stranding, similar to prior exam. This represents a nonspecific proctocolitis. No bowel obstruction. 3. No change in a mildly enlarged right common iliac chain lymph node. 4. Small pericardial effusion. PG Care Time/CCT Total # of Minutes Spent Total Time Spent with Patient: Total time spent is greater than 50% in coordination of care (as documented) at patient's floor/unit and/or counseling patient: Coding
--- NOTE | 2021-12-29 09:19 | Gastrointestinal Consultation ---
Date of Consultation December 29, 2021 Assessment & Plan (1) Diarrhea: He has intermittent diarrhea that is more than likely chemotherapy induced since no evidence proctitis or inflammatory process in October when proctitis was seen on CT. He says the problem is intermittent and he is convinced it is chemo rela rafaela. He says also that it is gone now--he received colestipol. With leukocytopenia and negative recent colonoscopy I would treat his diarrhea empirically as you are with colestipol. You can even use Imodium as needed. I don't plan intervention or further evaluation now. Present on Admission?: Yes (2) Colitis: He may well have radiation proctitis but no treatment to be done. No evidence inflammatory proctitis on colonoscopy in October and CT showed same changes. History of Present Illness Reason for Consultation: diarrhea, colitis on CT Attending Physician: Hannah Burrows MD History of Present Illness 76 year old man with metastatic bladder cancer who was admitted with weakness and diarrhea. His diarrhea is intermittent but can be "explosive". He tells me he thinks it is related to chemotherapy that he gets. He had it in October and had an EGD and a colonoscopy and polyps were removed as well as severe diverticular disease was found. He last had a loose stool yesterday but has no more now. He says his "diarrhea is gone". He was started on colestipol. He sees no blood. He has no abdominal pain or any GI complaints. Of note his leukocyte count is 490. Allergies Allergy/AdvReac Type Severity Reaction Status Date / Time Iodinated Contrast Media AdvReac Intermediate Hypertensio Verified 12/28/21 00:51 n atorvastatin [From Lipitor] AdvReac Mild muscle Verified 12/28/21 00:51 aches Home Medications Medication Instructions Recorded Confirmed Type dulaglutide 0.75 mg/0.5 mL 0.75 mg (0.5 mL) subcut WEEKLY #2 09/19/19 12/28/21 Rx subcutaneous pen injector mL (Trulicity) albuterol sulfate 90 mcg/actuation 2 puff inhalation QID PRN 05/22/20 12/28/21 Rx aerosol inhaler (Ventolin HFA) shortness of breath or wheezing #18 grams calcitriol 0.25 mcg capsule 0.25 mcg PO QPM 07/17/21 12/28/21 History metoprolol succinate 100 mg 100 mg PO QPM #90 tabs 07/30/21 12/28/21 Rx tablet,extended release 24 hr levothyroxine 100 mcg tablet 100 mcg PO QAM #90 tabs 10/12/21 12/28/21 Rx (Synthroid) cetirizine 10 mg capsule 10 mg PO QAM 11/16/21 12/28/21 History cinacalcet 30 mg tablet 30 mg PO 3XWK 11/16/21 12/28/21 History fluticasone propionate 50 2 spray intranasal DAILY PRN 11/16/21 12/28/21 History mcg/actuation nasal Dyspnea spray,suspension lactobacillus combination no.4 3 3,000 mmu cells PO QAM 11/16/21 12/28/21 History billion cell capsule (Probiotic) pantoprazole 40 mg tablet,delayed 40 mg PO BID #60 tabs 11/19/21 12/28/21 Rx release (Protonix) allopurinol 300 mg tablet 300 mg PO QAM 11/29/21 12/28/21 History ferrous sulfate 325 mg (65 mg 325 mg PO 3XWK 11/29/21 12/28/21 History iron) tablet oxybutynin chloride 5 mg 5 mg PO QAM 11/29/21 12/28/21 History tablet,extended release 24 hr tamsulosin 0.4 mg capsule 0.4 mg PO BID 11/29/21 12/28/21 History rosuvastatin 5 mg tablet 5 mg PO QPM #90 tabs 12/10/21 12/28/21 Rx Carboplatin Tabs 1 tab PO .NAUSEA PRN prn after 12/24/21 12/28/21 History chemo Gemcitabine Pill 1 tab PO DIRECTED 12/24/21 12/28/21 History olanzapine 2.5 mg tablet 2.5 mg PO DIRECTED 12/24/21 12/28/21 History Patient History Medical History Acid reflux Acute duodenal ulcer with hemorrhage Adenomatous polyp of colon Atrial fibrillation with rapid ventricular response Benign essential hypertension Benign prostatic hyperplasia 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 Blood loss anemia CAD (coronary atherosclerotic disease) Chronic kidney disease STAGE IV Chronic obstructive pulmonary disease Diabetes mellitus, type 2 Diarrhea Hearing loss History of blood transfusion 01/2021 [facility] History of stroke without residual deficits OCCURRED DURING AAA REPAIR [facility] 5-6 YRS 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-NO ISSUES SINCE Hyperlipidemia Hypothyroidism Past myocardial infarction Port-A-Cath in place Secondary hyperparathyroidism Subclavian artery aneurysm Vocal fold paralysis, left Surgical History H/O arthroscopy of knee H/O transurethral destruction of bladder lesion 08/17/2019 History of biopsy of bladder History of cardiac cath History of carpal tunnel release RIGHT History of cataract surgery BILATERAL History of colonoscopy History of cystoscopy 01/19/2020 History of esophagogastroduodenoscopy (EGD) History of lymph node biopsy Nephrostomy status R PCN placed by IR 10/23/2021 S/P AAA (abdominal aortic aneurysm) repair Status post biopsy of kidney Family History Grandfather , in his eighties No problems noted. Grandmother , young cause unknown No problems noted. Grandfather , in his eighties No problems noted. Grandmother , did have breast cancer but in her eighties of unknown cause No problems noted. Father , He in his sixties had had three strokes and high blood pressure He had had a kidney removed perhaps from cancer Stroke Mother , in her mid seventies complications from smoking No problems noted. Daughter Age: 50 No problems noted. Daughter Age: 47 No problems noted. Daughter Age: 42 No problems noted. Brother , at age 7 of a stroke Stroke Grandmother (Maternal) Breast cancer Other No family history of adverse response to anesthesia No family history of bleeding disorder Denies family history of Ovarian cancer Prostate cancer Myocardial infarction Colorectal cancer Social History Smoking Status: Current every day smoker Tobacco Type: Cigarettes Age Started Using Tobacco: 10; packs per day: 0.5; Cigarettes Per Day: 10; Second Hand Exposure: No; Hx Alcohol Use: No Hx Substance Use: No Preferred Language: Bruneian Communication Ability: Effective Visual Impairment: Partially Limited Hearing Ability: 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 Beliefs That Will Affect Care: None marital status: Current Living Situation: Significant Other current occupational status: retired How many Children do You have: 3 Feels Safe at Home: Yes Childhood Exposure to Second-Hand Smoke: Yes (Both parents smoked ) Diet Comment: Diabetic diet caffeine: Yes (Coffee tea) during the past year weight has: remained stable Dental Care, Regularly: No Physical Activity Frequency: Does not Exercise Seatbelt Use: always Sunscreen Use: No Do you think of yourself as: straight/heterosexual Assistive Devices: None Review of Systems Review of Systems: All systems reviewed & are unremarkable except as noted in HPI & below Physical Exam Constitutional: WD/WN, vitals as above Eyes: PERRL, conjunctivae normal, anicteric sclerae ENMT: external ear and nose normal, oropharynx normal Neck: trachea midline, no thyromegaly Respiratory: normal respiratory effort, lungs clear to auscultation Cardiovascular: RRR, no murmur, no edema Gastrointestinal (Abdomen): normal bowel sounds, soft, nontender, no hepatosplenomegaly Musculoskeletal: Extremities: no cyanosis and no clubbing Results & Data ([facility]) Vital Signs (Past 12 Hours) Vital Signs Temp Pulse Pulse Resp BP BP Pulse Ox 12/29/21 05:13 18 12/29/21 03:32 36.7 C 73 18 134/70 96 12/28/21 22:21 107 H 12/28/21 23:34 37.2 C 93 H 20 127/80 97 O2 Del Method 12/29/21 05:13 Room Air 12/29/21 03:32 Room Air 12/28/21 22:21 12/28/21 23:34 Room Air Laboratory Results 12/29/21 12/29/21 12/29/21 Range/Units 07:34 06:29 06:29 WBC (4.8-10.8) K/ul RBC (4.63-6.08) M/uL Hgb (14.0-18.0) g/dl Hct (40.1-51.0) % MCV (80.0-100.0) fL MCH (25.0-34.0) pg MCHC (32.0-36.0) g/dL RDW Std Deviation (36.4-46.3) fL RDW Coeff of Josie (11.5-14.5) % Plt Count (130-400) K/uL MPV (9.4-12.4) fL Immature Gran % (Auto) Neut % (Auto) Lymph % (Auto) Weakley % (Auto) Eos % (Auto) Baso % (Auto) Neut # (Auto) Lymph # (Auto) Weakley # (Auto) Eos # (Auto) Baso # (Auto) Immature Gran # (Auto) Neutrophils % (Manual) Band Neutrophils % Lymphocytes % (Manual) Prolymphocyte % Reactive Lymphs % (Man) Monocytes % (Manual) Eosinophils % (Manual) Basophils % (Manual) Metamyelocytes % (Man) Myelocytes % (Man) Promyelocytes % (Man) Blast Cells % (Manual) Plasma Cell % (Manual) Other Cells % Nucleated RBC % Neutrophils # (Manual) Band Neutrophils # Total Absolute Neuts Lymphocytes # (Manual) Prolymphocyte # Reactive Lymphs # Total Abs Lymphocytes Monocytes # (Manual) Eosinophils # (Manual) Basophils # (Manual) Metamyelocytes # (Man) Myelocytes # (Manual) Promyelocytes # (Man) Blast Cells # (Man) Plasma Cell # (Manual) Other Cells # Nucleated RBCs # (Man) Hypersegmented Neuts Hyposegmented Neuts Hypogranular Neuts Large Granular Lymphs # Lrg Granular Lymphs Hairy Cells Smudge Cells Toxic Granulation Toxic Vacuolation Dohle Bodies Ludin Rods Hypogranular Platelets Clumped Platelets Giant Platelets Platelet Satelliting RBC Morphology Polychromasia Hypochromasia Poikilocytosis Basophilic Stippling Anisocytosis Microcytosis Macrocytosis Spherocytes Pappenheimer Bodies Sickle Cells Target Cells Tear Drop Cells Ovalocytes Stomatocytes Barrera-Diablo Bodies Echinocytes Acanthocytes (Spur) Rouleaux RBC Agglutinates Schistocytes Sezary Cell PT (9.0-12.0) Seconds INR (0.9-1.1) APTT (21.0-31.0) Seconds PTT Ratio PT Mix Interpretation PTT Mix Interpretation Sodium 140 (136-145) mmol/L Potassium 3.9 (3.5-5.1) mmol/L Chloride 115 H (98-107) mmol/L Carbon Dioxide 15 L (21-32) mmol/L Anion Gap 10 (3-11) BUN 66 H (6-23) mg/dl Creatinine 4.98 H* (0.6-1.4) mg/dl Est Cr Clr Drug Dosing 10.9 ml/min Est GFR ( Amer) 12.3 ml/min Est GFR (Non-Af Amer) 10.6 ml/min BUN/Creatinine Ratio 13.3 (10-20) Glucose 81 (70-99(Fasting)) mg/dl POC Glucose 107 H (70-99) mg/dl Calcium 7.6 L (8.5-10.1) mg/dl Magnesium (1.7-2.4) mg/dl Total Bilirubin (0.2-1.0) mg/dl AST (13-39) U/L ALT (7-52) U/L Alkaline Phosphatase (34-104) U/L Total Protein (6.0-8.3) gm/dl Albumin (3.4-5.0) gm/dl Globulin (2.5-4.0) gm/dl Albumin/Globulin Ratio (0.9-2) Vitamin B12 339 (180-914) pg/ml Folate 13.73 (>5.38) ng/ml Stl C. cayetanensis PCR (NotDetected) Stool Rotavirus A PCR (NotDetected) Stl Adenov F 40/41 PCR (NotDetected) Stool Astrovirus (PCR) (NotDetected) Stool Campylobacter PCR (NotDetected) Stl C. diff Tox A/B PCR (NotDetected) Stool Cryptosporidium PCR (NotDetected) Stl E.coli Shiga Tox PCR (NotDetected) Stl Enterotoxigenic E PCR (NotDetected) Stool EPEC (PCR) (NotDetected) Stool EAEC (PCR) (NotDetected) Stl E. histolytica PCR (NotDetected) Stool Giardia Lamblia PCR (NotDetected) Stool Salmonella PCR (NotDetected) Stool Sapovirus (PCR) (NotDetected) Stl P. shigelloides PCR (NotDetected) Stl Shigella/EIEC PCR (NotDetected) St Y.enterocolitica PCR (NotDetected) Stool Vibrio (PCR) (NotDetected) Stl Vibrio cholerae PCR (NotDetected) Stl Norovirus GI/GII PCR (NotDetected) Blood Parasites ID Blood Type Antibody Screen Crossmatch 09/06/22 09/06/22 09/05/22 Range/Units 06:29 06:29 20:09 WBC 0.48 L* (4.8-10.8) K/ul RBC 2.36 L (4.63-6.08) M/uL Hgb 7.1 L (14.0-18.0) g/dl Hct 21.7 L (40.1-51.0) % MCV 91.9 (80.0-100.0) fL MCH 30.1 (25.0-34.0) pg MCHC 32.7 (32.0-36.0) g/dL RDW Std Deviation 55.0 H (36.4-46.3) fL RDW Coeff of Josie 16.9 H (11.5-14.5) % Plt Count 18 L* (130-400) K/uL MPV 9.1 L (9.4-12.4) fL Immature Gran % (Auto) Cancelled Neut % (Auto) Cancelled Lymph % (Auto) Cancelled Weakley % (Auto) Cancelled Eos % (Auto) Cancelled Baso % (Auto) Cancelled Neut # (Auto) Cancelled Lymph # (Auto) Cancelled Weakley # (Auto) Cancelled Eos # (Auto) Cancelled Baso # (Auto) Cancelled Immature Gran # (Auto) Cancelled Neutrophils % (Manual) Cancelled Band Neutrophils % Cancelled Lymphocytes % (Manual) Cancelled Prolymphocyte % Cancelled Reactive Lymphs % (Man) Cancelled Monocytes % (Manual) Cancelled Eosinophils % (Manual) Cancelled Basophils % (Manual) Cancelled Metamyelocytes % (Man) Cancelled Myelocytes % (Man) Cancelled Promyelocytes % (Man) Cancelled Blast Cells % (Manual) Cancelled Plasma Cell % (Manual) Cancelled Other Cells % Cancelled Nucleated RBC % Cancelled Neutrophils # (Manual) Cancelled Band Neutrophils # Cancelled Total Absolute Neuts Cancelled Lymphocytes # (Manual) Cancelled Prolymphocyte # Cancelled Reactive Lymphs # Cancelled Total Abs Lymphocytes Cancelled Monocytes # (Manual) Cancelled Eosinophils # (Manual) Cancelled Basophils # (Manual) Cancelled Metamyelocytes # (Man) Cancelled Myelocytes # (Manual) Cancelled Promyelocytes # (Man) Cancelled Blast Cells # (Man) Cancelled Plasma Cell # (Manual) Cancelled Other Cells # Cancelled Nucleated RBCs # (Man) Cancelled Hypersegmented Neuts Cancelled Hyposegmented Neuts Cancelled Hypogranular Neuts Cancelled Large Granular Lymphs Cancelled # Lrg Granular Lymphs Cancelled Hairy Cells Cancelled Smudge Cells Cancelled Toxic Granulation Cancelled Toxic Vacuolation Cancelled Dohle Bodies Cancelled Ludin Rods Cancelled Hypogranular Platelets Cancelled Clumped Platelets Cancelled Giant Platelets Cancelled Platelet Satelliting Cancelled RBC Morphology Cancelled Polychromasia Cancelled Hypochromasia Cancelled Poikilocytosis Cancelled Basophilic Stippling Cancelled Anisocytosis Cancelled Microcytosis Cancelled Macrocytosis Cancelled Spherocytes Cancelled Pappenheimer Bodies Cancelled Sickle Cells Cancelled Target Cells Cancelled Tear Drop Cells Cancelled Ovalocytes Cancelled Stomatocytes Cancelled Barrera-Diablo Bodies Cancelled Echinocytes Cancelled Acanthocytes (Spur) Cancelled Rouleaux Cancelled RBC Agglutinates Cancelled Schistocytes Cancelled Sezary Cell Cancelled PT (9.0-12.0) Seconds INR (0.9-1.1) APTT (21.0-31.0) Seconds PTT Ratio PT Mix Interpretation PTT Mix Interpretation Sodium 140 (136-145) mmol/L Potassium 3.8 (3.5-5.1) mmol/L Chloride 115 H (98-107) mmol/L Carbon Dioxide 15 L (21-32) mmol/L Anion Gap 10 (3-11) BUN 66 H (6-23) mg/dl Creatinine 5.01 H* (0.6-1.4) mg/dl Est Cr Clr Drug Dosing 10.8 ml/min Est GFR ( Amer) 12.2 ml/min Est GFR (Non-Af Amer) 10.5 ml/min BUN/Creatinine Ratio 13.2 (10-20) Glucose 82 (70-99(Fasting)) mg/dl POC Glucose 88 (70-99) mg/dl Calcium 7.6 L (8.5-10.1) mg/dl Magnesium 1.7 (1.7-2.4) mg/dl Total Bilirubin 0.5 (0.2-1.0) mg/dl AST 11 L (13-39) U/L ALT 10 (7-52) U/L Alkaline Phosphatase 74 (34-104) U/L Total Protein 4.8 L (6.0-8.3) gm/dl Albumin 2.6 L (3.4-5.0) gm/dl Globulin 2.2 L (2.5-4.0) gm/dl Albumin/Globulin Ratio 1.2 (0.9-2) Vitamin B12 (180-914) pg/ml Folate (>5.38) ng/ml Stl C. cayetanensis PCR (NotDetected) Stool Rotavirus A PCR (NotDetected) Stl Adenov F 40/41 PCR (NotDetected) Stool Astrovirus (PCR) (NotDetected) Stool Campylobacter PCR (NotDetected) Stl C. diff Tox A/B PCR (NotDetected) Stool Cryptosporidium PCR (NotDetected) Stl E.coli Shiga Tox PCR (NotDetected) Stl Enterotoxigenic E PCR (NotDetected) Stool EPEC (PCR) (NotDetected) Stool EAEC (PCR) (NotDetected) Stl E. histolytica PCR (NotDetected) Stool Giardia Lamblia PCR (NotDetected) Stool Salmonella PCR (NotDetected) Stool Sapovirus (PCR) (NotDetected) Stl P. shigelloides PCR (NotDetected) Stl Shigella/EIEC PCR (NotDetected) St Y.enterocolitica PCR (NotDetected) Stool Vibrio (PCR) (NotDetected) Stl Vibrio cholerae PCR (NotDetected) Stl Norovirus GI/GII PCR (NotDetected) Blood Parasites ID Cancelled Blood Type Antibody Screen Crossmatch 12/28/21 12/28/21 12/28/21 Range/Units 19:17 19:17 19:17 WBC (4.8-10.8) K/ul RBC (4.63-6.08) M/uL Hgb (14.0-18.0) g/dl Hct (40.1-51.0) % MCV (80.0-100.0) fL MCH (25.0-34.0) pg MCHC (32.0-36.0) g/dL RDW Std Deviation (36.4-46.3) fL RDW Coeff of Josie (11.5-14.5) % Plt Count 22 L* D (130-400) K/uL MPV (9.4-12.4) fL Immature Gran % (Auto) Neut % (Auto) Lymph % (Auto) Weakley % (Auto) Eos % (Auto) Baso % (Auto) Neut # (Auto) Lymph # (Auto) Weakley # (Auto) Eos # (Auto) Baso # (Auto) Immature Gran # (Auto) Neutrophils % (Manual) Band Neutrophils % Lymphocytes % (Manual) Prolymphocyte % Reactive Lymphs % (Man) Monocytes % (Manual) Eosinophils % (Manual) Basophils % (Manual) Metamyelocytes % (Man) Myelocytes % (Man) Promyelocytes % (Man) Blast Cells % (Manual) Plasma Cell % (Manual) Other Cells % Nucleated RBC % Neutrophils # (Manual) Band Neutrophils # Total Absolute Neuts Lymphocytes # (Manual) Prolymphocyte # Reactive Lymphs # Total Abs Lymphocytes Monocytes # (Manual) Eosinophils # (Manual) Basophils # (Manual) Metamyelocytes # (Man) Myelocytes # (Manual) Promyelocytes # (Man) Blast Cells # (Man) Plasma Cell # (Manual) Other Cells # Nucleated RBCs # (Man) Hypersegmented Neuts Hyposegmented Neuts Hypogranular Neuts Large Granular Lymphs # Lrg Granular Lymphs Hairy Cells Smudge Cells Toxic Granulation Toxic Vacuolation Dohle Bodies Ludin Rods Hypogranular Platelets Clumped Platelets Giant Platelets Platelet Satelliting RBC Morphology Polychromasia Hypochromasia Poikilocytosis Basophilic Stippling Anisocytosis Microcytosis Macrocytosis Spherocytes Pappenheimer Bodies Sickle Cells Target Cells Tear Drop Cells Ovalocytes Stomatocytes Barrera-Diablo Bodies Echinocytes Acanthocytes (Spur) Rouleaux RBC Agglutinates Schistocytes Sezary Cell PT 10.9 (9.0-12.0) Seconds INR 1.0 (0.9-1.1) APTT 37.3 H (21.0-31.0) Seconds PTT Ratio 1.4 PT Mix Interpretation PT Corrected PTT Mix Interpretation Factor Inhibitor Sodium 141 (136-145) mmol/L Potassium 3.9 (3.5-5.1) mmol/L Chloride 116 H (98-107) mmol/L Carbon Dioxide 14 L (21-32) mmol/L Anion Gap 11 (3-11) BUN 64 H (6-23) mg/dl Creatinine 4.90 H* (0.6-1.4) mg/dl Est Cr Clr Drug Dosing 12.4 ml/min Est GFR ( Amer) 12.5 ml/min Est GFR (Non-Af Amer) 10.8 ml/min BUN/Creatinine Ratio 13.1 (10-20) Glucose 84 (70-99(Fasting)) mg/dl POC Glucose (70-99) mg/dl Calcium 7.7 L (8.5-10.1) mg/dl Magnesium (1.7-2.4) mg/dl Total Bilirubin (0.2-1.0) mg/dl AST (13-39) U/L ALT (7-52) U/L Alkaline Phosphatase (34-104) U/L Total Protein (6.0-8.3) gm/dl Albumin (3.4-5.0) gm/dl Globulin (2.5-4.0) gm/dl Albumin/Globulin Ratio (0.9-2) Vitamin B12 (180-914) pg/ml Folate (>5.38) ng/ml Stl C. cayetanensis PCR (NotDetected) Stool Rotavirus A PCR (NotDetected) Stl Adenov F 40/41 PCR (NotDetected) Stool Astrovirus (PCR) (NotDetected) Stool Campylobacter PCR (NotDetected) Stl C. diff Tox A/B PCR (NotDetected) Stool Cryptosporidium PCR (NotDetected) Stl E.coli Shiga Tox PCR (NotDetected) Stl Enterotoxigenic E PCR (NotDetected) Stool EPEC (PCR) (NotDetected) Stool EAEC (PCR) (NotDetected) Stl E. histolytica PCR (NotDetected) Stool Giardia Lamblia PCR (NotDetected) Stool Salmonella PCR (NotDetected) Stool Sapovirus (PCR) (NotDetected) Stl P. shigelloides PCR (NotDetected) Stl Shigella/EIEC PCR (NotDetected) St Y.enterocolitica PCR (NotDetected) Stool Vibrio (PCR) (NotDetected) Stl Vibrio cholerae PCR (NotDetected) Stl Norovirus GI/GII PCR (NotDetected) Blood Parasites ID Blood Type Antibody Screen Crossmatch 12/28/21 12/28/21 12/28/21 Range/Units 16:47 14:05 12:34 WBC (4.8-10.8) K/ul RBC (4.63-6.08) M/uL Hgb (14.0-18.0) g/dl Hct (40.1-51.0) % MCV (80.0-100.0) fL MCH (25.0-34.0) pg MCHC (32.0-36.0) g/dL RDW Std Deviation (36.4-46.3) fL RDW Coeff of Josie (11.5-14.5) % Plt Count (130-400) K/uL MPV (9.4-12.4) fL Immature Gran % (Auto) Neut % (Auto) Lymph % (Auto) Weakley % (Auto) Eos % (Auto) Baso % (Auto) Neut # (Auto) Lymph # (Auto) Weakley # (Auto) Eos # (Auto) Baso # (Auto) Immature Gran # (Auto) Neutrophils % (Manual) Band Neutrophils % Lymphocytes % (Manual) Prolymphocyte % Reactive Lymphs % (Man) Monocytes % (Manual) Eosinophils % (Manual) Basophils % (Manual) Metamyelocytes % (Man) Myelocytes % (Man) Promyelocytes % (Man) Blast Cells % (Manual) Plasma Cell % (Manual) Other Cells % Nucleated RBC % Neutrophils # (Manual) Band Neutrophils # Total Absolute Neuts Lymphocytes # (Manual) Prolymphocyte # Reactive Lymphs # Total Abs Lymphocytes Monocytes # (Manual) Eosinophils # (Manual) Basophils # (Manual) Metamyelocytes # (Man) Myelocytes # (Manual) Promyelocytes # (Man) Blast Cells # (Man) Plasma Cell # (Manual) Other Cells # Nucleated RBCs # (Man) Hypersegmented Neuts Hyposegmented Neuts Hypogranular Neuts Large Granular Lymphs # Lrg Granular Lymphs Hairy Cells Smudge Cells Toxic Granulation Toxic Vacuolation Dohle Bodies Ludin Rods Hypogranular Platelets Clumped Platelets Giant Platelets Platelet Satelliting RBC Morphology Polychromasia Hypochromasia Poikilocytosis Basophilic Stippling Anisocytosis Microcytosis Macrocytosis Spherocytes Pappenheimer Bodies Sickle Cells Target Cells Tear Drop Cells Ovalocytes Stomatocytes Bennylly Bodies Echinocytes Acanthocytes (Spur) Rouleaux RBC Agglutinates Schistocytes Sezary Cell PT (9.0-12.0) Seconds INR (0.9-1.1) APTT (21.0-31.0) Seconds PTT Ratio PT Mix Interpretation PTT Mix Interpretation Sodium (136-145) mmol/L Potassium (3.5-5.1) mmol/L Chloride (98-107) mmol/L Carbon Dioxide (21-32) mmol/L Anion Gap (3-11) BUN (6-23) mg/dl Creatinine (0.6-1.4) mg/dl Est Cr Clr Drug Dosing ml/min Est GFR ( Amer) ml/min Est GFR (Non-Af Amer) ml/min BUN/Creatinine Ratio (10-20) Glucose (70-99(Fasting)) mg/dl POC Glucose 89 106 H 77 (70-99) mg/dl Calcium (8.5-10.1) mg/dl Magnesium (1.7-2.4) mg/dl Total Bilirubin (0.2-1.0) mg/dl AST (13-39) U/L ALT (7-52) U/L Alkaline Phosphatase (34-104) U/L Total Protein (6.0-8.3) gm/dl Albumin (3.4-5.0) gm/dl Globulin (2.5-4.0) gm/dl Albumin/Globulin Ratio (0.9-2) Vitamin B12 (180-914) pg/ml Folate (>5.38) ng/ml Stl C. cayetanensis PCR (NotDetected) Stool Rotavirus A PCR (NotDetected) Stl Adenov F 40/41 PCR (NotDetected) Stool Astrovirus (PCR) (NotDetected) Stool Campylobacter PCR (NotDetected) Stl C. diff Tox A/B PCR (NotDetected) Stool Cryptosporidium PCR (NotDetected) Stl E.coli Shiga Tox PCR (NotDetected) Stl Enterotoxigenic E PCR (NotDetected) Stool EPEC (PCR) (NotDetected) Stool EAEC (PCR) (NotDetected) Stl E. histolytica PCR (NotDetected) Stool Giardia Lamblia PCR (NotDetected) Stool Salmonella PCR (NotDetected) Stool Sapovirus (PCR) (NotDetected) Stl P. shigelloides PCR (NotDetected) Stl Shigella/EIEC PCR (NotDetected) St Y.enterocolitica PCR (NotDetected) Stool Vibrio (PCR) (NotDetected) Stl Vibrio cholerae PCR (NotDetected) Stl Norovirus GI/GII PCR (NotDetected) Blood Parasites ID Blood Type Antibody Screen Crossmatch 12/28/21 12/28/21 12/28/21 Range/Units 11:59 11:31 11:30 WBC (4.8-10.8) K/ul RBC (4.63-6.08) M/uL Hgb (14.0-18.0) g/dl Hct (40.1-51.0) % MCV (80.0-100.0) fL MCH (25.0-34.0) pg MCHC (32.0-36.0) g/dL RDW Std Deviation (36.4-46.3) fL RDW Coeff of Josie (11.5-14.5) % Plt Count (130-400) K/uL MPV (9.4-12.4) fL Immature Gran % (Auto) Neut % (Auto) Lymph % (Auto) Weakley % (Auto) Eos % (Auto) Baso % (Auto) Neut # (Auto) Lymph # (Auto) Weakley # (Auto) Eos # (Auto) Baso # (Auto) Immature Gran # (Auto) Neutrophils % (Manual) Band Neutrophils % Lymphocytes % (Manual) Prolymphocyte % Reactive Lymphs % (Man) Monocytes % (Manual) Eosinophils % (Manual) Basophils % (Manual) Metamyelocytes % (Man) Myelocytes % (Man) Promyelocytes % (Man) Blast Cells % (Manual) Plasma Cell % (Manual) Other Cells % Nucleated RBC % Neutrophils # (Manual) Band Neutrophils # Total Absolute Neuts Lymphocytes # (Manual) Prolymphocyte # Reactive Lymphs # Total Abs Lymphocytes Monocytes # (Manual) Eosinophils # (Manual) Basophils # (Manual) Metamyelocytes # (Man) Myelocytes # (Manual) Promyelocytes # (Man) Blast Cells # (Man) Plasma Cell # (Manual) Other Cells # Nucleated RBCs # (Man) Hypersegmented Neuts Hyposegmented Neuts Hypogranular Neuts Large Granular Lymphs # Lrg Granular Lymphs Hairy Cells Smudge Cells Toxic Granulation Toxic Vacuolation Dohle Bodies Ludin Rods Hypogranular Platelets Clumped Platelets Giant Platelets Platelet Satelliting RBC Morphology Polychromasia Hypochromasia Poikilocytosis Basophilic Stippling Anisocytosis Microcytosis Macrocytosis Spherocytes Pappenheimer Bodies Sickle Cells Target Cells Tear Drop Cells Ovalocytes Stomatocytes Barrera-Diablo Bodies Echinocytes Acanthocytes (Spur) Rouleaux RBC Agglutinates Schistocytes Sezary Cell PT (9.0-12.0) Seconds INR (0.9-1.1) APTT (21.0-31.0) Seconds PTT Ratio PT Mix Interpretation PTT Mix Interpretation Sodium (136-145) mmol/L Potassium (3.5-5.1) mmol/L Chloride (98-107) mmol/L Carbon Dioxide (21-32) mmol/L Anion Gap (3-11) BUN (6-23) mg/dl Creatinine (0.6-1.4) mg/dl Est Cr Clr Drug Dosing ml/min Est GFR ( Amer) ml/min Est GFR (Non-Af Amer) ml/min BUN/Creatinine Ratio (10-20) Glucose (70-99(Fasting)) mg/dl POC Glucose 63 L* 67 L* 69 L* (70-99) mg/dl Calcium (8.5-10.1) mg/dl Magnesium (1.7-2.4) mg/dl Total Bilirubin (0.2-1.0) mg/dl AST (13-39) U/L ALT (7-52) U/L Alkaline Phosphatase (34-104) U/L Total Protein (6.0-8.3) gm/dl Albumin (3.4-5.0) gm/dl Globulin (2.5-4.0) gm/dl Albumin/Globulin Ratio (0.9-2) Vitamin B12 (180-914) pg/ml Folate (>5.38) ng/ml Stl C. cayetanensis PCR (NotDetected) Stool Rotavirus A PCR (NotDetected) Stl Adenov F 40/41 PCR (NotDetected) Stool Astrovirus (PCR) (NotDetected) Stool Campylobacter PCR (NotDetected) Stl C. diff Tox A/B PCR (NotDetected) Stool Cryptosporidium PCR (NotDetected) Stl E.coli Shiga Tox PCR (NotDetected) Stl Enterotoxigenic E PCR (NotDetected) Stool EPEC (PCR) (NotDetected) Stool EAEC (PCR) (NotDetected) Stl E. histolytica PCR (NotDetected) Stool Giardia Lamblia PCR (NotDetected) Stool Salmonella PCR (NotDetected) Stool Sapovirus (PCR) (NotDetected) Stl P. shigelloides PCR (NotDetected) Stl Shigella/EIEC PCR (NotDetected) St Y.enterocolitica PCR (NotDetected) Stool Vibrio (PCR) (NotDetected) Stl Vibrio cholerae PCR (NotDetected) Stl Norovirus GI/GII PCR (NotDetected) Blood Parasites ID Blood Type Antibody Screen Crossmatch 12/28/21 12/28/21 Range/Units 09:56 00:11 WBC (4.8-10.8) K/ul RBC (4.63-6.08) M/uL Hgb (14.0-18.0) g/dl Hct (40.1-51.0) % MCV (80.0-100.0) fL MCH (25.0-34.0) pg MCHC (32.0-36.0) g/dL RDW Std Deviation (36.4-46.3) fL RDW Coeff of Josie (11.5-14.5) % Plt Count (130-400) K/uL MPV (9.4-12.4) fL Immature Gran % (Auto) Neut % (Auto) Lymph % (Auto) Weakley % (Auto) Eos % (Auto) Baso % (Auto) Neut # (Auto) Lymph # (Auto) Weakley # (Auto) Eos # (Auto) Baso # (Auto) Immature Gran # (Auto) Neutrophils % (Manual) Band Neutrophils % Lymphocytes % (Manual) Prolymphocyte % Reactive Lymphs % (Man) Monocytes % (Manual) Eosinophils % (Manual) Basophils % (Manual) Metamyelocytes % (Man) Myelocytes % (Man) Promyelocytes % (Man) Blast Cells % (Manual) Plasma Cell % (Manual) Other Cells % Nucleated RBC % Neutrophils # (Manual) Band Neutrophils # Total Absolute Neuts Lymphocytes # (Manual) Prolymphocyte # Reactive Lymphs # Total Abs Lymphocytes Monocytes # (Manual) Eosinophils # (Manual) Basophils # (Manual) Metamyelocytes # (Man) Myelocytes # (Manual) Promyelocytes # (Man) Blast Cells # (Man) Plasma Cell # (Manual) Other Cells # Nucleated RBCs # (Man) Hypersegmented Neuts Hyposegmented Neuts Hypogranular Neuts Large Granular Lymphs # Lrg Granular Lymphs Hairy Cells Smudge Cells Toxic Granulation Toxic Vacuolation Dohle Bodies Ludin Rods Hypogranular Platelets Clumped Platelets Giant Platelets Platelet Satelliting RBC Morphology Polychromasia Hypochromasia Poikilocytosis Basophilic Stippling Anisocytosis Microcytosis Macrocytosis Spherocytes Pappenheimer Bodies Sickle Cells Target Cells Tear Drop Cells Ovalocytes Stomatocytes Barrera-Diablo Bodies Echinocytes Acanthocytes (Spur) Rouleaux RBC Agglutinates Schistocytes Sezary Cell PT (9.0-12.0) Seconds INR (0.9-1.1) APTT (21.0-31.0) Seconds PTT Ratio PT Mix Interpretation PTT Mix Interpretation Sodium (136-145) mmol/L Potassium (3.5-5.1) mmol/L Chloride (98-107) mmol/L Carbon Dioxide (21-32) mmol/L Anion Gap (3-11) BUN (6-23) mg/dl Creatinine (0.6-1.4) mg/dl Est Cr Clr Drug Dosing ml/min Est GFR ( Amer) ml/min Est GFR (Non-Af Amer) ml/min BUN/Creatinine Ratio (10-20) Glucose (70-99(Fasting)) mg/dl POC Glucose (70-99) mg/dl Calcium (8.5-10.1) mg/dl Magnesium (1.7-2.4) mg/dl Total Bilirubin (0.2-1.0) mg/dl AST (13-39) U/L ALT (7-52) U/L Alkaline Phosphatase (34-104) U/L Total Protein (6.0-8.3) gm/dl Albumin (3.4-5.0) gm/dl Globulin (2.5-4.0) gm/dl Albumin/Globulin Ratio (0.9-2) Vitamin B12 (180-914) pg/ml Folate (>5.38) ng/ml Stl C. cayetanensis PCR Not Detected (NotDetected) Stool Rotavirus A PCR Not Detected (NotDetected) Stl Adenov F 40/41 PCR Not Detected (NotDetected) Stool Astrovirus (PCR) Not Detected (NotDetected) Stool Campylobacter PCR Not Detected (NotDetected) Stl C. diff Tox A/B PCR Not Detected (NotDetected) Stool Cryptosporidium PCR Not Detected (NotDetected) Stl E.coli Shiga Tox PCR Not Detected (NotDetected) Stl Enterotoxigenic E PCR Not Detected (NotDetected) Stool EPEC (PCR) Not Detected (NotDetected) Stool EAEC (PCR) Not Detected (NotDetected) Stl E. histolytica PCR Not Detected (NotDetected) Stool Giardia Lamblia PCR Not Detected (NotDetected) Stool Salmonella PCR Not Detected (NotDetected) Stool Sapovirus (PCR) Not Detected (NotDetected) Stl P. shigelloides PCR Not Detected (NotDetected) Stl Shigella/EIEC PCR Not Detected (NotDetected) St Y.enterocolitica PCR Not Detected (NotDetected) Stool Vibrio (PCR) Not Detected (NotDetected) Stl Vibrio cholerae PCR Not Detected (NotDetected) Stl Norovirus GI/GII PCR Not Detected (NotDetected) Blood Parasites ID Blood Type O Positive Antibody Screen NEGATIVE Crossmatch See Detail Diagnostic Findings CT suggests proctitis
[2021-12-29] MEDS: MAGNESIUM SULFATE / D5W 1 GM/100 ML BAG IV SCH ×2 (09:45→13:02)
--- NOTE | 2021-12-29 09:54 | Urology Progress Note ---
Date of Service December 29, 2021 Assessment & Plan (1) Acute renal failure superimposed on stage 5 chronic kidney disease, not on chronic dialysis: (2) Chemotherapy-induced fatigue: (3) 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: Plan 76yo M with a hx of bladder ca w/lung mets and right neph tube admittedwith weakness and diarrhea. - CT imaging reviewed showing right nephroureteral stent in place w/increase in moderate right hydronephrosis. - Right nephroureteral stent currently clamped. - Pt afebrile, labs reviewed - Creatinine 4.98 (5.01 yesterday), hemoglobin 7.1 (receiving prbc transfusion). - UC&S 12/24 negative; Blood cultures 12/28 prelim no growth x 24 hours - On IV Cefepime and Daptomycin, follow cultures. - Discussed unclamping of nephrostomy tube to see if this improves kidney function, pt declines at this time. - Continue with supportive care and antibiotic therapy. - Urology will follow. - Pt reassessed this afternoon. - Again discussed recommendation to unclamp neph tube. Pt was agreeable. - Nephrostomy tube was uncapped and placed to drainage. - Right neph tube currently draining light pink urine. - Will need to ensure he has a nephroureteral drain exchange scheduled following discharge. - Continue supportive care. - Urology will follow. Admission and Anticipated Discharge Date Admission Date: December 28, 2021 Supervising Physician Co-Signing Physician Notes Discussed patient with TEENA. Agree with plan. Subjective Patient examined at bedside this AM. Awake, resting in bed on arrival. Reports he is still not feeling well. Feels weak. Having intermittent diarrhea. Still with pain to right flank at site of nephrostomy tube. States he would like to have neph tube removed. Reports he is voiding without issue. Feels he is emptying his bladder well. No hematuria or dysuria. No fevers or chills. Denies nausea or vomiting. Of note, right [facility]. Pt states Dr. Harry office is supposed to contact him this month to arrange a visit to schedule next nephroureteral stent exchange. Review of Systems Constitutional: as per Subjective / HPI Gastrointestinal: as per Subjective / HPI Genitourinary: + as per Subjective / HPI Physical Exam Constitutional: + ill appearing; no acute distress Respiratory: no respiratory distress and no labored breathing Gastrointestinal (Abdomen): Right nephrostomy tube intact. No drainage noted or tenderness with palpation around site. Nephrostomy tube flushed without difficulty. Nephrostomy tube was uncapped and placed to drainage with light pink urine draining. Neurologic: awake Psychiatric: Orientation: alert, oriented x 3 and cooperative Results & Data ([facility]) Vital Signs (Past 12 Hours) Vital Signs Temp Pulse Pulse Resp BP BP BP 12/29/21 09:31 36.5 C 77 18 166/86 H 12/29/21 05:13 18 12/29/21 03:32 36.7 C 73 18 134/70 12/28/21 22:21 107 H 12/28/21 23:34 37.2 C 93 H 20 127/80 Pulse Ox O2 Del Method 12/29/21 09:31 96 12/29/21 05:13 Room Air 12/29/21 03:32 96 Room Air 12/28/21 22:21 12/28/21 23:34 97 Room Air PG Care Time/CCT Total # of Minutes Spent Total Time Spent with Patient: Total time spent is greater than 50% in coordination of care (as documented) at patient's floor/unit and/or counseling patient: Coding Level of Care Code 22453 Subseq Hosp Care Lvl 2 Diagnoses Acute renal failure superimposed on stage 5 chronic kidney disease, not on chronic dialysis N17.9; N18.5 Chemotherapy-induced fatigue R53.83; T45.1X5A 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 C67.9; C78.00
--- NOTE | 2021-12-29 10:33 | Nephrology Consultation ---
Date of Consultation December 29, 2021 Assessment & Plan (1) Acute kidney injury: (2) CKD (chronic kidney disease) stage 5, GFR less than 15 ml/min: (3) Symptomatic anemia: (4) Diarrhea: (5) Hydronephrosis: (6) Hypertension: Plan 76 the year old gentlemen with the stage IV/5 CKD in the setting of right-sided hydronephrosis with metastatic bladder cancer, hypertension, diabetes, lately creatinine has been staying around 4.0. Admitted with generalized weakness and diarrhea, diarrhea seems to have stopped and most likely related to prior chemotherapy. On admission noted to have ALESSANDRA with creatinine 5.0 associated with metabolic acidosis but normal potassium. Noted to have critical pancytopenia again most likely chemotherapy induced. CT showed a worsening right-sided hydronephrosis while the nephrostomy tube has been clamped. Urology recommended unclamping the nephrostomy but patient refused at this time because of severe ongoing pain. --continue to monitor renal function electrolyte and correct electrolyte abnormality as needed. agree with continuing on bicarb drip. Had long discussion with patient and patient made the decision to not to consider dialysis at this time even if it is needed. Encourage patient to consider unclamping of the nephrostomy to as Urology suggested -- dose medications for eGFR less than 15, encourage hydration, avoid all nephrotoxic medications. Thank you for allowing me to participate in your patient's care. It was a pleasure to see Patrick. History of Present Illness Reason for Consultation: Acute kidney injury with advanced CKD. Attending Physician: Hannah Burrows MD History of Present Illness Mr. Crews is a 76 year old gentleman with past medical history significant for stage IV/5 CKD, hypertension, BPH, coronary artery disease, diabetes, history of metastatic bladder cancer causing obstructive uropathy, admitted to the hospital with generalized weakness, ALESSANDRA, diarrhea and obstructive uropathy. Nephrology consult was requested for further management of ALESSANDRA. EMR records are reviewed in detail during patient's visit. Bowel presented to ER yesterday with generalized weakness and ongoing diarrhea. Upon arrival he was noted to be tachypneic with heart rate in 130s, blood pressure otherwise acceptable. Lab showed significant leukopenia, anemia and thrombocytopenia. Creatinine was 5.0 and BUN was 67. magnesium was 1.4. Potassium has been normal but has both gap and non gap metabolic acidosis. Chest x-ray was negative for any volume overload. CT abdomen pelvis showed worsening right-sided hydronephrosis with nephrostomy tube in place which was clamped several weeks ago. Was seen by Urology and planned to unclamp the nephrostomy tube however he refused it this morning because of severe pain. He was also seen by GI, and concluded diarrhea is related to the chemotherapy. Patient reports that the diarrhea currently stopped. Has stage IV/5 CKD, lately creatinine has been around for in the setting of obstructive uropathy with history of bladder cancer, FSGS, hypertension diabetes. Has been following with Dr. Garcia, previously he refused vascular surgery evaluation for vascular access for future dialysis. 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 during last oncology visit plan was to start on carboplatin / gemcitabine. He had a right nephroureterostomy tube placed by Dr. Tsai at [facility] on October 23 without complications. Creatinine had been elevated at 5.9 mg/dL prior to the procedure but improved to ~4 mg/dL. Admitted to hospital on November 29 with gross hematuria and obstructive urinary symptoms. He had uncapped the PCN and allowed it to drain when he developed clots and difficulty urinating. Dr. Awan performed cystoscopy, clot evacuation and fulguration on December 03. Findings of inflammation around the bladder wall associated with ure terostomy tube were noted. He was admitted to [facility] from November 16 through with a GI bleed and acute anemia requiring PRBC transfusion support. EGD and colonoscopy showed Gastritis and a non-bleeding duodenal ulcer,4 polyps removed from colon and a non bleeding AVM treated with APC. Overall he is in significant stress now because of back pain near the nephrostomy tube area. Allergies Allergy/AdvReac Type Severity Reaction Status Date / Time Iodinated Contrast Media AdvReac Intermediate Hypertensio Verified 12/28/21 00:51 n atorvastatin [From Lipitor] AdvReac Mild muscle Verified 12/28/21 00:51 aches Home Medications Medication Instructions Recorded Confirmed Type dulaglutide 0.75 mg/0.5 mL 0.75 mg (0.5 mL) subcut WEEKLY #2 09/19/19 12/28/21 Rx subcutaneous pen injector mL (Trulicity) albuterol sulfate 90 mcg/actuation 2 puff inhalation QID PRN 05/22/20 12/28/21 Rx aerosol inhaler (Ventolin HFA) shortness of breath or wheezing #18 grams calcitriol 0.25 mcg capsule 0.25 mcg PO QPM 07/17/21 12/28/21 History metoprolol succinate 100 mg 100 mg PO QPM #90 tabs 07/30/21 12/28/21 Rx tablet,extended release 24 hr levothyroxine 100 mcg tablet 100 mcg PO QAM #90 tabs 10/12/21 12/28/21 Rx (Synthroid) cetirizine 10 mg capsule 10 mg PO QAM 11/16/21 12/28/21 History cinacalcet 30 mg tablet 30 mg PO 3XWK 11/16/21 12/28/21 History fluticasone propionate 50 2 spray intranasal DAILY PRN 11/16/21 12/28/21 History mcg/actuation nasal Dyspnea spray,suspension lactobacillus combination no.4 3 3,000 mmu cells PO QAM 11/16/21 12/28/21 History billion cell capsule (Probiotic) pantoprazole 40 mg tablet,delayed 40 mg PO BID #60 tabs 11/19/21 12/28/21 Rx release (Protonix) allopurinol 300 mg tablet 300 mg PO QAM 11/29/21 12/28/21 History ferrous sulfate 325 mg (65 mg 325 mg PO 3XWK 11/29/21 12/28/21 History iron) tablet oxybutynin chloride 5 mg 5 mg PO QAM 11/29/21 12/28/21 History tablet,extended release 24 hr tamsulosin 0.4 mg capsule 0.4 mg PO BID 11/29/21 12/28/21 History rosuvastatin 5 mg tablet 5 mg PO QPM #90 tabs 12/10/21 12/28/21 Rx Carboplatin Tabs 1 tab PO .NAUSEA PRN prn after 12/24/21 12/28/21 History chemo Gemcitabine Pill 1 tab PO DIRECTED 12/24/21 12/28/21 History olanzapine 2.5 mg tablet 2.5 mg PO DIRECTED 12/24/21 12/28/21 History Patient History Medical History (Updated 12/29/21 @ 10:45 by Nereida Maddox MD) Acid reflux Acute duodenal ulcer with hemorrhage Acute kidney injury Adenomatous polyp of colon Atrial fibrillation with rapid ventricular response Benign essential hypertension Benign prostatic hyperplasia 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 Blood loss anemia CAD (coronary atherosclerotic disease) Chronic kidney disease STAGE IV Chronic obstructive pulmonary disease Diabetes mellitus, type 2 Diarrhea Hearing loss History of blood transfusion 01/2021 [facility] History of stroke without residual deficits OCCURRED DURING AAA REPAIR [facility] [place] 5[place]6 YRS 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-NO ISSUES SINCE Hyperlipidemia Hypothyroidism Past myocardial infarction Port-A-Cath in place Secondary hyperparathyroidism Subclavian artery aneurysm Vocal fold paralysis, left Surgical History H/O arthroscopy of knee H/O transurethral destruction of bladder lesion 08/17/2019 History of biopsy of bladder History of cardiac cath History of carpal tunnel release RIGHT History of cataract surgery BILATERAL History of colonoscopy History of cystoscopy 01/19/2020 History of esophagogastroduodenoscopy (EGD) History of lymph node biopsy Nephrostomy status R PCN placed by IR 10/23/2021 S/P AAA (abdominal aortic aneurysm) repair Status post biopsy of kidney Family History Grandfather , in his eighties No problems noted. Grandmother , young cause unknown No problems noted. Grandfather , in his eighties No problems noted. Grandmother , did have breast cancer but in her eighties of unknown cause No problems noted. Father , He in his sixties had had three strokes and high blood pressure He had had a kidney removed perhaps from cancer Stroke Mother , in her mid seventies complications from smoking No problems noted. Daughter Age: 50 No problems noted. Daughter Age: 47 No problems noted. Daughter Age: 42 No problems noted. Brother , at age 7 of a stroke Stroke Grandmother (Maternal) Breast cancer Other No family history of adverse response to anesthesia No family history of bleeding disorder Denies family history of Ovarian cancer Prostate cancer Myocardial infarction Colorectal cancer Social History Smoking Status: Current every day smoker Tobacco Type: Cigarettes Age Started Using Tobacco: 10; packs per day: 0.5; Cigarettes Per Day: 10; Second Hand Exposure: No; Hx Alcohol Use: No Hx Substance Use: No Preferred Language: Korean Communication Ability: Effective Visual Impairment: Partially Limited Hearing Ability: Use of Hearing Aid Professional System Administrator Required: No Beliefs That Will Affect Care: None marital status: Current Living Situation: Significant Other current occupational status: retired How many Children do You have: 3 Feels Safe at Home: Yes Childhood Exposure to Second-Hand Smoke: Yes (Both parents smoked ) Diet Comment: Diabetic diet caffeine: Yes (Coffee tea) during the past year weight has: remained stable Dental Care, Regularly: No Physical Activity Frequency: Does not Exercise Seatbelt Use: always Sunscreen Use: No Do you think of yourself as: straight/heterosexual Assistive Devices: None Review of Systems Review of Systems: detailed review of system was done and pertinent positive and negatives mentioned above in HPI. Physical Exam Constitutional: WD/WN, vitals as above Eyes: + anicteric sclerae ENMT: Ears: no hearing impairment Respiratory: normal respiratory effort, lungs clear to auscultation Cardiovascular: RRR, no murmur, no edema Gastrointestinal (Abdomen): Inspection/Auscultation: abdomen normal to inspection and normal bowel sounds Percussion/Palpation: abdomen soft; abdomen nontender Musculoskeletal: Extremities: extremities normal to inspection Skin: no rashes Neurologic: no focal motor deficits and not confused Psychiatric: Orientation: alert and oriented x 3 Affect: euthymic affect Genitourinary: Rt nephrostomy tube in place Results & Data ([facility]) Vital Signs (Past 12 Hours) Vital Signs Temp Pulse Pulse Resp BP BP BP 12/29/21 09:31 36.5 C 77 18 166/86 H 12/29/21 05:13 18 12/29/21 03:32 36.7 C 73 18 134/70 12/28/21 23:34 37.2 C 93 H 20 127/80 Pulse Ox O2 Del Method 12/29/21 09:31 96 12/29/21 05:13 Room Air 12/29/21 03:32 96 Room Air 12/28/21 23:34 97 Room Air PG Care Time/CCT Total # of Minutes Spent Total Time Spent with Patient: Total time spent is greater than 50% in coordination of care (as documented) at patient's floor/unit and/or counseling patient: Coding Level of Care Code 47538 Initial Inpt Care Lvl 3 Diagnoses Acute kidney injury N17.9 CKD (chronic kidney disease) stage 5, GFR less than 15 ml/min N18.5 Symptomatic anemia D64.9 Diarrhea R19.7 Hydronephrosis N13.30 Hypertension I10
[2021-12-29] MEDS: FILGRASTIM 300 MCG/ML VIAL SC ONE ×2 (10:54→11:15)
[2021-12-29] MEDS: COLESTIPOL HCL 1 GM TAB PO SCH ×2 (11:05→21:13)
[2021-12-29] MEDS: ACETAMINOPHEN 325 MG TAB PO PRN (13:15)
--- NOTE | 2021-12-29 15:15 | Hospitalist Progress Note ---
Date of Service December 29, 2021 Assessment & Plan (1) Acute renal failure superimposed on stage 5 chronic kidney disease, not on chronic dialysis: Plan: Creatinine was about 4 in late October/early November. Now about 5. Nephrostomy tube was capped in early November after being placed 10/23/21 Creatinine since then has slowly risen. CT abd/pelvis here shows worsening hydronephrosis on right side since the nephrostomy tube was capped. Pt resistant to having it uncapped/set to drainage for more than a few days as it becomes very uncomrtable He states he does NOT want dialysis Appreciate Urology consultation. -plan for uncapping of his nephrostomy tube and placing to drainage-hopefully there would be some improvement in renal function with such. Continues with metabolic acidosis-from combination of progressive renal disease and diarrhea. -give another 1 L of sodium bicarbonate infusion -follows with Dr Garcia in nephrology clinic-consult Nephrology -follow BMP in AM -monitor UOP, BPs, volume status -tylenol for mild pain from nephrostomy tube, add hydrocodone prn mod-severe pain (2) Antineoplastic chemotherapy induced pancytopenia: Plan: last chemo about 7-10 days prior to admission severe pancytopenia persists s/p neupogen and 1 unit of platelets on 12/28 B12 and folate normal Hgb down to 7.1 today--> transfuse 2 units PRBCs -Plts stable at 18, no bleeding, no need for plt transfusion today -give Neupogen 300 mcg x 1 today -follow CBC -continue neutropenic precautions. hopefully approaching gentry. (3) Diarrhea: Plan: present for several months. severe at times stool biofire negative. colonoscopy by [facility] late October with severe diverticular disease present and multiple polyps. at that time no colitis seen on colonoscopy despite seeing it on CT. CT a/p here - continues with findings concerning for distal colitis. radiation induced? (but typical radiation colitis findings were NOT seen on colonoscopy in October) CMV colitis? other cause? Seen by GI here and no further evaluation thought to be necessary given normal colonoscopy as above with similar CT findings Diarrhea now RESOLVED after adding colestipol 1gm BID. -continue colestipol (4) Chemotherapy-induced fatigue: Plan: patient complains of chronic, progressive weakness. MULTIFACTORIAL - bladder ca, pancytopenia from chemotherapy, decompensated hypothyroidism, diarrhea, malnutrition, deconditioning, acute/chronic renal failure -- all to blame for his weakness. will need PT, OT while here. lives alone - has had recent falls. (5) Prolonged PTT: Plan: last 3 PTTs have all been prolonged. INR is normal. he is not on anticoagulation or heparin. 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 however, no infectious source found on CT imaging, stool BioFire,UA, and Blood cxs no growth to date Remains afebrile remains on empiric cefepime + daptomycin. if cultures remain negative x 48 hours, and he is afebrile then stop IV abx on 12/30 (7) Hypomagnesemia: Plan: replaced and improved but remains slightly low give 1 gram IV mag 2nd diarrhea & poor oral intake (8) Hypertension: Plan: controlled to mildly elevated cont metoprolol XL 100mg po daily (9) 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: Plan: Undergoing chemotherapy CT chest/abd/pelvis to assess for worsening cancer show bladder ca is stable radiographically, but with increased size left subclavicular LN, has new small pericardial effusion - that could simply be from his progressive renal disease but can't rule out malignant effusion managed by Dr Martinez at [facility] (10) Diabetes mellitus, type 2: Plan: with hypoglycemia earlier and now normalized Novolog SSI ordered holding home Trulicity (11) Hypothyroidism: Plan: last 2 TSH levels all high at 11-13 increase levothyroxine to 125mcg daily repeat TSH 6 weeks (12) Hyperlipidemia: Plan: holding home Crestor while on Dapto (13) CAD (coronary atherosclerotic disease): Plan: no ischemic symptoms at this time cont beta reynaldo holding stati (14) Rapid atrial fibrillation: Plan: presented in rapid a.fib has h/o PAF per records NOT an anticoagulation candidate due to prior GI bleeding, severe thrombocytopenia, etc moved his metoprolol succinate from HS to AM dosing add CCB if needed Now in sinus rhythm, with 7 beats VT asymptomatic on 12/29. EF normal 01/2021 monitor on tele (15) Candidal diaper rash: Plan: nystatin powder TID (16) Tinea pedis: Plan: ketoconazole cream BID (17) Pericardial effusion: Plan: small, as seen on CT here likely due to progressive renal disease cannot rule out effusion from his cancer should be followed over time (18) Bilateral foot pain: Plan: x-rays without fractures not c/o pain here anymore (19) History of duodenal ulcer: Plan: 10/2021 EGD with such cont PPI twice daily Plan pt's significant other extensively updated at bedside Dispo-continued stay Admission and Anticipated Discharge Date Admission Date: December 28, 2021 Subjective Patient is upset about the idea of having to be attached to a urine bag from his nephrostomy tube for more than a few days but he is willing to do it. He initially was refusing to have his nephrostomy tube unclamped. He reports a lot of pain and irritation at the tube site especially when it is hooked to a urine bag. He understands the alternative is likely worsening renal function and again says he does not want dialysis. He denies SOB, CP. Is eating and drinking. His diarrhea has completely gone away since starting cholestyramine. Tele with Afib rates 100s, then converted to NSR rates 80s His partner Marifer is at the bedside. Review of Systems Review of Systems: All systems reviewed & are unremarkable except as noted in HPI & below Physical Exam Constitutional: WD/WN, vitals as above ENMT: external ear and nose normal, oropharynx normal Neck: trachea midline, no thyromegaly Respiratory: normal respiratory effort, lungs clear to auscultation Cardiovascular: RRR, no murmur, no edema Chest (Breasts): Chest: normal inspection of chest Gastrointestinal (Abdomen): normal bowel sounds, soft, nontender, no hepatosplenomegaly Inspection/Auscultation: + abdomen abnormal to inspection (right nephrostomy tube coming from right flank) Musculoskeletal: Extremities: extremities normal to inspection; no cyanosis and no clubbing Skin: no rashes, warm and dry Neurologic: moves all extremities and awake; no focal motor deficits Psychiatric: Orientation: alert, oriented x 3 and cooperative Affect: + irritable affect Lymphatic: no lymphedema Results & Data Results & Data ([facility]) Vital Signs (Past 12 Hours) Vital Signs Temp Pulse Pulse Resp BP BP Pulse Ox 12/29/21 14:04 80 09/06/22 14:00 36.9 C 77 18 166/86 H 98 12/29/21 13:45 36.8 C 83 18 156/88 H 94 12/29/21 13:22 36.5 C 83 18 164/83 H 98 12/29/21 13:07 36.5 C 83 18 164/83 H 98 12/29/21 10:30 36.6 C 74 18 152/83 H 99 12/29/21 10:02 36.6 C 84 18 141/73 H 97 12/29/21 12:00 36.6 C 87 20 162/84 H 99 12/29/21 09:00 18 98 12/29/21 06:15 76 12/29/21 09:31 36.5 C 77 18 166/86 H 96 12/29/21 11:01 36.6 C 73 18 163/85 H 100 12/29/21 05:13 18 12/29/21 03:32 36.7 C 73 18 134/70 96 O2 Del Method 12/29/21 14:04 12/29/21 14:00 12/29/21 13:45 12/29/21 13:22 12/29/21 13:07 12/29/21 10:30 12/29/21 10:02 12/29/21 12:00 12/29/21 09:00 Room Air 12/29/21 06:15 12/29/21 09:31 12/29/21 11:01 12/29/21 05:13 Room Air 12/29/21 03:32 Room Air Laboratory Results 12/29/21 12/29/21 12/29/21 Range/Units 16:38 11:42 07:34 WBC (4.8-10.8) K/ul RBC (4.63-6.08) M/uL Hgb (14.0-18.0) g/dl Hct (40.1-51.0) % MCV (80.0-100.0) fL MCH (25.0-34.0) pg MCHC (32.0-36.0) g/dL RDW Std Deviation (36.4-46.3) fL RDW Coeff of Josie (11.5-14.5) % Plt Count (130-400) K/uL MPV (9.4-12.4) fL Immature Gran % (Auto) Neut % (Auto) Lymph % (Auto) [place] % (Auto) Eos % (Auto) Baso % (Auto) Neut # (Auto) Lymph # (Auto) [place] # (Auto) Eos # (Auto) Baso # (Auto) Immature Gran # (Auto) Neutrophils % (Manual) Band Neutrophils % Lymphocytes % (Manual) Prolymphocyte % Reactive Lymphs % (Man) Monocytes % (Manual) Eosinophils % (Manual) Basophils % (Manual) Metamyelocytes % (Man) Myelocytes % (Man) Promyelocytes % (Man) Blast Cells % (Manual) Plasma Cell % (Manual) Other Cells % Nucleated RBC % Neutrophils # (Manual) Band Neutrophils # Total Absolute Neuts Lymphocytes # (Manual) Prolymphocyte # Reactive Lymphs # Total Abs Lymphocytes Monocytes # (Manual) Eosinophils # (Manual) Basophils # (Manual) Metamyelocytes # (Man) Myelocytes # (Manual) Promyelocytes # (Man) Blast Cells # (Man) Plasma Cell # (Manual) Other Cells # Nucleated RBCs # (Man) Hypersegmented Neuts Hyposegmented Neuts Hypogranular Neuts Large Granular Lymphs # Lrg Granular Lymphs Hairy Cells Smudge Cells Toxic Granulation Toxic Vacuolation Dohle Bodies Ludin Rods Hypogranular Platelets Clumped Platelets Giant Platelets Platelet Satelliting RBC Morphology Polychromasia Hypochromasia Poikilocytosis Basophilic Stippling Anisocytosis Microcytosis Macrocytosis Spherocytes Pappenheimer Bodies Sickle Cells Target Cells Tear Drop Cells Ovalocytes Stomatocytes Bar[place] Bodies Echinocytes Acanthocytes (Spur) Rouleaux RBC Agglutinates Schistocytes Sezary Cell PT (9.0-12.0) Seconds INR (0.9-1.1) APTT (21.0-31.0) Seconds PTT Ratio PT Mix Interpretation PTT Mix Interpretation Sodium (136-145) mmol/L Potassium (3.5-5.1) mmol/L Chloride (98-107) mmol/L Carbon Dioxide (21-32) mmol/L Anion Gap (3-11) BUN (6-23) mg/dl Creatinine (0.6-1.4) mg/dl Est Cr Clr Drug Dosing ml/min Est GFR ( Amer) ml/min Est GFR (Non-Af Amer) ml/min BUN/Creatinine Ratio (10-20) Glucose (70-99(Fasting)) mg/dl POC Glucose 124 H 131 H 107 H (70-99) mg/dl Calcium (8.5-10.1) mg/dl Magnesium (1.7-2.4) mg/dl Total Bilirubin (0.2-1.0) mg/dl AST (13-39) U/L ALT (7-52) U/L Alkaline Phosphatase (34-104) U/L Total Protein (6.0-8.3) gm/dl Albumin (3.4-5.0) gm/dl Globulin (2.5-4.0) gm/dl Albumin/Globulin Ratio (0.9-2) Vitamin B12 (180-914) pg/ml Folate (>5.38) ng/ml Blood Parasites ID Blood Type Antibody Screen Crossmatch 12/29/21 12/29/21 12/29/21 Range/Units 06:29 06:29 06:29 WBC 0.48 L* (4.8-10.8) K/ul RBC 2.36 L (4.63-6.08) M/uL Hgb 7.1 L (14.0-18.0) g/dl Hct 21.7 L (40.1-51.0) % MCV 91.9 (80.0-100.0) fL MCH 30.1 (25.0-34.0) pg MCHC 32.7 (32.0-36.0) g/dL RDW Std Deviation 55.0 H (36.4-46.3) fL RDW Coeff of Josie 16.9 H (11.5-14.5) % Plt Count 18 L* (130-400) K/uL MPV 9.1 L (9.4-12.4) fL Immature Gran % (Auto) Cancelled Neut % (Auto) Cancelled Lymph % (Auto) Cancelled [place] % (Auto) Cancelled Eos % (Auto) Cancelled Baso % (Auto) Cancelled Neut # (Auto) Cancelled Lymph # (Auto) Cancelled [place] # (Auto) Cancelled Eos # (Auto) Cancelled Baso # (Auto) Cancelled Immature Gran # (Auto) Cancelled Neutrophils % (Manual) Cancelled Band Neutrophils % Cancelled Lymphocytes % (Manual) Cancelled Prolymphocyte % Cancelled Reactive Lymphs % (Man) Cancelled Monocytes % (Manual) Cancelled Eosinophils % (Manual) Cancelled Basophils % (Manual) Cancelled Metamyelocytes % (Man) Cancelled Myelocytes % (Man) Cancelled Promyelocytes % (Man) Cancelled Blast Cells % (Manual) Cancelled Plasma Cell % (Manual) Cancelled Other Cells % Cancelled Nucleated RBC % Cancelled Neutrophils # (Manual) Cancelled Band Neutrophils # Cancelled Total Absolute Neuts Cancelled Lymphocytes # (Manual) Cancelled Prolymphocyte # Cancelled Reactive Lymphs # Cancelled Total Abs Lymphocytes Cancelled Monocytes # (Manual) Cancelled Eosinophils # (Manual) Cancelled Basophils # (Manual) Cancelled Metamyelocytes # (Man) Cancelled Myelocytes # (Manual) Cancelled Promyelocytes # (Man) Cancelled Blast Cells # (Man) Cancelled Plasma Cell # (Manual) Cancelled Other Cells # Cancelled Nucleated RBCs # (Man) Cancelled Hypersegmented Neuts Cancelled Hyposegmented Neuts Cancelled Hypogranular Neuts Cancelled Large Granular Lymphs Cancelled # Lrg Granular Lymphs Cancelled Hairy Cells Cancelled Smudge Cells Cancelled Toxic Granulation Cancelled Toxic Vacuolation Cancelled Dohle Bodies Cancelled Ludin Rods Cancelled Hypogranular Platelets Cancelled Clumped Platelets Cancelled Giant Platelets Cancelled Platelet Satelliting Cancelled RBC Morphology Cancelled Polychromasia Cancelled Hypochromasia Cancelled Poikilocytosis Cancelled Basophilic Stippling Cancelled Anisocytosis Cancelled Microcytosis Cancelled Macrocytosis Cancelled Spherocytes Cancelled Pappenheimer Bodies Cancelled Sickle Cells Cancelled Target Cells Cancelled Tear Drop Cells Cancelled Ovalocytes Cancelled Stomatocytes Cancelled [place] Bodies Cancelled Echinocytes Cancelled Acanthocytes (Spur) Cancelled Rouleaux Cancelled RBC Agglutinates Cancelled Schistocytes Cancelled Sezary Cell Cancelled PT (9.0-12.0) Seconds INR (0.9-1.1) APTT (21.0-31.0) Seconds PTT Ratio PT Mix Interpretation PTT Mix Interpretation Sodium 140 (136-145) mmol/L Potassium 3.9 (3.5-5.1) mmol/L Chloride 115 H (98-107) mmol/L Carbon Dioxide 15 L (21-32) mmol/L Anion Gap 10 (3-11) BUN 66 H (6-23) mg/dl Creatinine 4.98 H* (0.6-1.4) mg/dl Est Cr Clr Drug Dosing 10.9 ml/min Est GFR ( Amer) 12.3 ml/min Est GFR (Non-Af Amer) 10.6 ml/min BUN/Creatinine Ratio 13.3 (10-20) Glucose 81 (70-99(Fasting)) mg/dl POC Glucose (70-99) mg/dl Calcium 7.6 L (8.5-10.1) mg/dl Magnesium (1.7-2.4) mg/dl Total Bilirubin (0.2-1.0) mg/dl AST (13-39) U/L ALT (7-52) U/L Alkaline Phosphatase (34-104) U/L Total Protein (6.0-8.3) gm/dl Albumin (3.4-5.0) gm/dl Globulin (2.5-4.0) gm/dl Albumin/Globulin Ratio (0.9-2) Vitamin B12 339 (180-914) pg/ml Folate 13.73 (>5.38) ng/ml Blood Parasites ID Cancelled Blood Type Antibody Screen Crossmatch 12/29/21 12/28/21 12/28/21 Range/Units 06:29 20:09 19:17 WBC (4.8-10.8) K/ul RBC (4.63-6.08) M/uL Hgb (14.0-18.0) g/dl Hct (40.1-51.0) % MCV (80.0-100.0) fL MCH (25.0-34.0) pg MCHC (32.0-36.0) g/dL RDW Std Deviation (36.4-46.3) fL RDW Coeff of Josie (11.5-14.5) % Plt Count (130-400) K/uL MPV (9.4-12.4) fL Immature Gran % (Auto) Neut % (Auto) Lymph % (Auto) [place] % (Auto) Eos % (Auto) Baso % (Auto) Neut # (Auto) Lymph # (Auto) [place] # (Auto) Eos # (Auto) Baso # (Auto) Immature Gran # (Auto) Neutrophils % (Manual) Band Neutrophils % Lymphocytes % (Manual) Prolymphocyte % Reactive Lymphs % (Man) Monocytes % (Manual) Eosinophils % (Manual) Basophils % (Manual) Metamyelocytes % (Man) Myelocytes % (Man) Promyelocytes % (Man) Blast Cells % (Manual) Plasma Cell % (Manual) Other Cells % Nucleated RBC % Neutrophils # (Manual) Band Neutrophils # Total Absolute Neuts Lymphocytes # (Manual) Prolymphocyte # Reactive Lymphs # Total Abs Lymphocytes Monocytes # (Manual) Eosinophils # (Manual) Basophils # (Manual) Metamyelocytes # (Man) Myelocytes # (Manual) Promyelocytes # (Man) Blast Cells # (Man) Plasma Cell # (Manual) Other Cells # Nucleated RBCs # (Man) Hypersegmented Neuts Hyposegmented Neuts Hypogranular Neuts Large Granular Lymphs # Lrg Granular Lymphs Hairy Cells Smudge Cells Toxic Granulation Toxic Vacuolation Dohle Bodies Ludin Rods Hypogranular Platelets Clumped Platelets Giant Platelets Platelet Satelliting RBC Morphology Polychromasia Hypochromasia Poikilocytosis Basophilic Stippling Anisocytosis Microcytosis Macrocytosis Spherocytes Pappenheimer Bodies Sickle Cells Target Cells Tear Drop Cells Ovalocytes Stomatocytes Barrera-[place] Bodies Echinocytes Acanthocytes (Spur) Rouleaux RBC Agglutinates Schistocytes Sezary Cell PT (9.0-12.0) Seconds INR (0.9-1.1) APTT (21.0-31.0) Seconds PTT Ratio PT Mix Interpretation PTT Mix Interpretation Sodium 140 141 (136-145) mmol/L Potassium 3.8 3.9 (3.5-5.1) mmol/L Chloride 115 H 116 H (98-107) mmol/L Carbon Dioxide 15 L 14 L (21-32) mmol/L Anion Gap 10 11 (3-11) BUN 66 H 64 H (6-23) mg/dl Creatinine 5.01 H* 4.90 H* (0.6-1.4) mg/dl Est Cr Clr Drug Dosing 10.8 12.4 ml/min Est GFR ( Amer) 12.2 12.5 ml/min Est GFR (Non-Af Amer) 10.5 10.8 ml/min BUN/Creatinine Ratio 13.2 13.1 (10-20) Glucose 82 84 (70-99(Fasting)) mg/dl POC Glucose 88 (70-99) mg/dl Calcium 7.6 L 7.7 L (8.5-10.1) mg/dl Magnesium 1.7 (1.7-2.4) mg/dl Total Bilirubin 0.5 (0.2-1.0) mg/dl AST 11 L (13-39) U/L ALT 10 (7-52) U/L Alkaline Phosphatase 74 (34-104) U/L Total Protein 4.8 L (6.0-8.3) gm/dl Albumin 2.6 L (3.4-5.0) gm/dl Globulin 2.2 L (2.5-4.0) gm/dl Albumin/Globulin Ratio 1.2 (0.9-2) Vitamin B12 (180-914) pg/ml Folate (>5.38) ng/ml Blood Parasites ID Blood Type Antibody Screen Crossmatch 12/28/21 12/28/21 12/28/21 Range/Units 19:17 19:17 00:11 WBC (4.8-10.8) K/ul RBC (4.63-6.08) M/uL Hgb (14.0-18.0) g/dl Hct (40.1-51.0) % MCV (80.0-100.0) fL MCH (25.0-34.0) pg MCHC (32.0-36.0) g/dL RDW Std Deviation (36.4-46.3) fL RDW Coeff of Josie (11.5-14.5) % Plt Count 22 L* D (130-400) K/uL MPV (9.4-12.4) fL Immature Gran % (Auto) Neut % (Auto) Lymph % (Auto) [place] % (Auto) Eos % (Auto) Baso % (Auto) Neut # (Auto) Lymph # (Auto) [place] # (Auto) Eos # (Auto) Baso # (Auto) Immature Gran # (Auto) Neutrophils % (Manual) Band Neutrophils % Lymphocytes % (Manual) Prolymphocyte % Reactive Lymphs % (Man) Monocytes % (Manual) Eosinophils % (Manual) Basophils % (Manual) Metamyelocytes % (Man) Myelocytes % (Man) Promyelocytes % (Man) Blast Cells % (Manual) Plasma Cell % (Manual) Other Cells % Nucleated RBC % Neutrophils # (Manual) Band Neutrophils # Total Absolute Neuts Lymphocytes # (Manual) Prolymphocyte # Reactive Lymphs # Total Abs Lymphocytes Monocytes # (Manual) Eosinophils # (Manual) Basophils # (Manual) Metamyelocytes # (Man) Myelocytes # (Manual) Promyelocytes # (Man) Blast Cells # (Man) Plasma Cell # (Manual) Other Cells # Nucleated RBCs # (Man) Hypersegmented Neuts Hyposegmented Neuts Hypogranular Neuts Large Granular Lymphs # Lrg Granular Lymphs Hairy Cells Smudge Cells Toxic Granulation Toxic Vacuolation Dohle Bodies Ludin Rods Hypogranular Platelets Clumped Platelets Giant Platelets Platelet Satelliting RBC Morphology Polychromasia Hypochromasia Poikilocytosis Basophilic Stippling Anisocytosis Microcytosis Macrocytosis Spherocytes Pappenheimer Bodies Sickle Cells Target Cells Tear Drop Cells Ovalocytes Stomatocytes Barrera-[place] Bodies Echinocytes Acanthocytes (Spur) Rouleaux RBC Agglutinates Schistocytes Sezary Cell PT 10.9 (9.0-12.0) Seconds INR 1.0 (0.9-1.1) APTT 37.3 H (21.0-31.0) Seconds PTT Ratio 1.4 PT Mix Interpretation PT Corrected PTT Mix Interpretation Factor Inhibitor Sodium (136-145) mmol/L Potassium (3.5-5.1) mmol/L Chloride (98-107) mmol/L Carbon Dioxide (21-32) mmol/L Anion Gap (3-11) BUN (6-23) mg/dl Creatinine (0.6-1.4) mg/dl Est Cr Clr Drug Dosing ml/min Est GFR ( Amer) ml/min Est GFR (Non-Af Amer) ml/min BUN/Creatinine Ratio (10-20) Glucose (70-99(Fasting)) mg/dl POC Glucose (70-99) mg/dl Calcium (8.5-10.1) mg/dl Magnesium (1.7-2.4) mg/dl Total Bilirubin (0.2-1.0) mg/dl AST (13-39) U/L ALT (7-52) U/L Alkaline Phosphatase (34-104) U/L Total Protein (6.0-8.3) gm/dl Albumin (3.4-5.0) gm/dl Globulin (2.5-4.0) gm/dl Albumin/Globulin Ratio (0.9-2) Vitamin B12 (180-914) pg/ml Folate (>5.38) ng/ml Blood Parasites ID Blood Type O Positive Antibody Screen NEGATIVE Crossmatch See Detail PG Care Time/CCT Total # of Minutes Spent Total Time Spent with Patient: Total time spent is greater than 50% in coordination of care (as documented) at patient's floor/unit and/or counseling patient: Coding Level of Care Code 82018 Subseq Hosp Care Lvl 3 Diagnoses Acute renal failure superimposed on stage 5 chronic kidney disease, not on chronic dialysis N17.9; N18.5 Antineoplastic chemotherapy induced pancytopenia D61.810; T45.1X5A Diarrhea R19.7 Chemotherapy-induced fatigue R53.83; T45.1X5A Prolonged PTT R79.1 Sepsis A41.9 Hypomagnesemia E83.42 Hypertension I10 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 C67.9; C78.00 Diabetes mellitus, type 2 E11.9 Hypothyroidism E03.9 Hypothyroidism type: acquired Hyperlipidemia E78.2 Hyperlipidemia type: mixed hyperlipidemia CAD (coronary atherosclerotic disease) I25.10 Rapid atrial fibrillation I48.91 Candidal diaper rash B37.2; L22 Tinea pedis B35.3 Pericardial effusion I31.3 Bilateral foot pain M79.671; M79.672 History of duodenal ulcer Z87.19 (1) Hyperlipidemia Hyperlipidemia type: mixed hyperlipidemia Qualified Code(s): E78.2 - Mixed hyperlipidemia (2) Hypothyroidism Hypothyroidism type: acquired Qualified Code(s): E03.9 - Hypothyroidism, unspecified
[2021-12-29] MEDS ORDERED: HYDROCODONE/ACETAMOPHEN 5/325MG TAB PO PRN (18:08)
[2021-12-29] MEDS: CALCITRIOL 0.25 MCG CAPSULE PO SCH (21:14)
[2021-12-29] MEDS: ROSUVASTATIN CALCIUM 5 MG TAB PO SCH (21:14)
[2021-12-30] MEDS: FIRST - Mouthwash BLM 119 ML PO SCH ×3 (00:22→10:48)
[2021-12-30] MEDS: LEVOTHYROXINE SODIUM 125 MCG TABLET PO SCH (06:21)
[2021-12-30] MEDS: CEFEPIME 1,000 MG in SYRINGE 0 ML IV SCH (06:21)
[2021-12-30 06:45] LABS: Base Excess VBG -4.7 mEq/L; HCO3 VBG 20 mmol/L; Oxygen Saturation VBG 71.7 %; PCO2 VBG 33 mmHg (38-50); PO2 VBG 39 mmHg; pH VBG 7.38 (7.36-7.41)
[2021-12-30 06:57] LABS: Hematocrit (blood only) 28.2 % (40.1-51.0); Hemoglobin 9.6 g/dl (14.0-18.0); Mean Corpuscular Hemoglobin 29.4 pg (25.0-34.0); Mean Corpuscular Volume 86.5 fL (80.0-100.0); Mean Platelet Volume 8.9 fL (9.4-12.4); Platelet Count 10 K/uL (130-400); RDW Standard Deviation 50.3 fL (36.4-46.3); Red Blood Count 3.26 M/uL (4.63-6.08); White Blood Count 0.57 K/ul (4.8-10.8)
[2021-12-30 07:17] LABS: Echinocytes 1+
[2021-12-30 07:22] LABS: Albumin Level 2.5 gm/dl (3.4-5.0); BUN Creatinine Ratio 13.6 (10-20); Bilirubin,Total 0.7 mg/dl (0.2-1.0); Calcium 7.3 mg/dl (8.5-10.1); Creatinine Clr Calc Pharmacy 11.9 ml/min; Est GFR (African American) 13.6 ml/min; Est GFR (Non-African American) 11.8 ml/min; Globulin 2.4 gm/dl (2.5-4.0); Magnesium 1.9 mg/dl (1.7-2.4); Potassium 3.3 mmol/L (3.5-5.1); Total Protein 4.9 gm/dl (6.0-8.3)
[2021-12-30 07:25] LABS: Immature Granulocytes # (auto) 0.04 K/uL (0.00-0.02); Lymphocytes # (auto) 0.11 K/uL (1.2-3.4); Lymphocytes % (auto) 19.3 %; Monocytes # (auto) 0.01 K/uL (0.24-0.82); Monocytes % (auto) 1.8 %; Neutrophils # (auto) 0.41 K/uL (1.4-6.5); Neutrophils % (auto) 71.9 %
[2021-12-30] MEDS: ADVANCED PROBIOTIC 1250 MG CAPSULE PO SCH (08:36)
[2021-12-30] MEDS: TAMSULOSIN HCL 0.4 MG CAP PO SCH ×2 (08:36→21:31)
[2021-12-30] MEDS: METOPROLOL SUCC 50MG EXT REL TAB PO SCH (08:36)
[2021-12-30] MEDS: CINACALCET HCL 30 MG TAB PO SCH (08:36)
[2021-12-30] MEDS: OXYBUTYNIN CHLORIDE XL 5 MG TABCR PO SCH (08:36)
[2021-12-30] MEDS: allopurinoL 300 MG TAB PO SCH (08:36)
[2021-12-30] MEDS: CETIRIZINE HCL 10 MG TABLET PO SCH (08:36)
[2021-12-30] MEDS: FERROUS SULFATE 325 MG TAB PO SCH (08:37)
[2021-12-30] MEDS: PANTOprazole 40 MG TAB PO SCH ×2 (08:37→21:32)
[2021-12-30] MEDS: KETOCONAZOLE 2% CR 15 GM TUBE EXT SCH ×2 (08:38→21:33)
[2021-12-30] MEDS: NYSTATIN POWDER 15GM BTL EXT SCH ×3 (08:38→21:32)
--- NOTE | 2021-12-30 08:38 | Urology Progress Note ---
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 - Pt afebrile. - Labs reviewed - Creatinine slightly improved to 4.57 (4.98 yesterday). Continue to trend. - UC&S 12/24 negative; Blood cultures 12/28 prelim no growth x 48 hours. IV abx stopped 12/30. - Nephrostomy tube was uncapped and placed to drainage yesterday. Currently draining pink-tinged urine, continue to monitor. - Continue supportive care. - Urology will follow. Admission and Anticipated Discharge Date Admission Date: December 28, 2021 Supervising Physician Co-Signing Physician Notes I have discussed Mr. Crews's case with RHODA Noe and agree with the above documentation. Would recommend continuing nephrostomy tube to drainage for now as his pain is improving. Creatinine is down slightly, but minimal improvement in GFR -he remains close to baseline. Subjective Patient examined at bedside this AM. Awake, resting in bed on arrival. Reports he is still feeling "terrible" but does endorse some improvement in his right flank pain. Right nephrostomy tube is intact and draining pink-tinged urine. Output overnight-550ml. No fevers. Tolerating diet. Diarrhea resolved. States he is voiding without issue and feels he is emptying his bladder well. Denies hematuria and dysuria. Review of Systems Constitutional: as per Subjective / HPI Gastrointestinal: as per Subjective / HPI Genitourinary: + as per Subjective / HPI Physical Exam Constitutional: + ill appearing; no acute distress Respiratory: no respiratory distress and no labored breathing Gastrointestinal (Abdomen): Right nephrostomy tube intact, draining pink- tinged urine. Neurologic: awake Psychiatric: Orientation: alert and oriented x 3 Affect: + irritable affect Results & Data ([facility]) Vital Signs (Past 12 Hours) Vital Signs Temp Pulse Pulse Resp BP Pulse Ox O2 Del Method 12/30/21 07:44 36.9 C 87 20 164/77 H 97 Room Air 12/29/21 22:14 81 12/29/21 22:54 37.3 C 74 18 161/67 H 100 Room Air PG Care Time/CCT Total # of Minutes Spent Total Time Spent with Patient: Total time spent is greater than 50% in coordination of care (as documented) at patient's floor/unit and/or counseling patient: Coding Level of Care Code 23285 Subseq Hosp Care Lvl 2 Diagnoses Acute renal failure superimposed on stage 5 chronic kidney disease, not on chr onic dialysis N17.9; N18.5 Chemotherapy-induced fatigue R53.83; T45.1X5A 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 C67.9; C78.00
[2021-12-30] MEDS: POTASSIUM CHLORIDE CRTAB 20 MEQ TABCR PO STA ×2 (08:40→09:27)
[2021-12-30] MEDS: INSULIN ASPART PER UNIT SC SCH ×4 (08:40→21:33)
[2021-12-30] MEDS: ACETAMINOPHEN 325 MG TAB PO PRN (08:40)
--- NOTE | 2021-12-30 08:41 | Gastroenterology Progress Note ---
Date of Service December 30, 2021 Assessment & Plan (1) Diarrhea: Plan: Diarrhea has resolved on treatment with colestipol. Would continue that. No further recommendations. Will sign off. Please call if I can be of further assistance Admission and Anticipated Discharge Date Admission Date: December 28, 2021 Subjective Following for diarrhea. Diarrhea is gone. Taking colestipol and it has resolved for the time being Physical Exam Constitutional: WD/WN, vitals as above no acute distress Results & Data ([facility]) Vital Signs (Past 12 Hours) Vital Signs Temp Pulse Pulse Resp BP Pulse Ox O2 Del Method 12/30/21 07:44 36.9 C 87 20 164/77 H 97 Room Air 12/29/21 22:14 81 12/29/21 22:54 37.3 C 74 18 161/67 H 100 Room Air
[2021-12-30] MEDS ORDERED: SODIUM CHLORIDE 0.9% 250 ML IV PRN (09:08)
--- NOTE | 2021-12-30 10:08 | Nephrology Progress Note ---
Date of Service December 30, 2021 Assessment & Plan (1) Acute kidney injury: (2) CKD (chronic kidney disease) stage 5, GFR less than 15 ml/min: (3) Symptomatic anemia: (4) Diarrhea: (5) Hydronephrosis: (6) Hypertension: Plan 76 the year old gentlemen with the stage IV/5 CKD in the setting of right-sided hydronephrosis with metastatic bladder cancer, hypertension, diabetes, lately creatinine has been staying around 4.0. Admitted with generalized weakness and diarrhea, diarrhea seems to have stopped and most likely related to prior chemotherapy. On admission noted to have ALESSANDRA with creatinine 5.0 associated with metabolic acidosis but normal potassium. Noted to have critical pancytopenia again most likely chemotherapy induced. CT showed a worsening right-sided hydronephrosis while the nephrostomy tube has been clamped. Nephrostomy unclamped yesterday. Slight improvement in cr today. BP high, ? related to pain --if BP remains high off of IV fluid, consider Amlodipine 5 mg/d --stop Sensipar --continue to monitor renal function and correct electrolyte abnormality as needed. Had long discussion with patient and patient made the decision to not to consider dialysis at this time even if it is needed. -- dose medications for eGFR less than 15, encourage hydration, avoid all nephrotoxic medications. Admission and Anticipated Discharge Date Admission Date: December 28, 2021 Subjective Patrick was seen and evaluated this morning. He feels terrible but no specific symptoms. Nephrostomy tube attached to drainage bag. Cr slightly improved. BP running high. Review of Systems Review of Systems: detailed review of system was done and pertinent positive and negatives mentioned above in HPI. Physical Exam Constitutional: WD/WN, vitals as above no acute distress Neck: normal visual inspection Respiratory: Auscultation: + diminished lung sounds Cardiovascular: Rate/Rhythm: regular rate and regular rhythm Heart Sounds: normal S1 and normal S2 Extremities: no edema Skin: no rashes Neurologic: no focal motor deficits Psychiatric: Orientation: alert and oriented x 3 Results & Data ([facility]) Vital Signs (Past 12 Hours) Vital Signs Temp Pulse Pulse Resp BP Pulse Ox O2 Del Method 12/30/21 07:44 36.9 C 87 20 164/77 H 97 Room Air 12/29/21 22:14 81 12/29/21 22:54 37.3 C 74 18 161/67 H 100 Room Air PG Care Time/CCT Total # of Minutes Spent Total Time Spent with Patient: Total time spent is greater than 50% in coordination of care (as documented) at patient's floor/unit and/or counseling patient: Coding Level of Care Code 92150 Subseq Hosp Care Lvl 3 Diagnoses Acute kidney injury N17.9 CKD (chronic kidney disease) stage 5, GFR less than 15 ml/min N18.5 Symptomatic anemia D64.9 Diarrhea R19.7 Hydronephrosis N13.30 Hypertension I10
[2021-12-30] MEDS: COLESTIPOL HCL 1 GM TAB PO SCH ×2 (10:48→21:30)
[2021-12-30] MEDS: POTASSIUM CHLORIDE / WTR 10 MEQ/100 ML PLCT IV SCH ×2 (10:51→10:52)
[2021-12-30] MEDS ORDERED: LIDOCAINE VISCOUS 2% 15 ML UDC MT PRN (16:12)
--- NOTE | 2021-12-30 16:21 | Hospitalist Progress Note ---
Date of Service December 30, 2021 Assessment & Plan (1) Acute renal failure superimposed on stage 5 chronic kidney disease, not on chronic dialysis: Plan: Creatinine was about 4 in late October/early November. Was 5.1 on admission Nephrostomy tube was capped in early November after being placed 10/23/21 Creatinine since then has slowly risen. Also with copious diarrhea contributing to dehydration CT abd/pelvis here shows worsening hydronephrosis on right side since the ne phrostomy tube was capped. Pt resistant to having it uncapped/set to drainage for more than a few days as it becomes very uncomfortable He states he does NOT want dialysis, ever Appreciate Urology consultation. -have now uncapped his nephrostomy tube and placing to drainage [employer] Care [employer] and met acidosis both improved today with uncapping tube and with 1 L HCO3 gtt -poor po intake due to mouth sore and lethargy from taking hydrocodone -dc hydrocodone -add viscous lidocaine for mouth sore and encourage po intake (dc Magic mouthwash as he hates the flavor) -start NS at 70 mL/hr until taking adequate po -give another 1 L of sodium bicarbonate infusion -follows with Dr Garcia in nephrology clinic-consult Nephrology appreciated--> recommends dc Sensipar, treat HTN with amlodipine if needed -follow BMP in AM -monitor UOP, BPs, volume status -tylenol for mild pain from nephrostomy tube (2) Antineoplastic chemotherapy induced pancytopenia: Plan: last chemo about 7-10 days prior to admission severe pancytopenia persists but improving with transfusions, time, and Neupogen shots s/p neupogen and 1 unit of platelets on 12/28 s/p 2 units PRBCs 12/29 B12 and folate normal Hgb up to 9.6 today -Pltsdown to 10 and pink tinged urine-->give plt transfusion today -follow CBC -continue neutropenic precautions. hopefully approaching gentry. (3) Diarrhea: Plan: present for several months. severe at times stool biofire negative. colonoscopy by [facility] late October with severe diverticular disease present and multiple polyps. at that time no colitis seen on colonoscopy despite seeing it on CT. CT a/p here - continues with findings concerning for distal colitis. radiation induced? (but typical radiation colitis findings were NOT seen on colonoscopy in October) CMV colitis? other cause? Seen by GI here and no further evaluation thought to be necessary given normal colonoscopy as above with similar CT findings Diarrhea now RESOLVED after adding colestipol 1gm BID. Had one loose stool 12/30 -continue colestipol (4) Chemotherapy-induced fatigue: Plan: patient complains of chronic, progressive weakness. MULTIFACTORIAL - bladder ca, pancytopenia from chemotherapy, decompensated hypothyroidism, diarrhea, malnutrition, deconditioning, acute/chronic renal failure -- all to blame for his weakness. will need PT, OT while here. lives alone - has had recent falls. (5) Prolonged PTT: Plan: last 3 PTTs have all been prolonged. INR is normal. he is not on anticoagulation or heparin. 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 however, no infectious source found on CT imaging, stool BioFire,UA, and Blood cxs no growth to date Remains afebrile and BCxs now negative > 48 hrs dc empiric cefepime + daptomycin. (7) Hypomagnesemia: Plan: replaced and improved 2nd diarrhea & poor oral intake (8) Hypertension: Plan: controlled to mildly elevated cont metoprolol XL 100mg po daily add on amlodipine as per Nephro if needed (9) 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: Plan: Undergoing chemotherapy CT chest/abd/pelvis to assess for worsening cancer show bladder ca is stable radiographically, but with increased size left subclavicular LN, has new small pericardial effusion - that could simply be from his progressive renal disease but can't rule out malignant effusion managed by Dr Martinez at [facility] (10) Diabetes mellitus, type 2: Plan: with hypoglycemia earlier and now normalized Novolog SSI ordered holding home Trulicity (11) Hypothyroidism: Plan: last 2 TSH levels all high at 11-13 increase levothyroxine to 125mcg daily repeat TSH 6 weeks (12) Hyperlipidemia: Plan: holding home Crestor while on Dapto-now will restart (13) CAD (coronary atherosclerotic disease): Plan: no ischemic symptoms at this time cont beta reynaldo, statin to be restarted today (14) Rapid atrial fibrillation: Plan: presented in rapid a.fib has h/o PAF per records NOT an anticoagulation candidate due to prior GI bleeding, severe thrombocytopenia, etc moved his metoprolol succinate from HS to AM dosing add CCB if needed Now in sinus rhythm, with 7 beats VT asymptomatic on 12/29. EF normal 01/2021 monitor on tele (15) Candidal diaper rash: Plan: nystatin powder TID (16) Tinea pedis: Plan: ketoconazole cream BID (17) Pericardial effusion: Plan: small, as seen on CT here likely due to progressive renal disease cannot rule out effusion from his cancer should be followed over time (18) Bilateral foot pain: Plan: x-rays without fractures not c/o pain here anymore (19) History of duodenal ulcer: Plan: 10/2021 EGD with such cont PPI twice daily (20) Acute encephalopathy: Plan: on 12/30 with some confusion intermittent but nonfocal neuro exam, no headache, seemed better after sleep likely from hydrocodone received last night and lack of sleep -check glucose now -no need for CT head -dc hydrocodone -support sleep wake cycles Plan pt's significant other and daughter extensively updated at bedside Dispo-continued stay Admission and Anticipated Discharge Date Admission Date: December 28, 2021 Subjective Pt was more confused today but then improved when I saw him in afternoon. Partner and daughter at bedside say he hasn't been sleeping much, c/o a sore in his mouth and not eating or drinking much today. He denies pain in his nephrostomy tube site. He got one dose of hydrocodone overnight and partner says he has been talking about strange things today and not acting like himself. Pt denies headache, no changes in vision. Did have some pink tinged urine earlier. Had one bout of diarrhea today. Tele with NSR, PACs, 70s. Review of Systems Review of Systems: All systems reviewed & are unremarkable except as noted in HPI & below Physical Exam Constitutional: WD/WN, vitals as above Eyes: PERRL, conjunctivae normal, anicteric sclerae ENMT: external ear and nose normal, oropharynx normal (except small ulcer right inner lip) Neck: trachea midline, no thyromegaly Respiratory: normal respiratory effort, lungs clear to auscultation Cardiovascular: RRR, no murmur, no edema Chest (Breasts): Chest: normal inspection of chest Gastrointestinal (Abdomen): normal bowel sounds, soft, nontender, no hepatosplenomegaly Inspection/Auscultation: + abdomen abnormal to inspection (right nephrostomy tube coming from right flank) Musculoskeletal: Extremities: extremities normal to inspection; no cyanosis and no clubbing Skin: no rashes, warm and dry Neurologic: moves all extremities and awake; no focal motor deficits Psychiatric: Orientation: alert, oriented x 3 and cooperative Lymphatic: no lymphedema Results & Data Results & Data ([facility]) Vital Signs (Past 12 Hours) Vital Signs Temp Pulse Pulse Resp BP BP BP 12/30/21 16:06 36.4 C L 70 18 124/68 12/30/21 15:00 74 12/30/21 08:00 75 12/30/21 13:21 36.7 C 75 20 120/68 12/30/21 12:26 36.6 C 68 20 131/72 12/30/21 11:55 36.8 C 70 18 120/68 12/30/21 11:40 36.7 C 68 18 118/64 12/30/21 11:18 36.8 C 88 16 124/83 12/30/21 11:18 36.6 C 74 18 127/72 12/30/21 07:44 36.9 C 87 20 164/77 H Pulse Ox O2 Del Method 12/30/21 16:06 91 Room Air 12/30/21 15:00 12/30/21 08:00 12/30/21 13:21 98 12/30/21 12:26 97 12/30/21 11:55 98 12/30/21 11:40 97 12/30/21 11:18 12/30/21 11:18 93 Room Air 12/30/21 07:44 97 Room Air Laboratory Results 12/30/21 12/30/21 12/30/21 Range/Units 11:30 07:31 06:36 WBC 0.57 L* (4.8-10.8) K/ul RBC 3.26 L (4.63-6.08) M/uL Hgb 9.6 L (14.0-18.0) g/dl Hct 28.2 L (40.1-51.0) % MCV 86.5 D (80.0-100.0) fL MCH 29.4 (25.0-34.0) pg MCHC 34.0 (32.0-36.0) g/dL RDW Std Deviation 50.3 H (36.4-46.3) fL RDW Coeff of Josie 16.0 H (11.5-14.5) % Plt Count 10 L* (130-400) K/uL MPV 8.9 L (9.4-12.4) fL Immature Gran % (Auto) 7.0 % Neut % (Auto) 71.9 % Lymph % (Auto) 19.3 % [place] % (Auto) 1.8 % Eos % (Auto) 0.0 % Baso % (Auto) 0.0 % Neut # (Auto) 0.41 L* (1.4-6.5) K/uL Lymph # (Auto) 0.11 L (1.2-3.4) K/uL [place] # (Auto) 0.01 L (0.24-0.82) K/uL Eos # (Auto) 0.00 (0-0.50) K/uL Baso # (Auto) 0.00 (0-0.2) K/uL Immature Gran # (Auto) 0.04 H (0.00-0.02) K/uL Echinocytes 1+ VBG pH (7.36-7.41) VBG pCO2 (38-50) mmHg VBG pO2 mmHg VBG HCO3 mmol/L VBG O2 Saturation % VBG Base Excess mEq/L Sodium (136-145) mmol/L Potassium (3.5-5.1) mmol/L Chloride (98-107) mmol/L Carbon Dioxide (21-32) mmol/L Anion Gap (3-11) BUN (6-23) mg/dl Creatinine (0.6-1.4) mg/dl Est Cr Clr Drug Dosing ml/min Est GFR ( Amer) ml/min Est GFR (Non-Af Amer) ml/min BUN/Creatinine Ratio (10-20) Glucose (70-99(Fasting)) mg/dl POC Glucose 105 H 188 H (70-99) mg/dl Calcium (8.5-10.1) mg/dl Magnesium (1.7-2.4) mg/dl Total Bilirubin (0.2-1.0) mg/dl AST (13-39) U/L ALT (7-52) U/L Alkaline Phosphatase (34-104) U/L Total Protein (6.0-8.3) gm/dl Albumin (3.4-5.0) gm/dl Globulin (2.5-4.0) gm/dl Albumin/Globulin Ratio (0.9-2) Blood Type Antibody Screen Crossmatch 12/30/21 12/30/21 12/29/21 Range/Units 06:36 06:36 20:11 WBC (4.8-10.8) K/ul RBC (4.63-6.08) M/uL Hgb (14.0-18.0) g/dl Hct (40.1-51.0) % MCV (80.0-100.0) fL MCH (25.0-34.0) pg MCHC (32.0-36.0) g/dL RDW Std Deviation (36.4-46.3) fL RDW Coeff of Josie (11.5-14.5) % Plt Count (130-400) K/uL MPV (9.4-12.4) fL Immature Gran % (Auto) % Neut % (Auto) % Lymph % (Auto) % [place] % (Auto) % Eos % (Auto) % Baso % (Auto) % Neut # (Auto) (1.4-6.5) K/uL Lymph # (Auto) (1.2-3.4) K/uL [place] # (Auto) (0.24-0.82) K/uL Eos # (Auto) (0-0.50) K/uL Baso # (Auto) (0-0.2) K/uL Immature Gran # (Auto) (0.00-0.02) K/uL Echinocytes VBG pH 7.38 (7.36-7.41) VBG pCO2 33 L (38-50) mmHg VBG pO2 39 mmHg VBG HCO3 20 mmol/L VBG O2 Saturation 71.7 % VBG Base Excess -4.7 mEq/L Sodium 141 (136-145) mmol/L Potassium 3.3 L (3.5-5.1) mmol/L Chloride 111 H (98-107) mmol/L Carbon Dioxide 20 L (21-32) mmol/L Anion Gap 10 (3-11) BUN 62 H (6-23) mg/dl Creatinine 4.57 H* D (0.6-1.4) mg/dl Est Cr Clr Drug Dosing 11.9 ml/min Est GFR ( Amer) 13.6 ml/min Est GFR (Non-Af Amer) 11.8 ml/min BUN/Creatinine Ratio 13.6 (10-20) Glucose 188 H (70-99(Fasting)) mg/dl POC Glucose 167 H (70-99) mg/dl Calcium 7.3 L (8.5-10.1) mg/dl Magnesium 1.9 (1.7-2.4) mg/dl Total Bilirubin 0.7 (0.2-1.0) mg/dl AST 9 L (13-39) U/L ALT 8 (7-52) U/L Alkaline Phosphatase 75 (34-104) U/L Total Protein 4.9 L (6.0-8.3) gm/dl Albumin 2.5 L (3.4-5.0) gm/dl Globulin 2.4 L (2.5-4.0) gm/dl Albumin/Globulin Ratio 1.0 (0.9-2) Blood Type Antibody Screen Crossmatch 12/29/21 12/28/21 Range/Units 16:38 00:11 WBC (4.8-10.8) K/ul RBC (4.63-6.08) M/uL Hgb (14.0-18.0) g/dl Hct (40.1-51.0) % MCV (80.0-100.0) fL MCH (25.0-34.0) pg MCHC (32.0-36.0) g/dL RDW Std Deviation (36.4-46.3) fL RDW Coeff of Josie (11.5-14.5) % Plt Count (130-400) K/uL MPV (9.4-12.4) fL Immature Gran % (Auto) % Neut % (Auto) % Lymph % (Auto) % [place] % (Auto) % Eos % (Auto) % Baso % (Auto) % Neut # (Auto) (1.4-6.5) K/uL Lymph # (Auto) (1.2-3.4) K/uL [place] # (Auto) (0.24-0.82) K/uL Eos # (Auto) (0-0.50) K/uL Baso # (Auto) (0-0.2) K/uL Immature Gran # (Auto) (0.00-0.02) K/uL Echinocytes VBG pH (7.36-7.41) VBG pCO2 (38-50) mmHg VBG pO2 mmHg VBG HCO3 mmol/L VBG O2 Saturation % VBG Base Excess mEq/L Sodium (136-145) mmol/L Potassium (3.5-5.1) mmol/L Chloride (98-107) mmol/L Carbon Dioxide (21-32) mmol/L Anion Gap (3-11) BUN (6-23) mg/dl Creatinine (0.6-1.4) mg/dl Est Cr Clr Drug Dosing ml/min Est GFR ( Amer) ml/min Est GFR (Non-Af Amer) ml/min BUN/Creatinine Ratio (10-20) Glucose (70-99(Fasting)) mg/dl POC Glucose 124 H (70-99) mg/dl Calcium (8.5-10.1) mg/dl Magnesium (1.7-2.4) mg/dl Total Bilirubin (0.2-1.0) mg/dl AST (13-39) U/L ALT (7-52) U/L Alkaline Phosphatase (34-104) U/L Total Protein (6.0-8.3) gm/dl Albumin (3.4-5.0) gm/dl Globulin (2.5-4.0) gm/dl Albumin/Globulin Ratio (0.9-2) Blood Type O Positive Antibody Screen NEGATIVE Crossmatch See Detail PG Care Time/CCT Total # of Minutes Spent Total Time Spent with Patient: Total time spent is greater than 50% in coordination of care (as documented) at patient's floor/unit and/or counseling patient: Coding Level of Care Code 55780 Subseq Hosp Care Lvl 3 Diagnoses Acute renal failure superimposed on stage 5 chronic kidney disease, not on chronic dialysis N17.9; N18.5 Antineoplastic chemotherapy induced pancytopenia D61.810; T45.1X5A Diarrhea R19.7 Chemotherapy-induced fatigue R53.83; T45.1X5A Prolonged PTT R79.1 Sepsis A41.9 Hypomagnesemia E83.42 Hypertension I10 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 C67.9; C78.00 Diabetes mellitus, type 2 E11.9 Hypothyroidism E03.9 Hypothyroidism type: acquired Hyperlipidemia E78.2 Hyperlipidemia type: mixed hyperlipidemia CAD (coronary atherosclerotic disease) I25.10 Rapid atrial fibrillation I48.91 Candidal diaper rash B37.2; L22 Tinea pedis B35.3 Pericardial effusion I31.3 Bilateral foot pain M79.671; M79.672 History of duodenal ulcer Z87.19 Acute encephalopathy G93.40 (1) Hypothyroidism Hypothyroidism type: acquired Qualified Code(s): E03.9 - Hypothyroidism, unspecified (2) Hyperlipidemia Hyperlipidemia type: mixed hyperlipidemia Qualified Code(s): E78.2 - Mixed hyperlipidemia
[2021-12-30] MEDS: SODIUM CHLORIDE 0.9% 1000ML 1,000 ML IV SCH (17:14)
--- NOTE | 2021-12-30 20:28 | Communication Note ---
Date of Service: December 30, 2021 Contacted by RN at 1903 about increased confusion and passing blood clots per rectum. Advised RN to call medical science liaison overnight doctor as I was off duty
[2021-12-30] MEDS: CALCITRIOL 0.25 MCG CAPSULE PO SCH (21:30)
[2021-12-30] MEDS: ROSUVASTATIN CALCIUM 5 MG TAB PO SCH (21:31)
[2021-12-31] MEDS: LEVOTHYROXINE SODIUM 125 MCG TABLET PO SCH (06:07)
[2021-12-31] MEDS: KETOCONAZOLE 2% CR 15 GM TUBE EXT SCH ×2 (07:39→21:31)
[2021-12-31] MEDS: NYSTATIN POWDER 15GM BTL EXT SCH ×3 (07:39→21:11)
[2021-12-31] MEDS: CETIRIZINE HCL 10 MG TABLET PO SCH (07:40)
[2021-12-31] MEDS: TAMSULOSIN HCL 0.4 MG CAP PO SCH ×2 (07:40→21:27)
[2021-12-31] MEDS: COLESTIPOL HCL 1 GM TAB PO SCH ×2 (07:40→21:28)
[2021-12-31] MEDS: METOPROLOL SUCC 50MG EXT REL TAB PO SCH (07:40)
[2021-12-31] MEDS: allopurinoL 300 MG TAB PO SCH (07:40)
[2021-12-31] MEDS: ADVANCED PROBIOTIC 1250 MG CAPSULE PO SCH (07:40)
[2021-12-31] MEDS: OXYBUTYNIN CHLORIDE XL 5 MG TABCR PO SCH (07:40)
[2021-12-31] MEDS: PANTOprazole 40 MG TAB PO SCH ×2 (07:41→21:24)
[2021-12-31] MEDS: CARBOHYDRATES FOR HYPOGLYCEMIA PO PRN (07:49)
[2021-12-31] MEDS: INSULIN ASPART PER UNIT SC SCH ×4 (07:50→21:21)
--- NOTE | 2021-12-31 07:56 | Urology Progress Note ---
Date of Service December 31, 2021 Assessment & Plan (1) Acute renal failure superimposed on stage 5 chronic kidney disease, not on chronic dialysis: (2) Chemotherapy-induced fatigue: (3) 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: Plan 76yo M with a hx of bladder ca w/lung mets and right neph tube admittedwith weakness and diarrhea. - Right flank pain improving. - Remains afebrile. - Labs reviewed - Creatinine slightly improved to 4.39 today, Hemoglobin 10.2. - UC&S 12/24 negative; Blood cultures 12/28 prelim no growth x 48 hours. IV abx stopped 12/30. - Nephrostomy tube intact, draining pink-tinged urine. Continue to monitor. - Will need to ensure he has a nephroureteral drain exchange scheduled with IR following discharge. - Plan for outpatient follow-up with urology as scheduled. - Palliative care consulted for goals of care discussion. - Urology will follow peripherally. Admission and Anticipated Discharge Date Admission Date: December 28, 2021 Supervising Physician Co-Signing Physician Notes I have discussed Mr. Crews's case with RHODA Noe and agree with the above documentation. Flank pain is improved with nephrostomy tube open to drainage. Creatinine is close to baseline. Agree with family meeting with palliative care. Prior to any further intervention we will see what they determine for overall goals. Subjective Pt examined at bedside this AM. Awake, resting in bed on arrival. No acute distress. Right nephrostomy tube intact, draining pink-tinged urine. Reports flank pain has improved. No fevers overnight. Review of Systems Constitutional: as per Subjective / HPI Genitourinary: + as per Subjective / HPI Physical Exam Constitutional: + ill appearing; no acute distress Respiratory: no respiratory distress and no labored breathing Gastrointestinal (Abdomen): Right nephrostomy tube intact, draining pink- tinged urine Neurologic: awake Results & Data ([facility]) Vital Signs (Past 12 Hours) Vital Signs Temp Pulse Pulse Resp BP Pulse Ox O2 Del Method 12/31/21 06:27 36.6 C 75 18 184/101 H 95 Room Air 12/31/21 06:44 80 157/85 H 12/30/21 23:59 70 12/30/21 20:10 36.6 C 75 18 167/83 H 97 Room Air PG Care Time/CCT Total # of Minutes Spent Total Time Spent with Patient: Total time spent is greater than 50% in coordination of care (as documented) at patient's floor/unit and/or counseling patient: Coding Level of Care Code 66597 Subseq Hosp Care Lvl 2 Diagnoses Acute renal failure superimposed on stage 5 chronic kidney disease, not on chronic dialysis N17.9; N18.5 Chemotherapy-induced fatigue R53.83; T45.1X5A 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 C67.9; C78.00
[2021-12-31 08:35] LABS: Hematocrit (blood only) 30.9 % (40.1-51.0); Hemoglobin 10.2 g/dl (14.0-18.0); Mean Corpuscular Hemoglobin 29.4 pg (25.0-34.0); Platelet Count 8 K/uL (130-400); RDW Coefficient of Variation 16.4 % (11.5-14.5); RDW Standard Deviation 53.3 fL (36.4-46.3); Red Blood Count 3.47 M/uL (4.63-6.08); White Blood Count 0.67 K/ul (4.8-10.8)
[2021-12-31 08:46] LABS: Albumin Globulin Ratio 1.1 (0.9-2); Albumin Level 2.8 gm/dl (3.4-5.0); BUN Creatinine Ratio 13.2 (10-20); Bilirubin,Total 0.6 mg/dl (0.2-1.0); Calcium 7.7 mg/dl (8.5-10.1); Creatinine Clr Calc Pharmacy 13.4 ml/min; Est GFR (African American) 14.3 ml/min; Est GFR (Non-African American) 12.3 ml/min; Globulin 2.5 gm/dl (2.5-4.0); Magnesium 1.8 mg/dl (1.7-2.4); Potassium 3.5 mmol/L (3.5-5.1); Total Protein 5.3 gm/dl (6.0-8.3)
--- NOTE | 2021-12-31 09:45 | Nephrology Progress Note ---
Date of Service December 31, 2021 Assessment & Plan (1) Acute kidney injury: (2) CKD (chronic kidney disease) stage 5, GFR less than 15 ml/min: (3) Symptomatic anemia: (4) Diarrhea: (5) Hydronephrosis: (6) Hypertension: Plan 76 the year old gentlemen with the stage IV/5 CKD in the setting of right-sided hydronephrosis with metastatic bladder cancer, hypertension, diabetes, lately creatinine has been staying around 4.0. Admitted with generalized weakness and diarrhea, diarrhea seems to have stopped and most likely related to prior chemotherapy. On admission noted to have ALESSANDRA with creatinine 5.0 associated with metabolic acidosis but normal potassium. Noted to have critical pancytopenia again most likely chemotherapy induced. CT showed a worsening right-sided hydronephrosis while the nephrostomy tube has been clamped. Nephrostomy unclamped yesterday. Slight improvement in cr today. BP high, ? related to pain --overall doing poorly although cr slightly improved, prognosis remains poor with advanced renal impairment, myelosuppression with chemo for metastatic ca. Recommend palliative care consultation for goals of care discussion. Consider discussion with oncology. --stop Sensipar --continue to monitor renal function and correct electrolyte abnormality as needed. However, he has advanced and decided to not to consider dialysis in future which seems reasonable. -- dose medications for eGFR less than 15, encourage hydration, avoid all nephrotoxic medications. Admission and Anticipated Discharge Date Admission Date: December 28, 2021 Rohit Nguyen was seen and evaluated this morning. He denied specific symptoms but overall feeling terribly and seems to be in discomfort and somewhat confused and easily falling asleep.. Nephrostomy tube attached to drainage bag. Cr slightly improved. Pl critically lwo and has been passing blood clots per retum, Hb staying relatively stable. Review of Systems Review of Systems: detail ROS was not possible due to pts changes in mental status. Physical Exam Constitutional: WD/WN, vitals as above + ill appearing and + lethargic; no acute distress Neck: normal visual inspection Respiratory: Auscultation: + diminished lung sounds Cardiovascular: Rate/Rhythm: regular rate and regular rhythm Heart Sounds: normal S1 and normal S2 Extremities: no edema Skin: no rashes Neurologic: + confused; no focal motor deficits Psychiatric: Orientation: alert and cooperative Results & Data ([facility]) Vital Signs (Past 12 Hours) Vital Signs Temp Pulse Pulse Resp BP Pulse Ox O2 Del Method 12/31/21 06:27 36.6 C 75 18 184/101 H 95 Room Air 12/31/21 06:44 80 157/85 H 12/30/21 23:59 70 PG Care Time/CCT Total # of Minutes Spent Total Time Spent with Patient: Total time spent is greater than 50% in coordination of care (as documented) at patient's floor/unit and/or counseling patient: Coding Level of Care Code 30581 Subseq Hosp Care Lvl 3 Diagnoses Acute kidney injury N17.9 CKD (chronic kidney disease) stage 5, GFR less than 15 ml/min N18.5 Symptomatic anemia D64.9 Diarrhea R19.7 Hydronephrosis N13.30 Hypertension I10
[2021-12-31] MEDS: SODIUM CHLORIDE 0.9% 1000ML 1,000 ML IV SCH (09:51)
[2021-12-31 10:03] LABS: Eosinophils # (auto) 0.01 K/uL (0-0.50); Eosinophils % (auto) 1.5 %; Immature Granulocytes # (auto) 0.01 K/uL (0.00-0.02); Immature Granulocytes % (auto) 1.5 %; Lymphocytes # (auto) 0.19 K/uL (1.2-3.4); Lymphocytes % (auto) 28.4 %; Monocytes # (auto) 0.01 K/uL (0.24-0.82); Monocytes % (auto) 1.5 %; Neutrophils # (auto) 0.45 K/uL (1.4-6.5); Neutrophils % (auto) 67.1 %
[2021-12-31] MEDS ORDERED: SODIUM CHLORIDE 0.9% 250 ML IV PRN (10:25)
[2021-12-31] MEDS: ACETAMINOPHEN 325 MG TAB PO PRN (12:06)
[2021-12-31] MEDS ORDERED: HYDROmorphone INJ 0.5 MG/0.5 ML SYR IV STA ×2 (12:48→17:59)
[2021-12-31] MEDS ORDERED: HYDROmorphone INJ 0.5 MG/0.5 ML SYR IV PRN (14:10)
[2021-12-31] MEDS ORDERED: OXYBUTYNIN CHLORIDE XL 5 MG TABCR PO ONE (14:15)
--- NOTE | 2021-12-31 14:16 | Hospitalist Progress Note ---
Date of Service December 31, 2021 Assessment & Plan (1) Acute renal failure superimposed on stage 5 chronic kidney disease, not on chronic dialysis: Plan: Creatinine was about 4 in late October/early November. Was 5.1 on admission Nephrostomy tube was capped in early November after being placed 10/23/21 Creatinine since then has slowly risen. Also with copious diarrhea contributing to dehydration CT abd/pelvis here shows worsening hydronephrosis on right side since the ne phrostomy tube was capped. Pt resistant to having it uncapped/set to drainage for more than a few days as it becomes very uncomfortable He states he does NOT want dialysis, ever, but family reports he is saying that based on what some friends have told him. He knows it's a lifestyle change, but they want to make sure he knows more details about it before making a final decision--> unfortunately his mental status is not good enough to have this discussion now Appreciate Urology consultation. -have now uncapped his nephrostomy tube and placing to drainage [employer] and met acidosis both continue to improve with uncapping tube and with HCO3 gtt--> court recorder down to 4.3 -poor po intake due to mouth sore and lethargy -continue NS at 70 mL/hr until taking adequate po -follows with Dr Garcia in nephrology clinic-consult Nephrology appreciated--> recommends dc Sensipar, treat HTN with amlodipine if needed, overall poor prognosis and recommends Palliative consult -follow BMP in AM -monitor UOP, BPs, volume status -tylenol for mild pain and added IV dilaudid for severe pain from nephrostomy tube -increase oxybutynin to 10mg daily for severe spasms from tube (2) Antineoplastic chemotherapy induced pancytopenia: Plan: last chemo about 7-10 days prior to admission severe pancytopenia persists but improving with transfusions, time, and Neupogen shots s/p neupogen and 1 unit of platelets on 12/28 s/p 2 units PRBCs 12/29 s/p platelet transfusion 12/30 B12 and folate normal With mild hematuria and small clots per rectum Hgb up to 10.2 today -Plts down to 8 and pink tinged urine-->give plt transfusion again today -follow CBC -continue neutropenic precautions. hopefully approaching gentry. (3) 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: Plan: Undergoing chemotherapy CT chest/abd/pelvis to assess for worsening cancer show bladder ca is stable radiographically, but with increased size left subclavicular LN, has new small pericardial effusion - that could simply be from his progressive renal disease but can't rule out malignant effusion managed by Dr Martinez at [facility] With worsening confusion, expressive aphasia on 12/31--> Head CT shows left 1.3 cm likely mass with surrounding vasogenic edema and other possible 9 mm mass vs meningioma. Discussed with family--> plan for brain MRI 01/01 if can tolerate. Ativan for pre treatment Consult Rad Onc -would NOT use steroids for cerebral edema except at low doses for short periods given h/o severe GI bleeding from PUD after taking prednisone earlier this year (4) Acute encephalopathy: Plan: on 12/30 with some confusion intermittent but nonfocal neuro exam, no headache, seemed better after sleep 12/31 worsening confusion, expressive aphasia no hypoglycemia CT head with brain mets as above (5) Odynophagia: Plan: possible oral thrush, sores from chemo cannot tolerate magic mouthwash due to taste add fluconazole 200mg IV daily make viscous lidocaine scheduled qid (6) Hypertension: Plan: controlled to mildly elevated cont metoprolol XL 100mg po daily add on amlodipine as per Nephro if needed (7) Diabetes mellitus, type 2: Plan: with hypoglycemia earlier and now normalized Novolog SSI ordered holding home Trulicity (8) Hypothyroidism: Plan: last 2 TSH levels all high at 11-13 increase levothyroxine to 125mcg daily repeat TSH 6 weeks (9) Hyperlipidemia: Plan: continue Crestor (10) CAD (coronary atherosclerotic disease): Plan: no ischemic symptoms at this time cont beta reynaldo, statin (11) Prolonged PTT: Plan: last 3 PTTs have all been prolonged. INR is normal. he is not on anticoagulation or heparin. 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 EF normal 01/2021 monitor on tele (13) Candidal diaper rash: Plan: nystatin powder TID adding fluconazole for oral thrush (14) Chemotherapy-induced fatigue: Plan: patient complains of chronic, progressive weakness. MULTIFACTORIAL - bladder ca, pancytopenia from chemotherapy, decompensated hypot hyroidism, diarrhea, malnutrition, deconditioning, acute/chronic renal failure -- all to blame for his weakness. Now found to have likely brain mets with vasogenic edema contributing will need PT, OT while here. lives alone - has had recent falls. (15) Tinea pedis: Plan: ketoconazole cream BID (16) Pericardial effusion: Plan: small, as seen on CT here likely due to progressive renal disease cannot rule out effusion from his cancer should be followed over time (17) Bilateral foot pain: Plan: x-rays without fractures not c/o pain here anymore (18) Diarrhea: Plan: present for several months. severe at times stool biofire negative. colonoscopy by [facility] [place] [facility] late October with severe diverticular disease present and multiple polyps. at that time no colitis seen on colonoscopy despite seeing it on CT. CT a/p here - continues with findings concerning for distal colitis. radiation induced? (but typical radiation colitis findings were NOT seen on colonoscopy in October) CMV colitis? other cause? Seen by GI here and no further evaluation thought to be necessary given normal colonoscopy as above with similar CT findings Diarrhea now RESOLVED after adding colestipol 1gm BID. Had one loose stool 12/30 -continue colestipol (19) History of duodenal ulcer: Plan: 10/2021 EGD with such cont PPI twice daily (20) Hypomagnesemia: Plan: replaced and improved 2nd diarrhea & poor oral intake (21) Sepsis: Plan: admitting providers concerned about such. however, no infectious source found on CT imaging, stool BioFire,UA, and Blood cxs no growth to date Remains afebrile and BCxs now negative > 48 hrs have since dcd empiric cefepime + daptomycin. Plan pt's significant other and daughters, son extensively updated at bedside Dispo-continued stay Admission and Anticipated Discharge Date Admission Date: December 28, 2021 Subjective Pt seen on two occasions today. He was initially seen due ot having severe spasms of pain in his right flank that improved with IV dilaudid. Family at bedside noted continued issues with speech, word finding, and confusion. This has been waxing and waning since yesterday. He also has some pink tinged urine in nephrostomy bag and passed a few small red clots of blood [place] overnight. He is also having significant oral pain preventing him from eating. He has not used any of the viscous lidocaine ordered prn for him yesterday. I spent a good amount of time discussing his care with him although he was quite confused at times, his two daughters, and his partner along with Dr. Archuleta of Palliative Care. Decision made to pursue CT head, start IV fluconazole for oral thrush, make viscous lidocaine scheduled for oral pain, and continue IV dilaudid despite the drowsiness and ?confusion.Also increase oxybutynin for spasms. After CT head results came back with likely brain mets with surrounding edema, went back to discuss results. Patient was asleep after being medicated again with IV dilaudid but discussed results with 2 daughters, 1 son, and partner at bedside. Plan is to attempt MRI tomorrow if pain under control and he can be still and lie flat for MRI. Also plan to consult Rad Onc. Cannot give steroids for edema due to h/o recent severe GI bleeding from PUD after starting prednisone. I will discuss patient's CT head results with him tomorrow Tele with NSR, normal rates Review of Systems Review of Systems: All systems reviewed & are unremarkable except as noted in HPI & below Physical Exam Constitutional: WD/WN, vitals as above Eyes: + anicteric sclerae ENMT: Mouth: + oropharynx abnormality (erythematous,ulcer,no definite thrush) Neck: trachea midline, no thyromegaly Respiratory: normal respiratory effort, lungs clear to auscultation Cardiovascular: RRR, no murmur, no edema Chest (Breasts): Chest: normal inspection of chest Gastrointestinal (Abdomen): normal bowel sounds, soft, nontender, no hepatosplenomegaly Inspection/Auscultation: + abdomen abnormal to inspection (right nephrostomy tube coming from right flank,red tinged urine) Musculoskeletal: Extremities: extremities normal to inspection; no cyanosis and no clubbing Skin: no rashes, warm and dry Neurologic: moves all extremities and awake (but drowsy at times after dilaudid); no focal motor deficits Lymphatic: no lymphedema Results & Data Results & Data ([facility]) Vital Signs (Past 12 Hours) Vital Signs Temp Pulse Pulse Resp BP BP Pulse Ox 12/31/21 12:40 36.4 C L 74 18 164/71 H 12/31/21 11:25 36.7 C 82 18 158/90 H 99 12/31/21 11:20 36.4 C L 78 19 183/88 H 96 12/31/21 11:23 36.3 C L 76 18 175/77 H 12/31/21 11:08 36.4 C L 78 18 169/83 H 12/31/21 06:27 36.6 C 75 18 184/101 H 95 12/31/21 06:44 80 157/85 H O2 Del Method 12/31/21 12:40 12/31/21 11:25 12/31/21 11:20 Room Air 12/31/21 11:23 12/31/21 11:08 12/31/21 06:27 Room Air 12/31/21 06:44 Laboratory Results 12/31/21 12/31/21 12/31/21 Range/Units 20:11 16:34 11:24 WBC (4.8-10.8) K/ul RBC (4.63-6.08) M/uL Hgb (14.0-18.0) g/dl Hct (40.1-51.0) % MCV (80.0-100.0) fL MCH (25.0-34.0) pg MCHC (32.0-36.0) g/dL RDW Std Deviation (36.4-46.3) fL RDW Coeff of Josie (11.5-14.5) % Plt Count (130-400) K/uL Immature Gran % (Auto) % Neut % (Auto) % Lymph % (Auto) % [place] % (Auto) % Eos % (Auto) % Baso % (Auto) % Neut # (Auto) (1.4-6.5) K/uL Lymph # (Auto) (1.2-3.4) K/uL [place] # (Auto) (0.24-0.82) K/uL Eos # (Auto) (0-0.50) K/uL Baso # (Auto) (0-0.2) K/uL Immature Gran # (Auto) (0.00-0.02) K/uL Sodium (136-145) mmol/L Potassium (3.5-5.1) mmol/L Chloride (98-107) mmol/L Carbon Dioxide (21-32) mmol/L Anion Gap (3-11) BUN (6-23) mg/dl Creatinine (0.6-1.4) mg/dl Est Cr Clr Drug Dosing ml/min Est GFR ( Amer) ml/min Est GFR (Non-Af Amer) ml/min BUN/Creatinine Ratio (10-20) Glucose (70-99(Fasting)) mg/dl POC Glucose 99 90 75 (70-99) mg/dl Calcium (8.5-10.1) mg/dl Magnesium (1.7-2.4) mg/dl Total Bilirubin (0.2-1.0) mg/dl AST (13-39) U/L ALT (7-52) U/L Alkaline Phosphatase (34-104) U/L Total Protein (6.0-8.3) gm/dl Albumin (3.4-5.0) gm/dl Globulin (2.5-4.0) gm/dl Albumin/Globulin Ratio (0.9-2) 12/31/21 12/31/21 12/31/21 Range/Units 08:20 07:56 07:56 WBC 0.67 L* (4.8-10.8) K/ul RBC 3.47 L (4.63-6.08) M/uL Hgb 10.2 L (14.0-18.0) g/dl Hct 30.9 L (40.1-51.0) % MCV 89.0 (80.0-100.0) fL MCH 29.4 (25.0-34.0) pg MCHC 33.0 (32.0-36.0) g/dL RDW Std Deviation 53.3 H (36.4-46.3) fL RDW Coeff of Josie 16.4 H (11.5-14.5) % Plt Count 8 L* (130-400) K/uL Immature Gran % (Auto) 1.5 % Neut % (Auto) 67.1 % Lymph % (Auto) 28.4 % [place] % (Auto) 1.5 % Eos % (Auto) 1.5 % Baso % (Auto) 0.0 % Neut # (Auto) 0.45 L* (1.4-6.5) K/uL Lymph # (Auto) 0.19 L (1.2-3.4) K/uL [place] # (Auto) 0.01 L (0.24-0.82) K/uL Eos # (Auto) 0.01 (0-0.50) K/uL Baso # (Auto) 0.00 (0-0.2) K/uL Immature Gran # (Auto) 0.01 (0.00-0.02) K/uL Sodium 144 (136-145) mmol/L Potassium 3.5 (3.5-5.1) mmol/L Chloride 113 H (98-107) mmol/L Carbon Dioxide 19 L (21-32) mmol/L Anion Gap 12 H (3-11) BUN 58 H (6-23) mg/dl Creatinine 4.39 H (0.6-1.4) mg/dl Est Cr Clr Drug Dosing 13.4 ml/min Est GFR ( Amer) 14.3 ml/min Est GFR (Non-Af Amer) 12.3 ml/min BUN/Creatinine Ratio 13.2 (10-20) Glucose 64 L (70-99(Fasting)) mg/dl POC Glucose 72 (70-99) mg/dl Calcium 7.7 L (8.5-10.1) mg/dl Magnesium 1.8 (1.7-2.4) mg/dl Total Bilirubin 0.6 (0.2-1.0) mg/dl AST 10 L (13-39) U/L ALT 8 (7-52) U/L Alkaline Phosphatase 83 (34-104) U/L Total Protein 5.3 L (6.0-8.3) gm/dl Albumin 2.8 L (3.4-5.0) gm/dl Globulin 2.5 (2.5-4.0) gm/dl Albumin/Globulin Ratio 1.1 (0.9-2) 12/31/21 12/31/21 Range/Units 07:42 07:41 WBC (4.8-10.8) K/ul RBC (4.63-6.08) M/uL Hgb (14.0-18.0) g/dl Hct (40.1-51.0) % MCV (80.0-100.0) fL MCH (25.0-34.0) pg MCHC (32.0-36.0) g/dL RDW Std Deviation (36.4-46.3) fL RDW Coeff of Josie (11.5-14.5) % Plt Count (130-400) K/uL Immature Gran % (Auto) % Neut % (Auto) % Lymph % (Auto) % [place] % (Auto) % Eos % (Auto) % Baso % (Auto) % Neut # (Auto) (1.4-6.5) K/uL Lymph # (Auto) (1.2-3.4) K/uL [place] # (Auto) (0.24-0.82) K/uL Eos # (Auto) (0-0.50) K/uL Baso # (Auto) (0-0.2) K/uL Immature Gran # (Auto) (0.00-0.02) K/uL Sodium (136-145) mmol/L Potassium (3.5-5.1) mmol/L Chloride (98-107) mmol/L Carbon Dioxide (21-32) mmol/L Anion Gap (3-11) BUN (6-23) mg/dl Creatinine (0.6-1.4) mg/dl Est Cr Clr Drug Dosing ml/min Est GFR ( Amer) ml/min Est GFR (Non-Af Amer) ml/min BUN/Creatinine Ratio (10-20) Glucose (70-99(Fasting)) mg/dl POC Glucose 67 L* 65 L* (70-99) mg/dl Calcium (8.5-10.1) mg/dl Magnesium (1.7-2.4) mg/dl Total Bilirubin (0.2-1.0) mg/dl AST (13-39) U/L ALT (7-52) U/L Alkaline Phosphatase (34-104) U/L Total Protein (6.0-8.3) gm/dl Albumin (3.4-5.0) gm/dl Globulin (2.5-4.0) gm/dl Albumin/Globulin Ratio (0.9-2) PG Care Time/CCT Total # of Minutes Spent Total Time Spent with Patient: Total time spent is greater than 50% in coordination of care (as documented) at patient's floor/unit and/or counseling patient: Prolonged Care Time Prolonged Care Time: Yes Total Prolonged Care Time: 120 I spent 120 min of prolonged service time in care of this patient Coding Level of Care Code 57781 Subseq Hosp Care Lvl 3 (25 - SIGNIFICANT, SEPARATELY IDENTIFIABLE ) Diagnoses Acute renal failure superimposed on stage 5 chronic kidney disease, not on chronic dialysis N17.9; N18.5 Antineoplastic chemotherapy induced pancytopenia D61.810; T45.1X5A 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 C67.9; C78.00 Acute encephalopathy G93.40 Odynophagia R13.10 Hypertension I10 Diabetes mellitus, type 2 E11.9 Hypothyroidism E03.9 Hypothyroidism type: acquired Hyperlipidemia E78.2 Hyperlipidemia type: mixed hyperlipidemia CAD (coronary atherosclerotic disease) I25.10 Prolonged PTT R79.1 Rapid atrial fibrillation I48.91 Candidal diaper rash B37.2; L22 Chemotherapy-induced fatigue R53.83; T45.1X5A Tinea pedis B35.3 Pericardial effusion I31.3 Bilateral foot pain M79.671; M79.672 Diarrhea R19.7 History of duodenal ulcer Z87.19 Hypomagnesemia E83.42 Sepsis A41.9 Additional Codes Prolonged Care Time - Prolonged Care Time: Yes ([id number]) (1) Hyperlipidemia Hyperlipidemia type: mixed hyperlipidemia Qualified Code(s): E78.2 - Mixed hyperlipidemia (2) Hypothyroidism Hypothyroidism type: acquired Qualified Code(s): E03.9 - Hypothyroidism, unspecified
[2021-12-31] MEDS: FLUCONAZOLE 200 MG/100 ML BAG IV SCH (14:44)
[2021-12-31] MEDS: LIDOCAINE VISCOUS 2% 15 ML UDC MT SCH ×2 (14:44→17:50)
--- NOTE | 2021-12-31 15:32 | CT Scan Report ---
CT OF THE HEAD WITHOUT CONTRAST CLINICAL HISTORY: expressive aphasia,confusion. Bladder cancer. COMPARISON STUDY: PET/CT November 12, 2019. TECHNIQUE: Helical axial images of the head were obtained without IV contrast. Automated exposure con trol was utilized for the study. A dose lowering technique was utilized adhering to the principles o f ALARA. FINDINGS: No acute intracranial hemorrhage or midline shift is present. Note is made of a 3.9 cm focu s of edema within the left temporoparietal region. This contains a 1.3 cm density on axial image 10 w hich could reflect an intra-axial lesion. Overlying cortex appears to be preserved. Encephalomalacia within the right occipital lobe suggests an old infarct. Ventricular system is unremarkable. Basal ci sterns are patent. There is a 9 mm hyperdense dural focus overlying the left frontal lobe on image 19 of 32. Minimal sinus mucosal thickening. No evidence for acute sinusitis. There is trace bilateral m astoid fluid. No suspicious calvarial lesions are identified. IMPRESSION: 1. 3.9 cm focus of edema within the left temporoparietal region which contains a 1.3 cm density. Over lying cortex appears preserved. Although this could reflect an infarct, a metastasis is favored. An M RI of the brain with and without contrast could be obtained for differentiation. 2. 9 mm dural-based lesion overlying the left frontal lobe. Statistically, this reflects a meningioma . However, a dural metastasis could appear similar and this can be assessed on MRI. 3. Old right occipital lobe infarct. ACT 112: Negative or not required by law. Electronically signed by: Bunny Hilario M.D. 12/31/2021 3:30 PM
--- NOTE | 2021-12-31 16:55 | Palliative Care Consultation ---
Date of Consultation December 31, 2021 Assessment & Plan (1) Acute encephalopathy: CT shows metastatic lesion with edema. (2) Pain: He attributes pain to his nephrostomy tube. He is currently on oxybutynin and flomax for ureteral spasm. Continue prn hydromorphone which has been effective. Family notes confusion prior to opioid for pain. (3) Odynophagia: He does have an oral lesion and would be at risk for oropharyngeal candidiasis. Fluconazole per Dr. Burrows (4) Palliative care encounter: When I introduced myself as the palliative care physician, Patrick's response was "uh oh". He seems agreeable to discussion about goals of care but his ability to communicate is limited. I spoke with his daughters and friend at bedside. He has in the past refused dialysis for his progressive renal failure. His daughters note that he has a friend who had dialysis and Patrick was concerned about the effect on his quality of life. 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 He is frustrated with his decreased functional status and inability to do things that he enjoyed. They did mention, though, that he had indicated that he would consider it if it were necessary. We discussed thinking about goals of care based on what defines good quality of life and what is most important to Patrick. Family is agreeable to family meeting tomorrow at 11am to further discuss goals of care. Discussed with Dr. Burrows. (5) CKD (chronic kidney disease) stage 5, GFR less than 15 ml/min: (6) Pancytopenia: (7) 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: History of Present Illness Reason for Consultation: goals of care Requesting Physician: Dr. Burrows Attending Physician: Hannah Burrows MD History of Present Illness 76 yo gentleman diagnosed with urothelial cancer in December of 2017. He had TUBT and chemoradiation therapy after diagnosis. In 2020 he was found to have mediastinal adenopathy and was treated with multiple chemo and immunotherapy treatments but developed significant toxicity and pancytopenia. He has also had right nephrostomy tube since October for hydronephrosis. He is followed by Dr. Garcia for stage IV CKD and presented with ALESSANDRA on CKD. Family reports that he had decreased po intake and increased weakness at home prior to admission. He has had some confusion and some speech difficulty. Renal failure has improved with nephrostomy drainage and fluids. He had severe, spasmodic back pain earlier today but is resting comfortably after a dose of IV dilaudid. Allergies Allergy/AdvReac Type Severity Reaction Status Date / Time Iodinated Contrast Media AdvReac Intermediate Hypertensio Verified 12/28/21 00:51 n atorvastatin [From Lipitor] AdvReac Mild muscle Verified 12/28/21 00:51 aches Home Medications Medication Instructions Recorded Confirmed Type dulaglutide 0.75 mg/0.5 mL 0.75 mg (0.5 mL) subcut WEEKLY #2 09/19/19 12/28/21 Rx subcutaneous pen injector mL (Trulicity) albuterol sulfate 90 mcg/actuation 2 puff inhalation QID PRN 05/22/20 12/28/21 Rx aerosol inhaler (Ventolin HFA) shortness of breath or wheezing #18 grams calcitriol 0.25 mcg capsule 0.25 mcg PO QPM 07/17/21 12/28/21 History metoprolol succinate 100 mg 100 mg PO QPM #90 tabs 07/30/21 12/28/21 Rx tablet,extended release 24 hr levothyroxine 100 mcg tablet 100 mcg PO QAM #90 tabs 10/12/21 12/28/21 Rx (Synthroid) cetirizine 10 mg capsule 10 mg PO QAM 11/16/21 12/28/21 History cinacalcet 30 mg tablet 30 mg PO 3XWK 11/16/21 12/28/21 History fluticasone propionate 50 2 spray intranasal DAILY PRN 11/16/21 12/28/21 History mcg/actuation nasal Dyspnea spray,suspension lactobacillus combination no.4 3 3,000 mmu cells PO QAM 11/16/21 12/28/21 History billion cell capsule (Probiotic) pantoprazole 40 mg tablet,delayed 40 mg PO BID #60 tabs 11/19/21 12/28/21 Rx release (Protonix) allopurinol 300 mg tablet 300 mg PO QAM 11/29/21 12/28/21 History ferrous sulfate 325 mg (65 mg 325 mg PO 3XWK 11/29/21 12/28/21 History iron) tablet oxybutynin chloride 5 mg 5 mg PO QAM 11/29/21 12/28/21 History tablet,extended release 24 hr tamsulosin 0.4 mg capsule 0.4 mg PO BID 11/29/21 12/28/21 History rosuvastatin 5 mg tablet 5 mg PO QPM #90 tabs 12/10/21 12/28/21 Rx Carboplatin Tabs 1 tab PO .NAUSEA PRN prn after 12/24/21 12/28/21 History chemo Gemcitabine Pill 1 tab PO DIRECTED 12/24/21 12/28/21 History olanzapine 2.5 mg tablet 2.5 mg PO DIRECTED 12/24/21 12/28/21 History Patient History Medical History Acid reflux Acute duodenal ulcer with hemorrhage Acute kidney injury Adenomatous polyp of colon Atrial fibrillation with rapid ventricular response Benign essential hypertension Benign prostatic hyperplasia 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 Blood loss anemia CAD (coronary atherosclerotic disease) Chronic kidney disease STAGE IV Chronic obstructive pulmonary disease Diabetes mellitus, type 2 Diarrhea Hearing loss History of blood transfusion 01/2021 [facility] History of stroke without residual deficits OCCURRED DURING AAA REPAIR [facility] [place] 5-6 YRS 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-NO ISSUES SINCE Hyperlipidemia Hypothyroidism Past myocardial infarction Port-A-Cath in place Secondary hyperparathyroidism Subclavian artery aneurysm Vocal fold paralysis, left Surgical History H/O arthroscopy of knee H/O transurethral destruction of bladder lesion 08/17/2019 History of biopsy of bladder History of cardiac cath History of carpal tunnel release RIGHT History of cataract surgery BILATERAL History of colonoscopy History of cystoscopy 01/19/2020 History of esophagogastroduodenoscopy (EGD) History of lymph node biopsy Nephrostomy status R PCN placed by IR 10/23/2021 S/P AAA (abdominal aortic aneurysm) repair Status post biopsy of kidney Family History Grandfather , in his eighties No problems noted. Grandmother , young cause unknown No problems noted. Grandfather , in his eighties No problems noted. Grandmother , did have breast cancer but in her eighties of unknown cause No problems noted. Father , He in his sixties had had three strokes and high blood pressure He had had a kidney removed perhaps from cancer Stroke Mother , in her mid seventies complications from smoking No problems noted. Daughter Age: 50 No problems noted. Daughter Age: 47 No problems noted. Daughter Age: 42 No problems noted. Brother , at age 7 of a stroke Stroke Grandmother (Maternal) Breast cancer Other No family history of adverse response to anesthesia No family history of bleeding disorder Denies family history of Ovarian cancer Prostate cancer Myocardial infarction Colorectal cancer Social History Smoking Status: Current every day smoker Tobacco Type: Cigarettes Age Started Using Tobacco: 10; packs per day: 0.5; Cigarettes Per Day: 10; Second Hand Exposure: No; Hx Alcohol Use: No Hx Substance Use: No Preferred Language: Scottish Communication Ability: Impaired Visual Impairment: Partially Limited Hearing Ability: Use of Hearing Aid Student Driving Instructor Required: No Beliefs That Will Affect Care: None marital status: Current Living Situation: Significant Other current occupational status: retired How many Children do You have: 3 Feels Safe at Home: Yes Childhood Exposure to Second-Hand Smoke: Yes (Both parents smoked ) Diet Comment: Diabetic diet caffeine: Yes (Coffee tea) during the past year weight has: remained stable Dental Care, Regularly: No Physical Activity Frequency: Does not Exercise Seatbelt Use: always Sunscreen Use: No Do you think of yourself as: straight/heterosexual Assistive Devices: Glasses Review of Systems Review of Systems: ESAS Pain 3/3 earlier Dyspnea 0/3 Anxiety 1/3 Nausea 0/3 Drowsiness 0/3 Physical Exam Constitutional: no acute distress grimaces at times ENMT: Mouth: oral mucous membranes not dry no exudate noted Respiratory: normal respiratory effort Musculoskeletal: Extremities: extremities normal to inspection Neurologic: awake and + confused word searching Results & Data ([facility]) Vital Signs (Past 12 Hours) Vital Signs Temp Pulse Pulse Resp BP BP Pulse Ox 12/31/21 15:43 97.9 F 72 18 119/71 96 12/31/21 12:40 97.5 F L 74 18 164/71 H 12/31/21 11:25 98.1 F 82 18 158/90 H 99 12/31/21 11:20 97.5 F L 78 19 183/88 H 96 12/31/21 11:23 97.3 F L 76 18 175/77 H 12/31/21 11:08 97.5 F L 78 18 169/83 H 12/31/21 06:27 97.9 F 75 18 184/101 H 95 12/31/21 06:44 80 157/85 H O2 Del Method 12/31/21 15:43 Room Air 12/31/21 12:40 12/31/21 11:25 12/31/21 11:20 Room Air 12/31/21 11:23 12/31/21 11:08 12/31/21 06:27 Room Air 12/31/21 06:44 PG Care Time/CCT Total # of Minutes Spent Total Time Spent: 65 Total Time Spent with Patient: Total time spent is greater than 50% in coordination of care (as documented) at patient's floor/unit and/or counseling patient: symptom management, goals of care Coding Level of Care Code 06310 Initial Inpt Care Lvl 2 Diagnoses Acute encephalopathy G93.40 Pain R52 Odynophagia R13.10 Palliative care encounter Z51.5 CKD (chronic kidney disease) stage 5, GFR less than 15 ml/min N18.5 Pancytopenia D61.818 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 C67.9; C78.00
[2021-12-31] MEDS ORDERED: LORazepam 0.5 MG in SYRINGE 0.25 ML IV PRN (18:40)
[2021-12-31] MEDS: CALCITRIOL 0.25 MCG CAPSULE PO SCH (21:03)
[2021-12-31] MEDS: ROSUVASTATIN CALCIUM 5 MG TAB PO SCH (21:26)
[2022-01-01] MEDS: SODIUM CHLORIDE 0.9% 1000ML 1,000 ML IV SCH (02:58)
[2022-01-01] MEDS: LIDOCAINE VISCOUS 2% 15 ML UDC MT SCH ×4 (05:31→18:14)
[2022-01-01] MEDS: LEVOTHYROXINE SODIUM 125 MCG TABLET PO SCH (05:33)
[2022-01-01 05:43] LABS: Hematocrit (blood only) 27.7 % (40.1-51.0); Hemoglobin 9.3 g/dl (14.0-18.0); Mean Corpuscular Hemoglobin 29.4 pg (25.0-34.0); Mean Corpuscular Hgb Conc 33.6 g/dL (32.0-36.0); Mean Corpuscular Volume 87.7 fL (80.0-100.0); Mean Platelet Volume 10.4 fL (9.4-12.4); Platelet Count 21 K/uL (130-400); RDW Coefficient of Variation 16.2 % (11.5-14.5); RDW Standard Deviation 52.5 fL (36.4-46.3); Red Blood Count 3.16 M/uL (4.63-6.08); White Blood Count 0.49 K/ul (4.8-10.8)
[2022-01-01 06:03] LABS: Albumin Globulin Ratio 1.1 (0.9-2); Albumin Level 2.6 gm/dl (3.4-5.0); BUN Creatinine Ratio 12.8 (10-20); Bilirubin,Total 0.5 mg/dl (0.2-1.0); Calcium 7.5 mg/dl (8.5-10.1); Creatinine Clr Calc Pharmacy 13.7 ml/min; Est GFR (African American) 14.6 ml/min; Est GFR (Non-African American) 12.6 ml/min; Globulin 2.4 gm/dl (2.5-4.0); Magnesium 1.7 mg/dl (1.7-2.4); Potassium 3.4 mmol/L (3.5-5.1)
[2022-01-01] MEDS: HYDROmorphone INJ 0.5 MG/0.5 ML SYR IV PRN ×3 (06:08→18:21)
--- NOTE | 2022-01-01 08:33 | Radiation OncologyConsultation ---
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 Crews is a 76-year-old male diagnosed with high-grade bladder cancer in 2018. He was treated with chemoradiation to the pelvis and has done well. Unfortunately he was found to have evidence of metastatic disease involving the lung and mediastinum. More recently he developed expressive aphasia and a CT scan of the head was performed. This showed a 3.9 cm focus of edema within the left temporoparietal region containing a 1.3 cm density favoring metastatic deposit. MRI of the brain is pending for clarification. Treatment Options: 1. Assuming the MRI confirms a a solitary metastatic deposit the patient would be a candidate for stereotactic radiation treatments. 2. If the MRI shows multiple lesions the patient could be a candidate for whole brain irradiation. 3. The patient and/or family could decide to proceed with observation and no treatment. 4. If there is no evidence of metastatic disease and stroke only no radiation treatments would be considered and patient will be treated as appropriate for stroke. Recommendations: Review of MRI of the brain planned for today. If this shows evidence of a solitary metastatic deposit patient would likely benefit from a course of stereotactic radiation. Plan: 1. Proceed with brain MRI. 2. Review results with Dr. Martinez. 3. Discuss treatment options with the family. 4. If the decision is to go ahead with palliative treatment either stereotactic or whole brain we will arrange for the patient to be simulated. 5. Simulation could take place today pending patient's cooperation with treatment to begin next week assuming the patient is not planned to be discharged. 6. If patient is to be discharged we could proceed with simulation and treatment as an outpatient. 7. If there is no evidence of metastatic disease (stroke) then no additional radiation are necessary. History of Present Illness Reason for Consultation: Abnormal CT scan of the head. Attending Physician: Hannah Burrows MD History of Present Illness Mr. Crews is a 76-year-old male with a history of urothelial carcinoma with clear cell features initially diagnosed on 01/16/2018 involving the right lateral bladder wall. 01/16/2018. Dr. Awan performed a cystoscopy with transurethral resection of bladder tumor. This confirmed a high-grade urothelial carcinoma, clear-cell variant invading into at least the subepithelial tissue. No lymphovascular invasion was identified and muscularis propria was present within the specimen. There was evidence on the TURBT from the base of the bladder showing evidence of tumor invading muscularis propria within AJCC stage of pT2. Case #: [id number]. 02/23/2018. Patient seen by radiation oncology. Staging work-up showed no evidence of dissemination and the plan was to treat with chemoradiation. 03/20/2018. Patient starts course of chemoradiation to the pelvis. 05/11/2018. Patient completes a course of definitive radiation to encompass the bladder, prostate and pelvic nodes to a final dose to the tumor bed of 6480 cGy and bladder dose of 5940 cGy. 06/26/2018. CT chest abdomen and pelvis performed. This study was stable with moderate bladder wall thickening. In the chest there was slight increase in size of a small pericardial effusion otherwise stable. 06/29/2018. Patient seen in follow-up in radiation oncology. He recently underwent completion work-up with CT of the chest, abdomen and pelvis 10/02/2018. CT chest, abdomen and pelvis performed exam was stable. 01/02/2019. CT chest abdomen and pelvis performed exam was stable. 03/27/2019. CT chest, abdomen and pelvis performed with exam stable. 05/04/2019. Urine evaluation was negative for high-grade urothelial carcinoma. Case #: [id number]. 07/02/2019. CT chest, abdomen pelvis performed. Mild bladder wall thickening with a potential 1 cm nodular process of the posterior bladder wall was identified along with moderate stable distal esophageal wall thickening. Cystoscopy was recommended. 08/17/2019. Performed transurethral resection of the bladder neck. This showed heavily inflamed mucosa and smooth muscle with associated necrosis but negative for carcinoma. Case #: [id number]. 12/25/2019. Patient seen in radiation oncology in follow-up. CT abdomen and pelvis showed 2 sclerotic lesions identified in the bony pelvis that were felt to be highly concerning for bony metastatic disease. No additional foci of metastatic disease was appreciated in the abdomen or pelvis. No treatment was recommended from radiation and patient continued follow-up with medical oncology. 01/21/2020. Performed cystoscopy with bladder tumor transurethral resection. No viable tumor was identified. Case #: [id number]. 02/12/2020. Patient seen at [place] for a needle biopsy of a left adrenal mass was performed. This showed benign adrenal cortical glandular tissue consistent with a adrenal cortical adenoma. Accession #: [id number]. 11/27/2020. Dr. Kamron Gary performed bronchoscopy with EUS. Biopsy of level 5 AP window node confirmed metastatic urothelial carcinoma. Left upper mediastinal mass excised confirming metastatic urothelial carcinoma. Case: [id number]. Genetic testing was performed and positive for PD-L1. 07/16/2021. Dr. Martinez started the patient on pembrolizumab. 11/11/[address] scan revealed interval evolutionary changes with worsening of jackson disease in the left subclavian and mediastinal station. 11/17/2021. Stomach biopsy showed focal mild acute gastritis. Immunohistochemical stain for helical back to her pylori organism was negative. 11/19/2021. Colonoscopy with polypectomy revealed fragmented tubular adenomas case #: [id number]. 11/23/2021. Patient seen in follow-up by Dr. Martinez. She recommended restarting systemic therapy with carboplatin/gemcitabine but reduced dose. 12/27/2021. Patient seen in the emergency department complaining of weakness and generalized pain. Patient was admitted. 12/28/2021. CT of the abdomen and pelvis performed. Right nephroureteral stent was in place with moderate right hydronephrosis. There is persistent asymmetrical right lateral bladder wall thickening with asymmetric soft tissue adjacent to the right aspect of the bladder possibly representing neoplasm. There is mild colonic and rectal wall thickening similar to previous exams and no change in the mildly enlarged right common iliac lymph nodes. Small pericardial effusion again noted. CT of the chest showed no consolidation, small pericardial effusion, left supraclavicular and mediastinal pathologic lymphadenopathy minimal change compared to CT of 11/11/2021. 12/31/2021. Patient developed expressive aphasia and confusion with history of bladder cancer. CT of the head was ordered. This showed a 3.9 cm focus of edema within the left temporoparietal region containing a 1.3 cm density. Report stated that although this could reflect an infarct metastasis is favored. MRI of the brain was recommended. A 9 mm dural based lesion overlying the left frontal lobe was appreciated and statistically consistent with a meningioma however a dural metastasis could appear similar and also able to be assessed on MRI. 01/01/2022. Patient seen in his hospital room and later meeting with the patient's family to discuss potential treatment recommendations. This chart was completed in part utilizing [employer] Speech Voice Recognition software. Grammatical errors, random word insertions, pronoun errors and incomplete sentences are occasional consequence of this system due to software limitations, ambient noise and hardware issues. Any formal questions or concerns about the content, text or information contained within the body of this dictation should be directly addressed to the provider for clarification. Omer Bang MD Department of Radiation Oncology [facility] and [facility] Allergies Allergy/AdvReac Type Severity Reaction Status Date / Time Iodinated Contrast Media AdvReac Intermediate Hypertensio Verified 12/28/21 00:51 n atorvastatin [From Lipitor] AdvReac Mild muscle Verified 12/28/21 00:51 aches Home Medications Medication Instructions Recorded Confirmed Type dulaglutide 0.75 mg/0.5 mL 0.75 mg (0.5 mL) subcut WEEKLY #2 09/19/19 12/28/21 Rx subcutaneous pen injector mL (Trulicity) albuterol sulfate 90 mcg/actuation 2 puff inhalation QID PRN 05/22/20 12/28/21 Rx aerosol inhaler (Ventolin HFA) shortness of breath or wheezing #18 grams calcitriol 0.25 mcg capsule 0.25 mcg PO QPM 07/17/21 12/28/21 History metoprolol succinate 100 mg 100 mg PO QPM #90 tabs 07/30/21 12/28/21 Rx tablet,extended release 24 hr levothyroxine 100 mcg tablet 100 mcg PO QAM #90 tabs 10/12/21 12/28/21 Rx (Synthroid) cetirizine 10 mg capsule 10 mg PO QAM 11/16/21 12/28/21 History cinacalcet 30 mg tablet 30 mg PO 3XWK 11/16/21 12/28/21 History fluticasone propionate 50 2 spray intranasal DAILY PRN 11/16/21 12/28/21 History mcg/actuation nasal Dyspnea spray,suspension lactobacillus combination no.4 3 3,000 mmu cells PO QAM 11/16/21 12/28/21 History billion cell capsule (Probiotic) pantoprazole 40 mg tablet,delayed 40 mg PO BID #60 tabs 11/19/21 12/28/21 Rx release (Protonix) allopurinol 300 mg tablet 300 mg PO QAM 11/29/21 12/28/21 History ferrous sulfate 325 mg (65 mg 325 mg PO 3XWK 11/29/21 12/28/21 History iron) tablet oxybutynin chloride 5 mg 5 mg PO QAM 11/29/21 12/28/21 History tablet,extended release 24 hr tamsulosin 0.4 mg capsule 0.4 mg PO BID 11/29/21 12/28/21 History rosuvastatin 5 mg tablet 5 mg PO QPM #90 tabs 12/10/21 12/28/21 Rx Carboplatin Tabs 1 tab PO .NAUSEA PRN prn after 12/24/21 12/28/21 History chemo Gemcitabine Pill 1 tab PO DIRECTED 12/24/21 12/28/21 History olanzapine 2.5 mg tablet 2.5 mg PO DIRECTED 12/24/21 12/28/21 History Patient History Medical History (Updated 01/01/22 @ 13:06 by Hannah Burrows MD) Acid reflux Acute duodenal ulcer with hemorrhage Acute kidney injury Adenomatous polyp of colon Atrial fibrillation with rapid ventricular response Benign essential hypertension Benign prostatic hyperplasia 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 Blood loss anemia CAD (coronary atherosclerotic disease) Chronic kidney disease STAGE IV Chronic obstructive pulmonary disease Diabetes mellitus, type 2 Diarrhea Hearing loss History of blood transfusion 01/2021 [facility] History of stroke without residual deficits OCCURRED DURING AAA REPAIR [facility] 5-6 YRS 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-NO ISSUES SINCE Hyperlipidemia Hypothyroidism Past myocardial infarction Port-A-Cath in place Secondary hyperparathyroidism Stroke Subclavian artery aneurysm Vocal fold paralysis, left Surgical History H/O arthroscopy of knee H/O transurethral destruction of bladder lesion 08/17/2019 History of biopsy of bladder History of cardiac cath History of carpal tunnel release RIGHT History of cataract surgery BILATERAL History of colonoscopy History of cystoscopy 01/19/2020 History of esophagogastroduodenoscopy (EGD) History of lymph node biopsy Nephrostomy status R PCN placed by IR 10/23/2021 S/P AAA (abdominal aortic aneurysm) repair Status post biopsy of kidney Family History Grandfather , in his eighties No problems noted. Grandmother , young cause unknown No problems noted. Grandfather , in his eighties No problems noted. Grandmother , did have breast cancer but in her eighties of unknown cause No problems noted. Father , He in his sixties had had three strokes and high blood pressure He had had a kidney removed perhaps from cancer Stroke Mother , in her mid seventies complications from smoking No problems noted. Daughter Age: 50 No problems noted. Daughter Age: 47 No problems noted. Daughter Age: 42 No problems noted. Brother , at age 7 of a stroke Stroke Grandmother (Maternal) Breast cancer Other No family history of adverse response to anesthesia No family history of bleeding disorder Denies family history of Ovarian cancer Prostate cancer Myocardial infarction Colorectal cancer Social History Smoking Status: Current every day smoker Tobacco Type: Cigarettes Age Started Using Tobacco: 10; packs per day: 0.5; Cigarettes Per Day: 10; Second Hand Exposure: No; Hx Alcohol Use: No Hx Substance Use: No Preferred Language: Greenlandic Communication Ability: Impaired Visual Impairment: Partially Limited Hearing Ability: Use of Hearing Aid Italian Teacher Required: No Beliefs That Will Affect Care: None marital status: Current Living Situation: Significant Other current occupational status: retired How many Children do You have: 3 Feels Safe at Home: Yes Childhood Exposure to Second-Hand Smoke: Yes (Both parents smoked ) Diet Comment: Diabetic diet caffeine: Yes (Coffee tea) during the past year weight has: remained stable Dental Care, Regularly: No Physical Activity Frequency: Does not Exercise Seatbelt Use: always Sunscreen Use: No Do you think of yourself as: straight/heterosexual Assistive Devices: Glasses Physical Exam Constitutional: The patient appears well-developed and well-nourished but is difficult to respond and follow directions. He is not able to state where he is or state his name. ENMT: Examination of the oral cavity reveals some erythematous and mucosal changes. Neck: There is no palpable cervical or supraclavicular adenopathy. No thyroid enlargement. Trachea is midline. Respiratory: Patient has normal respiratory effort and the lungs are basically clear to auscultation and percussion. Cardiovascular: Heart regular rhythm without murmurs. Gastrointestinal (Abdomen): Abdomen is soft with right nephrostomy tube coming out of the right flank and some surrounding tenderness. There is no hepatosplenomegaly appreciated. Musculoskeletal: Patient appears to have full range of motion of his arms and legs. Skin: No rashes and the skin is warm and dry. Neurologic: Patient is awake and appears able to move all extremities but appears to have persistent expressive aphasia. He was unable to answer where he is and stating his name. Lymphatic: No obvious lymphadenopathy appreciated. Results (Rad Onc) Laboratory Results: were reviewed and pertinent findings noted in HPI Pathology Results: were reviewed and pertinent findings noted in HPI Imaging Studies: were reviewed and pertinent findings noted in HPI Additional Studies Patient is scheduled to have an MRI of the brain today. This will hopefully clarify the changes seen on CT scan. MRI of the brain showed a 4.2 cm focus of restricted diffusion within the left temporoparietal region which corresponds to the finding on prior head CT scan. This represents an acute infarct and contains a subtle 6 mm hyperintense focus suggestive of trace blood products. A short-term follow-up head CT in 24 to 48 hours is recommended. There is no evidence of metastatic disease on this unenhanced exam. Image follow-up is recommended to ensure expected evolution of the infarct. Time Spent Attending This documentation has been prepared in full by Dr. Bang. I have personally reviewed the services described and have reviewed the documentation to ensure its accuracy. I spent 30 minutes with direct face to face interaction with the patient and his family which included obtaining clinical information, recommending a plan of action and answering questions. I spent 20 minutes reviewing his chart and scans and discussion with radiology. FABRICIO
[2022-01-01] MEDS: TAMSULOSIN HCL 0.4 MG CAP PO SCH ×2 (08:34→20:35)
[2022-01-01] MEDS: CETIRIZINE HCL 10 MG TABLET PO SCH (08:34)
[2022-01-01] MEDS: ADVANCED PROBIOTIC 1250 MG CAPSULE PO SCH (08:35)
[2022-01-01] MEDS: METOPROLOL SUCC 50MG EXT REL TAB PO SCH (08:35)
[2022-01-01] MEDS: PANTOprazole 40 MG TAB PO SCH ×2 (08:36→20:35)
[2022-01-01] MEDS: FERROUS SULFATE 325 MG TAB PO SCH (08:36)
[2022-01-01] MEDS: allopurinoL 300 MG TAB PO SCH (08:36)
[2022-01-01] MEDS: INSULIN ASPART PER UNIT SC SCH ×4 (08:37→20:36)
[2022-01-01] MEDS: KETOCONAZOLE 2% CR 15 GM TUBE EXT SCH ×2 (08:38→20:35)
[2022-01-01] MEDS: NYSTATIN POWDER 15GM BTL EXT SCH ×3 (08:41→20:36)
[2022-01-01] MEDS: OXYBUTYNIN CHLORIDE XL 5 MG TABCR PO SCH (09:20)
[2022-01-01] MEDS: SODIUM BICARBONATE 650 MG TAB PO SCH ×2 (09:20→20:35)
--- NOTE | 2022-01-01 10:02 | Nephrology Progress Note ---
Date of Service January 01, 2022 Assessment & Plan (1) Acute kidney injury: (2) CKD (chronic kidney disease) stage 5, GFR less than 15 ml/min: (3) Symptomatic anemia: (4) Diarrhea: (5) Hydronephrosis: (6) Hypertension: Plan 76 the year old gentlemen with the stage IV/5 CKD in the setting of right-sided hydronephrosis with metastatic bladder cancer, hypertension, diabetes, lately creatinine has been staying around 4.0. Admitted with generalized weakness and diarrhea, diarrhea seems to have stopped and most likely related to prior chemotherapy. On admission noted to have ALESSANDRA with creatinine 5.0 associated with metabolic acidosis but normal potassium. Noted to have critical pancytopenia again most likely chemotherapy induced. CT showed a worsening right-sided hydronephrosis while the nephrostomy tube has been clamped. Nephrostomy unclamped yesterday. Slight improvement in cr today. BP high, ? related to pain. CT brain showed 9 cm focus of edema within the left temporoparietal and a 2. 9 mm dural-based lesion overlying the left frontal lobe concerning for metastasis, waiting on MRI. Seen by palliative care yesterday but so far no decision was made and plan for to wait for MRI and then decide. --overall doing poorly although cr slightly improved, prognosis remains poor with New finding of possible brain metastatic disease, advanced renal impairment, myelosuppression with chemo for metastatic ca. --continue to monitor renal function and correct electrolyte abnormality as needed. However, he has advanced and decided to not to consider dialysis in future which seems reasonable. -- dose medications for eGFR less than 15, encourage hydration, avoid all nephrotoxic medications. will continue to follow along the primary team while making treatment decision. Admission and Anticipated Discharge Date Admission Date: December 28, 2021 Rohit Nguyen was seen and evaluated this morning. He remains somewhat confused and did not engage in a meaningful conversation. Nephrostomy tube attached to drainage bag. Cr slightly improved. Review of Systems Review of Systems: detail ROS was not possible due to pts changes in mental status. Physical Exam Constitutional: WD/WN, vitals as above + ill appearing and + lethargic; no acute distress Neck: normal visual inspection Respiratory: Auscultation: + diminished lung sounds Cardiovascular: Rate/Rhythm: regular rate and regular rhythm Heart Sounds: normal S1 and normal S2 Extremities: no edema Skin: no rashes Neurologic: + confused; no focal motor deficits Psychiatric: Orientation: alert and cooperative Results & Data ([facility]) Vital Signs (Past 12 Hours) Vital Signs Temp Pulse Pulse Resp BP BP Pulse Ox 01/01/22 08:03 37.1 C 76 18 163/84 H 99 01/01/22 07:26 81 01/01/22 04:00 36.8 C 89 18 137/88 96 12/31/21 23:48 67 12/31/21 23:16 36.6 C 84 18 115/81 97 O2 Del Method 01/01/22 08:03 Room Air 01/01/22 07:26 01/01/22 04:00 Room Air 12/31/21 23:48 12/31/21 23:16 Room Air PG Care Time/CCT Total # of Minutes Spent Total Time Spent with Patient: Total time spent is greater than 50% in coordination of care (as documented) at patient's floor/unit and/or counseling patient: Coding Level of Care Code 84320 Subseq Hosp Care Lvl 3 Diagnoses Acute kidney injury N17.9 CKD (chronic kidney disease) stage 5, GFR less than 15 ml/min N18.5 Symptomatic anemia D64.9 Diarrhea R19.7 Hydronephrosis N13.30 Hypertension I10
--- NOTE | 2022-01-01 10:25 | XRay Report ---
XR orbits for MRI CLINICAL HISTORY: Screening for foreign body for MRI TECHNIQUE: AP and lateral views of the orbits were submitted for interpretation. Comparison: Comparison is made to CT head 12/31/2021 and PET/CT 11/11/2021 FINDINGS/IMPRESSION: No metallic densities are seen in the cranium and orbits. There is a metal plate in the lower face wh ich corresponds to mandibular prosthesis seen on PET/CT. ACT 112: Negative or not required by law. Electronically signed by: Eleuterio Cameron M.D. 01/01/2022 10:24 AM
[2022-01-01] MEDS: D5W AND 1/2NSS 1,000 ML IV SCH (10:47)
[2022-01-01] MEDS: COLESTIPOL HCL 1 GM TAB PO SCH ×2 (10:51→20:34)
--- NOTE | 2022-01-01 11:35 | Urology Progress Note ---
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: Plan: 76-year-old male with metastatic bladder cancer Unfortunately it appears that he has now progressed to brain disease as well Has an MRI scheduled later this morning Has consulted with palliative care His family was accompanying him today and they were having discussions about how to proceed For now I think it is best to leave his nephrostomy tube unclamped He has had some improvement in his kidney function His hemoglobin is stable He is scheduled to have nephrostomy exchange next month I have suggested to the family that they should not pursue dialysis Admission and Anticipated Discharge Date Admission Date: December 28, 2021 Subjective Subjectively doing okay Still having some word finding difficulties Has an MRI scheduled for later this morning Has consulted with palliative care Accompanied by a group of family members today We had a discussion about long-term expectations Physical Exam Constitutional: well developed and well nourished Respiratory: no respiratory distress Cardiovascular: Extremities: no pedal edema Gastrointestinal (Abdomen): Inspection/Auscultation: abdomen normal to inspection Results & Data ([facility]) Vital Signs (Past 12 Hours) Vital Signs Temp Pulse Pulse Resp BP BP Pulse Ox 01/01/22 11:20 37 C 73 18 151/85 H 92 01/01/22 08:03 37.1 C 76 18 163/84 H 99 01/01/22 07:26 81 01/01/22 04:00 36.8 C 89 18 137/88 96 12/31/21 23:48 67 O2 Del Method 01/01/22 11:20 Room Air 01/01/22 08:03 Room Air 01/01/22 07:26 01/01/22 04:00 Room Air 12/31/21 23:48 PG Care Time/CCT Total # of Minutes Spent Total Time Spent with Patient: Total time spent is greater than 50% in coordination of care (as documented) at patient's floor/unit and/or counseling patient: Coding Level of Care Code 38235 Subseq Hosp Care Lvl 2 Diagnoses 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
--- NOTE | 2022-01-01 12:28 | Magnetic Resonance Report ---
MRI OF THE BRAIN WITHOUT CONTRAST CLINICAL HISTORY: possible brain met on CT,met bladder CA COMPARISON STUDY: Head CT December 31, 2021. TECHNIQUE: Utilizing a 1.5 Latia magnet and dedicated coil, multiplanar, multiecho imaging of the bra in was performed without IV contrast given significant renal insufficiency. FINDINGS: Note is made of a 4.2 cm focus of restricted diffusion within the left temporoparietal butch on which corresponds to the finding on head CT of December 31, 2021. This is hypointense on the ADC m ap. This represents an acute infarct. This contains a faint 6 mm T1 hyperintense focus which suggests trace blood products. There are additional small multifocal acute periventricular infarcts within th e bilateral cerebral hemispheres. These have no significant mass effect. An old infarct within the ri ght occipital lobe is noted. Evaluation for metastatic disease is suboptimal given lack of postcontra st imaging. There is no evidence for metastatic disease on this exam. Note is made of dural thickenin g shown on coronal FLAIR sequence, greater on the left. There are a few extra-axial abnormalities ove rlying the left frontal lobe. The largest measures 2.9 x 0.7 cm. The smaller focus measures 1.8 x 0.5 cm and corresponds to the extra-axial abnormality on head CT. No calvarial marrow replacement is pre sent. Ventricular system is unremarkable. Basal cisterns are patent. IMPRESSION: 1. 4.2 cm focus of restricted effusion within the left temporoparietal region which corresponds to th e finding on prior head CT. This represents an acute infarct and contains a subtle 6 mm T1 hyperinten se focus suggestive of trace blood products. A short-term follow-up head CT in 24 to 48 hours is bry mmended. 2. Additional small multifocal acute periventricular infarcts. These are likely embolic. 3. Several left-sided dural abnormalities, including suspected dural thickening and possible small ag e indeterminate subdural hematomas, as described above. These can also be assessed on follow-up head CT. 4. No evidence of metastatic disease on this unenhanced exam. However, imaging follow-up is recommend ed to ensure expected evolution of the infarcts. ACT 112: Negative or not required by law. Electronically signed by: Bunny Hialrio M.D. 01/01/2022 12:27 PM
--- NOTE | 2022-01-01 12:52 | Hospitalist Progress Note ---
Date of Service January 01, 2022 Assessment & Plan (1) Acute renal failure superimposed on stage 5 chronic kidney disease, not on chronic dialysis: Plan: Creatinine was about 4 in late October/early November. Was 5.1 on admission Nephrostomy tube was capped in early November after being placed 10/23/21 Creatinine since then has slowly risen. Also with copious diarrhea contributing to dehydration CT abd/pelvis here shows worsening hydronephrosis on right side since the ne phrostomy tube was capped. Pt resistant to having it uncapped/set to drainage for more than a few days as it becomes very uncomfortable He states he does NOT want dialysis, and now given very poor prognosis 2/2 metastatic CA, dialysis is not even an option Appreciate Urology consultation. -have now uncapped his nephrostomy tube and placing to drainage-due to this type of stent causing a lot of discomfort--> Urology suggests either removing it entirely (which may hasten due to worsening renal failure) vs exchanging it for a shorter tube which may be more comfortable. Family weighing options Transfer [facility] [employer] and met acidosis both modestly improved with uncapping tube and with HCO3 gtt--> balance wheel hand filer down to 4.3 -start NaHCO3 650mg po bid -poor po intake due to mouth sore and lethargy -change IVFs to D51/2 NS at 70 mL/hr -follows with Dr Garcia in nephrology clinic-consult Nephrology appreciated--> recommends dc Sensipar, treat HTN with amlodipine if needed, overall poor prognosis and recommends Palliative consult -follow BMP in AM -monitor UOP, BPs, volume status -tylenol for mild pain and added IV dilaudid for severe pain from nephrostomy tube -increased oxybutynin to 10mg daily for severe spasms from tube; continue Flomax bid for spasms (2) Antineoplastic chemotherapy induced pancytopenia: Plan: last chemo about 7-10 days prior to admission severe pancytopenia persists but improving with transfusions, time, and Neupogen shots s/p neupogen and 1 unit of platelets on 12/28 s/p 2 units PRBCs 12/29 s/p platelet transfusion 12/30 and 12/31 B12 and folate normal With mild hematuria and small clots per rectum , now with small amounts of ICH associated with CVA and possible SDHs Hgb up to 9.3 -Plts up to 21k, no transfusion needed today -follow CBC -continue neutropenic precautions. hopefully approaching gentry. (3) 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: Plan: Undergoing chemotherapy CT chest/abd/pelvis to assess for worsening cancer show bladder ca is stable radiographically, but with increased size left subclavicular LN, has new small pericardial effusion - that could simply be from his progressive renal disease but can't rule out malignant effusion managed by Dr Martinez at [facility] With worsening confusion, expressive aphasia on 12/31--> Head CT shows left 1.3 cm likely mass with surrounding vasogenic edema and other possible 9 mm mass vs meningioma. Brain MRI 01/01 does show left temporal-parietal CVA with small focus of hemorrhage and multiple bilat smaller CVAs suggestive of embolic nature Cannot rule out brain mets given lack of contrast Consult Rad Onc appreciated but since turns out to have CVAs and NOT definitive brain mets, no role for radiation tx -would NOT use steroids for cerebral edema except at low doses for short periods given h/o severe GI bleeding from PUD after taking prednisone earlier this year Palliative Consult appreciated--> most likely family looking to pursue Hospice but want to wait to see if patient will be able to participate in discussions regarding this decision over the next day or so (4) Acute encephalopathy: Plan: as above, was likely related to acute bilat CVAs (5) Odynophagia: Plan: possible oral thrush, sores from chemo cannot tolerate magic mouthwash due to taste -continue fluconazole 200mg IV daily -continue viscous lidocaine scheduled qid (6) Hypertension: Plan: controlled to mildly elevated cont metoprolol XL 100mg po daily add on amlodipine as per Nephro if needed (7) Diabetes mellitus, type 2: Plan: with hypoglycemia earlier and now normalized Novolog SSI ordered holding home Trulicity (8) Hypothyroidism: Plan: last 2 TSH levels all high at 11-13 increase levothyroxine to 125mcg daily repeat TSH 6 weeks (9) Hyperlipidemia: Plan: continue Crestor (10) CAD (coronary atherosclerotic disease): Plan: no ischemic symptoms at this time cont beta reynaldo, statin (11) Prolonged PTT: Plan: last 3 PTTs have all been prolonged. INR is normal. he is not on anticoagulation or heparin. 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 EF normal 01/2021 monitor on tele (13) Candidal diaper rash: Plan: nystatin powder TID added fluconazole for oral thrush (14) Chemotherapy-induced fatigue: Plan: patient complains of chronic, progressive weakness. MULTIFACTORIAL - bladder ca, pancytopenia from chemotherapy, decompensated h ypothyroidism, diarrhea, malnutrition, deconditioning, acute/chronic renal failure, and now acute CVAs -- all to blame for his weakness. will need PT, OT while here. WIll need rehab placement lives alone - has had recent falls. (15) Tinea pedis: Plan: ketoconazole cream BID (16) Pericardial effusion: Plan: small, as seen on CT here likely due to progressive renal disease cannot rule out effusion from his cancer should be followed over time (17) Bilateral foot pain: Plan: x-rays without fractures not c/o pain here anymore (18) Diarrhea: Plan: present for several months. severe at times stool biofire negative. colonoscopy by [facility] late October with severe diverticular disease present and multiple polyps. at that time no colitis seen on colonoscopy despite seeing it on CT. CT a/p here - continues with findings concerning for distal colitis. radiation induced? (but typical radiation colitis findings were NOT seen on colonoscopy in October) CMV colitis? other cause? Seen by GI here and no further evaluation thought to be necessary given normal colonoscopy as above with similar CT findings Diarrhea now RESOLVED after adding colestipol 1gm BID. Had one loose stool 12/30 -continue colestipol (19) History of duodenal ulcer: Plan: 10/2021 EGD with such cont PPI twice daily (20) Hypomagnesemia: Plan: replaced and improved 2nd diarrhea & poor oral intake (21) Sepsis: Plan: admitting providers concerned about such. however, no infectious source found on CT imaging, stool BioFire,UA, and Blood cxs no growth to date Remains afebrile and BCxs now negative > 48 hrs have since dcd empiric cefepime + daptomycin. (22) Stroke: Plan: as above 2/2 Afib, embolic CVAs in setting of not being anticoagulated due to GI bleeds, severe thrombocytopenia no further workup needed especially as likely pursuing hospice Plan pt's significant other and daughters, son extensively updated at bedside Dispo-continued stay, likely to SNF on Tuesday Admission and Anticipated Discharge Date Admission Date: December 28, 2021 Subjective Pt with improved pain control today with continued dilaudid prn. Also received ativan for MRI. Is drowsy but is OOB to chair with all family in room and they are trying to feed him. Still having expressive aphasia. I discussed his care with Dr. Martinez his Oncologist as well as Dr. Archuleta of Palliative Med. Family is leaning toward going with Hospice given everything transpiring. Tele with NSR, rates 60-80s Review of Systems Review of Systems: Unobtainable due to cognitive status Physical Exam Constitutional: WD/WN, vitals as above Eyes: + anicteric sclerae Neck: trachea midline, no thyromegaly Respiratory: normal respiratory effort, lungs clear to auscultation Cardiovascular: RRR, no murmur, no edema Chest (Breasts): Chest: normal inspection of chest Gastrointestinal (Abdomen): normal bowel sounds, soft, nontender, no hepatosplenomegaly Musculoskeletal: Extremities: extremities normal to inspection; no cyanosis and no clubbing Skin: no rashes, warm and dry Neurologic: moves all extremities; no focal motor deficits Speech / Cognition: + expressive aphasia Psychiatric: Orientation: alert and cooperative Lymphatic: no lymphedema Results & Data Results & Data ([facility]) Vital Signs (Past 12 Hours) Vital Signs Temp Pulse Pulse Resp BP BP Pulse Ox 01/01/22 11:20 37 C 73 18 151/85 H 92 01/01/22 08:03 37.1 C 76 18 163/84 H 99 01/01/22 07:26 81 01/01/22 04:00 36.8 C 89 18 137/88 96 O2 Del Method 01/01/22 11:20 Room Air 01/01/22 08:03 Room Air 01/01/22 07:26 01/01/22 04:00 Room Air Laboratory Results 01/01/22 01/01/2222 Range/Units 12:20 07:49 05:26 WBC 0.49 L* (4.8-10.8) K/ul RBC 3.16 L (4.63-6.08) M/uL Hgb 9.3 L (14.0-18.0) g/dl Hct 27.7 L (40.1-51.0) % MCV 87.7 (80.0-100.0) fL MCH 29.4 (25.0-34.0) pg MCHC 33.6 (32.0-36.0) g/dL RDW Std Deviation 52.5 H (36.4-46.3) fL RDW Coeff of Josie 16.2 H (11.5-14.5) % Plt Count 21 L* D (130-400) K/uL MPV 10.4 (9.4-12.4) fL Immature Gran % (Auto) Cancelled Neut % (Auto) Cancelled Lymph % (Auto) Cancelled Pecos % (Auto) Cancelled Eos % (Auto) Cancelled Baso % (Auto) Cancelled Neut # (Auto) Cancelled Lymph # (Auto) Cancelled [place] # (Auto) Cancelled Eos # (Auto) Cancelled Baso # (Auto) Cancelled Immature Gran # (Auto) Cancelled Neutrophils % (Manual) Cancelled Band Neutrophils % Cancelled Lymphocytes % (Manual) Cancelled Prolymphocyte % Cancelled Reactive Lymphs % (Man) Cancelled Monocytes % (Manual) Cancelled Eosinophils % (Manual) Cancelled Basophils % (Manual) Cancelled Metamyelocytes % (Man) Cancelled Myelocytes % (Man) Cancelled Promyelocytes % (Man) Cancelled Blast Cells % (Manual) Cancelled Plasma Cell % (Manual) Cancelled Other Cells % Cancelled Nucleated RBC % Cancelled Neutrophils # (Manual) Cancelled Band Neutrophils # Cancelled Total Absolute Neuts Cancelled Lymphocytes # (Manual) Cancelled Prolymphocyte # Cancelled Reactive Lymphs # Cancelled Total Abs Lymphocytes Cancelled Monocytes # (Manual) Cancelled Eosinophils # (Manual) Cancelled Basophils # (Manual) Cancelled Metamyelocytes # (Man) Cancelled Myelocytes # (Manual) Cancelled Promyelocytes # (Man) Cancelled Blast Cells # (Man) Cancelled Plasma Cell # (Manual) Cancelled Other Cells # Cancelled Nucleated RBCs # (Man) Cancelled Hypersegmented Neuts Cancelled Hyposegmented Neuts Cancelled Hypogranular Neuts Cancelled Large Granular Lymphs Cancelled # Lrg Granular Lymphs Cancelled Hairy Cells Cancelled Smudge Cells Cancelled Toxic Granulation Cancelled Toxic Vacuolation Cancelled Dohle Bodies Cancelled Ludin Rods Cancelled Hypogranular Platelets Cancelled Clumped Platelets Cancelled Giant Platelets Cancelled Platelet Satelliting Cancelled RBC Morphology Cancelled Polychromasia Cancelled Hypochromasia Cancelled Poikilocytosis Cancelled Basophilic Stippling Cancelled Anisocytosis Cancelled Microcytosis Cancelled Macrocytosis Cancelled Spherocytes Cancelled Pappenheimer Bodies Cancelled Sickle Cells Cancelled Target Cells Cancelled Tear Drop Cells Cancelled Ovalocytes Cancelled Stomatocytes Cancelled Barrera-Nectar Bodies Cancelled Echinocytes Cancelled Acanthocytes (Spur) Cancelled Rouleaux Cancelled RBC Agglutinates Cancelled Schistocytes Cancelled Sezary Cell Cancelled Sodium (136-145) mmol/L Potassium (3.5-5.1) mmol/L Chloride (98-107) mmol/L Carbon Dioxide (21-32) mmol/L Anion Gap (3-11) BUN (6-23) mg/dl Creatinine (0.6-1.4) mg/dl Est Cr Clr Drug Dosing ml/min Est GFR ( Amer) ml/min Est GFR (Non-Af Amer) ml/min BUN/Creatinine Ratio (10-20) Glucose (70-99(Fasting)) mg/dl POC Glucose 102 H 95 (70-99) mg/dl Calcium (8.5-10.1) mg/dl Magnesium (1.7-2.4) mg/dl Total Bilirubin (0.2-1.0) mg/dl AST (13-39) U/L ALT (7-52) U/L Alkaline Phosphatase (34-104) U/L Total Protein (6.0-8.3) gm/dl Albumin (3.4-5.0) gm/dl Globulin (2.5-4.0) gm/dl Albumin/Globulin Ratio (0.9-2) Blood Parasites ID Cancelled 01/01/22 12/31/21 12/31/21 Range/Units 05:26 20:11 16:34 WBC (4.8-10.8) K/ul RBC (4.63-6.08) M/uL Hgb (14.0-18.0) g/dl Hct (40.1-51.0) % MCV (80.0-100.0) fL MCH (25.0-34.0) pg MCHC (32.0-36.0) g/dL RDW Std Deviation (36.4-46.3) fL RDW Coeff of Josie (11.5-14.5) % Plt Count (130-400) K/uL MPV (9.4-12.4) fL Immature Gran % (Auto) Neut % (Auto) Lymph % (Auto) Pecos % (Auto) Eos % (Auto) Baso % (Auto) Neut # (Auto) Lymph # (Auto) [place] # (Auto) Eos # (Auto) Baso # (Auto) Immature Gran # (Auto) Neutrophils % (Manual) Band Neutrophils % Lymphocytes % (Manual) Prolymphocyte % Reactive Lymphs % (Man) Monocytes % (Manual) Eosinophils % (Manual) Basophils % (Manual) Metamyelocytes % (Man) Myelocytes % (Man) Promyelocytes % (Man) Blast Cells % (Manual) Plasma Cell % (Manual) Other Cells % Nucleated RBC % Neutrophils # (Manual) Band Neutrophils # Total Absolute Neuts Lymphocytes # (Manual) Prolymphocyte # Reactive Lymphs # Total Abs Lymphocytes Monocytes # (Manual) Eosinophils # (Manual) Basophils # (Manual) Metamyelocytes # (Man) Myelocytes # (Manual) Promyelocytes # (Man) Blast Cells # (Man) Plasma Cell # (Manual) Other Cells # Nucleated RBCs # (Man) Hypersegmented Neuts Hyposegmented Neuts Hypogranular Neuts Large Granular Lymphs # Lrg Granular Lymphs Hairy Cells Smudge Cells Toxic Granulation Toxic Vacuolation Dohle Bodies Ludin Rods Hypogranular Platelets Clumped Platelets Giant Platelets Platelet Satelliting RBC Morphology Polychromasia Hypochromasia Poikilocytosis Basophilic Stippling Anisocytosis Microcytosis Macrocytosis Spherocytes Pappenheimer Bodies Sickle Cells Target Cells Tear Drop Cells Ovalocytes Stomatocytes Barrera-Nectar Bodies Echinocytes Acanthocytes (Spur) Rouleaux RBC Agglutinates Schistocytes Sezary Cell Sodium 143 (136-145) mmol/L Potassium 3.4 L (3.5-5.1) mmol/L Chloride 115 H (98-107) mmol/L Carbon Dioxide 17 L (21-32) mmol/L Anion Gap 11 (3-11) BUN 55 H (6-23) mg/dl Creatinine 4.31 H (0.6-1.4) mg/dl Est Cr Clr Drug Dosing 13.7 ml/min Est GFR ( Amer) 14.6 ml/min Est GFR (Non-Af Amer) 12.6 ml/min BUN/Creatinine Ratio 12.8 (10-20) Glucose 94 (70-99(Fasting)) mg/dl POC Glucose 99 90 (70-99) mg/dl Calcium 7.5 L (8.5-10.1) mg/dl Magnesium 1.7 (1.7-2.4) mg/dl Total Bilirubin 0.5 (0.2-1.0) mg/dl AST 14 (13-39) U/L ALT 9 (7-52) U/L Alkaline Phosphatase 77 (34-104) U/L Total Protein 5.0 L (6.0-8.3) gm/dl Albumin 2.6 L (3.4-5.0) gm/dl Globulin 2.4 L (2.5-4.0) gm/dl Albumin/Globulin Ratio 1.1 (0.9-2) Blood Parasites ID PG Care Time/CCT Total # of Minutes Spent Total Time Spent with Patient: Total time spent is greater than 50% in coordination of care (as documented) at patient's floor/unit and/or counseling patient: Coding Level of Care Code 67197 Subseq Hosp Care Lvl 3 Diagnoses Acute renal failure superimposed on stage 5 chronic kidney disease, not on chr onic dialysis N17.9; N18.5 Antineoplastic chemotherapy induced pancytopenia D61.810; T45.1X5A 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 C67.9; C78.00 Acute encephalopathy G93.40 Odynophagia R13.10 Hypertension I10 Diabetes mellitus, type 2 E11.9 Hypothyroidism E03.9 Hypothyroidism type: acquired Hyperlipidemia E78.2 Hyperlipidemia type: mixed hyperlipidemia CAD (coronary atherosclerotic disease) I25.10 Prolonged PTT R79.1 Rapid atrial fibrillation I48.91 Candidal diaper rash B37.2; L22 Chemotherapy-induced fatigue R53.83; T45.1X5A Tinea pedis B35.3 Pericardial effusion I31.3 Bilateral foot pain M79.671; M79.672 Diarrhea R19.7 History of duodenal ulcer Z87.19 Hypomagnesemia E83.42 Sepsis A41.9 Stroke I63.9 (1) Hyperlipidemia Hyperlipidemia type: mixed hyperlipidemia Qualified Code(s): E78.2 - Mixed hyperlipidemia (2) Hypothyroidism Hypothyroidism type: acquired Qualified Code(s): E03.9 - Hypothyroidism, unspecified
[2022-01-01] MEDS: FLUCONAZOLE 200 MG/100 ML BAG IV SCH (14:53)
--- NOTE | 2022-01-01 15:25 | Palliative Care Progress Note ---
Date of Service January 01, 2022 Assessment & Plan (1) Pain: Plan: spasmodic back pain. On oxybutynin, flomax, prn hydromorphone. Dr. Awan has discussed replacement or possible removal of nephrostomy tube as an outpatient. They are considering options. (2) Palliative care encounter: Plan: I explained possible metastatic lesion to Patrick and goal of MRI to clarify metastatic lesion versus CVA. He seems to acknowledge this but is unable to participate in goals of care discussion. I talked with his friend Marifer, daughters and son about options for care. We discussed option of palliative radiation for brain met and Dr. Bang spoke with the family. During the course of our visit, MRI results showed CVA in left parietal region with numerous additional small infarcts. Family asked about risk of additional strokes which is certainly a possibility with his afib and anticoagulation on hold after GI bleed. He is also at risk for bleeding with thrombocytopenia. We discussed need for transfusion with pancytopenia and likelihood that he would be dependent on transfusions if continued. We discussed over poor prognosis with his comorbidities and family indicates that relieving his pain and getting him home would be their priorities. We talked about having home care or hospice at home however, they would need additional caregivers if he were at home. They are considering SNF and case management is aware. They asked about prognosis which is likely weeks at this point. They are considering removing nephrostomy tube and we talked about what dying from renal failure would look like. They are hopeful that Patrick can participate in the discussion and want him to be comfortable but would like to talk as a family in more detail about goals at this time. Discussed with Dr. Burrows and Dr. Bang. Admission and Anticipated Discharge Date Admission Date: December 28, 2021 Subjective Had hydromorphone in anticipation of MRI, sleepy but answers some questions. Grimaces at times but hydromorphone has been effective for pain. Two doses (10mg OME) so far today. Family at bedside. Review of Systems Review of Systems: ESAS Pain 1/3 Dyspnea 0/3 Drowsiness 1/3 PPS40% Physical Exam Constitutional: no acute distress Respiratory: normal respiratory effort; no labored breathing Musculoskeletal: Extremities: + muscle atrophy Neurologic: + confused mild lethargy Results & Data ([facility]) Vital Signs (Past 12 Hours) Vital Signs Temp Pulse Pulse Resp BP BP Pulse Ox 01/01/22 14:54 76 01/01/22 11:20 98.6 F 73 18 151/85 H 92 01/01/22 08:03 98.8 F 76 18 163/84 H 99 01/01/22 07:26 81 01/01/22 04:00 98.2 F 89 18 137/88 96 O2 Del Method 01/01/22 14:54 01/01/22 11:20 Room Air 01/01/22 08:03 Room Air 01/01/22 07:26 01/01/22 04:00 Room Air PG Care Time/CCT Total # of Minutes Spent Total Time Spent: 53 Total Time Spent with Patient: Total time spent is greater than 50% in coordination of care (as documented) at patient's floor/unit and/or counseling patient: patient and family education and support, goals of care, prognosis, hospice, coordination of care. Coding Level of Care Code 53875 Subseq Hosp Care Lvl 3 Diagnoses Pain R52 Palliative care encounter Z51.5
[2022-01-01] MEDS: CALCITRIOL 0.25 MCG CAPSULE PO SCH (20:35)
[2022-01-01] MEDS: ROSUVASTATIN CALCIUM 5 MG TAB PO SCH (20:35)
[2022-01-02] MEDS: D5W AND 1/2NSS 1,000 ML IV SCH ×2 (00:18→14:48)
[2022-01-02] MEDS: LIDOCAINE VISCOUS 2% 15 ML UDC MT SCH ×5 (00:19→23:31)
[2022-01-02] MEDS: HYDROmorphone INJ 0.5 MG/0.5 ML SYR IV PRN (00:55)
[2022-01-02] MEDS: LEVOTHYROXINE SODIUM 125 MCG TABLET PO SCH (05:20)
[2022-01-02 05:57] LABS: BUN Creatinine Ratio 12.6 (10-20); Calcium 7.6 mg/dl (8.5-10.1); Creatinine Clr Calc Pharmacy 14.3 ml/min; Est GFR (African American) 15.4 ml/min; Est GFR (Non-African American) 13.3 ml/min; Magnesium 1.5 mg/dl (1.7-2.4); Potassium 3.2 mmol/L (3.5-5.1)
[2022-01-02 06:13] LABS: Hematocrit (blood only) 26.9 % (40.1-51.0); Hemoglobin 8.7 g/dl (14.0-18.0); Mean Corpuscular Hemoglobin 29.2 pg (25.0-34.0); Mean Corpuscular Hgb Conc 32.3 g/dL (32.0-36.0); Mean Corpuscular Volume 90.3 fL (80.0-100.0); Mean Platelet Volume 11.5 fL (9.4-12.4); Platelet Count 19 K/uL (130-400); RDW Coefficient of Variation 16.4 % (11.5-14.5); RDW Standard Deviation 54.4 fL (36.4-46.3); Red Blood Count 2.98 M/uL (4.63-6.08); White Blood Count 1.07 K/ul (4.8-10.8)
[2022-01-02 06:27] LABS: Dohle Bodies 2+; Eosinophils # (auto) 0.01 K/uL (0-0.50); Eosinophils % (auto) 0.9 %; Giant Platelets 2+; Immature Granulocytes # (auto) 0.04 K/uL (0.00-0.02); Immature Granulocytes % (auto) 3.7 %; Lymphocytes # (auto) 0.13 K/uL (1.2-3.4); Lymphocytes % (auto) 12.1 %; Monocytes # (auto) 0.06 K/uL (0.24-0.82); Monocytes % (auto) 5.6 %; Neutrophils # (auto) 0.83 K/uL (1.4-6.5); Neutrophils % (auto) 77.7 %; Ovalocytes 1+; Platelet Estimate Signific. Decreased (Normal)
[2022-01-02] MEDS: INSULIN ASPART PER UNIT SC SCH ×4 (07:35→20:56)
[2022-01-02] MEDS ORDERED: POTASSIUM CHLORIDE CRTAB 20 MEQ TABCR PO STA (07:53)
[2022-01-02] MEDS: OXYBUTYNIN CHLORIDE XL 5 MG TABCR PO SCH (09:04)
[2022-01-02] MEDS: METOPROLOL SUCC 50MG EXT REL TAB PO SCH (09:05)
[2022-01-02] MEDS: SODIUM BICARBONATE 650 MG TAB PO SCH ×2 (09:05→20:55)
[2022-01-02] MEDS: allopurinoL 300 MG TAB PO SCH (09:05)
[2022-01-02] MEDS: TAMSULOSIN HCL 0.4 MG CAP PO SCH ×2 (09:06→20:55)
[2022-01-02] MEDS: CETIRIZINE HCL 10 MG TABLET PO SCH (09:06)
[2022-01-02] MEDS: PANTOprazole 40 MG TAB PO SCH ×2 (09:06→20:55)
[2022-01-02] MEDS: ADVANCED PROBIOTIC 1250 MG CAPSULE PO SCH (09:06)
[2022-01-02] MEDS: NYSTATIN POWDER 15GM BTL EXT SCH ×3 (09:07→20:56)
[2022-01-02] MEDS: KETOCONAZOLE 2% CR 15 GM TUBE EXT SCH ×2 (09:12→20:56)
--- NOTE | 2022-01-02 09:37 | Nephrology Progress Note ---
Date of Service January 02, 2022 Assessment & Plan (1) Acute kidney injury: Plan: * ALESSANDRA improved once PCN allowed to drain * Patient is nonoliguric * Kidney function is nearing baseline, electrolyte balance is acceptable * Monitor PRP * Recommend conservative medical management. HD unlikely to provide quality of life. Await further input from primary service and Palliative Care (2) CKD (chronic kidney disease) stage 5, GFR less than 15 ml/min: Plan: * Baseline Cr 4.0 (3) Hypertension: Plan: * SBP 150 - 170 mm Hg last 24 hours * Will start Amlodipine 2.5 mg po daily (4) 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: Plan: * Await further input from Oncology and Palliative Care (5) Embolic cerebral infarction: Plan: * Await further input from Oncology and Palliative Care Admission and Anticipated Discharge Date Admission Date: December 28, 2021 Subjective Mr. Crews was evaluated in his hospital room this morning. He awakened to voice and was oriented to self and year. He was able to follow one step commands. Mr. Crews's primary concern was discomfort related to his PCN. He denied fever, ESPINO, or uremic symptoms Review of Systems Constitutional: no fever Eyes: no problem reported Respiratory: no dyspnea Cardiovascular: no chest pain Gastrointestinal: no abdominal pain Genitourinary: + flank pain Physical Exam Constitutional: + ill appearing Eyes: PERRL ENMT: external ear and nose normal, oropharynx normal Neck: trachea midline, no thyromegaly Respiratory: normal respiratory effort, lungs clear to auscultation Cardiovascular: RRR, no murmur, no edema Gastrointestinal (Abdomen): normal bowel sounds, soft, nontender, no hepatosplenomegaly Results & Data ([facility]) Vital Signs (Past 12 Hours) Vital Signs Temp Pulse Pulse Resp BP BP Pulse Ox 01/02/22 09:30 36.9 C 88 18 179/84 H 96 01/02/22 09:00 36.9 C 87 16 187/91 H 94 01/02/22 08:45 36.9 C 76 18 169/87 H 97 01/02/22 08:28 36.8 C 82 18 151/65 H 96 01/02/22 07:31 83 01/02/22 07:27 36.8 C 84 18 182/86 H 96 01/01/22 22:30 73 O2 Del Method 01/02/22 09:30 01/02/22 09:00 01/02/22 08:45 01/02/22 08:28 01/02/22 07:31 01/02/22 07:27 Room Air 01/01/22 22:30 Laboratory Results Laboratory Tests 01/02/22 01/02/22 05:16 05:16 WBC 1.07 L Hgb 8.7 L Hct 26.9 L Plt Count 19 L* Sodium 145 Potassium 3.2 L Chloride 117 H Carbon Dioxide 20 L BUN 52 H Creatinine 4.12 H Est GFR (Non-Af Amer) 13.3 Glucose 175 H Calcium 7.6 L Magnesium 1.5 L Laboratory Tests 12/29/21 12/29/21 12/30/21 06:29 06:29 06:36 Creatinine 5.01 H* 4.98 H* 4.57 H* D 12/31/21 01/01/22 01/02/22 07:56 05:26 05:16 Creatinine 4.39 H 4.31 H 4.12 H PG Care Time/CCT Total # of Minutes Spent Total Time Spent with Patient: Total time spent is greater than 50% in coordination of care (as documented) at patient's floor/unit and/or counseling patient: Coding Level of Care Code 81349 Subseq Hosp Care Lvl 3 Diagnoses Acute kidney injury N17.9 CKD (chronic kidney disease) stage 5, GFR less than 15 ml/min N18.5 Hypertension I10 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 C67.9; C78.00 Embolic cerebral infarction I63.40
[2022-01-02] MEDS: MAGNESIUM SULFATE / D5W 1 GM/100 ML BAG IV SCH ×2 (10:40→12:42)
[2022-01-02] MEDS: COLESTIPOL HCL 1 GM TAB PO SCH ×2 (10:42→21:44)
[2022-01-02] MEDS: amLODIPine BESYLATE 5 MG TAB PO SCH (12:01)
--- NOTE | 2022-01-02 12:23 | Hospitalist Progress Note ---
Date of Service January 02, 2022 Assessment & Plan (1) Acute renal failure superimposed on stage 5 chronic kidney disease, not on chronic dialysis: Plan: Creatinine was about 4 in late October/early November. Was 5.1 on admission Nephrostomy tube was capped in early November after being placed 10/23/21 Creatinine since then has slowly risen. Also with copious diarrhea contributing to dehydration CT abd/pelvis here shows worsening hydronephrosis on right side since the n ephrostomy tube was capped. Pt initially was resistant to having it uncapped/set to drainage for more than a few days as it becomes very uncomfortable He states he does NOT want dialysis, and now given very poor prognosis 2/2 metastatic CA, dialysis is not even an option and is unlikely to improve quality of life Appreciate Urology consultation. -have now uncapped his nephrostomy tube and placing to drainage-due to this type of stent causing a lot of discomfort--> Urology suggests either removing it entirely (which may hasten due to worsening renal failure) vs exchanging it for a shorter tube which may be more comfortable. Family weighing options although his pain seems much better today since increasing the dose of oxybutynin Electrotyper and met acidosis both continue to improve with uncapping tube and with giving sodium bicarbonate tablets--> manager field down to 4.1 -Continue NaHCO3 650mg po bid -poor po intake due to mouth sore and lethargy-improving -Continue IVFs with D51/2 NS at 70 mL/hr -follows with Dr Garcia in nephrology clinic-consult Nephrology appreciated--> recommends dc Sensipar, treat HTN with amlodipine if needed-added today;overall poor prognosis and recommends Palliative consult -follow BMP again in AM -Continue to monitor UOP, BPs, volume status -tylenol for mild pain and continue IV dilaudid for severe pain from nephrostomy tube -increased oxybutynin to 10mg daily for severe spasms from tube; continue Flomax bid for spasms (2) Antineoplastic chemotherapy induced pancytopenia: Plan: last chemo about 7-10 days prior to admission severe pancytopenia persists but improving with transfusions, time, and Neupogen shots s/p neupogen and 1 unit of platelets on 12/28 s/p 2 units PRBCs 12/29 s/p platelet transfusion 12/30 and 12/31 B12 and folate normal With mild hematuria and small clots per rectum both now resolved Also with small areas of ICH associated with CVA and possible SDHs-platelets 19 today-we will transfuse platelets again on 01/02 Hgb trending slowly downward again to 8.7 -follow CBC -continue neutropenic precautions. -hopefully approaching gentry. (3) 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: Plan: Undergoing chemotherapy CT chest/abd/pelvis to assess for worsening cancer show bladder ca is stable radiographically, but with increased size left subclavicular LN, has new small pericardial effusion - that could simply be from his progressive renal disease but can't rule out malignant effusion managed by Dr Martinez at [facility] With worsening confusion, expressive aphasia on 12/31--> Head CT shows left 1.3 cm likely mass with surrounding vasogenic edema and other possible 9 mm mass vs meningioma. Brain MRI 01/01 does show left temporal-parietal CVA with small focus of hemorrhage and multiple bilat smaller CVAs suggestive of embolic nature Cannot rule out brain mets given lack of contrast Consult Rad Onc appreciated but since turns out to have CVAs and NOT definitive brain mets, no role for radiation tx -would NOT use steroids for cerebral edema except at low doses for short periods given h/o severe GI bleeding from PUD after taking prednisone earlier this year Palliative Consult appreciated--> most likely family looking to pursue Hospice but want to wait to see if patient will be able to participate in discussions regarding this decision over the next day or so Fortunately, his expressive aphasia is significantly improved on 01/02 and hopefully will continue to do so as the edema around the stroke improves (4) Stroke: Plan: as above 2/2 Afib, embolic CVAs in setting of not being anticoagulated due to GI bleeds, severe thrombocytopenia no further workup needed especially as likely pursuing hospice and cannot tolerate anticoagulation Is already on a statin Blood pressure control (5) Acute encephalopathy: Plan: as above, was likely related to acute bilat CVAs as well as use of opioids, now improving (6) Odynophagia: Plan: possible oral thrush, sores from chemo cannot tolerate magic mouthwash due to taste Now improving with use of IV fluconazole and viscous lidocaine -continue fluconazole 200mg IV daily -continue viscous lidocaine scheduled qid (7) Hypertension: Plan: Has become more elevated today cont metoprolol XL 100mg po daily add on amlodipine 2.5 mg daily as per nephrology (8) Diabetes mellitus, type 2: Plan: with hypoglycemia earlier and now normalized with starting D5 Novolog SSI ordered holding home Trulicity (9) Hypothyroidism: Plan: last 2 TSH levels all high at 11-13 increase levothyroxine to 125mcg daily repeat TSH 6 weeks (10) Hyperlipidemia: Plan: continue Crestor (11) CAD (coronary atherosclerotic disease): Plan: no ischemic symptoms at this time cont beta reynaldo, statin (12) Prolonged PTT: Plan: last 3 PTTs have all been prolonged. INR is normal. he is not on anticoagulation or heparin. Mixing study showed presence of a factor deficiency as PT corrected; also showed presence of a factor inhibitor in PTT mixing study and could not exclude heparin in sample -will have to see if PTT was drawn from his port which would have presence of heparin could repeat PTT from peripheral stick on next check (13) Rapid atrial fibrillation: Plan: presented in rapid a.fib has h/o PAF per records NOT an anticoagulation candidate due to prior GI bleeding, severe thrombocytopenia, etc and unfortunately this is led to embolic strokes which were discovered this admission moved his metoprolol succinate from HS to AM dosing add CCB if needed Now in sinus rhythm, with 7 beats VT asymptomatic on 12/29. EF normal 01/2021 monitor on tele (14) Candidal diaper rash: Plan: nystatin powder TID added fluconazole for oral thrush (15) Chemotherapy-induced fatigue: Plan: patient complains of chronic, progressive weakness. MULTIFACTORIAL - bladder ca, pancytopenia from chemotherapy, decompensated hypothyroidism, diarrhea, malnutrition, deconditioning, acute/chronic renal failure, and now acute CVAs -- all to blame for his weakness. will need PT, OT while here. WIll need rehab placement lives alone - has had recent falls. (16) Tinea pedis: Plan: ketoconazole cream BID (17) Pericardial effusion: Plan: small, as seen on CT here likely due to progressive renal disease cannot rule out effusion from his cancer should be followed over time (18) Bilateral foot pain: Plan: x-rays without fractures not c/o pain here anymore (19) Diarrhea: Plan: present for several months. severe at times stool biofire negative. colonoscopy by [facility] late October with severe diverticular disease present and multiple polyps. at that time no colitis seen on colonoscopy despite seeing it on CT. CT a/p here - continues with findings concerning for distal colitis. radiation induced? (but typical radiation colitis findings were NOT seen on colonoscopy in October) CMV colitis? other cause? Seen by GI here and no further evaluation thought to be necessary given normal colonoscopy as above with similar CT findings Diarrhea now RESOLVED after adding colestipol 1gm BID. Had one loose stool 12/30 -continue colestipol (20) History of duodenal ulcer: Plan: 10/2021 EGD with such cont PPI twice daily (21) Hypomagnesemia: Plan: Low again today-is secondary to poor oral intake and previous diarrhea Replaced with 2 g IV magnesium Follow levels in the morning (22) Sepsis: Plan: admitting providers concerned about such. however, no infectious source found on CT imaging, stool BioFire,UA, and Blood cxs no growth to date Remains afebrile and BCxs now negative > 48 hrs have since dcd empiric cefepime + daptomycin. Plan Updating family at bedside on a daily basis Dispo-continued stay, likely to SNF early next week versus home with hospice although it seems that most likely he may not have enough caregivers to go home with Admission and Anticipated Discharge Date Admission Date: December 28, 2021 Subjective Patient looks and feels much better today and his speech is significantly improved as far as his expressive aphasia. He is able to have fluent conversat ions with me today. He denies any pain in his back. The nurse taped his nephrostomy tube down to the skin to prevent it from moving as much. He does still have a lot of pain through his mouth and tongue. He is eating a little bit more today. No bleeding from anywhere. Denies headache. Telemetry with normal sinus rhythm with rates in 80s to 90s, PACs. Review of Systems Review of Systems: All systems reviewed & are unremarkable except as noted in HPI & below Physical Exam Constitutional: WD/WN, vitals as above Eyes: + anicteric sclerae ENMT: Mouth: + oropharynx abnormality (Erythema improved, no obvious ulcerations, no thrush) Neck: trachea midline, no thyromegaly Respiratory: normal respiratory effort, lungs clear to auscultation Cardiovascular: RRR, no murmur, no edema Chest (Breasts): Chest: normal inspection of chest Gastrointestinal (Abdomen): normal bowel sounds, soft, nontender, no hepatosplenomegaly Inspection/Auscultation: + abdomen abnormal to inspection (right nephrostomy tube coming from right flank) Musculoskeletal: Extremities: extremities normal to inspection; no cyanosis a nd no clubbing Skin: no rashes, warm and dry Neurologic: moves all extremities and awake; no focal motor deficits Speech / Cognition: no expressive aphasia (Significantly improved from previous) and normal cognition Psychiatric: Orientation: alert, oriented x 3 and cooperative Affect: euthymic affect Lymphatic: no lymphedema Results & Data Results & Data ([facility]) Vital Signs (Past 12 Hours) Vital Signs Temp Pulse Pulse Resp BP BP Pulse Ox 01/02/22 10:05 36.8 C 97 H 18 171/93 H 93 01/02/22 10:36 37 C 79 16 177/90 H 96 01/02/22 09:30 36.9 C 88 18 179/84 H 96 01/02/22 09:00 36.9 C 87 16 187/91 H 94 01/02/22 08:45 36.9 C 76 18 169/87 H 97 01/02/22 08:28 36.8 C 82 18 151/65 H 96 01/02/22 07:31 83 01/02/22 07:27 36.8 C 84 18 182/86 H 96 O2 Del Method 01/02/22 10:05 01/02/22 10:36 01/02/22 09:30 01/02/22 09:00 01/02/22 08:45 01/02/22 08:28 01/02/22 07:31 01/02/22 07:27 Room Air Laboratory Results 01/02/22 01/02/22 01/01/22 Range/Units 05:16 05:16 20:31 WBC 1.07 L (4.8-10.8) K/ul RBC 2.98 L (4.63-6.08) M/uL Hgb 8.7 L (14.0-18.0) g/dl Hct 26.9 L (40.1-51.0) % MCV 90.3 (80.0-100.0) fL MCH 29.2 (25.0-34.0) pg MCHC 32.3 (32.0-36.0) g/dL RDW Std Deviation 54.4 H (36.4-46.3) fL RDW Coeff of Josie 16.4 H (11.5-14.5) % Plt Count 19 L* (130-400) K/uL MPV 11.5 (9.4-12.4) fL Immature Gran % (Auto) 3.7 % Neut % (Auto) 77.7 % Lymph % (Auto) 12.1 % Dewey % (Auto) 5.6 % Eos % (Auto) 0.9 % Baso % (Auto) 0.0 % Neut # (Auto) 0.83 L* (1.4-6.5) K/uL Lymph # (Auto) 0.13 L (1.2-3.4) K/uL Dewey # (Auto) 0.06 L (0.24-0.82) K/uL Eos # (Auto) 0.01 (0-0.50) K/uL Baso # (Auto) 0.00 (0-0.2) K/uL Immature Gran # (Auto) 0.04 H (0.00-0.02) K/uL Dohle Bodies 2+ Platelet Estimate Signific. Decreased L (Normal) Giant Platelets 2+ Ovalocytes 1+ Sodium 145 (136-145) mmol/L Potassium 3.2 L (3.5-5.1) mmol/L Chloride 117 H (98-107) mmol/L Carbon Dioxide 20 L (21-32) mmol/L Anion Gap 8 (3-11) BUN 52 H (6-23) mg/dl Creatinine 4.12 H (0.6-1.4) mg/dl Est Cr Clr Drug Dosing 14.3 ml/min Est GFR ( Amer) 15.4 ml/min Est GFR (Non-Af Amer) 13.3 ml/min BUN/Creatinine Ratio 12.6 (10-20) Glucose 175 H (70-99(Fasting)) mg/dl POC Glucose 138 H (70-99) mg/dl Calcium 7.6 L (8.5-10.1) mg/dl Magnesium 1.5 L (1.7-2.4) mg/dl 01/01/22 Range/Units 16:47 WBC (4.8-10.8) K/ul RBC (4.63-6.08) M/uL Hgb (14.0-18.0) g/dl Hct (40.1-51.0) % MCV (80.0-100.0) fL MCH (25.0-34.0) pg MCHC (32.0-36.0) g/dL RDW Std Deviation (36.4-46.3) fL RDW Coeff of Josie (11.5-14.5) % Plt Count (130-400) K/uL MPV (9.4-12.4) fL Immature Gran % (Auto) % Neut % (Auto) % Lymph % (Auto) % Dewey % (Auto) % Eos % (Auto) % Baso % (Auto) % Neut # (Auto) (1.4-6.5) K/uL Lymph # (Auto) (1.2-3.4) K/uL Dewey # (Auto) (0.24-0.82) K/uL Eos # (Auto) (0-0.50) K/uL Baso # (Auto) (0-0.2) K/uL Immature Gran # (Auto) (0.00-0.02) K/uL Dohle Bodies Platelet Estimate (Normal) Giant Platelets Ovalocytes Sodium (136-145) mmol/L Potassium (3.5-5.1) mmol/L Chloride (98-107) mmol/L Carbon Dioxide (21-32) mmol/L Anion Gap (3-11) BUN (6-23) mg/dl Creatinine (0.6-1.4) mg/dl Est Cr Clr Drug Dosing ml/min Est GFR ( Amer) ml/min Est GFR (Non-Af Amer) ml/min BUN/Creatinine Ratio (10-20) Glucose (70-99(Fasting)) mg/dl POC Glucose 146 H (70-99) mg/dl Calcium (8.5-10.1) mg/dl Magnesium (1.7-2.4) mg/dl PG Care Time/CCT Total # of Minutes Spent Total Time Spent with Patient: Total time spent is greater than 50% in coordination of care (as documented) at patient's floor/unit and/or counseling patient: Coding Level of Care Code 89833 Subseq Hosp Care Lvl 3 Diagnoses Acute renal failure superimposed on stage 5 chronic kidney disease, not on chronic dialysis N17.9; N18.5 Antineoplastic chemotherapy induced pancytopenia D61.810; T45.1X5A 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 C67.9; C78.00 Stroke I63.9 Acute encephalopathy G93.40 Odynophagia R13.10 Hypertension I10 Diabetes mellitus, type 2 E11.9 Hypothyroidism E03.9 Hypothyroidism type: acquired Hyperlipidemia E78.2 Hyperlipidemia type: mixed hyperlipidemia CAD (coronary atherosclerotic disease) I25.10 Prolonged PTT R79.1 Rapid atrial fibrillation I48.91 Candidal diaper rash B37.2; L22 Chemotherapy-induced fatigue R53.83; T45.1X5A Tinea pedis B35.3 Pericardial effusion I31.3 Bilateral foot pain M79.671; M79.672 Diarrhea R19.7 History of duodenal ulcer Z87.19 Hypomagnesemia E83.42 Sepsis A41.9 (1) Hypothyroidism Hypothyroidism type: acquired Qualified Code(s): E03.9 - Hypothyroidism, unspecified (2) Hyperlipidemia Hyperlipidemia type: mixed hyperlipidemia Qualified Code(s): E78.2 - Mixed hyperlipidemia
[2022-01-02] MEDS: FLUCONAZOLE 200 MG/100 ML BAG IV SCH (14:49)
[2022-01-02] MEDS: CALCITRIOL 0.25 MCG CAPSULE PO SCH (20:55)
[2022-01-02] MEDS: ROSUVASTATIN CALCIUM 5 MG TAB PO SCH (20:56)
[2022-01-03] MEDS: LEVOTHYROXINE SODIUM 125 MCG TABLET PO SCH (03:57)
[2022-01-03] MEDS: D5W AND 1/2NSS 1,000 ML IV SCH ×2 (03:58→16:55)
[2022-01-03] MEDS: LIDOCAINE VISCOUS 2% 15 ML UDC MT SCH ×4 (04:16→23:17)
[2022-01-03] MEDS: HYDROmorphone INJ 0.5 MG/0.5 ML SYR IV PRN ×2 (06:04→18:07)
[2022-01-03] MEDS: NYSTATIN POWDER 15GM BTL EXT SCH ×3 (07:32→21:23)
[2022-01-03] MEDS: TAMSULOSIN HCL 0.4 MG CAP PO SCH ×2 (07:32→21:26)
[2022-01-03] MEDS: KETOCONAZOLE 2% CR 15 GM TUBE EXT SCH ×2 (07:32→21:23)
[2022-01-03] MEDS: OXYBUTYNIN CHLORIDE XL 5 MG TABCR PO SCH (07:33)
[2022-01-03] MEDS: PANTOprazole 40 MG TAB PO SCH ×2 (07:34→21:26)
[2022-01-03] MEDS: METOPROLOL SUCC 50MG EXT REL TAB PO SCH (07:34)
[2022-01-03] MEDS: allopurinoL 300 MG TAB PO SCH (07:34)
[2022-01-03] MEDS: SODIUM BICARBONATE 650 MG TAB PO SCH ×2 (07:34→21:23)
[2022-01-03] MEDS: CETIRIZINE HCL 10 MG TABLET PO SCH (07:34)
[2022-01-03] MEDS: ADVANCED PROBIOTIC 1250 MG CAPSULE PO SCH (07:34)
[2022-01-03 07:39] LABS: Hematocrit (blood only) 26.2 % (40.1-51.0); Hemoglobin 8.7 g/dl (14.0-18.0); Mean Corpuscular Hemoglobin 29.3 pg (25.0-34.0); Mean Corpuscular Hgb Conc 33.2 g/dL (32.0-36.0); Mean Corpuscular Volume 88.2 fL (80.0-100.0); Platelet Count 20 K/uL (130-400); RDW Coefficient of Variation 16.4 % (11.5-14.5); Red Blood Count 2.97 M/uL (4.63-6.08); White Blood Count 1.69 K/ul (4.8-10.8)
[2022-01-03] MEDS: INSULIN ASPART PER UNIT SC SCH ×4 (07:40→21:22)
[2022-01-03 07:59] LABS: Dohle Bodies 2+; Echinocytes 1+; Immature Granulocytes # (auto) 0.07 K/uL (0.00-0.02); Immature Granulocytes % (auto) 4.1 %; Lymphocytes # (auto) 0.15 K/uL (1.2-3.4); Lymphocytes % (auto) 8.9 %; Monocytes # (auto) 0.09 K/uL (0.24-0.82); Monocytes % (auto) 5.3 %; Neutrophils # (auto) 1.38 K/uL (1.4-6.5); Neutrophils % (auto) 81.7 %
[2022-01-03 08:00] LABS: BUN Creatinine Ratio 12.4 (10-20); Calcium 7.8 mg/dl (8.5-10.1); Creatinine Clr Calc Pharmacy 16.2 ml/min; Est GFR (Non-African American) 15.5 ml/min; Magnesium 1.8 mg/dl (1.7-2.4); Potassium 3.4 mmol/L (3.5-5.1)
[2022-01-03] MEDS ORDERED: POTASSIUM CHLORIDE CRTAB 20 MEQ TABCR PO STA (08:08)
[2022-01-03] MEDS ORDERED: MAGNESIUM SULFATE / D5W 1 GM/100 ML BAG IV ONE (08:08)
--- NOTE | 2022-01-03 09:18 | Nephrology Progress Note ---
Date of Service January 03, 2022 Assessment & Plan (1) Acute kidney injury: Plan: * ALESSANDRA resolved once PCN allowed to drain * Patient remains nonoliguric * Kidney function has returned to baseline, electrolyte balance is acceptable * Monitor PRP * Discussed medical POC and role of JUNIOR ESTIMATOR with Mr. Crews and his today. Mr. Crews and his agree that dialysis will not improve Sawyer's quality of life. They do not wish to pursue this option if his condition deteriorates. Mr. Crews desires only conservative medical management (2) CKD (chronic kidney disease) stage 5, GFR less than 15 ml/min: Plan: * Baseline Cr 4.0 (3) Hypertension: Plan: * SBP improved to 120 - 140 mm Hg last 24 hours * Continue Amlodipine 2.5 mg po daily (4) 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: Plan: * Await further input from Oncology and Palliative Care * Arrangements are being discussed for VIR to change out R PCN at [facility] (5) Embolic cerebral infarction: Plan: * Await further input from Oncology and Palliative Care Admission and Anticipated Discharge Date Admission Date: December 28, 2021 Subjective Mr. Crews was evaluated in his hospital room this morning. His was at bedside. Mr. Crews has continued discomfort related to his PCN. He hopes to have this changed out to improve his comfort level. He currently denies fever, ESPINO, or uremic symptoms Review of Systems Constitutional: no fever Eyes: no problem reported Respiratory: no dyspnea Cardiovascular: no chest pain Gastrointestinal: no abdominal pain Genitourinary: + flank pain Physical Exam Constitutional: + ill appearing Eyes: PERRL ENMT: external ear and nose normal, oropharynx normal Neck: trachea midline, no thyromegaly Respiratory: normal respiratory effort, lungs clear to auscultation Cardiovascular: RRR, no murmur, no edema Gastrointestinal (Abdomen): normal bowel sounds, soft, nontender, no hepatosplenomegaly Results & Data ([facility]) Vital Signs (Past 12 Hours) Vital Signs Temp Pulse Pulse Resp BP Pulse Ox O2 Del Method 01/03/22 07:15 36.6 C 156 H 20 101/73 96 Room Air 01/02/22 22:10 119 H Laboratory Results Laboratory Tests 01/03/22 01/03/22 07:21 07:21 WBC 1.69 L Hgb 8.7 L Hct 26.2 L Plt Count 20 L* Sodium 142 Potassium 3.4 L Chloride 114 H Carbon Dioxide 21 BUN 45 H Creatinine 3.63 H D Glucose 182 H Calcium 7.8 L Magnesium 1.8 Laboratory Tests 12/29/21 12/29/21 12/30/21 06:29 06:29 06:36 Creatinine 5.01 H* 4.98 H* 4.57 H* D 12/31/21 01/01/22 01/02/22 07:56 05:26 05:16 Creatinine 4.39 H 4.31 H 4.12 H 01/03/22 07:21 Creatinine 3.63 H D PG Care Time/CCT Total # of Minutes Spent Total Time Spent with Patient: Total time spent is greater than 50% in coordination of care (as documented) at patient's floor/unit and/or counseling patient: Coding Level of Care Code 12313 Subseq Hosp Care Lvl 3 Diagnoses Acute kidney injury N17.9 CKD (chronic kidney disease) stage 5, GFR less than 15 ml/min N18.5 Hypertension I10 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 C67.9; C78.00 Embolic cerebral infarction I63.40
[2022-01-03] MEDS: COLESTIPOL HCL 1 GM TAB PO SCH (09:28)
[2022-01-03] MEDS: FLUCONAZOLE 200 MG/100 ML BAG IV SCH (15:30)
[2022-01-03] MEDS ORDERED: METOPROLOL TARTRATE 1 MG/ML VIAL IV STA (17:15)
[2022-01-03] MEDS ORDERED: bisacodyL 10 MG SUPP PR STA (17:15)
--- NOTE | 2022-01-03 17:34 | Hospitalist Progress Note ---
Date of Service January 03, 2022 Assessment & Plan (1) Acute renal failure superimposed on stage 5 chronic kidney disease, not on chronic dialysis: Plan: Creatinine was about 4 in late October/early November. Was 5.1 on admission Nephrostomy tube was capped in early November after being placed 10/23/21 Creatinine since then has slowly risen. Also with copious diarrhea contributing to dehydration CT abd/pelvis here shows worsening hydronephrosis on right side since the n ephrostomy tube was capped. Pt initially resistant to having it uncapped/set to drainage for more than a few days as it becomes very uncomfortable He states he does NOT want dialysis, and now given very poor prognosis 2/2 metastatic CA, dialysis is not even an option and is unlikely to improve quality of life Appreciate Urology consultation. -have now uncapped his nephrostomy tube and placed to drainage-due to this type of stent causing a lot of discomfort--> Urology suggests either removing it entirely (which may hasten due to worsening renal failure) vs exchanging it for a shorter tube (as an outpatient with IR at [facility]) which may be more comfortable. Family weighing options although his pain seems much better today since increasing the dose of oxybutynin and giving IV dilaudid Sas Administrator and met acidosis both significantly improved on a daily basis since uncapping tube and with giving sodium bicarbonate tablets--> assistant corporation counsel down to 3.63 -Continue NaHCO3 650mg po bid -poor po intake due to mouth sore and lethargy-improving appetite but ongoing oral pain--> change to pureed diet -Continue IVFs with D51/2 NS at 70 mL/hr -follows with Dr Garcia in nephrology clinic-consult Nephrology appreciated--> recommends dc Sensipar, treat HTN with amlodipine if needed; overall poor prognosis and recommends Palliative consult -follow BMP again in AM -Continue to monitor UOP, BPs, volume status -tylenol for mild pain and continue IV dilaudid for severe pain from nephrostomy tube. Will need to add on po pain meds in prep for discharge to SNF -trial of po oxycodone -increased oxybutynin to 10mg daily for severe spasms from tube; continue Flomax bid for spasms (2) Antineoplastic chemotherapy induced pancytopenia: Plan: last chemo about 7-10 days prior to admission severe pancytopenia persists but improving with transfusions, time, and Neupogen shots s/p neupogen and 1 unit of platelets on 12/28 s/p 2 units PRBCs 12/29 s/p platelet transfusion 12/30 and 12/31, 01/01 due to bleeding and plts<20k B12 and folate normal With mild hematuria and small clots per rectum both now resolved Also with small areas of ICH associated with CVA and possible SDHs Hgb stable again today at 8.7, plts stable at 20k, WBC count uptrending -follow CBC -continue neutropenic precautions. -has likely reached gentry. (3) 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: Plan: Undergoing chemotherapy CT chest/abd/pelvis to assess for worsening cancer show bladder ca is stable radiographically, but with increased size left subclavicular LN, has new small pericardial effusion - that could simply be from his progressive renal disease but can't rule out malignant effusion managed by Dr Martinez at [facility] With worsening confusion, expressive aphasia on 12/31--> Head CT shows left 1.3 cm likely mass with surrounding vasogenic edema and other possible 9 mm mass vs meningioma. Brain MRI 01/01 does show left temporal-parietal CVA with small focus of hemorrhage and multiple bilat smaller CVAs suggestive of embolic nature Cannot rule out brain mets given lack of contrast Consult Rad Onc appreciated but since turns out to have CVAs and NOT definitive brain mets, no role for radiation tx -would NOT use steroids for cerebral edema except at low doses for short periods given h/o severe GI bleeding from PUD after taking prednisone earlier this year Palliative Consult appreciated--> most likely family and patient looking to pursue Hospice but ok with ongoing transfusions, treatment for renal failure, IVFs, etc. Fortunately, his expressive aphasia is significantly improved since 01/02 and hopefully will continue to do so as the edema around the stroke improves (4) Rapid atrial fibrillation: Plan: presented in rapid a.fib has h/o PAF per records NOT an anticoagulation candidate due to prior GI bleeding, severe thrombocytopenia, etc and unfortunately this is led to embolic strokes which were discovered this admission moved his metoprolol succinate from HS to AM dosing Remained in sinus rhythm for many days, with 7 beats VT asymptomatic on 12/29. EF normal 01/2021 Now back in rapid Afib with rates in 150s on AM 01/03--> add IV lopressor 5mg IV now -increase toprol to add on 25mg hs -continue to monitor on tele (5) Stroke: Plan: as above 2/2 Afib, embolic CVAs in setting of not being anticoagulated due to GI bleeds, severe thrombocytopenia no further workup needed especially as likely pursuing hospice and cannot tolerate anticoagulation Is already on a statin Blood pressure control (6) Acute encephalopathy: Plan: as above, was likely related to acute bilat CVAs as well as use of opioids, now significantly improved (7) Odynophagia: Plan: possible oral thrush, sores from chemo cannot tolerate magic mouthwash due to taste Now improving with use of IV fluconazole and viscous lidocaine Still with pain with chewing food--> change to pureed diet -continue fluconazole 200mg IV daily -continue viscous lidocaine scheduled qid (8) Hypertension: Plan: BPs low on 01/03 due to rapid afib cont metoprolol XL 100mg po daily will now hold amlodipine 2.5 mg daily which was added on previously for uncontrolled hypertension (9) Diabetes mellitus, type 2: Plan: with hypoglycemia earlier and now normalized with starting D5 Novolog SSI ordered holding home Trulicity and will not need on discharge (10) Hypothyroidism: Plan: last 2 TSH levels all high at 11-13 increase levothyroxine to 125mcg daily repeat TSH 6 weeks (11) Hyperlipidemia: Plan: continue Crestor (12) CAD (coronary atherosclerotic disease): Plan: no ischemic symptoms at this time cont beta reynaldo, statin (13) Prolonged PTT: Plan: last 3 PTTs have all been prolonged. INR is normal. he is not on anticoagulation or heparin. Mixing study showed presence of a factor deficiency as PT corrected; also showed presence of a factor inhibitor in PTT mixing study and could not exclude heparin in sample -will have to see if PTT was drawn from his port which would have presence of heparin could repeat PTT from peripheral stick if needed accurate reading (14) Candidal diaper rash: Plan: nystatin powder TID added fluconazole for oral thrush (15) Chemotherapy-induced fatigue: Plan: patient complains of chronic, progressive weakness. MULTIFACTORIAL - bladder ca, pancytopenia from chemotherapy, decompensated hypothyroidism, diarrhea, malnutrition, deconditioning, acute/chronic renal failure, and now acute CVAs -- all to blame for his weakness. will need PT, OT while here. WIll need rehab placement lives alone - has had recent falls. (16) Tinea pedis: Plan: ketoconazole cream BID (17) Pericardial effusion: Plan: small, as seen on CT here likely due to progressive renal disease cannot rule out effusion from his cancer should be followed over time (18) Bilateral foot pain: Plan: x-rays without fractures not c/o pain here anymore (19) Diarrhea: Plan: present for several months. severe at times stool biofire negative. colonoscopy by [facility] late October with severe diverticular disease present and multiple polyps. at that time no colitis seen on colonoscopy despite seeing it on CT. CT a/p here - continues with findings concerning for distal colitis. radiation induced? (but typical radiation colitis findings were NOT seen on colonoscopy in October) CMV colitis? other cause? Seen by GI here and no further evaluation thought to be necessary given normal colonoscopy as above with similar CT findings Diarrhea now RESOLVED after adding colestipol 1gm BID. Had one loose stool 12/30 NOW WITH CONSTIPATION after being on opioids fo severe pain--> dc colestipol and add bisacodyl suppos x 1 (20) History of duodenal ulcer: Plan: 10/2021 EGD with such cont PPI twice daily (21) Hypomagnesemia: Plan: secondary to poor oral intake and previous diarrhea resolved after replacement Follow levels in the morning Hypokalemia-continue to replace but is likely exacerbated by poor po intake and NaHCO3 tabs (22) Sepsis: Plan: admitting providers concerned about such. however, no infectious source found on CT imaging, stool BioFire,UA, and Blood cxs no growth to date Remains afebrile and BCxs now negative > 48 hrs have since dcd empiric cefepime + daptomycin. Plan Updating family at bedside on a daily basis Dispo-continued stay, likely to SNF early next week versus home with hospice although it seems that most likely he may not have enough caregivers to go home with Had CODE discussion on 01/03 and patient wants to change to DNR/DNI Admission and Anticipated Discharge Date Admission Date: December 28, 2021 Subjective Having rapid afib since 0500 with rates as high as 150. This caused him to be very anxious and tired today, did not sleep much last night. Still having severe pain in his mouth when he tries to chew any food but apetite is improved today. Is agreeable to pureed diet. Having intermittent pain in lower back now from bed as well as pain at nephrostomy tube site. Also now straining to have a BM all day and is agreeable to a [place] suppository Discussed code status and he is wanting to change status to a DNR/DNI. Review of Systems Review of Systems: All systems reviewed & are unremarkable except as noted in HPI & below Physical Exam Constitutional: WD/WN, vitals as above Eyes: + anicteric sclerae Neck: trachea midline, no thyromegaly Respiratory: normal respiratory effort, lungs clear to auscultation Cardiovascular: Rate/Rhythm: + tachycardic and + irregularly irregular Chest (Breasts): Chest: normal inspection of chest Gastrointestinal (Abdomen): normal bowel sounds, soft, nontender, no hepatosplenomegaly Inspection/Auscultation: + abdomen abnormal to inspection (right nephrostomy tube coming from right flank, urine clear yellow) Musculoskeletal: Extremities: extremities normal to inspection; no cyanosis and no clubbing Skin: no rashes, warm and dry Neurologic: moves all extremities and awake; no focal motor deficits Speech / Cognition: no expressive aphasia (Significantly improved from previous) and normal cognition Psychiatric: Orientation: alert, oriented x 3 and cooperative Affect: euthymic affect Lymphatic: no lymphedema Results & Data Results & Data ([facility]) Vital Signs (Past 12 Hours) Vital Signs Temp Pulse Resp BP BP Pulse Ox O2 Del Method 01/03/22 11:39 36.8 C 110 H 20 163/84 H 94 Room Air 01/03/22 10:24 139/87 01/03/22 07:15 36.6 C 156 H 20 101/73 96 Room Air Laboratory Results 01/03/22 01/03/22 01/03/22 Range/Units 16:30 11:31 07:35 WBC (4.8-10.8) K/ul RBC (4.63-6.08) M/uL Hgb (14.0-18.0) g/dl Hct (40.1-51.0) % MCV (80.0-100.0) fL MCH (25.0-34.0) pg MCHC (32.0-36.0) g/dL RDW Std Deviation (36.4-46.3) fL RDW Coeff of Josie (11.5-14.5) % Plt Count (130-400) K/uL Immature Gran % (Auto) % Neut % (Auto) % Lymph % (Auto) % Christian % (Auto) % Eos % (Auto) % Baso % (Auto) % Neut # (Auto) (1.4-6.5) K/uL Lymph # (Auto) (1.2-3.4) K/uL Christian # (Auto) (0.24-0.82) K/uL Eos # (Auto) (0-0.50) K/uL Baso # (Auto) (0-0.2) K/uL Immature Gran # (Auto) (0.00-0.02) K/uL Dohle Bodies Echinocytes Sodium (136-145) mmol/L Potassium (3.5-5.1) mmol/L Chloride (98-107) mmol/L Carbon Dioxide (21-32) mmol/L Anion Gap (3-11) BUN (6-23) mg/dl Creatinine (0.6-1.4) mg/dl Est Cr Clr Drug Dosing ml/min Est GFR ( Amer) ml/min Est GFR (Non-Af Amer) ml/min BUN/Creatinine Ratio (10-20) Glucose (70-99(Fasting)) mg/dl POC Glucose 161 H 133 H 206 H (70-99) mg/dl Calcium (8.5-10.1) mg/dl Magnesium (1.7-2.4) mg/dl 01/03/22 01/03/22 01/02/22 Range/Units 07:21 07:21 20:46 WBC 1.69 L (4.8-10.8) K/ul RBC 2.97 L (4.63-6.08) M/uL Hgb 8.7 L (14.0-18.0) g/dl Hct 26.2 L (40.1-51.0) % MCV 88.2 (80.0-100.0) fL MCH 29.3 (25.0-34.0) pg MCHC 33.2 (32.0-36.0) g/dL RDW Std Deviation 53.0 H (36.4-46.3) fL RDW Coeff of Josie 16.4 H (11.5-14.5) % Plt Count 20 L* (130-400) K/uL Immature Gran % (Auto) 4.1 % Neut % (Auto) 81.7 % Lymph % (Auto) 8.9 % Christian % (Auto) 5.3 % Eos % (Auto) 0.0 % Baso % (Auto) 0.0 % Neut # (Auto) 1.38 L (1.4-6.5) K/uL Lymph # (Auto) 0.15 L (1.2-3.4) K/uL Christian # (Auto) 0.09 L (0.24-0.82) K/uL Eos # (Auto) 0.00 (0-0.50) K/uL Baso # (Auto) 0.00 (0-0.2) K/uL Immature Gran # (Auto) 0.07 H (0.00-0.02) K/uL Dohle Bodies 2+ Echinocytes 1+ Sodium 142 (136-145) mmol/L Potassium 3.4 L (3.5-5.1) mmol/L Chloride 114 H (98-107) mmol/L Carbon Dioxide 21 (21-32) mmol/L Anion Gap 7 (3-11) BUN 45 H (6-23) mg/dl Creatinine 3.63 H D (0.6-1.4) mg/dl Est Cr Clr Drug Dosing 16.2 ml/min Est GFR ( Amer) 18.0 ml/min Est GFR (Non-Af Amer) 15.5 ml/min BUN/Creatinine Ratio 12.4 (10-20) Glucose 182 H (70-99(Fasting)) mg/dl POC Glucose 158 H (70-99) mg/dl Calcium 7.8 L (8.5-10.1) mg/dl Magnesium 1.8 (1.7-2.4) mg/dl PG Care Time/CCT Total # of Minutes Spent Total Time Spent with Patient: Total time spent is greater than 50% in coordination of care (as documented) at patient's floor/unit and/or counseling patient: Coding Level of Care Code 81967 Subseq Hosp Care Lvl 3 Diagnoses Acute renal failure superimposed on stage 5 chronic kidney disease, not on chronic dialysis N17.9; N18.5 Antineoplastic chemotherapy induced pancytopenia D61.810; T45.1X5A 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 C67.9; C78.00 Rapid atrial fibrillation I48.91 Stroke I63.9 Acute encephalopathy G93.40 Odynophagia R13.10 Hypertension I10 Diabetes mellitus, type 2 E11.9 Hypothyroidism E03.9 Hypothyroidism type: acquired Hyperlipidemia E78.2 Hyperlipidemia type: mixed hyperlipidemia CAD (coronary atherosclerotic disease) I25.10 Prolonged PTT R79.1 Candidal diaper rash B37.2; L22 Chemotherapy-induced fatigue R53.83; T45.1X5A Tinea pedis B35.3 Pericardial effusion I31.3 Bilateral foot pain M79.671; M79.672 Diarrhea R19.7 History of duodenal ulcer Z87.19 Hypomagnesemia E83.42 Sepsis A41.9 (1) Hypothyroidism Hypothyroidism type: acquired Qualified Code(s): E03.9 - Hypothyroidism, unspecified (2) Hyperlipidemia Hyperlipidemia type: mixed hyperlipidemia Qualified Code(s): E78.2 - Mixed hyperlipidemia
[2022-01-03] MEDS: CALCITRIOL 0.25 MCG CAPSULE PO SCH (21:27)
[2022-01-03] MEDS: METOPROLOL SUCC 25MG EXT REL TAB PO SCH (21:28)
[2022-01-03] MEDS: ROSUVASTATIN CALCIUM 5 MG TAB PO SCH (21:31)
[2022-01-04] MEDS: HYDROmorphone INJ 0.5 MG/0.5 ML SYR IV PRN ×2 (00:20→04:58)
[2022-01-04] MEDS: oxyCODONE HCL IR 5 MG TAB (IMMEDIATE RELEASE) PO PRN ×2 (03:37→22:06)
[2022-01-04] MEDS: LIDOCAINE VISCOUS 2% 15 ML UDC MT SCH ×3 (04:59→17:42)
[2022-01-04] MEDS: LEVOTHYROXINE SODIUM 125 MCG TABLET PO SCH (05:00)
--- NOTE | 2022-01-04 07:27 | Ultrasound Report ---
LEFT UPPER EXTREMITY VENOUS DOPPLER HISTORY: Left arm swelling, redness COMPARISON STUDY: None. FINDINGS: The left internal jugular vein is patent. There is normal flow within the left subclavian v ein. There is normal flow and compressibility within the left axillary, basilic, brachial, radial, ul serjio, and visualized cephalic veins. IMPRESSION: No DVT within the left upper extremity. ACT 112: Negative or not required by law. Electronically signed by: Chance Wolff M.D. 01/04/2022 7:24 AM
[2022-01-04 08:33] LABS: Hematocrit (blood only) 25.2 % (40.1-51.0); Hemoglobin 8.2 g/dl (14.0-18.0); Mean Corpuscular Hemoglobin 29.5 pg (25.0-34.0); Mean Corpuscular Hgb Conc 32.5 g/dL (32.0-36.0); Mean Corpuscular Volume 90.6 fL (80.0-100.0); Mean Platelet Volume 11.2 fL (9.4-12.4); Platelet Count 22 K/uL (130-400); RDW Coefficient of Variation 16.5 % (11.5-14.5); RDW Standard Deviation 54.4 fL (36.4-46.3); Red Blood Count 2.78 M/uL (4.63-6.08); White Blood Count 2.27 K/ul (4.8-10.8)
[2022-01-04] MEDS: INSULIN ASPART PER UNIT SC SCH ×4 (08:38→22:15)
--- NOTE | 2022-01-04 08:43 | Nephrology Progress Note ---
Date of Service January 04, 2022 Assessment & Plan (1) Acute kidney injury: Plan: * ALESSANDRA resolved once PCN allowed to drain * Patient remains nonoliguric * Kidney function has returned to baseline, electrolyte balance is acceptable * Monitor PRP * Discussed medical POC and role of NURSE'S AIDES TEACHER with Mr. Crews's daughter today. The family plans to meet w/ hospitalist staff at noon today to goals of care. They expect to transition to comfort measures (2) CKD (chronic kidney disease) stage 5, GFR less than 15 ml/min: Plan: * Baseline Cr 4.0 (3) Hypertension: Plan: * SBP improved to 130 - 170 mm Hg last 24 hours * Continue Amlodipine 2.5 mg po daily (4) 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: Plan: * Await further input from Oncology and Palliative Care * Arrangements are being discussed for VIR to change out R PCN at [facility] (5) Embolic cerebral infarction: Plan: * Await further input from Oncology and Palliative Care Admission and Anticipated Discharge Date Admission Date: December 28, 2021 Subjective Mr. Crews was resting this morning. His daughter was at bedside. She reports that her father was uncomfortable due to the nephrostomy tube. There is concern that he may have suffered another stroke last night and was exhibiting R sided neglect. He was also noted to have diarrhea, fecal incontinence and blood in his stool. The family plans to meet w/ the hospitalist team at noon today to discuss goals of care and possible transition to comfort measures Review of Systems Review of Systems: Unobtainable due to cognitive status Physical Exam Physical Exam: Exam withheld at the request of the family Constitutional: + ill appearing Results & Data ([facility]) Vital Signs (Past 12 Hours) Vital Signs Temp Pulse Resp BP BP Pulse Ox O2 Del Method 01/04/22 03:09 36.8 C 81 18 134/71 93 Room Air 01/04/22 00:02 81 18 161/83 H 95 Room Air Laboratory Results Laboratory Tests 01/04/22 01/04/22 08:17 08:17 WBC 2.27 L Hgb 8.2 L Hct 25.2 L Plt Count 22 L* Sodium 141 Potassium 3.9 Chloride 114 H Carbon Dioxide 21 BUN 49 H Creatinine 3.85 H Glucose 163 H Calcium 7.7 L Magnesium 1.8 PG Care Time/CCT Total # of Minutes Spent Total Time Spent with Patient: Total time spent is greater than 50% in coordination of care (as documented) at patient's floor/unit and/or counseling patient: Coding Level of Care Code 59563 Subseq Hosp Care Lvl 3 Diagnoses Acute kidney injury N17.9 CKD (chronic kidney disease) stage 5, GFR less than 15 ml/min N18.5 Hypertension I10 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 C67.9; C78.00 Embolic cerebral infarction I63.40
[2022-01-04 08:48] LABS: BUN Creatinine Ratio 12.7 (10-20); Calcium 7.7 mg/dl (8.5-10.1); Creatinine Clr Calc Pharmacy 15.3 ml/min; Est GFR (African American) 16.8 ml/min; Est GFR (Non-African American) 14.5 ml/min; Magnesium 1.8 mg/dl (1.7-2.4); Potassium 3.9 mmol/L (3.5-5.1)
[2022-01-04 09:02] LABS: Dohle Bodies 2+; Echinocytes 1+; Eosinophils # (auto) 0.01 K/uL (0-0.50); Eosinophils % (auto) 0.4 %; Immature Granulocytes # (auto) 0.15 K/uL (0.00-0.02); Immature Granulocytes % (auto) 6.6 %; Lymphocytes # (auto) 0.26 K/uL (1.2-3.4); Lymphocytes % (auto) 11.5 %; Monocytes # (auto) 0.12 K/uL (0.24-0.82); Monocytes % (auto) 5.3 %; Neutrophils # (auto) 1.73 K/uL (1.4-6.5); Neutrophils % (auto) 76.2 %
[2022-01-04] MEDS: KETOCONAZOLE 2% CR 15 GM TUBE EXT SCH ×2 (10:05→22:14)
[2022-01-04] MEDS: CETIRIZINE HCL 10 MG TABLET PO SCH (10:05)
[2022-01-04] MEDS: ADVANCED PROBIOTIC 1250 MG CAPSULE PO SCH (10:05)
[2022-01-04] MEDS: allopurinoL 300 MG TAB PO SCH (10:05)
[2022-01-04] MEDS: NYSTATIN POWDER 15GM BTL EXT SCH ×3 (10:06→22:14)
[2022-01-04] MEDS: OXYBUTYNIN CHLORIDE XL 5 MG TABCR PO SCH (10:06)
[2022-01-04] MEDS: METOPROLOL SUCC 50MG EXT REL TAB PO SCH (10:06)
[2022-01-04] MEDS: TAMSULOSIN HCL 0.4 MG CAP PO SCH ×2 (10:07→22:08)
[2022-01-04] MEDS: PANTOprazole 40 MG TAB PO SCH ×2 (10:07→22:10)
[2022-01-04] MEDS: SODIUM BICARBONATE 650 MG TAB PO SCH ×2 (10:07→22:09)
[2022-01-04] MEDS: D5W AND 1/2NSS 1,000 ML IV SCH (11:56)
--- NOTE | 2022-01-04 14:26 | Hospitalist Progress Note ---
Date of Service January 04, 2022 Assessment & Plan (1) Acute renal failure superimposed on stage 5 chronic kidney disease, not on chronic dialysis: Plan: Creatinine was about 4 in late October/early November. Was 5.1 on admission Right sided nephrostomy tube was capped in early November after being placed 10/23/21 Creatinine since then has slowly risen. Also with copious diarrhea contributing to dehydration CT abd/pelvis here shows worsening hydronephrosis on right side since the nephrostomy tube was capped. Pt initially resistant to having it uncapped/set to drainage for more than a few days as it becomes very uncomfortable He states he does NOT want dialysis, and now given very poor prognosis 2/2 metastatic CA, dialysis is not even an option and is unlikely to improve quality of life Appreciate Urology consultation. -have now uncapped his nephrostomy tube and placed to drainage-due to this type of stent causing a lot of discomfort--> Urology suggests either removing it entirely (which may hasten due to worsening renal failure) vs exchanging it for a shorter tube (as an outpatient with IR at [facility]) which may be more comfortable. Family weighing options although his pain is now much improved since increasing the dose of oxybutynin and was giving IV Dilaudid and oxycodone Quality Process Auditor and met acidosis both significantly improved on a daily basis since uncapping tube and with giving sodium bicarbonate tablets--> sweatband maker down to 3.8 -Continue NaHCO3 650mg po bid -poor po intake due to mouth sore and lethargy-improving appetite but ongoing oral pain--> changed to pureed diet, continue Magic mouthwash -Continue IVFs with D51/2 NS at 70 mL/hr -follows with Dr Garcia in nephrology clinic-consult Nephrology appreciated--> recommends dc Sensipar, treat HTN with amlodipine if needed; overall poor prognosis and recommends Palliative consult -follow BMP again in AM -Continue to monitor UOP, BPs, volume status -tylenol for mild pain and continue p.o. oxycodone or IV dilaudid for severe pain from nephrostomy tube. -increased oxybutynin to 10mg daily for severe spasms from tube; continue Flomax bid for spasms (2) Antineoplastic chemotherapy induced pancytopenia: Plan: last chemo about 7-10 days prior to admission severe pancytopenia persists but improving with transfusions, time, and Neupogen shots s/p neupogen and 1 unit of platelets on 12/28 s/p 2 units PRBCs 12/29 s/p platelet transfusion 12/30 and 12/31, 01/01 due to bleeding and plts<20k B12 and folate normal With mild hematuria and small clots per rectum both now resolved Also with small areas of ICH associated with CVA and possible SDHs Hgb stable again today at 8.2, plts improved to 22 k, WBC count continues to be uptrending -follow CBC -continue neutropenic precautions. -has likely reached gentry. (3) 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: Plan: Undergoing chemotherapy CT chest/abd/pelvis to assess for worsening cancer show bladder ca is stable radiographically, but with increased size left subclavicular LN, has new small pericardial effusion - that could simply be from his progressive renal disease but can't rule out malignant effusion managed by Dr Martinez at [facility] With worsening confusion, expressive aphasia on 12/31--> Head CT shows left 1.3 cm likely mass with surrounding vasogenic edema and other possible 9 mm mass vs meningioma. Brain MRI 01/01 does show left temporal-parietal CVA with small focus of hemorrhage and multiple bilat smaller CVAs suggestive of embolic nature Cannot rule out brain mets given lack of contrast Consult Rad Onc appreciated but since turns out to have CVAs and NOT definitive brain mets, no role for radiation tx -would NOT use steroids for cerebral edema except at low doses for short periods given h/o severe GI bleeding from PUD after taking prednisone earlier this year Palliative Consult appreciated--> most likely family and patient looking to pursue Hospice but ok with ongoing transfusions, treatment for renal failure, IVFs, etc. Fortunately, his expressive aphasia is significantly improved since 01/02 and hopefully will continue to do so as the edema around the stroke improves I discussed his care with his oncologist who says that she will not be offering any further chemotherapy moving forward as he is intolerant of it (4) Rapid atrial fibrillation: Plan: presented in rapid a.fib has h/o PAF per records NOT an anticoagulation candidate due to prior GI bleeding, severe thrombocytop enia, etc and unfortunately this is led to embolic strokes which were discovered this admission Remained in sinus rhythm for many days, with 7 beats VT asymptomatic on 12/29. EF normal 01/2021 Then was back in rapid Afib with rates in 150s on AM 01/03 through the evening of 01/03--> improved with IV lopressor 5mg IV x1 Converted spontaneously to normal sinus rhythm on the evening of 01/04 -increased toprol to add on 25mg hs -continue to monitor on tele (5) Stroke: Plan: as above 2/2 Afib, embolic CVAs in setting of not being anticoagulated due to GI bleeds, severe thrombocytopenia no further workup needed especially as likely pursuing hospice and cannot tolerate anticoagulation Is already on a statin Blood pressure control (6) Acute encephalopathy: Plan: as above, was likely related to acute bilat CVAs as well as use of opioids, now significantly improved (7) Odynophagia: Plan: possible oral thrush, sores from chemo cannot tolerate magic mouthwash due to taste Now improving with use of IV fluconazole and viscous lidocaine Still with pain with chewing food--> change to pureed diet -continue fluconazole 200mg IV daily-change p.o. for tomorrow -Change viscous lidocaine to Magic mouthwash with recipe his girlfriend brought him from home which was successful previously when prescribed at the cancer center (8) Hypertension: Plan: BPs low on 01/03 due to rapid afib cont metoprolol XL 100mg po every morning and 25 mg every afternoon Continue to hold amlodipine 2.5 mg daily due to hypotension that was associated with A. fib, but now A. fib resolved-May need to restart amlodipine (9) Diabetes mellitus, type 2: Plan: with hypoglycemia earlier and now normalized with starting D5 Novolog SSI ordered holding home Trulicity and will not need on discharge (10) Hypothyroidism: Plan: last 2 TSH levels all high at 11-13 increase levothyroxine to 125mcg daily repeat TSH 6 weeks (11) Hyperlipidemia: Plan: continue Crestor (12) CAD (coronary atherosclerotic disease): Plan: no ischemic symptoms at this time cont beta reynaldo, statin (13) Prolonged PTT: Plan: last 3 PTTs have all been prolonged. INR is normal. he is not on anticoagulation or heparin. Mixing study showed presence of a factor deficiency as PT corrected; also showed presence of a factor inhibitor in PTT mixing study and could not exclude heparin in sample -will have to see if PTT was drawn from his port which would have presence of heparin could repeat PTT from peripheral stick if needed accurate reading (14) Candidal diaper rash: Plan: nystatin powder TID added fluconazole for oral thrush (15) Chemotherapy-induced fatigue: Plan: patient complains of chronic, progressive weakness. MULTIFACTORIAL - bladder ca, pancytopenia from chemotherapy, decompensated hypothyroidism, diarrhea, malnutrition, deconditioning, acute/chronic renal failure, and now acute CVAs -- all to blame for his weakness. will need PT, OT while here. WIll need rehab placement lives alone - has had recent falls. (16) Tinea pedis: Plan: ketoconazole cream BID (17) Pericardial effusion: Plan: small, as seen on CT here likely due to progressive renal disease cannot rule out effusion from his cancer should be followed over time (18) Bilateral foot pain: Plan: x-rays without fractures not c/o pain here anymore (19) Diarrhea: Plan: present for several months. severe at times stool biofire negative. colonoscopy by [facility] late October with severe diverticular disease present and multiple polyps. at that time no colitis seen on colonoscopy despite seeing it on CT. CT a/p here - continues with findings concerning for distal colitis. radiation induced? (but typical radiation colitis findings were NOT seen on colonoscopy in October) CMV colitis? other cause? Seen by GI here and no further evaluation thought to be necessary given normal colonoscopy as above with similar CT findings Diarrhea now RESOLVED after adding colestipol 1gm BID. Had one loose stool 12/30 THEN WITH CONSTIPATION after being on opioids fo severe pain--> dcd colestipol and gave bisacodyl suppos x 1--> with BM x 2 on 01/04 with some rectal bleeding (20) History of duodenal ulcer: Plan: 10/2021 EGD with such cont PPI twice daily (21) Hypomagnesemia: Plan: secondary to poor oral intake and previous diarrhea resolved after replacement Follow levels in the morning Hypokalemia-continue to replace but is likely exacerbated by poor po intake and NaHCO3 tabs (22) Sepsis: Plan: admitting providers concerned about such. however, no infectious source found on CT imaging, stool BioFire,UA, and Blood cxs no growth to date Remains afebrile and BCxs now negative > 48 hrs have since dcd empiric cefepime + daptomycin. Plan Updating family at bedside on a daily basis Dispo-continued stay, likely to SNF in the next 1 to 2 days with eventual transition to hospice if he continues to decline Had CODE discussion on 01/03 and patient wants to change to DNR/DNI Also discussed a POLST form with the patient and his family-I left a copy for them to review-this should be completed prior to discharge Admission and Anticipated Discharge Date Admission Date: December 28, 2021 Subjective Patient had a rough night with some further rectal bleeding, also was very drowsy this morning. He did have 2 bowel movements. He had some left upper extremity swelling but a Doppler was performed overnight which was negative for DVT. Patient is a bit less talkative today but still with clear speech and able to express himself. He denies having significant pain anymore in the right flank from the nephrostomy tube. He is still having mouth soreness but was able to eat some of his pured diet. I spent a great deal of time today discussing goals of care with the patient and multiple family members. I introduced the POLST form with the patient and his family and left them a copy to review. Telemetry with rapid atrial fibrillation up until 2229 last evening at which point he converted to normal sinus rhythm and remains with rates in the 80s, some PACs. Review of Systems Review of Systems: All systems reviewed & are unremarkable except as noted in HPI & below Physical Exam Constitutional: WD/WN, vitals as above Eyes: + anicteric sclerae ENMT: Mouth: + oropharynx abnormality (Erythema improved, no obvious ulcerations, no thrush) Neck: trachea midline, no thyromegaly Respiratory: normal respiratory effort, lungs clear to auscultation Cardiovascular: RRR, no murmur, no edema (Except 2+ pitting edema of the left upper arm) Chest (Breasts): Chest: normal inspection of chest Gastrointestinal (Abdomen): normal bowel sounds, soft, nontender, no hepatosplenomegaly Inspection/Auscultation: + abdomen abnormal to inspection (right nephrostomy tube coming from right flank, urine clear yellow) Musculoskeletal: Extremities: extremities normal to inspection; no cyanosis and no clubbing Skin: no rashes, warm and dry Neurologic: moves all extremities and awake; no focal motor deficits Speech / Cognition: no expressive aphasia (Significantly improved from previous) and normal cognition Psychiatric: Orientation: alert, oriented x 3 and cooperative Affect: euthymic affect and + irritable affect Results & Data Results & Data ([facility]) Vital Signs (Past 12 Hours) Vital Signs Temp Pulse Resp BP BP Pulse Ox O2 Del Method 01/04/22 11:39 36.7 C 65 20 158/79 H 94 Room Air 01/04/22 03:09 36.8 C 81 18 134/71 93 Room Air Laboratory Results 01/04/22 01/04/22 01/04/22 Range/Units Unknown Unknown 21:07 WBC (4.8-10.8) K/ul RBC (4.63-6.08) M/uL Hgb (14.0-18.0) g/dl Hct (40.1-51.0) % MCV (80.0-100.0) fL MCH (25.0-34.0) pg MCHC (32.0-36.0) g/dL RDW Std Deviation (36.4-46.3) fL RDW Coeff of Josie (11.5-14.5) % Plt Count (130-400) K/uL MPV (9.4-12.4) fL Immature Gran % (Auto) % Neut % (Auto) % Lymph % (Auto) % Story % (Auto) % Eos % (Auto) % Baso % (Auto) % Neut # (Auto) (1.4-6.5) K/uL Lymph # (Auto) (1.2-3.4) K/uL Story # (Auto) (0.24-0.82) K/uL Eos # (Auto) (0-0.50) K/uL Baso # (Auto) (0-0.2) K/uL Immature Gran # (Auto) (0.00-0.02) K/uL Dohle Bodies Echinocytes Sodium (136-145) mmol/L Potassium (3.5-5.1) mmol/L Chloride (98-107) mmol/L Carbon Dioxide (21-32) mmol/L Anion Gap (3-11) BUN (6-23) mg/dl Creatinine (0.6-1.4) mg/dl Est Cr Clr Drug Dosing ml/min Est GFR ( Amer) ml/min Est GFR (Non-Af Amer) ml/min BUN/Creatinine Ratio (10-20) Glucose (70-99(Fasting)) mg/dl POC Glucose 169 H (70-99) mg/dl Calcium (8.5-10.1) mg/dl Magnesium (1.7-2.4) mg/dl Stool Occult Bld Scrn Positive A (Negative) Stl C. diff Tox B Gene Negative Cdiff Gene (Neg) 01/04/22 01/04/22 01/04/22 Range/Units 16:29 11:49 08:17 WBC 2.27 L (4.8-10.8) K/ul RBC 2.78 L (4.63-6.08) M/uL Hgb 8.2 L (14.0-18.0) g/dl Hct 25.2 L (40.1-51.0) % MCV 90.6 (80.0-100.0) fL MCH 29.5 (25.0-34.0) pg MCHC 32.5 (32.0-36.0) g/dL RDW Std Deviation 54.4 H (36.4-46.3) fL RDW Coeff of Josie 16.5 H (11.5-14.5) % Plt Count 22 L* (130-400) K/uL MPV 11.2 (9.4-12.4) fL Immature Gran % (Auto) 6.6 % Neut % (Auto) 76.2 % Lymph % (Auto) 11.5 % Story % (Auto) 5.3 % Eos % (Auto) 0.4 % Baso % (Auto) 0.0 % Neut # (Auto) 1.73 (1.4-6.5) K/uL Lymph # (Auto) 0.26 L (1.2-3.4) K/uL Story # (Auto) 0.12 L (0.24-0.82) K/uL Eos # (Auto) 0.01 (0-0.50) K/uL Baso # (Auto) 0.00 (0-0.2) K/uL Immature Gran # (Auto) 0.15 H (0.00-0.02) K/uL Dohle Bodies 2+ Echinocytes 1+ Sodium (136-145) mmol/L Potassium (3.5-5.1) mmol/L Chloride (98-107) mmol/L Carbon Dioxide (21-32) mmol/L Anion Gap (3-11) BUN (6-23) mg/dl Creatinine (0.6-1.4) mg/dl Est Cr Clr Drug Dosing ml/min Est GFR ( Amer) ml/min Est GFR (Non-Af Amer) ml/min BUN/Creatinine Ratio (10-20) Glucose (70-99(Fasting)) mg/dl POC Glucose 150 H 167 H (70-99) mg/dl Calcium (8.5-10.1) mg/dl Magnesium (1.7-2.4) mg/dl Stool Occult Bld Scrn (Negative) Stl C. diff Tox B Gene (Neg) 01/04/22 Range/Units 08:17 WBC (4.8-10.8) K/ul RBC (4.63-6.08) M/uL Hgb (14.0-18.0) g/dl Hct (40.1-51.0) % MCV (80.0-100.0) fL MCH (25.0-34.0) pg MCHC (32.0-36.0) g/dL RDW Std Deviation (36.4-46.3) fL RDW Coeff of Josie (11.5-14.5) % Plt Count (130-400) K/uL MPV (9.4-12.4) fL Immature Gran % (Auto) % Neut % (Auto) % Lymph % (Auto) % Story % (Auto) % Eos % (Auto) % Baso % (Auto) % Neut # (Auto) (1.4-6.5) K/uL Lymph # (Auto) (1.2-3.4) K/uL Story # (Auto) (0.24-0.82) K/uL Eos # (Auto) (0-0.50) K/uL Baso # (Auto) (0-0.2) K/uL Immature Gran # (Auto) (0.00-0.02) K/uL Dohle Bodies Echinocytes Sodium 141 (136-145) mmol/L Potassium 3.9 (3.5-5.1) mmol/L Chloride 114 H (98-107) mmol/L Carbon Dioxide 21 (21-32) mmol/L Anion Gap 6 (3-11) BUN 49 H (6-23) mg/dl Creatinine 3.85 H (0.6-1.4) mg/dl Est Cr Clr Drug Dosing 15.3 ml/min Est GFR ( Amer) 16.8 ml/min Est GFR (Non-Af Amer) 14.5 ml/min BUN/Creatinine Ratio 12.7 (10-20) Glucose 163 H (70-99(Fasting)) mg/dl POC Glucose (70-99) mg/dl Calcium 7.7 L (8.5-10.1) mg/dl Magnesium 1.8 (1.7-2.4) mg/dl Stool Occult Bld Scrn (Negative) Stl C. diff Tox B Gene (Neg) PG Care Time/CCT Total # of Minutes Spent Total Time Spent with Patient: Total time spent is greater than 50% in coordination of care (as documented) at patient's floor/unit and/or counseling patient: Coding Level of Care Code 44689 Subseq Hosp Care Lvl 3 Diagnoses Acute renal failure superimposed on stage 5 chronic kidney disease, not on chronic dialysis N17.9; N18.5 Antineoplastic chemotherapy induced pancytopenia D61.810; T45.1X5A 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 C67.9; C78.00 Rapid atrial fibrillation I48.91 Stroke I63.9 Acute encephalopathy G93.40 Odynophagia R13.10 Hypertension I10 Diabetes mellitus, type 2 E11.9 Hypothyroidism E03.9 Hypothyroidism type: acquired Hyperlipidemia E78.2 Hyperlipidemia type: mixed hyperlipidemia CAD (coronary atherosclerotic disease) I25.10 Prolonged PTT R79.1 Candidal diaper rash B37.2; L22 Chemotherapy-induced fatigue R53.83; T45.1X5A Tinea pedis B35.3 Pericardial effusion I31.3 Bilateral foot pain M79.671; M79.672 Diarrhea R19.7 History of duodenal ulcer Z87.19 Hypomagnesemia E83.42 Sepsis A41.9 (1) Hyperlipidemia Hyperlipidemia type: mixed hyperlipidemia Qualified Code(s): E78.2 - Mixed hyperlipidemia (2) Hypothyroidism Hypothyroidism type: acquired Qualified Code(s): E03.9 - Hypothyroidism, unspecified
[2022-01-04] MEDS ORDERED: Nursing to Pharmacy Communication SCH (16:15)
[2022-01-04] MEDS: FLUCONAZOLE 200 MG/100 ML BAG IV SCH (17:02)
[2022-01-04] MEDS: ALUMINUM PO SCH ×2 (17:42→23:25)
[2022-01-04] MEDS: DIPHENHYDRAMINE PO SCH ×2 (17:42→23:25)
[2022-01-04] MEDS: MAGNESIUM PO SCH ×2 (17:42→23:25)
[2022-01-04] MEDS: [UNRECOGNIZED DRUG - OTHER] PO SCH ×2 (17:42→23:25)
[2022-01-04] MEDS ORDERED: DIPHENHYDRAMINE PO SCH (18:00)
[2022-01-04] MEDS ORDERED: [UNRECOGNIZED DRUG - OTHER] PO SCH (18:00)
[2022-01-04] MEDS ORDERED: ALUMINUM PO SCH (18:00)
[2022-01-04] MEDS ORDERED: MAGNESIUM PO SCH (18:00)
[2022-01-04] MEDS: ROSUVASTATIN CALCIUM 5 MG TAB PO SCH (22:09)
[2022-01-04] MEDS: METOPROLOL SUCC 25MG EXT REL TAB PO SCH (22:10)
[2022-01-04] MEDS: CALCITRIOL 0.25 MCG CAPSULE PO SCH (22:13)
[2022-01-05] MEDS: D5W AND 1/2NSS 1,000 ML IV SCH (02:43)
[2022-01-05] MEDS: MAGNESIUM PO SCH ×4 (06:02→23:39)
[2022-01-05] MEDS: ALUMINUM PO SCH ×4 (06:02→23:39)
[2022-01-05] MEDS: DIPHENHYDRAMINE PO SCH ×4 (06:02→23:39)
[2022-01-05] MEDS: [UNRECOGNIZED DRUG - OTHER] PO SCH ×4 (06:02→23:39)
[2022-01-05] MEDS: LEVOTHYROXINE SODIUM 125 MCG TABLET PO SCH (06:03)
[2022-01-05 06:46] LABS: Hematocrit (blood only) 26.3 % (40.1-51.0); Hemoglobin 8.6 g/dl (14.0-18.0); Mean Corpuscular Hemoglobin 29.5 pg (25.0-34.0); Mean Corpuscular Hgb Conc 32.7 g/dL (32.0-36.0); Mean Corpuscular Volume 90.1 fL (80.0-100.0); Nucleated RBC # (auto) 0.02 K/uL (0-0); Nucleated RBC % (auto) 0.8 %; Platelet Count 33 K/uL (130-400); RDW Coefficient of Variation 16.4 % (11.5-14.5); RDW Standard Deviation 54.1 fL (36.4-46.3); Red Blood Count 2.92 M/uL (4.63-6.08); White Blood Count 2.58 K/ul (4.8-10.8)
[2022-01-05 07:08] LABS: BUN Creatinine Ratio 12.4 (10-20); Calcium 7.5 mg/dl (8.5-10.1); Creatinine Clr Calc Pharmacy 15.9 ml/min; Est GFR (African American) 17.6 ml/min; Est GFR (Non-African American) 15.2 ml/min; Magnesium 1.6 mg/dl (1.7-2.4); Potassium 3.7 mmol/L (3.5-5.1)
[2022-01-05] MEDS: METOPROLOL SUCC 50MG EXT REL TAB PO SCH (08:39)
[2022-01-05] MEDS: ADVANCED PROBIOTIC 1250 MG CAPSULE PO SCH (08:39)
[2022-01-05] MEDS: CETIRIZINE HCL 10 MG TABLET PO SCH (08:39)
[2022-01-05] MEDS: allopurinoL 300 MG TAB PO SCH (08:39)
[2022-01-05] MEDS: OXYBUTYNIN CHLORIDE XL 5 MG TABCR PO SCH (08:39)
[2022-01-05] MEDS: PANTOprazole 40 MG TAB PO SCH ×2 (08:40→21:32)
[2022-01-05] MEDS: SODIUM BICARBONATE 650 MG TAB PO SCH ×2 (08:40→21:33)
[2022-01-05] MEDS: NYSTATIN POWDER 15GM BTL EXT SCH ×3 (08:40→21:33)
[2022-01-05] MEDS: TAMSULOSIN HCL 0.4 MG CAP PO SCH ×2 (08:40→21:32)
[2022-01-05] MEDS: FLUCONAZOLE 100 MG TAB PO SCH (08:40)
[2022-01-05] MEDS: KETOCONAZOLE 2% CR 15 GM TUBE EXT SCH ×2 (08:40→21:33)
[2022-01-05] MEDS: INSULIN ASPART PER UNIT SC SCH ×4 (08:43→21:00)
[2022-01-05 08:46] LABS: ALC (manual) 0.08 K/uL (1.2-3.4); ANC (manual) 2.48 K/uL (1.4-6.5); Blast # (manual) 0.03 K/uL (0-0); Blast Cells % (manual) 1 %; Lymphocytes # (manual) 0.08 K/uL (1.2-3.4); Lymphocytes % (manual) 3 %; Monocytes # (manual) 0.03 K/uL (0.24-0.82); Monocytes % (manual) 1 %; Neutrophils # (manual) 2.48 K/uL (1.4-6.5); Neutrophils % (manual) 96 %
[2022-01-05] MEDS ORDERED: FIRST - Mouthwash BLM 119 ML PO SCH (09:00)
[2022-01-05] MEDS ORDERED: MAGNESIUM SULFATE / D5W 1 GM/100 ML BAG IV ONE (09:52)
--- NOTE | 2022-01-05 10:43 | Nephrology Progress Note ---
Date of Service January 05, 2022 Assessment & Plan (1) Acute kidney injury: Plan: ALESSANDRA resolved once PCN allowed to drain. Baseline Cr 4.0. Chart reviewed this am. Kidney function is stable. Electrolyte balance is acceptable. POC discussed w/ primary service. Mr. Crews in DNR/DNI. Plan to transfer to SNF and transition to palliative care as condition declines. No further Nephrology evaluation indicated at this time. Will sign off. Please call if further assistance is needed (2) CKD (chronic kidney disease) stage 5, GFR less than 15 ml/min: (3) Hypertension: (4) 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: (5) Embolic cerebral infarction: Admission and Anticipated Discharge Date Admission Date: December 28, 2021 Results & Data ([facility]) Vital Signs (Past 12 Hours) Vital Signs Temp Pulse Pulse Resp BP BP Pulse Ox 01/05/22 08:21 37 C 86 18 159/69 H 95 01/05/22 07:18 70 01/05/22 03:56 37 C 78 18 157/82 H 94 01/05/22 03:34 83 01/04/22 23:00 37.0 C 80 18 153/78 H 94 O2 Del Method 01/05/22 08:21 Room Air 01/05/22 07:18 01/05/22 03:56 Room Air 01/05/22 03:34 01/04/22 23:00 Room Air Laboratory Results Laboratory Tests 01/05/22 01/05/22 05:55 05:55 WBC 2.58 L Hgb 8.6 L Hct 26.3 L Plt Count 33 L Sodium 139 Potassium 3.7 Chloride 113 H Carbon Dioxide 22 BUN 46 H Creatinine 3.70 H Glucose 129 H Calcium 7.5 L Magnesium 1.6 L Coding Level of Care Code 99222 Subseq Hosp Care Lvl 2 Diagnoses Acute kidney injury N17.9 CKD (chronic kidney disease) stage 5, GFR less than 15 ml/min N18.5 Hypertension I10 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 C67.9; C78.00 Embolic cerebral infarction I63.40
--- NOTE | 2022-01-05 11:07 | CT Scan Report ---
CT head/brain wo con CLINICAL HISTORY: 76 years-old Male with f/u from CVAs and ?SDH. Acute strokelike symptoms. TECHNIQUE: Multiple axial CT images of the head were obtained without contrast. A dose lowering tech nique was utilized adhering to the principles of ALARA. CT DOSE: 884.08 mGy.cm COMPARISON: Head CT 12/31/2021, brain MRI 01/01/2022 FINDINGS: Evolving acute infarct in the left temporal parietal distribution with cytotoxic edema measuring up t o approximately 5 cm. 10 mm focus of increased attenuation centrally on image 10 is unchanged. Additi onal subcentimeter acute periventricular infarcts are also again noted. Age-related involutional douglas ges with chronic microvascular ischemic disease. Chronic right occipital infarct. Calcifications of t he falx cerebri. The bilateral dural abnormalities are better seen on the comparison MRI. 7 mm focus of increased attenuation in the axial axial space adjacent to left frontal lobe on image 18 is unchan ged changed. No midline shift or hydrocephalus. The calvarium is intact. Small mastoid effusions. The paranasal sinuses are generally clear. Unremar kable soft tissues. Prior bilateral lens repair of disconjugate gaze. IMPRESSION: 1. Evolving acute infarct within the left temporoparietal distribution with subtle ill-defined focus of central blood products appearing generally stable from the 01/01/2022 study. 2. Several subcentimeter multifocal periventricular acute infarcts redemonstrated. 3. Age-related involutional changes with chronic microvascular ischemic disease and chronic right occ ipital infarct. 4. Prominent bilateral extra-axial spaces appear stable. The bilateral dural abnormalities are better seen on the comparison brain MRI. ACT 112: Negative or not required by law. The above report was generated using voice recognition software. It may contain grammatical, syntax o r spelling errors. Electronically signed by: Elroy Rosas M.D. 01/05/2022 11:04 AM
--- NOTE | 2022-01-05 15:43 | Palliative Care Progress Note ---
Date of Service January 05, 2022 Assessment & Plan (1) Pain: Plan: Converted to oral oxycodone which has been effective for pain. Continue prn dosing. (2) Palliative care encounter: Plan: Met with Patrick and his daughters at bedside. We reviewed goals of care. Discussed concern that he is not eligible for cancer treatment at this time and is not likely to improve dramatically from his current functional status. He tells me that he would not want CPR and that he would prefer the focus to be on better quality days for his remaining time. Plan will be transfer to SNF with comfort as primary goal. He would prefer not to return to hospital. He asked about transfusions. We discussed that generally they do not improve his comfort and that his platelet count has increased today. He is not entirely willing to rule out the option of transfusion but daughters are aware that transfusion is not necessarily in line with comfort focused care. POLST form completed to reflect his wishes. Admission and Anticipated Discharge Date Admission Date: December 28, 2021 Subjective Having less pain today. Still gets sharp back pain with certain positions. No prn pain medications. Review of Systems Review of Systems: ESAS Pain 1/3 Dyspnea 0/3 Anxiety 1/3 Fatigue 2/3 Drowsiness 0/4 PPS 30% Physical Exam Constitutional: no acute distress Respiratory: normal respiratory effort; no labored breathing Cardiovascular: Rate/Rhythm: regular rate and regular rhythm Skin: warm and dry Neurologic: delayed speech but finding words Results & Data ([facility]) Vital Signs (Past 12 Hours) Vital Signs Temp Pulse Pulse Resp BP BP Pulse Ox 01/05/22 11:51 98.2 F 70 19 159/80 H 96 01/05/22 08:21 98.6 F 86 18 159/69 H 95 01/05/22 07:18 70 01/05/22 03:56 98.6 F 78 18 157/82 H 94 O2 Del Method 01/05/22 11:51 Room Air 01/05/22 08:21 Room Air 01/05/22 07:18 01/05/22 03:56 Room Air PG Care Time/CCT Total # of Minutes Spent Total Time Spent: 55 Total Time Spent with Patient: Total time spent is greater than 50% in coordination of care (as documented) at patient's floor/unit and/or counseling patient: goals of care, code status, polst, prognosis Coding Level of Care Code 24855 Subseq Hosp Care Lvl 3 Diagnoses Pain R52 Palliative care encounter Z51.5
[2022-01-05] MEDS: oxyCODONE HCL IR 5 MG TAB (IMMEDIATE RELEASE) PO PRN (16:19)
--- NOTE | 2022-01-05 20:41 | Hospitalist Progress Note ---
Date of Service January 05, 2022 Assessment & Plan (1) Chemotherapy-induced fatigue: Plan: ongoing. MULTIFACTORIAL - bladder ca, pancytopenia from chemotherapy, decompensated hypothyroidism, malnutrition, deconditioning, acute/chronic renal failure have all contributed to ongoing weakness. receiving PT/OT. SNF needed - planning for [place]. goals of care being discussed between himself and Dr Archuleta from palliative care. (2) Antineoplastic chemotherapy induced pancytopenia: Plan: last chemo 14+ days. severe pancytopenia at time of presentation. counts today all acceptable. s/p neupogen earlier in the stay - neutropenia now resolved. s/p 4 units of platelets earlier this stay; platelets today in the low 30s. s/p 2 units of PRBCs earlier this stay. H/H acceptable today. recent folate/b12 levels acceptable. synthroid dose adjusted earlier this stay due to decompensated hypothyroidism which can contribute to pancytopenia. (3) Diarrhea: Plan: present for several months. severe at times, ongoing. stool biofire negative. colonoscopy by [facility] late October with severe diverticular disease present and multiple polyps. at that time no colitis seen on colonoscopy. CT a/p hospital day #1 - distal colitis. seen by GI - no specific Rx other than bile acid binding agents recommended. diarrhea fully resolved, then became constipated later in the stay. colestipol now d/c. (4) Acute renal failure superimposed on stage 5 chronic kidney disease, not on chronic dialysis: Plan: Creatinine was about 4 in late October/early November. ~5 at time of admission. Nephrostomy tube was capped in early November. Creatinine tim slowly since the tube was capped. CT abd/pelvis early this stay showed worsening hydronephrosis on right side since the nephrostomy tube was capped. [facility] saw in consult - advised draining nephrostomy tube. Since uncapping & draining his creatinine has improved daily since with Cr now <4. Unfortunately the tube causes considerable pain for him. Options including removing the tube completely OR exchanging the tube for shorter one. I asked Dr Awan to see patient to discuss those options. (5) Colitis: Plan: resolved clinically (6) Prolonged PTT: Plan: likely has acquired inhibitor or lupus anticoagulant in setting of advanced cancer. will not pursue any further w/u since we are moving closer to palliative care/comfort care. (7) Sepsis: Plan: ruled out early in the stay. blood cx's negative. all abx stopped. 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: Plan: no further chemo to be offered since the chemo is causing significant morbidity/weakness/fatigue/failure to thrive/toxicity had small pericardial effusion on CT on hospital day #1 -- could be malignant or due to renal failure (11) Diabetes mellitus, type 2: Plan: no Rx needed no further lows (12) Hypothyroidism: Plan: last 3 TSH levels all high increased levothyroxine to 125mcg daily earlier this stay repeat TSH 6 weeks if patient pursuing routine care (13) Hyperlipidemia: Plan: statin (14) CAD (coronary atherosclerotic disease): Plan: no ischemic symptoms at this time cont betablocker cont statin (15) Rapid atrial fibrillation: Plan: presented in rapid a.fib at time admission has h/o PAF per records NOT an anticoagulation candidate due to prior GI bleeding, severe thrombocytopenia, etc cont BB (16) Candidal diaper rash: Plan: nystatin powder TID (17) Tinea pedis: Plan: ketoconazole cream BID (18) Pericardial effusion: Plan: small likely due to progressive renal disease cannot rule out effusion from his cancer (19) Bilateral foot pain: Plan: x-rays without fractures pain resolved (20) History of duodenal ulcer: Plan: 10/2021 EGD with such cont PPI twice daily (21) Embolic cerebral infarction: Plan: confirmed on MRI Brain 01/01/22 likely 2nd to a.fib CT head obtained today - no change in appearance of strokes; no hemorrhagic transformation (22) Odynophagia: Plan: 2nd mucositis from recent neutropenia from chemo - improved (23) Acute encephalopathy: Plan: 2nd to strokes - resolved Plan 3 daughters and 1 son extensively updated at bedside pt's significant other also extensively updated at bedside dispo planning - SNF, with hospice?? Admission and Anticipated Discharge Date Admission Date: December 28, 2021 Subjective main issue is that of right flank pain over the percutaneous nephrostomy tube site any movement causes pain even the gown brushing up against the tube causes pain denies dyspnea he stated he wished to return home all 4 of his children were at bedside - they stated they simply couldn't provide the necessary care he needs at home and therefore [facility] is being pursued he was despondent knowing that no further chemo would be offered moving forward denied any diarrhea tele overnight NSR Review of Systems Review of Systems: gen - no fever cv - no cp pulm - no dyspnea GI - no abd pain, nausea or emesis Physical Exam Physical Exam: gen - NAD mouth - MMM neck - no JVD heart - regular rate, s1 s2, no murmur lungs - CTA b/l, decreased BS L base abd - soft NT ND BS+ back - nephrostomy tube - right flank ext - no edema, pulses 2+ b/l psych - irritable, a/o x 3 skin - mild pallor Results & Data Results & Data ([facility]) Vital Signs (Past 12 Hours) Vital Signs Temp Pulse Pulse Resp BP BP Pulse Ox 01/05/22 19:59 37.0 C 67 18 150/79 H 96 01/05/22 16:01 36.9 C 71 19 169/75 H 98 01/05/22 15:56 70 01/05/22 11:51 36.8 C 70 19 159/80 H 96 O2 Del Method 01/05/22 19:59 Room Air 01/05/22 16:01 01/05/22 15:56 01/05/22 11:51 Room Air Laboratory Results Laboratory Results - last 24 hr 01/04/22 01/05/22 01/05/22 21:07 05:55 05:55 WBC 2.58 L RBC 2.92 L Hgb 8.6 L Hct 26.3 L MCV 90.1 MCH 29.5 MCHC 32.7 RDW Std Deviation 54.1 H RDW Coeff of Josie 16.4 H Plt Count 33 L Absolute Nucleated RBC 0.02 H Nucleated RBC % (auto) 0.8 Neutrophils % (Manual) 96 Lymphocytes % (Manual) 3 Monocytes % (Manual) 1 Blast Cells % (Manual) 1 Neutrophils # (Manual) 2.48 Total Absolute Neuts 2.48 Lymphocytes # (Manual) 0.08 L Total Abs Lymphocytes 0.08 L Monocytes # (Manual) 0.03 L Blast Cells # (Man) 0.03 H Sodium 139 Potassium 3.7 Chloride 113 H Carbon Dioxide 22 Anion Gap 4 BUN 46 H Creatinine 3.70 H Est Cr Clr Drug Dosing 15.9 Est GFR ( Amer) 17.6 Est GFR (Non-Af Amer) 15.2 BUN/Creatinine Ratio 12.4 Glucose 129 H POC Glucose 169 H Calcium 7.5 L Magnesium 1.6 L 01/05/22 01/05/22 01/05/22 07:55 11:41 16:36 WBC RBC Hgb Hct MCV MCH MCHC RDW Std Deviation RDW Coeff of Josie Plt Count Absolute Nucleated RBC Nucleated RBC % (auto) Neutrophils % (Manual) Lymphocytes % (Manual) Monocytes % (Manual) Blast Cells % (Manual) Neutrophils # (Manual) Total Absolute Neuts Lymphocytes # (Manual) Total Abs Lymphocytes Monocytes # (Manual) Blast Cells # (Man) Sodium Potassium Chloride Carbon Dioxide Anion Gap BUN Creatinine Est Cr Clr Drug Dosing Est GFR ( Amer) Est GFR (Non-Af Amer) BUN/Creatinine Ratio Glucose POC Glucose 164 H 157 H 164 H Calcium Magnesium PG Care Time/CCT Total # of Minutes Spent Total Time Spent with Patient: Total time spent is greater than 50% in coordination of care (as documented) at patient's floor/unit and/or counseling patient: Coding Level of Care Code 63207 Subseq Hosp Care Lvl 3 Diagnoses Chemotherapy-induced fatigue R53.83; T45.1X5A Antineoplastic chemotherapy induced pancytopenia D61.810; T45.1X5A Diarrhea R19.7 Acute renal failure superimposed on stage 5 chronic kidney disease, not on chronic dialysis N17.9; N18.5 Colitis K52.9 Prolonged PTT R79.1 Sepsis A41.9 Hypomagnesemia E83.42 Hypertension I10 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 C67.9; C78.00 Diabetes mellitus, type 2 E11.9 Hypothyroidism E03.9 Hypothyroidism type: acquired Hyperlipidemia E78.2 Hyperlipidemia type: mixed hyperlipidemia CAD (coronary atherosclerotic disease) I25.10 Rapid atrial fibrillation I48.91 Candidal diaper rash B37.2; L22 Tinea pedis B35.3 Pericardial effusion I31.3 Bilateral foot pain M79.671; M79.672 History of duodenal ulcer Z87.19 Embolic cerebral infarction I63.40 Odynophagia R13.10 Acute encephalopathy G93.40 (1) Hyperlipidemia Hyperlipidemia type: mixed hyperlipidemia Qualified Code(s): E78.2 - Mixed hyperlipidemia (2) Hypothyroidism Hypothyroidism type: acquired Qualified Code(s): E03.9 - Hypothyroidism, unspecified
[2022-01-05] MEDS: CALCITRIOL 0.25 MCG CAPSULE PO SCH (21:32)
[2022-01-05] MEDS: METOPROLOL SUCC 25MG EXT REL TAB PO SCH (21:32)
[2022-01-05] MEDS: ROSUVASTATIN CALCIUM 5 MG TAB PO SCH (21:32)
[2022-01-06] MEDS: ALUMINUM PO SCH ×3 (05:35→18:15)
[2022-01-06] MEDS: DIPHENHYDRAMINE PO SCH ×3 (05:35→18:15)
[2022-01-06] MEDS: [UNRECOGNIZED DRUG - OTHER] PO SCH ×3 (05:35→18:15)
[2022-01-06] MEDS: MAGNESIUM PO SCH ×3 (05:35→18:15)
[2022-01-06] MEDS: LEVOTHYROXINE SODIUM 125 MCG TABLET PO SCH (05:36)
[2022-01-06 08:14] LABS: Hematocrit (blood only) 28.3 % (40.1-51.0)
[2022-01-06 08:21] LABS: Mean Corpuscular Hemoglobin 28.9 pg (25.0-34.0); Mean Corpuscular Hgb Conc 31.8 g/dL (32.0-36.0); Mean Platelet Volume 13.6 fL (9.4-12.4); Nucleated RBC # (auto) 0.02 K/uL (0-0); Nucleated RBC % (auto) 0.5 %; Platelet Count 54 K/uL (130-400); RDW Coefficient of Variation 16.1 % (11.5-14.5); RDW Standard Deviation 52.7 fL (36.4-46.3); Red Blood Count 3.11 M/uL (4.63-6.08)
[2022-01-06 08:42] LABS: BUN Creatinine Ratio 12.6 (10-20); Calcium 7.7 mg/dl (8.5-10.1); Creatinine Clr Calc Pharmacy 16.8 ml/min; Est GFR (African American) 18.8 ml/min; Est GFR (Non-African American) 16.2 ml/min; Magnesium 1.7 mg/dl (1.7-2.4); Potassium 3.8 mmol/L (3.5-5.1)
[2022-01-06] MEDS ORDERED: MAGNESIUM SULFATE / D5W 1 GM/100 ML BAG IV ONE (09:02)
[2022-01-06] MEDS: SODIUM BICARBONATE 650 MG TAB PO SCH ×2 (09:17→20:00)
[2022-01-06] MEDS: CETIRIZINE HCL 10 MG TABLET PO SCH (09:17)
[2022-01-06] MEDS: allopurinoL 300 MG TAB PO SCH (09:17)
[2022-01-06] MEDS: OXYBUTYNIN CHLORIDE XL 5 MG TABCR PO SCH (09:17)
[2022-01-06] MEDS: METOPROLOL SUCC 50MG EXT REL TAB PO SCH (09:17)
[2022-01-06] MEDS: FLUCONAZOLE 100 MG TAB PO SCH (09:17)
[2022-01-06] MEDS: TAMSULOSIN HCL 0.4 MG CAP PO SCH ×2 (09:18→20:00)
[2022-01-06] MEDS: PANTOprazole 40 MG TAB PO SCH ×2 (09:18→20:00)
[2022-01-06] MEDS: ADVANCED PROBIOTIC 1250 MG CAPSULE PO SCH (09:18)
[2022-01-06] MEDS: KETOCONAZOLE 2% CR 15 GM TUBE EXT SCH ×2 (09:18→20:04)
[2022-01-06] MEDS: NYSTATIN POWDER 15GM BTL EXT SCH ×3 (09:18→20:05)
[2022-01-06] MEDS: INSULIN ASPART PER UNIT SC SCH ×2 (09:19→11:51)
[2022-01-06] MEDS: oxyCODONE HCL IR 5 MG TAB (IMMEDIATE RELEASE) PO PRN ×2 (09:24→16:24)
[2022-01-06] MEDS: CALCITRIOL 0.25 MCG CAPSULE PO SCH (20:00)
[2022-01-06] MEDS: ROSUVASTATIN CALCIUM 5 MG TAB PO SCH (20:00)
[2022-01-06] MEDS: ACETAMINOPHEN 325 MG TAB PO PRN (20:01)
[2022-01-06] MEDS: METOPROLOL SUCC 25MG EXT REL TAB PO SCH (20:04)
--- NOTE | 2022-01-06 21:02 | Hospitalist Progress Note ---
Date of Service January 06, 2022 Assessment & Plan (1) Sundowning: Plan: per family has taken zyprexa in the past thus, start zyprexa 2.5mg HS change oxycodone to dilaudid 1mg q6h prn for pain relief (oxy very sedating per family) re-eval tomorrow (2) Acute encephalopathy: Plan: 2nd to strokes, hospital psychosis, etc during the daytime he is cognitively intact but night-time he sundowns -- see #1 (3) Chemotherapy-induced fatigue: Plan: ongoing. MULTIFACTORIAL - bladder ca, pancytopenia from chemotherapy, decompensated hypothyroidism, malnutrition, deconditioning, acute/chronic renal failure have all contributed to ongoing weakness. receiving PT/OT. SNF needed - planning for [place]. goals of care being discussed between himself and Dr Archuleta from palliative care. moving more so in a palliative direction. (4) Antineoplastic chemotherapy induced pancytopenia: Plan: last chemo 14+ days. severe pancytopenia at time of presentation. counts today all acceptable and gradually climbing. s/p neupogen earlier in the stay - neutropenia now resolved. s/p 4 units of platelets earlier this stay; platelets today in the low 30s. s/p 2 units of PRBCs earlier this stay. H/H acceptable today. recent folate/b12 levels acceptable. synthroid dose adjusted earlier this stay due to decompensated hypothyroidism which can contribute to pancytopenia. (5) Diarrhea: Plan: present for several months. severe at times but improved over last few days. stool biofire negative. colonoscopy by [facility] late October with severe diverticular disease present and multiple polyps. at that time no colitis seen on colonoscopy. CT a/p hospital day #1 - distal colitis. seen by GI - no specific Rx other than bile acid binding agents recommended. diarrhea fully resolved, then became constipated later in the stay. colestipol now d/c. no further diarrhea. (6) Acute renal failure superimposed on stage 5 chronic kidney disease, not on chronic dialysis: Plan: Creatinine was about 4 in late October/early November. ~5 at time of admission. Nephrostomy tube was capped in early November. Creatinine tim slowly since the tube was capped. CT abd/pelvis early this stay showed worsening hydronephrosis on right side since the nephrostomy tube was capped. [facility] saw in consult - advised draining nephrostomy tube. Since uncapping & draining his creatinine has improved daily since with Cr now <4. Unfortunately the tube causes considerable pain for him. Options including removing the tube completely OR exchanging the tube for shorter one. Urology did discuss options with him today; patient, at minimum, wants current tube removed. (7) Colitis: Plan: resolved clinically (8) Prolonged PTT: Plan: likely has acquired inhibitor or lupus anticoagulant in setting of advanced cancer. will not pursue any further w/u since we are moving closer to palliative care/comfort care. (9) Sepsis: Plan: ruled out early in the stay. blood cx's negative. all abx stopped. 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: Plan: no further chemo to be offered since the chemo is causing significant morbidity/weakness/fatigue/failure to thrive/toxicity had small pericardial effusion on CT on hospital day #1 -- could be malignant or due to renal failure (13) Diabetes mellitus, type 2: Plan: no Rx needed no further lows stop BSG checks (14) Hypothyroidism: Plan: last 3 TSH levels all high increased levothyroxine to 125mcg daily earlier this stay repeat TSH 6 weeks if patient pursuing routine care (15) Hyperlipidemia: Plan: statin (16) CAD (coronary atherosclerotic disease): Plan: no ischemic symptoms at this time cont betablocker cont statin (17) Rapid atrial fibrillation: Plan: presented in rapid a.fib at time admission has h/o PAF per records NOT an anticoagulation candidate due to prior GI bleeding, severe thrombocytopenia, etc cont BB no further PAF on monitor (18) Candidal diaper rash: Plan: nystatin powder TID (19) Tinea pedis: Plan: ketoconazole cream BID (20) Pericardial effusion: Plan: small likely due to progressive renal disease cannot rule out effusion from his cancer (21) Bilateral foot pain: Plan: x-rays without fractures pain resolved (22) History of duodenal ulcer: Plan: 10/2021 EGD with such cont PPI twice daily (23) Embolic cerebral infarction: Plan: confirmed on MRI Brain 01/01/22 likely 2nd to a.fib CT head obtained yesterday - no change in appearance of strokes; no hemorrhagic transformation neurologically intact today (24) Odynophagia: Plan: 2nd mucositis from recent neutropenia from chemo - improved/resolved Plan 2 daughters and pt's significant other updated at bedside today dispo planning - SNF ([facility]) Admission and Anticipated Discharge Date Admission Date: December 28, 2021 Subjective urology met with patient today to discuss whether to pull the nephrostomy tube completely OR replace the tube with a shorter one he hadn't made up his mind by the time of my assessment he just received pain meds prior to my arrival thus it was hard to discuss his care plan - was very sleepy 2 daughters and his significant other were at bedside today 1 of his daughters mentions that he continues to sleep poorly at night - restless, in pain, confused, talking in his sleep, moaning at times hasn't slept well in some time family still in agreement with placement at [facility] tele - NSR overnight Review of Systems Review of Systems: gen - fatigue cv - no chest pain pulm - no dyspnea GI - no pain; no diarrhea musculo - back pain, shoulder pain, etc Physical Exam Physical Exam: gen - NAD; very lethargic today (just received pain meds) mouth - MMM; no mucositis neck - no JVD heart - regular rate, s1 s2, no murmur lungs - CTA b/l, decreased BS L base abd - soft NT ND BS+ ext - no edema, pulses 2+ b/l psych - lethargic but does wake up and answer questions Results & Data Results & Data ([facility]) Vital Signs (Past 12 Hours) Vital Signs Temp Pulse Pulse Resp BP Pulse Ox O2 Del Method 01/06/22 18:31 36.7 C 64 18 159/72 H 93 Room Air 01/06/22 16:42 Room Air 01/06/22 15:45 36.6 C 65 18 159/79 H 95 Room Air 01/06/22 15:03 67 Laboratory Results Laboratory Results - last 24 hr 01/06/22 01/06/22 07:36 07:36 WBC 3.80 L RBC 3.11 L Hgb 9.0 L Hct 28.3 L MCV 91.0 MCH 28.9 MCHC 31.8 L RDW Std Deviation 52.7 H RDW Coeff of Josie 16.1 H Plt Count 54 L D MPV 13.6 H Absolute Nucleated RBC 0.02 H Nucleated RBC % (auto) 0.5 Sodium 139 Potassium 3.8 Chloride 112 H Carbon Dioxide 21 Anion Gap 6 BUN 44 H Creatinine 3.50 H Est Cr Clr Drug Dosing 16.8 Est GFR ( Amer) 18.8 Est GFR (Non-Af Amer) 16.2 BUN/Creatinine Ratio 12.6 Glucose 126 H Calcium 7.7 L Magnesium 1.7 PG Care Time/CCT Total # of Minutes Spent Total Time Spent with Patient: Total time spent is greater than 50% in coordination of care (as documented) at patient's floor/unit and/or counseling patient: Coding Level of Care Code 33553 Subseq Hosp Care Lvl 2 Diagnoses Sundowning F05 Acute encephalopathy G93.40 Chemotherapy-induced fatigue R53.83; T45.1X5A Antineoplastic chemotherapy induced pancytopenia D61.810; T45.1X5A Diarrhea R19.7 Acute renal failure superimposed on stage 5 chronic kidney disease, not on chronic dialysis N17.9; N18.5 Colitis K52.9 Prolonged PTT R79.1 Sepsis A41.9 Hypomagnesemia E83.42 Hypertension I10 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 C67.9; C78.00 Diabetes mellitus, type 2 E11.9 Hypothyroidism E03.9 Hypothyroidism type: acquired Hyperlipidemia E78.2 Hyperlipidemia type: mixed hyperlipidemia CAD (coronary atherosclerotic disease) I25.10 Rapid atrial fibrillation I48.91 Candidal diaper rash B37.2; L22 Tinea pedis B35.3 Pericardial effusion I31.3 Bilateral foot pain M79.671; M79.672 History of duodenal ulcer Z87.19 Embolic cerebral infarction I63.40 Odynophagia R13.10 (1) Hyperlipidemia Hyperlipidemia type: mixed hyperlipidemia Qualified Code(s): E78.2 - Mixed hyperlipidemia (2) Hypothyroidism Hypothyroidism type: acquired Qualified Code(s): E03.9 - Hypothyroidism, unspecified
[2022-01-06] MEDS: HYDROmorphone HCL 2 MG TAB PO PRN (22:38)
[2022-01-06] MEDS: OLANZAPINE 2.5 MG TAB PO SCH (22:38)
[2022-01-07] MEDS: DIPHENHYDRAMINE PO SCH ×4 (01:11→17:28)
[2022-01-07] MEDS: [UNRECOGNIZED DRUG - OTHER] PO SCH ×4 (01:11→17:28)
[2022-01-07] MEDS: ALUMINUM PO SCH ×4 (01:11→17:28)
[2022-01-07] MEDS: MAGNESIUM PO SCH ×4 (01:11→17:28)
[2022-01-07] MEDS: LEVOTHYROXINE SODIUM 125 MCG TABLET PO SCH ×2 (05:24→05:28)
[2022-01-07] MEDS: METOPROLOL SUCC 50MG EXT REL TAB PO SCH (09:00)
[2022-01-07] MEDS: ADVANCED PROBIOTIC 1250 MG CAPSULE PO SCH (09:01)
[2022-01-07] MEDS: FLUCONAZOLE 100 MG TAB PO SCH (09:01)
[2022-01-07] MEDS: OXYBUTYNIN CHLORIDE XL 5 MG TABCR PO SCH (09:01)
[2022-01-07] MEDS: allopurinoL 300 MG TAB PO SCH (09:01)
[2022-01-07] MEDS: NYSTATIN POWDER 15GM BTL EXT SCH ×3 (09:02→21:59)
[2022-01-07] MEDS: TAMSULOSIN HCL 0.4 MG CAP PO SCH ×2 (09:02→21:50)
[2022-01-07] MEDS: KETOCONAZOLE 2% CR 15 GM TUBE EXT SCH (09:02)
[2022-01-07] MEDS: CETIRIZINE HCL 10 MG TABLET PO SCH (09:02)
[2022-01-07] MEDS: PANTOprazole 40 MG TAB PO SCH ×2 (09:02→21:50)
[2022-01-07] MEDS: SODIUM BICARBONATE 650 MG TAB PO SCH ×2 (09:02→21:50)
--- NOTE | 2022-01-07 09:15 | Urology Progress Note ---
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: (2) Hydronephrosis: Plan Patient will continue to discuss with his family about how he wishes to handle his nephrostomy tube Will check back If he does wish to have it removed, I likely can perform this tomorrow but I would like to do it under fluoroscopy He should not require anesthesia for this Alternatively may be radiology can help us with removal if it comes to that Admission and Anticipated Discharge Date Admission Date: December 28, 2021 Subjective Lengthy discussion today regarding management of his nephroureteral stent We discussed removal versus conversion to a simple nephrostomy tube versus exchanged to a fresh nephroureteral stent Unfortunately this is a challenging decision for him and he is uncertain how he wishes to proceed He was accompanied by his daughter during the visit this morning and they would like to discuss this and let me know later with they wish to do Physical Exam Constitutional: well developed and well nourished Respiratory: no respiratory distress Cardiovascular: Extremities: no pedal edema Gastrointestinal (Abdomen): Inspection/Auscultation: abdomen normal to inspection Results & Data ([facility]) Vital Signs (Past 12 Hours) Vital Signs Temp Pulse Pulse Resp BP Pulse Ox O2 Del Method 01/07/22 07:21 36.7 C 61 20 164/77 H 93 Room Air 01/07/22 07:00 63 01/06/22 22:15 57 L 01/06/22 23:02 36.7 C 59 L 16 135/72 97 Room Air PG Care Time/CCT Total # of Minutes Spent Total Time Spent with Patient: Total time spent is greater than 50% in coordination of care (as documented) at patient's floor/unit and/or counseling patient: Coding Level of Care Code 61801 Subseq Hosp Care Lvl 2 Diagnoses 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
[2022-01-07] MEDS: HYDROmorphone HCL 2 MG TAB PO PRN (21:50)
[2022-01-07] MEDS: METOPROLOL SUCC 25MG EXT REL TAB PO SCH (21:50)
[2022-01-07] MEDS: CALCITRIOL 0.25 MCG CAPSULE PO SCH (21:50)
[2022-01-07] MEDS: OLANZAPINE 2.5 MG TAB PO SCH (21:50)
[2022-01-07] MEDS: ROSUVASTATIN CALCIUM 5 MG TAB PO SCH (21:50)
--- NOTE | 2022-01-07 22:11 | Hospitalist Progress Note ---
Date of Service January 07, 2022 Assessment & Plan (1) : Plan: much improved cont zyprexa 2.5mg HS (2) Acute encephalopathy: Plan: 2nd to strokes, hospital psychosis, etc improved cont zyprexa HS (3) Chemotherapy-induced fatigue: Plan: ongoing. MULTIFACTORIAL - bladder ca, pancytopenia from chemotherapy, decompensated hypothyroidism, malnutrition, deconditioning, acute/chronic renal failure have all contributed to ongoing weakness. receiving PT/OT. SNF needed - planning for [facility]. goals of care being discussed between himself and Dr Archuleta from palliative care. moving more so in a palliative direction. I had lengthy discussion with his family today - they asked multiple questions about going to SNF with hospice in place. discussed options including d/c to SNF with routine care, but having "bridge" to hospice/palliative care in back pocket if he continues to decline. family concerned he still wants to return home and get "stronger". We discussed that in most cases aggressive PT/OT is typically not in line with hospice. questions answered. will discuss goals of care again with pt tomorrow. (4) Antineoplastic chemotherapy induced pancytopenia: Plan: improved. severe pancytopenia at time of presentation. counts last few days all acceptable and gradually climbing. s/p neupogen earlier in the stay - neutropenia now resolved. s/p 4 units of platelets earlier this stay; platelets today in the low 30s. s/p 2 units of PRBCs earlier this stay. recent folate/b12 levels acceptable. synthroid dose adjusted earlier this stay due to decompensated hypothyroidism which can contribute to pancytopenia. (5) Diarrhea: Plan: present for several months. severe at times but improved this admission, then actually became constipated. stool biofire negative. colonoscopy by [facility] [place] [place] [facility] late October with severe diverticular disease present and multiple polyps. at that time no colitis seen on colonoscopy. no further diarrhea. colestipol stopped. if colonic spasms continue consider KUB x-ray to asses bowel gas pattern & fecal loading. (6) Acute renal failure superimposed on stage 5 chronic kidney disease, not on chronic dialysis: Plan: Creatinine was about 4 in late October/early November. ~5 at time of admission. Nephrostomy tube was capped in early November. Creatinine tim slowly since the tube was capped. CT abd/pelvis early this stay showed worsening hydronephrosis on right side since the nephrostomy tube was capped. [facility] [place] [facility] saw in consult - advised draining nephrostomy tube. Since uncapping & draining his creatinine has improved daily since with Cr now <4. Unfortunately the tube causes considerable pain for him. Options including removing the tube completely OR exchanging the tube for shorter one. Urology discussed options with him once again today - leaning towards removing the tube and not replacing. [facility] [place] [place] [facility] can do this tomorrow. (7) Colitis: Plan: resolved clinically (8) Prolonged PTT: Plan: likely has acquired inhibitor or lupus anticoagulant in setting of advanced cancer. will not pursue any further w/u since we are moving closer to palliative care/comfort care. (9) Sepsis: Plan: ruled out early in the stay. blood cx's negative. all abx stopped. 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: Plan: no further chemo to be offered since the chemo is causing significant morbidity/weakness/fatigue/failure to thrive/toxicity had small pericardial effusion on CT on hospital day #1 -- could be malignant or due to renal failure (13) Diabetes mellitus, type 2: Plan: no Rx needed no further lows stopped BSG checks (14) Hypothyroidism: Plan: last 3 TSH levels all high increased levothyroxine to 125mcg daily earlier this stay repeat TSH 6 weeks if patient pursuing routine care (15) Hyperlipidemia: Plan: statin but consider d/c this (16) CAD (coronary atherosclerotic disease): Plan: no ischemic symptoms at this time cont betablocker cont statin for now but consider discontinuation (17) Rapid atrial fibrillation: Plan: presented in rapid a.fib at time admission has h/o PAF per records NOT an anticoagulation candidate due to prior GI bleeding, severe thrombocytopenia, etc cont BB no further PAF on monitor (18) Candidal diaper rash: Plan: nystatin powder TID (19) Tinea pedis: Plan: ketoconazole cream BID (20) Pericardial effusion: Plan: small likely due to progressive renal disease cannot rule out effusion from his cancer (21) Bilateral foot pain: Plan: x-rays without fractures pain resolved (22) History of duodenal ulcer: Plan: 10/2021 EGD with such cont PPI twice daily (23) Embolic cerebral infarction: Plan: confirmed on MRI Brain 01/01/22 likely 2nd to a.fib most recent CT stable (24) Odynophagia: Plan: 2nd mucositis from recent neutropenia from chemo - improved/resolved Plan total care time today 45 minutes with 25+ minutes spent at bedside discussing care with pt/family Admission and Anticipated Discharge Date Admission Date: December 28, 2021 Subjective patient's children & significant other all at bedside he had a much better night last night - did sleep more soundly, not as confused, not as restless pain overnight controlled main complaint is that of ongoing right flank pain at site of nephrostomy tube urology spoke with him - they can remove the tube tomorrow, possibly under fluoro he is leaning towards simply having the tube removed and NOT placing a shorter one back during the visit he had colonic spasm and felt he needed to have a BM requested bedpan [facility] does have bed for him Review of Systems Review of Systems: gen - fatigue; had decent appetite today cv - no chest pain pulm - no dyspnea GI - spasm; no nausea, no vomiting Physical Exam Physical Exam: gen - NAD; much more awake, alert today mouth - MMM; no mucositis neck - no JVD heart - regular rate, s1 s2, no murmur lungs - CTA b/l; decreased BS L base abd - soft NT ND BS+ ext - no edema, pulses 2+ b/l skin - perc nephro tube R flank - insertion site clean Results & Data Results & Data ([facility]) Vital Signs (Past 12 Hours) Vital Signs Temp Pulse Pulse Resp BP Pulse Ox O2 Del Method 01/07/22 19:25 36.9 C 66 18 170/80 H 96 Room Air 01/07/22 15:05 64 01/07/22 14:23 36.7 C 62 20 190/79 H 92 Room Air 01/07/22 11:10 36.4 C L 61 18 160/83 H 95 Room Air PG Care Time/CCT Total # of Minutes Spent Total Time Spent with Patient: Total time spent is greater than 50% in coordination of care (as documented) at patient's floor/unit and/or counseling patient: Coding Level of Care Code 90540 Subseq Hosp Care Lvl 3 Diagnoses Sundown F05 Acute encephalopathy G93.40 Chemotherapy-induced fatigue R53.83; T45.1X5A Antineoplastic chemotherapy induced pancytopenia D61.810; T45.1X5A Diarrhea R19.7 Acute renal failure superimposed on stage 5 chronic kidney disease, not on chronic dialysis N17.9; N18.5 Colitis K52.9 Prolonged PTT R79.1 Sepsis A41.9 Hypomagnesemia E83.42 Hypertension I10 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 C67.9; C78.00 Diabetes mellitus, type 2 E11.9 Hypothyroidism E03.9 Hypothyroidism type: acquired Hyperlipidemia E78.2 Hyperlipidemia type: mixed hyperlipidemia CAD (coronary atherosclerotic disease) I25.10 Rapid atrial fibrillation I48.91 Candidal diaper rash B37.2; L22 Tinea pedis B35.3 Pericardial effusion I31.3 Bilateral foot pain M79.671; M79.672 History of duodenal ulcer Z87.19 Embolic cerebral infarction I63.40 Odynophagia R13.10 (1) Hyperlipidemia Hyperlipidemia type: mixed hyperlipidemia Qualified Code(s): E78.2 - Mixed hyperlipidemia (2) Hypothyroidism Hypothyroidism type: acquired Qualified Code(s): E03.9 - Hypothyroidism, unspecified
[2022-01-08] MEDS: MAGNESIUM PO SCH ×4 (02:23→17:06)
[2022-01-08] MEDS: [UNRECOGNIZED DRUG - OTHER] PO SCH ×4 (02:23→17:06)
[2022-01-08] MEDS: DIPHENHYDRAMINE PO SCH ×4 (02:23→17:06)
[2022-01-08] MEDS: ALUMINUM PO SCH ×4 (02:23→17:06)
[2022-01-08] MEDS: LEVOTHYROXINE SODIUM 125 MCG TABLET PO SCH (06:28)
[2022-01-08] MEDS: PANTOprazole 40 MG TAB PO SCH ×2 (09:59→20:49)
[2022-01-08] MEDS: HYDROmorphone HCL 2 MG TAB PO PRN (09:59)
[2022-01-08] MEDS: SODIUM BICARBONATE 650 MG TAB PO SCH ×2 (09:59→20:50)
[2022-01-08] MEDS: allopurinoL 300 MG TAB PO SCH (10:00)
[2022-01-08] MEDS: METOPROLOL SUCC 50MG EXT REL TAB PO SCH (10:00)
[2022-01-08] MEDS: TAMSULOSIN HCL 0.4 MG CAP PO SCH ×2 (10:00→20:49)
[2022-01-08] MEDS: OXYBUTYNIN CHLORIDE XL 5 MG TABCR PO SCH (10:00)
[2022-01-08] MEDS: ADVANCED PROBIOTIC 1250 MG CAPSULE PO SCH (10:00)
[2022-01-08] MEDS: FLUCONAZOLE 100 MG TAB PO SCH (10:01)
[2022-01-08] MEDS: CETIRIZINE HCL 10 MG TABLET PO SCH (10:02)
[2022-01-08] MEDS: NYSTATIN POWDER 15GM BTL EXT SCH ×3 (10:02→20:52)
[2022-01-08 10:30] LABS: Hemoglobin 9.4 g/dl (14.0-18.0); Mean Platelet Volume 12.8 fL (9.4-12.4); Platelet Count 110 K/uL (130-400); White Blood Count 4.16 K/ul (4.8-10.8)
[2022-01-08] MEDS: amLODIPine BESYLATE 5 MG TAB PO SCH (10:55)
[2022-01-08 10:58] LABS: BUN Creatinine Ratio 12.7 (10-20); Calcium 7.6 mg/dl (8.5-10.1); Creatinine Clr Calc Pharmacy 17.8 ml/min; Est GFR (African American) 19.6 ml/min; Est GFR (Non-African American) 16.9 ml/min; Potassium 3.7 mmol/L (3.5-5.1)
[2022-01-08 10:59] LABS: Mean Corpuscular Hemoglobin 29.2 pg (25.0-34.0); Mean Corpuscular Hgb Conc 32.4 g/dL (32.0-36.0); Mean Corpuscular Volume 90.1 fL (80.0-100.0); Nucleated RBC # (auto) 0.03 K/uL (0-0); Nucleated RBC % (auto) 0.7 %; RDW Coefficient of Variation 15.9 % (11.5-14.5); RDW Standard Deviation 52.2 fL (36.4-46.3); Red Blood Count 3.22 M/uL (4.63-6.08)
--- NOTE | 2022-01-08 12:00 | Urology Progress Note ---
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: Plan: Nephrostomy tube removed today at bedside Tolerated the procedure well Admission and Anticipated Discharge Date Admission Date: December 28, 2021 Subjective No major changes overnight Creatinine currently 3.3 He would like to have his nephrostomy tube removed Results & Data ([facility]) Vital Signs (Past 12 Hours) Vital Signs Temp Pulse Pulse Resp BP Pulse Ox O2 Del Method 01/08/22 11:48 36.6 C 76 16 174/71 H 93 Room Air 01/08/22 08:13 36.7 C 64 18 174/74 H 93 Room Air 01/08/22 07:37 66 01/08/22 03:45 36.7 C 60 18 173/79 H 96 Room Air PG Care Time/CCT Total # of Minutes Spent Total Time Spent with Patient: Total time spent is greater than 50% in coordination of care (as documented) at patient's floor/unit and/or counseling patient: Coding Level of Care Code 74660 Subseq Hosp Care Lvl 1 Diagnoses 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
[2022-01-08] MEDS: OLANZAPINE 2.5 MG TAB PO SCH (20:49)
[2022-01-08] MEDS: ROSUVASTATIN CALCIUM 5 MG TAB PO SCH (20:49)
[2022-01-08] MEDS: METOPROLOL SUCC 25MG EXT REL TAB PO SCH (20:50)
[2022-01-08] MEDS: CALCITRIOL 0.25 MCG CAPSULE PO SCH (20:51)
[2022-01-08] MEDS ORDERED: MELATONIN 3 MG TAB PO SCH (21:00)
--- NOTE | 2022-01-08 21:15 | Hospitalist Progress Note ---
Date of Service January 08, 2022 Assessment & Plan (1) : Plan: cont zyprexa 2.5mg HS (2) Acute encephalopathy: Plan: 2nd to strokes, hospital psychosis, pain meds, etc continues cont zyprexa HS add melatonin 3mg HS (3) Chemotherapy-induced fatigue: Plan: ongoing. MULTIFACTORIAL - bladder ca, pancytopenia from chemotherapy, decompensated hypothyroidism, malnutrition, deconditioning, acute/chronic renal failure have all contributed to ongoing weakness. overall he has declined significantly this summer from his cancer as well as during this lengthy hospital stay. we are moving rapidly towards hospice and a comfort care pathway. BSGs have been stopped. he refuses meds at times. nephro tube has been pulled. no further chemo for cancer. (4) Antineoplastic chemotherapy induced pancytopenia: Plan: improved. severe pancytopenia at time of presentation. counts last few days all acceptable and gradually climbing including today's cbc. s/p neupogen earlier in the stay - neutropenia now resolved. s/p 4 units of platelets earlier this stay; platelets today in the low 30s. s/p 2 units of PRBCs earlier this stay. recent folate/b12 levels acceptable. synthroid dose adjusted earlier this stay due to decompensated hypothyroidism which can contribute to pancytopenia. (5) Diarrhea: Plan: present for several months. severe at times but improved this admission, then actually became constipated. stool biofire negative. colonoscopy by [facility] [place] [facility] late October with severe diverticular disease present and multiple polyps. at that time no colitis seen on colonoscopy. no further diarrhea. colestipol stopped. if colonic spasms continue consider KUB x-ray to asses bowel gas pattern & fecal loading. (6) Acute renal failure superimposed on stage 5 chronic kidney disease, not on chronic dialysis: Plan: Creatinine was about 4 in late October/early November. ~5 at time of admission. Nephrostomy tube was capped in early November. Creatinine tim slowly since the tube was capped. CT abd/pelvis early this stay showed worsening hydronephrosis on right side since the nephrostomy tube was capped. [facility] [place] [facility] saw in consult - advised draining nephrostomy tube. Since uncapping & draining his creatinine has improved daily since with Cr now 3.3. Unfortunately the tube causes considerable pain for him. Options including removing the tube completely OR exchanging the tube for shorter one. Pt wanted tube out - removed at bedside today by Dr Awan. we anticipate that creatinine will slowly rise over time - family & patient aware of this. (7) Colitis: Plan: resolved clinically (8) Prolonged PTT: Plan: likely has acquired inhibitor or lupus anticoagulant in setting of advanced cancer. will not pursue any further w/u since we are moving closer to palliative care/c omfort care. (9) Sepsis: Plan: ruled out early in the stay. blood cx's negative. all abx stopped. (10) Hypomagnesemia: Plan: replaced resolved (11) Hypertension: Plan: uncontrolled likely due to pain, agitation, advanced CKD, etc. 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: Plan: no further chemo to be offered since the chemo is causing significant morbidity/weakness/fatigue/failure to thrive/toxicity had small pericardial effusion on CT on hospital day #1 -- could be malignant or due to renal failure (13) Diabetes mellitus, type 2: Plan: no Rx needed no further lows stopped BSG checks (14) Hypothyroidism: Plan: last 3 TSH levels all high increased levothyroxine to 125mcg daily earlier this stay repeat TSH 6 weeks if patient pursuing routine care (15) Hyperlipidemia: Plan: statin but consider d/c this (16) CAD (coronary atherosclerotic disease): Plan: no ischemic symptoms at this time cont betablocker cont statin for now but consider discontinuation (17) Rapid atrial fibrillation: Plan: presented in rapid a.fib at time admission has h/o PAF per records NOT an anticoagulation candidate due to prior GI bleeding, severe thr ombocytopenia, etc cont BB no further PAF on monitor (18) Candidal diaper rash: Plan: nystatin powder TID (19) Tinea pedis: Plan: ketoconazole cream BID (20) Pericardial effusion: Plan: small likely due to progressive renal disease cannot rule out effusion from his cancer (21) Bilateral foot pain: Plan: x-rays without fractures pain resolved (22) History of duodenal ulcer: Plan: 10/2021 EGD with such cont PPI twice daily (23) Embolic cerebral infarction: Plan: confirmed on MRI Brain 01/01/22 likely 2nd to a.fib most recent CT stable (24) Odynophagia: Plan: 2nd mucositis from recent neutropenia from chemo - resolved Plan pt to d/c to [facility] tomorrow am family aware social work aware Admission and Anticipated Discharge Date Admission Date: December 28, [address] Awan from urology this am removed the pt's R nephrostomy tube at bedside; tolerated such by report he is much more comfortable with the tube out during my visit pt's significant other Marifer was at bedside along with his 3 daughters 1 of the daughters reports that he was restless overnight, confused, having generalized discomfort eating was not as good today as previous remains intermittently confused he is scheduled to go to [place] tomorrow I asked Mr Crews in the presence of his family that if he got sick at [place] and was declining if he would want to be rehospitalized or simply kept comfortable he reported he would want the latter - no further hospital stays desired; he has told Dr Archuleta from palliative care the same Review of Systems Review of Systems: gen - tired cv - no cp pulm - no dyspnea GI - no pain Physical Exam Physical Exam: gen - NAD; a bit sleepy today, somewhat confused mouth - MMM; no mucositis; no thrush neck - no JVD heart - regular rate, s1 s2, no murmur lungs - CTA b/l; decreased BS L base abd - soft NT ND BS+ ext - no edema of legs, pulses 2+ b/l; left arm swelling remains Results & Data Results & Data ([facility]) Vital Signs (Past 12 Hours) Vital Signs Temp Pulse Pulse Resp BP Pulse Ox O2 Del Method 01/08/22 19:54 37.0 C 74 18 159/81 H 96 Room Air 01/08/22 16:02 36.6 C 65 18 181/72 H 97 Room Air 01/08/22 15:29 60 01/08/22 11:48 36.6 C 76 16 174/71 H 93 Room Air Laboratory Results Laboratory Results - last 24 hr 01/08/22 01/08/22 01/08/22 10:06 10:06 15:23 WBC 4.16 L RBC 3.22 L Hgb 9.4 L Hct 29.0 L MCV 90.1 MCH 29.2 MCHC 32.4 RDW Std Deviation 52.2 H RDW Coeff of Josie 15.9 H Plt Count 110 L MPV 12.8 H Absolute Nucleated RBC 0.03 H Nucleated RBC % (auto) 0.7 Sodium 141 Potassium 3.7 Chloride 114 H Carbon Dioxide 21 Anion Gap 6 BUN 43 H Creatinine 3.39 H Est Cr Clr Drug Dosing 17.8 Est GFR ( Amer) 19.6 Est GFR (Non-Af Amer) 16.9 BUN/Creatinine Ratio 12.7 Glucose 117 H Calcium 7.6 L SARS-CoV-2, RNA, NAAT NEGATIVE PG Care Time/CCT Total # of Minutes Spent Total Time Spent with Patient: Total time spent is greater than 50% in coordination of care (as documented) at patient's floor/unit and/or counseling patient: Coding Level of Care Code 23839 Subseq Hosp Care Lvl 2 Diagnoses Sundowning F05 Acute encephalopathy G93.40 Chemotherapy-induced fatigue R53.83; T45.1X5A Antineoplastic chemotherapy induced pancytopenia D61.810; T45.1X5A Diarrhea R19.7 Acute renal failure superimposed on stage 5 chronic kidney disease, not on chronic dialysis N17.9; N18.5 Colitis K52.9 Prolonged PTT R79.1 Sepsis A41.9 Hypomagnesemia E83.42 Hypertension I10 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 C67.9; C78.00 Diabetes mellitus, type 2 E11.9 Hypothyroidism E03.9 Hypothyroidism type: acquired Hyperlipidemia E78.2 Hyperlipidemia type: mixed hyperlipidemia CAD (coronary atherosclerotic disease) I25.10 Rapid atrial fibrillation I48.91 Candidal diaper rash B37.2; L22 Tinea pedis B35.3 Pericardial effusion I31.3 Bilateral foot pain M79.671; M79.672 History of duodenal ulcer Z87.19 Embolic cerebral infarction I63.40 Odynophagia R13.10 (1) Hyperlipidemia Hyperlipidemia type: mixed hyperlipidemia Qualified Code(s): E78.2 - Mixed hyperlipidemia (2) Hypothyroidism Hypothyroidism type: acquired Qualified Code(s): E03.9 - Hypothyroidism, unspecified
[2022-01-09] MEDS: MAGNESIUM PO SCH ×2 (00:07→06:39)
[2022-01-09] MEDS: DIPHENHYDRAMINE PO SCH ×2 (00:07→06:39)
[2022-01-09] MEDS: [UNRECOGNIZED DRUG - OTHER] PO SCH ×2 (00:07→06:39)
[2022-01-09] MEDS: ALUMINUM PO SCH ×2 (00:07→06:39)
[2022-01-09] MEDS: LEVOTHYROXINE SODIUM 125 MCG TABLET PO SCH (07:15)
[2022-01-09] MEDS: ADVANCED PROBIOTIC 1250 MG CAPSULE PO SCH (07:16)
[2022-01-09 07:52] VITALS: BP 170/73; PULSE 70; TEMP 98.6; O2SAT 94
--- NOTE | 2022-01-09 08:17 | Discharge Summary ---
Date of Service date of admission - December 28, 2021 date of discharge - January 09, 2022 Admission HPI Per Admitting Provider 76 year old male w/ bladder cancer w/ lung mets on chemotherapy, BPH, CAD, HTN, HLD, DM2, GI bleed, CKD4, and recent admission due to obstructive urinary sym ptoms (11/29-12/04) who presents due to several days of generalized weakness and diarrhea. He was seen in the emergency department 3 days ago for similar symptoms. He was found to be anemic with a hemoglobin of 6.7 and thus, received transfusion with 1 unit PRBCs. He was discharged home after transfusion with his oncologist on board with the plan. However, weakness has continued at home as well as diarrhea. He comes in with family as he feels he is unable to function at home. Denies chest pain, palpitations, nausea, vomiting, fever, chills, shortness of breath, coughing, abdominal pain, rashes, headache, dizziness, urinary symptoms. Upon arrival to to the ED today, patient found to be tachycardic up to the 130s at times. Vital signs within normal limits otherwise. Lab work significant for pancytopenia with white blood count of 0.39, hemoglobin 8.2, platelet count 12. BUN of 67 and creatinine of 5.10. Magnesium 1.4. Urinalysis with 3+ blood, trace leuk esterase, negative nitrites. Chest x-ray negative. Principal Diagnosis 1. weakness - multifactorial -- acute on chronic kidney failure; metastatic bladder cancer; diarrhea; decompensated hypothyroidism; dehydration; severe pancytopenia from chemotherapy. 2. stage 4 bladder cancer. 3. h/o right-sided nephrostomy tube - s/p removal 01/08/22. 4. pancytopenia due to chemotherapy. 5. chronic kidney disease stage 4. 6. hypertension. 7. type 2 diabetes. 8. coronary artery disease. 9. candidal diaper rash - improved. 10. tinea pedis b/l. 11. episode of atrial fibrillation. 12. b/l embolic strokes likely 2nd to #11. Discharge Exam gen - NAD mouth - MMM; no mucositis; no thrush; ulcers resolved neck - no JVD heart - RRR, s1 s2, no murmur lungs - CTA b/l; decreased BS L base abd - soft NT ND BS+ ext - no edema of legs, pulses 2+ b/l; left arm swelling remains Discharge Data Allergies Allergy/AdvReac Type Severity Reaction Status Date / Time Iodinated Contrast Media AdvReac Intermediate Hypertensio Verified 12/28/21 00:51 n atorvastatin [From Lipitor] AdvReac Mild muscle Verified 12/28/21 00:51 aches Consultations [facility] [place] [place] [facility] [place]ine [facility] [place] [place] Palliative Care Routine [facility] [place] Radiation Oncology Routine PT, OT Procedures Performed 4 units of platelets 2 units of blood Ordered Studies 12/28/21 08:12 CT Abd and Pelvis [CT abd pelvis wo con] Routine 12/28/21 08:13 CT chest diagnostic wo con Routine 12/31/21 14:07 CT head/brain wo con Stat 01/01/22 08:00 MRI Brain [MR brain wo con] Routine 01/04/22 00:38 US venous doppler UE LT Routine 01/05/22 09:[address] [CT head/brain wo con] Routine Hospital Course (1) Acute renal failure superimposed on stage 5 chronic kidney disease, not on chronic dialysis: Creatinine was about 4 in late October/early November. ~5 at time of THIS admission. R-sided Nephrostomy tube was capped in early November. Creatinine tim slowly since the tube was capped. CT abd/pelvis early this stay showed worsening hydronephrosis on right side since the nephrostomy tube was capped. [facility] [place] [facility] saw in consult - advised draining nephrostomy tube. Since uncapping & draining his nephrostomy tube his creatinine has improved daily since with Cr now 3.4. Unfortunately the tube was causing considerable pain for him. Options for management included removing the tube completely OR exchanging the tube for a shorter one. Patient wanted the tube out - thus, it was removed at the bedside without complication about 24 hours prior to discharge by Dr Awan. Patient and his family were counseled that his creatinine will slowly rise over time now that the nephrostomy tube has been removed. (2) 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: The patient was seen by both radiation oncology and hematology/oncology during the stay. No further chemo to be offered since the chemo was causing significant morbidity/weakness/fatigue/failure to thrive/toxicity. Had small pericardial effusion on CT on hospital day #1 -- could be malignant or due to renal failure. Did not appear to be causing any compromise during the stay. (3) Embolic cerebral infarction: confirmed on MRI Brain 01/01/22; we could not rule out brain mets entirely strokes likely 2nd to paroxysmal a.fib most recent CT head stable and without hemorrhagic transformation (4) Chemotherapy-induced fatigue: severe, ongoing. MULTIFACTORIAL - bladder cancer, pancytopenia from chemotherapy, decompensated hypothyroidism, malnutrition, deconditioning, acute/chronic renal failure have all contributed to ongoing weakness. overall he declined significantly this summer from his cancer as well as during this lengthy hospital stay. during the hospitalization it was clear we were moving rapidly towards hospice and a comfort care pathway. BSGs were stopped. he refused meds at times. nephrostomy tube was pulled. no further chemo for cancer. at time of discharge to SNF unnecessary medications were stopped and comfort meds were continued (dilaudid prn, zofran prn, ativan prn, etc). (5) : cont zyprexa 2.5mg HS (6) Acute encephalopathy: 2nd to strokes, hospital psychosis, pain meds, etc cont zyprexa HS cont melatonin 3mg HS (7) Antineoplastic chemotherapy induced pancytopenia: improved albeit very slowly during this protracted stay. he had severe pancytopenia at time of presentation. s/p neupogen earlier in the stay - neutropenia now resolved. s/p 4 units of platelets earlier this stay; platelets climbed to 110 before discharge. s/p 2 units of PRBCs earlier this stay. recent folate/b12 levels acceptable. synthroid dose adjusted earlier this stay due to decompensated hypothyroidism which can contribute to pancytopenia. (8) Diarrhea: present for several months. severe at times but improved this admission, then actually became constipated. stool biofire negative. colonoscopy by [facility] late October with severe diverticular disease present and multiple polyps. at that time no colitis seen on colonoscopy. he appeared to have occasional colonic spasms. simply treat with pain meds prn. (9) Colitis: resolved clinically (10) Prolonged PTT: likely has acquired inhibitor or lupus anticoagulant in setting of advanced cancer. will not pursue any further w/u since we are moving towards palliative care/comfort care. (11) Sepsis: RULED OUT early in the stay. blood cx's negative. all abx stopped. (12) Hypomagnesemia: replaced resolved (13) Hypertension: uncontrolled likely due to pain, agitation, advanced CKD, etc. cont metoprolol and amlodipine (14) Diabetes mellitus, type 2: no Rx needed no further lows stopped BSG checks prior to transfer to SNF (15) Hypothyroidism: last 3 TSH levels all high increased levothyroxine to 125mcg daily earlier this stay (16) Hyperlipidemia: statin stopped at time of discharge (17) CAD (coronary atherosclerotic disease): no ischemic symptoms during the visit cont beta reynaldo statin stopped (18) Rapid atrial fibrillation: presented in rapid a.fib at time admission has h/o PAF per records NOT an anticoagulation candidate due to prior GI bleeding, severe thrombocytopenia, etc cont BB (19) Candidal diaper rash: nystatin powder TID (20) Tinea pedis: ketoconazole cream BID (21) Pericardial effusion: small likely due to progressive renal disease cannot rule out effusion from his cancer (22) Bilateral foot pain: x-rays without fractures pain resolved (23) History of duodenal ulcer: 10/2021 EGD with such cont PPI twice daily (24) Odynophagia: 2nd mucositis from recent neutropenia from chemo - resolved Plan extensive discussions held with family and patient leading up to discharge palliative care was formally involved with these discussions to to refine his goals of care POLST form was completed he was made DNR/DNI although he did not formally enter a hospice program before discharge to [facility] the plan was clear that he would remain at the SNF even with ongoing decline he told us several times he would not want to be re-hospitalized the goal of care at SNF will be one of comfort, treating pain and symptoms, etc Total Time Total Time Spent Total Time Spent (In Minutes): 50 Discharge Plan Discharge Items Patient Disposition: Transfer Alf Fac Reason For Visit: WEAKNESS, DIARRHEA Discharge Diagnosis: 1. weakness - multifactorial causes -- acute on chronic kidney failure; met astatic bladder cancer; diarrhea; decompensated hypothyroidism; dehydration; severe pancytopenia from chemotherapy. 2. stage 4 bladder cancer. 3. h/o right-sided nephrostomy tube - now removed on 01/08/22. 4. pancytopenia due to chemotherapy - improved. 5. chronic kidney disease - discharge creatinine 3.4. 6. hypertension. 7. type 2 diabetes. 8. coronary artery disease. 9. candidal diaper rash - improved. 10. tinea pedis b/l. 11. episode of atrial fibrillation this admission. 12. b/l embolic strokes 2nd to #11 during this admission. 13. sundowning & metabolic/toxic encephalopathy - waxes/wanes. 14. h/o duodenal ulcer 2021. 15. 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 16. hypothyroidism. Activity: As commented below Activity Comment: oob to chair if desired by patient Non-emergency contact: Primary Care Provider Call non-emergency contact if: you have any medication questions, your symptoms worsen, your pain is not controlled, your pain is worsening and your pain is unusual for you Follow-up/Referrals: Hilda Berry MD [Primary Care Provider] - Diet: Carb Consistent or DM2 Diet Texture: Easy to Chew Addtl Attending Provider Instructions: Patient has metastatic bladder cancer. He had a protracted stay for the problems listed above in "discharge diagnoses." He has been seen by palliative care during this hospitalization as well as oncology. Chemotherapy has been fully stopped for his cancer. He is not a candidate for ongoing cancer treatment. He completed a POLST form this admission with assistance from the palliative care team. He has voiced that he would like to avoid re-admission to the hospital in the event of ongoing decline. He has not formally enrolled in hospice yet, but he is moving in the direction of such as well as comfort care measures. Goals of care moving forward include better sleep, pain control, control of diarrhea and/or constipation, and quality of life with his family/children/significant other. Please consult palliative care upon admission to [place]. Consider ortiz catheter placement if patient desires. Patient's diabetes has been well controlled with diet alone. Fingerstick blood sugar checks were discontinued at the patient's request. He has a central a-port if he needs any IV medications or therapies. Pending Studies at Discharge: No Stand-Alone Forms: My [facility] Skilled Items Patient informed of condition?: Yes DNR: Yes Discharge Level of Care: Skilled Communicable Disease: No Discharge Prognosis: Deteriorating Lines: None Urinary Catheter: No Medications and DC Order Prescriptions: New amlodipine [Norvasc] 5 mg Tablet 5 mg PO QAM Qty: 30 0RF metoprolol succinate 25 mg Tablet Extended Release 24 Hr 25 mg PO HS Qty: 30 0RF acetaminophen 325 mg Tablet 650 mg PO Q4H PRN (Reason: pain or temp>38 C) Qty: 30 0RF hydromorphone [Dilaudid] 2 mg Tablet 1 mg PO Q6H PRN (Reason: pain) Qty: 30 0RF polyethylene glycol 3350 [Miralax] 17 gram Powder In Packet 17 g PO DAILY Qty: 30 0RF melatonin 3 mg Tablet 3 mg PO HS Qty: 30 0RF nystatin [Nystop] 100,000 unit/gram Powder 1 applic EXT TID PRN (Reason: rash in groin/scrotal region) Qty: 30 0RF ondansetron 4 mg tablet,disintegrating 4 mg PO Q6H PRN (Reason: nausea and vomiting) Qty: 20 0RF lorazepam [Ativan] 0.5 mg tablet 0.5 mg PO Q8H PRN (Reason: anxiety, agitation or sleep) Qty: 20 0RF Magic Mouthwash 300 mL mouthwash 5 ml mucous membrane ACHS PRN (Reason: mouth sores/mouth pain) Qty: 300 0RF Rx Instructions: Benadryl 12.5 mg/5 mL oral elixir; Maalox 200 mg-200 mg-20 mg/5 mL oral suspension; Xylocaine Viscous 2 % mucosal solution;[Generic substitution ok] 1:1:1 compound Per 300 mL. SWISH AND SPIT. Continued albuterol sulfate [Ventolin HFA] 90 mcg/actuation HFA aerosol inhaler 2 puff inhalation QID PRN (Reason: shortness of breath or wheezing) Qty: 18 2RF cetirizine 10 mg Capsule 10 mg PO QAM Probiotic 3 billion cell Capsule 3,000 mmu cells PO QAM Rx Instructions: administer with a meal pantoprazole [Protonix] 40 mg tablet,delayed release (DR/EC) 40 mg PO BID Qty: 60 0RF tamsulosin 0.4 mg Capsule 0.4 mg PO BID oxybutynin chloride 5 mg tablet extended release 24hr 5 mg PO QAM allopurinol 300 mg tablet 300 mg PO QAM fluticasone propionate 50 mcg/actuation spray,suspension 2 spray intranasal DAILY PRN (Reason: nasal congestion) Qty: 1 0RF Rx Instructions: uses for sob Changed metoprolol succinate 100 mg tablet extended release 24 hr 100 mg PO QAM Qty: 90 3RF Label Comments: 08/14/19 - PT STATES CURRENTLY NOT TAKING MEDICATION olanzapine 2.5 mg Tablet 2.5 mg PO HS Qty: 30 0RF Rx Instructions: take for 4 nights after chemo levothyroxine 125 mcg capsule 125 mcg PO DAILY Qty: 30 5RF Discontinued rosuvastatin 5 mg tablet 5 mg PO QPM Qty: 90 3RF Trulicity 0.75 mg/0.5 mL pen injector 0.75 mg SQ WEEKLY Qty: 2 0RF Rx Instructions: PT TAKES ON TUESDAY calcitriol 0.25 mcg capsule 0.25 mcg PO QPM cinacalcet 30 mg Tablet 30 mg PO 3XWK Rx Instructions: tue ferrous sulfate 325 mg (65 mg iron) tablet 325 mg PO 3XWK Rx Instructions: Take one tablet Tuesday Carboplatin Tabs 1 tab PO .NAUSEA PRN (Reason: prn after chemo) Gemcitabine Pill 1 tab PO DIRECTED Discharge Orders: Discharge Order (Routine); Ordered 01/09/22 Ordered By: Kev Morales Admission Data Admit Date/Time: 12/28/21 02:53 Attending Provider: Kev Morales Admit Provider: Juan Carlos Romeo Primary Care Provider: Hilda Berry Other Providers: Santosh Piper ; Marifer Archuleta ; Jimy Cabrales Jr ; Carlos Hansen ; Nereida Maddox ; Franklyn Martin ; Ramon Bang ; Juarez Leong ; Santosh Lott Other Interventions: Discharge Summary Assessment (RN) Last Done: 01/09/22 08:01 Coding Level of Care Code D/C DAY MANAGEMENT >30 MINS Diagnoses Acute renal failure superimposed on stage 5 chronic kidney disease, not on chronic dialysis N17.9; N18.5 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 C67.9; C78.00 Embolic cerebral infarction I63.40 Chemotherapy-induced fatigue R53.83; T45.1X5A F05 Acute encephalopathy G93.40 Antineoplastic chemotherapy induced pancytopenia D61.810; T45.1X5A Diarrhea R19.7 Colitis K52.9 Prolonged PTT R79.1 Sepsis A41.9 Hypomagnesemia E83.42 Hypertension I10 Diabetes mellitus, type 2 E11.9 Hypothyroidism E03.9 Hypothyroidism type: acquired Hyperlipidemia E78.2 Hyperlipidemia type: mixed hyperlipidemia CAD (coronary atherosclerotic disease) I25.10 Rapid atrial fibrillation I48.91 Candidal diaper rash B37.2; L22 Tinea pedis B35.3 Pericardial effusion I31.3 Bilateral foot pain M79.671; M79.672 History of duodenal ulcer Z87.19 Odynophagia R13.10
== END 2022-01-09 08:50 | DRG 808 ==
LOC: ED 23:16 → SUATTDRO 12-28 02:53 → EDINP 12-28 02:53 → 2N 12-28 06:09